=== PATIENT | male | born 1960 | race Caucasian/White ===

== ENCOUNTER 2021-10-06 16:36 | Inpatient (IN) | payer OTHER ==
[2021-10-06] MEDS ORDERED: ONDANSETRON 4 MG/2 ML VIAL ONE (22:38)
[2021-10-06] MEDS ORDERED: NA CHLORIDE 0.9% 1,000 ML ONE (22:38)
[2021-10-06] MEDS ORDERED: MORPHINE 4 MG/ML SYR ONE (22:38)
[2021-10-06 23:08] LABS: Absolute Lymphocytes (CBC) 3.1 K/uL (0.7-4.9); Hematocrit 47.7 % (39.6-49.0); Lymphocytes % 19.9 % (15.3-44.8); MPV 8.6 fL (7.6-11.3); RBC Red Blood Cell Count 5.07 M/uL (4.33-5.43)
[2021-10-06 23:13] LABS: Urine Amorphous Sediment 1+ /HPF (NONE SEEN); Urine Bacteria >50 /HPF (NONE SEEN); Urine Mucus 2+ /HPF (NONE SEEN); Urine RBC TNTC /HPF (NONE SEEN)
[2021-10-06 23:29] LABS: Bilirubin Direct 0.2 mg/dL (0-0.2); Bilirubin Total 0.8 mg/dL (0.2-1.0); Potassium 4.7 mmol/L (3.5-5.1); Protein, Total 8.5 g/dL (6.4-8.2)
--- NOTE | 2021-10-07 00:40 | ER ---
Nurse's Notes [facility] Name: Paxton Jordan Age: 61 yrs Sex: Male : 1960 Arrival Date: 10/06/2021 Time: 16:38 Bed 30 Private MD: Diagnosis: Pyelonephritis;Acute cystitis with hematuria Presentation: 10/06 18:20 Chief complaint: Patient states: pt reports blood in urine x1 days. denies pains when ackerman urinating. Coronavirus screen: Vaccine status: Patient reports receiving the 2nd dose of the covid vaccine. Ebola Screen: Patient reports travel to Ebola-affected area in the 21 days before illness onset. Patient reports having traveled to: [place]. Initial Sepsis Screen: Does the patient meet any 2 criteria? No. Patient's initial sepsis screen is negative. Does the patient have a suspected source of infection? No. Patient's initial sepsis screen is negative. Risk Assessment: Do you want to hurt yourself or someone else? Patient reports no desire to harm self or others. Onset of symptoms was October 05, 2021. 18:20 Method Of Arrival: Wheelchair ackerman 18:20 Acuity: MITESH 3 ackerman Triage Assessment: 18:23 General: Appears in no apparent distress. Behavior is calm, cooperative. Pain: ackerman Complains of pain in lumbar area, left low back and right low back. Musculoskeletal: Circulation, motion, and sensation intact. Reports pain in lumbar area, left low back and right low back. Historical: - Allergies: 18:23 No Known Allergies; ackerman - Immunization history:: Adult Immunizations up to date. - Social history:: Smoking status: Patient reports the use of cigarette tobacco products, smokes one-half pack cigarettes per day. Screenin:06 Abuse screen: Denies threats or abuse. Nutritional screening: No deficits noted. bb Tuberculosis screening: No symptoms or risk factors identified. Fall Risk None identified. Assessment: 22:06 General: Appears distressed, uncomfortable, Behavior is cooperative, anxious. Pain: bb Complains of pain in back. Neuro: Level of Consciousness is awake, alert, obeys commands, Oriented to person, place, time, situation. Cardiovascular: Capillary refill < 3 seconds Patient's skin is warm and dry. Respiratory: Respiratory effort is even, unlabored, Respiratory pattern is regular. GI: Abdomen is round. Derm: Skin is pink, warm \\T\\ dry. Musculoskeletal: Circulation, motion, and sensation intact. Reports pain in back. Vital Signs: 18:20 BP 84 / 51; Pulse 85; Resp 20; Temp 98.1(O); Pulse Ox 100% ; Weight 104.33 kg; Height 6 ackerman ft. 0 in. (182.88 cm); 18:20 Body Mass Index 31.19 (104.33 kg, 182.88 cm) ackerman ED Course: 16:38 Patient arrived in ED. as 18:23 Triage completed. ackerman 18:23 Arm band placed on right wrist. ackerman 22:06 Patient has correct armband on for positive identification. Adult w/ patient. bb 22:07 Antonio Henry NP is PHCP. pm1 22:07 Geoffrey Murcia MD is Attending Physician. pm1 23:01 Inserted saline lock: 22 gauge in left forearm, using aseptic technique. Blood ds4 collected. Missed attempt(s): 22 gauge in right wrist. Bleeding controlled, band aid applied, catheter tip intact. 23:24 Stone Protocol In Process Unspecified. EDMT 10/07 00:39 Rob Soto PA is Hospitalizing Provider. pm1 01:41 Carol Anne RN is Primary Nurse. [facility] 02:31 COVID-19 SARS RT PCR (Document "Date of Onset" if Symptomatic) Sent. [facility] Administered Medications: 10/06 23:02 Drug: morphine 4 mg Route: IVP; Site: left femoral; 10/07 01:36 Follow up: Response: No adverse reaction 10/06 23:02 Drug: Zofran (Ondansetron) 4 mg Route: IVP; Site: left forearm; 10/07 01:37 Follow up: Response: No adverse reaction 10/06 23:02 Drug: NS 0.9% 1000 ml Route: IV; Rate: 1000 ml; Site: left forearm; 10/07 02:24 Drug: Insulin Regular Human 10 units {Co-Signature: ernestina (Luna Roblero RN).} Route: sm5 IVP; Site: left forearm; 02:25 Drug: Rocephin (cefTRIAXone) 1 grams Route: IV; Rate: calculated rate; Site: left sm5 forearm; Outcome: 00:39 Decision to Hospitalize by Provider. pm1 17:13 Patient left the ED. [email or web address] Signatures: Dispatcher [employer] EDMS Michelle Gupta Brenda, RN RN Rodrigo Painter ds4 Antonio Henry NP PLANIMETER OPERATOR pm1 Shelley Amaral RN RN jl7 Carol Anne RN RN sm5 Radha Marie RN RN ackerman Luna do
--- NOTE | 2021-10-07 00:40 | EDPHYS ---
Physician Documentation [facility] Name: Paxton Jordan Age: 61 yrs Sex: Male : 1960 Arrival Date: 10/06/2021 Time: 16:38 Bed 30 Private MD: ED Physician Geoffrey Murcia HPI: 10/06 22:19 This 61 yrs old Male presents to ER via Wheelchair with complaints of Urinary Problem - pm1 blood, Back Pain. 22:19 The patient presents with urinary symptoms, Hematuria. Onset: The symptoms/episode pm1 began/occurred today. Modifying factors: The symptoms are alleviated by nothing, the symptoms are aggravated by nothing. Associated signs and symptoms: Pertinent positives: Low back pain that is different from his chronic low back pain, Pertinent negatives: constipation, diarrhea, fever, nausea, vomiting. Severity of symptoms: in the emergency department the symptoms have improved, hematuria appears to be improved. The patient has not experienced similar symptoms in the past. The patient has not recently seen a physician, and does not have an established primary care provider, just [facility]. Historical: - Allergies: 18:23 No Known Allergies; ackerman - Immunization history:: Adult Immunizations up to date. - Social history:: Smoking status: Patient reports the use of cigarette tobacco products, smokes one-half pack cigarettes per day. ROS: 22:19 Constitutional: Negative for fever, chills, and weight loss, Cardiovascular: Negative pm1 for chest pain, palpitations, and edema, Respiratory: Negative for shortness of breath, cough, wheezing, and pleuritic chest pain, Abdomen/GI: Negative for abdominal pain, nausea, vomiting, diarrhea, and constipation. 22:19 MS/Extremity: Negative for injury and deformity, Skin: Negative for injury, rash, and discoloration, Neuro: Negative for headache, weakness, numbness, tingling, and seizure. 22:19 Back: Positive for flank pain, bilaterally. 22:19 : Positive for hematuria, Negative for burning with urination, testicular pain 22:19 All other systems are negative. Exam: 22:19 Constitutional: This is a well developed, well nourished patient who is awake, alert, pm1 and in no acute distress. Head/Face: Normocephalic, atraumatic. 22:19 Skin: Warm, dry with normal turgor. Normal color with no rashes, no lesions, and no evidence of cellulitis. MS/ Extremity: Pulses equal, no cyanosis. Neurovascular intact. Full, normal range of motion. 22:19 Cardiovascular: Exam negative for acute changes, Rate: normal, Rhythm: regular, Pulses: no pulse deficits are appreciated. 22:19 Respiratory: Exam negative for acute changes, respiratory distress, shortness of breath, Breath sounds: are clear throughout. 22:19 Abdomen/GI: Inspection: obese Palpation: soft, in all quadrants, mild abdominal tenderness, in the suprapubic area. 22:19 Back: pain, that is mild, of the sacrum, left low back and right low back, vertebral tenderness, is not appreciated. 22:19 Neuro: Exam negative for acute changes, Orientation: is normal, Mentation: is normal, Motor: moves all fours. Vital Signs: 18:20 BP 84 / 51; Pulse 85; Resp 20; Temp 98.1(O); Pulse Ox 100% ; Weight 104.33 kg; Height 6 ackerman ft. 0 in. (182.88 cm); 18:20 Body Mass Index 31.19 (104.33 kg, 182.88 cm) ackerman MDM: 22:07 Patient medically screened. pm1 22:23 Data reviewed: vital signs. Data interpreted: Pulse oximetry: on room air is 100 %. pm1 Interpretation: normal. 10/07 00:36 Counseling: I had a detailed discussion with the patient and/or guardian regarding: the pm1 historical points, exam findings, and any diagnostic results supporting the discharge/admit diagnosis, lab results, radiology results, the need for further work-up and treatment in the hospital. 10/06 22:06 Order name: Basic Metabolic Panel; Complete Time: 23:57 pm1 10/06 22:06 Order name: CBC with Diff; Complete Time: 23:57 pm1 10/06 22:06 Order name: Hepatic Function; Complete Time: 23:57 pm1 10/06 22:06 Order name: Lipase; Complete Time: 23:57 pm1 10/06 22:06 Order name: Urine Microscopic Only; Complete Time: 23:57 pm1 10/06 23:14 Order name: Urine Culture EDMS 10/06 23:34 Order name: CREATININE WHOLE BLOOD; Complete Time: 23:57 EDMS 10/07 00:39 Order name: COVID-19 SARS RT PCR (Document "Date of Onset" if Symptomatic); Complete bb Time: 03:21 10/07 02:28 Order name: Glucose, Ancillary Testing; Complete Time: 03:07 EDHI 10/07 06:48 Order name: NT PRO-BNP ED[facility] 10/07 07:54 Order name: Hemoglobin A1c [facility] 10/07 08:19 Order name: Glucose, Ancillary Testing [facility] 10/07 11:48 Order name: Glucose, Ancillary Testing [facility] 10/07 16:27 Order name: Glucose, Ancillary Testing [facility] 10/06 22:06 Order name: IV Saline Lock; Complete Time: 23:01 pm1 10/06 22:06 Order name: Labs collected and sent; Complete Time: 23:01 pm1 10/06 22:06 Order name: Urine Dipstick-Ancillary (obtain specimen); Complete Time: 23:02 pm1 10/06 23:09 Order name: Stone Protocol EDHI Administered Medications: 10/06 23:02 Drug: morphine 4 mg Route: IVP; Site: left femoral; 10/07 01:36 Follow up: Response: No adverse reaction 10/06 23:02 Drug: Zofran (Ondansetron) 4 mg Route: IVP; Site: left forearm; 10/07 01:37 Follow up: Response: No adverse reaction 10/06 23:02 Drug: NS 0.9% 1000 ml Route: IV; Rate: 1000 ml; Site: left forearm; 10/07 02:24 Drug: Insulin Regular Human 10 units {Co-Signature: ernestina (Luna Roblero RN).} Route: sm5 IVP; Site: left forearm; 02:25 Drug: Rocephin (cefTRIAXone) 1 grams Route: IV; Rate: calculated rate; Site: left sm5 forearm; Disposition: 19:26 Co-signature as Attending Physician, Geoffrey Murcia MD. [email or web address] Disposition Summary: 10/07/21 00:39 Hospitalization Ordered Hospitalization Status: Inpatient Admission pm1 Provider: Rob Soto pm1 Condition: Stable pm1 Problem: new pm1 Symptoms: have improved pm1 Bed/Room Type: Standard pm1 Location: Telemetry/MedSurg (Inpatient)(10/07/21 15:26) Room Assignment: [facility](10/07/21 15:26) dw Diagnosis - Pyelonephritis pm1 - Acute cystitis with hematuria pm1 Forms: - Medication Reconciliation Form pm1 - SBAR form pm1 Signatures: Dispatcher [employer] EDMS Karrie Carter, RN Erin Aldana RN RN Luna Mendez RN RN bb Marinas, Patrick, BUSINESS ADMINISTRATION TEACHER BUSINESS ADMINISTRATION TEACHER pm1 Geoffrey Murcia MD MD 7 Carol Anne RN RN 5 Radha Marie RN RN ackerman Luna do Corrections: (The following items were deleted from the chart) 10/06 23:09 22:07 Abdomen Pelvis W Con+CT.RAD.BRZ ordered. [facility] 10/07 03:56 00:39 Telemetry/MedSurg (Inpatient) pm1 mw 03:56 00:39 pm1 mw 15:26 03:56 BR ER HOLD mw dw 15:26 03:56 ERHOLD- mw
[2021-10-07] MEDS ORDERED: INSULIN -REGULAR HUMAN 50 UNIT/0.5 ML ML ONE ×4 (02:02→16:22)
[2021-10-07] MEDS ORDERED: CEFTRIAXONE 1000 MG/VIAL ONE (02:04)
--- NOTE | 2021-10-07 02:20 | P.HP ---
Certification for Inpatient Patient admitted to: Inpatient With expected LOS: <2 Midnights Patient will require the following post-hospital care: None Practitioner: I am a practitioner with admitting privileges, knowledge of patient current condition, hospital course, and medical plan of care. Services: Services provided to patient in accordance with Admission requirements found in Title 42 Section 412.3 of the Code of Federal Regulations Patient History Date of Service: 10/07/21 Reason for admission: pyelonephritis History of Present Illness: Mr. Jordan is a 61 yo M with CAD, T2DM, CKD 4 (last baseline GFR 20), hypothyroidism and chroni back pain here today for worsening abdominal pain, lower back pain and back spasms for the past two nights. He also reports hematuria and dysuria. He has not had an appetite for the past several days. Denies nausea, vomiting, fever, frequency. CTAP concerning for pyelonephritis. UA positive for RBCs, WBCs, and bacteria. WBC 15.6 Na 127 Cl 97 HCO3 19 BUN 50 Cr 3.71 GFR 17 Glu 432. He is new to the area, moved here from [place], and does not yet have a PCP. - Past Medical/Surgical History -: DM -: CAD -: hypothyroidism -: CKD 4 -: chronic back pain -: CABG x 5 -: cardiac stents -: IVC filter -: tonsillectomy - Family History Family History: Reviewed- Non-Contributory - Social History Smoking Status: Current every day smoker Alcohol use: No CD- Drugs: No Caffeine use: Yes Place of Residence: Home Review of Systems 10-point ROS is otherwise unremarkable Gastrointestinal: Abdominal Pain Genitourinary: Dysuria, Hematuria Musculoskeletal: Back Pain Physical Examination - Physical Exam General: Alert, In no apparent distress HEENT: Atraumatic, PERRLA, Mucous membr. moist/pink, EOMI, Sclerae nonicteric Neck: Supple, 2+ carotid pulse no bruit, No LAD, Without JVD or thyroid abnormality Respiratory: Clear to auscultation bilaterally, Normal air movement Cardiovascular: Regular rate/rhythm, Normal S1 S2 Gastrointestinal: Normal bowel sounds, No ascites, No masses, No rebound, No guarding, Tenderness Musculoskeletal: No tenderness Integumentary: No rashes Neurological: Normal speech, Normal strength at 5/5 x4 extr, Normal tone, Normal affect Lymphatics: No axilla or inguinal lymphadenopathy - Studies Laboratory Data (last 24 hrs) 10/06/21 22:58: WBC 15.60 H, Hgb 15.8, Hct 47.7, Plt Count 202 10/06/21 22:58: Sodium 127 L, Potassium 4.7, BUN 50 H, Creatinine 3.71 H, Glucose 432 H*, Total Bilirubin 0.8, AST 15, ALT 33, Alkaline Phosphatase 99, Lipase 181 Assessment and Plan - Problems (Diagnosis) (1) Pyelonephritis Current Visit: Yes Status: Acute (2) CAD (coronary artery disease) Current Visit: Yes Status: Chronic Qualifiers: Coronary Disease-Associated Artery/Lesion type: bypass graft [place] vs. transplanted heart: [place] heart Associated angina: without angina Qualified Code(s): I25.810 - Atherosclerosis of coronary artery bypass graft(s) without angina pectoris (3) T2DM (type 2 diabetes mellitus) Current Visit: Yes Status: Chronic Qualifiers: Diabetes mellitus termite exterminator insulin use: with termite exterminator use Diabetes mellitus complication status: with kidney complications Diabetes mellitus complication detail: with chronic kidney disease Chronic kidney disease stage: stage 4 (severe) Qualified Code(s): E11.22 - Type 2 diabetes mellitus with diabetic chronic kidney disease; N18.4 - Chronic kidney disease, stage 4 (severe); Z79.4 - alf (current) use of insulin (4) Hypothyroid Current Visit: Yes Status: Chronic Qualifiers: Hypothyroidism type: unspecified Qualified Code(s): E03.9 - Hypothyroidism, unspecified (5) Chronic pain Current Visit: Yes Status: Chronic Qualifiers: Chronic pain type: other chronic pain Qualified Code(s): G89.29 - Other chronic pain - Plan continue IV ceftriaxone, gentle IV fluid hydration urine culture and blood culture pending reconcile and continue home medications A1c pending, aggressive sliding scale insulin pain management as needed monitor kidney function BNP pending DVT ppx Discharge Plan: Home Plan to discharge in: 48 Hours - Advance Directives Does patient have a Living Will: No Does patient have a Durable POA for Healthcare: No - Code Status/Comfort Care Code Status Assessed: Yes (full code) Critical Care: No Time Spent Managing Pts Care (In Minutes): 70
[2021-10-07] MEDS ORDERED: ACETAMINOPHEN 500 MG TAB PO PRN (03:30)
[2021-10-07] MEDS ORDERED: NA CHLORIDE 0.9% 1,000 ML IV SCH (03:30)
[2021-10-07] MEDS ORDERED: ONDANSETRON 4 MG/2 ML VIAL IV PRN (03:30)
[2021-10-07 04:49] VITALS: BMI 31.1
[2021-10-07] MEDS ORDERED: HEPARIN 5000 UNIT/ML 1 ML VIAL ONE (08:17)
[2021-10-07] MEDS ORDERED: NA CHLORIDE 0.9% 1,000 ML ONE (08:18)
[2021-10-07] MEDS: INSULIN -REGULAR HUMAN 50 UNIT/0.5 ML ML SQ SCH ×4 (08:20→20:54)
[2021-10-07] MEDS: HEPARIN 5000 UNIT/ML 1 ML VIAL SQ SCH ×2 (08:20→16:48)
[2021-10-07] MEDS: MORPHINE 2 MG/ML SYR IV PRN ×3 (10:24→21:56)
[2021-10-07] MEDS ORDERED: MORPHINE 2 MG/ML SYR ONE ×2 (10:24→16:01)
[2021-10-07] MEDS ORDERED: NITROGLYCERIN 0.4 MG/TAB SL PRN (14:03)
[2021-10-07] MEDS ORDERED: CYCLOBENZAPRINE 10 MG TAB PO PRN (14:03)
[2021-10-07] MEDS ORDERED: CALCIUM CARBONATE 470 MG PO PRN (14:03)
[2021-10-07] MEDS: CLOPIDOGREL 75 MG TABLET PO SCH (14:26)
--- NOTE | 2021-10-07 14:26 | P.PN ---
Date of Service: 10/07/21 Patient seen and examined. CT abdomen and pelvis results reviewed. Bladder wall thickening indicating of cystitis noted. Diagnosis: Acute pyelonephritis/cystitis. History of congestive heart failure. Chronic pain. Hypotension: septic shock versus dehydration Plan: Continue IV antibiotics. Follow blood culture and urine cultures. Resume home medications for CHF and chronic pain. CT abdomen pelvis shows no acute abnormality in the skeletal structures. Resume Lantus insulin. Insulin sliding scale. Renal insufficiency-I suspect CKD. Nephrology consult. Monitor renal function. Nephrology consult. Monitor CBC to follow leukocytosis.
[2021-10-07] MEDS ORDERED: FUROSEMIDE 40 MG TABLET ONE (14:27)
[2021-10-07] MEDS ORDERED: CLOPIDOGREL 75 MG TABLET ONE (14:27)
[2021-10-07] MEDS ORDERED: CALCIUM CARBONATE CHEW 500MG TAB PO PRN (14:52)
[2021-10-07] MEDS ORDERED: FUROSEMIDE 40 MG TABLET PO SCH (15:00)
--- NOTE | 2021-10-07 16:58 | P.CNS ---
Date of Consult: 10/07/21 Reason for Consult: ALESSANDRA/ CKD/ Hyponatremia Requesting Physician: colin eli Chief Complaint: Pyelonephritis History of Present Illness: 61 yo WM CAD, CKD, DM presented to the ER for two days of severe, progressive low back pain with associated abdominal pain, dysuria and hematuria. Anorexia. He states that his hematuria has resolved but reports a dark urine. No NSAIDs. He denies any urinary difficulties except for the past two days with hesitancy and a slow stream. He is feeling better with morphine. He lives in [place] but has been in this area since February. 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 Mr. Jordan is a 61 yo M with CAD, T2DM, CKD 4 (last baseline GFR 20), hypothyroidism and chroni back pain here today for worsening abdominal pain, lower back pain and back spasms for the past two nights. He also reports hematuria and dysuria. He has not had an appetite for the past several days. Denies nausea, vomiting, fever, frequency. CTAP concerning for pyelonephritis. UA positive for RBCs, WBCs, and bacteria. Allergies No Known Allergies Allergy (Unverified 10/07/21 03:29) Home medications list reviewed: Yes Home Medications: Aspirin [Aspirin EC 81 MG] 81 mg PO DAILY 10/07/21 Bupropion *Xl* [Wellbutrin XL] 300 mg PO DAILY 10/07/21 Calcium Carbonate [Tums Ultra Strength] 1,177 mg PO TID PRN 10/07/21 Carvedilol [Coreg] 12.5 mg PO BID 10/07/21 Citalopram [Celexa] 40 mg PO DAILY 10/07/21 Clopidogrel Bisulfate [Plavix] 75 mg PO DAILY 10/07/21 Cyclobenzaprine [Flexeril] 10 mg PO TID PRN 10/07/21 Docusate Sodium [Dulcolax Stool Softener] 100 mg PO DAILY 10/07/21 Esomeprazole Magnesium [Nexium 24Hr] 20 mg PO DAILY 10/07/21 Fish Oil/Dha/Epa [Fish Oil 1,200 mg Fish Oil] 2,400 mg PO DAILY 10/07/21 Furosemide 40 mg PO DAILY 10/07/21 Insulin Glargine,Hum.rec.anlog [Toujeo Solostar] 20 unit SQ DAILY 10/07/21 Insulin NPH Hum/Reg Insulin Hm [Novolin 70-30 100 Unit/ml Vial] 50 unit SQ BID 10/07/21 Levothyroxine [Synthroid] 50 mcg PO [id number] 10/07/21 Lisinopril [Zestril] 10 mg PO DAILY 10/07/21 Nitroglycerin 0.4 mg SL SEECOM PRN 10/07/21 Oxycodone HCl/Acetaminophen [Percocet 5/325 Tab] 1 tab PO Q6H PRN 10/07/21 Potassium Chloride 20 meq PO DAILY 10/07/21 Quetiapine [Seroquel] 150 mg PO DAILY 10/07/21 Simvastatin 80 mg PO BEDTIME 10/07/21 Testost Cypionate [Depo-Testosterone] 0.5 ml IM SEECOM 10/07/21 Vardenafil HCl [Levitra] 20 mg PO DAILY 10/07/21 - Past Medical/Surgical History -: DM -: CAD -: hypothyroidism -: CKD 4 -: chronic back pain -: CABG x 5 -: cardiac stents -: IVC filter -: tonsillectomy - Social History Alcohol use: No CD- Drugs: No Caffeine use: Yes Place of Residence: Home Review of Systems 10-point ROS is otherwise unremarkable General: Weakness, Malaise Cardiovascular: Edema Genitourinary: Dysuria, Retention Physical Examination Temp Pulse Resp BP Pulse Ox 97.9 F 74 16 107/57 L 95 10/07/21 15:57 10/07/21 15:57 10/07/21 15:57 10/07/21 15:57 10/07/21 04:00 General: Oriented x3, Cooperative, Mild distress HEENT: Atraumatic Neck: Supple Respiratory: Clear to auscultation bilaterally Cardiovascular: No edema, Regular rate/rhythm Gastrointestinal: Non-distended, No guarding, Tenderness Musculoskeletal: No clubbing, No contractures, Tenderness Integumentary: No rashes, No cyanosis Neurological: Normal speech Laboratory Data (last 24 hrs) 10/06/21 22:58: WBC 15.60 H, Hgb 15.8, Hct 47.7, Plt Count 202 10/06/21 22:58: Sodium 127 L, Potassium 4.7, BUN 50 H, Creatinine 3.71 H, Glucose 432 H*, Total Bilirubin 0.8, AST 15, ALT 33, Alkaline Phosphatase 99, Lipase 181 Conclusions/Impression: ALESSANDRA likely due to hypovolemia and pyelonephritis CKD IV -No NSAIDs -Continue IVF with NS Hyponatremia -Continue IVF with NS Acidosis -Start oral bicarb HTN with CKD -Continue Coreg -Continue Lisinopril LE Edema -Hold furosemide and potassium at this time DM II with CKD & Hyperglycemia -Continue Lantus -RISS BPH with LUTS? -Start Flomax BID Acute Pyelonephritis -Continue Rocephin -Follow up cultures -Continue IVF Thank you kindly for the consultation.
[2021-10-07 17:28] VITALS: O2SAT 100
--- NOTE | 2021-10-07 20:31 | RAD REPORT ---
EXAM DESCRIPTION: CT - Stone Protocol - 10/07/2021 6:46 am CLINICAL HISTORY: Hematuria;Flank pain. COMPARISON: None. TECHNIQUE: Serial axial CT images were obtained from above the diaphragm through the pubic symphysis without administration of intravenous or oral contrast. All CT scans are performed using dose optimization techniques as appropriate, including automated exp osure control and/or standardized protocols, where dose is adjusted for indication for exam and body habitus. FINDINGS: Thoracic: No significant abnormality. Hepatobiliary: No obvious concerning hepatic lesion identified in the absence of intravenous contrast . The gallbladder is unremarkable. No biliary ductal dilatation. Pancreas: Unremarkable. Spleen: Unremarkable. Gastrointestinal: No evidence of bowel obstruction or perienteric inflammation. The appendix is nonvi sualized, but there are no pericecal inflammatory changes. Adrenals: No abnormality identified in either adrenal gland. Renal: Mild bilateral perinephric fat stranding. No obvious parenchymal abnormality in either kidney in the absence of intravenous contrast. No hydronephrosis or urolithiasis. Bladder/Reproductive: Moderate diffuse bladder wall thickening with surrounding fat stranding. Mild p rostatomegaly. Vascular/Lymphatics: No lymphadenopathy identified by CT size criteria. Abdominal aorta is normal in caliber. Infrarenal IVC filter in place. Moderate calcific atherosclerosis. Musculoskeletal: No concerning osseous lesion identified. Prominent disc height loss at L5-S1. Fluid / peritoneum: No significant free fluid. No free intraperitoneal air identified. IMPRESSION: 1. Moderate diffuse bladder wall thickening with surrounding fat stranding, suggestive of cystitis. Consider follow-up imaging or direct visualization to ensure resolution and exclude und erlying malignancy. 2. Mild bilateral perinephric fat stranding, likely sequela of remote prior insult. No hydronephros is or urolithiasis. 3. Mild prostatomegaly. Electronically signed by: Lizzy Dixon MD 10/06/2021 11:56 PM PRINCIPAL PROCESS ENGINEER Due to temporary technical issues with the PACS/Fluency reporting system, reports are being signed by the in house radiologists without review as a courtesy to insure prompt reporting. The interpreting radiologist is fully responsible for the content of the report.
[2021-10-07] MEDS: carvediloL 12.5 MG TAB PO SCH (20:52)
[2021-10-07] MEDS: QUETIAPINE 100MG TAB PO SCH (20:53)
[2021-10-07] MEDS: HOME MED 1 EA UNK (Simvastatin [Simvastatin] 80 MG Tablet) PO SCH (20:55)
[2021-10-07] MEDS: TAMSULOSIN 0.4 MG SR CAP PO SCH (21:00)
[2021-10-07] MEDS ORDERED: HOME MED 1 EA UNK (Insulin Glargine,Hum.Rec.Anlog [Toujeo Solostar] 300 UNIT/ML Insuln.Pen SQ SCH (21:00)
[2021-10-07] MEDS ORDERED: HOME MED 1 EA UNK (Simvastatin [Simvastatin] 80 MG Tablet) PO SCH (21:00)
[2021-10-07] MEDS: NA CHLORIDE 0.9% 1,000 ML IV SCH (21:57)
[2021-10-08] MEDS: CEFTRIAXONE 1,000 MG in NA CHLORIDE 0.9% 50 ML IVPB SCH ×2 (01:43→08:44)
[2021-10-08] MEDS: HEPARIN 5000 UNIT/ML 1 ML VIAL SQ SCH ×3 (01:43→17:44)
[2021-10-08 04:44] LABS: Urine Appearance CLEAR (Clear); Urine Bilirubin NEGATIVE (Negative); Urine Blood NEGATIVE (Negative); Urine Color YELLOW (Yellow); Urine Glucose 2+ (Negative); Urine Protein NEGATIVE (Negative); Urine Urobilinogen 0.2 mg/dL (0.2-1.0); Urine pH 5.5 (5.0-7.0)
[2021-10-08 05:01] LABS: UR PROTEIN 10.4 mg/dL (<11.9); Urine Protein/Creatinine Ratio 0.11 ratio (<0.15)
[2021-10-08 05:03] LABS: Urine Bacteria 20-50 /HPF (NONE SEEN); Urine Mucus 1+ /HPF (NONE SEEN); Urine RBC <5 /HPF (NONE SEEN)
[2021-10-08 05:04] LABS: Urine Sperm PRESENT (NONE SEEN)
[2021-10-08] MEDS: LEVOTHYROXINE SOD 0.05 MG TABLET PO SCH (05:30)
[2021-10-08 06:07] LABS: Absolute Lymphocytes (CBC) 2.6 K/uL (0.7-4.9); Hematocrit 39.9 % (39.6-49.0); Lymphocytes % 26.4 % (15.3-44.8); MPV 8.4 fL (7.6-11.3); RBC Red Blood Cell Count 4.34 M/uL (4.33-5.43)
[2021-10-08 07:42] LABS: Albumin 3.3 g/dL (3.4-5.0); Bilirubin Total 0.5 mg/dL (0.2-1.0); Magnesium 2.5 mg/dL (1.8-2.4); Phosphorus 2.8 mg/dL (2.5-4.9); Potassium 4.5 mmol/L (3.5-5.1); Protein, Total 7.4 g/dL (6.4-8.2); Thyroid Stimulating Hormone 0.591 uIU/mL (0.360-3.740); Uric Acid 9.6 mg/dL (3.5-7.2)
[2021-10-08] MEDS: lisinopriL 10 MG TAB PO SCH (08:40)
[2021-10-08] MEDS: CLOPIDOGREL 75 MG TABLET PO SCH (08:40)
[2021-10-08] MEDS: ASPIRIN EC 81 MG TAB PO SCH (08:40)
[2021-10-08] MEDS: TAMSULOSIN 0.4 MG SR CAP PO SCH ×2 (08:41→21:50)
[2021-10-08] MEDS: carvediloL 12.5 MG TAB PO SCH ×2 (08:42→21:49)
[2021-10-08] MEDS: PANTOPRAZOLE 40MG TABLET PO SCH (08:43)
[2021-10-08] MEDS: INSULIN GLARGINE 100 UNIT/ML SQ SCH (08:43)
[2021-10-08] MEDS: INSULIN -REGULAR HUMAN 50 UNIT/0.5 ML ML SQ SCH ×4 (08:50→21:50)
[2021-10-08] MEDS: BUPROPION HCL XL 150 MG TAB PO SCH (08:50)
[2021-10-08] MEDS ORDERED: ESOMEPRAZOLE MAGNESIUM 20 MG PO SCH (09:00)
[2021-10-08] MEDS ORDERED: HOME MED 1 EA UNK (Potassium Chloride [Potassium Chloride] 20 MEQ Tablet.Er) PO SCH (09:00)
[2021-10-08] MEDS: DOCOSAHEXANOIC AC/EPA 1000 MG PO SCH (09:00)
[2021-10-08] MEDS ORDERED: QUETIAPINE 100MG TAB PO SCH (09:00)
[2021-10-08] MEDS ORDERED: HOME MED 1 EA UNK (Fish Oil/Dha/Epa [Fish Oil 1,200 Mg Fish Oil] Capsule) PO SCH (09:00)
[2021-10-08] MEDS ORDERED: POTASSIUM CL SA 10 MEQ TAB PO SCH (09:00)
[2021-10-08] MEDS ORDERED: CITALOPRAM 10 MG TABLET PO SCH (09:00)
[2021-10-08] MEDS ORDERED: DOCUSATE NA 100 MG CAP PO SCH (09:00)
[2021-10-08] MEDS: Oxycodone HCl/Acetaminophen 1 TAB TAB PO PRN ×2 (09:02→17:45)
--- NOTE | 2021-10-08 11:24 | P.PN ---
Subjective Date of Service: 10/08/21 Chief Complaint: Pyelonephritis Patient states he is doing much better. States he is making more urine. States the back pain is better. Serum creatinine trended down from yesterday. Physical Examination - Vital Signs Temperature: 97.5 F Blood Pressure: 115/58 Pulse: 75 Respirations: 17 Pulse Ox (%): 96 - Physical Exam General: Alert, In no apparent distress, Oriented x3 HEENT: Mucous membr. moist/pink Neck: JVD not distended Respiratory: Clear to auscultation bilaterally, Normal air movement Cardiovascular: No edema, Regular rate/rhythm, Normal S1 S2 Gastrointestinal: Soft and benign, Non-distended, No tenderness Musculoskeletal: No swelling, Other (No spine tenderness) Integumentary: No rashes Neurological: Normal strength at 5/5 x4 extr Assessment And Plan - Current Problems (Diagnosis) (1) Acute renal failure superimposed on stage 3 chronic kidney disease Current Visit: Yes Status: Acute (2) BPH (benign prostatic hyperplasia) Current Visit: Yes Status: Acute (3) Pyelonephritis Current Visit: Yes Status: Acute (4) T2DM (type 2 diabetes mellitus) Current Visit: Yes Status: Chronic Qualifiers: Diabetes mellitus usp insulin use: with usp use Diabetes mellitus complication status: with kidney complications Diabetes mellitus complication detail: with chronic kidney disease Chronic kidney disease stage: stage 4 (severe) Qualified Code(s): E11.22 - Type 2 diabetes mellitus with diabetic chronic kidney disease; N18.4 - Chronic kidney disease, stage 4 (severe); Z79.4 - detention (current) use of insulin - Plan Patient clinically improving. Urine culture: Mixed growth. Serum creatinine improved. Continue IV antibiotics. IV hydration for ALESSANDRA. Continue to monitor renal function. Nephrology input appreciated. CT abdomen and pelvis results reviewed. There is a report of significant loss of disc height at L5-S1. Cannot do MRI due to presence of IVC filter. Supportive measures with pain management. Patient with suspected BPH. He started on Flomax. Leukocytosis resolved. Blood cultures not taking on admission. Will obtain blood culture. Lasix is on hold due to ALESSANDRA. Continue insulin sliding scale and titrate Lantus insulin.
[2021-10-08] MEDS: NA CHLORIDE 0.9% 1,000 ML IV SCH (12:50)
[2021-10-08] MEDS ORDERED: DOCUSATE NA/SENNA CONC 1 TAB PO PRN (20:45)
[2021-10-08] MEDS: HOME MED 1 EA UNK (Simvastatin [Simvastatin] 80 MG Tablet) PO SCH (21:00)
[2021-10-08] MEDS ORDERED: LACTULOSE 20 GM/30 ML UCUP PO PRN (21:06)
[2021-10-08] MEDS: DOCUSATE NA 100 MG CAP PO SCH (21:49)
[2021-10-08] MEDS: QUETIAPINE 100MG TAB PO SCH (21:49)
[2021-10-09] MEDS: Oxycodone HCl/Acetaminophen 1 TAB TAB PO PRN (00:36)
[2021-10-09] MEDS: NA CHLORIDE 0.9% 1,000 ML IV SCH (00:36)
[2021-10-09] MEDS: HEPARIN 5000 UNIT/ML 1 ML VIAL SQ SCH ×2 (00:36→09:40)
[2021-10-09] MEDS: LEVOTHYROXINE SOD 0.05 MG TABLET PO SCH (06:41)
[2021-10-09] MEDS: INSULIN -REGULAR HUMAN 50 UNIT/0.5 ML ML SQ SCH ×2 (08:00→12:29)
[2021-10-09] MEDS ORDERED: CITALOPRAM 10 MG TABLET PO SCH (09:00)
[2021-10-09] MEDS: DOCOSAHEXANOIC AC/EPA 1000 MG PO SCH (09:00)
[2021-10-09] MEDS: ASPIRIN EC 81 MG TAB PO SCH (09:34)
[2021-10-09] MEDS: carvediloL 12.5 MG TAB PO SCH (09:34)
[2021-10-09] MEDS: PANTOPRAZOLE 40MG TABLET PO SCH (09:34)
[2021-10-09] MEDS: BUPROPION HCL XL 150 MG TAB PO SCH (09:34)
[2021-10-09] MEDS: lisinopriL 10 MG TAB PO SCH (09:34)
[2021-10-09] MEDS: TAMSULOSIN 0.4 MG SR CAP PO SCH (09:35)
[2021-10-09] MEDS: DOCUSATE NA 100 MG CAP PO SCH (09:35)
[2021-10-09] MEDS: CEFTRIAXONE 1,000 MG in NA CHLORIDE 0.9% 50 ML IVPB SCH (09:35)
[2021-10-09] MEDS: CLOPIDOGREL 75 MG TABLET PO SCH (09:35)
[2021-10-09] MEDS: INSULIN GLARGINE 100 UNIT/ML SQ SCH (09:37)
--- NOTE | 2021-10-09 10:55 | P.DS ---
Admission Date: 10/07/21 Discharge Date: 10/09/21 Disposition: ROUTINE DISCHARGE Discharge Condition: FAIR Reason for Admission: Pyelonephritis - Problems (1) Acute renal failure superimposed on stage 3 chronic kidney disease Current Visit: Yes Status: Acute (2) BPH (benign prostatic hyperplasia) Current Visit: Yes Status: Acute (3) Pyelonephritis Current Visit: Yes Status: Acute (4) T2DM (type 2 diabetes mellitus) Current Visit: Yes Status: Chronic Qualifiers: Diabetes mellitus senior care insulin use: with senior care use Diabetes mellitus complication status: with kidney complications Diabetes mellitus complication detail: with chronic kidney disease Chronic kidney disease stage: stage 4 (severe) Qualified Code(s): E11.22 - Type 2 diabetes mellitus with diabetic chronic kidney disease; N18.4 - Chronic kidney disease, stage 4 (severe); 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 Jordan is a 61 yo M with CAD, T2DM, CKD 4 (last baseline GFR 20), hypothyroidism and chronic back pain here today for worsening abdominal pain, lower back pain and back spasms for 2 days. He also reported hematuria and dysuria. CTAP done was concerning for pyelonephritis. UA positive for RBCs, WBCs, and bacteria. WBC 15.6 Na 127 Cl 97 HCO3 19 BUN 50 Cr 3.71 GFR 17 Glu 432. He is new to the area, moved here from [place], and does not yet have a PCP. Patient admitted for further management acute pyelonephritis. Hospital Course: Patient admitted to the medical floor and started on IV Rocephin. Urine culture: Mixed growth. Serum creatinine was 3.7, baseline unknown and patient has been to have acute renal failure. Of note CT abdomen and pelvis demonstrated some prostatic enlargement, no hydronephrosis. His UTI likely related to BPH with LUTS. Patient started on Flomax. Acute renal failure treated with IV hydration. Serum creatinine improved. Nephrology-Dr. Jernigan saw patient and assisted with management Patient was complaining of low back pain. CT abdomen and pelvis results reviewed. There is a report of significant loss of disc height at L5-S1. Cannot do MRI due to presence of IVC filter. Patient informed of the CT scan finding and advised to see a spine surgeon as an outpatient. 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 He had leukocytosis which resolved. Lasix is on hold due to ALESSANDRA. Holding Lasix on discharge until for renal recovery. Patient will follow with Dr. Jernigan as an outpatient Blood sugar managed with insulin sliding scale and Lantus insulin. Noted patient is on Lantus insulin and Novolin 70/30 at home Vital Signs/Physical Exam: Temp Pulse Resp BP Pulse Ox 97.6 F 74 15 121/56 L 97 10/09/21 07:59 10/09/21 07:59 10/09/21 07:59 10/09/21 07:59 10/09/21 07:59 General: Alert, In no apparent distress, Oriented x3 HEENT: Mucous membr. moist/pink Neck: JVD not distended Respiratory: Clear to auscultation bilaterally, Normal air movement Cardiovascular: No edema, Regular rate/rhythm Gastrointestinal: Soft and benign, Non-distended Musculoskeletal: No swelling Integumentary: No rashes, No erythema Neurological: Normal strength at 5/5 x4 extr Laboratory Data at Discharge: WBC 9.90 K/uL (4.3-10.9) D 10/08/21 05:53 Hgb 13.7 g/dL (13.6-17.9) 10/08/21 05:53 Hct 39.9 % (39.6-49.0) D 10/08/21 05:53 Plt Count 155 K/uL (152-406) D 10/08/21 05:53 Sodium 132 mmol/L (136-145) L 10/08/21 05:53 Potassium 4.5 mmol/L (3.5-5.1) 10/08/21 05:53 BUN 51 mg/dL (7-18) H 10/08/21 05:53 Creatinine 1.95 mg/dL (0.55-1.3) H D 10/08/21 05:53 Glucose 301 mg/dL (74-106) H 10/08/21 05:53 Uric Acid 9.6 mg/dL (3.5-7.2) H 10/08/21 05:53 Phosphorus 2.8 mg/dL (2.5-4.9) 10/08/21 05:53 Magnesium 2.5 mg/dL (1.8-2.4) H 10/08/21 05:53 Total Bilirubin 0.5 mg/dL (0.2-1.0) 10/08/21 05:53 AST 15 U/L (15-37) 10/08/21 05:53 ALT 24 U/L (12-78) 10/08/21 05:53 Alkaline Phosphatase 85 U/L (45-117) 10/08/21 05:53 Triglycerides 251 mg/dL (<150) H 10/08/21 05:53 Cholesterol 139 mg/dL (<200) 10/08/21 05:53 HDL Cholesterol 27 mg/dL (40-60) L 10/08/21 05:53 Cholesterol/HDL Ratio 5.15 10/08/21 05:53 Lipase 181 U/L (73-393) 10/06/21 22:58 Home Medications: Aspirin [Aspirin EC 81 MG] 81 mg PO DAILY 10/07/21 Bupropion *Xl* [Wellbutrin XL*] 300 mg PO DAILY 10/07/21 Calcium Carbonate [Tums Ultra Strength] 1,177 mg PO TID PRN 10/07/21 Carvedilol [Coreg] 12.5 mg PO BID 10/07/21 Citalopram [Celexa*] 40 mg PO DAILY 10/07/21 Clopidogrel Bisulfate [Plavix*] 75 mg PO DAILY 10/07/21 Cyclobenzaprine [Flexeril*] 10 mg PO TID PRN 10/07/21 Esomeprazole Magnesium [Nexium 24Hr] 20 mg PO DAILY 10/07/21 Fish Oil/Dha/Epa [Fish Oil 1,200 mg Fish Oil] 2,400 mg PO DAILY 10/07/21 Insulin Glargine,Hum.rec.anlog [Toulolitao Solostar] 20 unit SQ DAILY 10/07/21 Insulin NPH Hum/Reg Insulin Hm [Novolin 70-30 100 Unit/ml Vial] 50 unit SQ BID 10/07/21 Levothyroxine [Synthroid*] 50 mcg PO [id number] 10/07/21 Lisinopril [Zestril] 10 mg PO DAILY 10/07/21 Nitroglycerin 0.4 mg SL SEECOM PRN 10/07/21 Oxycodone HCl/Acetaminophen [Percocet 5/325 Tab*] 1 tab PO Q6H PRN 10/07/21 Quetiapine [Seroquel*] 150 mg PO DAILY 10/07/21 Simvastatin 80 mg PO BEDTIME 10/07/21 Testost Cypionate [Depo-Testosterone*] 0.5 ml IM SEECOM 10/07/21 Vardenafil HCl [Levitra] 20 mg PO DAILY 10/07/21 Docusate [Colace Cap*] 100 mg PO BID #60 cap 10/09/21 Lactobacillus Acidophilus [Acidophilus] 1 each PO TID #30 tablet 10/09/21 Magnesium Citrate [Citroma*] 300 ml PO ONCE #1 btl 10/09/21 Tamsulosin [Flomax*] 0.4 mg PO BID #60 cap 10/09/21 levoFLOXacin [Levaquin] 750 mg PO DAILY #8 tab 10/09/21 New Medications: Lactobacillus Acidophilus [Acidophilus] 1 each PO TID #30 tablet Magnesium Citrate [Citroma*] 300 ml PO ONCE #1 btl Docusate [Colace Cap*] 100 mg PO BID #60 cap Tamsulosin [Flomax*] 0.4 mg PO BID #60 cap levoFLOXacin [Levaquin] 750 mg PO DAILY #8 tab Physician Discharge Instructions: You need to follow-up with a spine surgeon regarding your low back pain. Diet: ADA Activity: Ad jaime Followup: Fie Jernigan DO [ACTIVE - CAN ADMIT] - 1-2 Weeks NONE,NONE [Primary Care Provider] - Jeovany Carlin [ACTIVE - CAN ADMIT] - 1-2 Weeks (BPH) Time spent managing pt's care (in minutes): 37
[2021-10-09 11:23] VITALS: BP 128/72; TEMP 97.9
--- NOTE | 2021-10-09 19:03 | P.PN ---
Date of Service: 10/08/21 Vital Signs Temp Pulse Resp BP Pulse Ox 97.9 F 63 15 128/72 98 10/09/21 11:22 10/09/21 11:22 10/09/21 11:22 10/09/21 11:22 10/09/21 11:22 Microbiology Results 10/06/21 22:45 Clean Catch Urine [place] Count - Final <10,000 CFU/ML. 10/06/21 22:45 Clean Catch Urine - Final MIXED EUGENIO. Assessment/ Plan: Nephrology No dyspnea No chest pain Constipation Feeling much better today with improved urine output. No acute events overnight Vitals, medications, blood work and imaging reviewed in the chart General: Oriented x3, Cooperative, Mild distress HEENT: Atraumatic Neck: Supple Respiratory: Clear to auscultation bilaterally Cardiovascular: No edema, Regular rate/rhythm Gastrointestinal: Non-distended, No guarding, Tenderness Musculoskeletal: No clubbing, No contractures, Tenderness Integumentary: No rashes, No cyanosis Neurological: Normal speech Laboratory Data (last 24 hrs) 10/06/21 22:58: WBC 15.60 H, Hgb 15.8, Hct 47.7, Plt Count 202 10/06/21 22:58: Sodium 127 L, Potassium 4.7, BUN 50 H, Creatinine 3.71 H, Glucose 432 H*, Total Bilirubin 0.8, AST 15, ALT 33, Alkaline Phosphatase 99, Lipase 181 Conclusions/Impression: ALESSANDRA likely due to hypovolemia and pyelonephritis CKD IV -No NSAIDs -Continue IVF with NS Hyponatremia -Continue IVF with NS Acidosis -Continue oral bicarb HTN with CKD -Continue Coreg -Continue Lisinopril LE Edema -Hold furosemide and potassium at this time DM II with CKD & Hyperglycemia -Continue Lantus -RISS BPH with LUTS? -Continue Flomax BID Acute Pyelonephritis -Continue Rocephin Constipation -Start Colace -Lactulose prn
== END 2021-10-09 14:30 | disposition home or self-care (01) | DRG 690 ==
LOC: ER 16:36 → ERHOLD 10-07 01:37 → 2ND 10-07 17:22
PROVIDERS: ADMIT Internal Medicine; ATTEND Internal Medicine
DX: N10 Acute pyelonephritis (principal); I25.810 Atherosclerosis of coronary artery bypass graft(s) without angina pectoris; E87.1 Hypo-osmolality and hyponatremia; E87.2 Acidosis; I13.0 Hypertensive heart and chronic kidney disease with heart failure and stage 1 through stage 4 chronic kidney disease, or unspecified chronic kidney disease; N18.4 Chronic kidney disease, stage 4 (severe); I50.9 Heart failure, unspecified; E11.22 Type 2 diabetes mellitus with diabetic chronic kidney disease; E11.65 Type 2 diabetes mellitus with hyperglycemia; E03.9 Hypothyroidism, unspecified; G89.29 Other chronic pain; N17.9 Acute kidney failure, unspecified; I95.9 Hypotension, unspecified; F17.210 Nicotine dependence, cigarettes, uncomplicated; K59.00 Constipation, unspecified; M54.9 Dorsalgia, unspecified; N40.0 Benign prostatic hyperplasia without lower urinary tract symptoms; R31.9 Hematuria, unspecified; R63.0 Anorexia; Z95.1 Presence of aortocoronary bypass graft; Z79.4 Long term (current) use of insulin; Z95.5 Presence of coronary angioplasty implant and graft; Z68.31 Body mass index [BMI] 31.0-31.9, adult; Z79.82 Long term (current) use of aspirin; Z79.899 Other long term (current) drug therapy; Z79.02 Long term (current) use of antithrombotics/antiplatelets; Z79.890 Hormone replacement therapy; Z20.822 Contact with and (suspected) exposure to COVID-19
CPT/HCPCS: 36415; 74176; 76377; 80048; 80053; 80061; 80076; 81001; 81015; 82565; 82570; 82947; 83036; 83690; 83735; 83880; 84100; 84156; 84439; 84443; 84550; 85025; 87086; 87088; 99284; J1644; J2270; J2405; J7030; U0003

== ENCOUNTER 2021-10-09 15:35 | Inpatient (IN) | payer OTHER ==
[2021-10-09 17:10] LABS: Hematocrit 42.4 % (39.6-49.0); MPV 8.8 fL (7.6-11.3); RBC Red Blood Cell Count 4.56 M/uL (4.33-5.43)
[2021-10-09 17:11] LABS: Protime INR 0.98
[2021-10-09 17:23] LABS: ALT/SGPT 29 U/L (12-78); AST/SGOT 28 U/L (15-37); Albumin 3.5 g/dL (3.4-5.0); BUN Blood Urea Nitrogen 40 mg/dL (7-18); Bicarbonate 21 mmol/L (21-32); Bilirubin Direct 0.2 mg/dL (0-0.2); Glucose Level 242 mg/dL (74-106); Magnesium 2.2 mg/dL (1.8-2.4); Potassium 4.9 mmol/L (3.5-5.1); Sodium Level 131 mmol/L (136-145)
--- NOTE | 2021-10-09 17:29 | RAD REPORT ---
EXAM DESCRIPTION: RAD - Chest Single View - 10/09/2021 4:56 pm CLINICAL HISTORY: weakness COMPARISON: No comparisons FINDINGS: Lines: None. Lungs: No evidence of edema or pneumonia. Pleural: No significant pleural effusions or pneumothorax. Cardiac: Cardiomegaly. Sternotomy. Bones: No acute fractures. Other: IMPRESSION: No acute cardiopulmonary disease.
[2021-10-09 17:30] LABS: Alkaline Phosphatase 100 U/L (45-117); Bilirubin Total 0.9 mg/dL (0.2-1.0); NT PRO-BNP 2921 pg/mL (<125); Troponin (Emerg Dept Use Only) < 0.02 ng/mL (0.0-0.045)
[2021-10-09] MEDS ORDERED: NA CHLORIDE 0.9% 1,000 ML ONE (17:38)
[2021-10-09] MEDS ORDERED: ENOXAPARIN 100 MG/ML SYR SQ ONE (17:54)
--- NOTE | 2021-10-09 18:24 | EDPHYS ---
Physician Documentation [facility] Name: Paxton Jordan Age: 61 yrs Sex: Male : 1960 Arrival Date: 10/09/2021 Time: 15:39 Bed 23 Private MD: ED Physician Clayton Spears HPI: 10/09 16:25 This 61 yrs old Male presents to ER via Wheelchair with complaints of Leg Swelling. jmm 16:25 The patient presents with pain, that is acute. The complaints affect the right jmm quadriceps, right knee and right albright. Onset: The symptoms/episode began/occurred gradually. Modifying factors: The symptoms are alleviated by nothing. the symptoms are aggravated by nothing. Is a 61-year-old male with history of CAD the presents emerged department with diffuse right leg pain which is exacerbated by standing. Patient was recently hospitalized for acute pyelonephritis and cystitis. He did have some ALESSANDRA which improved with IV fluids. Patient did admit to being without his clopidogrel for over 6 months. Patient has an IVC filter due to multiple pulmonary embolisms.. Historical: - Allergies: 16:18 No Known Allergies; iw - Immunization history:: Adult Immunizations up to date. - Social history:: Smoking status: unknown. ROS: 16:25 Constitutional: Negative for fever, chills, and weight loss, Cardiovascular: Negative jmm for chest pain, palpitations, and edema, Respiratory: Negative for shortness of breath, cough, wheezing, and pleuritic chest pain. 16:25 MS/extremity: Positive for pain. 16:25 All other systems are negative. Exam: 16:25 Constitutional: This is a well developed, well nourished patient who is awake, alert, jmm and in no acute distress. Head/Face: atraumatic. Chest/axilla: Normal chest wall appearance and motion. Cardiovascular: Regular rate and rhythm. No edema appreciated Respiratory: Normal respirations, no respiratory distress appreciated Abdomen/GI: Non distended, soft Back: Normal ROM 16:25 Eyes: EOMI, no conjunctival erythema appreciated ENT: Moist Mucus Membranes Neck: Trachea midline, Supple Skin: General appearance color normal Psych: Behavior is normal, Mood is normal, Patient is cooperative and pleasant 16:25 Musculoskeletal/extremity: Swelling appreciated to the right thigh and right calf, compartments are soft, calf is tender to palpation. 16:25 Skin: Appearance: Color: normal in color. 16:25 Neuro: Orientation: is normal, Mentation: is normal, Memory: is normal. 16:25 Psych: Behavior/mood is pleasant, cooperative. Vital Signs: 16:11 BP 91 / 58; Pulse 69; Resp 16; Temp 97.9(O); Pulse Ox 100% on R/A; Weight 104.33 kg; iw Height 6 ft. 0 in. (182.88 cm); Pain 9/10; 17:07 BP 100 / 65; Pulse 64; Resp 16; Pulse Ox 100% ; mh5 18:02 BP 106 / 68; Pulse 63; Resp 17 S; Pulse Ox 100% on R/A; jd3 20:00 BP 118 / 70; Pulse 61; Resp 18; Pulse Ox 98% on R/A; as6 10/10 00:00 BP 101 / 53; Pulse 65; Resp 26 S; Pulse Ox 98% on R/A; as6 04:00 BP 103 / 73; Pulse 58; Resp 20 S; Pulse Ox 96% on R/A; as6 10/09 16:11 Body Mass Index 31.19 (104.33 kg, 182.88 cm) iw MDM: 10/09 16:25 Patient medically screened. [facility] 18:22 Data reviewed: vital signs, nurses notes. Counseling: I had a detailed discussion with [facility] the patient and/or guardian regarding: the historical points, exam findings, and any diagnostic results supporting the discharge/admit diagnosis, lab results, the need for further work-up and treatment in the hospital. ED course: I discussed the patient with Dr. Mcallister whom accepted the patient for admission. . 10/09 16:37 Order name: Basic Metabolic Panel [facility] 10/09 16:37 Order name: CBC with Diff; Complete Time: 17:23 [facility] 10/09 16:37 Order name: LFT's; Complete Time: 17:31 [facility] 10/09 16:37 Order name: Magnesium; Complete Time: 17:31 [facility] 10/09 16:37 Order name: NT PRO-BNP; Complete Time: 17:31 [facility] 10/09 16:37 Order name: PT-INR; Complete Time: 17:23 [facility] 10/09 16:37 Order name: Troponin (emerg Dept Use Only); Complete Time: 17:31 [facility] 10/09 16:38 Order name: Basic Metabolic Panel; Complete Time: 17:31 EDMS 10/09 19:27 Order name: COVID-19 SARS RT PCR (Document "Date of Onset" if Symptomatic) 2 10/10 02:45 Order name: Glucose, Ancillary Testing EDMS 10/10 04:00 Order name: CBC with Automated Diff EDMS 10/10 04:16 Order name: Comprehensive Metabolic Panel EDMS 10/10 04:16 Order name: Phosphorus EDMS 10/10 04:16 Order name: Magnesium EDMS 10/09 16:37 Order name: US Extremity Venous W Compression Guilherme; Complete Time: 18:50 m 10/09 16:37 Order name: XRAY Chest (1 view); Complete Time: 17:31 [facility] 10/09 16:37 Order name: EKG; Complete Time: 16:38 [facility] 10/09 16:37 Order name: Cardiac monitoring; Complete Time: 16:42 [facility] 10/09 16:37 Order name: EKG - Nurse/Tech; Complete Time: 16:50 [facility] 10/09 16:37 Order name: IV Saline Lock; Complete Time: 16:42 [facility] 10/09 16:37 Order name: Labs collected and sent; Complete Time: 16:42 [facility] 10/10 07:48 Order name: Glucose, Ancillary Testing EDDE 10/10 11:10 Order name: Glucose, Ancillary Testing EDDE 10/10 15:59 Order name: Glucose, Ancillary Testing EDMS 10/09 16:37 Order name: O2 Per Protocol; Complete Time: 16:43 [facility] 10/09 16:37 Order name: O2 Sat Monitoring; Complete Time: 16:43 jmm Administered Medications: 17:52 Drug: NS 0.9% 1000 ml Route: IV; Rate: 1 bolus; Site: right hand; jd3 19:06 Follow up: Response: No adverse reaction; IV Status: Completed infusion jd3 18:01 Drug: Lovenox (enoxaparin) 1 mg/kg Route: Sub-Q; Site: abdomen; jd3 19:00 Follow up: Response: No adverse reaction jd3 19:40 Drug: Magnesium Citrate Liquid 300 ml Route: PO; as6 19:40 Drug: morphine 2 mg Route: IVP; Site: right hand; as6 21:18 Drug: morphine 2 mg Route: IVP; Site: right hand; as6 Disposition: 18:59 Co-signature as Attending Physician, Clayton Spears MD I agree with the assessment and kdr plan of care. Disposition Summary: 10/09/21 18:23 Hospitalization Ordered Hospitalization Status: Inpatient Admission [facility] Provider: Nicko Mcallister Condition: Stable [facility] Problem: an acute exacerbation jm Symptoms: have improved [facility] Bed/Room Type: Standard [facility] Location: Telemetry/MedSurg (Inpatient)(10/10/21 14:02) bd Room Assignment: 207(10/10/21 14:02) bd Diagnosis - Acute embolism and thrombosis of deep veins of lower extremity [facility] Discharge Instructions: - Discharge Summary Sheet jd3 - Pyelonephritis, Adult jd3 - Pyelonephritis, Adult, Unav-no-Mcpq jd3 Forms: - Medication Reconciliation Form jmm - SBAR form jm Signatures: Dispatcher [employer] EDMS Ivelisse Corrales Martha RN Clayton Garcia MD MD kdr Mickail, Joel, PA PA Noemy Garcia, RN Geovani Gomez RN RN Rob Fontanez PA PA ej Slawson, Ashby, RN RN as6 Corrections: (The following items were deleted from the chart) 16:39 16:23 Extremity Venous Uni Ltd+US.RAD.BRZ ordered. EDMS EDMS 18:41 16:36 Lower Extremity Arterial Bilat+US.RAD.BRZ ordered. EDDE EDMS 21:52 18:23 Telemetry/MedSurg (Inpatient) [facility] mw 21:52 18:23 [facility] mw 10/10 14:02 10/09 21:52 [facility] ER HOLD mw bd 10/10 14:02 01 21:52 ERHOLD- mw bd
--- NOTE | 2021-10-09 18:24 | ER ---
Nurse's Notes [facility] Name: Paxton Jordan Age: 61 yrs Sex: Male : 1960 Arrival Date: 10/09/2021 Time: 15:39 Bed 23 [facility] MD: Diagnosis: Acute embolism and thrombosis of deep veins of lower extremity Presentation: 10/09 16:11 Chief complaint: Patient states: SEVER PAIN IN UPPER RIGHT LEG AND RIGHT CALF, ENTIRE iw LEFT LEG WEAK AND SORE SINCE SUNDAY. DISCHARGED FROM 2ND FLOOR 2 HOURS AGO FOR KIDNEY, BLADDER AND PROSTATE INFECTION. Coronavirus screen: Vaccine status: Patient reports receiving the 2nd dose of the covid vaccine. Ebola Screen: No symptoms or risks identified at this time. Initial Sepsis Screen: Does the patient meet any 2 criteria? No. Patient's initial sepsis screen is negative. Does the patient have a suspected source of infection? No. Patient's initial sepsis screen is negative. Risk Assessment: Do you want to hurt yourself or someone else? Patient reports no desire to harm self or others. Onset of symptoms was October 06, 2021. 16:11 Method Of Arrival: Wheelchair iw 16:11 Acuity: MITESH 2 iw Triage Assessment: 16:21 General: Appears uncomfortable, Behavior is cooperative, restless. Pain: Complains of iw pain in right leg and left leg. Historical: - Allergies: 16:18 No Known Allergies; iw - Immunization history:: Adult Immunizations up to date. - Social history:: Smoking status: unknown. Screenin:13 Abuse screen: Denies threats or abuse. Nutritional screening: No deficits noted. jd3 Tuberculosis screening: No symptoms or risk factors identified. Fall Risk Ambulatory Aid- None/Bed Rest/Nurse Assist (0 pts). Gait- Normal/Bed Rest/Wheelchair (0 pts) Mental Status- Oriented to own ability (0 pts). Total Wolfe Fall Scale indicates No Risk (0-24 pts). Assessment: 17:08 General: Appears in no apparent distress. uncomfortable, Behavior is calm, cooperative, jd3 appropriate for age. Pain: Complains of pain in right lower leg Quality of pain is described as sharp, tender. Neuro: Level of Consciousness is awake, alert, obeys commands, Oriented to person, place, time, situation. Cardiovascular: Denies chest pain, Heart tones present Capillary refill < 3 seconds Patient's skin is warm and dry. Respiratory: Reports shortness of breath on exertion pt reports feeling short of breath when getting from wheelchair to ER exam bed Airway is patent Respiratory effort is even, unlabored, Respiratory pattern is regular, symmetrical, Breath sounds are clear bilaterally. GI: No signs and/or symptoms were reported involving the gastrointestinal system. : No signs and/or symptoms were reported regarding the genitourinary system. EENT: No signs and/or symptoms were reported regarding the EENT system. Derm: Skin is intact, Skin is dry, Skin is normal, Skin temperature is warm. Musculoskeletal: Circulation, motion, and sensation intact. Swelling present in right leg. 18:02 Reassessment: Patient appears in no apparent distress at this time. No changes from jd3 previously documented assessment. Patient and/or family updated on plan of care and expected duration. Pain level reassessed. Patient is alert, oriented x 3, equal unlabored respirations, skin warm/dry/pink. 20:30 Pain: Complains of pain in right leg and left leg. Cardiovascular: Edema is 3+ to right as6 leg. Cardiovascular: Edema is 2+ to left leg. Vital Signs: 16:11 BP 91 / 58; Pulse 69; Resp 16; Temp 97.9(O); Pulse Ox 100% on R/A; Weight 104.33 kg; iw Height 6 ft. 0 in. (182.88 cm); Pain 9/10; 17:07 BP 100 / 65; Pulse 64; Resp 16; Pulse Ox 100% ; mh5 18:02 BP 106 / 68; Pulse 63; Resp 17 S; Pulse Ox 100% on R/A; jd3 20:00 BP 118 / 70; Pulse 61; Resp 18; Pulse Ox 98% on R/A; as6 10/10 00:00 BP 101 / 53; Pulse 65; Resp 26 S; Pulse Ox 98% on R/A; as6 04:00 BP 103 / 73; Pulse 58; Resp 20 S; Pulse Ox 96% on R/A; as6 10/09 16:11 Body Mass Index 31.19 (104.33 kg, 182.88 cm) iw ED Course: 10/09 15:39 Patient arrived in ED. mr 16:15 Rojelio Leonard PA is PHCP. jmm 16:15 Clayton Spears MD is Attending Physician. jmm 16:18 Triage completed. iw 16:42 Geovani Funez, RN is Primary Nurse. jd3 16:47 Patient has correct armband on for positive identification. Bed in low position. Call mh5 light in reach. Side rails up X2. Warm blanket given. monitor technician on. Pulse ox on. NIBP on. 16:49 EKG done, by ED staff, reviewed by Clayton Spears MD. mh5 16:56 XRAY Chest (1 view) In Process Unspecified. EDMS 17:06 Basic Metabolic Panel Sent. mh5 17:06 CBC with Diff Sent. mh5 17:06 LFT's Sent. mh5 17:06 Magnesium Sent. mh5 17:06 NT PRO-BNP Sent. mh5 17:06 PT-INR Sent. mh5 17:06 Troponin (emerg Dept Use Only) Sent. mh5 17:07 Basic Metabolic Panel Sent. mh5 17:07 Initial lab(s) drawn, by ED staff, sent to lab. mh5 17:13 Arm band placed on. jd3 18:10 US Extremity Venous W Compression Guilherme In Process Unspecified. EDMS 18:23 Nicko Mcallister is Hospitalizing Provider. [facility] 19:12 Primary Nurse role handed off by Geovani Funez, HAO eb 19:34 Johnny Wright, HAO is Primary Nurse. as6 Administered Medications: 17:52 Drug: NS 0.9% 1000 ml Route: IV; Rate: 1 bolus; Site: right hand; jd3 19:06 Follow up: Response: No adverse reaction; IV Status: Completed infusion jd3 18:01 Drug: Lovenox (enoxaparin) 1 mg/kg Route: Sub-Q; Site: abdomen; jd3 19:00 Follow up: Response: No adverse reaction jd3 19:40 Drug: Magnesium Citrate Liquid 300 ml Route: PO; as6 19:40 Drug: morphine 2 mg Route: IVP; Site: right hand; as6 21:18 Drug: morphine 2 mg Route: IVP; Site: right hand; as6 Outcome: 18:23 Decision to Hospitalize by Provider. [facility] 10/10 16:23 Patient left the ED. iw Signatures: Dispatcher [employer] EDMS MicRojelio gallo PA PA jmm Rivera, Dacia mr Lawrence, Noemy, RN RN Miya Freeman 5 Geovani Funez, RN RN jd3 Anna Marie Oro Ashby, RN RN as6
--- NOTE | 2021-10-09 18:50 | RAD REPORT ---
EXAM DESCRIPTION: US - Extrem Venous W Compress Guilherme - 10/09/2021 6:10 pm CLINICAL HISTORY: lower extremity pain COMPARISON: No comparisons FINDINGS: Color Doppler, grayscale, and spectral analysis was performed. Incomplete compressibility of the right common femoral vein, greater saphenous vein, femoral vein, po pliteal vein consistent with the presence of occlusive thrombus. Partial compressibility of the poste rior tibial vein consistent with nonocclusive thrombus. The left common femoral vein, greater saphenous vein, femoral vein are partially compressible consist ent with nonocclusive thrombus. The popliteal vein and posterior tibial veins are compressible. IMPRESSION: Positive for bilateral deep venous thrombosis, right greater than left.
--- NOTE | 2021-10-09 19:35 | P.HP ---
Certification for Inpatient Patient admitted to: Inpatient With expected LOS: <2 Midnights Patient will require the following post-hospital care: None Practitioner: I am a practitioner with admitting privileges, knowledge of patient current condition, hospital course, and medical plan of care. Services: Services provided to patient in accordance with Admission requirements found in Title 42 Section 412.3 of the Code of Federal Regulations Patient History Date of Service: 10/09/21 Reason for admission: bilateral LE DVT History of Present Illness: Mr. Jordan is a 61 yo M with CAD, CKD, DM who was recently discharged from the hospital after treatment of UTI and ALESSANDRA who presents for bilateral pain in his legs. He says when he got home it was too painful for him to walk. He reports tightness is worse in the right leg than the left. He has had multiple PEs in his right lung in the past. He was previously on warfarin but was switched to plavix by a acidity tester last December. He has been out of Plavix since March since he was changing insurances and moving states. He has an IVC filter in place. He also reports his last BM was . He has been feeling increasingly bloated, and feels too bloated to eat. Reports improvement with magnesium citrate in the past. WBC 11.7 Na 131 BUN 40 Cr 1.91 GFR 36 Glu 242 BNP 2921 VENOUS DOPPLER IMPRESSION: Positive for bilateral deep venous thrombosis, right greater than left. Allergies No Known Allergies Allergy (Unverified 10/07/21 03:29) Home Medications: Aspirin [Aspirin EC 81 MG] 81 mg PO DAILY 10/07/21 Calcium Carbonate [Tums Ultra Strength] 1,177 mg PO TID PRN 10/07/21 Citalopram [Celexa*] 40 mg PO DAILY 10/07/21 Cyclobenzaprine [Flexeril*] 10 mg PO TID PRN 10/07/21 Esomeprazole Magnesium [Nexium 24Hr] 20 mg PO DAILY 10/07/21 Fish Oil/Dha/Epa [Fish Oil 1,200 mg Fish Oil] 2,400 mg PO DAILY 10/07/21 Insulin Glargine,Hum.rec.anlog [Amber Lr] 20 unit SQ DAILY 10/07/21 Levothyroxine [Synthroid*] 50 mcg PO [id number] 10/07/21 Lisinopril [Zestril] 10 mg PO DAILY 10/07/21 Nitroglycerin 0.4 mg SL SEECOM PRN 10/07/21 Quetiapine [Seroquel*] 150 mg PO DAILY 10/07/21 Simvastatin 80 mg PO BEDTIME 10/07/21 Testost Cypionate [Depo-Testosterone*] 0.5 ml IM SEECOM 10/07/21 Vardenafil HCl [Levitra] 20 mg PO DAILY 10/07/21 Bupropion *Xl* [Wellbutrin XL*] 300 mg PO DAILY #30 tab 10/09/21 Carvedilol [Coreg] 12.5 mg PO BID #60 10/09/21 Clopidogrel Bisulfate [Plavix*] 75 mg PO DAILY #30 10/09/21 Docusate [Colace Cap*] 100 mg PO BID #60 cap 10/09/21 Insulin NPH Hum/Reg Insulin Hm [Novolin 70-30 100 Unit/ml Vial] 50 unit SQ BID #30 ml 10/09/21 Lactobacillus Acidophilus [Acidophilus] 1 each PO TID #30 tablet 10/09/21 Magnesium Citrate [Citroma*] 300 ml PO ONCE #1 btl 10/09/21 Oxycodone HCl/Acetaminophen [Percocet 5/325 Tab*] 1 tab PO Q6H PRN #20 tab 10/09/21 Tamsulosin [Flomax*] 0.4 mg PO BID #60 cap 10/09/21 levoFLOXacin [Levaquin] 750 mg PO DAILY #8 tab 10/09/21 - Past Medical/Surgical History -: DM -: CAD -: hypothyroidism -: CKD 4 -: chronic back pain -: 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 moist/pink, EOMI, Sclerae nonicteric Neck: Supple, 2+ carotid pulse no bruit, No LAD, Without JVD or thyroid abnormality Respiratory: Clear to auscultation bilaterally, Normal air movement Cardiovascular: Regular rate/rhythm, Normal S1 S2 Gastrointestinal: Normal bowel sounds, No tenderness Musculoskeletal: Tenderness Integumentary: No rashes Neurological: Normal speech, Normal strength at 5/5 x4 extr, Normal tone, Normal affect Lymphatics: No axilla or inguinal lymphadenopathy - Studies Laboratory Data (last 24 hrs) 10/09/21 16:55: PT 11.3, INR 0.98 10/09/21 16:55: WBC 11.70 H D, Hgb 14.2, Hct 42.4, Plt Count 156 10/09/21 16:55: Sodium 131 L, Potassium 4.9, BUN 40 H, Creatinine 1.91 H, Gluc ose 242 H, Magnesium 2.2, Total Bilirubin 0.9, AST 28, ALT 29, Alkaline Phosphatase 100 Assessment and Plan - Problems (Diagnosis) (1) Constipation Current Visit: Yes Status: Acute Qualifiers: Constipation type: unspecified constipation type Qualified Code(s): K59.00 - Constipation, unspecified (2) DVT, bilateral lower limbs Current Visit: Yes Status: Acute Qualifiers: Affected thrombotic vein of extremity: unspecified vein of extremity Chronicity: acute Qualified Code(s): I82.403 - Acute embolism and thrombosis of unspecified deep veins of lower extremity, bilateral (3) BPH (benign prostatic hyperplasia) Current Visit: No Status: Chronic Qualifiers: Lower urinary tract symptom presence: unspecified whether lower urinary tract symptoms present Qualified Code(s): N40.0 - Benign prostatic hyperplasia without lower urinary tract symptoms (4) CAD (coronary artery disease) Current Visit: No Status: Chronic Qualifiers: Coronary Disease-Associated Artery/Lesion type: bypass graft [place] vs. 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 Diabetes mellitus complication status: with kidney complications Diabetes mellitus complication detail: with chronic kidney disease Chronic kidney disease stage 3 subtype: stage 3b (GFR 30-44) - Plan continue full dose lovenox BID continue IV fluid hydration, IV ceftriaxone pain management as needed continue laxatives until bowel movement sliding scale insulin and accuchecks reconcile and continue home medications Discharge Plan: Home Plan to discharge in: 48 Hours - Advance Directives Does patient have a Living Will: No Does patient have a Durable POA for Healthcare: No - Code Status/Comfort Care Code Status Assessed: Yes (full code ) Critical Care: No Time Spent Managing Pts Care (In Minutes): 70
[2021-10-09] MEDS ORDERED: MAGNESIUM CITRATE 300 ML BOT ONE (19:41)
[2021-10-09] MEDS ORDERED: MORPHINE 2 MG/ML SYR ONE ×2 (19:41→21:13)
[2021-10-10] MEDS: INSULIN 70/30 100 UNITS/ML SQ SCH ×3 (00:47→20:54)
[2021-10-10] MEDS: NA CHLORIDE 0.9% 1,000 ML IV SCH ×2 (00:47→14:07)
[2021-10-10] MEDS ORDERED: NITROGLYCERIN 0.4 MG/TAB SL PRN (00:47)
[2021-10-10] MEDS ORDERED: ACETAMINOPHEN 500 MG TAB PO PRN (00:47)
[2021-10-10] MEDS ORDERED: GLUCAGON 1 MG/VIAL IM PRN (00:47)
[2021-10-10] MEDS: DOCUSATE NA 100 MG CAP PO SCH ×3 (00:47→20:47)
[2021-10-10] MEDS ORDERED: D50W 25 GM/50 ML SYRINGE IV PRN (00:47)
[2021-10-10] MEDS: INSULIN -REGULAR HUMAN 50 UNIT/0.5 ML ML SQ SCH ×5 (00:47→20:53)
[2021-10-10] MEDS ORDERED: ONDANSETRON 4 MG/2 ML VIAL IV PRN (00:47)
[2021-10-10] MEDS: TAMSULOSIN 0.4 MG SR CAP PO SCH ×3 (00:47→20:48)
[2021-10-10] MEDS ORDERED: CALCIUM CARBONATE 500 MG TAB PO PRN (00:56)
[2021-10-10] MEDS ORDERED: TAMSULOSIN 0.4 MG SR CAP ONE ×2 (02:43→08:44)
[2021-10-10] MEDS ORDERED: INSULIN -REGULAR HUMAN 50 UNIT/0.5 ML ML ONE ×2 (02:44→08:36)
[2021-10-10] MEDS ORDERED: NA CHLORIDE 0.9% 1,000 ML ONE ×2 (02:44→15:33)
[2021-10-10] MEDS ORDERED: DOCUSATE NA 100 MG CAP PO ONE (02:46)
[2021-10-10 03:50] LABS: Hematocrit 38.7 % (39.6-49.0); Lymphocytes % 27.1 % (15.3-44.8); MPV 8.7 fL (7.6-11.3); RBC Red Blood Cell Count 4.16 M/uL (4.33-5.43)
[2021-10-10 04:10] LABS: Albumin 3.2 g/dL (3.4-5.0); Bilirubin Total 0.7 mg/dL (0.2-1.0); Magnesium 2.7 mg/dL (1.8-2.4); Phosphorus 2.6 mg/dL (2.5-4.9); Potassium 4.4 mmol/L (3.5-5.1); Protein, Total 7.3 g/dL (6.4-8.2)
[2021-10-10 04:22] VITALS: BMI 31.1
[2021-10-10] MEDS ORDERED: ENOXAPARIN 100 MG/ML SYR SQ SCH (06:00)
[2021-10-10] MEDS: LEVOTHYROXINE SOD 0.05 MG TABLET PO SCH ×2 (06:00→10:00)
[2021-10-10] MEDS ORDERED: PANTOPRAZOLE 40MG TABLET PO SCH ×2 (06:30→18:00)
[2021-10-10] MEDS ORDERED: INSULIN GLARGINE 100 UNIT/ML SQ ONE (08:36)
[2021-10-10] MEDS ORDERED: PANTOPRAZOLE 40MG TABLET PO ONE (08:43)
[2021-10-10] MEDS ORDERED: ASPIRIN EC 81 MG TAB PO ONE (08:43)
[2021-10-10] MEDS ORDERED: carvediloL 6.25 MG TAB ONE (08:43)
[2021-10-10] MEDS ORDERED: ENOXAPARIN 100 MG/ML SYR SQ ONE (08:44)
[2021-10-10] MEDS ORDERED: CLOPIDOGREL 75 MG TABLET ONE (08:44)
[2021-10-10] MEDS ORDERED: CEFTRIAXONE 1000 MG/VIAL ONE (08:44)
[2021-10-10] MEDS ORDERED: lisinopriL 10 MG TAB ONE (08:44)
[2021-10-10] MEDS ORDERED: NA CHLORIDE 0.9% 50 ML ONE (08:44)
[2021-10-10] MEDS ORDERED: MORPHINE 2 MG/ML SYR ONE (08:52)
[2021-10-10] MEDS: MORPHINE 2 MG/ML SYR IV PRN (08:55)
[2021-10-10] MEDS: ENOXAPARIN 100 MG/ML SYR SQ SCH ×2 (08:56→17:17)
[2021-10-10] MEDS: carvediloL 12.5 MG TAB PO SCH ×2 (08:57→20:49)
[2021-10-10] MEDS: CLOPIDOGREL 75 MG TABLET PO SCH (08:58)
[2021-10-10] MEDS: lisinopriL 10 MG TAB PO SCH (08:58)
[2021-10-10] MEDS: ASPIRIN EC 81 MG TAB PO SCH (08:59)
[2021-10-10] MEDS ORDERED: QUETIAPINE 100MG TAB PO SCH (09:00)
[2021-10-10] MEDS: INSULIN GLARGINE 100 UNIT/ML SQ SCH (09:00)
[2021-10-10] MEDS: VARDENAFIL HCL 20 MG PO SCH (09:00)
[2021-10-10] MEDS: LACTOBACILLUS/ACIDOPHILUS TAB PO SCH ×3 (09:00→20:47)
[2021-10-10] MEDS: CEFTRIAXONE 1,000 MG in NA CHLORIDE 0.9% 50 ML IVPB SCH (09:00)
[2021-10-10] MEDS: BUPROPION HCL XL 150 MG TAB PO SCH (09:26)
[2021-10-10] MEDS: DOCOSAHEXANOIC AC/EPA 1000 MG PO SCH (09:27)
[2021-10-10] MEDS: CITALOPRAM 10 MG TABLET PO SCH (09:27)
[2021-10-10] MEDS ORDERED: INSULIN 70/30 100 UNITS/ML SQ ONE (11:48)
--- NOTE | 2021-10-10 14:36 | P.PN ---
Subjective Date of Service: 10/10/21 Chief Complaint: bilateral LE DVT Patient has no new complaint. No recorded fever. He denies shortness of breath. Physical Examination - Vital Signs Temperature: 98.3 F Blood Pressure: 104/64 Pulse: 62 Respirations: 16 Pulse Ox (%): 95 - Physical Exam General: Alert, In no apparent distress, Oriented x3 HEENT: Mucous membr. moist/pink, Sclerae nonicteric Neck: Supple, JVD not distended Respiratory: Clear to auscultation bilaterally, Normal air movement Cardiovascular: No edema, Regular rate/rhythm, Normal S1 S2, No murmurs Gastrointestinal: Normal bowel sounds, Soft and benign, Non-distended, No tenderness Musculoskeletal: No erythema, Swelling (Right calf) Integumentary: No rashes, No cyanosis Neurological: Normal speech, Normal strength at 5/5 x4 extr, Cranial nerves 3-12 intact - Studies Laboratory Data (last 24 hrs) 10/09/21 16:55: PT 11.3, INR 0.98 10/09/21 16:55: WBC 11.70 H D, Hgb 14.2, Hct 42.4, Plt Count 156 10/09/21 16:55: Sodium 131 L, Potassium 4.9, BUN 40 H, Creatinine 1.91 H, Glucose 242 H, Magnesium 2.2, Total Bilirubin 0.9, AST 28, ALT 29, Alkaline Phosphatase 100 Assessment And Plan - Current Problems (Diagnosis) (1) Chronic kidney disease, stage III (moderate) Current Visit: Yes Status: Acute (2) DVT, bilateral lower limbs Current Visit: Yes Status: Acute Qualifiers: Affected thrombotic vein of extremity: unspecified vein of extremity Chronicity: acute Qualified Code(s): I82.403 - Acute embolism and thrombosis of unspecified deep veins of lower extremity, bilateral (3) Pyelonephritis Current Visit: No Status: Acute (4) BPH (benign prostatic hyperplasia) Current Visit: No Status: Chronic Qualifiers: Lower urinary tract symptom presence: unspecified whether lower urinary tract symptoms present Qualified Code(s): N40.0 - Benign prostatic hyperplasia without lower urinary tract symptoms (5) Chronic pain Current Visit: No Status: Chronic Qualifiers: (6) Hypothyroid Current Visit: No Status: Chronic Qualifiers: (7) T2DM (type 2 diabetes mellitus) Current Visit: No Status: Chronic Qualifiers: Diabetes mellitus alf insulin use: with alf use Diabetes mellitus complication status: with kidney complications Diabetes mellitus complication detail: with chronic kidney disease Chronic kidney disease stage 3 subtype: stage 3b (GFR 30-44) - Plan Continue IV Rocephin for history of recent pyelonephritis. Patient started on full dose Lovenox for lower extremity DVT. He has a history of pulmonary embolism and DVT, status post IVC filter. Patient stated he has been noncompliant with anticoagulation-warfarin for a couple of years now. 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 Blood pressure appears to be soft. Obtain echocardiogram. CTA thorax once his creatinine falls below 1.4. Continue home dose of opioid for chronic pain. Continue Flomax for BPH. Insulin sliding scale for glucose management. Home dose Lantus insulin and Novolin 70/30 resumed. Monitor CBC and blood chemistry.
[2021-10-10] MEDS: Oxycodone HCl/Acetaminophen 1 TAB TAB PO PRN (17:17)
[2021-10-10 17:57] LABS: Urine Appearance CLEAR (Clear); Urine Bilirubin NEGATIVE (Negative); Urine Blood TRACE (Negative); Urine Color DK YELLOW (Yellow); Urine Glucose 2+ (Negative); Urine Protein NEGATIVE (Negative); Urine Urobilinogen 0.2 mg/dL (0.2-1.0); Urine pH 5.5 (5.0-7.0)
[2021-10-10 18:06] LABS: Urine Microscopic Reflex ORDER UMIC
[2021-10-10 18:08] LABS: Urine Bacteria <20 /HPF (NONE SEEN); Urine Mucus 1+ /HPF (NONE SEEN); Urine RBC <5 /HPF (NONE SEEN)
[2021-10-10] MEDS: QUETIAPINE 100MG TAB PO SCH (20:48)
[2021-10-10] MEDS: ATORVASTATIN 40 MG TAB PO SCH (20:52)
[2021-10-11] MEDS: D5 0.9 NS 1,000 ML IV SCH ×5 (02:23→07:04)
[2021-10-11] MEDS: NA CHLORIDE 0.9% 1,000 ML IV SCH ×2 (04:33→16:36)
--- NOTE | 2021-10-11 05:59 | P.PN ---
Date of Service: 10/11/21 Subjective: Reports slight improvement have right lower extremity pain and swelling Still significant pain, unable to ambulate No shortness of breath, no chest pain Otherwise feeling slightly better ROS: 10 point ROS as noted above, otherwise negative Physical exam GEN: Alert, oriented, NAD HEENT: Normal conjunctiva, sclera anicteric CV: Regular rate and rhythm, R> L lower extremity edema, 2+ on RLE up to thigh Pulm: Non-labored respirations on room air ABD: Soft, nontender, nondistended Integumentary: No rashes Neuro: Normal speech, normal a Problem list Acute bilateral lower extremity DVT Recent pyelonephritis BPH Chronic pain Type 2 diabetes mellitus, with chronic neuropathy CKD 3 Hypothyroid Hypertension Continue IV Rocephin for history of recent pyelonephritis. Patient started on full dose Lovenox for lower extremity DVT. h/o PE and DVTs in past, s/p IVC filter was on warfarin for years, switched to ASA + plavix 12/2020, ran out of plavix ~2-3 months later, due to insurance issues/ recent move out of state will need to check cost of eliquis or xarelto. If too expensive, will need to restart coumadin Blood pressure appears to be soft. echo ordered Continue home dose of opioid for chronic pain. Continue Flomax for BPH. Insulin sliding scale for glucose management. Home dose Lantus insulin and Novolin 70/30 resumed. PT consulted Dispo: anticipate dc home in 1-2 days. once ambulating / able to transfer Time Spent Managing Pts Care (In Minutes): 35
[2021-10-11 06:02] LABS: Absolute Lymphocytes (CBC) 2.3 K/uL (0.7-4.9); Hematocrit 35.4 % (39.6-49.0); MPV 8.1 fL (7.6-11.3); RBC Red Blood Cell Count 3.77 M/uL (4.33-5.43)
[2021-10-11 06:12] LABS: Potassium 4.4 mmol/L (3.5-5.1)
[2021-10-11] MEDS: ENOXAPARIN 100 MG/ML SYR SQ SCH ×2 (06:37→17:14)
[2021-10-11] MEDS: LEVOTHYROXINE SOD 0.05 MG TABLET PO SCH (06:37)
[2021-10-11] MEDS: Oxycodone HCl/Acetaminophen 1 TAB TAB PO PRN ×2 (07:10→20:55)
[2021-10-11] MEDS: INSULIN -REGULAR HUMAN 50 UNIT/0.5 ML ML SQ SCH ×4 (07:30→21:01)
[2021-10-11] MEDS: VARDENAFIL HCL 20 MG PO SCH (08:57)
[2021-10-11] MEDS: INSULIN GLARGINE 100 UNIT/ML SQ SCH (09:00)
[2021-10-11] MEDS: lisinopriL 10 MG TAB PO SCH ×2 (09:00→20:59)
[2021-10-11] MEDS: BUPROPION HCL XL 150 MG TAB PO SCH (09:01)
[2021-10-11] MEDS: ASPIRIN EC 81 MG TAB PO SCH (09:01)
[2021-10-11] MEDS: CITALOPRAM 10 MG TABLET PO SCH (09:01)
[2021-10-11] MEDS: DOCOSAHEXANOIC AC/EPA 1000 MG PO SCH (09:01)
[2021-10-11] MEDS: TAMSULOSIN 0.4 MG SR CAP PO SCH ×2 (09:02→20:57)
[2021-10-11] MEDS: LACTOBACILLUS/ACIDOPHILUS TAB PO SCH ×3 (09:02→20:56)
[2021-10-11] MEDS: PANTOPRAZOLE 40MG TABLET PO SCH (09:02)
[2021-10-11] MEDS: DOCUSATE NA 100 MG CAP PO SCH ×2 (09:02→21:00)
[2021-10-11] MEDS: CLOPIDOGREL 75 MG TABLET PO SCH (09:02)
[2021-10-11] MEDS: carvediloL 12.5 MG TAB PO SCH ×2 (09:03→21:00)
[2021-10-11] MEDS: CEFTRIAXONE 1,000 MG in NA CHLORIDE 0.9% 50 ML IVPB SCH (09:07)
[2021-10-11] MEDS: INSULIN 70/30 100 UNITS/ML SQ SCH ×2 (09:07→21:02)
[2021-10-11] MEDS: FUROSEMIDE 40 MG TABLET PO SCH (11:38)
[2021-10-11] MEDS: MORPHINE 2 MG/ML SYR IV PRN (16:36)
[2021-10-11] MEDS: ATORVASTATIN 40 MG TAB PO SCH (20:57)
[2021-10-11] MEDS: QUETIAPINE 100MG TAB PO SCH (20:57)
[2021-10-11] MEDS ORDERED: BISACODYL 10 MG RECTAL SUPP PR ONE (23:38)
[2021-10-12] MEDS: LEVOTHYROXINE SOD 0.05 MG TABLET PO SCH (05:20)
[2021-10-12] MEDS: ENOXAPARIN 100 MG/ML SYR SQ SCH ×2 (05:20→17:07)
[2021-10-12] MEDS: NA CHLORIDE 0.9% 1,000 ML IV SCH ×2 (05:22→06:16)
--- NOTE | 2021-10-12 05:51 | P.PN ---
Date of Service: 10/12/21 Subjective: refused PT yesterday due to lower extremity pain Reports improvement in his pain slightly Reports constipation, no bowel movement in 8 days ROS: 10 point ROS as noted above, otherwise negative Physical exam GEN: Alert, oriented, NAD HEENT: Normal conjunctiva, sclera anicteric CV: Regular rate and rhythm, R> L lower extremity edema, 1+ on RLE up to thigh Pulm: Non-labored respirations on room air ABD: Soft, nontender, nondistended Integumentary: No rashes Neuro: Normal speech, normal affect Problem list Acute bilateral lower extremity DVT (R>L) Recent pyelonephritis BPH Chronic pain Type 2 diabetes mellitus, with chronic neuropathy CKD 3 Hypothyroid Hypertension Continue IV Rocephin for pyelonephritis. Patient started on full dose Lovenox for lower extremity DVT. h/o PE and DVTs in past, s/p IVC filter was on warfarin for years, switched to ASA + plavix 12/2020, ran out of plavix ~2-3 months later, due to insurance issues/ recent move out of state will need to check cost of eliquis or xarelto. If too expensive, will need to restart coumadin echo ordered - patient refused Continue home dose of opioid for chronic pain. Continue Flomax for BPH. Insulin sliding scale for glucose management. Home dose Lantus insulin and Novolin 70/30 resumed. PT consulted Dispo: anticipate dc home in ~1-2 days. once ambulating / able to transfer Time Spent Managing Pts Care (In Minutes): 35
[2021-10-12 06:42] LABS: Potassium 4.2 mmol/L (3.5-5.1)
[2021-10-12] MEDS: INSULIN -REGULAR HUMAN 50 UNIT/0.5 ML ML SQ SCH ×4 (07:30→20:12)
[2021-10-12] MEDS: PANTOPRAZOLE 40MG TABLET PO SCH (08:50)
[2021-10-12] MEDS: INSULIN GLARGINE 100 UNIT/ML SQ SCH (09:00)
[2021-10-12] MEDS: carvediloL 12.5 MG TAB PO SCH ×2 (09:00→20:45)
[2021-10-12] MEDS: VARDENAFIL HCL 20 MG PO SCH (09:00)
[2021-10-12] MEDS: INSULIN 70/30 100 UNITS/ML SQ SCH ×2 (09:00→20:45)
[2021-10-12] MEDS ORDERED: CEFTRIAXONE 1000 MG/VIAL ONE (09:48)
[2021-10-12] MEDS: CITALOPRAM 10 MG TABLET PO SCH (10:00)
[2021-10-12] MEDS: CEFTRIAXONE 1,000 MG in NA CHLORIDE 0.9% 50 ML IVPB SCH (10:00)
[2021-10-12] MEDS: BUPROPION HCL XL 150 MG TAB PO SCH (10:00)
[2021-10-12] MEDS: DOCOSAHEXANOIC AC/EPA 1000 MG PO SCH (10:00)
[2021-10-12] MEDS: FUROSEMIDE 40 MG TABLET PO SCH (10:00)
[2021-10-12] MEDS ORDERED: BISACODYL 10 MG RECTAL SUPP PR ONE (10:00)
[2021-10-12] MEDS: TAMSULOSIN 0.4 MG SR CAP PO SCH ×2 (10:00→20:47)
[2021-10-12] MEDS: LACTOBACILLUS/ACIDOPHILUS TAB PO SCH ×3 (10:00→20:47)
[2021-10-12] MEDS: DOCUSATE NA 100 MG CAP PO SCH ×2 (10:00→20:46)
[2021-10-12] MEDS: Oxycodone HCl/Acetaminophen 1 TAB TAB PO PRN (17:09)
[2021-10-12] MEDS: RIVAROXABAN 15 MG TABLET PO SCH (17:45)
[2021-10-12] MEDS: ATORVASTATIN 40 MG TAB PO SCH (20:45)
[2021-10-12] MEDS: QUETIAPINE 100MG TAB PO SCH (20:46)
[2021-10-12] MEDS: ASPIRIN EC 81 MG TAB PO SCH (20:46)
[2021-10-12] MEDS: lisinopriL 10 MG TAB PO SCH (20:47)
[2021-10-13 04:48] LABS: Absolute Lymphocytes (CBC) 2.7 K/uL (0.7-4.9); Hematocrit 33.1 % (39.6-49.0); Lymphocytes % 27.3 % (15.3-44.8); MPV 8.2 fL (7.6-11.3); RBC Red Blood Cell Count 3.55 M/uL (4.33-5.43)
[2021-10-13 05:05] LABS: Potassium 3.9 mmol/L (3.5-5.1)
--- NOTE | 2021-10-13 05:57 | P.PN ---
Date of Service: 10/13/21 Subjective: slight improvement in pain in r leg, L leg much better continues with constipation, had small hard stool yesterday x 3 not much PO intake concerned with dark urine this morning upset that he still has pain in right leg. upset he did not receive heparin drip on admission and now upset that he has been transitioned to Xarelto after having improvement of swelling and pain ROS: 10 point ROS as noted above, otherwise negative Physical exam GEN: Alert, oriented, NAD HEENT: Normal conjunctiva, sclera anicteric CV: Regular rate and rhythm, R> L lower extremity edema, 1-2+ on RLE up to thigh. RLE: warm / perfused, mild tenderness in R calf Pulm: Non-labored respirations on room air, clear to auscultation bilaterally ABD: Soft, nontender, nondistended Integumentary: No rashes, no skin lesions Neuro: Normal speech, normal affect Problem list Acute bilateral lower extremity DVT (R>L) h/o DVT and PEs in the past Recent pyelonephritis BPH Chronic pain Type 2 diabetes mellitus, with chronic neuropathy; insulin dependent CKD 3 Hypothyroid CAD, remote h/o stents/CABG Hypertension Continue IV Rocephin for recent pyelonephritis. Patient started on full dose Lovenox for lower extremity DVT on admission. transitioned to Xarelto evening of 10/12 after noted improvement in pain/swelling h/o PE and DVTs in past, s/p IVC filter was on warfarin for years, switched to ASA + plavix 12/2020, ran out of plavix ~2-3 months later, due to insurance issues/ recent move out of state checked cost of eliquis/xarelto, both affordable, patient preferred xarelto patient upset that he was switched to xarelto, stating heparin is an "elephant gun" when "lovenox and xarelto are a BB gun" for his blood clots I spoke with drier helper this morning to review patient's case, recommended to continue with Xarelto and patient will need time for pain and swelling to further improve echo ordered - patient refused refusing to work with PT Continue home dose of opioid for chronic pain. Continue Flomax for BPH. Insulin sliding scale for glucose management. Home dose Lantus insulin and Novolin 70/30 resumed. patient appears dry on exam, refused to hold lasix, urine darker now, blood pressure is low - low-normal recommend very gentle IVF, hold lasix today, strict I/Os repeat UA, r/o blood in urine renal function stable since admission, if worsening renal function will consult nephrology PT consulted Dispo: anticipate dc home in ~2 days. once ambulating / able to transfer better Time Spent Managing Pts Care (In Minutes): 35
[2021-10-13] MEDS: LEVOTHYROXINE SOD 0.05 MG TABLET PO SCH (06:08)
[2021-10-13] MEDS: Oxycodone HCl/Acetaminophen 1 TAB TAB PO PRN ×2 (06:13→21:37)
[2021-10-13] MEDS: INSULIN -REGULAR HUMAN 50 UNIT/0.5 ML ML SQ SCH ×4 (07:30→21:00)
[2021-10-13] MEDS: INSULIN GLARGINE 100 UNIT/ML SQ SCH ×2 (09:00→21:00)
[2021-10-13] MEDS ORDERED: NA CHLORIDE 0.9% 1,000 ML IV SCH ×2 (09:00→17:00)
[2021-10-13] MEDS: TAMSULOSIN 0.4 MG SR CAP PO SCH ×2 (09:00→21:00)
[2021-10-13] MEDS ORDERED: POTASSIUM CL SA 10 MEQ TAB PO ONE (09:00)
[2021-10-13] MEDS: carvediloL 12.5 MG TAB PO SCH ×2 (09:00→21:29)
[2021-10-13] MEDS: VARDENAFIL HCL 20 MG PO SCH (09:00)
[2021-10-13] MEDS: LACTOBACILLUS/ACIDOPHILUS TAB PO SCH ×3 (09:26→21:29)
[2021-10-13] MEDS: DOCOSAHEXANOIC AC/EPA 1000 MG PO SCH (09:26)
[2021-10-13] MEDS: CITALOPRAM 10 MG TABLET PO SCH (09:27)
[2021-10-13] MEDS: RIVAROXABAN 15 MG TABLET PO SCH (09:27)
[2021-10-13] MEDS: DOCUSATE NA 100 MG CAP PO SCH ×2 (09:27→21:29)
[2021-10-13] MEDS: BUPROPION HCL XL 150 MG TAB PO SCH (09:27)
[2021-10-13] MEDS: PANTOPRAZOLE 40MG TABLET PO SCH (09:28)
[2021-10-13] MEDS: INSULIN 70/30 100 UNITS/ML SQ SCH (09:30)
[2021-10-13] MEDS: CEFTRIAXONE 1,000 MG in NA CHLORIDE 0.9% 50 ML IVPB SCH (09:31)
[2021-10-13 14:52] LABS: Absolute Lymphocytes (CBC) 2.2 K/uL (0.7-4.9); Hematocrit 35.7 % (39.6-49.0); Lymphocytes % 23.8 % (15.3-44.8); MPV 8.1 fL (7.6-11.3); RBC Red Blood Cell Count 3.83 M/uL (4.33-5.43)
[2021-10-13 14:56] LABS: Protime INR 1.33
--- NOTE | 2021-10-13 14:57 | P.PN ---
Subjective Date of Service: 10/13/21 Primary Care Provider: none Chief Complaint: bilateral LE DVT Subjective: Other (I was asked to see patient as he requested another physician. Sister at bedside. At this time reports some urinary discomfort, hematuria, and suprapubic pain. Some anxiety noted. Patient with RLL DVT with pain.) Physical Examination - Vital Signs Temperature: 97.1 F Blood Pressure: 121/50 Pulse: 62 Respirations: 18 Pulse Ox (%): 97 Assessment & Plan Discharge Plan: Home Plan to discharge in: Greater than 2 days Physician Review Additional Text: COVID: COVID Venous doppler: COMPARISON: No comparisons FINDINGS: Color Doppler, grayscale, and spectral analysis was performed. Incomplete compressibility of the right common femoral vein, greater saphenous vein, femoral vein, popliteal vein consistent with the presence of occlusive thrombus. Partial compressibility of the posterior tibial vein consistent with nonocclusive thrombus. The left common femoral vein, greater saphenous vein, femoral vein are partially compressible consistent with nonocclusive thrombus. The popliteal vein and posterior tibial veins are compressible. IMPRESSION: Positive for bilateral deep venous thrombosis, right greater than left. Initial CXR: COMPARISON: No comparisons FINDINGS: Lines: None. Lungs: No evidence of edema or pneumonia. Pleural: No significant pleural effusions or pneumothorax. Cardiac: Cardiomegaly. Sternotomy. Bones: No acute fractures. IMPRESSION: No acute cardiopulmonary disease. CT scan 10/06/2021: COMPARISON: None. TECHNIQUE: Serial axial CT images were obtained from above the diaphragm through the pubic symphysis without administration of intravenous or oral contrast. All CT scans are performed using dose optimization techniques as appropriate, including automated exposure control and/or standardized protocols, where dose is adjusted for indication for exam and body habitus. FINDINGS: Thoracic: No significant abnormality. Hepatobiliary: No obvious concerning hepatic lesion identified in the absence of intravenous contrast. The gallbladder is unremarkable. No biliary ductal dilatation. Pancreas: Unremarkable. Spleen: Unremarkable. Gastrointestinal: No evidence of bowel obstruction or perienteric inflammation. The appendix is nonvisualized, but there are no pericecal inflammatory changes. Adrenals: No abnormality identified in either adrenal gland. Renal: Mild bilateral perinephric fat stranding. No obvious parenchymal abnormality in either kidney in the absence of intravenous contrast. No hydronephrosis or urolithiasis. Bladder/Reproductive: Moderate diffuse bladder wall thickening with surrounding fat stranding. Mild prostatomegaly. Vascular/Lymphatics: No lymphadenopathy identified by CT size criteria. Abdominal aorta is normal in caliber. Infrarenal IVC filter in place. Moderate calcific atherosclerosis. Musculoskeletal: No concerning osseous lesion identified. Prominent disc height loss at L5-S1. Fluid / peritoneum: No significant free fluid. No free intraperitoneal air identified. IMPRESSION: 1. Moderate diffuse bladder wall thickening with surrounding fat stranding, suggestive of cystitis. Consider follow-up imaging or direct visualization to ensure resolution and exclude underlying malignancy. 2. Mild bilateral perinephric fat stranding, likely sequela of remote prior insult. No hydronephrosis or urolithiasis. 3. Mild prostatomegaly. Physical exam GEN: Alert, oriented, NAD. Some anxiety noted HEENT: Normal conjunctiva, sclera anicteric CV: Regular rate and rhythm, R> L lower extremity edema, 1-2+ on RLE up to thigh. RLE: warm / perfused, mild tenderness in R calf Pulm: Non-labored respirations on room air, clear to auscultation bilaterally ABD: Soft, nontender, nondistended Integumentary: No rashes, no skin lesions Neuro: Normal speech, normal affect Genital: Some blood noted from urethra Impression: Acute bilateral lower extremity DVT (R>L) complicated with history of DVT/PE, prior IVC filter in place, and poor compliance Hematuria with suprapubic pain Recent hospitalization for pyelonephritis with urine culture negative BPH DM Type 2 insulin dependent Acute on chronic Renal Disease, Stage 3 Hypothyroidism CAD with history of stents/CABG Hypertension Chronic back pain with DM Neuropathy Plan: Acute bilateral lower extremity DVT (R>L) complicated with history of DVT/PE, prior IVC filter in place, and poor compliance: Case reviewed in detail with Dr. Tabares. Prior notes reviewed. Patient with history of DVT and PE along with IVC filter in the past. He had previously been on Coumadin for his DVT/PE. He is from [place]. He came to the area and did not follow-up with anybody in the area. In December 2020 prior to him coming to the area his telecom specialist took him off Coumadin. He was continued only on aspirin and Plavix at the time for his CAD. After that time he continued with aspirin and Plavix but then he was not able to get refills on his aspirin and Plavix. Around March 2021 he has been without aspirin and Plavix. New findings show extensive bilateral DVT right greater than left. Patient now on Lovenox. Patient was to be transitioned to Xarelto but patient preferred further evaluation. We will continue Lovenox for now. Will discuss with hematology in detail to discuss plan of care and recommendations. Will address hematuria below. Hematuria with suprapubic pain: Patient had some hematuria prior to last admission. Pyelonephritis was diagnosed. Urine culture was negative. Patient now with hematuria. Suprapubic tenderness noted. Case discussed at length with urology who will see the patient. Will check bladder scan to evaluate for urinary retention. If so we will have Ortiz catheter placed to evaluate if with severe hematuria. If with minimal hematuria will continue with Ortiz catheter and flushes. If with severe hematuria will consider placing three-way catheter to initiate bladder irrigation. Await further recommendations from urology. Recent hospitalization for pyelonephritis with urine culture negative: We will obtain urine culture to monitor resolution. Patient remains on IV Rocephin. BPH: Recent CT scan showed moderate diffuse bladder wall thickening suggestive of cystitis along with mild prostamegaly. Urology to review. Continue with Flomax 0.4 mg 1 pill twice daily. Continue with above plan of care. DM Type 2 insulin dependent: We will monitor Accu-Cheks and sliding scale. Will check hemoglobin A1c. Will adjust basal insulin. Acute on chronic Renal Disease, Stage 3: Patient currently on IV fluids. Will monitor closely due to history of CHF. Nephrology consulted. Await recommendations. Future medications need to be renally dosed. Recommend no further use of an ulcer anti-inflammatories. Hypothyroidism: Continue levothyroxine 50 mcg daily CAD with history of stents/CABG: Previously on aspirin and Plavix. Will consult cardiology. Cardiology recommends aspirin only if stents placed greater than [address] Tabares had mentioned stents and CABG was done many years ago. Therefore no need for Plavix at discharge. Await further recommendations from cardiology. Will obtain echocardiogram. Hypertension: Continue carvedilol 12.5 mg 1 pill twice daily. Will monitor and adjust medication. Chronic diastolic CHF: Hold Lasix at this time. Continue IV fluids. Will monitor closely. Will obtain echocardiogram. Chronic back pain with DM Neuropathy: We will provide medication for pain. Continue Flexeril as needed. Continue oxycodone as needed. Constipation: We will provide stool softener. Will provide suppository if needed. Depression with anxiety: Continue Celexa 40 mg daily, Wellbutrin 300 mg daily, and Seroquel 150 mg at bedtime GERD: Continue with Protonix 40 mg daily CODE STATUS: Full code DVT prophylaxis: Lovenox Advance care [email or web address] minutes: Home at discharge Time Spent Managing Pts Care (In Minutes): 55
[2021-10-13 15:43] LABS: Ferritin 487.4 ng/mL (26-388)
--- NOTE | 2021-10-13 16:34 | RAD REPORT ---
EXAM DESCRIPTION: US - Urinary Bladder - 10/13/2021 3:54 pm CLINICAL HISTORY: Hematuria COMPARISON: No comparisons FINDINGS: Transabdominal sonographic evaluation of the urinary bladder was performed. Patient was un able to void due to pain. Along the posterior wall of the urinary bladder there is a 2.5 cm rounded intermediate to hyperechoic mass. This was not mobile. This could be a true mass of the bladder or possible focal blood clot. No other bladder mass or abnormality. No bladder stones seen. Bladder wall overall is not thickened. IMPRESSION: Approximately 2.5 centimeter rounded mass along the posterior wall of the bladder. Bladder mass is suspected though adherent blood clot can have a similar appearance.
[2021-10-13] MEDS: MORPHINE 2 MG/ML SYR IV PRN (17:20)
[2021-10-13] MEDS ORDERED: LIDOCAINE JELLY 2% 5 ML SYRINGE TOP ONE (19:35)
[2021-10-13] MEDS ORDERED: OPIUM/BELLADONNA SUPPOS (30-16.2 MG) PR STA (20:33)
[2021-10-13] MEDS: ATORVASTATIN 40 MG TAB PO SCH (21:00)
[2021-10-13] MEDS ORDERED: ENOXAPARIN 100 MG/ML SYR SQ SCH (21:00)
[2021-10-13] MEDS ORDERED: NACL 0.9% IRR SOLN 6,000 ML IRR ONE (21:01)
[2021-10-13] MEDS: ASPIRIN EC 81 MG TAB PO SCH (21:29)
[2021-10-13] MEDS: QUETIAPINE 100MG TAB PO SCH (21:29)
--- NOTE | 2021-10-13 21:36 | P.CNS ---
Date of Consult: 10/13/21 Reason for Consult: ALESSANDRA/ CKD Requesting Physician: Naveed Flannery Primary Care Provider: none Chief Complaint: bilateral LE DVT History of Present Illness: Mr. Jordan is a 61 yo M with CAD, CKD, DM who was recently discharged from the hospital after treatment of UTI and ALESSANDRA who presents for bilateral pain in his legs. He says when he got home it was too painful for him to walk. He reports tightness is worse in the right leg than the left. He has had multiple PEs in his right lung in the past. He was previously on warfarin but was switched to plavix by a us marketing director last December. He has been out of Plavix since March since he was changing insurances and moving states. He has an IVC filter in place. He also reports his last BM was . He has been feeling increasingly bloated, and feels too bloated to eat. Reports improvement with magnesium citrate in the past. VENOUS DOPPLER IMPRESSION: Positive for bilateral deep venous thrombosis, right greater than left. 16:25 This 61 yrs old Male presents to ER via Wheelchair with complaints of Leg Swelling. [facility] 16:25 The patient presents with pain, that is acute. The complaints affect the right jmm quadriceps, right knee and right albright. Onset: The symptoms/episode began/occurred gradually. Modifying factors: The symptoms are alleviated by nothing. the symptoms are aggravated by nothing. Is a 61-year-old male with history of CAD the presents emerged department with diffuse right leg pain which is exacerbated by standing. Patient was recently hospitalized for acute pyelonephritis and cystitis. He did have some ALESSANDRA which improved with IV fluids. Patient did admit to being without his clopidogrel for over 6 months. Patient has an IVC filter due to multiple pulmonary embolisms.. Allergies No Known Allergies Allergy (Unverified 10/07/21 03:29) Home medications list reviewed: Yes Home Medications: Aspirin [Aspirin EC 81 MG] 81 mg PO BEDTIME 10/07/21 Citalopram [Celexa*] 40 mg PO DAILY 10/07/21 Cyclobenzaprine [Flexeril*] 10 mg PO TID PRN 10/07/21 Esomeprazole Magnesium [Nexium 24Hr] 20 mg PO DAILY 10/07/21 Fish Oil/Dha/Epa [Fish Oil 1,200 mg Fish Oil] 2,400 mg PO BID 10/07/21 Insulin Glargine,Hum.rec.anlog [Toujeo Solostar] 20 unit SQ DAILY 10/07/21 Levothyroxine [Synthroid*] 50 mcg PO [id number] 10/07/21 Lisinopril [Zestril] 10 mg PO BEDTIME 10/07/21 Nitroglycerin 0.4 mg SL SEECOM PRN 10/07/21 Quetiapine [Seroquel*] 150 mg PO BEDTIME 10/07/21 Simvastatin 80 mg PO BEDTIME 10/07/21 Testost Cypionate [Depo-Testosterone*] 0.5 ml IM SEECOM 10/07/21 Bupropion *Xl* [Wellbutrin XL*] 300 mg PO DAILY #30 tab 10/09/21 Carvedilol [Coreg] 12.5 mg PO BID #60 10/09/21 Clopidogrel Bisulfate [Plavix*] 75 mg PO DAILY #30 10/09/21 Insulin NPH Hum/Reg Insulin Hm [Novolin 70-30 100 Unit/ml Vial] 50 unit SQ BID #30 ml 10/09/21 Oxycodone HCl/Acetaminophen [Percocet 5/325 Tab*] 1 tab PO Q6H PRN #20 tab 10/09/21 Docusate Sodium [Dulcolax Stool Softener] 100 mg PO DAILY 10/11/21 Furosemide [Lasix*] 40 mg PO DAILY 10/11/21 Potassium Chloride 20 meq PO Q48H 10/11/21 Apixaban [Eliquis] 5 mg PO SEECOM 30 Days #1 tab.ds.pk 10/12/21 Rivaroxaban [Xarelto] 1 each PO SEECOM 30 Days #1 tab.ds.pk 10/12/21 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 -: CABG x 5 -: cardiac stents -: IVC filter -: tonsillectomy - Social History Smoking Status: Unknown if ever smoked Alcohol use: No CD- Drugs: No Caffeine use: Yes Place of Residence: Home Review of Systems 10-point ROS is otherwise unremarkable General: Weakness, Malaise Cardiovascular: Edema Genitourinary: Retention Physical Examination Temp Pulse Resp BP Pulse Ox 97.9 F 95 H 18 168/81 H 96 10/13/21 20:00 10/13/21 20:00 10/13/21 20:00 10/13/21 20:00 10/13/21 20:00 General: In no apparent distress, Oriented x3, Cooperative HEENT: Atraumatic Neck: Supple Respiratory: Clear to auscultation bilaterally Cardiovascular: Regular rate/rhythm, Edema Gastrointestinal: Hypoactive, Tenderness Musculoskeletal: No clubbing, No contractures Integumentary: No rashes, No cyanosis Neurological: Normal speech Blood work reviewed in the chart. Imagings Data: EXAM DESCRIPTION: US - Urinary Bladder - 10/13/2021 3:54 pm CLINICAL HISTORY: Hematuria COMPARISON: No comparisons FINDINGS: Transabdominal sonographic evaluation of the urinary bladder was performed. Patient was unable to void due to pain. Along the posterior wall of the urinary bladder there is a 2.5 cm rounded intermediate to hyperechoic mass. This was not mobile. This could be a true mass of the bladder or possible focal blood clot. No other bladder mass or abnormality. No bladder stones seen. Bladder wall overall is not thickened. IMPRESSION: Approximately 2.5 centimeter rounded mass along the posterior wall of the bladder. Bladder mass is suspected though adherent blood clot can have a similar appearance. EXAM DESCRIPTION: US - Extrem Venous W Compress Guilherme - 10/09/2021 6:10 pm CLINICAL HISTORY: lower extremity pain COMPARISON: No comparisons FINDINGS: Color Doppler, grayscale, and spectral analysis was performed. Incomplete compressibility of the right common femoral vein, greater saphenous vein, femoral vein, popliteal vein consistent with the presence of occlusive thrombus. Partial compressibility of the posterior tibial vein consistent with nonocclusive thrombus. The left common femoral vein, greater saphenous vein, femoral vein are partially compressible consistent with nonocclusive thrombus. The popliteal vein and posterior tibial veins are compressible. IMPRESSION: Positive for bilateral deep venous thrombosis, right greater than left. EXAM DESCRIPTION: RAD - Chest Single View - 10/09/2021 4:56 pm CLINICAL HISTORY: weakness COMPARISON: No comparisons FINDINGS: Lines: None. Lungs: No evidence of edema or pneumonia. Pleural: No significant pleural effusions or pneumothorax. Cardiac: Cardiomegaly. Sternotomy. Bones: No acute fractures. Other: IMPRESSION: No acute cardiopulmonary disease. Conclusions/Impression: ALESSANDRA, improving CKD III -No NSAIDs Hyponatremia Hypocalcemia -Start Vitamin D3 HTN with CKD -Continue Coreg LE Edema -Low sodium diet DM II with hyperglycemia -Continue Lantus -RISS Anemia in chronic illness Iron deficiency 12.2% -Monitor H&H Gross Hematuria Bladder Mass -Ortiz catheter with irrigation -Follow up with urology -Continue Flomax Thank you kindly for the consultation. Case reviewed with Dr. Flannery
[2021-10-13] MEDS: HEPARIN/D5W 25,000 UNIT/500 ML BAG IV PRN (21:40)
--- NOTE | 2021-10-13 21:44 | CON ---
Reason For Consultation: Urinary retention and gross hematuria. History Of Present Illness: Mr. Jordan is a 61-year-old gentleman, who presented to the emergency depa rtment apparently on of last week with inability to void, followed by dysuria and passage of some blood clots. The gross hematuria is what scared him and prompted his visit to the emergency de partment, but he was also experiencing severe leg pain and had leg swelling. Upon evaluation by the emergency department following apparently a discharge and return to the emergency department, the nay zelaya was diagnosed with a DVT. Of note, he has a history of pulmonary emboli and was previously amisha livan with oral anticoagulants. According to the patient, he underwent a prior hospital admission or s urgical procedure at an outside facility, and when he was discharged, he was discharged without his o ral anticoagulant. He feels this is the reason for his development of a new DVT at this time. While admitted for management of his DVT, he was observed to have gross hematuria and extreme difficulty v oiding. Eventually, they placed an 18-[place]inean urethral Ortiz catheter and drained over 700 cc of urin e. Because there was significant gross hematuria, the catheter was apparently changed to a 3-way Fol ey catheter. I then came into the circumstance at this point. Past Medical History: Significant for coronary artery disease status post percutaneous intervention and CABG x5, chronic kidney disease, type 2 diabetes, and a history of pulmonary embolism on Coumadin with an IVC filter in place. Social History: The patient is an extensive smoker, on average 1 to 1-1/2 packs per day for over 45 years. Family History: The patient had no urologic malignancy history within his family. Physical Examination: General: On examination, the patient is lying supine in the hospital bed in moderate distress. Lungs: There was no dyspnea or signs of respiratory distress. Neuro: He was alert and awake and oriented x3 and verbally jostled during the evaluation. Genitourinary: His genitalia were circumcised and an 18-[place]ine[place] 3-way Ortiz catheter was in place. T here was extensively bloody urine within the tubing of the catheter, which was questionably draining. As a result, I recommended evaluation of the catheter. Bladder Irrigation Procedure Note: Using a 60 cc catheter-tip syringe and normal saline as well as s terile water, I irrigated his bladder with over 2 L of the fluid to remove a significant burden of cl ot. I then exchanged the 18-[place]ine[place] catheter for a 22-[place]ine[place] 3-way Ortiz catheter and continued to ir rigate his bladder freeing it of a significant burden of additional formed clot likely attached to th e bladder wall. Once it completely irrigated, I connected his catheter to continuous bladder irrigat ion using normal saline and was able to initiate the saline drip at a slow rate and irrigate his blad [place] with the efflux of urine being only light pink-tinged. Of note, the patient had several bladder spasms during the procedure and even after CBI was running nicely at slow drip with no sign of obstru ction. Assessment And Recommendations: This is a 61-year-old gentleman with coronary artery disease post pe rcutaneous intervention and coronary artery bypass graft x5, chronic kidney disease, type 2 diabetes, and history of pulmonary embolism on Coumadin with an IVC filter in place, who was admitted with a l ower extremity deep venous thrombosis and significant gross hematuria causing clot retention associat ed with severe bladder spasms. I recommend titrating continuous bladder irrigation to keep the urine light pink to clear using darius l saline and ensure it remains continuous. I instructed that the nurses may irrigate the catheter manually using a 60 cc catheter-tip syringe an d normal saline should it become clogged. I recommended belladonna and opiate suppositories administered per rectum every 8 hours for the bladd er spasms and they may hold on administering the suppository for sedation. Continue antimicrobial therapy while awaiting results of urine culture hopefully sent before manual i rrigations began. The patient will require cystoscopic evaluation within the next 2-3 weeks, but when the heparin is re sumed in management of his deep venous thrombosis, the urine becomes significantly bloody and is not able to be titrated off relative to the continuous bladder irrigation, he may require more timely ope rative evaluation. Please note that I spent 2 hours in this consultation and manipulations with the patient this evening . JOANNE/LISA Voice ID: [id number] Report ID: [id number]
[2021-10-13] MEDS: CYCLOBENZAPRINE 10 MG TAB PO PRN (23:05)
[2021-10-13] MEDS: NACL 0.9% IRR SOLN 4,000 ML IRR ONE (23:06)
[2021-10-14 02:44] LABS: Absolute Lymphocytes (CBC) 2.4 K/uL (0.7-4.9); Hematocrit 33.8 % (39.6-49.0); Lymphocytes % 20.7 % (15.3-44.8); RBC Red Blood Cell Count 3.63 M/uL (4.33-5.43)
[2021-10-14 03:03] LABS: Magnesium 2.3 mg/dL (1.8-2.4); Potassium 4.5 mmol/L (3.5-5.1); Thyroid Stimulating Hormone 0.777 uIU/mL (0.360-3.740)
[2021-10-14] MEDS ORDERED: NACL 0.9% IRR SOLN 2,000 ML IRR ONE (04:30)
[2021-10-14] MEDS: LEVOTHYROXINE SOD 0.05 MG TABLET PO SCH (05:05)
--- NOTE | 2021-10-14 05:49 | P.PN ---
Subjective Date of Service: 10/14/21 Primary Care Provider: none, From [place] Chief Complaint: bilateral LE DVT Subjective: Improving, Other (Swelling to the right lower extremity improved. Bladder irrigation system in place. Urine appears pink) Physical Examination - Vital Signs Temperature: 97.5 F Blood Pressure: 119/61 Pulse: 72 Respirations: 17 Pulse Ox (%): 97 Assessment & Plan Discharge Plan: Home Plan to discharge in: Greater than 2 days Physician Review Additional Text: COVID: COVID Venous doppler: COMPARISON: No comparisons FINDINGS: Color Doppler, grayscale, and spectral analysis was performed. Incomplete compressibility of the right common femoral vein, greater saphenous vein, femoral vein, popliteal vein consistent with the presence of occlusive thrombus. Partial compressibility of the posterior tibial vein consistent with nonocclusive thrombus. The left common femoral vein, greater saphenous vein, femoral vein are partially compressible consistent with nonocclusive thrombus. The popliteal vein and posterior tibial veins are compressible. IMPRESSION: Positive for bilateral deep venous thrombosis, right greater than left. Initial CXR: COMPARISON: No comparisons FINDINGS: Lines: None. Lungs: No evidence of edema or pneumonia. Pleural: No significant pleural effusions or pneumothorax. Cardiac: Cardiomegaly. Sternotomy. Bones: No acute fractures. IMPRESSION: No acute cardiopulmonary disease. CT scan 10/06/2021: COMPARISON: None. TECHNIQUE: Serial axial CT images were obtained from above the diaphragm through the pubic symphysis without administration of intravenous or oral contrast. All CT scans are performed using dose optimization techniques as appropriate, including automated exposure control and/or standardized protocols, where dose is adjusted for indication for exam and body habitus. FINDINGS: Thoracic: No significant abnormality. Hepatobiliary: No obvious concerning hepatic lesion identified in the absence of intravenous contrast. The gallbladder is unremarkable. No biliary ductal dilatation. Pancreas: Unremarkable. Spleen: Unremarkable. Gastrointestinal: No evidence of bowel obstruction or perienteric inflammation. The appendix is nonvisualized, but there are no pericecal inflammatory changes. Adrenals: No abnormality identified in either adrenal gland. Renal: Mild bilateral perinephric fat stranding. No obvious parenchymal abnormality in either kidney in the absence of intravenous contrast. No hydronephrosis or urolithiasis. Bladder/Reproductive: Moderate diffuse bladder wall thickening with surrounding fat stranding. Mild prostatomegaly. Vascular/Lymphatics: No lymphadenopathy identified by CT size criteria. Abdominal aorta is normal in caliber. Infrarenal IVC filter in place. Moderate calcific atherosclerosis. Musculoskeletal: No concerning osseous lesion identified. Prominent disc height loss at L5-S1. Fluid / peritoneum: No significant free fluid. No free intraperitoneal air identified. IMPRESSION: 1. Moderate diffuse bladder wall thickening with surrounding fat stranding, suggestive of cystitis. Consider follow-up imaging or direct visualization to ensure resolution and exclude underlying malignancy. 2. Mild bilateral perinephric fat stranding, likely sequela of remote prior insult. No hydronephrosis or urolithiasis. 3. Mild prostatomegaly. Bladder US: COMPARISON: No comparisons FINDINGS: Transabdominal sonographic evaluation of the urinary bladder was performed. Patient was unable to void due to pain. Along the posterior wall of the urinary bladder there is a 2.5 cm rounded intermediate to hyperechoic mass. This was not mobile. This could be a true mass of the bladder or possible focal blood clot. No other bladder mass or abnormality. No bladder stones seen. Bladder wall overall is not thickened. IMPRESSION: Approximately 2.5 centimeter rounded mass along the posterior wall of the bladder. Bladder mass is suspected though adherent blood clot can have a similar appearance. Physical exam GEN: Alert oriented. No acute distress. Less anxiety noted today. HEENT: Normal conjunctiva, sclera anicteric CV: Regular rate and rhythm. Pulm: Clear to auscultation. On room air. ABD: Soft, nontender, nondistended Integumentary: Edema to the right lower extremity appears improved. Better movement noted. Neuro: Alert oriented. Genital: Three-way catheter with irrigation system in place. Urine appears pink in color Impression: Acute bilateral lower extremity DVT (R>L) complicated with history of DVT/PE, prior IVC filter in place, and poor compliance Hematuria with suprapubic pain Recent hospitalization for pyelonephritis with urine culture negative BPH DM Type 2 insulin dependent Acute on chronic Renal Disease, Stage 3 Hypothyroidism CAD with history of stents/CABG Hypertension Chronic back pain with DM Neuropathy Plan: Acute bilateral lower extremity DVT (R>L) complicated with history of DVT/PE, prior IVC filter in place, and poor compliance: Patient appears improved. Less swelling to the right lower extremity noted today. Continue with heparin drip. Case discussed in detail with nephrology, urology, cardiology, and hematology yesterday. Case reviewed in detail with patient yesterday along with sister. Patient remains on continuous bladder irrigation. Urine pink in color. An ticipate switching over from heparin drip to Xarelto tomorrow. Hematology recommends aspirin and Xarelto at discharge. Continue with physical therapy. Patient history reviewed. Patient with history of DVT, PE in 2005 after his 5 vessel CABG. Patient had been on aspirin and Coumadin since that time(2005), but his caretaker grounds in [place] in February 2021 changed his medication to aspirin and Plavix. He had been without aspirin and Plavix since March 2021 since moving to the area. At discharge patient will continue with aspirin and Xarelto at discharge as recommended by hematology. Patient will need to continue with aspirin and Xarelto indefinitely. Hematuria with suprapubic pain: Patient improved. Continue with bladder irrigation system. Continue with urology recommendations including keeping irrigation to keep urine light pink to clear. We will continue to titrate. Urology also recommended belladonna opioid suppository per rectum every 8 hours for bladder spasm. Hold if with increase sedation. Continue IV antibiotic therapy. Await urine culture results. Patient may require cystoscopy within the next 2 to 3 weeks pending improvement of his current situation. If hematuria persists cystoscopy may be required during this hospitalization. We will continue to follow urology recommendations. Recent hospitalization for pyelonephritis with urine culture negative: Urine culture obtained. Await findings. Patient remains on IV Rocephin. BPH: Recent CT scan showed moderate diffuse bladder wall thickening suggestive of cystitis along with mild prostamegaly. Continue with urology recommendations. Flomax 0.4 mg 1 pill twice daily. DM Type 2 insulin dependent: Hemoglobin A1c 9.9. Patient on basal insulin. Continue to monitor and adjust. Accu-Cheks in place. Sliding scale in place. Acute on chronic Renal Disease, Stage 3: Renal function stable. Patient consider discontinuing IV fluids today if taking good oral intake. Will discuss with nephrology. Await recommendations. Future medications need to be renally dosed. Recommend no further use of an ulcer anti-inflammatories. Hypothyroidism: TSH and free T4 are within normal range. Continue levothyroxine 50 mcg daily CAD with history of stents/CABG: Previously on aspirin and Plavix. Patient previously seen in [place] with cardiology. Patient with history of heart catheterization and stent in 2005. That same year he had 5 vessel CABG. Case discussed in detail with cardiology. Will obtain echocardiogram. No need for Plavix at discharge. Continue with above recommendations of aspirin and Xarelto at discharge. Hypertension: Continue carvedilol 12.5 mg 1 pill twice daily. Will monitor and adjust medication. Chronic diastolic CHF: Hold Lasix at this time. Continue IV fluids. Will obtain echocardiogram. Patient remains on room air. If taking good oral intake will discontinue IV fluids and restart Lasix. Chronic back pain with DM Neuropathy: Continue with medication for pain. Continue Flexeril as needed. Continue oxycodone as needed. Constipation: Stool softener provided. Depression with anxiety: Continue Celexa 40 mg daily, Wellbutrin 300 mg daily, and Seroquel 150 mg at bedtime GERD: Continue with Protonix 40 mg daily CODE STATUS: Full code DVT prophylaxis: Heparin Advance care [id number] minutes: Home at discharge Time Spent Managing Pts Care (In Minutes): 55
[2021-10-14] MEDS: INSULIN -REGULAR HUMAN 50 UNIT/0.5 ML ML SQ SCH ×4 (08:45→20:20)
[2021-10-14] MEDS: PANTOPRAZOLE 40MG TABLET PO SCH (08:50)
[2021-10-14] MEDS ORDERED: TRAMADOL HCL 50 MG TAB PO PRN (08:52)
[2021-10-14] MEDS: CEFTRIAXONE 1,000 MG in NA CHLORIDE 0.9% 50 ML IVPB SCH (09:00)
[2021-10-14] MEDS: VARDENAFIL HCL 20 MG PO SCH (09:00)
[2021-10-14] MEDS: carvediloL 12.5 MG TAB PO SCH ×2 (09:00→20:15)
[2021-10-14] MEDS ORDERED: CEFTRIAXONE 1000 MG/VIAL ONE (09:33)
[2021-10-14] MEDS ORDERED: NA CHLORIDE 0.9% 50 ML ONE (09:45)
[2021-10-14] MEDS: BUPROPION HCL XL 150 MG TAB PO SCH (09:50)
[2021-10-14] MEDS: LACTOBACILLUS/ACIDOPHILUS TAB PO SCH ×3 (09:50→20:21)
[2021-10-14] MEDS: TAMSULOSIN 0.4 MG SR CAP PO SCH ×2 (09:50→20:21)
[2021-10-14] MEDS: DOCOSAHEXANOIC AC/EPA 1000 MG PO SCH (09:50)
[2021-10-14] MEDS: DOCUSATE NA 100 MG CAP PO SCH ×2 (09:50→20:21)
[2021-10-14] MEDS: VITAMIN D 5,000 UNIT CAP PO SCH (09:50)
[2021-10-14] MEDS: INSULIN GLARGINE 100 UNIT/ML SQ SCH ×2 (09:50→20:18)
[2021-10-14] MEDS: CITALOPRAM 10 MG TABLET PO SCH (09:50)
[2021-10-14] MEDS: Oxycodone HCl/Acetaminophen 1 TAB TAB PO PRN ×2 (11:49→17:22)
[2021-10-14] MEDS: NACL 0.9% IRR SOLN 2,000 ML IRR SCH ×2 (12:45→19:16)
[2021-10-14] MEDS: HEPARIN/D5W 25,000 UNIT/500 ML BAG IV PRN (13:45)
--- NOTE | 2021-10-14 14:49 | ECHO ---
HEIGHT: 6 ft 0 in WEIGHT: 230 lb 0 oz DATE OF STUDY: 10/14/[address]: Naveed Flannery DO 2-DIMENSIONAL: YES M.MODE: YES DOPPLER: [*] COLOR FLOW: YES TDS: NO PORTABLE: NO DEFINITY: NO BUBBLE STUDY: NO DIAGNOSIS: HISTORY OF CONGESTIVE HEART FAILURE/HYPERTENSION/CORONARYARTERY DISEASE CARDIAC HISTORY: CATHERIZATION: YES SURGERY: YES PROSTHETIC VALVE: NO PACEMAKER: NO MEASUREMENTS (cm) DIASTOLIC (NORMALS) SYSTOLIC (NORMALS) IVSd 1.3 (0.6-1.2) LA Diam 5.3 (1.9-4.0) LVEF 52% LVIDd 5.6 (3.5-5.7) LVIDs 4.1 (2.0-3.5) %FS 27% LVPWd 1.3 (0.6-1.2) Ao Diam 3.3 (2.0-3.7) 2 DIMENSIONAL ASSESSMENT: RIGHT ATRIUM: NORMAL LEFT ATRIUM: NORMAL RIGHT VENTRICLE: NORMAL LEFT VENTRICLE: LEFT VENTRICULAR HYPERTROPHY TRICUSPID VALVE: NORMAL MITRAL VALVE: NORMAL PULMONIC VALVE: NORMAL AORTIC VALVE: NORMAL PERICARDIAL EFFUSION: NONE AORTIC ROOT: NORMAL LEFT VENTRICULAR WALL MOTION: DECREASED LEFT VENTRICULAR COMPLIANCE. DOPPLER/COLOR FLOW: DECREASED LEFT VENTRICULAR COMPLIANCE. MILD TRICUSPID REGURGITATION. COMMENTS: MILD TRICUSPID REGURGITATION. DECREASED LEFT VENTRICULAR COMPLIANCE. LEFT VENTRICULAR HYPERTROPHY. NORMAL EJECTION FRACTION. TECHNOLOGIST: DANIELLE KHAN
[2021-10-14] MEDS ORDERED: OPIUM/BELLADONNA SUPPOS (30-16.2 MG) PR PRN (18:55)
[2021-10-14] MEDS ORDERED: FLEET ENEMA ADULT PR PRN (19:04)
[2021-10-14] MEDS: CYCLOBENZAPRINE 10 MG TAB PO PRN (20:13)
[2021-10-14] MEDS: ATORVASTATIN 40 MG TAB PO SCH (20:13)
[2021-10-14] MEDS: ASPIRIN EC 81 MG TAB PO SCH (20:14)
[2021-10-14] MEDS: QUETIAPINE 100MG TAB PO SCH (20:18)
--- NOTE | 2021-10-14 22:29 | P.PN ---
Date of Service: 10/14/21 Vital Signs Temp Pulse Resp BP Pulse Ox 97.2 F 105 H 19 189/82 H 97 10/14/21 20:00 10/14/21 20:15 10/14/21 20:00 10/14/21 20:15 10/14/21 20:00 Medications Aspirin (Aspirin Ec 81 Mg Tab) 81 mg PO BEDTIME [facility] Last Admin: 10/14/21 20:14 Dose: 81 mg Documented by: Atorvastatin Calcium (Atorvastatin 40 Mg Tab) 40 mg PO BEDTIME [facility] Last Admin: 10/14/21 20:13 Dose: 40 mg Documented by: Belladonna Alkaloids/Opium (Opium/Belladonna Suppos (30-16.2 Mg)) 1 supp AK Q8H PRN PRN Reason: Pain scale 5-7 (Moderate) Last Admin: 10/14/21 19:37 Dose: 1 supp Documented by: Bupropion HCl (Bupropion Hcl Xl 150 Mg Tab) 300 mg PO DAILY [facility] Last Admin: 10/14/21 09:50 Dose: 300 mg Documented by: Calcium Carbonate/Glycine (Calcium Carbonate 500 Mg Tab) 1,000 mg PO TID PRN PRN Reason: INDIGESTION Carvedilol (Carvedilol 12.5 Mg Tab) 12.5 mg PO BID [facility] Last Admin: 10/14/21 20:15 Dose: 12.5 mg Documented by: Cholecalciferol (Vitamin D 5,000 Unit Cap) 5,000 unit PO DAILY [facility] Last Admin: 10/14/21 09:50 Dose: 5,000 unit Documented by: Citalopram Hydrobromide (Citalopram 10 Mg Tablet) 40 mg PO DAILY [facility] Last Admin: 10/14/21 09:50 Dose: 40 mg Documented by: Cyclobenzaprine HCl (Cyclobenzaprine 10 Mg Tab) 10 mg PO TID PRN PRN Reason: MUSCLE SPASMS Last Admin: 10/14/21 20:13 Dose: 10 mg Documented by: Dextrose (D50w 25 Gm/50 Ml Syringe) 12.5 gm IV PRN PRN; Protocol PRN Reason: HYPOGLYCEMIA Docusate Sodium (Docusate Na 100 Mg Cap) 100 mg PO BID [facility] Last Admin: 10/14/21 20:21 Dose: Not Given Documented by: Fish Oil (Docosahexanoic Ac/Epa 1000 Mg) 2,000 mg PO DAILY [facility] Last Admin: 10/14/21 09:50 Dose: 2,000 mg Documented by: Furosemide (Furosemide 40 Mg Tablet) 40 mg PO DAILY [facility] Glucagon (Glucagon 1 Mg/Vial) 1 mg IM 1X PRN; Protocol PRN Reason: HYPOGLYCEMIA Heparin Sodium (Porcine) (Heparin 1,000 Unit/Ml Vial) 0 unit IV PRN PRN PRN Reason: Heparin Re-Bolus Per Protocol Home Med (Vardenafil Hcl [Levitra]) 20 mg PO DAILY [facility] Last Admin: 10/14/21 09:00 Dose: Not Given Documented by: Ceftriaxone Sodium 1,000 mg/ (Sodium Chloride) 50 mls @ 100 mls/hr IVPB DAILY [facility]; Protocol Last Admin: 10/14/21 09:00 Dose: Not Given Documented by: Heparin Sodium/Dextrose (Heparin Drip 25,000 Units/5oo Ml Premix) 25,000 unit in 500 mls @ 36 mls/hr IV .TITRATE PRN; Protocol PRN Reason: PER PTT RESULTS Last Admin: 10/14/21 13:45 Dose: 500 mls Documented by: Sodium Chloride (Sodium Chloride Irrigation Bag) 2,000 mls @ 0 mls/hr IRR UD [facility] Last Admin: 10/14/21 19:16 Dose: 2,000 mls Documented by: Insulin Glargine (Insulin Glargine 100 Unit/Ml) 20 unit SQ BID [facility] Last Admin: 10/14/21 20:18 Dose: 20 unit Documented by: Insulin Human Regular (Insulin -Regular Human 50 Unit/0.5 Ml Ml) 0 unit SQ ACHS [facility]; Protocol Last Admin: 10/14/21 20:20 Dose: Not Given Documented by: Lactobacillus Acidoph/Bulgaricus (Lactobacillus/Acidophilus Tab) 1 tab PO TID [facility] Last Admin: 10/14/21 20:21 Dose: Not Given Documented by: Levothyroxine Sodium (Levothyroxine Sod 0.05 Mg Tablet) 0.05 mg PO [id number] [facility] Last Admin: 10/14/21 05:05 Dose: 0.05 mg Documented by: Morphine Sulfate (Morphine 2 Mg/Ml Syr) 2 mg IV Q6H PRN PRN Reason: Pain scale 8-10 (Severe) Last Admin: 10/13/21 17:20 Dose: 2 mg Documented by: Nitroglycerin (Nitroglycerin 0.4 Mg/Tab) 0.4 mg SL SEECOM PRN PRN Reason: Chest Pain Ondansetron HCl (Ondansetron 4 Mg/2 Ml Vial) 4 mg IV Q6HP PRN PRN Reason: NAUSEA / VOMITING Oxycodone/Acetaminophen (Oxycodone Hcl/Acetaminophen 1 Tab Tab) 1 tab PO Q6H PRN PRN Reason: Pain scale 5-7 (Moderate) Last Admin: 10/14/21 17:22 Dose: 1 tab Documented by: Pantoprazole Sodium (Pantoprazole 40mg Tablet) 40 mg PO ACB [facility] Last Admin: 10/14/21 08:50 Dose: 40 mg Documented by: Quetiapine Fumarate (Quetiapine 100mg Tab) 150 mg PO BEDTIME [facility] Last Admin: 10/14/21 20:18 Dose: 150 mg Documented by: Sodium Biphosphate/Sodium Phosphate (Fleet Enema Adult) 133 ml AK 1X PRN PRN Reason: CONSTIPATION Sodium Chloride (Flush Normal Saline 10 Ml) 10 ml IV BID [facility] Last Admin: 10/14/21 20:19 Dose: 10 ml Documented by: Tamsulosin HCl (Tamsulosin 0.4 Mg Sr Cap) 0.4 mg PO BID [facility] Last Admin: 10/14/21 20:21 Dose: 0.4 mg Documented by: Tramadol HCl (Tramadol Hcl 50 Mg Tab) 50 mg PO TID PRN PRN Reason: Pain scale 2-4 (Mild) Last Admin: 10/14/21 20:14 Dose: 50 mg Documented by: Assessment/ Plan: Nephrology No dyspnea No chest pain Persistent pain due to bladder spasm No acute events overnight Vitals, medications, blood work and imaging reviewed in the chart General: In no apparent distress, Oriented x3, Cooperative HEENT: Atraumatic Neck: Supple Respiratory: Clear to auscultation bilaterally Cardiovascular: Regular rate/rhythm, Edema Gastrointestinal: Hypoactive, Tenderness Musculoskeletal: No clubbing, No contractures Integumentary: No rashes, No cyanosis Neurological: Normal speech Blood work reviewed in the chart. Imagings Data: EXAM DESCRIPTION: US - Urinary Bladder - 10/13/2021 3:54 pm CLINICAL HISTORY: Hematuria COMPARISON: No comparisons FINDINGS: Transabdominal sonographic evaluation of the urinary bladder was performed. Patient was unable to void due to pain. Along the posterior wall of the urinary bladder there is a 2.5 cm rounded intermediate to hyperechoic mass. This was not mobile. This could be a true mass of the bladder or possible focal blood clot. No other bladder mass or abnormality. No bladder stones seen. Bladder wall overall is not thickened. IMPRESSION: Approximately 2.5 centimeter rounded mass along the posterior wall of the bladder. Bladder mass is suspected though adherent blood clot can have a similar appearance. EXAM DESCRIPTION: US - Extrem Venous W Compress Guilherme - 10/09/2021 6:10 pm CLINICAL HISTORY: lower extremity pain COMPARISON: No comparisons FINDINGS: Color Doppler, grayscale, and spectral analysis was performed. Incomplete compressibility of the right common femoral vein, greater saphenous vein, femoral vein, popliteal vein consistent with the presence of occlusive thrombus. Partial compressibility of the posterior tibial vein consistent with nonocclusive thrombus. The left common femoral vein, greater saphenous vein, femoral vein are partially compressible consistent with nonocclusive thrombus. The popliteal vein and posterior tibial veins are compressible. IMPRESSION: Positive for bilateral deep venous thrombosis, right greater than left. EXAM DESCRIPTION: RAD - Chest Single View - 10/09/2021 4:56 pm CLINICAL HISTORY: weakness COMPARISON: No comparisons FINDINGS: Lines: None. Lungs: No evidence of edema or pneumonia. Pleural: No significant pleural effusions or pneumothorax. Cardiac: Cardiomegaly. Sternotomy. Bones: No acute fractures. Other: IMPRESSION: No acute cardiopulmonary disease. Conclusions/Impression: ALESSANDRA, improving CKD III -No NSAIDs Hyponatremia Hypocalcemia -Continue Vitamin D3 HTN with CKD -Increase Coreg LE Edema -Low sodium diet DM II with hyperglycemia -Continue Lantus -RISS Anemia in chronic illness Iron deficiency 12.2% -Monitor H&H Gross Hematuria Bladder Mass -Ortiz catheter with irrigation -Follow up with urology -Continue Flomax Case reviewed with Dr. Flannery
[2021-10-14] MEDS ORDERED: HYDROMORPHONE HCL 1 MG/ML INJ IV ONE (22:50)
[2021-10-15] MEDS ORDERED: NACL 0.9% IRR SOLN 2,000 ML IRR ONE ×2 (00:13→06:14)
[2021-10-15] MEDS: HEPARIN/D5W 25,000 UNIT/500 ML BAG IV PRN (04:08)
--- NOTE | 2021-10-15 05:45 | P.PN ---
Subjective Date of Service: 10/15/21 Primary Care Provider: none, From [place] Chief Complaint: bilateral LE DVT Subjective: Doing well Physical Examination - Vital Signs Temperature: 96.9 F Blood Pressure: 102/59 Pulse: 65 Respirations: 16 Pulse Ox (%): 96 Assessment & Plan Discharge Plan: Home Plan to discharge in: Greater than 2 days Physician Review Additional Text: COVID: COVID Venous doppler: COMPARISON: No comparisons FINDINGS: Color Doppler, grayscale, and spectral analysis was performed. Incomplete compressibility of the right common femoral vein, greater saphenous vein, femoral vein, popliteal vein consistent with the presence of occlusive thrombus. Partial compressibility of the posterior tibial vein consistent with nonocclusive thrombus. The left common femoral vein, greater saphenous vein, femoral vein are partially compressible consistent with nonocclusive thrombus. The popliteal vein and posterior tibial veins are compressible. IMPRESSION: Positive for bilateral deep venous thrombosis, right greater than left. Initial CXR: COMPARISON: No comparisons FINDINGS: Lines: None. Lungs: No evidence of edema or pneumonia. Pleural: No significant pleural effusions or pneumothorax. Cardiac: Cardiomegaly. Sternotomy. Bones: No acute fractures. IMPRESSION: No acute cardiopulmonary disease. CT scan 10/06/2021: COMPARISON: None. TECHNIQUE: Serial axial CT images were obtained from above the diaphragm through the pubic symphysis without administration of intravenous or oral contrast. All CT scans are performed using dose optimization techniques as appropriate, including automated exposure control and/or standardized protocols, where dose is adjusted for indication for exam and body habitus. FINDINGS: Thoracic: No significant abnormality. Hepatobiliary: No obvious concerning hepatic lesion identified in the absence of intravenous contrast. The gallbladder is unremarkable. No biliary ductal dilatation. Pancreas: Unremarkable. Spleen: Unremarkable. Gastrointestinal: No evidence of bowel obstruction or perienteric inflammation. The appendix is nonvisualized, but there are no pericecal inflammatory changes. Adrenals: No abnormality identified in either adrenal gland. Renal: Mild bilateral perinephric fat stranding. No obvious parenchymal abnormality in either kidney in the absence of intravenous contrast. No hydronephrosis or urolithiasis. Bladder/Reproductive: Moderate diffuse bladder wall thickening with surrounding fat stranding. Mild prostatomegaly. Vascular/Lymphatics: No lymphadenopathy identified by CT size criteria. Abdominal aorta is normal in caliber. Infrarenal IVC filter in place. Moderate calcific atherosclerosis. Musculoskeletal: No concerning osseous lesion identified. Prominent disc height loss at L5-S1. Fluid / peritoneum: No significant free fluid. No free intraperitoneal air identified. IMPRESSION: 1. Moderate diffuse bladder wall thickening with surrounding fat stranding, suggestive of cystitis. Consider follow-up imaging or direct visualization to ensure resolution and exclude underlying malignancy. 2. Mild bilateral perinephric fat stranding, likely sequela of remote prior insult. No hydronephrosis or urolithiasis. 3. Mild prostatomegaly. Bladder US: COMPARISON: No comparisons FINDINGS: Transabdominal sonographic evaluation of the urinary bladder was performed. Patient was unable to void due to pain. Along the posterior wall of the urinary bladder there is a 2.5 cm rounded intermediate to hyperechoic mass. This was not mobile. This could be a true mass of the bladder or possible focal blood clot. No other bladder mass or abnormality. No bladder stones seen. Bladder wall overall is not thickened. IMPRESSION: Approximately 2.5 centimeter rounded mass along the posterior wall of the bladder. Bladder mass is suspected though adherent blood clot can have a similar appearance. ECHO: MEASUREMENTS (cm) DIASTOLIC (NORMALS) SYSTOLIC (NORMALS) IVSd 1.3 (0.6-1.2) LA Diam 5.3 (1.9-4.0) LVEF 52% LVIDd 5.6 (3.5-5.7) LVIDs 4.1 (2.0-3.5) %FS 27% LVPWd 1.3 (0.6-1.2) Ao Diam 3.3 (2.0-3.7) 2 DIMENSIONAL ASSESSMENT: RIGHT ATRIUM: NORMAL LEFT ATRIUM: NORMAL RIGHT VENTRICLE: NORMAL LEFT VENTRICLE: LEFT VENTRICULAR HYPERTROPHY TRICUSPID VALVE: NORMAL MITRAL VALVE: NORMAL PULMONIC VALVE: NORMAL AORTIC VALVE: NORMAL PERICARDIAL EFFUSION: NONE AORTIC ROOT: NORMAL LEFT VENTRICULAR WALL MOTION: DECREASED LEFT VENTRICULAR COMPLIANCE. DOPPLER/COLOR FLOW: DECREASED LEFT VENTRICULAR COMPLIANCE. MILD TRICUSPID REGURGITATION. COMMENTS: MILD TRICUSPID REGURGITATION. DECREASED LEFT VENTRICULAR COMPLI ANCE. LEFT VENTRICULAR HYPERTROPHY. NORMAL EJECTION FRACTION. Physical exam GEN: Alert oriented. No acute distress. Less anxiety noted today. HEENT: Normal conjunctiva, sclera anicteric CV: Regular rate and rhythm. Pulm: Clear to auscultation. On room air. ABD: Soft, nontender, nondistended Integumentary: Edema to the right lower extremity remains improved. Better mov ement noted. Neuro: Alert oriented. Genital: Three-way catheter with irrigation system in place. Urine appears pink to clear in color Impression: Acute bilateral lower extremity DVT (R>L) complicated with history of DVT/PE, prior IVC filter in place, and poor compliance Hematuria with suprapubic pain, urinary retention Recent hospitalization for pyelonephritis with urine culture negative BPH DM Type 2 insulin dependent Acute on chronic Renal Disease, Stage 3 Hypothyroidism CAD with history of stents/CABG Hypertension Chronic back pain with DM Neuropathy Plan: Acute bilateral lower extremity DVT (R>L) complicated with history of DVT/PE, prior IVC filter in place, and poor compliance: Patient remained stable and improved. Less swelling noted to the right lower extremity. Will discontinue heparin drip and transition to Eliquis 10 mg 1 pill twice daily for 7 days then 5 mg 1 pill twice daily. Continue to monitor on continuous bladder irrigation. Continue to wean off irrigation. Anticipate continued improvement. Case discussed in detail with nephrology, urology, cardiology, and hematology. Case reviewed in detail with patient yesterday along with sister. Hematology recommends aspirin and Eliquis at discharge. Continue with physical therapy. Patient history reviewed. Patient with history of DVT, PE in 2005 after his 5 vessel CABG. Patient had been on aspirin and Coumadin since that time(2005), but his behavioral health counselor in [place] in February 2021 changed his medication to aspirin and Plavix. He had been without aspirin and Plavix since March 2021 since moving to the area. At discharge patient will continue with aspirin and Eliquis at discharge as recommended by hematology. Patient will need to continue with aspirin and Eliquis indefinitely. Hematuria with suprapubic pain, urinary retention: Patient improved. Continue with bladder irrigation system. Continue to wean off irrigation. We will see how he does with Eliquis over the next 24 hours. Continue with urology recommendations including keeping irrigation to keep urine light pink to clear. Urology also recommended belladonna opioid suppository per rectum every 8 hours for bladder spasm. Hold if with increase sedation. Continue IV antibiotic therapy. Await urine culture results. Patient may require cystoscopy within the next 2 to 3 weeks pending improvement of his current situation. If hematuria persists cystoscopy may be required during this hospitalization. Patient will require Ortiz catheter at discharge. Ortiz catheter will need to be in place for at least 7 days. Recent hospitalization for pyelonephritis with urine culture negative: Urine culture obtained. Await findings. Patient remains on IV Rocephin. BPH: Recent CT scan showed moderate diffuse bladder wall thickening suggestive of cystitis along with mild prostamegaly. Continue with urology recommendations. Flomax 0.4 mg 1 pill twice daily. Patient will have Ortiz catheter for at least 7 days. DM Type 2 insulin dependent: Hemoglobin A1c 9.9. Patient on basal insulin. Continue to monitor and adjust. Accu-Cheks in place. Sliding scale in place. Acute on chronic Renal Disease, Stage 3: Renal function stable. Patient consider discontinuing IV fluids today if taking good oral intake. Will discuss with nephrology. Future medications need to be renally dosed. Recommend no further use of an ulcer anti-inflammatories. Hypothyroidism: TSH and free T4 are within normal range. Continue levothyroxine 50 mcg daily CAD with history of stents/CABG: Previously on aspirin and Plavix. Patient previously seen in [place] with cardiology. Patient with history of heart catheterization and stent in 2005. That same year he had 5 vessel CABG. Case discussed in detail with cardiology. Cardiology recommends Eliquis over Xarelto at discharge due to his chronic renal disease. Echo shows ejection fraction 52%. No need for Plavix at discharge. Continue with above recommendations of aspirin and Eliquis at discharge. Hypertension: We will decrease carvedilol to 6.25 mg 1 pill twice daily. Will monitor and adjust medication. Chronic diastolic CHF: Continue to hold Lasix at this time. Continue IV fluids. Ejection fraction 52%. Patient remains on room air. If taking good oral intake will discontinue IV fluids and restart Lasix. Chronic back pain with DM Neuropathy: Continue with medication for pain. Continue Flexeril as needed. Continue oxycodone as needed. Constipation: Stool softener provided. Depression with anxiety: Continue Celexa 40 mg daily, Wellbutrin 300 mg daily, and Seroquel 150 mg at bedtime GERD: Continue with Protonix 40 mg daily CODE STATUS: Full code DVT prophylaxis: Jason Advance care minutes: Home at discharge Time Spent Managing Pts Care (In Minutes): 55
[2021-10-15 06:16] LABS: Absolute Lymphocytes (CBC) 3.6 K/uL (0.7-4.9); Hematocrit 33.9 % (39.6-49.0); Lymphocytes % 30.5 % (15.3-44.8); MPV 8.1 fL (7.6-11.3); RBC Red Blood Cell Count 3.59 M/uL (4.33-5.43)
[2021-10-15] MEDS: LEVOTHYROXINE SOD 0.05 MG TABLET PO SCH (06:21)
[2021-10-15 06:47] LABS: Magnesium 2.5 mg/dL (1.8-2.4); Potassium 4.3 mmol/L (3.5-5.1)
[2021-10-15] MEDS: INSULIN -REGULAR HUMAN 50 UNIT/0.5 ML ML SQ SCH ×4 (07:30→21:01)
[2021-10-15] MEDS: PANTOPRAZOLE 40MG TABLET PO SCH (08:30)
[2021-10-15] MEDS: TAMSULOSIN 0.4 MG SR CAP PO SCH ×2 (09:00→20:56)
[2021-10-15] MEDS: VARDENAFIL HCL 20 MG PO SCH (09:00)
[2021-10-15] MEDS: DOCUSATE NA 100 MG CAP PO SCH ×2 (09:00→20:58)
[2021-10-15] MEDS: LACTOBACILLUS/ACIDOPHILUS TAB PO SCH ×3 (09:00→21:00)
[2021-10-15] MEDS ORDERED: carvediloL 12.5 MG TAB PO SCH (09:00)
[2021-10-15] MEDS: INSULIN GLARGINE 100 UNIT/ML SQ SCH ×2 (09:00→21:00)
[2021-10-15] MEDS: carvediloL 12.5 MG TAB PO SCH ×2 (09:00→20:59)
[2021-10-15] MEDS: NACL 0.9% IRR SOLN 2,000 ML IRR SCH ×2 (09:06→11:04)
[2021-10-15] MEDS: BUPROPION HCL XL 150 MG TAB PO SCH (09:08)
[2021-10-15] MEDS: CEFTRIAXONE 1,000 MG in NA CHLORIDE 0.9% 50 ML IVPB SCH (09:08)
[2021-10-15] MEDS: DOCOSAHEXANOIC AC/EPA 1000 MG PO SCH (09:09)
[2021-10-15] MEDS: FUROSEMIDE 40 MG TABLET PO SCH (09:09)
[2021-10-15] MEDS: CITALOPRAM 10 MG TABLET PO SCH (09:10)
[2021-10-15] MEDS: APIXABAN 5 MG TABLET PO SCH ×2 (09:10→20:55)
[2021-10-15] MEDS: VITAMIN D 5,000 UNIT CAP PO SCH (09:10)
[2021-10-15 11:40] VITALS: O2SAT 98
[2021-10-15] MEDS: NA CHLORIDE 0.9% 1,000 ML IV SCH ×3 (14:26→21:24)
[2021-10-15] MEDS: CYCLOBENZAPRINE 10 MG TAB PO PRN ×2 (14:30→21:14)
--- NOTE | 2021-10-15 16:12 | CON ---
The patient admitted to Dr. Flannery on 10/09/2021. He was admitted and I was consulted for history of CAD, CHF, and bilateral DVT. History Of Present Illness: Mr. Jordan is 61, has a history of CHF, CAD status post CABG, has a histor y of DVT with IVC filter, chronic renal disease, and hematuria. He is very stable from a cardiac sta ndpoint. He denied any chest pain, nausea, vomiting, diaphoresis, PND, orthopnea, pedal edema, palpi tation, or syncope. He is presently on aspirin, Coreg, Wellbutrin, Celexa, Nexium, Lasix, Zestril, i nsulin, and thyroid, which is very appropriate therapy for CAD and CHF. I will discuss the case furt her regarding his anticoagulation as far as Xarelto or Eliquis. He may be a better candidate for Guerline charlie in the long run with a creatinine of 1.47. Past Medical History: As stated above. Allergies: NONE. Review of Systems: Negative. Social History: Negative. Family History: Negative. Medications: Listed earlier. Physical Examination: His physical examination, which was done by Dr. Flannery and Dr. Tabares separately is noted and is unrem arkable without any evidence of acute CHF. Impression: My impression is that he has, 1.Deep vein thrombosis, status post inferior vena cava filter. 2.Chronic congestive heart failure, probably diastolic. 3.Coronary artery disease, status post coronary artery bypass graft. 4.Chronic renal disease. 5.Dyslipidemia. 6.Hematuria. 7.Gastroesophageal reflux disease. 8.Depression and anxiety. 9.Hypothyroidism. I agree with his present regimen fully. He is in appropriate therapy for CHF, CAD, dyslipidemia, and hypertension. Again, in the long run, I think he should be on low-dose Eliquis because of his renal insufficiency. He can go home whenever it is okay with Dr. Flannery. I will be happy to see him in t he office down the road. CASSIDY/LISA Voice ID: [id number] Report ID: [id number]
--- NOTE | 2021-10-15 16:57 | PN ---
Date of Progress Note: 10/15/2021 Subjective: The patient was seen and examined. He reports that his urine is doing much better. His hematuria is resolved. Physical Examination: Vital Signs: Have been reviewed and are stable. General: He appears in no acute distress. Lungs: Clear to auscultation. Abdomen: Soft and nontender. : Ortiz catheter was noted with clear urine. Laboratory Data: At this time showing sodium of 135, potassium of 4.3, chloride of 107, BUN of 26, a nd creatinine of 1.46. CBC showing WBC count of 11.7, hemoglobin of 11.3, hematocrit 33.9, and plate let count of 268. Impression: 1.Acute on chronic renal insufficiency, currently with underlying diabetic nephropathy, currently wi th stable renal function. 2.Acute bilateral lower extremity DVT complicated with history of DVT and PE. The patient is being transitioned from heparin to Eliquis. Monitor hemoglobin levels closely. 3.Hematuria with suprapubic pain and urinary retention. The patient is due to be followed by Urolog y as outpatient. His hematuria is resolving. Continuous bladder irrigation is also improving. 4.BPH, currently with Ortiz. 5.Type 2 diabetes and is insulin dependent. Continue insulin and monitor blood sugars closely. Plan: The patient's renal function is overall stable. His hematuria is resolving. He is being manjarrez sitioned off continuous bladder irrigation. Has been transitioned to Eliquis for DVT and he also already has an IVC filter in place. Plan was discussed with Dr. Flannery. NADINE/LISA Voice ID: [id number] Report ID: [id number]
[2021-10-15] MEDS: ATORVASTATIN 40 MG TAB PO SCH (20:56)
[2021-10-15] MEDS: QUETIAPINE 100MG TAB PO SCH (20:57)
[2021-10-15] MEDS: ASPIRIN EC 81 MG TAB PO SCH (20:59)
[2021-10-15] MEDS: Oxycodone HCl/Acetaminophen 1 TAB TAB PO PRN (21:14)
[2021-10-16] MEDS: NA CHLORIDE 0.9% 1,000 ML IV SCH ×9 (00:20→20:54)
--- NOTE | 2021-10-16 05:49 | P.PN ---
Subjective Date of Service: 10/16/21 Primary Care Provider: none, From [place] Chief Complaint: bilateral LE DVT Subjective: Improving, Doing well Physical Examination - Vital Signs Temperature: 97.8 F Blood Pressure: 100/50 Pulse: 65 Respirations: 18 Pulse Ox (%): 95 Assessment & Plan Discharge Plan: Home Plan to discharge in: 72 Hours Physician Review Additional Text: COVID: COVID Venous doppler: COMPARISON: No comparisons FINDINGS: Color Doppler, grayscale, and spectral analysis was performed. Incomplete compressibility of the right common femoral vein, greater saphenous vein, femoral vein, popliteal vein consistent with the presence of occlusive thrombus. Partial compressibility of the posterior tibial vein consistent with nonocclusive thrombus. The left common femoral vein, greater saphenous vein, femoral vein are partially compressible consistent with nonocclusive thrombus. The popliteal vein and posterior tibial veins are compressible. IMPRESSION: Positive for bilateral deep venous thrombosis, right greater than left. Initial CXR: COMPARISON: No comparisons FINDINGS: Lines: None. Lungs: No evidence of edema or pneumonia. Pleural: No significant pleural effusions or pneumothorax. Cardiac: Cardiomegaly. Sternotomy. Bones: No acute fractures. IMPRESSION: No acute cardiopulmonary disease. CT scan 10/06/2021: COMPARISON: None. TECHNIQUE: Serial axial CT images were obtained from above the diaphragm through the pubic symphysis without administration of intravenous or oral contrast. All CT scans are performed using dose optimization techniques as appropriate, including automated exposure control and/or standardized protocols, where dose is adjusted for indication for exam and body habitus. FINDINGS: Thoracic: No significant abnormality. Hepatobiliary: No obvious concerning hepatic lesion identified in the absence of intravenous contrast. The gallbladder is unremarkable. No biliary ductal dilatation. Pancreas: Unremarkable. Spleen: Unremarkable. Gastrointestinal: No evidence of bowel obstruction or perienteric inflammation. The appendix is nonvisualized, but there are no pericecal inflammatory changes. Adrenals: No abnormality identified in either adrenal gland. Renal: Mild bilateral perinephric fat stranding. No obvious parenchymal abnormality in either kidney in the absence of intravenous contrast. No hydronephrosis or urolithiasis. Bladder/Reproductive: Moderate diffuse bladder wall thickening with surrounding fat stranding. Mild prostatomegaly. Vascular/Lymphatics: No lymphadenopathy identified by CT size criteria. Abdominal aorta is normal in caliber. Infrarenal IVC filter in place. Moderate calcific atherosclerosis. Musculoskeletal: No concerning osseous lesion identified. Prominent disc height loss at L5-S1. Fluid / peritoneum: No significant free fluid. No free intraperitoneal air identified. IMPRESSION: 1. Moderate diffuse bladder wall thickening with surrounding fat stranding, suggestive of cystitis. Consider follow-up imaging or direct visualization to ensure resolution and exclude underlying malignancy. 2. Mild bilateral perinephric fat stranding, likely sequela of remote prior insult. No hydronephrosis or urolithiasis. 3. Mild prostatomegaly. Bladder US: COMPARISON: No comparisons FINDINGS: Transabdominal sonographic evaluation of the urinary bladder was performed. Patient was unable to void due to pain. Along the posterior wall of the urinary bladder there is a 2.5 cm rounded intermediate to hyperechoic mass. This was not mobile. This could be a true mass of the bladder or possible focal blood clot. No other bladder mass or abnormality. No bladder stones seen. Bladder wall overall is not thickened. IMPRESSION: Approximately 2.5 centimeter rounded mass along the posterior wall of the bladder. Bladder mass is suspected though adherent blood clot can have a similar appearance. ECHO: MEASUREMENTS (cm) DIASTOLIC (NORMALS) SYSTOLIC (NORMALS) IVSd 1.3 (0.6-1.2) LA Diam 5.3 (1.9-4.0) LVEF 52% LVIDd 5.6 (3.5-5.7) LVIDs 4.1 (2.0-3.5) %FS 27% LVPWd 1.3 (0.6-1.2) Ao Diam 3.3 (2.0-3.7) 2 DIMENSIONAL ASSESSMENT: RIGHT ATRIUM: NORMAL LEFT ATRIUM: NORMAL RIGHT VENTRICLE: NORMAL LEFT VENTRICLE: LEFT VENTRICULAR HYPERTROPHY TRICUSPID VALVE: NORMAL MITRAL VALVE: NORMAL PULMONIC VALVE: NORMAL AORTIC VALVE: NORMAL PERICARDIAL EFFUSION: NONE AORTIC ROOT: NORMAL LEFT VENTRICULAR WALL MOTION: DECREASED LEFT VENTRICULAR COMPLIANCE. DOPPLER/COLOR FLOW: DECREASED LEFT VENTRICULAR COMPLIANCE. MILD TRICUSPID REGURGITATION. COMMENTS: MILD TRICUSPID REGURGITATION. DECREASED LEFT VENTRICULAR COMPLI ANCE. LEFT VENTRICULAR HYPERTROPHY. NORMAL EJECTION FRACTION. Physical exam GEN: Alert oriented. No acute distress. Patient continues to improve HEENT: Normal conjunctiva, sclera anicteric CV: Regular rate and rhythm. Pulm: Clear to auscultation. On room air. ABD: Soft, nontender, nondistended Integumentary: Edema to the right lower extremity remains improved. Better movement noted. Neuro: Alert oriented. Genital: Three-way catheter with irrigation system in place. Urine appears clear. Impression: Acute bilateral lower extremity DVT (R>L) complicated with history of DVT/PE, prior IVC filter in place, and poor compliance Hematuria with suprapubic pain, urinary retention Recent hospitalization for pyelonephritis with urine culture negative BPH DM Type 2 insulin dependent Acute on chronic Renal Disease, Stage 3 Hypothyroidism CAD with history of stents/CABG Hypertension Chronic back pain with DM Neuropathy Plan: Acute bilateral lower extremity DVT (R>L) complicated with history of DVT/PE, prior IVC filter in place, and poor compliance: Patient continues to improve. Less swelling noted to the right lower extremity. Patient now on Eliquis 10 mg 1 pill twice daily. This will be transitioned to 5 mg twice daily after 6 more days. Continue to monitor on continuous bladder irrigation. Continue to wean off irrigation. As he continues three-way catheter can be switched over to a Ortiz catheter. Encourage ambulation. Anticipate continued improvement. Case discussed in detail with nephrology, urology, cardiology, and hematology. Specialists agree with aspirin and Eliquis at discharge. Anticipate likely discharge in the next 3 days. I will turn to service over to the hospitalist team tomorrow. I will go over the plan of care with him. Patient history reviewed. Patient with history of DVT, PE in 2005 after his 5 vessel CABG. 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 He had been without aspirin and Plavix since March 2021 s karri moving to the area. At discharge patient will continue with aspirin and Eliquis at discharge as recommended by team of specialists. Patient will need to continue with aspirin and Eliquis indefinitely. Hematuria with suprapubic pain, urinary retention: Patient continues to improve. Continue bladder irrigation system. Urine clear. Once irrigation titrated off then will transition to Ortiz catheter. Continue belladonna opioid suppository per rectum every 8 hours for bladder spasm. Hold if with increase sedation. Continue IV antibiotic therapy. Await urine culture results. Patient may require cystoscopy within the next 2 to 3 weeks pending improvement of his current situation. If hematuria persists cystoscopy may be required during this hospitalization. Patient will require Ortiz catheter at discharge. Ortiz catheter will need to be in place for at least 7 days. This can be followed up as an outpatient. Recent hospitalization for pyelonephritis with urine culture negative: Urine culture obtained. Await findings. Patient remains on IV Rocephin. BPH: Recent CT scan showed moderate diffuse bladder wall thickening suggestive of cystitis along with mild prostamegaly. Continue with urology recommendations. Flomax 0.4 mg 1 pill twice daily. Patient will have Ortiz catheter for at least 7 days. DM Type 2 insulin dependent: Hemoglobin A1c 9.9. Patient on basal insulin. Continue to monitor and adjust. Accu-Cheks in place. Sliding scale in place. Acute on chronic Renal Disease, Stage 3: Renal function back to baseline. Discontinue IV fluids. Continue to discuss with nephrology. Future medications need to be renally dosed. Recommend no further use of an ulcer anti- inflammatories. Hypothyroidism: TSH and free T4 are within normal range. Continue levothyroxine 50 mcg daily CAD with history of stents/CABG: Previously on aspirin and Plavix. Patient previously seen in [place] with cardiology. Patient with history of heart catheterization and stent in 2005. That same year he had 5 vessel CABG. Case discussed in detail with cardiology. Cardiology recommends Eliquis over Xarelto at discharge due to his chronic renal disease. Echo shows ejection fraction 52%. No need for Plavix at discharge. Continue with above recommendations of aspirin and Eliquis at discharge. Hypertension: We will decrease carvedilol to 6.25 mg 1 pill twice daily. Will monitor and adjust medication. Chronic diastolic CHF: Continue to hold Lasix at this time. DC IV fluids. Ejection fraction 52%. Patient remains on room air. Consider restarting Lasix in the next couple of days Chronic back pain with DM Neuropathy: Continue with medication for pain. Continue Flexeril as needed. Continue oxycodone as needed. Constipation: Stool softener provided. Depression with anxiety: Continue Celexa 40 mg daily, Wellbutrin 300 mg daily, and Seroquel 150 mg at bedtime GERD: Continue with Protonix 40 mg daily CODE STATUS: Full code DVT prophylaxis: Guerlinequpatricia Advance care [id number] minutes: Home at discharge Time Spent Managing Pts Care (In Minutes): 55
[2021-10-16] MEDS: LEVOTHYROXINE SOD 0.05 MG TABLET PO SCH (06:00)
[2021-10-16 06:21] LABS: Absolute Lymphocytes (CBC) 2.6 K/uL (0.7-4.9); Hematocrit 32.2 % (39.6-49.0); Lymphocytes % 27.3 % (15.3-44.8); MPV 7.8 fL (7.6-11.3); RBC Red Blood Cell Count 3.46 M/uL (4.33-5.43)
[2021-10-16 06:43] LABS: Magnesium 2.3 mg/dL (1.8-2.4); Potassium 3.7 mmol/L (3.5-5.1)
[2021-10-16] MEDS: PANTOPRAZOLE 40MG TABLET PO SCH (07:30)
[2021-10-16] MEDS: INSULIN -REGULAR HUMAN 50 UNIT/0.5 ML ML SQ SCH ×4 (08:37→20:49)
[2021-10-16] MEDS ORDERED: POTASSIUM CL SA 10 MEQ TAB PO ONE (09:00)
[2021-10-16] MEDS: TAMSULOSIN 0.4 MG SR CAP PO SCH ×2 (09:00→20:46)
[2021-10-16] MEDS: INSULIN GLARGINE 100 UNIT/ML SQ SCH ×2 (09:00→20:50)
[2021-10-16] MEDS: DOCUSATE NA 100 MG CAP PO SCH ×2 (09:00→20:54)
[2021-10-16] MEDS: LACTOBACILLUS/ACIDOPHILUS TAB PO SCH ×3 (09:00→20:48)
[2021-10-16] MEDS: VARDENAFIL HCL 20 MG PO SCH (09:00)
[2021-10-16] MEDS: FUROSEMIDE 40 MG TABLET PO SCH (09:29)
[2021-10-16] MEDS: CITALOPRAM 10 MG TABLET PO SCH (09:30)
[2021-10-16] MEDS: VITAMIN D 5,000 UNIT CAP PO SCH (09:30)
[2021-10-16] MEDS: APIXABAN 5 MG TABLET PO SCH ×2 (09:30→20:45)
[2021-10-16] MEDS: BUPROPION HCL XL 150 MG TAB PO SCH (09:30)
[2021-10-16] MEDS: DOCOSAHEXANOIC AC/EPA 1000 MG PO SCH (09:30)
[2021-10-16] MEDS: carvediloL 12.5 MG TAB PO SCH ×2 (09:31→20:46)
[2021-10-16] MEDS: CEFTRIAXONE 1,000 MG in NA CHLORIDE 0.9% 50 ML IVPB SCH (09:32)
[2021-10-16] MEDS ORDERED: FLEET ENEMA ADULT PR PRN (14:23)
[2021-10-16] MEDS: CYCLOBENZAPRINE 10 MG TAB PO PRN (20:43)
[2021-10-16] MEDS: QUETIAPINE 100MG TAB PO SCH (20:44)
[2021-10-16] MEDS: ATORVASTATIN 40 MG TAB PO SCH (20:45)
[2021-10-16] MEDS: Oxycodone HCl/Acetaminophen 1 TAB TAB PO PRN (20:45)
[2021-10-16] MEDS: ASPIRIN EC 81 MG TAB PO SCH (20:46)
[2021-10-17] MEDS: NA CHLORIDE 0.9% 1,000 ML IV SCH ×6 (00:07→17:27)
[2021-10-17] MEDS: LEVOTHYROXINE SOD 0.05 MG TABLET PO SCH (05:34)
[2021-10-17 06:05] LABS: Absolute Lymphocytes (CBC) 2.9 K/uL (0.7-4.9); Hematocrit 32.5 % (39.6-49.0); Lymphocytes % 25.8 % (15.3-44.8); MPV 7.6 fL (7.6-11.3); RBC Red Blood Cell Count 3.49 M/uL (4.33-5.43)
[2021-10-17 06:17] LABS: Magnesium 2.1 mg/dL (1.8-2.4); Potassium 3.7 mmol/L (3.5-5.1)
[2021-10-17] MEDS: PANTOPRAZOLE 40MG TABLET PO SCH (07:29)
[2021-10-17] MEDS: INSULIN -REGULAR HUMAN 50 UNIT/0.5 ML ML SQ SCH ×4 (07:30→20:37)
[2021-10-17] MEDS: INSULIN GLARGINE 100 UNIT/ML SQ SCH ×2 (09:00→20:36)
[2021-10-17] MEDS: LACTOBACILLUS/ACIDOPHILUS TAB PO SCH ×3 (09:00→20:40)
[2021-10-17] MEDS ORDERED: POTASSIUM CL SA 10 MEQ TAB PO ONE (09:00)
[2021-10-17] MEDS: BUPROPION HCL XL 150 MG TAB PO SCH (09:00)
[2021-10-17] MEDS: VARDENAFIL HCL 20 MG PO SCH (09:00)
[2021-10-17] MEDS: TAMSULOSIN 0.4 MG SR CAP PO SCH ×2 (09:00→20:41)
[2021-10-17] MEDS: CEFTRIAXONE 1,000 MG in NA CHLORIDE 0.9% 50 ML IVPB SCH (09:27)
[2021-10-17] MEDS: DOCOSAHEXANOIC AC/EPA 1000 MG PO SCH (09:29)
[2021-10-17] MEDS: APIXABAN 5 MG TABLET PO SCH ×2 (09:29→20:40)
[2021-10-17] MEDS: DOCUSATE NA 100 MG CAP PO SCH ×2 (09:29→20:41)
[2021-10-17] MEDS: CITALOPRAM 10 MG TABLET PO SCH (09:29)
[2021-10-17] MEDS: FUROSEMIDE 40 MG TABLET PO SCH (09:29)
[2021-10-17] MEDS: carvediloL 12.5 MG TAB PO SCH ×2 (09:30→20:37)
[2021-10-17] MEDS: VITAMIN D 5,000 UNIT CAP PO SCH (09:32)
--- NOTE | 2021-10-17 18:46 | P.PN ---
Subjective Date of Service: 10/17/21 Subjective: No new changes, No C/O voiced patient with hematuria; still on anticoagulation Review of Systems 10-point ROS is otherwise unremarkable Physical Examination - Vital Signs Temperature: 97.4 F Blood Pressure: 129/55 Pulse: 66 Respirations: 16 Pulse Ox (%): 96 - Physical Exam General: Alert, In no apparent distress HEENT: Atraumatic, PERRLA, EOMI Neck: Supple, JVD not distended Respiratory: Clear to auscultation bilaterally, Normal air movement Cardiovascular: Regular rate/rhythm, Normal S1 S2 Gastrointestinal: Normal bowel sounds, No tenderness Musculoskeletal: No tenderness Integumentary: No rashes Neurological: Normal speech, Normal tone, Normal affect Lymphatics: No axilla or inguinal lymphadenopathy - Studies Medications List Reviewed: Yes Assessment & Plan - Problems (Diagnosis) (1) Hematuria Current Visit: Yes Status: Acute (2) Chronic kidney disease, stage III (moderate) Current Visit: Yes Status: Acute (3) DVT, bilateral lower limbs Current Visit: Yes Status: Acute Qualifiers: Affected thrombotic vein of extremity: unspecified vein of extremity Chronicity: acute Qualified Code(s): I82.403 - Acute embolism and thrombosis of unspecified deep veins of lower extremity, bilateral (4) Acute renal failure superimposed on stage 3 chronic kidney disease Current Visit: No Status: Acute (5) CAD (coronary artery disease) Current Visit: No Status: Chronic Qualifiers: Coronary Disease-Associated Artery/Lesion type: bypass graft [place] vs. transplanted heart: [place] heart Associated angina: without angina Qualified Code(s): I25.810 - Atherosclerosis of coronary artery bypass graft(s) without angina pectoris (6) Hypothyroid Current Visit: No Status: Chronic Qualifiers: (7) T2DM (type 2 diabetes mellitus) Current Visit: No Status: Chronic Qualifiers: Diabetes mellitus mcfp insulin use: with mcfp use Diabetes mellitus complication status: with kidney complications Diabetes mellitus complication detail: with chronic kidney disease Chronic kidney disease stage 3 subtype: stage 3b (GFR 30-44) - Advance Directives Does patient have a Living Will: No Does patient have a Durable POA for Healthcare: No
[2021-10-17] MEDS: Oxycodone HCl/Acetaminophen 1 TAB TAB PO PRN (20:39)
[2021-10-17] MEDS: CYCLOBENZAPRINE 10 MG TAB PO PRN (20:40)
[2021-10-17] MEDS: ASPIRIN EC 81 MG TAB PO SCH (20:41)
[2021-10-17] MEDS: QUETIAPINE 100MG TAB PO SCH (20:41)
[2021-10-17] MEDS: ATORVASTATIN 40 MG TAB PO SCH (20:45)
[2021-10-17] MEDS ORDERED: LACTULOSE 20 GM/30 ML UCUP PO ONE (21:01)
--- NOTE | 2021-10-17 21:03 | P.PN ---
Date of Service: 10/17/21 Vital Signs Temp Pulse Resp BP Pulse Ox 97.4 F 64 17 133/65 96 10/17/21 20:00 10/17/21 20:37 10/17/21 20:00 10/17/21 20:37 10/17/21 20:00 Medications Apixaban (Apixaban 5 Mg Tablet) 10 mg PO BID [facility] Last Admin: 10/17/21 20:40 Dose: 10 mg Documented by: Aspirin (Aspirin Ec 81 Mg Tab) 81 mg PO BEDTIME [facility] Last Admin: 10/17/21 20:41 Dose: 81 mg Documented by: Atorvastatin Calcium (Atorvastatin 40 Mg Tab) 40 mg PO BEDTIME [facility] Last Admin: 10/17/21 20:45 Dose: 40 mg Documented by: Belladonna Alkaloids/Opium (Opium/Belladonna Suppos (30-16.2 Mg)) 1 supp ID Q8H PRN PRN Reason: Pain scale 5-7 (Moderate) Last Admin: 10/14/21 19:37 Dose: 1 supp Documented by: Bupropion HCl (Bupropion Hcl Xl 150 Mg Tab) 300 mg PO DAILY [facility] Last Admin: 10/17/21 09:00 Dose: 300 mg Documented by: Calcium Carbonate/Glycine (Calcium Carbonate 500 Mg Tab) 1,000 mg PO TID PRN PRN Reason: INDIGESTION Carvedilol (Carvedilol 12.5 Mg Tab) 6.25 mg PO BID [facility] Last Admin: 10/17/21 20:37 Dose: 6.25 mg Documented by: Cholecalciferol (Vitamin D 5,000 Unit Cap) 5,000 unit PO DAILY [facility] Last Admin: 10/17/21 09:32 Dose: 5,000 unit Documented by: Citalopram Hydrobromide (Citalopram 10 Mg Tablet) 40 mg PO DAILY [facility] Last Admin: 10/17/21 09:29 Dose: 40 mg Documented by: Cyclobenzaprine HCl (Cyclobenzaprine 10 Mg Tab) 10 mg PO TID PRN PRN Reason: MUSCLE SPASMS Last Admin: 10/17/21 20:40 Dose: 10 mg Documented by: Dextrose (D50w 25 Gm/50 Ml Syringe) 12.5 gm IV PRN PRN; Protocol PRN Reason: HYPOGLYCEMIA Docusate Sodium (Docusate Na 100 Mg Cap) 100 mg PO BID [facility] Last Admin: 10/17/21 20:41 Dose: 100 mg Documented by: Fish Oil (Docosahexanoic Ac/Epa 1000 Mg) 2,000 mg PO DAILY [facility] Last Admin: 10/17/21 09:29 Dose: 2,000 mg Documented by: Furosemide (Furosemide 40 Mg Tablet) 40 mg PO DAILY [facility] Last Admin: 10/17/21 09:29 Dose: 40 mg Documented by: Glucagon (Glucagon 1 Mg/Vial) 1 mg IM 1X PRN; Protocol PRN Reason: HYPOGLYCEMIA Home Med (Vardenafil Hcl [Levitra]) 20 mg PO DAILY [facility] Last Admin: 10/17/21 09:00 Dose: Not Given Documented by: Ceftriaxone Sodium 1,000 mg/ (Sodium Chloride) 50 mls @ 100 mls/hr IVPB DAILY [facility]; Protocol Last Admin: 10/17/21 09:27 Dose: 50 mls Documented by: Sodium Chloride (Ns 1000 Ml Ivbag) 1,000 mls @ 0 mls/hr IV UD [facility] Last Admin: 10/17/21 17:27 Dose: 1,000 mls Documented by: Insulin Glargine (Insulin Glargine 100 Unit/Ml) 20 unit SQ BID [facility] Last Admin: 10/17/21 20:36 Dose: 20 unit Documented by: Insulin Human Regular (Insulin -Regular Human 50 Unit/0.5 Ml Ml) 0 unit SQ ACHS [facility]; Protocol Last Admin: 10/17/21 20:37 Dose: 4 unit Documented by: Lactobacillus Acidoph/Bulgaricus (Lactobacillus/Acidophilus Tab) 1 tab PO TID [facility] Last Admin: 10/17/21 20:40 Dose: 1 tab Documented by: Levothyroxine Sodium (Levothyroxine Sod 0.05 Mg Tablet) 0.05 mg PO [id number] [facility] Last Admin: 10/17/21 05:34 Dose: 0.05 mg Documented by: Morphine Sulfate (Morphine 2 Mg/Ml Syr) 2 mg IV Q6H PRN PRN Reason: Pain scale 8-10 (Severe) Last Admin: 10/13/21 17:20 Dose: 2 mg Documented by: Nitroglycerin (Nitroglycerin 0.4 Mg/Tab) 0.4 mg SL SEECOM PRN PRN Reason: Chest Pain Ondansetron HCl (Ondansetron 4 Mg/2 Ml Vial) 4 mg IV Q6HP PRN PRN Reason: NAUSEA / VOMITING Oxycodone/Acetaminophen (Oxycodone Hcl/Acetaminophen 1 Tab Tab) 1 tab PO Q6H PRN PRN Reason: Pain scale 5-7 (Moderate) Last Admin: 10/17/21 20:39 Dose: 1 tab Documented by: Pantoprazole Sodium (Pantoprazole 40mg Tablet) 40 mg PO ACB [facility] Last Admin: 10/17/21 07:29 Dose: 40 mg Documented by: Quetiapine Fumarate (Quetiapine 100mg Tab) 150 mg PO BEDTIME [facility] Last Admin: 10/17/21 20:41 Dose: 150 mg Documented by: Sodium Chloride (Flush Normal Saline 10 Ml) 10 ml IV BID [facility] Last Admin: 10/17/21 20:37 Dose: 10 ml Documented by: Tamsulosin HCl (Tamsulosin 0.4 Mg Sr Cap) 0.4 mg PO BID [facility] Last Admin: 10/17/21 20:41 Dose: 0.4 mg Documented by: Tramadol HCl (Tramadol Hcl 50 Mg Tab) 50 mg PO TID PRN PRN Reason: Pain scale 5-7 (Moderate) Last Admin: 10/14/21 20:14 Dose: 50 mg Documented by: Assessment/ Plan: Nephrology No dyspnea No chest pain Feeling better. Constipated. No acute events overnight Vitals, medications, blood work and imaging reviewed in the chart General: In no apparent distress, Oriented x3, Cooperative HEENT: Atraumatic Neck: Supple Respiratory: Clear to auscultation bilaterally Cardiovascular: Regular rate/rhythm, Edema Gastrointestinal: Hypoactive, Tenderness Musculoskeletal: No clubbing, No contractures Integumentary: No rashes, No cyanosis Neurological: Normal speech Blood work reviewed in the chart. Imagings Data: EXAM DESCRIPTION: US - Urinary Bladder - 10/13/2021 3:54 pm CLINICAL HISTORY: Hematuria COMPARISON: No comparisons FINDINGS: Transabdominal sonographic evaluation of the urinary bladder was performed. Patient was unable to void due to pain. Along the posterior wall of the urinary bladder there is a 2.5 cm rounded intermediate to hyperechoic mass. This was not mobile. This could be a true mass of the bladder or possible focal blood clot. No other bladder mass or abnormality. No bladder stones seen. Bladder wall overall is not thickened. IMPRESSION: Approximately 2.5 centimeter rounded mass along the posterior wall of the bladder. Bladder mass is suspected though adherent blood clot can have a similar appearance. EXAM DESCRIPTION: US - Extrem Venous W Compress Guilherme - 10/09/2021 6:10 pm CLINICAL HISTORY: lower extremity pain COMPARISON: No comparisons FINDINGS: Color Doppler, grayscale, and spectral analysis was performed. Incomplete compressibility of the right common femoral vein, greater saphenous vein, femoral vein, popliteal vein consistent with the presence of occlusive thrombus. Partial compressibility of the posterior tibial vein consistent with nonocclusive thrombus. The left common femoral vein, greater saphenous vein, femoral vein are partially compressible consistent with nonocclusive thrombus. The popliteal vein and posterior tibial veins are compressible. IMPRESSION: Positive for bilateral deep venous thrombosis, right greater than left. EXAM DESCRIPTION: RAD - Chest Single View - 10/09/2021 4:56 pm CLINICAL HISTORY: weakness COMPARISON: No comparisons FINDINGS: Lines: None. Lungs: No evidence of edema or pneumonia. Pleural: No significant pleural effusions or pneumothorax. Cardiac: Cardiomegaly. Sternotomy. Bones: No acute fractures. Other: IMPRESSION: No acute cardiopulmonary disease. Conclusions/Impression: ALESSANDRA, improving CKD III -No NSAIDs Hyponatremia Hypocalcemia -Continue Vitamin D3 HTN with CKD -Continue Coreg LE Edema -Low sodium diet DM II with hyperglycemia -Continue Lantus -RISS Anemia in chronic illness Iron deficiency 12.2% -Monitor H&H -Consider iron deficiency Gross Hematuria Bladder Mass -Ortiz catheter with irrigation -Follow up with urology -Continue Flomax Case reviewed with Dr. Kinsey
[2021-10-18] MEDS: LEVOTHYROXINE SOD 0.05 MG TABLET PO SCH (05:03)
[2021-10-18 06:26] LABS: Absolute Lymphocytes (CBC) 2.3 K/uL (0.7-4.9); Hematocrit 32.6 % (39.6-49.0); Lymphocytes % 20.5 % (15.3-44.8); MPV 7.3 fL (7.6-11.3); RBC Red Blood Cell Count 3.53 M/uL (4.33-5.43)
[2021-10-18] MEDS: CYCLOBENZAPRINE 10 MG TAB PO PRN ×2 (06:34→22:08)
[2021-10-18] MEDS: Oxycodone HCl/Acetaminophen 1 TAB TAB PO PRN ×2 (06:34→22:08)
[2021-10-18 06:49] LABS: Protime INR 1.34
[2021-10-18 06:51] LABS: Albumin 2.4 g/dL (3.4-5.0); Bilirubin Total 0.4 mg/dL (0.2-1.0); Magnesium 1.9 mg/dL (1.8-2.4); Phosphorus 3.4 mg/dL (2.5-4.9); Potassium 3.7 mmol/L (3.5-5.1); Protein, Total 6.6 g/dL (6.4-8.2)
[2021-10-18] MEDS: INSULIN -REGULAR HUMAN 50 UNIT/0.5 ML ML SQ SCH ×4 (07:30→20:50)
[2021-10-18] MEDS: APIXABAN 5 MG TABLET PO SCH ×2 (08:39→20:45)
[2021-10-18] MEDS: FUROSEMIDE 40 MG TABLET PO SCH (08:39)
[2021-10-18] MEDS: VARDENAFIL HCL 20 MG PO SCH (08:39)
[2021-10-18] MEDS: BUPROPION HCL XL 150 MG TAB PO SCH (08:39)
[2021-10-18] MEDS: LACTOBACILLUS/ACIDOPHILUS TAB PO SCH ×3 (08:39→20:45)
[2021-10-18] MEDS: carvediloL 12.5 MG TAB PO SCH ×2 (08:40→20:48)
[2021-10-18] MEDS: TAMSULOSIN 0.4 MG SR CAP PO SCH ×2 (08:40→20:50)
[2021-10-18] MEDS: PANTOPRAZOLE 40MG TABLET PO SCH (08:41)
[2021-10-18] MEDS: DOCOSAHEXANOIC AC/EPA 1000 MG PO SCH (08:41)
[2021-10-18] MEDS: VITAMIN D 5,000 UNIT CAP PO SCH (08:42)
[2021-10-18] MEDS: CITALOPRAM 10 MG TABLET PO SCH (08:43)
[2021-10-18] MEDS: DOCUSATE NA 100 MG CAP PO SCH ×2 (08:43→20:45)
[2021-10-18] MEDS: INSULIN GLARGINE 100 UNIT/ML SQ SCH ×2 (08:44→20:51)
[2021-10-18] MEDS ORDERED: POTASSIUM CL SA 10 MEQ TAB PO ONE (09:00)
[2021-10-18] MEDS: LACTULOSE 20 GM/30 ML UCUP PO ONE ×2 (10:00→10:48)
[2021-10-18] MEDS: CEFTRIAXONE 1,000 MG in NA CHLORIDE 0.9% 50 ML IVPB SCH (10:32)
[2021-10-18] MEDS: NA CHLORIDE 0.9% 1,000 ML IV SCH (10:32)
[2021-10-18] MEDS ORDERED: FLEET ENEMA ADULT PR ONE (16:00)
[2021-10-18] MEDS: ASPIRIN EC 81 MG TAB PO SCH (20:45)
[2021-10-18] MEDS: ATORVASTATIN 40 MG TAB PO SCH (20:50)
--- NOTE | 2021-10-18 20:50 | P.PN ---
Date of Service: 10/18/21 Vital Signs Temp Pulse Resp BP Pulse Ox 97.6 F 63 18 125/60 99 10/18/21 16:00 10/18/21 16:00 10/18/21 16:00 10/18/21 16:00 10/18/21 16:00 Medications Apixaban (Apixaban 5 Mg Tablet) 10 mg PO BID [facility] Last Admin: 10/18/21 08:39 Dose: 10 mg Documented by: Aspirin (Aspirin Ec 81 Mg Tab) 81 mg PO BEDTIME [facility] Last Admin: 10/17/21 20:41 Dose: 81 mg Documented by: Atorvastatin Calcium (Atorvastatin 40 Mg Tab) 40 mg PO BEDTIME [facility] Last Admin: 10/17/21 20:45 Dose: 40 mg Documented by: Belladonna Alkaloids/Opium (Opium/Belladonna Suppos (30-16.2 Mg)) 1 supp SC Q8H PRN PRN Reason: Pain scale 5-7 (Moderate) Last Admin: 10/14/21 19:37 Dose: 1 supp Documented by: Bupropion HCl (Bupropion Hcl Xl 150 Mg Tab) 300 mg PO DAILY [facility] Last Admin: 10/18/21 08:39 Dose: 300 mg Documented by: Calcium Carbonate/Glycine (Calcium Carbonate 500 Mg Tab) 1,000 mg PO TID PRN PRN Reason: INDIGESTION Carvedilol (Carvedilol 12.5 Mg Tab) 6.25 mg PO BID [facility] Last Admin: 10/18/21 08:40 Dose: 6.25 mg Documented by: Cholecalciferol (Vitamin D 5,000 Unit Cap) 5,000 unit PO DAILY [facility] Last Admin: 10/18/21 08:42 Dose: 5,000 unit Documented by: Citalopram Hydrobromide (Citalopram 10 Mg Tablet) 40 mg PO DAILY [facility] Last Admin: 10/18/21 08:43 Dose: 40 mg Documented by: Cyclobenzaprine HCl (Cyclobenzaprine 10 Mg Tab) 10 mg PO TID PRN PRN Reason: MUSCLE SPASMS Last Admin: 10/18/21 06:34 Dose: 10 mg Documented by: Dextrose (D50w 25 Gm/50 Ml Syringe) 12.5 gm IV PRN PRN; Protocol PRN Reason: HYPOGLYCEMIA Docusate Sodium (Docusate Na 100 Mg Cap) 100 mg PO BID [facility] Last Admin: 10/18/21 08:43 Dose: 100 mg Documented by: Fish Oil (Docosahexanoic Ac/Epa 1000 Mg) 2,000 mg PO DAILY [facility] Last Admin: 10/18/21 08:41 Dose: 2,000 mg Documented by: Furosemide (Furosemide 40 Mg Tablet) 40 mg PO DAILY [facility] Last Admin: 10/18/21 08:39 Dose: 40 mg Documented by: Glucagon (Glucagon 1 Mg/Vial) 1 mg IM 1X PRN; Protocol PRN Reason: HYPOGLYCEMIA Home Med (Vardenafil Hcl [Levitra]) 20 mg PO DAILY [facility] Last Admin: 10/18/21 08:39 Dose: Not Given Documented by: Ceftriaxone Sodium 1,000 mg/ (Sodium Chloride) 50 mls @ 100 mls/hr IVPB DAILY [facility]; Protocol Last Admin: 10/18/21 10:32 Dose: 50 mls Documented by: Sodium Chloride (Ns 1000 Ml Ivbag) 1,000 mls @ 0 mls/hr IV UD [facility] Last Admin: 10/18/21 10:32 Dose: 1,000 mls Documented by: Insulin Glargine (Insulin Glargine 100 Unit/Ml) 20 unit SQ BID [facility] Last Admin: 10/18/21 08:44 Dose: 20 unit Documented by: Insulin Human Regular (Insulin -Regular Human 50 Unit/0.5 Ml Ml) 0 unit SQ ACHS [facility]; Protocol Last Admin: 10/18/21 17:19 Dose: 4 unit Documented by: Lactobacillus Acidoph/Bulgaricus (Lactobacillus/Acidophilus Tab) 1 tab PO TID [facility] Last Admin: 10/18/21 14:11 Dose: 1 tab Documented by: Levothyroxine Sodium (Levothyroxine Sod 0.05 Mg Tablet) 0.05 mg PO [id number] [facility] Last Admin: 10/18/21 05:03 Dose: 0.05 mg Documented by: Morphine Sulfate (Morphine 2 Mg/Ml Syr) 2 mg IV Q6H PRN PRN Reason: Pain scale 8-10 (Severe) Last Admin: 10/13/21 17:20 Dose: 2 mg Documented by: Nitroglycerin (Nitroglycerin 0.4 Mg/Tab) 0.4 mg SL SEECOM PRN PRN Reason: Chest Pain Ondansetron HCl (Ondansetron 4 Mg/2 Ml Vial) 4 mg IV Q6HP PRN PRN Reason: NAUSEA / VOMITING Oxycodone/Acetaminophen (Oxycodone Hcl/Acetaminophen 1 Tab Tab) 1 tab PO Q6H PRN PRN Reason: Pain scale 5-7 (Moderate) Last Admin: 10/18/21 06:34 Dose: 1 tab Documented by: Pantoprazole Sodium (Pantoprazole 40mg Tablet) 40 mg PO ACB [facility] Last Admin: 10/18/21 08:41 Dose: 40 mg Documented by: Quetiapine Fumarate (Quetiapine 100mg Tab) 150 mg PO BEDTIME [facility] Last Admin: 10/17/21 20:41 Dose: 150 mg Documented by: Sodium Chloride (Flush Normal Saline 10 Ml) 10 ml IV BID [facility] Last Admin: 10/18/21 08:44 Dose: 10 ml Documented by: Tamsulosin HCl (Tamsulosin 0.4 Mg Sr Cap) 0.4 mg PO BID [facility] Last Admin: 10/18/21 08:40 Dose: 0.4 mg Documented by: Tramadol HCl (Tramadol Hcl 50 Mg Tab) 50 mg PO TID PRN PRN Reason: Pain scale 5-7 (Moderate) Last Admin: 10/14/21 20:14 Dose: 50 mg Documented by: Assessment/ Plan: Nephrology No dyspnea No chest pain Feeling better. Constipated. No acute events overnight Vitals, medications, blood work and imaging reviewed in the chart General: In no apparent distress, Oriented x3, Cooperative HEENT: Atraumatic Neck: Supple Respiratory: Clear to auscultation bilaterally Cardiovascular: Regular rate/rhythm, Edema Gastrointestinal: Hypoactive, Tenderness Musculoskeletal: No clubbing, No contractures Integumentary: No rashes, No cyanosis Neurological: Normal speech Blood work reviewed in the chart. Imagings Data: EXAM DESCRIPTION: US - Urinary Bladder - 10/13/2021 3:54 pm CLINICAL HISTORY: Hematuria COMPARISON: No comparisons FINDINGS: Transabdominal sonographic evaluation of the urinary bladder was performed. Patient was unable to void due to pain. Along the posterior wall of the urinary bladder there is a 2.5 cm rounded intermediate to hyperechoic mass. This was not mobile. This could be a true mass of the bladder or possible focal blood clot. No other bladder mass or abnormality. No bladder stones seen. Bladder wall overall is not thickened. IMPRESSION: Approximately 2.5 centimeter rounded mass along the posterior wall of the bladder. Bladder mass is suspected though adherent blood clot can have a similar appearance. EXAM DESCRIPTION: US - Extrem Venous W Compress Guilherme - 10/09/2021 6:10 pm CLINICAL HISTORY: lower extremity pain COMPARISON: No comparisons FINDINGS: Color Doppler, grayscale, and spectral analysis was performed. Incomplete compressibility of the right common femoral vein, greater saphenous vein, femoral vein, popliteal vein consistent with the presence of occlusive thrombus. Partial compressibility of the posterior tibial vein consistent with nonocclusive thrombus. The left common femoral vein, greater saphenous vein, femoral vein are partially compressible consistent with nonocclusive thrombus. The popliteal vein and posterior tibial veins are compressible. IMPRESSION: Positive for bilateral deep venous thrombosis, right greater than left. EXAM DESCRIPTION: RAD - Chest Single View - 10/09/2021 4:56 pm CLINICAL HISTORY: weakness COMPARISON: No comparisons FINDINGS: Lines: None. Lungs: No evidence of edema or pneumonia. Pleural: No significant pleural effusions or pneumothorax. Cardiac: Cardiomegaly. Sternotomy. Bones: No acute fractures. Other: IMPRESSION: No acute cardiopulmonary disease. Conclusions/Impression: ALESSANDRA, improving CKD III -No NSAIDs Hyponatremia Hypocalcemia -Continue Vitamin D3 HTN with CKD -Continue Coreg LE Edema -Low sodium diet DM II with hyperglycemia -Continue Lantus -RISS Anemia in chronic illness Iron deficiency 12.2% -Monitor H&H -Consider iron deficiency Gross Hematuria Bladder Mass -Ortiz catheter with irrigation -Follow up with urology -Continue Flomax Constipation -Continue colace -Lactulose X1 -Agree with enema
[2021-10-18] MEDS: QUETIAPINE 100MG TAB PO SCH (20:53)
[2021-10-19] MEDS: LEVOTHYROXINE SOD 0.05 MG TABLET PO SCH (05:01)
[2021-10-19 05:47] LABS: Absolute Lymphocytes (CBC) 2.6 K/uL (0.7-4.9); Hematocrit 32.6 % (39.6-49.0); Lymphocytes % 23.3 % (15.3-44.8); MPV 7.4 fL (7.6-11.3); RBC Red Blood Cell Count 3.51 M/uL (4.33-5.43)
[2021-10-19 05:52] LABS: Potassium 3.7 mmol/L (3.5-5.1)
[2021-10-19] MEDS: INSULIN -REGULAR HUMAN 50 UNIT/0.5 ML ML SQ SCH ×4 (07:30→20:51)
[2021-10-19] MEDS: CEFTRIAXONE 1,000 MG in NA CHLORIDE 0.9% 50 ML IVPB SCH (08:50)
[2021-10-19] MEDS: APIXABAN 5 MG TABLET PO SCH ×2 (08:51→21:02)
[2021-10-19] MEDS: BUPROPION HCL XL 150 MG TAB PO SCH (08:52)
[2021-10-19] MEDS: DOCOSAHEXANOIC AC/EPA 1000 MG PO SCH (08:52)
[2021-10-19] MEDS: carvediloL 6.25 MG TAB PO SCH ×2 (08:52→21:02)
[2021-10-19] MEDS: PANTOPRAZOLE 40MG TABLET PO SCH (08:52)
[2021-10-19] MEDS: CITALOPRAM 10 MG TABLET PO SCH (08:52)
[2021-10-19] MEDS: LACTOBACILLUS/ACIDOPHILUS TAB PO SCH ×3 (08:52→21:02)
[2021-10-19] MEDS: DOCUSATE NA 100 MG CAP PO SCH ×2 (08:52→21:01)
[2021-10-19] MEDS: FUROSEMIDE 40 MG TABLET PO SCH (08:52)
[2021-10-19] MEDS: INSULIN GLARGINE 100 UNIT/ML SQ SCH ×2 (08:53→20:51)
[2021-10-19] MEDS: TAMSULOSIN 0.4 MG SR CAP PO SCH ×2 (08:53→21:00)
[2021-10-19] MEDS: VITAMIN D 5,000 UNIT CAP PO SCH (08:53)
[2021-10-19] MEDS: NA CHLORIDE 0.9% 1,000 ML IV SCH (08:54)
[2021-10-19] MEDS: VARDENAFIL HCL 20 MG PO SCH (08:54)
[2021-10-19] MEDS ORDERED: LACTULOSE 20 GM/30 ML UCUP PO ONE (10:32)
--- NOTE | 2021-10-19 11:45 | RAD REPORT ---
EXAM DESCRIPTION: RAD - Abdomen 1 View (KUB) - 10/19/2021 11:32 am CLINICAL HISTORY: f/u constipation COMPARISON: [facility] Protocol dated 10/06/2021 FINDINGS: Bowel gas pattern is non-specific. No obstruction, free air or pneumatosis. Air-filled no ndilated small bowel loops are identifiable. Patient has moderate stool volume filling but not dilati ng the colon from cecum to splenic flexure. The descending, sigmoid and rectum portions of the colon show no abnormal stool volume. IVC filter is in place. Scattered vascular calcifications are seen. No significant bony findings IMPRESSION: No obstruction, free air or emergent finding. Moderate stool volume fills the colon from cecum to splenic flexure.
[2021-10-19] MEDS: MORPHINE 2 MG/ML SYR IV PRN (13:25)
--- NOTE | 2021-10-19 20:49 | P.PN ---
Date of Service: 10/19/21 Vital Signs Temp Pulse Resp BP Pulse Ox 97.8 F 67 18 123/61 97 10/19/21 16:10 10/19/21 16:10 10/19/21 16:10 10/19/21 16:10 10/19/21 16:10 Medications Apixaban (Apixaban 5 Mg Tablet) 10 mg PO BID FORMERLY [facility], [facility] Last Admin: 10/19/21 08:51 Dose: 10 mg Documented by: Aspirin (Aspirin Ec 81 Mg Tab) 81 mg PO BEDTIME FOR[facility]LY [facility], [facility] Last Admin: 10/18/21 20:45 Dose: 81 mg Documented by: Atorvastatin Calcium (Atorvastatin 40 Mg Tab) 40 mg PO BEDTIME FOR[facility]LY [facility], [facility]1983 Last Admin: 10/18/21 20:50 Dose: 40 mg Documented by: Belladonna Alkaloids/Opium (Opium/Belladonna Suppos (30-16.2 Mg)) 1 supp OR Q8H PRN PRN Reason: Pain scale 5-7 (Moderate) Last Admin: 10/14/21 19:37 Dose: 1 supp Documented by: Bupropion HCl (Bupropion Hcl Xl 150 Mg Tab) 300 mg PO DAILY [facility], [facility] Last Admin: 10/19/21 08:52 Dose: 300 mg Documented by: Calcium Carbonate/Glycine (Calcium Carbonate 500 Mg Tab) 1,000 mg PO TID PRN PRN Reason: INDIGESTION Carvedilol (Carvedilol 6.25 Mg Tab) 6.25 mg PO BID [facility]LY [facility], [facility] Last Admin: 10/19/21 08:52 Dose: 6.25 mg Documented by: Cholecalciferol (Vitamin D 5,000 Unit Cap) 5,000 unit PO DAILY FOR[facility]LY [facility], [facility] Last Admin: 10/19/21 08:53 Dose: 5,000 unit Documented by: Citalopram Hydrobromide (Citalopram 10 Mg Tablet) 40 mg PO DAILY [facility] Last Admin: 10/19/21 08:52 Dose: 40 mg Documented by: Cyclobenzaprine HCl (Cyclobenzaprine 10 Mg Tab) 10 mg PO TID PRN PRN Reason: MUSCLE SPASMS Last Admin: 10/18/21 22:08 Dose: 10 mg Documented by: Dextrose (D50w 25 Gm/50 Ml Syringe) 12.5 gm IV PRN PRN; Protocol PRN Reason: HYPOGLYCEMIA Docusate Sodium (Docusate Na 100 Mg Cap) 100 mg PO BID [facility], [facility] Last Admin: 10/19/21 08:52 Dose: 100 mg Documented by: Fish Oil (Docosahexanoic Ac/Epa 1000 Mg) 2,000 mg PO DAILY [facility], [facility] Last Admin: 10/19/21 08:52 Dose: 2,000 mg Documented by: Furosemide (Furosemide 40 Mg Tablet) 40 mg PO DAILY [facility] Last Admin: 10/19/21 08:52 Dose: 40 mg Documented by: Glucagon (Glucagon 1 Mg/Vial) 1 mg IM 1X PRN; Protocol PRN Reason: HYPOGLYCEMIA Home Med (Vardenafil Hcl [Levitra]) 20 mg PO DAILY [facility], [facility] Last Admin: 10/19/21 08:54 Dose: Not Given Documented by: Sodium Chloride (Ns 1000 Ml Ivbag) 1,000 mls @ 0 mls/hr IV UD [facility], [facility]1983 Last Admin: 10/19/21 08:54 Dose: 1,000 mls Documented by: Insulin Glargine (Insulin Glargine 100 Unit/Ml) 20 unit SQ BID [facility], [facility] Last Admin: 10/19/21 08:53 Dose: 20 unit Documented by: Insulin Human Regular (Insulin -Regular Human 50 Unit/0.5 Ml Ml) 0 unit SQ ACHS [facility], [facility]; Protocol Last Admin: 10/19/21 17:22 Dose: 4 unit Documented by: Lactobacillus Acidoph/Bulgaricus (Lactobacillus/Acidophilus Tab) 1 tab PO TID [facility], [facility] Last Admin: 10/19/21 13:25 Dose: 1 tab Documented by: Levothyroxine Sodium (Levothyroxine Sod 0.05 Mg Tablet) 0.05 mg PO [id number] [facility], [facility] Last Admin: 10/19/21 05:01 Dose: 0.05 mg Documented by: Nitroglycerin (Nitroglycerin 0.4 Mg/Tab) 0.4 mg SL SEECOM PRN PRN Reason: Chest Pain Ondansetron HCl (Ondansetron 4 Mg/2 Ml Vial) 4 mg IV Q6HP PRN PRN Reason: NAUSEA / VOMITING Pantoprazole Sodium (Pantoprazole 40mg Tablet) 40 mg PO ACB [facility], [facility] Last Admin: 10/19/21 08:52 Dose: 40 mg Documented by: Quetiapine Fumarate (Quetiapine 100mg Tab) 150 mg PO BEDTIME [facility], [facility] Last Admin: 10/18/21 20:53 Dose: 150 mg Documented by: Sodium Chloride (Flush Normal Saline 10 Ml) 10 ml IV BID [facility], [facility] Last Admin: 10/19/21 08:53 Dose: 10 ml Documented by: Tamsulosin HCl (Tamsulosin 0.4 Mg Sr Cap) 0.4 mg PO BID [facility] Last Admin: 10/19/21 08:53 Dose: 0.4 mg Documented by: Tramadol HCl (Tramadol Hcl 50 Mg Tab) 50 mg PO TID PRN PRN Reason: Pain scale 5-7 (Moderate) Last Admin: 10/14/21 20:14 Dose: 50 mg Documented by: Assessment/ Plan: Nephrology No dyspnea No chest pain Reports worsening penile pain No acute events overnight Vitals, medications, blood work and imaging reviewed in the chart General: In no apparent distress, Oriented x3, Cooperative HEENT: Atraumatic Neck: Supple Respiratory: Clear to auscultation bilaterally Cardiovascular: Regular rate/rhythm, Edema Gastrointestinal: Hypoactive, Tenderness Musculoskeletal: No clubbing, No contractures Integumentary: No rashes, No cyanosis Neurological: Normal speech Blood work reviewed in the chart. Imagings Data: EXAM DESCRIPTION: US - Urinary Bladder - 10/13/2021 3:54 pm CLINICAL HISTORY: Hematuria COMPARISON: No comparisons FINDINGS: Transabdominal sonographic evaluation of the urinary bladder was performed. Patient was unable to void due to pain. Along the posterior wall of the urinary bladder there is a 2.5 cm rounded intermediate to hyperechoic mass. This was not mobile. This could be a true mass of the bladder or possible focal blood clot. No other bladder mass or abnormality. No bladder stones seen. Bladder wall overall is not thickened. IMPRESSION: Approximately 2.5 centimeter rounded mass along the posterior wall of the bladder. Bladder mass is suspected though adherent blood clot can have a similar appearance. EXAM DESCRIPTION: US - Extrem Venous W Compress Guilherme - 10/09/2021 6:10 pm CLINICAL HISTORY: lower extremity pain COMPARISON: No comparisons FINDINGS: Color Doppler, grayscale, and spectral analysis was performed. Incomplete compressibility of the right common femoral vein, greater saphenous vein, femoral vein, popliteal vein consistent with the presence of occlusive thrombus. Partial compressibility of the posterior tibial vein consistent with nonocclusive thrombus. The left common femoral vein, greater saphenous vein, femoral vein are partially compressible consistent with nonocclusive thrombus. The popliteal vein and posterior tibial veins are compressible. IMPRESSION: Positive for bilateral deep venous thrombosis, right greater than left. EXAM DESCRIPTION: RAD - Chest Single View - 10/09/2021 4:56 pm CLINICAL HISTORY: weakness COMPARISON: No comparisons FINDINGS: Lines: None. Lungs: No evidence of edema or pneumonia. Pleural: No significant pleural effusions or pneumothorax. Cardiac: Cardiomegaly. Sternotomy. Bones: No acute fractures. Other: IMPRESSION: No acute cardiopulmonary disease. Conclusions/Impression: ALESSANDRA, improving CKD III -No NSAIDs Hyponatremia Hypocalcemia -Continue Vitamin D3 HTN with CKD -Continue Coreg LE Edema -Low sodium diet DM II with hyperglycemia -Continue Lantus -RISS Anemia in chronic illness Iron deficiency 12.2% -Monitor H&H -Consider iron deficiency Gross Hematuria Bladder Mass -Ortiz catheter with irrigation -Follow up with urology -Continue Flomax Slow transit constipation -Continue colace -Lactulose X1
[2021-10-19] MEDS: ATORVASTATIN 40 MG TAB PO SCH (21:00)
[2021-10-19] MEDS: CYCLOBENZAPRINE 10 MG TAB PO PRN (21:01)
[2021-10-19] MEDS: ASPIRIN EC 81 MG TAB PO SCH (21:01)
[2021-10-19] MEDS: QUETIAPINE 100MG TAB PO SCH (21:02)
[2021-10-20] MEDS: LEVOTHYROXINE SOD 0.05 MG TABLET PO SCH (05:39)
[2021-10-20] MEDS: INSULIN -REGULAR HUMAN 50 UNIT/0.5 ML ML SQ SCH ×3 (08:37→15:56)
[2021-10-20] MEDS: PANTOPRAZOLE 40MG TABLET PO SCH (08:38)
[2021-10-20] MEDS: FUROSEMIDE 40 MG TABLET PO SCH (08:38)
[2021-10-20] MEDS: carvediloL 6.25 MG TAB PO SCH (08:38)
[2021-10-20] MEDS: TAMSULOSIN 0.4 MG SR CAP PO SCH (08:38)
[2021-10-20] MEDS: VITAMIN D 5,000 UNIT CAP PO SCH (08:38)
[2021-10-20] MEDS: DOCOSAHEXANOIC AC/EPA 1000 MG PO SCH (08:38)
[2021-10-20] MEDS: LACTOBACILLUS/ACIDOPHILUS TAB PO SCH ×2 (08:38→14:00)
[2021-10-20] MEDS: CITALOPRAM 10 MG TABLET PO SCH (08:38)
[2021-10-20] MEDS: BUPROPION HCL XL 150 MG TAB PO SCH (08:39)
[2021-10-20] MEDS: DOCUSATE NA 100 MG CAP PO SCH (08:39)
[2021-10-20] MEDS: VARDENAFIL HCL 20 MG PO SCH (08:39)
[2021-10-20] MEDS: INSULIN GLARGINE 100 UNIT/ML SQ SCH (08:40)
[2021-10-20] MEDS: APIXABAN 5 MG TABLET PO SCH (08:42)
[2021-10-20] MEDS ORDERED: LACTULOSE 20 GM/30 ML UCUP PO ONE (11:06)
[2021-10-20 12:23] VITALS: BP 118/59; TEMP 97.6
--- NOTE | 2021-10-20 20:31 | P.PN ---
Date of Service: 10/20/21 Vital Signs Temp Pulse Resp BP Pulse Ox 97.6 F 64 18 118/59 L 98 10/20/21 12:00 10/20/21 12:00 10/20/21 12:00 10/20/21 12:00 10/20/21 12:00 Assessment/ Plan: Nephrology No dyspnea No chest pain Persistent constipation. No acute events overnight Vitals, medications, blood work and imaging reviewed in the chart General: In no apparent distress, Oriented x3, Cooperative HEENT: Atraumatic Neck: Supple Respiratory: Clear to auscultation bilaterally Cardiovascular: Regular rate/rhythm, Edema Gastrointestinal: Hypoactive, Tenderness Musculoskeletal: No clubbing, No contractures Integumentary: No rashes, No cyanosis Neurological: Normal speech Blood work reviewed in the chart. Imagings Data: EXAM DESCRIPTION: US - Urinary Bladder - 10/13/2021 3:54 pm CLINICAL HISTORY: Hematuria COMPARISON: No comparisons FINDINGS: Transabdominal sonographic evaluation of the urinary bladder was performed. Patient was unable to void due to pain. Along the posterior wall of the urinary bladder there is a 2.5 cm rounded intermediate to hyperechoic mass. This was not mobile. This could be a true mass of the bladder or possible focal blood clot. No other bladder mass or abnormality. No bladder stones seen. Bladder wall overall is not thickened. IMPRESSION: Approximately 2.5 centimeter rounded mass along the posterior wall of the bladder. Bladder mass is suspected though adherent blood clot can have a similar appe arance. EXAM DESCRIPTION: US - Extrem Venous W Compress Guilherme - 10/09/2021 6:10 pm CLINICAL HISTORY: lower extremity pain COMPARISON: No comparisons FINDINGS: Color Doppler, grayscale, and spectral analysis was performed. Incomplete compressibility of the right common femoral vein, greater saphenous vein, femoral vein, popliteal vein consistent with the presence of occlusive thrombus. Partial compressibility of the posterior tibial vein consistent with nonocclusive thrombus. The left common femoral vein, greater saphenous vein, femoral vein are partially compressible consistent with nonocclusive thrombus. The popliteal vein and posterior tibial veins are compressible. IMPRESSION: Positive for bilateral deep venous thrombosis, right greater than left. EXAM DESCRIPTION: RAD - Chest Single View - 10/09/2021 4:56 pm CLINICAL HISTORY: weakness COMPARISON: No comparisons FINDINGS: Lines: None. Lungs: No evidence of edema or pneumonia. Pleural: No significant pleural effusions or pneumothorax. Cardiac: Cardiomegaly. Sternotomy. Bones: No acute fractures. Other: IMPRESSION: No acute cardiopulmonary disease. Conclusions/Impression: ALESSANDRA, improving CKD III -No NSAIDs Hyponatremia Hypocalcemia -Continue Vitamin D3 HTN with CKD -Continue Coreg LE Edema -Low sodium diet DM II with hyperglycemia -Continue Lantus -RISS Anemia in chronic illness Iron deficiency 12.2% -Monitor H&H -Consider iron deficiency Gross Hematuria Bladder Mass -Ortiz catheter with irrigation -Follow up with urology -Continue Flomax Slow transit constipation -Continue colace -Lactulose X1
== END 2021-10-20 16:22 | disposition home or self-care (01) | DRG 300 ==
LOC: ER 15:35 → ERHOLD 19:48 → 2ND 10-10 16:16
PROVIDERS: ADMIT Internal Medicine; ATTEND Hospitalist
DX: I82.403 Acute embolism and thrombosis of unspecified deep veins of lower extremity, bilateral (principal); I25.810 Atherosclerosis of coronary artery bypass graft(s) without angina pectoris; N10 Acute pyelonephritis; I50.32 Chronic diastolic (congestive) heart failure; I13.0 Hypertensive heart and chronic kidney disease with heart failure and stage 1 through stage 4 chronic kidney disease, or unspecified chronic kidney disease; N17.9 Acute kidney failure, unspecified; E87.1 Hypo-osmolality and hyponatremia; N18.32 Chronic kidney disease, stage 3b; E11.22 Type 2 diabetes mellitus with diabetic chronic kidney disease; E11.40 Type 2 diabetes mellitus with diabetic neuropathy, unspecified; E11.65 Type 2 diabetes mellitus with hyperglycemia; K59.00 Constipation, unspecified; F41.8 Other specified anxiety disorders; N28.9 Disorder of kidney and ureter, unspecified; G89.29 Other chronic pain; M54.9 Dorsalgia, unspecified; K21.9 Gastro-esophageal reflux disease without esophagitis; E83.51 Hypocalcemia; D63.8 Anemia in other chronic diseases classified elsewhere; F17.200 Nicotine dependence, unspecified, uncomplicated; D50.9 Iron deficiency anemia, unspecified; E03.9 Hypothyroidism, unspecified; N40.1 Benign prostatic hyperplasia with lower urinary tract symptoms; R33.8 Other retention of urine; R31.0 Gross hematuria; Z79.02 Long term (current) use of antithrombotics/antiplatelets; Z91.14 Patient's other noncompliance with medication regimen; Z79.82 Long term (current) use of aspirin; Z79.890 Hormone replacement therapy; Z86.711 Personal history of pulmonary embolism; Z91.19 Patient's noncompliance with other medical treatment and regimen; Z95.1 Presence of aortocoronary bypass graft; Z79.899 Other long term (current) drug therapy; Z86.718 Personal history of other venous thrombosis and embolism; Z95.5 Presence of coronary angioplasty implant and graft; Z20.822 Contact with and (suspected) exposure to COVID-19
CPT/HCPCS: 36415; 71045; 74018; 76857; 80048; 80053; 80076; 81003; 81015; 82607; 82728; 82947; 83036; 83540; 83735; 83880; 84100; 84439; 84443; 84466; 84484; 85025; 85044; 85610; 85730; 93005; 93306; 93970; 96361; 96372; 96374; 99284; J1170; J1644; J1650; J1815; J2270; J7030; J7042; U0003

== ENCOUNTER 2021-10-22 10:06 | Inpatient (IN) | payer OTHER ==
[2021-10-22] MEDS ORDERED: NA CHLORIDE 0.9% 1,000 ML ONE ×4 (10:34→17:29)
--- NOTE | 2021-10-22 10:55 | RAD REPORT ---
EXAM DESCRIPTION: RAD - Chest Single View - 10/22/2021 10:47 am CLINICAL HISTORY: Syncope COMPARISON: Abdomen 1 View (KUB) dated 10/19/2021; Chest Single View dated 10/09/2021 FINDINGS: Lines: None. Lungs: Diffuse prominence of the pulmonary interstitium . Pleural: No significant pleural effusions or pneumothorax. Cardiac: Cardiomegaly. Sternotomy. Bones: No acute fractures. Other: IMPRESSION: Mild interstitial edema. No consolidative airspace disease.
--- NOTE | 2021-10-22 11:07 | RAD REPORT ---
EXAM DESCRIPTION: CT - [id number] - 10/22/2021 10:52 am CLINICAL HISTORY: SYNCOPE COMPARISON: No comparisons TECHNIQUE: Axial 5 mm thick images of the head were obtained. Axial 2 mm thick images of the cervical spine were obtained with sagittal and coronal reconstruction images generated and reviewed. All CT scans are performed using dose optimization technique as appropriate and may include automated exposure control or mA/KV adjustment according to patient size. FINDINGS: CT HEAD WITHOUT CONTRAST: No acute hemorrhage, hydrocephalus or extra-axial collection is identified.No areas of brain edema or midline shift. The paranasal sinuses and mastoids are clear.The calvarium is intact. CT CERVICAL SPINE WITHOUT CONTRAST: No fracture or subluxation.No prevertebral soft tissues swelling is identified. Multilevel cervical s pondylosis with varying degrees of neural foraminal narrowing. IMPRESSION: No acute intracranial or cervical spine findings.
[2021-10-22 11:50] LABS: Absolute Lymphocytes (CBC) 1.8 K/uL (0.7-4.9); Hematocrit 39.8 % (39.6-49.0); MPV 7.6 fL (7.6-11.3)
[2021-10-22 11:51] LABS: Protime INR 1.32
[2021-10-22 12:11] LABS: Albumin 2.1 g/dL (3.4-5.0); Bilirubin Direct 0.1 mg/dL (0-0.2); Bilirubin Total 0.5 mg/dL (0.2-1.0); Magnesium 2.7 mg/dL (1.8-2.4); Potassium 4.2 mmol/L (3.5-5.1); Protein, Total 6.4 g/dL (6.4-8.2)
[2021-10-22 12:13] LABS: Troponin High Sensitivity 119.9 pg/mL (<58.9)
[2021-10-22 12:42] LABS: Ferritin 517.8 ng/mL (26-388)
[2021-10-22 12:58] LABS: Urine Blood 3+ (Negative); Urine Glucose Negative (Negative); Urine Protein 2+ (Negative); Urine Specific Gravity >=1.030 (1.005-1.030)
[2021-10-22 13:22] LABS: Urine RBC >50 /HPF (NONE SEEN); Urine Urothelial Cells <5 /HPF (NONE SEEN)
[2021-10-22 13:23] LABS: Urine Bacteria 20-50 /HPF (NONE SEEN)
[2021-10-22] MEDS ORDERED: CEFTRIAXONE 1000 MG/VIAL ONE (13:45)
[2021-10-22] MEDS ORDERED: NA CHLORIDE 0.9% 50 ML ONE (14:00)
[2021-10-22 14:58] LABS: SARS-COV-2 RT PCR NEGATIVE (NEGATIVE)
[2021-10-22] MEDS ORDERED: NA CHLORIDE 0.9% 1,000 ML IV SCH (19:00)
[2021-10-22] MEDS ORDERED: NOREPINEPHRINE 4 MG in D5W 250 ML IV SCH ×2 (19:00→19:51)
[2021-10-22] MEDS ORDERED: HYDROCORTISONE SUC 100 MG INJ IV ONE (19:51)
[2021-10-22] MEDS ORDERED: VANCOMYCIN 1 GM in NA CHLORIDE 0.9% 250 ML IVPB SCH (19:51)
[2021-10-22] MEDS ORDERED: ACETAMINOPHEN 500 MG TAB PO PRN (19:51)
[2021-10-22] MEDS ORDERED: ONDANSETRON 4 MG/2 ML VIAL IV PRN (19:51)
[2021-10-22] MEDS ORDERED: ALBUMIN HUMAN 25% 100 ML IV ONE (19:51)
[2021-10-22] MEDS ORDERED: VANCOMYCIN 1 GM/VIAL ONE (20:11)
[2021-10-22] MEDS ORDERED: HYDROCORTISONE SUC 100 MG INJ ONE (20:11)
[2021-10-22] MEDS ORDERED: NA CHLORIDE 0.9% 250 ML ONE (20:11)
[2021-10-22] MEDS ORDERED: ALBUMIN HUMAN 25% 50 ML IV ONE (20:12)
[2021-10-22] MEDS: INSULIN -REGULAR HUMAN 50 UNIT/0.5 ML ML SQ SCH (20:48)
[2021-10-22] MEDS ORDERED: ASPIRIN EC 81 MG TAB PO ONE (20:52)
[2021-10-22] MEDS ORDERED: TAMSULOSIN 0.4 MG SR CAP ONE (20:53)
[2021-10-22] MEDS ORDERED: APIXABAN 5 MG TABLET ONE (20:53)
[2021-10-22] MEDS ORDERED: SIMVASTATIN 80 MG PO SCH (21:00)
[2021-10-22] MEDS ORDERED: VANCOMYCIN 2 GM in NA CHLORIDE 0.9% 500 ML IVPB SCH (21:00)
[2021-10-22] MEDS ORDERED: APIXABAN 5 MG TABLET PO SCH (21:00)
[2021-10-22] MEDS: TAMSULOSIN 0.4 MG SR CAP PO SCH (21:00)
[2021-10-22] MEDS ORDERED: ASPIRIN EC 81 MG TAB PO SCH (21:00)
[2021-10-22] MEDS ORDERED: QUETIAPINE 100MG TAB PO SCH (21:00)
[2021-10-22] MEDS ORDERED: QUETIAPINE 100MG TAB ONE (21:02)
[2021-10-22 21:05] VITALS: BMI 31.4
--- NOTE | 2021-10-22 22:29 | P.HP ---
Certification for Inpatient Patient admitted to: Inpatient With expected LOS: >2 Midnights Patient will require the following post-hospital care: None Practitioner: I am a practitioner with admitting privileges, knowledge of patient current condition, hospital course, and medical plan of care. Services: Services provided to patient in accordance with Admission requirements found in Title 42 Section 412.3 of the Code of Federal Regulations <CharlesRob Eduardo - Last Filed: 10/22/21 22:23> Patient History Date of Service: 10/22/21 Reason for admission: urosepsis History of Present Illness: Mr. Jordan is a 61 yo M with CAD, DM, CKD4 and history of DVT/PEs who presents after near syncopal episode. He was recently discharged home after treatment of DVT and pyelonephritis. 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 He says this morning, he had a bowel movement and then he was too weak to get up from the toilet. His sister says that he turned andrews and when she checked his blood pressure it was 70/40. He also says his blood sugar was low. He still reports pain in his legs. He received 3 liters of fluid in the ED but continues to be borderline hypotensive. WBC 19.6 Na 135 BUN 30 Cr 2.18 GFR 31 Glu 152 trop 119.90 BNP 3579 Urine is positive for UTI, urine culture pending. 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 -: CABG x 5 -: cardiac stents -: IVC filter -: tonsillectomy - Social History Alcohol use: No CD- Drugs: No Caffeine use: Yes Place of Residence: Home <Rob Soto - Last Filed: 10/22/21 22:23> Date of Service: 10/22/21 <Luis Manuel Kinsey - Last Filed: 10/24/21 01:37> Allergies No Known Allergies Allergy (Unverified 10/07/21 03:29) Home Medications: Aspirin [Aspirin EC 81 MG] 81 mg PO BEDTIME 10/07/21 Citalopram [Celexa*] 40 mg PO DAILY 10/07/21 Cyclobenzaprine [Flexeril*] 10 mg PO TID PRN 10/07/21 Esomeprazole Magnesium [Nexium 24Hr] 20 mg PO DAILY 10/07/21 Fish Oil/Dha/Epa [Fish Oil 1,200 mg Fish Oil] 2,400 mg PO BID 10/07/21 Insulin Glargine,Hum.rec.anlog [Toujeo Solostar] 20 unit SQ DAILY 10/07/21 Levothyroxine [Synthroid*] 50 mcg PO [id number] 10/07/21 Lisinopril [Zestril] 10 mg PO BEDTIME 10/07/21 Nitroglycerin 0.4 mg SL SEECOM PRN 10/07/21 Quetiapine [Seroquel*] 150 mg PO BEDTIME 10/07/21 Simvastatin 80 mg PO BEDTIME 10/07/21 Testost Cypionate [Depo-Testosterone*] 0.5 ml IM SEECOM 10/07/21 Bupropion *Xl* [Wellbutrin XL*] 300 mg PO DAILY #30 tab 10/09/21 Carvedilol [Coreg] 12.5 mg PO BID #60 10/09/21 Clopidogrel Bisulfate [Plavix*] 75 mg PO DAILY #30 10/09/21 Insulin NPH Hum/Reg Insulin Hm [Novolin 70-30 100 Unit/ml Vial] 50 unit SQ BID #30 ml 10/09/21 Oxycodone HCl/Acetaminophen [Percocet 5/325 Tab*] 1 tab PO Q6H PRN #20 tab 10/09/21 Docusate Sodium [Dulcolax Stool Softener] 100 mg PO DAILY 10/11/21 Furosemide [Lasix*] 40 mg PO DAILY 10/11/21 Potassium Chloride 20 meq PO Q48H 10/11/21 Apixaban [Eliquis] 5 mg PO SEECOM 30 Days #1 tab.ds.pk 10/12/21 Pantoprazole [Protonix Tab*] 40 mg PO ACB #30 tab 10/20/21 Sulfamethoxazole/Trimethoprim [Bactrim Ds Tablet] 1 each PO DAILY #5 tablet 10/20/21 Tamsulosin [Flomax*] 0.4 mg PO BID #60 cap 10/20/21 Review of Systems 10-point ROS is otherwise unremarkable General: Unremarkable Eyes: Unremarkable ENT: Unremarkable Respiratory: Unremarkable Cardiovascular: Light Headedness Gastrointestinal: Unremarkable Genitourinary: Retention Musculoskeletal: Leg Pain Integumentary: Unremarkable Neurological: Weakness, As per HPI <Rob Soto - Last Filed: 10/22/21 22:23> Physical Examination - Physical Exam General: Alert, In no apparent distress HEENT: Atraumatic, PERRLA, Mucous membr. moist/pink, EOMI, Sclerae nonicteric Neck: Supple, 2+ carotid pulse no bruit, No LAD, Without JVD or thyroid abnormality Respiratory: Clear to auscultation bilaterally, Normal air movement Cardiovascular: No edema, Regular rate/rhythm, Normal S1 S2 Gastrointestinal: Normal bowel sounds, No tenderness Musculoskeletal: Tenderness Integumentary: No rashes Neurological: Normal speech, Normal strength at 5/5 x4 extr, Normal tone, Normal affect Lymphatics: No axilla or inguinal lymphadenopathy Urinary: Ortiz catheter - Studies Laboratory Data (last 24 hrs) 10/22/21 11:10: WBC 19.60 H D, Hgb 12.9 L, Hct 39.8 D, Plt Count 450 H D 10/22/21 11:10: Sodium 135 L, Potassium 4.2, BUN 30 H, Creatinine 2.18 H, Glucose 152 H, Magnesium 2.7 H D, Total Bilirubin 0.5, AST 30, ALT 37, Alkaline Phosphatase 121 H 10/22/21 10:35: PT 15.2 H, INR 1.32 <Rob Soto - Last Filed: 10/22/21 22:23> Assessment and Plan - Problems (Diagnosis) (1) UTI (urinary tract infection) Status: Acute Qualifiers: Urinary tract infection type: site unspecified Hematuria presence: with hematuria Qualified Code(s): N39.0 - Urinary tract infection, site not specified; R31.9 - Hematuria, unspecified (2) Acute renal failure superimposed on stage 3 chronic kidney disease Status: Acute Qualifiers: Acute renal failure type: unspecified Chronic kidney disease stage 3 subtype: stage 3b (GFR 30-44) Qualified Code(s): N17.9 - Acute kidney failure, unspecified; N18.32 - Chronic kidney disease, stage 3b (3) DVT, bilateral lower limbs Status: Acute Qualifiers: Affected thrombotic vein of extremity: unspecified vein of extremity Chronicity: acute Qualified Code(s): I82.403 - Acute embolism and thrombosis of unspecified deep veins of lower extremity, bilateral (4) BPH (benign prostatic hyperplasia) Status: Chronic Qualifiers: Lower urinary tract symptom presence: unspecified whether lower urinary tract symptoms present Qualified Code(s): N40.0 - Benign prostatic hyperplasia without lower urinary tract symptoms (5) CAD (coronary artery disease) Status: Chronic Qualifiers: Coronary Disease-Associated Artery/Lesion type: bypass graft [place] vs. transplanted heart: [place] heart Associated angina: without angina Qualified Code(s): I25.810 - Atherosclerosis of coronary artery bypass graft(s) without angina pectoris (6) Chronic pain Status: Chronic (7) Hypothyroid Status: Chronic (8) T2DM (type 2 diabetes mellitus) Status: Chronic Qualifiers: Diabetes mellitus fpc insulin use: with fpc use Diabetes mellitus complication status: with kidney complications Diabetes mellitus complication detail: with chronic kidney disease Chronic kidney disease stage 3 subtype: stage 3b (GFR 30-44) - Plan hydrocortisone and albumin given x1 in the ED if MAP <65, will start levophed drip continue IV vancomycin and cefepime urine culture pending nephrology consulted hold lasix and BP medications continue Eliquis sliding scale insulin and accuchecks trend troponins Discharge Plan: Home Plan to discharge in: Greater than 2 days - Advance Directives Does patient have a Living Will: No Does patient have a Durable POA for Healthcare: No - Code Status/Comfort Care Code Status Assessed: Yes (full code ) Critical Care: Yes Time Spent Managing Pts Care (In Minutes): 70 <Rob Soto - Last Filed: 10/22/21 22:23> Date of Service: 10/23/21 Subjective: He was felt patient had septic shock. On further evaluation patient with have an myocardial ischemia. Transfer is being arranged Physical Examination: Vitals: Afebrile vital signs are stable Physical exam: Cardiovascular: Within normal limits. Lungs: basilar crackles Abdomen: Within normal limits Neuro: Awake, alert, oriented to person place and time Assessment: Plan: 1. Continue with current plan of care and we will work on transfer <Luis Manuel Kinsey - Last Filed: 10/24/21 01:37>
--- NOTE | 2021-10-22 22:45 | ER ---
Nurse's Notes [facility] Name: Paxton Jordan Age: 61 yrs Sex: Male : 1960 Arrival Date: 10/22/2021 Time: 10:09 Bed 7 Private MD: Diagnosis: Severe sepsis with septic shock;UTI/ Urinary tract infection, site not specified Presentation: 10/22 10:00 Chief complaint: EMS states: Patient was in the bathroom \\T\\10 min, sister went to check jg9 on him when patient reported that he did not feel well but he had a bowel movement and she noticed that he was meneses. Patient BLG was low-sister fed him orange juice, toast with peanut butter, and candy-recheck was in the 130's. Patient able to know when his bgl is low. Patient had appeared to be a vagal episode-patient was lethargic, color was extremely pale, and patient was hypoxic and hypotensive when EMS arrived. Coronavirus screen: Vaccine status: Patient reports receiving the 2nd dose of the covid vaccine. Patient reports receiving the 1st dose of the Covid vaccine. Ebola Screen: Patient negative for fever greater than or equal to 101.5 degrees Fahrenheit, and additional compatible Ebola Virus Disease symptoms Patient denies exposure to infectious person. Patient denies travel to an Ebola-affected area in the 21 days before illness onset. Initial Sepsis Screen: Does the patient meet any 2 criteria? Systolic BP < 90 mmHg. Yes No. Patient's initial sepsis screen is negative. Does the patient have a suspected source of infection? No. Patient's initial sepsis screen is negative. Risk Assessment: Do you want to hurt yourself or someone else? Patient reports no desire to harm self or others. Onset of symptoms is unknown. 10:00 Method Of Arrival: EMS: [facility] jg9 10:00 Acuity: MITESH 2 jg9 Triage Assessment: 10:00 General: Appears distressed, Behavior is flat, quiet. Pain: Complains of pain in back jg9 of neck-chronic pain. EENT: No deficits noted. Neuro: No deficits noted. Cardiovascular: No deficits noted. Respiratory: No deficits noted. GI: No deficits noted. : No deficits noted. Derm: No deficits noted. Musculoskeletal: No deficits noted. Historical: - Allergies: 10:54 No Known Allergies; jg9 - Immunization history:: Client reports receiving the 2nd dose of the Covid vaccine, Client reports receiving the 1st dose of the Covid vaccine, Pneumococcal vaccine status is unknown, Flu vaccine is up to date. - Social history:: Smoking status: Patient reports the use of cigarette tobacco products, denies chronic smoking, but will smoke occasionally. Screenin:57 Abuse screen: Denies threats or abuse. Denies injuries from another. Nutritional jg9 screening: No deficits noted. Tuberculosis screening: No symptoms or risk factors identified. Fall Risk None identified. Assessment: 10:00 Derm: Skin is pale, Skin temperature is cool. Musculoskeletal: jg9 11:18 Reassessment: Patient is more alert and responsive, color has improved significantly jg9 per sister at bedside who stated, "he was andrews at the house". Patient c/o being cold and uncomfortable. Derm: Skin is pink, warm \\T\\ dry. Skin temperature is warm. 20:51 Reassessment: see paper charting starting. al4 10/23 16:51 Reassessment: transferred via [facility] to [facility]. jd3 Vital Signs: 10/22 10:00 BP 70 / 42; Pulse 67; Resp 20 S; Temp 96.8; Pulse Ox 95% ; Weight 111.13 kg (R); Height jg9 6 ft. 2 in. (187.96 cm); 10:18 BP 74 / 46 RA; Pulse 71; Resp 25 S; Pulse Ox 95% on R/A; jg9 10:32 BP 75 / 55 RA; Pulse 64; Resp 24 S; Pulse Ox 94% on R/A; jg9 10:57 BP 93 / 53 RA; Pulse 64; Resp 21 S; Pulse Ox 98% on R/A; jg9 11:00 BP 92 / 55 RA; Pulse 63; Resp 22 S; Pulse Ox 99% on R/A; jg9 11:30 BP 102 / 63 RA; Pulse 65; Resp 20 S; Pulse Ox 96% on R/A; jg9 12:15 BP 92 / 56 RA; Pulse 67; Resp 25; Pulse Ox 98% on R/A; jg9 13:00 BP 88 / 57 RA; Pulse 65; Resp 22; Pulse Ox 99% ; jg9 13:30 BP 81 / 50 RA; Pulse 68; Resp 23; Pulse Ox 97% ; jg9 14:00 BP 90 / 54 RA; Pulse 67; Resp 19; Pulse Ox 98% on R/A; jg9 14:30 BP 85 / 50 LA; Pulse 71; Resp 20 S; Pulse Ox 97% on R/A; jg9 14:45 BP 91 / 50 LA; Pulse 66; Resp 18 S; Pulse Ox 92% on R/A; jg9 10:00 Body Mass Index 31.46 (111.13 kg, 187.96 cm) jg9 ED Course: 10:00 Arm band placed on left wrist. jg9 10:09 Patient arrived in ED. iw 10:19 Antonio Henry NP is PHCP. pm1 10:19 Juan Stephens MD is Attending Physician. pm1 10:30 Inserted saline lock: 20 gauge in right wrist, using aseptic technique. Blood collected.jg9 10:32 Grace Jules, RN is Primary Nurse. jg9 10:40 Basic Metabolic Panel Sent. ww 10:47 XRAY Chest (1 view) In Process Unspecified. EDMS 10:52 Head C Spine Mpr Wo Con In Process Unspecified. EDMS 10:54 Triage completed. jg9 10:57 Patient has correct armband on for positive identification. Bed in low position. Call jg9 light in reach. Side rails up X 1. 13:57 Procalcitonin Sent. jg9 13:58 Blood Culture Adult (2) Sent. ww 13:59 Urine Microscopic Only Sent. ww 15:03 No apparent distress. Resting quietly. jg9 21:12 Luis Manuel Kinsey MD is Hospitalizing Provider. 10/23 06:14 Primary Nurse role handed off by Grace Jules, RN eb Administered Medications: 10/22 10:37 Drug: NS 0.9% 1000 ml Route: IV; Rate: 1000 ml; Site: right wrist; jg9 11:31 Follow up: IV Status: Completed infusion; IV Intake: 1000ml jg9 11:45 Follow up: IV Status: Completed infusion; IV Intake: 1000ml j9 11:27 Drug: NS 0.9% 1000 ml Route: IV; Rate: 125 ml/hr; Site: right wrist; ww 13:45 Drug: NS 0.9% 1000 ml Route: IV; Rate: 1000 ml; Site: right wrist; jg9 14:20 Drug: Rocephin (cefTRIAXone) 1 grams Route: IV; Rate: calculated rate; Site: right jg9 wrist; 14:45 Follow up: IV Status: Completed infusion; IV Intake: 50ml jg9 10/23 01:54 Drug: GI Cocktail without - (Maalox Suspension 30 ml, Lidocaine Liquid 2 % 15 as6 ml) Route: PO; Intake: 10/22 11:31 IV: 1000ml; Total: 1000ml. jg9 11:45 IV: 1000ml; Total: 2000ml. jg9 14:45 IV: 50ml; Total: 2050ml. jg9 Outcome: 21:13 Decision to Hospitalize by Provider. chema 10/23 16:52 Patient left the ED. jd3 Signatures: Dispatcher [employer] EDMS Noemy Bravo RN RN iw uJan Tovra PA PA cp Antonio Henry, SENIOR HARDWARE DESIGN ENGINEER SENIOR HARDWARE DESIGN ENGINEER pm1 Geovani Funez RN RN jd3 Anna Marie Oro Ashby, RN RN as6 Remy Smart alGrace Osborn RN RN jg9 Taylor Jalloh, RN RN ww Corrections: (The following items were deleted from the chart) 10/22 14:45 14:30 Rocephin (cefTRIAXone) 1 grams IV at calculated rate in right wrist jg9 jg9 15:03 11:00 BP 92 / 55; Pulse 63bpm; Resp 22bpm; Spontaneous; Pulse Ox 99% RA; 9 jg9 15:03 10:18 BP 74 / 46; Pulse 71bpm; Resp 25bpm; Spontaneous; Pulse Ox 95% RA; j9 jg9 15:03 10:32 BP 75 / 55; Pulse 64bpm; Resp 24bpm; Spontaneous; Pulse Ox 94% RA; j9 jg9 15:03 10:57 BP 93 / 53; Pulse 64bpm; Resp 21bpm; Spontaneous; Pulse Ox 98% RA; j9 jg9 15:03 11:30 BP 102 / 63; Pulse 65bpm; Resp 20bpm; Spontaneous; Pulse Ox 96% RA; j9 jg9 15:03 12:15 BP 92 / 56; Pulse 67bpm; Resp 25bpm; Pulse Ox 98% RA; jg9 13:30 BP 81 / 50; Pulse 68bpm; Resp 23bpm; Pulse Ox 97%; jg9 13:00 BP 88 / 57; Pulse 65bpm; Resp 22bpm; Pulse Ox 99%; jg9 14:00 BP 90 / 54; Pulse 67bpm; Resp 19bpm; Pulse Ox 98% RA; jg9
--- NOTE | 2021-10-22 22:45 | EDPHYS ---
Physician Documentation [facility] Name: Paxton Jordan Age: 61 yrs Sex: Male : 1960 Arrival Date: 10/22/2021 Time: 10:09 Bed 7 Private MD: ED Physician uJan Stephens HPI: 10/22 10:29 This 61 yrs old Male presents to ER via EMS with complaints of hypotension and syncope. pm1 10:29 The patient has experienced syncope. Onset: The symptoms/episode began/occurred just pm1 prior to arrival. Duration: This was a single episode. Context: the episode(s) was witnessed, by no one, occurred at home, occurred while the patient was defecating, Just prior to the episode the patient experienced no apparent symptoms, Patient reports large bowel movement and then felt faint and fell on the floor. Patient reports that he was unable to get off the floor. His sister checked on him when he did not come out of the restroom for 10 minutes and he told her to call the ambulance because he felt weak and was unable to get up. Associated injury: Associated injury: Head/face: headache, Neck: pain. Associated signs and symptoms: Pertinent negatives: chest pain, diarrhea, nausea, shortness of breath, vomiting. The patient has not experienced similar symptoms in the past. The patient has been recently been admitted at [facility], was discharged from the hospital October 20, 2021, bilateral lower extremity DVT and UTI. Patient was discharged home with Bactrim. He has taken only 1 dose of his Bactrim since discharge. Historical: - Allergies: 10:54 No Known Allergies; jg9 - Immunization history:: Client reports receiving the 2nd dose of the Covid vaccine, Client reports receiving the 1st dose of the Covid vaccine, Pneumococcal vaccine status is unknown, Flu vaccine is up to date. - Social history:: Smoking status: Patient reports the use of cigarette tobacco products, denies chronic smoking, but will smoke occasionally. ROS: 10:29 Constitutional: Negative for fever, chills, and weight loss, Cardiovascular: Negative pm1 for chest pain, palpitations, and edema, Respiratory: Negative for shortness of breath, cough, wheezing, and pleuritic chest pain. 10:29 Back: Negative for injury and pain, MS/Extremity: Negative for injury and deformity, Skin: Negative for injury, rash, and discoloration. 10:29 Neck: Positive for pain. 10:29 Abdomen/GI: Negative for abdominal pain, nausea, vomiting, and diarrhea, constipation. 10:29 Neuro: Positive for headache, syncope, weakness, Negative for dizziness, seizure activity. 10:29 All other systems are negative. Exam: 10:31 Back: No spinal tenderness. No costovertebral tenderness. Full range of motion. pm1 Skin: Warm, dry with normal turgor. Normal color with no rashes, no lesions, and no evidence of cellulitis. MS/ Extremity: Pulses equal, no cyanosis. Neurovascular intact. Full, normal range of motion. 10:31 Constitutional: The patient appears in no acute distress, awake, non-diaphoretic, non-toxic, well developed, well hydrated, well groomed, well nourished, obese, irritable 10:31 Head/face: Exam is negative for acute changes. 10:31 Eyes: Exam is negative for acute changes, Extraocular movements: intact throughout, Sclera: no acute changes, icterus, is not appreciated. 10:31 Cardiovascular: Rate: normal, Rhythm: regular, Pulses: no pulse deficits are appreciated. 10:31 Respiratory: Exam negative for acute changes, the patient does not display signs of respiratory distress, Respirations: no acute changes, Breath sounds: are clear throughout. 10:31 Abdomen/GI: Inspection: obese Palpation: abdomen is soft and non-tender, in all quadrants. 10:31 Neuro: Orientation: is normal, Mentation: is normal, Motor: is normal, moves all fours. Vital Signs: 10:00 BP 70 / 42; Pulse 67; Resp 20 S; Temp 96.8; Pulse Ox 95% ; Weight 111.13 kg (R); Height jg9 6 ft. 2 in. (187.96 cm); 10:18 BP 74 / 46 RA; Pulse 71; Resp 25 S; Pulse Ox 95% on R/A; jg9 10:32 BP 75 / 55 RA; Pulse 64; Resp 24 S; Pulse Ox 94% on R/A; jg9 10:57 BP 93 / 53 RA; Pulse 64; Resp 21 S; Pulse Ox 98% on R/A; jg9 11:00 BP 92 / 55 RA; Pulse 63; Resp 22 S; Pulse Ox 99% on R/A; jg9 11:30 BP 102 / 63 RA; Pulse 65; Resp 20 S; Pulse Ox 96% on R/A; jg9 12:15 BP 92 / 56 RA; Pulse 67; Resp 25; Pulse Ox 98% on R/A; jg9 13:00 BP 88 / 57 RA; Pulse 65; Resp 22; Pulse Ox 99% ; jg9 13:30 BP 81 / 50 RA; Pulse 68; Resp 23; Pulse Ox 97% ; jg9 14:00 BP 90 / 54 RA; Pulse 67; Resp 19; Pulse Ox 98% on R/A; jg9 14:30 BP 85 / 50 LA; Pulse 71; Resp 20 S; Pulse Ox 97% on R/A; jg9 14:45 BP 91 / 50 LA; Pulse 66; Resp 18 S; Pulse Ox 92% on R/A; jg9 10:00 Body Mass Index 31.46 (111.13 kg, 187.96 cm) 9 Procedures: 19:26 Central Line: the site was prepped with Betadine, in sterile fashion, a triple lumen pm1 catheter was inserted, in the left femoral vein, in 1 attempts. placement was verified, by blood return, the site was dressed with Tegaderm, using sterile technique, the patient tolerated the procedure, well, Placement to left femoral vein due to right leg swelling from DVT. MDM: 10:19 Patient medically screened. pm1 10:29 ED course: Patient with history of CHF, will give 1 liter NS and then reevaluate. pm1 11:27 ED course: Patient responded well to 1 L NS bolus, will put the patient on maintenance pm1 rate. 13:46 Counseling: I had a detailed discussion with the patient and/or guardian regarding: the pm1 historical points, exam findings, and any diagnostic results supporting the discharge/admit diagnosis, lab results, radiology results, the need for further work-up and treatment in the hospital. 15:43 Data reviewed: vital signs. pm10/22 10:29 Order name: Basic Metabolic Panel pm1 10/22 10:29 Order name: CBC with Diff; Complete Time: 11:56 pm1 10/22 10:29 Order name: LFT's; Complete Time: 12:14 pm10/22 10:29 Order name: Magnesium; Complete Time: 12:14 pm10/22 10:29 Order name: NT PRO-BNP; Complete Time: 12:14 pm10/22 10:29 Order name: PT-INR; Complete Time: 11:55 pm10/22 10:29 Order name: Troponin HS; Complete Time: 12:14 pm10/22 10:29 Order name: CPK; Complete Time: 12:14 pm10/22 10:29 Order name: Basic Metabolic Panel; Complete Time: 12:14 EDMS 10/22 11:57 Order name: Urine Microscopic Only pm10/22 11:57 Order name: Blood Culture Adult (2) pm10/22 11:57 Order name: Urine Microscopic Only; Complete Time: 13:33 EDMS 10/22 11:57 Order name: Blood Culture; Complete Time: 18:46 EDMS 10/22 12:04 Order name: Procalcitonin pm10/22 12:04 Order name: Lactate; Complete Time: 13:33 pm10/22 12:04 Order name: Procalcitonin; Complete Time: 13:33 EDMS 10/22 12:16 Order name: COVID-19/FLU A+B (Document "Date of Onset" if Symptomatic); Complete Time: pm1 15:07 10/22 12:23 Order name: CRP; Complete Time: 12:42 pm10/22 12:23 Order name: Ferritin; Complete Time: 12:42 pm10/22 12:57 Order name: Urine Dipstick-Ancillary; Complete Time: 13:17 EDMS 10/22 13:24 Order name: Urine Culture 10/22 22:40 Order name: Glucose, Ancillary Testing; Complete Time: 18:46 EDMS 10/22 22:40 Order name: Lactate Sepsis 2 HR Follow-up; Complete Time: 18:46 EDMS 10/22 22:41 Order name: Troponin High Sensitivity; Complete Time: 18:46 EDMS 10/23 01:11 Order name: Troponin High Sensitivity; Complete Time: 18:46 EDMS 10/23 03:37 Order name: CBC with Automated Diff; Complete Time: 18:46 EDMS 10/23 03:56 Order name: Comprehensive Metabolic Panel; Complete Time: 18:46 EDMS 10/23 03:56 Order name: Phosphorus; Complete Time: 18:46 EDMS 10/23 03:56 Order name: Lipid Profile; Complete Time: 18:46 EDMS 10/23 03:56 Order name: Magnesium; Complete Time: 18:46 EDMS 10/22 10:29 Order name: XRAY Chest (1 view); Complete Time: 11:03 pm10/22 10:29 Order name: EKG; Complete Time: 10:29 pm1 10/22 10:29 Order name: Cardiac monitoring; Complete Time: 10:40 pm10/22 10:29 Order name: EKG - Nurse/Tech; Complete Time: 10:40 pm10/22 10:29 Order name: IV Saline Lock; Complete Time: 10:40 pm10/22 10:29 Order name: Labs collected and sent; Complete Time: 10:40 pm10/22 10:29 Order name: O2 Per Protocol; Complete Time: 10:40 pm1 10/22 10:29 Order name: O2 Sat Monitoring; Complete Time: 10:40 pm1 10/22 10:48 Order name: Head C Spine Mpr Wo Con; Complete Time: 11:10 EDMS 10/22 10:48 Order name: Labs - recollect needed: recollect all the blood/ hemolyzed; Complete Time: eb 11:27 10/22 11:57 Order name: Urine Dipstick-Ancillary (obtain specimen); Complete Time: 13:05 pm10/22 11:57 Order name: Straight Cath - Urine; Complete Time: 13:05 pm1 10/23 04:01 Order name: D-Dimer; Complete Time: 18:46 EDMS 10/23 04:15 Order name: Troponin High Sensitivity; Complete Time: 18:46 EDMS 10/23 08:37 Order name: Glucose, Ancillary Testing; Complete Time: 18:46 EDMS 10/23 08:37 Order name: Glucose, Ancillary Testing; Complete Time: 18:46 EDMS 10/23 08:38 Order name: Glucose, Ancillary Testing; Complete Time: 18:46 EDMS 10/23 12:15 Order name: Glucose, Ancillary Testing; Complete Time: 18:46 EDMS 10/23 12:43 Order name: ABG jd3 10/23 12:43 Order name: XRAY Chest (1 view) jd3 10/23 12:47 Order name: Troponin High Sensitivity; Complete Time: 18:46 EDMS 10/23 13:24 Order name: ABG Arterial Blood Gas; Complete Time: 18:46 EDMS 10/23 14:28 Order name: RAD; Complete Time: 18:46 EDWA 10/23 14:52 Order name: PTT, Activated Partial Thromb; Complete Time: 18:46 EDMS Administered Medications: 10:37 Drug: NS 0.9% 1000 ml Route: IV; Rate: 1000 ml; Site: right wrist; jg9 11:31 Follow up: IV Status: Completed infusion; IV Intake: 1000ml jg9 11:45 Follow up: IV Status: Completed infusion; IV Intake: 1000ml jg9 11:27 Drug: NS 0.9% 1000 ml Route: IV; Rate: 125 ml/hr; Site: right wrist; 13:45 Drug: NS 0.9% 1000 ml Route: IV; Rate: 1000 ml; Site: right wrist; jg9 14:20 Drug: Rocephin (cefTRIAXone) 1 grams Route: IV; Rate: calculated rate; Site: right jg9 wrist; 14:45 Follow up: IV Status: Completed infusion; IV Intake: 50ml 9 10/23 01:54 Drug: GI Cocktail without - (Maalox Suspension 30 ml, Lidocaine Liquid 2 % 15 as6 ml) Route: PO; Disposition: 18:39 Co-signature as Attending Physician, Juan Stephens MD I agree with the assessment and elizabeth plan of care. Disposition Summary: 10/22/21 21:13 Hospitalization Ordered Hospitalization Status: Inpatient Admission cp Provider: Luis Manuel Kinsey cp Condition: Serious cp Problem: new cp Symptoms: have improved cp Bed/Room Type: Standard cp Location: [facility] ER HOLD(10/22/21 21:13) Room Assignment: ERHOLD-(10/22/21 21:13) Diagnosis - Severe sepsis with septic shock cp - UTI/ Urinary tract infection, site not specified cp Forms: - Medication Reconciliation Form cp - SBAR form cp Signatures: Dispatcher [employer] EDTori Trejo FNP-C FNP-Ckb Webb, Martha, RN RN mw Anderson, Corey, MD MD cha Page, Corey, PA PA cp Antonio Henry, IT TEACHER IT TEACHER pm1 Anna Marie Oro Ashby RN RN as6 Grace Jules, RN RN jg9 Taylor Jalloh, RN RN ww Corrections: (The following items were deleted from the chart) 10/22 10:48 10:29 Head Brain Wo Cont+CT.RAD.BRZ ordered. EDMS EDMS 21:13 Intensive Care Unit cp mw : 21: cp mw
[2021-10-22] MEDS ORDERED: NOREPINEPHRINE 4mg/D5W 250mL 4 MG/250 ML BAG IV ONE (23:53)
[2021-10-23] MEDS: ASPIRIN 81 MG CHEWABLE TABLET PO SCH ×2 (00:39→08:58)
[2021-10-23] MEDS: CALCIUM CARBONATE CHEW 500MG TAB PO SCH ×3 (00:39→11:30)
[2021-10-23] MEDS ORDERED: ASPIRIN 81 MG CHEWABLE TABLET ONE ×2 (00:45→08:33)
[2021-10-23] MEDS ORDERED: FENTANYL CITR 100 MCG/2 ML ONE ×4 (00:45→14:17)
[2021-10-23] MEDS ORDERED: CALCIUM CARBONATE CHEW 500MG TAB ONE (00:47)
[2021-10-23] MEDS: FENTANYL CITR 100 MCG/2 ML IV PRN ×2 (00:54→14:27)
[2021-10-23] MEDS ORDERED: FAMOTIDINE 20 MG/2 ML VIAL IV ONE ×2 (01:00→08:34)
[2021-10-23] MEDS ORDERED: PANTOPRAZOLE 40MG TABLET PO ONE (01:40)
[2021-10-23] MEDS ORDERED: MAGNES/ALUMIN/SIMET 30ML UCUP ONE (01:50)
[2021-10-23] MEDS ORDERED: LIDOCAINE VISCOUS 2% SOLN 15 ML UDC ONE (01:51)
[2021-10-23] MEDS ORDERED: NA CHLORIDE 0.9% 1,000 ML ONE (02:59)
[2021-10-23 03:34] LABS: Absolute Lymphocytes (CBC) 1.5 K/uL (0.7-4.9); Hematocrit 30.8 % (39.6-49.0); Lymphocytes % 11.6 % (15.3-44.8); MPV 7.4 fL (7.6-11.3); RBC Red Blood Cell Count 3.26 M/uL (4.33-5.43)
[2021-10-23 03:46] LABS: Bilirubin Total 0.5 mg/dL (0.2-1.0); Magnesium 1.5 mg/dL (1.8-2.4); Phosphorus 3.1 mg/dL (2.5-4.9); Potassium 4.4 mmol/L (3.5-5.1); Protein, Total 5.6 g/dL (6.4-8.2)
[2021-10-23] MEDS ORDERED: LEVOTHYROXINE SOD 0.05 MG TABLET PO SCH (06:00)
[2021-10-23] MEDS: INSULIN -REGULAR HUMAN 50 UNIT/0.5 ML ML SQ SCH ×2 (08:30→11:30)
[2021-10-23] MEDS ORDERED: INSULIN -REGULAR HUMAN 50 UNIT/0.5 ML ML ONE ×2 (08:31→12:16)
[2021-10-23] MEDS ORDERED: APIXABAN 5 MG TABLET ONE (08:33)
[2021-10-23] MEDS ORDERED: CEFEPIME 1 GM/VIAL ONE (08:33)
[2021-10-23] MEDS ORDERED: CLOPIDOGREL 75 MG TABLET ONE (08:34)
[2021-10-23] MEDS ORDERED: NA CHLORIDE 0.9% 100 ML ONE (08:34)
[2021-10-23] MEDS ORDERED: TAMSULOSIN 0.4 MG SR CAP ONE (08:34)
[2021-10-23] MEDS ORDERED: FENTANYL CITR 100 MCG/2 ML IV ONE (08:52)
[2021-10-23] MEDS: TAMSULOSIN 0.4 MG SR CAP PO SCH (08:58)
[2021-10-23] MEDS ORDERED: CLOPIDOGREL 75 MG TABLET PO SCH (09:00)
[2021-10-23] MEDS ORDERED: HEPARIN/D5W 25,000 UNIT/500 ML BAG IV SCH (09:00)
[2021-10-23] MEDS ORDERED: BUPROPION HCL XL 150 MG TAB PO SCH (09:00)
[2021-10-23] MEDS ORDERED: DOCUSATE NA 100 MG CAP PO SCH (09:00)
[2021-10-23] MEDS ORDERED: FAMOTIDINE 20 MG/2 ML VIAL IV SCH (09:00)
[2021-10-23] MEDS ORDERED: CEFEPIME 1 GM in NA CHLORIDE 0.9% 100 ML IV SCH (09:00)
[2021-10-23] MEDS ORDERED: INFLUENZA VACCINE (for 6+ mo) 0.5 ML DOSE IMVAC ONE (09:00)
[2021-10-23] MEDS ORDERED: INSULIN GLARGINE 100 UNIT/ML SQ SCH (09:00)
[2021-10-23] MEDS ORDERED: INSULIN GLARGINE SQ SCH (09:00)
[2021-10-23] MEDS ORDERED: [UNRECOGNIZED DRUG - OTHER] SQ SCH (09:00)
[2021-10-23] MEDS ORDERED: APIXABAN 5 MG TABLET PO SCH (09:00)
[2021-10-23] MEDS ORDERED: CITALOPRAM 10 MG TABLET PO SCH (09:00)
[2021-10-23] MEDS ORDERED: DOCUSATE NA 100 MG CAP PO ONE (09:13)
[2021-10-23] MEDS ORDERED: HEPARIN 5000 UNIT/ML 1 ML VIAL ONE (10:10)
[2021-10-23] MEDS ORDERED: NA CHLORIDE 0.9% 250 ML ONE (10:11)
[2021-10-23] MEDS ORDERED: ALPRAZOLAM 0.25 MG TABLET PO ONE (10:12)
[2021-10-23] MEDS ORDERED: NA CHLORIDE 0.9% 250 ML IV PRN (10:13)
[2021-10-23] MEDS ORDERED: HEPARIN/D5W 25,000 UNIT/500 ML BAG IV ONE (10:41)
[2021-10-23] MEDS ORDERED: VANCOMYCIN 2 GM in NA CHLORIDE 0.9% 500 ML IVPB SCH (11:00)
[2021-10-23 11:53] VITALS: O2SAT 93
[2021-10-23 13:01] LABS: Arterial Blood Carboxyhemoglob 1.1 % (0-1.5); Blood Gas Oxyhemoglobin 86.5 % (94-97); Blood O2 Saturation 88.3 % (92-98.5)
[2021-10-23] MEDS ORDERED: ALBUMIN HUMAN 25% 100 ML IV ONE ×2 (13:58→14:02)
[2021-10-23] MEDS ORDERED: FUROSEMIDE 40 MG/4 ML VIAL IV ONE (13:59)
[2021-10-23] MEDS ORDERED: FUROSEMIDE 40 MG/4 ML VIAL ONE (14:02)
--- NOTE | 2021-10-23 14:27 | RAD REPORT ---
EXAM DESCRIPTION: RAD - Chest Single View - 10/23/2021 1:55 pm CLINICAL HISTORY: DYSPNEA Chest pain. COMPARISON: Chest Single View dated 10/22/2021; Abdomen 1 View (KUB) dated 10/19/2021; Chest Single Vi ew dated 10/09/2021 FINDINGS: Portable technique limits examination quality. Moderate bilateral pulmonary opacities are noted within moderately progressed since yesterday's study . Pulmonary edema versus pneumonia would be primary differential. The heart is moderately enlarged wi th changes of a prior CABG.
[2021-10-23 16:06] VITALS: BP 119/84
--- NOTE | 2021-10-23 19:42 | CON ---
Date of Consultation: 10/23/2021 Reason For Consultation: Non-ST elevation NH. History Of Present Illness: 61-year-old with history of coronary artery disease, status post five-ve ssel bypass in 2005, chronic kidney disease, diabetes, DVT and PE, on anticoagulation, history of mazin dder mass, presented with significant shortness of breath, orthopnea, retrosternal pressure-like ches t pain that is intense and waxes and wanes, found to have also a urinary tract infection. He is pale , diaphoretic, and borderline hypotensive. Past Medical History: As outlined above in the HPI. Medications: Refer reconciliation sheet for detailed list. Allergies: NO KNOWN DRUG ALLERGIES. Past Surgical History: Coronary artery bypass surgery. IVC filter placement. Family History: No history of premature coronary artery disease or cancer. Social History: Does not smoke or drink. Does not use any drugs. Review of Systems: All systems reviewed and they were negative except for mentioned in HPI. Physical Examination: Vital Signs: Reviewed. Head and Neck: Pupils are equal, reactive to light. Intact eye movements. Positive JVD. No lympha denopathy. Neck is supple. Thyroid is not enlarged. Lungs: Rhonchi bilaterally with slight acute respiratory efforts. Heart: Regular rate and rhythm. Tachycardic. Abdomen: Soft, nontender. Bowel sounds positive. No organomegaly. No masses or hernia. No rigidi ty or rebound. Extremities: 2 to 3+ pedal edema. No clubbing, cyanosis. Intact pulses. Skin: No rash was noted. Neurologic: Alert, oriented x3. No acute focal deficits appreciated. Investigations: White blood count is 12.6, hemoglobin 10.1. Troponin is 5986. At this time, creati nine 1.96. His chest x-ray, pulmonary edema. Assessment And Recommendation: 1.Non-ST elevation myocardial infarction. Look at the EKG compared to old EKG. There are significa nt ischemic changes. Findings suggestive of triple-vessel disease versus left main disease as respon sible for this acute heart attack. Agree with IV heparin, aspirin. Patient already received Plavix. Due to low blood pressure, nitroglycerin will not be used. I recommend an immediate transfer to [facility] level of care facility to get a mechanical supportive device inserted like an Impella and do rat her emergent coronary angiogram. In the interim, his mean perfusing pressures in the mid 70s, can us e dose of Lasix 40 mg IV for symptoms relief of the congestive heart failure. 2.Acute congestive heart failure, likely due to the acute myocardial infarction. We will use Lasix very closely due to low blood pressure and attempt to transfer the patient to higher level of care du e to the concern of the impending cardiogenic shock. Critically ill patient. Discussed with primary hospitalist and the ER staff and instructed for immediate transfer to higher level of care facility. /TATIANAL Voice ID: [id number] Report ID: [id number]
[2021-10-23] MEDS ORDERED: ATORVASTATIN 40 MG TAB PO SCH (21:00)
--- NOTE | 2021-10-24 01:37 | P.DS ---
Discharge Date: 10/23/21 Disposition: [facility] Discharge Condition: FAIR Reason for Admission: urosepsis Brief History of Present Illness: Mr. Jordan is a 61 yo M with CAD, DM, CKD4 and history of DVT/PEs who presents after near syncopal episode. He was recently discharged home after treatment of DVT and pyelonephritis. 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 He says this morning, he had a bowel movement and then he was too weak to get up from the toilet. His sister says that he turned andrews and when she checked his blood pressure it was 70/40. He also says his blood sugar was low. He still reports pain in his legs. He received 3 liters of fluid in the ED but continues to be borderline hypotensive. WBC 19.6 Na 135 BUN 30 Cr 2.18 GFR 31 Glu 152 trop 119.90 BNP 3579 Urine is positive for UTI, urine culture pending. Hospital Course: Patient workup revealed acute coronary syndrome. Patient was started on IV heparin. We tried to arrange for patient to get transferred but we were not very successful initially. We called al the [facility], [facility], [facility], as well as [facility]. We also notified [facility]. However, initially no one had beds. Cardiology was consulted and they recommended transfer. We finally diet arrangement at [facility]. Patient was transferred for cardiac catheterization. Vital Signs/Physical Exam: Temp Pulse Resp BP Pulse Ox 105 H 28 H 119/84 94 10/23/21 16:00 10/23/21 16:00 10/23/21 16:00 10/23/21 16:00 General: Alert, In no apparent distress, Oriented x3 Laboratory Data at Discharge: WBC 12.60 K/uL (4.3-10.9) H D 10/23/21 03:14 Hgb 10.1 g/dL (13.6-17.9) L D 10/23/21 03:14 Hct 30.8 % (39.6-49.0) L D 10/23/21 03:14 Plt Count 406 K/uL (152-406) 10/23/21 03:14 PT 15.2 SECONDS (9.5-12.5) H 10/22/21 10:35 INR 1.32 10/22/21 10:35 APTT Cancelled 10/23/21 19:00 Sodium 138 mmol/L (136-145) 10/23/21 03:14 Potassium 4.4 mmol/L (3.5-5.1) 10/23/21 03:14 BUN 30 mg/dL (7-18) H 10/23/21 03:14 Creatinine 1.96 mg/dL (0.55-1.3) H 10/23/21 03:14 Glucose 295 mg/dL (74-106) H 10/23/21 03:14 Phosphorus 3.1 mg/dL (2.5-4.9) 10/23/21 03:14 Magnesium 1.5 mg/dL (1.8-2.4) L D 10/23/21 03:14 Total Bilirubin 0.5 mg/dL (0.2-1.0) 10/23/21 03:14 AST 23 U/L (15-37) 10/23/21 03:14 ALT 29 U/L (12-78) 10/23/21 03:14 Alkaline Phosphatase 106 U/L (45-117) 10/23/21 03:14 Triglycerides 102 mg/dL (<150) 10/23/21 03:14 Cholesterol 88 mg/dL (<200) 10/23/21 03:14 HDL Cholesterol 25 mg/dL (40-60) L 10/23/21 03:14 Cholesterol/HDL Ratio 3.52 10/23/21 03:14 Home Medications: Aspirin [Aspirin EC 81 MG] 81 mg PO BEDTIME 10/07/21 Citalopram [Celexa*] 40 mg PO DAILY 10/07/21 Cyclobenzaprine [Flexeril*] 10 mg PO TID PRN 10/07/21 Esomeprazole Magnesium [Nexium 24Hr] 20 mg PO DAILY 10/07/21 Fish Oil/Dha/Epa [Fish Oil 1,200 mg Fish Oil] 2,400 mg PO BID 10/07/21 Insulin Glargine,Hum.rec.anlog [Toujeo Solostar] 20 unit SQ DAILY 10/07/21 Levothyroxine [Synthroid*] 50 mcg PO [id number] 10/07/21 Lisinopril [Zestril] 10 mg PO BEDTIME 10/07/21 Nitroglycerin 0.4 mg SL SEECOM PRN 10/07/21 Quetiapine [Seroquel*] 150 mg PO BEDTIME 10/07/21 Simvastatin 80 mg PO BEDTIME 10/07/21 Testost Cypionate [Depo-Testosterone*] 0.5 ml IM SEECOM 10/07/21 Bupropion *Xl* [Wellbutrin XL*] 300 mg PO DAILY #30 tab 10/09/21 Carvedilol [Coreg] 12.5 mg PO BID #60 10/09/21 Clopidogrel Bisulfate [Plavix*] 75 mg PO DAILY #30 10/09/21 Insulin NPH Hum/Reg Insulin Hm [Novolin 70-30 100 Unit/ml Vial] 50 unit SQ BID #30 ml 10/09/21 Oxycodone HCl/Acetaminophen [Percocet 5/325 Tab*] 1 tab PO Q6H PRN #20 tab 10/09/21 Docusate Sodium [Dulcolax Stool Softener] 100 mg PO DAILY 10/11/21 Furosemide [Lasix*] 40 mg PO DAILY 10/11/21 Potassium Chloride 20 meq PO Q48H 10/11/21 Apixaban [Eliquis] 5 mg PO SEECOM 30 Days #1 tab.ds.pk 10/12/21 Pantoprazole [Protonix Tab*] 40 mg PO ACB #30 tab 10/20/21 Sulfamethoxazole/Trimethoprim [Bactrim Ds Tablet] 1 each PO DAILY #5 tablet 10/20/21 Tamsulosin [Flomax*] 0.4 mg PO BID #60 cap 10/20/21 Physician Discharge Instructions: Transfer to [facility] Diet: AHA Activity: Fall precautions Followup: OOTOOT [Primary Care Provider] - Time spent managing pt's care (in minutes): 60
--- NOTE | 2021-10-26 07:34 | EKG ---
Test Date: 2021-10-23 Test Time: 11:22:10 Scaffold Erector: PHUONG MEASUREMENT RESULTS: Intervals: Rate: 114 MI: QRSD: 132 QT: 376 QTc: 518 [place]: P: MI: QRS: 50 T: 181 INTERPRETIVE STATEMENTS: Wide QRS rhythm Nonspecific intraventricular block Cannot rule out Anterior infarct, age undetermined T wave abnormality, consider inferolateral ischemia Abnormal ECG Compared to ECG 10/23/2021 00:20:35 Uncertain supraventricular rhythm now present T-wave abnormality now present Possible ischemia now present Sinus rhythm no longer present ST (T wave) deviation no longer present Prolonged QT interval no longer present Myocardial infarct finding still present Electronically Signed On 10-26-21 07:27:00 MEDICAL REVIEW SPECIALIST by Murray Gastelum
--- NOTE | 2021-10-26 07:35 | EKG ---
Test Date: 2021-10-23 Test Time: 00:20:35 Skate Maker: MEASUREMENT RESULTS: Intervals: Rate: 95 KS: 184 QRSD: 116 QT: 402 QTc: 505 [place]: P: 18 KS: 184 QRS: 84 T: 144 INTERPRETIVE STATEMENTS: Normal sinus rhythm Cannot rule out Anterior infarct, age undetermined Marked ST abnormality, possible lateral subendocardial injury Prolonged QT Abnormal ECG Compared to ECG 10/22/2021 10:14:40 ST (T wave) deviation now present Prolonged QT interval now present Myocardial infarct finding still present Electronically Signed On 10-26-21 07:27:04 MECHANICAL ENGINEERING TECHNICIAN by Murray Gastelum
== END 2021-10-23 16:50 | disposition short-term general hospital (02) | DRG 281 ==
LOC: ER 10:06 → ERHOLD 19:26
PROVIDERS: ADMIT Hospitalist; ATTEND Hospitalist
DX: I21.4 Non-ST elevation (NSTEMI) myocardial infarction (principal); N39.0 Urinary tract infection, site not specified; N18.4 Chronic kidney disease, stage 4 (severe); N17.9 Acute kidney failure, unspecified; I82.403 Acute embolism and thrombosis of unspecified deep veins of lower extremity, bilateral; E11.22 Type 2 diabetes mellitus with diabetic chronic kidney disease; I25.10 Atherosclerotic heart disease of native coronary artery without angina pectoris; I50.9 Heart failure, unspecified; E03.9 Hypothyroidism, unspecified; N40.0 Benign prostatic hyperplasia without lower urinary tract symptoms; Z95.5 Presence of coronary angioplasty implant and graft; Z95.1 Presence of aortocoronary bypass graft; Z20.822 Contact with and (suspected) exposure to COVID-19
CPT/HCPCS: 0240U; 36415; 70450; 71045; 72125; 80048; 80053; 80061; 80076; 81003; 81015; 82550; 82728; 82805; 82947; 83605; 83735; 83880; 84100; 84145; 84484; 85025; 85379; 85610; 85730; 86140; 87040; 87086; 87088; 93005; 96361; 96365; 99284; J0692; J1644; J1720; J1940; J3010; J3370; J7030; J7040; J7050; P9047

== ENCOUNTER 2021-12-10 08:13 | Inpatient (IN) | payer OTHER ==
--- OUTSIDE RECORDS SUMMARY | 2021-12-10 08:16 | XMS REPORT | Clinical Summary ---
:1960 Author Organization [facility] MD [facility] Address [address] [place] [address] Care Team Providers Name Role Phone Zahira Riley MD Unavailable Murtaza Dove MD Primary Care Provider Néstor Riley MD Unavailable Allergies No known active allergies Medications Medication Sig Dispensed Refills Start Date End Date Status NOVOLIN 70/30 100 unit/mL 0 11/17/2016 Active (70-30) injection lisinopril 0 11/12/2016 Active (PRINIVIL,ZESTRIL) 10 mg tablet citalopram (CeleXA) 40 mg 0 08/31/2016 Active tablet simvastatin (ZOCOR) 80 mg 0 09/13/2016 Active tablet cyclobenzaprine (FLEXERIL) 0 10/24/2016 Active 10 mg tablet warfarin (COUMADIN) 5 mg 7.5 mg daily. 0 09/13/2016 Active tablet furosemide (LASIX) 40 mg 0 09/13/2016 Active tablet QUEtiapine (SEROquel) 100 0 10/26/2016 Active mg tablet oxyCODONE-acetaminophen 0 10/24/2016 Active (PERCOCET) 10 mg-325 mg per tablet buPROPion (WELLBUTRIN XL) 0 10/24/2016 Active 150 mg 24 hr tablet potassium chloride 0 09/13/2016 Active (K-DUR,KLOR-JANNET M) 20 mEq tablet B-complex with vitamin C 0 07/02/2016 Active tablet aspirin 81 mg chewable 0 07/02/2016 Active tablet vitamin A 0 05/08/2016 Active palmitate-vitamin D2 10,000-400 unit tab levothyroxine (SYNTHROID, 0 08/23/2016 Active LEVOTHROID) 50 mcg tablet nitroglycerin (NITROSTAT) 0 08/23/2016 Active 0.4 mg SL tablet Active Problems Problem Noted Date 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 Cancer Staging: Clinical stage from 11/24: Stage III - Signed by Vita Dove MD on 11/24/2016 Medical History Medical History Date Comments 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 Social History Tobacco Use Types Packs/Day Years Used Date Never Assessed Sex Assigned at Date Recorded Not on file Obstetrics History Last Filed Vital Signs Not on file Plan of Treatment Health Maintenance Due Date Last Done Comments COVID-19 Vaccination (1) 1965 Results Not on fileafter 12/10/2020 Insurance Payer Benefit Plan / Subscriber ID Effective Dates Phone Addre ss Type Group HUMANA HUMANA CHOICE [id number] 2014-[place] [address] [address] Medicare [place] [phone] Care Teams Risk Analyst Relationship Specialty Start Date End Date Zahira Riley MD PCP - External Follow Up Family Practice 11/13/[address] [place] [address]. [place], [place] [address] Vita Dove PCP - General Lymphoma and Myeloma 10/08/16 [place] [address] [place] [id number] Zahira Riley MD PCP - External Referring Family Practice 10/08/[address] [place] [address]. [place]IT[place] MENDEZ [id number]
--- OUTSIDE RECORDS SUMMARY | 2021-12-10 08:28 | XMS REPORT | Continuity of Care Document ---
:1960 Author Organization [facility] t Address [address] [place] [address] Care Team Providers Name Role Phone Murtaza Dove MD Primary Care Physician GC_BAHC_Seiter_S Attending Clinician Unavailable APRIL Attending Clinician Unavailable Hari PRITCHARD Attending Clinician Unavailable GC_BAHC_Seiter_S Admitting Clinician Unavailable Hari PRITCHARD Admitting Clinician Unavailable Payers Payer Name Policy Type Policy Number Effective Date Expiration Date S fifi HUMANA - GOLD PLUS [id number] (MEDICARE REPLACEMENT HMO) HUMANA MEDICARE ADV [id number] 2021 00:00:00 Problems Condition Condition Condition Status Onset Resolution Last Treating Co mments Source Name Details Category Date Date Treatment Clinician Date 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 Clinician (SIG) Name Name NOVOLIN Yes MD 70/30 100 2-10 Anderso unit/mL 00:00: n (70-30) 00 injection lisinopril Yes (PRINIVIL,Z 2-05 Anderso ESTRIL) 10 00:00: n mg tablet 00 QUEtiapine Yes MD (SEROquel) 1-19 Anderso 100 mg 00:00: n tablet 00 oxyCODONE-a Yes cetaminophe -17 Anderso n 00:00: n (PERCOCET) 00 10 mg-325 mg per tablet buPROPion Yes (WELLBUTRIN 17 Anderso XL) 150 mg 00:00: n 24 hr 00 tablet cyclobenzap Yes rine -17 Anderso (FLEXERIL) 00:00: n 10 mg 00 tablet furosemide 2015-10 Yes (LASIX) 40 2-07 Anderso mg tablet 00:00: n 00 potassium 2015-10 Yes chloride 2-07 Anderso (K-DUR,KLOR 00:00: n -CON M) 20 00 mEq tablet simvastatin 2015-10 Yes (ZOCOR) 80 2-07 Anderso mg tablet 00:00: n 00 warfarin 2015-10 Yes 7.5mg 7.5 mg MD (COUMADIN) 2-07 daily. Anderso 5 mg tablet 00:00: n 00 citalopram 2015-10 Yes (CeleXA) 40 1-24 Anderso mg tablet 00:00: n 00 levothyroxi 2015-10 Yes ne 1-16 Anderso (SYNTHROID, 00:00: n LEVOTHROID) 00 50 mcg tablet nitroglycer 2015-10 Yes MD in -16 Anderso (NITROSTAT) 00:00: n 0.4 mg SL 00 tablet B-complex Yes MD with 9-25 Anderso vitamin C 00:00: n tablet 00 aspirin 81 Yes MD mg chewable 9-25 Anderso tablet 00:00: n 00 vitamin A Yes palmitate-v 8-01 Anderso itamin D2 00:00: n 10,000-400 00 unit tab Vital Signs Vital Name Observation Time Observation Value Comments Source WEIGHT 2021-11-28 09:56:00 103.465 kg WEIGHT 2021-11-26 10:00:00 107.956 kg WEIGHT 2021-11-24 08:38:00 106.641 kg WEIGHT 2021-11-22 11:00:00 108.455 kg WEIGHT 2021-11-21 14:40:00 108.773 kg WEIGHT 2021-11-20 09:30:00 107.684 kg WEIGHT 2021-11-18 09:46:00 106.232 kg WEIGHT 2021-11-16 11:20:00 104.781 kg WEIGHT 2021-11-08 04:00:00 107.3 kg WEIGHT 2021-11-07 04:00:00 107.2 kg WEIGHT 2021-11-06 04:30:00 106.9 kg WEIGHT 2021-11-05 06:00:00 111.9 kg WEIGHT 2021-10-27 18:32:00 110 kg WEIGHT 2021-10-25 08:00:00 116.5 kg WEIGHT 2021-10-23 17:24:00 111.585 kg HEIGHT 2021-10-23 17:24:00 182.9 cm WEIGHT 2021-11-28 09:56:00 103.465 kg WEIGHT 2021-11-26 10:00:00 107.956 kg WEIGHT 2021-11-24 08:38:00 106.641 kg WEIGHT 2021-11-22 11:00:00 108.455 kg WEIGHT 2021-11-21 14:40:00 108.773 kg WEIGHT 2021-11-20 09:30:00 107.684 kg WEIGHT 2021-11-18 09:46:00 106.232 kg WEIGHT 2021-11-16 11:20:00 104.781 kg WEIGHT 2021-11-08 04:00:00 107.3 kg WEIGHT 2021-11-07 04:00:00 107.2 kg WEIGHT 2021-11-06 04:30:00 106.9 kg WEIGHT 2021-11-05 06:00:00 111.9 kg WEIGHT 2021-10-27 18:32:00 110 kg WEIGHT 2021-10-25 08:00:00 116.5 kg WEIGHT 2021-10-23 17:24:00 111.585 kg HEIGHT 2021-10-23 17:24:00 182.9 cm Procedures This patient has no known procedures. Plan of Care Planned Activity Planned Date Details Comments Source Future Scheduled Test 1965 00:00:00 COVID-19 Vaccination MD Stephens (1) [code = COVID-19 Vaccination (1)] Encounters Start End Encounter Admission Attending Care Care Encounter Source Date/Time Date/Time Type Type Clinicians Facility Department ID 2021-12-01 2021-12-01 Outpatient [facility]Sei PRIV PRIV [id number] [facility] 05:45:00 05:45:00 ter_S [id number] Medica l 2021-11-30 2021-11-30 Outpatient GC_[facility]_Sei PRIV PRIV [id number] [facility] 11:37:00 11:37:00 ter_S [id number] Medica l 2021-10-23 2021-11-28 Inpatient ER APRIL, SLE Cardiac [id number] [facility] 18:29:00 14:33:00 EM Cath 2021-10-26 2021-10-26 Outpatient BCM BCM [id number] 00:00:00 23:59:00 Rad[facility] Results Test Description Test Time Test Comments Results Result Comments Source BLOOD CULTURE 2021-11-30 19:00:46 Test Item Value Reference Range Interpretation Comme nts CULTURE (BEAKER) (test code = 1095) No growth in 5 days BLOOD [id number] 19:00:46 Test Item Value Reference Range Interpretation Comments CULTURE (BEAKER) (test No growth in 5 days code = 1095) The specimen volume collected for this blood culture was below the optimum (10 mL per bottle or 20 mL total). Use of lower volumes may adversely affect recovery and/or detection times of some organisms.POCT-GLUCOSE [id number] 12:06:41 Test Item Value Reference Range Interpretation Comments POC-GLUCOSE METER 217 mg/dL 70-110 H : TESTED A T [facility] (BEAKER) (test code = [place], 1538) [id number]: Room Attendant/Techni stephanie ID = [id number] for MARIA E LR POCT-GLUCOSE [id number] 07:55:37 Test Item Value Reference Range Interpretation Comments POC-GLUCOSE METER 197 mg/dL 70-110 H : TESTED A T [facility] 6720 (BEAKER) (test code = [place], 1538) 45976: Room Attendant/Techni stephanie ID = [id number] for MARIA E LR HEPATIC FUNCTION [id number] 06:54:14 Test Item Value Reference Range Interpretation Comments TOTAL PROTEIN (BEAKER) (test code = 6.8 gm/dL 6.0-8.3 770) ALBUMIN (BEAKER) (test code = 1145) 2.9 g/dL 3.5-5.0 L BILIRUBIN TOTAL (BEAKER) (test code 0.5 mg/dL 0.2-1.2 = 377) BILIRUBIN DIRECT (BEAKER) (test 0.3 mg/dL 0.1-0.5 code = 706) ALKALINE PHOSPHATASE (BEAKER) (test 178 U/L 40-150 H code = 346) AST (SGOT) (BEAKER) (test code = 19 U/L 5-34 353) ALT (SGPT) (BEAKER) (test code = 20 U/L 6-55 347) Room Attendant ID Doug CHERY [id number] 06:54:13 Test Item Value Reference Range Interpretation Comments PHOSPHORUS (BEAKER) (test code = 4.8 mg/dL 2.3-4.7 H 604) Room Attendant ID Doug CHERY WBASIC METABOLIC [id number] 06:54:12 Test Item Value Reference Range Interpretation Comments SODIUM (BEAKER) 136 meq/L 136-145 (test code = 381) POTASSIUM (BEAKER) 3.8 meq/L 3.5-5.1 (test code = 379) CHLORIDE (BEAKER) 99 meq/L 98-107 (test code = 382) CO2 (BEAKER) (test 28 meq/L 22-29 code = 355) BLOOD UREA NITROGEN 34 mg/dL 7-21 H (BEAKER) (test code = 354) CREATININE (BEAKER) 1.80 mg/dL 0.57-1.25 H (test code = 358) GLUCOSE RANDOM 195 mg/dL 70-105 H (BEAKER) (test code = 652) CALCIUM (BEAKER) 9.1 mg/dL 8.4-10.2 (test code = 697) EGFR (BEAKER) (test 39 mL/min/1.73 ESTIMA LIVAN GFR IS code = 1092) sq m NOT ACCURATE CREATININE CLEARANCE IN PREDICTING GLOMERULAR FILTRATION RATE . ESTIMATED GFR I S NOT APPLICABLE FOR DIALYSIS PATIEN TS. Room Attendant ID - MIRI [id number] 06:54:12 Test Item Value Reference Range Interpretation Comments MAGNESIUM (BEAKER) (test code = 2.1 mg/dL 1.6-2.6 627) Room Attendant ID - MIRI WCBC W/PLT COUNT & AUTO [id number] 06:37:29 Test Item Value Reference Range Interpretation Comments WHITE BLOOD CELL COUNT (BEAKER) 6.9 K/ L 3.5-10.5 (test code = 775) RED BLOOD CELL COUNT (BEAKER) 3.61 M/ L 4.63-6.08 L (test code = 761) HEMOGLOBIN (BEAKER) (test code = 10.9 GM/DL 13.7-17.5 L 410) HEMATOCRIT (BEAKER) (test code = 36.7 % 40.1-51.0 L 411) MEAN CORPUSCULAR VOLUME (BEAKER) 101.7 fL 79.0-92.2 H (test code = 753) MEAN CORPUSCULAR HEMOGLOBIN 30.2 pg 25.7-32.2 (BEAKER) (test code = 751) MEAN CORPUSCULAR HEMOGLOBIN CONC 29.7 GM/DL 32.3-36.5 L (BEAKER) (test code = 752) RED CELL DISTRIBUTION WIDTH 16.2 % 11.6-14.4 H (BEAKER) (test code = 412) PLATELET COUNT (BEAKER) (test 417 K/CU MM 150-450 code = 756) MEAN PLATELET VOLUME (BEAKER) 9.1 fL 9.4-12.4 L (test code = 754) NUCLEATED RED BLOOD CELLS 0 /100 WBC 0-0 (BEAKER) (test code = 413) NEUTROPHILS RELATIVE PERCENT 53 % (BEAKER) (test code = 429) LYMPHOCYTES RELATIVE PERCENT 31 % (BEAKER) (test code = 430) MONOCYTES RELATIVE PERCENT 12 % (BEAKER) (test code = 431) EOSINOPHILS RELATIVE PERCENT 3 % (BEAKER) (test code = 432) BASOPHILS RELATIVE PERCENT 1 % (BEAKER) (test code = 437) NEUTROPHILS ABSOLUTE COUNT 3.63 K/ L 1.78-5.38 (BEAKER) (test code = 670) LYMPHOCYTES ABSOLUTE COUNT 2.13 K/ L 1.32-3.57 (BEAKER) (test code = 414) MONOCYTES ABSOLUTE COUNT (BEAKER) 0.79 K/ L 0.30-0.82 (test code = 415) EOSINOPHILS ABSOLUTE COUNT 0.20 K/ L 0.04-0.54 (BEAKER) (test code = 416) BASOPHILS ABSOLUTE COUNT (BEAKER) 0.08 K/ L 0.01-0.08 (test code = 417) IMMATURE GRANULOCYTES-RELATIVE 1 % 0-1 PERCENT (BEAKER) (test code = 2801) POCT-GLUCOSE [id number] 20:43:34 Test Item Value Reference Range Interpretation Comments POC-GLUCOSE METER 115 mg/dL 70-110 H : TESTED A T [facility] 6720 (BEAKER) (test code = [facility], [facility]) [id number]: Room Attendant/Techni stephanie ID = [id number] for Re Sa frederickiry POCT-GLUCOSE [id number] 17:19:38 Test Item Value Reference Range Interpretation Comments POC-GLUCOSE METER 122 mg/dL 70-110 H : TESTED A T [facility] 6720 (BEAKER) (test code = [facility], [facility]) 69987: Room Attendant/Techni stephanie ID = [id number] for KIZHAKEKATTIL, DEBRA POCT-GLUCOSE [id number] 12:30:32 Test Item Value Reference Range Interpretation Comments POC-GLUCOSE METER 233 mg/dL 70-110 H : TESTED A T [facility] 6720 (BEAKER) (test code = [facility], 1538) 19564: Room Attendant/Techni stephanie ID = [id number] for KIZHAKEKATTIL, DEBRA POCT-GLUCOSE [id number] 08:17:18 Test Item Value Reference Range Interpretation Comments POC-GLUCOSE METER 182 mg/dL 70-110 H : TESTED A T [facility] 6720 (BEAKER) (test code = [facility], [facility]) 50496: Room Attendant/Techni stephanie ID = [id number] for DEBRA REID HEPATIC FUNCTION [id number] 08:15:38 Test Item Value Reference Range Interpretation Comments TOTAL PROTEIN (BEAKER) (test code = 6.6 gm/dL 6.0-8.3 770) ALBUMIN (BEAKER) (test code = 1145) 2.8 g/dL 3.5-5.0 L BILIRUBIN TOTAL (BEAKER) (test code 0.5 mg/dL 0.2-1.2 = 377) BILIRUBIN DIRECT (BEAKER) (test 0.3 mg/dL 0.1-0.5 code = 706) ALKALINE PHOSPHATASE (BEAKER) (test 173 U/L 40-150 H code = 346) AST (SGOT) (BEAKER) (test code = 19 U/L 5-34 353) ALT (SGPT) (BEAKER) (test code = 17 U/L 6-55 347) Room Attendant ID - PANTERA [id number] 08:15:37 Test Item Value Reference Range Interpretation Comments MAGNESIUM (BEAKER) (test code = 1.9 mg/dL 1.6-2.6 627) Room Attendant ID - PANTERA [id number] 08:15:37 Test Item Value Reference Range Interpretation Comments PHOSPHORUS (BEAKER) (test code = 4.1 mg/dL 2.3-4.7 604) Room Attendant ID - PANTERA MBASIC METABOLIC [id number] 08:15:36 Test Item Value Reference Range Interpretation Comments SODIUM (BEAKER) 136 meq/L 136-145 (test code = 381) POTASSIUM (BEAKER) 3.5 meq/L 3.5-5.1 (test code = 379) CHLORIDE (BEAKER) 102 meq/L 98-107 (test code = 382) CO2 (BEAKER) (test 26 meq/L 22-29 code = 355) BLOOD UREA NITROGEN 31 mg/dL 7-21 H (BEAKER) (test code = 354) CREATININE (BEAKER) 1.65 mg/dL 0.57-1.25 H (test code = 358) GLUCOSE RANDOM 191 mg/dL 70-105 H (BEAKER) (test code = 652) CALCIUM (BEAKER) 8.8 mg/dL 8.4-10.2 (test code = 697) EGFR (BEAKER) (test 43 mL/min/1.73 ESTIMA LIVAN GFR IS code = 1092) sq m NOT ACCURATE CREATININE CLEARANCE IN PREDICTING GLOMERULAR FILTRATION RATE . ESTIMATED GFR I S NOT APPLICABLE FOR DIALYSIS PATIEN TS. Room Attendant ID - PANTERA MCBC W/PLT COUNT & AUTO [id number] 07:57:49 Test Item Value Reference Range Interpretation Comments WHITE BLOOD CELL COUNT (BEAKER) 6.5 K/ L 3.5-10.5 (test code = 775) RED BLOOD CELL COUNT (BEAKER) 3.35 M/ L 4.63-6.08 L (test code = 761) HEMOGLOBIN (BEAKER) (test code = 10.0 GM/DL 13.7-17.5 L 410) HEMATOCRIT (BEAKER) (test code = 34.0 % 40.1-51.0 L 411) MEAN CORPUSCULAR VOLUME (BEAKER) 101.5 fL 79.0-92.2 H (test code = 753) MEAN CORPUSCULAR HEMOGLOBIN 29.9 pg 25.7-32.2 (BEAKER) (test code = 751) MEAN CORPUSCULAR HEMOGLOBIN CONC 29.4 GM/DL 32.3-36.5 L (BEAKER) (test code = 752) RED CELL DISTRIBUTION WIDTH 16.3 % 11.6-14.4 H (BEAKER) (test code = 412) PLATELET COUNT (BEAKER) (test 400 K/CU MM 150-450 code = 756) MEAN PLATELET VOLUME (BEAKER) 9.1 fL 9.4-12.4 L (test code = 754) NUCLEATED RED BLOOD CELLS 0 /100 WBC 0-0 (BEAKER) (test code = 413) NEUTROPHILS RELATIVE PERCENT 59 % (BEAKER) (test code = 429) LYMPHOCYTES RELATIVE PERCENT 25 % (BEAKER) (test code = 430) MONOCYTES RELATIVE PERCENT 12 % (BEAKER) (test code = 431) EOSINOPHILS RELATIVE PERCENT 3 % (BEAKER) (test code = 432) BASOPHILS RELATIVE PERCENT 1 % (BEAKER) (test code = 437) NEUTROPHILS ABSOLUTE COUNT 3.80 K/ L 1.78-5.38 (BEAKER) (test code = 670) LYMPHOCYTES ABSOLUTE COUNT 1.64 K/ L 1.32-3.57 (BEAKER) (test code = 414) MONOCYTES ABSOLUTE COUNT (BEAKER) 0.77 K/ L 0.30-0.82 (test code = 415) EOSINOPHILS ABSOLUTE COUNT 0.16 K/ L 0.04-0.54 (BEAKER) (test code = 416) BASOPHILS ABSOLUTE COUNT (BEAKER) 0.06 K/ L 0.01-0.08 (test code = 417) IMMATURE GRANULOCYTES-RELATIVE 1 % 0-1 PERCENT (BEAKER) (test code = 2801) POCT-GLUCOSE [id number] 21:14:48 Test Item Value Reference Range Interpretation Comments POC-GLUCOSE METER 138 mg/dL 70-110 H : TESTED A T [facility] 6720 (BEAKER) (test code = [facility], 1538) [id number]: Room Attendant/Techni stephanie ID = [id number] for Pauline Morel POCT-GLUCOSE [id number] 17:27:56 Test Item Value Reference Range Interpretation Comments POC-GLUCOSE METER 162 mg/dL 70-110 H : TESTED A T [facility] 6720 (BEAKER) (test code = [facility], 1538) 69774: Room Attendant/Techni stephanie ID = [id number] for DEBRA REID POCT-GLUCOSE [id number] 12:46:39 Test Item Value Reference Range Interpretation Comments POC-GLUCOSE METER 189 mg/dL 70-110 H : TESTED A T [facility] 6720 (BEAKER) (test code = [facility], 1538) 91370: Room Attendant/Techni stephanie ID = [id number] for DEBRA REID HEPATIC FUNCTION [id number] 07:37:51 Test Item Value Reference Range Interpretation Comments TOTAL PROTEIN (BEAKER) (test code = 6.7 gm/dL 6.0-8.3 770) ALBUMIN (BEAKER) (test code = 1145) 2.9 g/dL 3.5-5.0 L BILIRUBIN TOTAL (BEAKER) (test code 0.7 mg/dL 0.2-1.2 = 377) BILIRUBIN DIRECT (BEAKER) (test 0.3 mg/dL 0.1-0.5 code = 706) ALKALINE PHOSPHATASE (BEAKER) (test 185 U/L 40-150 H code = 346) AST (SGOT) (BEAKER) (test code = 20 U/L 5-34 353) ALT (SGPT) (BEAKER) (test code = 21 U/L 6-55 347) Room Attendant ID - PANTERA [id number] 07:37:50 Test Item Value Reference Range Interpretation Comments PHOSPHORUS (BEAKER) (test code = 3.3 mg/dL 2.3-4.7 604) Room Attendant ID - PANTERA [id number] 07:37:49 Test Item Value Reference Range Interpretation Comments MAGNESIUM (BEAKER) (test code = 1.9 mg/dL 1.6-2.6 627) Room Attendant ID - PANTERA MBASIC METABOLIC [id number] 07:37:49 Test Item Value Reference Range Interpretation Comments SODIUM (BEAKER) 135 meq/L 136-145 L (test code = 381) POTASSIUM (BEAKER) 4.2 meq/L 3.5-5.1 (test code = 379) CHLORIDE (BEAKER) 103 meq/L 98-107 (test code = 382) CO2 (BEAKER) (test 25 meq/L 22-29 code = 355) BLOOD UREA NITROGEN 29 mg/dL 7-21 H (BEAKER) (test code = 354) CREATININE (BEAKER) 1.52 mg/dL 0.57-1.25 H (test code = 358) GLUCOSE RANDOM 154 mg/dL 70-105 H (BEAKER) (test code = 652) CALCIUM (BEAKER) 8.6 mg/dL 8.4-10.2 (test code = 697) EGFR (BEAKER) (test 47 mL/min/1.73 ESTIMA LIVAN GFR IS code = 1092) sq m NOT ACCURATE CREATININE CLEARANCE IN PREDICTING GLOMERULAR FILTRATION RATE . ESTIMATED GFR I S NOT APPLICABLE FOR DIALYSIS PATIEN TS. Room Attendant ID - PANTERA MPOCT-GLUCOSE [id number] 07:19:32 Test Item Value Reference Range Interpretation Comments POC-GLUCOSE METER 169 mg/dL 70-110 H : TESTED A T [facility] (BEAKER) (test code = [place], 1538) 6[address]: Room Attendant/Techni stephanie ID = [id number] for DEBRA REID CBC W/PLT COUNT & AUTO [id number] 07:07:46 Test Item Value Reference Range Interpretation Comments WHITE BLOOD CELL COUNT (BEAKER) 9.6 K/ L 3.5-10.5 (test code = 775) RED BLOOD CELL COUNT (BEAKER) 3.30 M/ L 4.63-6.08 L (test code = 761) HEMOGLOBIN (BEAKER) (test code = 10.1 GM/DL 13.7-17.5 L 410) HEMATOCRIT (BEAKER) (test code = 32.9 % 40.1-51.0 L 411) MEAN CORPUSCULAR VOLUME (BEAKER) 99.7 fL 79.0-92.2 H (test code = 753) MEAN CORPUSCULAR HEMOGLOBIN 30.6 pg 25.7-32.2 (BEAKER) (test code = 751) MEAN CORPUSCULAR HEMOGLOBIN CONC 30.7 GM/DL 32.3-36.5 L (BEAKER) (test code = 752) RED CELL DISTRIBUTION WIDTH 16.4 % 11.6-14.4 H (BEAKER) (test code = 412) PLATELET COUNT (BEAKER) (test 412 K/CU MM 150-450 code = 756) MEAN PLATELET VOLUME (BEAKER) 9.1 fL 9.4-12.4 L (test code = 754) NUCLEATED RED BLOOD CELLS 0 /100 WBC 0-0 (BEAKER) (test code = 413) NEUTROPHILS RELATIVE PERCENT 71 % (BEAKER) (test code = 429) LYMPHOCYTES RELATIVE PERCENT 15 % (BEAKER) (test code = 430) MONOCYTES RELATIVE PERCENT 12 % (BEAKER) (test code = 431) EOSINOPHILS RELATIVE PERCENT 1 % (BEAKER) (test code = 432) BASOPHILS RELATIVE PERCENT 1 % (BEAKER) (test code = 437) NEUTROPHILS ABSOLUTE COUNT 6.78 K/ L 1.78-5.38 H (BEAKER) (test code = 670) LYMPHOCYTES ABSOLUTE COUNT 1.43 K/ L 1.32-3.57 (BEAKER) (test code = 414) MONOCYTES ABSOLUTE COUNT (BEAKER) 1.13 K/ L 0.30-0.82 H (test code = 415) EOSINOPHILS ABSOLUTE COUNT 0.13 K/ L 0.04-0.54 (BEAKER) (test code = 416) BASOPHILS ABSOLUTE COUNT (BEAKER) 0.05 K/ L 0.01-0.08 (test code = 417) IMMATURE GRANULOCYTES-RELATIVE 1 % 0-1 PERCENT (BEAKER) (test code = 2801) RAD, ABDOMEN/KUB, 1 VIEW [id number] 03:08:00Reason for exam:->abdominal painCH[facility] : 1960 Sex: MFINAL REPORT CLINICAL HISTORY: abdominal pain TECHNIQUE: RAD, ABDOMEN/KUB, 1 VIEW AP COMPARISON: Plain radiograph the abdomen dated 10/24/2021 FINDINGS: Nonobstructive bowel gas pattern without distended loops of bowel. Large stool burden throughout the large bowel. Vascularcalcifications. Postsurgical changes of a median sternotomy. IVC filter overlies the right lumbar spine. Lung bases are clear. Signed: Gris Mendiola Verified Date/Time: 11/26/2021 03:08:36 URINALYSIS W/ REFLEX URINE CULTURE 2021-11-25 21:50:21 Test Item Value Reference Range Interpretation Comments COLOR (BEAKER) (test code = 470) Yellow CLARITY (BEAKER) (test code = 469) Clear SPECIFIC GRAVITY UA (BEAKER) (test 1.014 1.001-1.035 code = 468) PH UA (BEAKER) (test code = 467) 6.0 5.0-8.0 PROTEIN UA (BEAKER) (test code = Negative Negative 464) GLUCOSE UA (BEAKER) (test code = 1000 mg/dL Negative A 365) KETONES UA (BEAKER) (test code = Negative Negative 371) BILIRUBIN UA (BEAKER) (test code = Negative Negative 462) BLOOD UA (BEAKER) (test code = Negative Negative 461) NITRITE UA (BEAKER) (test code = Negative Negative 465) LEUKOCYTE ESTERASE UA (BEAKER) Negative Negative (test code = 466) UROBILINOGEN UA (BEAKER) (test 0.2 mg/dL 0.2-1.0 code = 463) RBC UA (BEAKER) (test code = 519) < /HPF WBC UA (BEAKER) (test code = 520) 1 /HPF BACTERIA (BEAKER) (test code = Rare 517) SQUAMOUS EPITHELIAL (BEAKER) (test < /HPF code = 516) CRYSTALS, URINE (BEAKER) (test None Seen code = 1521) SOURCE(BEAKER) (test code = 2795) Room Attendant ID - [auto]Room Attendant ID - techPOCT-GLUCOSE [id number] 21:39:08 Test Item Value Reference Range Interpretation Comments POC-GLUCOSE METER 156 mg/dL 70-110 H : TESTED A T [facility] 6720 (BEAKER) (test code = [facility], 153) 33312: Room Attendant/Techni stephanie ID = [id number] for Deniz Morela POCT-GLUCOSE [id number] 17:24:17 Test Item Value Reference Range Interpretation Comments POC-GLUCOSE METER 192 mg/dL 70-110 H : TESTED A T [facility] 6720 (BEAKER) (test code = [facility], 153) 71382: Room Attendant/Techni stephanie ID = [id number] for RIRINIKOLAS ROSENCY RAD, CHEST, 1 VIEW, NON [id number] 14:59:00Reason for exam:->sobShould this be performed at the bedside?->Yes [facility] 1960 Sex: MFINAL REPORT CLINICAL HISTORY: sob TECHNIQUE: 1 view of the chest. COMPARISON: 11/08/2021 IMPRESSION: There are no focal infiltrates or effusions. The cardiomediastinal silhouette is magnified by technique with sternotomy wires. Signed: Yvette Binghameport Verified Date/Time: 11/25/2021 14:59:07 Reading Location: [facility] Radiology Reading Room POCT-GLUCOSE METER 2021-11-25 12:57:11 Test Item Value Reference Range Interpretation Comments POC-GLUCOSE METER 267 mg/dL 70-110 H : TESTED A T [facility] 6720 (BEAKER) (test code = [facility], 1538) [id number]: Room Attendant/Techni stephanie ID = [id number] for DEBRA REID POCT-GLUCOSE [id number] 08:16:53 Test Item Value Reference Range Interpretation Comments POC-GLUCOSE METER 165 mg/dL 70-110 H : TESTED A T [facility] 6720 (BEAKER) (test code = [facility], 1538) [id number]: Room Attendant/Techni stephanie ID = [id number] for DEBRA REID [id number] 04:56:21 Test Item Value Reference Range Interpretation Comments PHOSPHORUS (BEAKER) (test code = 3.9 mg/dL 2.3-4.7 604) Room Attendant ID - EFE GHEPATIC FUNCTION [id number] 04:56:21 Test Item Value Reference Range Interpretation Comments TOTAL PROTEIN (BEAKER) (test code = 6.2 gm/dL 6.0-8.3 770) ALBUMIN (BEAKER) (test code = 1145) 2.7 g/dL 3.5-5.0 L BILIRUBIN TOTAL (BEAKER) (test code 0.4 mg/dL 0.2-1.2 = 377) BILIRUBIN DIRECT (BEAKER) (test 0.2 mg/dL 0.1-0.5 code = 706) ALKALINE PHOSPHATASE (BEAKER) (test 174 U/L 40-150 H code = 346) AST (SGOT) (BEAKER) (test code = 21 U/L 5-34 353) ALT (SGPT) (BEAKER) (test code = 20 U/L 6-55 347) Room Attendant ID Doug CHOASIC METABOLIC [id number] 04:56:20 Test Item Value Reference Range Interpretation Comments SODIUM (BEAKER) 137 meq/L 136-145 (test code = 381) POTASSIUM (BEAKER) 3.9 meq/L 3.5-5.1 (test code = 379) CHLORIDE (BEAKER) 104 meq/L 98-107 (test code = 382) CO2 (BEAKER) (test 25 meq/L 22-29 code = 355) BLOOD UREA NITROGEN 25 mg/dL 7-21 H (BEAKER) (test code = 354) CREATININE (BEAKER) 1.75 mg/dL 0.57-1.25 H (test code = 358) GLUCOSE RANDOM 195 mg/dL 70-105 H (BEAKER) (test code = 652) CALCIUM (BEAKER) 8.5 mg/dL 8.4-10.2 (test code = 697) EGFR (BEAKER) (test 40 mL/min/1.73 ESTIMA LIVAN GFR IS code = 1092) sq m NOT ACCURATE CREATININE CLEARANCE IN PREDICTING GLOMERULAR FILTRATION RATE . ESTIMATED GFR I S NOT APPLICABLE FOR DIALYSIS PATIEN TS. Room Attendant ID - EFE [id number] 04:56:20 Test Item Value Reference Range Interpretation Comments MAGNESIUM (BEAKER) (test code = 1.9 mg/dL 1.6-2.6 627) Room Attendant ID - EFE GB-TYPE NATRIURETIC FACTOR (BNP)2021-11-25 04:47:51 Test Item Value Reference Range Interpretation Comments B-TYPE NATRIURETIC PEPTIDE (BEAKER) 938 pg/mL 0-100 H (test code = 700) Room Attendant ID - EFE GCBC W/PLT COUNT & AUTO [id number] 04:25:19 Test Item Value Reference Range Interpretation Comments WHITE BLOOD CELL COUNT (BEAKER) 9.7 K/ L 3.5-10.5 (test code = 775) RED BLOOD CELL COUNT (BEAKER) 3.16 M/ L 4.63-6.08 L (test code = 761) HEMOGLOBIN (BEAKER) (test code = 9.8 GM/DL 13.7-17.5 L 410) HEMATOCRIT (BEAKER) (test code = 32.7 % 40.1-51.0 L 411) MEAN CORPUSCULAR VOLUME (BEAKER) 103.5 fL 79.0-92.2 H (test code = 753) MEAN CORPUSCULAR HEMOGLOBIN 31.0 pg 25.7-32.2 (BEAKER) (test code = 751) MEAN CORPUSCULAR HEMOGLOBIN CONC 30.0 GM/DL 32.3-36.5 L (BEAKER) (test code = 752) RED CELL DISTRIBUTION WIDTH 16.8 % 11.6-14.4 H (BEAKER) (test code = 412) PLATELET COUNT (BEAKER) (test 414 K/CU MM 150-450 code = 756) MEAN PLATELET VOLUME (BEAKER) 9.3 fL 9.4-12.4 L (test code = 754) NUCLEATED RED BLOOD CELLS 0 /100 WBC 0-0 (BEAKER) (test code = 413) NEUTROPHILS RELATIVE PERCENT 62 % (BEAKER) (test code = 429) LYMPHOCYTES RELATIVE PERCENT 25 % (BEAKER) (test code = 430) MONOCYTES RELATIVE PERCENT 10 % (BEAKER) (test code = 431) EOSINOPHILS RELATIVE PERCENT 1 % (BEAKER) (test code = 432) BASOPHILS RELATIVE PERCENT 1 % (BEAKER) (test code = 437) NEUTROPHILS ABSOLUTE COUNT 6.00 K/ L 1.78-5.38 H (BEAKER) (test code = 670) LYMPHOCYTES ABSOLUTE COUNT 2.39 K/ L 1.32-3.57 (BEAKER) (test code = 414) MONOCYTES ABSOLUTE COUNT (BEAKER) 1.00 K/ L 0.30-0.82 H (test code = 415) EOSINOPHILS ABSOLUTE COUNT 0.10 K/ L 0.04-0.54 (BEAKER) (test code = 416) BASOPHILS ABSOLUTE COUNT (BEAKER) 0.07 K/ L 0.01-0.08 (test code = 417) IMMATURE GRANULOCYTES-RELATIVE 1 % 0-1 PERCENT (BEAKER) (test code = 2801) POCT-GLUCOSE [id number] 21:13:33 Test Item Value Reference Range Interpretation Comments POC-GLUCOSE METER 100 mg/dL 70-110 : TESTED A T [facility] 6720 (BEAKER) (test code = [facility], 1538) 57042: Room Attendant/Techni stephanie ID = [id number] for RO NHAN ROBBINSO POCT-GLUCOSE [id number] 17:39:46 Test Item Value Reference Range Interpretation Comments POC-GLUCOSE METER 80 mg/dL 70-110 : TESTED A T [facility] 6720 (BEAKER) (test code = [facility], 1538) 87404: Room Attendant/Techni stephanie ID = [id number] for Halie Berrya POCT-GLUCOSE [id number] 13:07:43 Test Item Value Reference Range Interpretation Comments POC-GLUCOSE METER 159 mg/dL 70-110 H : TESTED A T [facility] 6720 (BEAKER) (test code = [facility], 1538) 50273: Room Attendant/Techni stephanie ID = [id number] for Mckenzie Gardnerssa POCT-GLUCOSE [id number] 08:53:49 Test Item Value Reference Range Interpretation Comments POC-GLUCOSE METER 248 mg/dL 70-110 H : TESTED A T [facility] 6720 (BEAKER) (test code = [facility], 1538) 78671: Room Attendant/Techni stephanie ID = [id number] for Halie Gardnera [id number] 04:37:19 Test Item Value Reference Range Interpretation Comments PHOSPHORUS (BEAKER) (test code = 4.0 mg/dL 2.3-4.7 604) Room Attendant ID - BSHEPATIC FUNCTION [id number] 04:37:19 Test Item Value Reference Range Interpretation Comments TOTAL PROTEIN (BEAKER) (test code = 6.4 gm/dL 6.0-8.3 770) ALBUMIN (BEAKER) (test code = 1145) 2.9 g/dL 3.5-5.0 L BILIRUBIN TOTAL (BEAKER) (test code 0.4 mg/dL 0.2-1.2 = 377) BILIRUBIN DIRECT (BEAKER) (test 0.2 mg/dL 0.1-0.5 code = 706) ALKALINE PHOSPHATASE (BEAKER) (test 181 U/L 40-150 H code = 346) AST (SGOT) (BEAKER) (test code = 22 U/L 5-34 353) ALT (SGPT) (BEAKER) (test code = 21 U/L 6-55 347) Room Attendant ID - BSBASIC METABOLIC [id number] 04:37:18 Test Item Value Reference Range Interpretation Comments SODIUM (BEAKER) 134 meq/L 136-145 L (test code = 381) POTASSIUM (BEAKER) 4.4 meq/L 3.5-5.1 (test code = 379) CHLORIDE (BEAKER) 104 meq/L 98-107 (test code = 382) CO2 (BEAKER) (test 23 meq/L 22-29 code = 355) BLOOD UREA NITROGEN 23 mg/dL 7-21 H (BEAKER) (test code = 354) CREATININE (BEAKER) 1.72 mg/dL 0.57-1.25 H (test code = 358) GLUCOSE RANDOM 241 mg/dL 70-105 H (BEAKER) (test code = 652) CALCIUM (BEAKER) 8.4 mg/dL 8.4-10.2 (test code = 697) EGFR (BEAKER) (test 41 mL/min/1.73 ESTIMA LIVAN GFR IS code = 1092) sq m NOT ACCURATE CREATININE CLEARANCE IN PREDICTING GLOMERULAR FILTRATION RATE . ESTIMATED GFR I S NOT APPLICABLE FOR DIALYSIS PATIEN TS. Room Attendant ID - [id number] 04:37:18 Test Item Value Reference Range Interpretation Comments MAGNESIUM (BEAKER) (test code = 2.0 mg/dL 1.6-2.6 627) Room Attendant ID - BSCBC W/PLT COUNT & AUTO [id number] 03:57:41 Test Item Value Reference Range Interpretation Comments WHITE BLOOD CELL COUNT (BEAKER) 9.1 K/ L 3.5-10.5 (test code = 775) RED BLOOD CELL COUNT (BEAKER) 3.23 M/ L 4.63-6.08 L (test code = 761) HEMOGLOBIN (BEAKER) (test code = 9.9 GM/DL 13.7-17.5 L 410) HEMATOCRIT (BEAKER) (test code = 34.1 % 40.1-51.0 L 411) MEAN CORPUSCULAR VOLUME (BEAKER) 105.6 fL 79.0-92.2 H (test code = 753) MEAN CORPUSCULAR HEMOGLOBIN 30.7 pg 25.7-32.2 (BEAKER) (test code = 751) MEAN CORPUSCULAR HEMOGLOBIN CONC 29.0 GM/DL 32.3-36.5 L (BEAKER) (test code = 752) RED CELL DISTRIBUTION WIDTH 16.8 % 11.6-14.4 H (BEAKER) (test code = 412) PLATELET COUNT (BEAKER) (test 425 K/CU MM 150-450 code = 756) MEAN PLATELET VOLUME (BEAKER) 9.3 fL 9.4-12.4 L (test code = 754) NUCLEATED RED BLOOD CELLS 0 /100 WBC 0-0 (BEAKER) (test code = 413) NEUTROPHILS RELATIVE PERCENT 54 % (BEAKER) (test code = 429) LYMPHOCYTES RELATIVE PERCENT 32 % (BEAKER) (test code = 430) MONOCYTES RELATIVE PERCENT 11 % (BEAKER) (test code = 431) EOSINOPHILS RELATIVE PERCENT 2 % (BEAKER) (test code = 432) BASOPHILS RELATIVE PERCENT 1 % (BEAKER) (test code = 437) NEUTROPHILS ABSOLUTE COUNT 4.84 K/ L 1.78-5.38 (BEAKER) (test code = 670) LYMPHOCYTES ABSOLUTE COUNT 2.86 K/ L 1.32-3.57 (BEAKER) (test code = 414) MONOCYTES ABSOLUTE COUNT (BEAKER) 0.97 K/ L 0.30-0.82 H (test code = 415) EOSINOPHILS ABSOLUTE COUNT 0.18 K/ L 0.04-0.54 (BEAKER) (test code = 416) BASOPHILS ABSOLUTE COUNT (BEAKER) 0.08 K/ L 0.01-0.08 (test code = 417) IMMATURE GRANULOCYTES-RELATIVE 1 % 0-1 PERCENT (BEAKER) (test code = 2801) POCT-GLUCOSE [id number] 20:45:13 Test Item Value Reference Range Interpretation Comments POC-GLUCOSE METER 189 mg/dL 70-110 H : TESTED A T [facility] 6720 (BEAKER) (test code = [facility], 1538) 95259: Room Attendant/Techni stephanie ID = [id number] for LIBERTAD ROBBINS NEO POCT-GLUCOSE [id number] 16:52:18 Test Item Value Reference Range Interpretation Comments POC-GLUCOSE METER 223 mg/dL 70-110 H : TESTED A T [facility] 6720 (BEAKER) (test code = [facility], 1538) 72416: Room Attendant/Techni stephanie ID = [id number] for JAM MCMILLAN POCT-GLUCOSE [id number] 12:14:50 Test Item Value Reference Range Interpretation Comments POC-GLUCOSE METER 194 mg/dL 70-110 H : TESTED A T [facility] 6720 (BEAKER) (test code = [place], 1538) 71766: Room Attendant/Techni stephanie ID = [id number] for JAM MCMILLAN SARS-COV2/RT-PCR ([facility])2021-11-23 10:17:26 Test Item Value Reference Range Interpretation Comments SARS-COV2/RT-PCR (test Negative Not Detected, Negative, code = 9310985) See external report for linked test SARS-COV-2 PERFORMING LAB [facility] (test code = 4737390) Negative result for this test determines that SARS-CoV-2 RNA was not present in the specimen above the Limit of Detection (LOD). However, Negative results do not preclude SARS-CoV-2 infection and should not be used as the sole basis for treatment or patient management decisions. Negative results mustbe combined with clinical observations, patient history, and epidemiological information. A false negative result may occur if a specimen is improperly collected, transported or handled. A false negative result should be considered if patient's recent exposures or clinical presentation indicate that COVID-19 (SARS-CoV-2) is likely and diagnostic tests for other causes of illness are negative. Re-testing should be considered in cases of suspected false negatives.The limit of detection for this assay is 800 copies/mL.This SARS CoV-2 test is a real-time RT-PCR test intended for the qualitative detection of nucleic acid from SARS-CoV-2 in a nasopharyngeal swab specimen collected from individuals suspected of COVID-19 by their healthcare provider.This test has not been Food and Drug Administration (FDA) cleared or approved. This is a modified version of an approved Emergency Use Authorization (EUA) and is in the process of review by the FDA. Once authorized by the FDA, the issued EUA will be effective until the declaration that circumstances exist justifying the authorization of the emergency use of in vitro diagnostic tests for detection and/or diagnosis of COVID-19 is terminated under Section 564(b)(2) of the Act or the EUA is revoked under Section 564(g) of the Act.Fact Sheet for Healthcare Providers:https://www.[facility]/sites/default/files/product/documents/Fact_Sheaye pottsv_HW_Dgvytgnox_Fyyk_FOMV-GhX-8.pdfFact Sheet for Healthcare Patients:https://www.[facility]/sites/default/files/product/ documents/Fhab_Zwzqf_Bkiygcjf_Nsbj_OVLB-IqR-8.pdfPerforming Laboratory:[facility], [place] [address]UPSL-WKXLDJP METER 2021-11-23 08:30:53 Test Item Value Reference Range Interpretation Comments POC-GLUCOSE METER 163 mg/dL 70-110 H : TESTED Layla T [facility] 6720 (BEAKER) (test code = [facility], 1538) 52966: Room Attendant/Techni stephanie ID = [id number] for JAM MCMILLAN HEPATIC FUNCTION [id number] 05:15:32 Test Item Value Reference Range Interpretation Comments TOTAL PROTEIN (BEAKER) (test code = 6.4 gm/dL 6.0-8.3 770) ALBUMIN (BEAKER) (test code = 1145) 2.8 g/dL 3.5-5.0 L BILIRUBIN TOTAL (BEAKER) (test code 0.4 mg/dL 0.2-1.2 = 377) BILIRUBIN DIRECT (BEAKER) (test 0.2 mg/dL 0.1-0.5 code = 706) ALKALINE PHOSPHATASE (BEAKER) (test 183 U/L 40-150 H code = 346) AST (SGOT) (BEAKER) (test code = 22 U/L 5-34 353) ALT (SGPT) (BEAKER) (test code = 24 U/L 6-55 347) Room Attendant ID - PANTERA [id number] 05:15:31 Test Item Value Reference Range Interpretation Comments MAGNESIUM (BEAKER) (test code = 2.0 mg/dL 1.6-2.6 627) Room Attendant ID - PANTERA [id number] 05:15:31 Test Item Value Reference Range Interpretation Comments PHOSPHORUS (BEAKER) (test code = 3.8 mg/dL 2.3-4.7 604) Room Attendant ID - PANTERA MBASIC METABOLIC [id number] 05:15:30 Test Item Value Reference Range Interpretation Comments SODIUM (BEAKER) 136 meq/L 136-145 (test code = 381) POTASSIUM (BEAKER) 4.2 meq/L 3.5-5.1 (test code = 379) CHLORIDE (BEAKER) 104 meq/L 98-107 (test code = 382) CO2 (BEAKER) (test 25 meq/L 22-29 code = 355) BLOOD UREA NITROGEN 21 mg/dL 7-21 (BEAKER) (test code = 354) CREATININE (BEAKER) 1.51 mg/dL 0.57-1.25 H (test code = 358) GLUCOSE RANDOM 172 mg/dL 70-105 H (BEAKER) (test code = 652) CALCIUM (BEAKER) 8.4 mg/dL 8.4-10.2 (test code = 697) EGFR (BEAKER) (test 47 mL/min/1.73 ESTIMA LIVAN GFR IS code = 1092) sq m NOT ACCURATE CREATININE CLEARANCE IN PREDICTING GLOMERULAR FILTRATION RATE . ESTIMATED GFR I S NOT APPLICABLE FOR DIALYSIS PATIEN TS. Room Attendant ID - PANTERA MCBC W/PLT COUNT & AUTO [id number] 04:35:16 Test Item Value Reference Range Interpretation Comments WHITE BLOOD CELL COUNT (BEAKER) 8.4 K/ L 3.5-10.5 (test code = 775) RED BLOOD CELL COUNT (BEAKER) 3.16 M/ L 4.63-6.08 L (test code = 761) HEMOGLOBIN (BEAKER) (test code = 9.7 GM/DL 13.7-17.5 L 410) HEMATOCRIT (BEAKER) (test code = 32.7 % 40.1-51.0 L 411) MEAN CORPUSCULAR VOLUME (BEAKER) 103.5 fL 79.0-92.2 H (test code = 753) MEAN CORPUSCULAR HEMOGLOBIN 30.7 pg 25.7-32.2 (BEAKER) (test code = 751) MEAN CORPUSCULAR HEMOGLOBIN CONC 29.7 GM/DL 32.3-36.5 L (BEAKER) (test code = 752) RED CELL DISTRIBUTION WIDTH 17.0 % 11.6-14.4 H (BEAKER) (test code = 412) PLATELET COUNT (BEAKER) (test 457 K/CU MM 150-450 H code = 756) MEAN PLATELET VOLUME (BEAKER) 9.0 fL 9.4-12.4 L (test code = 754) NUCLEATED RED BLOOD CELLS 0 /100 WBC 0-0 (BEAKER) (test code = 413) NEUTROPHILS RELATIVE PERCENT 56 % (BEAKER) (test code = 429) LYMPHOCYTES RELATIVE PERCENT 29 % (BEAKER) (test code = 430) MONOCYTES RELATIVE PERCENT 11 % (BEAKER) (test code = 431) EOSINOPHILS RELATIVE PERCENT 2 % (BEAKER) (test code = 432) BASOPHILS RELATIVE PERCENT 1 % (BEAKER) (test code = 437) NEUTROPHILS ABSOLUTE COUNT 4.69 K/ L 1.78-5.38 (BEAKER) (test code = 670) LYMPHOCYTES ABSOLUTE COUNT 2.44 K/ L 1.32-3.57 (BEAKER) (test code = 414) MONOCYTES ABSOLUTE COUNT (BEAKER) 0.90 K/ L 0.30-0.82 H (test code = 415) EOSINOPHILS ABSOLUTE COUNT 0.19 K/ L 0.04-0.54 (BEAKER) (test code = 416) BASOPHILS ABSOLUTE COUNT (BEAKER) 0.08 K/ L 0.01-0.08 (test code = 417) IMMATURE GRANULOCYTES-RELATIVE 1 % 0-1 PERCENT (BEAKER) (test code = 2801) POCT-GLUCOSE [id number] 20:41:20 Test Item Value Reference Range Interpretation Comments POC-GLUCOSE METER 171 mg/dL 70-110 H : TESTED A T [facility] 6720 (BEAKER) (test code = [facility], 153) 69515: Room Attendant/Techni stephanie ID = [id number] for DAVID FISHMAN POCT-GLUCOSE [id number] 17:23:57 Test Item Value Reference Range Interpretation Comments POC-GLUCOSE METER 244 mg/dL 70-110 H : TESTED A T [facility] 6720 (BEAKER) (test code = [facility], 153) 05008: Room Attendant/Techni stephanie ID = [id number] for DEBRA REID POCT-GLUCOSE [id number] 12:28:36 Test Item Value Reference Range Interpretation Comments POC-GLUCOSE METER 298 mg/dL 70-110 H : TESTED A T [facility] 6720 (BEAKER) (test code = [facility] [place], 1538) 66[address]: Room Attendant/Techni stephanie ID = [id number] for YAMILETH TELLO (Star)RAMIRO POCT-GLUCOSE [id number] 08:32:57 Test Item Value Reference Range Interpretation Comments POC-GLUCOSE METER 177 mg/dL 70-110 H : TESTED A T [facility] 6720 (BEAKER) (test code = [facility] [place], 1538) 95573: Room Attendant/Techni stephanie ID = [id number] for DEBRA REID [id number] 04:35:23 Test Item Value Reference Range Interpretation Comments PHOSPHORUS (BEAKER) (test code = 3.5 mg/dL 2.3-4.7 604) Room Attendant ID - MIRI WHEPATIC FUNCTION [id number] 04:35:23 Test Item Value Reference Range Interpretation Comments TOTAL PROTEIN (BEAKER) (test code = 6.8 gm/dL 6.0-8.3 770) ALBUMIN (BEAKER) (test code = 1145) 3.0 g/dL 3.5-5.0 L BILIRUBIN TOTAL (BEAKER) (test code 0.4 mg/dL 0.2-1.2 = 377) BILIRUBIN DIRECT (BEAKER) (test 0.2 mg/dL 0.1-0.5 code = 706) ALKALINE PHOSPHATASE (BEAKER) (test 195 U/L 40-150 H code = 346) AST (SGOT) (BEAKER) (test code = 23 U/L 5-34 353) ALT (SGPT) (BEAKER) (test code = 24 U/L 6-55 347) Room Attendant ID - MIRI WBASIC METABOLIC [id number] 04:35:22 Test Item Value Reference Range Interpretation Comments SODIUM (BEAKER) 136 meq/L 136-145 (test code = 381) POTASSIUM (BEAKER) 4.4 meq/L 3.5-5.1 (test code = 379) CHLORIDE (BEAKER) 105 meq/L 98-107 (test code = 382) CO2 (BEAKER) (test 23 meq/L 22-29 code = 355) BLOOD UREA NITROGEN 23 mg/dL 7-21 H (BEAKER) (test code = 354) CREATININE (BEAKER) 1.50 mg/dL 0.57-1.25 H (test code = 358) GLUCOSE RANDOM 221 mg/dL 70-105 H (BEAKER) (test code = 652) CALCIUM (BEAKER) 8.8 mg/dL 8.4-10.2 (test code = 697) EGFR (BEAKER) (test 48 mL/min/1.73 ESTIMA LIVAN GFR IS code = 1092) sq m NOT ACCURATE CREATININE CLEARANCE IN PREDICTING GLOMERULAR FILTRATION RATE . ESTIMATED GFR I S NOT APPLICABLE FOR DIALYSIS PATIEN TS. Room Attendant ID - MIRI [id number] 04:35:22 Test Item Value Reference Range Interpretation Comments MAGNESIUM (BEAKER) (test code = 2.0 mg/dL 1.6-2.6 627) Room Attendant ID - MIRI WCBC W/PLT COUNT & AUTO [id number] 04:07:51 Test Item Value Reference Range Interpretation Comments WHITE BLOOD CELL COUNT (BEAKER) 9.3 K/ L 3.5-10.5 (test code = 775) RED BLOOD CELL COUNT (BEAKER) 3.10 M/ L 4.63-6.08 L (test code = 761) HEMOGLOBIN (BEAKER) (test code = 9.6 GM/DL 13.7-17.5 L 410) HEMATOCRIT (BEAKER) (test code = 32.3 % 40.1-51.0 L 411) MEAN CORPUSCULAR VOLUME (BEAKER) 104.2 fL 79.0-92.2 H (test code = 753) MEAN CORPUSCULAR HEMOGLOBIN 31.0 pg 25.7-32.2 (BEAKER) (test code = 751) MEAN CORPUSCULAR HEMOGLOBIN CONC 29.7 GM/DL 32.3-36.5 L (BEAKER) (test code = 752) RED CELL DISTRIBUTION WIDTH 17.0 % 11.6-14.4 H (BEAKER) (test code = 412) PLATELET COUNT (BEAKER) (test 481 K/CU MM 150-450 H code = 756) MEAN PLATELET VOLUME (BEAKER) 8.9 fL 9.4-12.4 L (test code = 754) NUCLEATED RED BLOOD CELLS 0 /100 WBC 0-0 (BEAKER) (test code = 413) NEUTROPHILS RELATIVE PERCENT 56 % (BEAKER) (test code = 429) LYMPHOCYTES RELATIVE PERCENT 29 % (BEAKER) (test code = 430) MONOCYTES RELATIVE PERCENT 10 % (BEAKER) (test code = 431) EOSINOPHILS RELATIVE PERCENT 2 % (BEAKER) (test code = 432) BASOPHILS RELATIVE PERCENT 1 % (BEAKER) (test code = 437) NEUTROPHILS ABSOLUTE COUNT 5.25 K/ L 1.78-5.38 (BEAKER) (test code = 670) LYMPHOCYTES ABSOLUTE COUNT 2.74 K/ L 1.32-3.57 (BEAKER) (test code = 414) MONOCYTES ABSOLUTE COUNT (BEAKER) 0.93 K/ L 0.30-0.82 H (test code = 415) EOSINOPHILS ABSOLUTE COUNT 0.21 K/ L 0.04-0.54 (BEAKER) (test code = 416) BASOPHILS ABSOLUTE COUNT (BEAKER) 0.08 K/ L 0.01-0.08 (test code = 417) IMMATURE GRANULOCYTES-RELATIVE 1 % 0-1 PERCENT (BEAKER) (test code = 2801) POCT-GLUCOSE [id number] 21:15:31 Test Item Value Reference Range Interpretation Comments POC-GLUCOSE METER 177 mg/dL 70-110 H : TESTED A T [facility] 6720 (BEAKER) (test code = [facility], [facility]8) 98684: Room Attendant/Techni stephanie ID = [id number] for Re yes, Sairy POCT-GLUCOSE [id number] 17:21:31 Test Item Value Reference Range Interpretation Comments POC-GLUCOSE METER 139 mg/dL 70-110 H : TESTED A T [facility] 6720 (BEAKER) (test code = [facility], 1538) 38261: Room Attendant/Techni stephanie ID = [id number] for KIZHAKEKATTIL, DEBRA POCT-GLUCOSE [id number] 12:56:15 Test Item Value Reference Range Interpretation Comments POC-GLUCOSE METER 208 mg/dL 70-110 H : TESTED A T [facility] 6720 (BEAKER) (test code = [facility], 1538) 00539: Room Attendant/Techni stephanie ID = [id number] for KIZHAKEKATTIL, DEBRA POCT-GLUCOSE [id number] 10:52:07 Test Item Value Reference Range Interpretation Comments POC-GLUCOSE METER 289 mg/dL 70-110 H : TESTED A T [facility] 6720 (BEAKER) (test code = [facility] [place], 1538) 55781: Room Attendant/Techni stephanie ID = [id number] for YAMILETH TELLO (Star)RAMIRO POCT-GLUCOSE [id number] 08:52:22 Test Item Value Reference Range Interpretation Comments POC-GLUCOSE METER 189 mg/dL 70-110 H : TESTED A T [facility] 6720 (BEAKER) (test code = [facility] [place], 1538) 85774: Room Attendant/Techni stephanie ID = [id number] for DEBRA REID [id number] 07:15:39 Test Item Value Reference Range Interpretation Comments PHOSPHORUS (BEAKER) (test code = 3.4 mg/dL 2.3-4.7 604) Room Attendant ID - DBHEPATIC FUNCTION [id number] 07:15:39 Test Item Value Reference Range Interpretation Comments TOTAL PROTEIN (BEAKER) (test code = 6.1 gm/dL 6.0-8.3 770) ALBUMIN (BEAKER) (test code = 1145) 2.7 g/dL 3.5-5.0 L BILIRUBIN TOTAL (BEAKER) (test code 0.5 mg/dL 0.2-1.2 = 377) BILIRUBIN DIRECT (BEAKER) (test 0.2 mg/dL 0.1-0.5 code = 706) ALKALINE PHOSPHATASE (BEAKER) (test 179 U/L 40-150 H code = 346) AST (SGOT) (BEAKER) (test code = 23 U/L 5-34 353) ALT (SGPT) (BEAKER) (test code = 22 U/L 6-55 347) Room Attendant ID - [id number] 07:15:38 Test Item Value Reference Range Interpretation Comments MAGNESIUM (BEAKER) (test code = 2.1 mg/dL 1.6-2.6 627) Room Attendant ID - DBBASIC METABOLIC [id number] 07:15:37 Test Item Value Reference Range Interpretation Comments SODIUM (BEAKER) 134 meq/L 136-145 L (test code = 381) POTASSIUM (BEAKER) 4.2 meq/L 3.5-5.1 (test code = 379) CHLORIDE (BEAKER) 106 meq/L 98-107 (test code = 382) CO2 (BEAKER) (test 24 meq/L 22-29 code = 355) BLOOD UREA NITROGEN 22 mg/dL 7-21 H (BEAKER) (test code = 354) CREATININE (BEAKER) 1.49 mg/dL 0.57-1.25 H (test code = 358) GLUCOSE RANDOM 240 mg/dL 70-105 H (BEAKER) (test code = 652) CALCIUM (BEAKER) 8.4 mg/dL 8.4-10.2 (test code = 697) EGFR (BEAKER) (test 48 mL/min/1.73 ESTIMA LIVAN GFR IS code = 1092) sq m NOT ACCURATE CREATININE CLEARANCE IN PREDICTING GLOMERULAR FILTRATION RATE . ESTIMATED GFR I S NOT APPLICABLE FOR DIALYSIS PATIEN TS. Room Attendant ID - DBCBC W/PLT COUNT & AUTO [id number] 06:52:22 Test Item Value Reference Range Interpretation Comments WHITE BLOOD CELL COUNT (BEAKER) 7.9 K/ L 3.5-10.5 (test code = 775) RED BLOOD CELL COUNT (BEAKER) 3.04 M/ L 4.63-6.08 L (test code = 761) HEMOGLOBIN (BEAKER) (test code = 9.2 GM/DL 13.7-17.5 L 410) HEMATOCRIT (BEAKER) (test code = 32.2 % 40.1-51.0 L 411) MEAN CORPUSCULAR VOLUME (BEAKER) 105.9 fL 79.0-92.2 H (test code = 753) MEAN CORPUSCULAR HEMOGLOBIN 30.3 pg 25.7-32.2 (BEAKER) (test code = 751) MEAN CORPUSCULAR HEMOGLOBIN CONC 28.6 GM/DL 32.3-36.5 L (BEAKER) (test code = 752) RED CELL DISTRIBUTION WIDTH 16.8 % 11.6-14.4 H (BEAKER) (test code = 412) PLATELET COUNT (BEAKER) (test 513 K/CU MM 150-450 H code = 756) MEAN PLATELET VOLUME (BEAKER) 9.0 fL 9.4-12.4 L (test code = 754) NUCLEATED RED BLOOD CELLS 0 /100 WBC 0-0 (BEAKER) (test code = 413) NEUTROPHILS RELATIVE PERCENT 58 % (BEAKER) (test code = 429) LYMPHOCYTES RELATIVE PERCENT 26 % (BEAKER) (test code = 430) MONOCYTES RELATIVE PERCENT 11 % (BEAKER) (test code = 431) EOSINOPHILS RELATIVE PERCENT 3 % (BEAKER) (test code = 432) BASOPHILS RELATIVE PERCENT 1 % (BEAKER) (test code = 437) NEUTROPHILS ABSOLUTE COUNT 4.56 K/ L 1.78-5.38 (BEAKER) (test code = 670) LYMPHOCYTES ABSOLUTE COUNT 2.07 K/ L 1.32-3.57 (BEAKER) (test code = 414) MONOCYTES ABSOLUTE COUNT (BEAKER) 0.83 K/ L 0.30-0.82 H (test code = 415) EOSINOPHILS ABSOLUTE COUNT 0.23 K/ L 0.04-0.54 (BEAKER) (test code = 416) BASOPHILS ABSOLUTE COUNT (BEAKER) 0.08 K/ L 0.01-0.08 (test code = 417) IMMATURE GRANULOCYTES-RELATIVE 2 % 0-1 H PERCENT (BEAKER) (test code = 2801) POCT-GLUCOSE [id number] 21:47:19 Test Item Value Reference Range Interpretation Comments POC-GLUCOSE METER 151 mg/dL 70-110 H : TESTED A T [facility] 6720 (BEAKER) (test code = [facility], 1538) [id number]: Room Attendant/Techni stephanie ID = [id number] for Co rtez, Pauline POCT-GLUCOSE [id number] 17:46:14 Test Item Value Reference Range Interpretation Comments POC-GLUCOSE METER 191 mg/dL 70-110 H : TESTED A T [facility] 6720 (BEAKER) (test code = [facility], 1538) [id number]: Room Attendant/Techni stephanie ID = [id number] for Ba rrera, Marly POCT-GLUCOSE [id number] 12:57:28 Test Item Value Reference Range Interpretation Comments POC-GLUCOSE METER 233 mg/dL 70-110 H : TESTED A T [facility] 6720 (BEAKER) (test code = [facility], 1538) 15235: Room Attendant/Techni stephanie ID = [id number] for Ba rrera, Marly POCT-GLUCOSE [id number] 09:00:53 Test Item Value Reference Range Interpretation Comments POC-GLUCOSE METER 176 mg/dL 70-110 H : TESTED A T [facility] 6720 (BEAKER) (test code = [facility] [place], 1538) [address]117: Room Attendant/Techni stephanie ID = [id number] for Marly Gardner HEPATIC FUNCTION [id number] 07:44:22 Test Item Value Reference Range Interpretation Comments TOTAL PROTEIN (BEAKER) (test code = 6.5 gm/dL 6.0-8.3 770) ALBUMIN (BEAKER) (test code = 1145) 2.8 g/dL 3.5-5.0 L BILIRUBIN TOTAL (BEAKER) (test code 0.4 mg/dL 0.2-1.2 = 377) BILIRUBIN DIRECT (BEAKER) (test 0.2 mg/dL 0.1-0.5 code = 706) ALKALINE PHOSPHATASE (BEAKER) (test 195 U/L 40-150 H code = 346) AST (SGOT) (BEAKER) (test code = 24 U/L 5-34 353) ALT (SGPT) (BEAKER) (test code = 26 U/L 6-55 347) Room Attendant ID - PONCHOALESHA Ledezmator ID - PIAYA L(CELLAVISION MANUAL DIFF)[id number] 07:43:10 Test Item Value Reference Range Interpretation Comments NEUTROPHILS - REL 72 % (CELLAVISION)(BEAKER) (test code = 2816) LYMPHOCYTES - REL 17 % (CELLAVISION)(BEAKER) (test code = 2817) MONOCYTES - REL 8 % (CELLAVISION)(BEAKER) (test code = 2818) MYELOCYTES - REL 1 % 0-0 H (CELLAVISION)(BEAKER) (test code = 2822) ATYPICAL LYMPHOCYTES - REL 2 % 0-0 H (CELLAVISION)(BEAKER) (test code = 2829) NEUTROPHILS - ABS 6.62 K/ul 1.78-5.38 H (CELLAVISION)(BEAKER) (test code = 2830) LYMPHOCYTES - ABS 1.56 K/ul 1.32-3.57 (CELLAVISION)(BEAKER) (test code = 2831) MONOCYTES - ABS 0.74 K/uL 0.30-0.82 (CELLAVISION)(BEAKER) (test code = 2832) MYELOCYTES-ABS 0.09 K/uL 0.00-0.00 H (CELLAVISION)(BEAKER) (test code = 2837) ATYPICAL LYMPHOCYTES - ABS 0.18 K/uL 0.00-0.00 H (CELLAVISION)(BEAKER) (test code = 2858) TOTAL COUNTED (BEAKER) (test code 100 = 1351) WBC MORPHOLOGY (BEAKER) (test Normal code = 487) GIANT PLATELETS (BEAKER) (test Present code = 313) POLYCHROMATOPHILLIC RBCS(BEAKER) 2+ moderate (test code = 478) ANISOCYTOSIS (BEAKER) (test code 1+ few = 961) MACROCYTES (BEAKER) (test code = 1+ few 964) ARTIFACT (CELLAVISION)(BEAKER) Present (test code = 3432) PLATELET CONCENTRATION Increased (CELLAVISION)(BEAKER) (test code = 3438) Room Attendant ID - jacob Martínez comments: Slide comments:CBC W/PLT COUNT & AUTO [id number] 07:43:04 Test Item Value Reference Range Interpretation Comments WHITE BLOOD CELL COUNT (BEAKER) 9.2 K/ L 3.5-10.5 (test code = 775) RED BLOOD CELL COUNT (BEAKER) 3.12 M/ L 4.63-6.08 L (test code = 761) HEMOGLOBIN (BEAKER) (test code = 9.5 GM/DL 13.7-17.5 L 410) HEMATOCRIT (BEAKER) (test code = 32.3 % 40.1-51.0 L 411) MEAN CORPUSCULAR VOLUME (BEAKER) 103.5 fL 79.0-92.2 H (test code = 753) MEAN CORPUSCULAR HEMOGLOBIN 30.4 pg 25.7-32.2 (BEAKER) (test code = 751) MEAN CORPUSCULAR HEMOGLOBIN CONC 29.4 GM/DL 32.3-36.5 L (BEAKER) (test code = 752) RED CELL DISTRIBUTION WIDTH 16.7 % 11.6-14.4 H (BEAKER) (test code = 412) PLATELET COUNT (BEAKER) (test 524 K/CU MM 150-450 H code = 756) MEAN PLATELET VOLUME (BEAKER) 8.9 fL 9.4-12.4 L (test code = 754) NUCLEATED RED BLOOD CELLS 0 /100 WBC 0-0 (BEAKER) (test code = 413) [id number] 07:09:33 Test Item Value Reference Range Interpretation Comments PHOSPHORUS (BEAKER) (test code = 3.6 mg/dL 2.3-4.7 604) Room Attendant ID - KEVIN LBASIC METABOLIC [id number] 07:09:32 Test Item Value Reference Range Interpretation Comments SODIUM (BEAKER) 136 meq/L 136-145 (test code = 381) POTASSIUM (BEAKER) 4.4 meq/L 3.5-5.1 (test code = 379) CHLORIDE (BEAKER) 106 meq/L 98-107 (test code = 382) CO2 (BEAKER) (test 24 meq/L 22-29 code = 355) BLOOD UREA NITROGEN 24 mg/dL 7-21 H (BEAKER) (test code = 354) CREATININE (BEAKER) 1.58 mg/dL 0.57-1.25 H (test code = 358) GLUCOSE RANDOM 188 mg/dL 70-105 H (BEAKER) (test code = 652) CALCIUM (BEAKER) 8.5 mg/dL 8.4-10.2 (test code = 697) EGFR (BEAKER) (test 45 mL/min/1.73 ESTIMA LIVAN GFR IS code = 1092) sq m NOT ACCURATE CREATININE CLEARANCE IN PREDICTING GLOMERULAR FILTRATION RATE . ESTIMATED GFR I S NOT APPLICABLE FOR DIALYSIS PATIEN TS. Room Attendant ID - KEVIN [id number] 07:09:32 Test Item Value Reference Range Interpretation Comments MAGNESIUM (BEAKER) (test code = 2.1 mg/dL 1.6-2.6 627) Room Attendant ID - KEVIN LPOCT-GLUCOSE [id number] 20:45:26 Test Item Value Reference Range Interpretation Comments POC-GLUCOSE METER 145 mg/dL 70-110 H : [facility]BE[facility]ER[facility] (test code = [place], 1538) [address]: Room Attendant/Techni stephanie ID = [id number] for Co rtez, [place] POCT-GLUCOSE [id number] 17:39:40 Test Item Value Reference Range Interpretation Comments POC-GLUCOSE METER 226 mg/dL 70-110 H : TESTED A T [facility] 6720 (BEAKER) (test code = [place], 1538) 230[address]: Room Attendant/Techni stephanie ID = [id number] for Marly Gardner POCT-GLUCOSE [id number] 12:39:23 Test Item Value Reference Range Interpretation Comments POC-GLUCOSE METER 186 mg/dL 70-110 H : TESTED A T [facility] 6720 (BEAKER) (test code = [facility], 1538) 459[address]: Room Attendant/Techni stephanie ID = [id number] for Marly Gardner CBC W/PLT COUNT & AUTO [id number] 12:02:22 Test Item Value Reference Range Interpretation Comments WHITE BLOOD CELL COUNT (BEAKER) 8.3 K/ L 3.5-10.5 (test code = 775) RED BLOOD CELL COUNT (BEAKER) 2.85 M/ L 4.63-6.08 L (test code = 761) HEMOGLOBIN (BEAKER) (test code = 8.8 GM/DL 13.7-17.5 L 410) HEMATOCRIT (BEAKER) (test code = 29.6 % 40.1-51.0 L 411) MEAN CORPUSCULAR VOLUME (BEAKER) 103.9 fL 79.0-92.2 H (test code = 753) MEAN CORPUSCULAR HEMOGLOBIN 30.9 pg 25.7-32.2 (BEAKER) (test code = 751) MEAN CORPUSCULAR HEMOGLOBIN CONC 29.7 GM/DL 32.3-36.5 L (BEAKER) (test code = 752) RED CELL DISTRIBUTION WIDTH 16.5 % 11.6-14.4 H (BEAKER) (test code = 412) PLATELET COUNT (BEAKER) (test 542 K/CU MM 150-450 H code = 756) MEAN PLATELET VOLUME (BEAKER) 9.1 fL 9.4-12.4 L (test code = 754) NUCLEATED RED BLOOD CELLS 0 /100 WBC 0-0 (BEAKER) (test code = 413) (MANUAL DIFFERENTIAL)2021-11-19 12:02:22 Test Item Value Reference Range Interpretation Comments NEUTROPHILS - REL (DIFF) (BEAKER) 54 % (test code = 1359) LYMPHOCYTES - REL (DIFF) (BEAKER) 34 % (test code = 1360) MONOCYTES - REL (DIFF) (BEAKER) 9 % (test code = 1361) EOSINOPHILS - REL (DIFF) (BEAKER) 3 % (test code = 1362) NEUTROPHILS - ABS (DIFF) (BEAKER) 4.48 K/ L 1.80-8.00 (test code = 1365) LYMPHOCYTES - ABS (DIFF) (BEAKER) 2.82 K/ L 1.48-4.50 (test code = 1366) MONOCYTES - ABS (DIFF) (BEAKER) 0.75 K/ L 0.00-1.30 (test code = 1367) EOSINOPHILS - ABS (DIFF) (BEAKER) 0.25 K/ L 0.00-0.50 (test code = 1368) TOTAL COUNTED (BEAKER) (test code = 100 1351) WBC MORPHOLOGY (BEAKER) (test code Normal = 487) PLT MORPHOLOGY (BEAKER) (test code Normal = 486) ANISOCYTOSIS (BEAKER) (test code = 1+ few 961) HYPOCHROMIA (BEAKER) (test code = 1+ few 963) MACROCYTES (BEAKER) (test code = 1+ few 964) OVALOCYTES (BEAKER) (test code = 1+ few 477) POIKILOCYTES (BEAKER) (test code = 1+ few 966) POLYCHROMATOPHILLIC RBCS(BEAKER) 1+ few (test code = 478) POCT-GLUCOSE [id number] 08:49:20 Test Item Value Reference Range Interpretation Comments POC-GLUCOSE METER 153 mg/dL 70-110 H : TESTED A T [facility] 6720 (BEAKER) (test code = [facility], 1538) 569[address]: Room Attendant/Techni stephanie ID = [id number] for Marly Gardner HEPATIC FUNCTION [id number] 07:09:03 Test Item Value Reference Range Interpretation Comments TOTAL PROTEIN (BEAKER) (test code = 6.3 gm/dL 6.0-8.3 770) ALBUMIN (BEAKER) (test code = 1145) 2.6 g/dL 3.5-5.0 L BILIRUBIN TOTAL (BEAKER) (test code 0.4 mg/dL 0.2-1.2 = 377) BILIRUBIN DIRECT (BEAKER) (test 0.2 mg/dL 0.1-0.5 code = 706) ALKALINE PHOSPHATASE (BEAKER) (test 184 U/L 40-150 H code = 346) AST (SGOT) (BEAKER) (test code = 30 U/L 5-34 353) ALT (SGPT) (BEAKER) (test code = 25 U/L 6-55 347) Room Attendant ID - PANTERA [id number] 07:09:02 Test Item Value Reference Range Interpretation Comments PHOSPHORUS (BEAKER) (test code = 3.4 mg/dL 2.3-4.7 604) Room Attendant ID - PANTERA [id number] 07:09:01 Test Item Value Reference Range Interpretation Comments MAGNESIUM (BEAKER) (test code = 2.2 mg/dL 1.6-2.6 627) Room Attendant ID - PANTERA MCOMPREHENSIVE METABOLIC [id number] 07:09:00 Test Item Value Reference Range Interpretation Comments TOTAL PROTEIN 6.3 gm/dL 6.0-8.3 (BEAKER) (test code = 770) ALBUMIN (BEAKER) 2.6 g/dL 3.5-5.0 L (test code = 1145) ALKALINE PHOSPHATASE 184 U/L 40-150 H (BEAKER) (test code = 346) BILIRUBIN TOTAL 0.4 mg/dL 0.2-1.2 (BEAKER) (test code = 377) SODIUM (BEAKER) (test 137 meq/L 136-145 code = 381) POTASSIUM (BEAKER) 4.3 meq/L 3.5-5.1 (test code = 379) CHLORIDE (BEAKER) 106 meq/L 98-107 (test code = 382) CO2 (BEAKER) (test 25 meq/L 22-29 code = 355) BLOOD UREA NITROGEN 24 mg/dL 7-21 H (BEAKER) (test code = 354) CREATININE (BEAKER) 1.47 mg/dL 0.57-1.25 H (test code = 358) GLUCOSE RANDOM 160 mg/dL 70-105 H (BEAKER) (test code = 652) CALCIUM (BEAKER) 8.4 mg/dL 8.4-10.2 (test code = 697) AST (SGOT) (BEAKER) 30 U/L 5-34 (test code = 353) ALT (SGPT) (BEAKER) 25 U/L 6-55 (test code = 347) EGFR (BEAKER) (test 49 mL/min/1.73 ESTIMA LIVAN GFR IS code = 1092) sq m NOT ACCURATE CREATININE CLEARANCE IN PREDICTING GLOMERULAR FILTRATION RATE . ESTIMATED GFR I S NOT APPLICABLE FOR DIALYSIS PATIEN TS. Room Attendant ID - PANTERA MB-TYPE NATRIURETIC FACTOR (BNP)2021-11-19 06:52:13 Test Item Value Reference Range Interpretation Comments B-TYPE NATRIURETIC PEPTIDE (BEAKER) 365 pg/mL 0-100 H (test code = 700) Room Attendant ID - PANTERA MCALCIUM, [id number] 06:28:21 Test Item Value Reference Range Interpretation Comments CALCIUM IONIZED (BEAKER) (test 1.15 mmol/L 1.12-1.27 code = 698) PH, BLOOD (AKER) (test code = 7.39 1810) POCT-GLUCOSE [id number] 20:49:23 Test Item Value Reference Range Interpretation Comments POC-GLUCOSE METER 143 mg/dL 70-110 H : TESTED A T [facility] 6720 (Wipster) (test code = [facility], 1538) 06643: Room Attendant/Techni stephanie ID = [id number] for Co rtez, [place] POCT-GLUCOSE [id number] 17:38:56 Test Item Value Reference Range Interpretation Comments POC-GLUCOSE METER 156 mg/dL 70-110 H : TESTED A T [facility] 6720 ([employer]ster) (test code = [facility] [employer] [facility], 1538) 34351: Room Attendant/Techni stephanie ID = [id number] for Ba rrera, Marly POCT-GLUCOSE [id number] 12:34:54 Test Item Value Reference Range Interpretation Comments POC-GLUCOSE METER 134 mg/dL 70-110 H : TESTED A T [facility] 6720 (Selectable MediaAKER) (test code = [facility] [employer] [facility], 1538) 99103: Room Attendant/Techni stephanie ID = [id number] for Ba rrera, Marly POCT-GLUCOSE [id number] 08:49:53 Test Item Value Reference Range Interpretation Comments POC-GLUCOSE METER 81 mg/dL 70-110 : TESTED A T [facility] 6720 (BEAKER) (test code = [place], 1538) 0[address]: Room Attendant/Techni stephanie ID = [id number] for Marly Berry (CELLAVISION MANUAL DIFF)2021-11-18 08:31:47 Test Item Value Reference Range Interpretation Comments NEUTROPHILS - REL 61 % (CELLAVISION)(BEAKER) (test code = 2816) LYMPHOCYTES - REL 29 % (CELLAVISION)(BEAKER) (test code = 2817) MONOCYTES - REL 5 % (CELLAVISION)(BEAKER) (test code = 2818) EOSINOPHILS - REL 2 % (CELLAVISION)(BEAKER) (test code = 2819) BASOPHILS - REL 1 % (CELLAVISION)(BEAKER) (test code = 2820) MYELOCYTES - REL 2 % 0-0 H (CELLAVISION)(BEAKER) (test code = 2822) NEUTROPHILS - ABS 5.19 K/ul 1.78-5.38 (CELLAVISION)(BEAKER) (test code = 2830) LYMPHOCYTES - ABS 2.47 K/ul 1.32-3.57 (CELLAVISION)(BEAKER) (test code = 2831) MONOCYTES - ABS 0.43 K/uL 0.30-0.82 (CELLAVISION)(BEAKER) (test code = 2832) EOSINOPHILS - ABS 0.17 K/uL 0.04-0.54 (CELLAVISION)(BEAKER) (test code = 2834) BASOPHILS - ABS 0.09 K/uL 0.01-0.08 H (CELLAVISION)(BEAKER) (test code = 2835) MYELOCYTES-ABS 0.17 K/uL 0.00-0.00 H (CELLAVISION)(BEAKER) (test code = 2837) TOTAL COUNTED (BEAKER) (test code = 100 1351) WBC MORPHOLOGY (BEAKER) (test code Normal = 487) GIANT PLATELETS (BEAKER) (test code Present = 313) POLYCHROMATOPHILLIC RBCS(BEAKER) 3+ many (test code = 478) ANISOCYTOSIS (BEAKER) (test code = 1+ few 961) POIKILOCYTES (BEAKER) (test code = 3+ many 966) SPHEROCYTES (BEAKER) (test code = 1+ few 768) ELLIPTOCYTES (BEAKER) (test code = 1+ few 962) SADA CELLS (BEAKER) (test code = 1+ few 474) ARTIFACT (CELLAVISION)(BEAKER) Present (test code = 3432) PLATELET CONCENTRATION Increased (CELLAVISION)(BEAKER) (test code = 3438) Room Attendant ID - jacob Martínez comments: Slide comments:CBC W/PLT COUNT & AUTO [id number] 08:31:46 Test Item Value Reference Range Interpretation Comments WHITE BLOOD CELL COUNT (BEAKER) 8.5 K/ L 3.5-10.5 (test code = 775) RED BLOOD CELL COUNT (BEAKER) 2.95 M/ L 4.63-6.08 L (test code = 761) HEMOGLOBIN (BEAKER) (test code = 8.9 GM/DL 13.7-17.5 L 410) HEMATOCRIT (BEAKER) (test code = 30.7 % 40.1-51.0 L 411) MEAN CORPUSCULAR VOLUME (BEAKER) 104.1 fL 79.0-92.2 H (test code = 753) MEAN CORPUSCULAR HEMOGLOBIN 30.2 pg 25.7-32.2 (BEAKER) (test code = 751) MEAN CORPUSCULAR HEMOGLOBIN CONC 29.0 GM/DL 32.3-36.5 L (BEAKER) (test code = 752) RED CELL DISTRIBUTION WIDTH 16.3 % 11.6-14.4 H (BEAKER) (test code = 412) PLATELET COUNT (BEAKER) (test 529 K/CU MM 150-450 H code = 756) MEAN PLATELET VOLUME (BEAKER) 9.0 fL 9.4-12.4 L (test code = 754) NUCLEATED RED BLOOD CELLS 0 /100 WBC 0-0 (BEAKER) (test code = 413) HEPATIC FUNCTION [id number] 06:54:22 Test Item Value Reference Range Interpretation Comments TOTAL PROTEIN (BEAKER) (test code = 6.2 gm/dL 6.0-8.3 770) ALBUMIN (BEAKER) (test code = 1145) 2.7 g/dL 3.5-5.0 L BILIRUBIN TOTAL (BEAKER) (test code 0.5 mg/dL 0.2-1.2 = 377) BILIRUBIN DIRECT (BEAKER) (test 0.2 mg/dL 0.1-0.5 code = 706) ALKALINE PHOSPHATASE (BEAKER) (test 190 U/L 40-150 H code = 346) AST (SGOT) (BEAKER) (test code = 25 U/L 5-34 353) ALT (SGPT) (BEAKER) (test code = 25 U/L 6-55 347) Room Attendant ID - [id number] 06:54:21 Test Item Value Reference Range Interpretation Comments PHOSPHORUS (BEAKER) (test code = 3.3 mg/dL 2.3-4.7 604) Room Attendant ID - DBBASIC METABOLIC [id number] 06:54:20 Test Item Value Reference Range Interpretation Comments SODIUM (BEAKER) 135 meq/L 136-145 L (test code = 381) POTASSIUM (BEAKER) 4.3 meq/L 3.5-5.1 (test code = 379) CHLORIDE (BEAKER) 104 meq/L 98-107 (test code = 382) CO2 (BEAKER) (test 24 meq/L 22-29 code = 355) BLOOD UREA NITROGEN 24 mg/dL 7-21 H (BEAKER) (test code = 354) CREATININE (BEAKER) 1.49 mg/dL 0.57-1.25 H (test code = 358) GLUCOSE RANDOM 103 mg/dL 70-105 (BEAKER) (test code = 652) CALCIUM (BEAKER) 8.3 mg/dL 8.4-10.2 L (test code = 697) EGFR (BEAKER) (test 48 mL/min/1.73 ESTIMA LIVAN GFR IS code = 1092) sq m NOT ACCURATE CREATININE CLEARANCE IN PREDICTING GLOMERULAR FILTRATION RATE . ESTIMATED GFR I S NOT APPLICABLE FOR DIALYSIS PATIEN TS. Room Attendant ID - [id number] 06:54:20 Test Item Value Reference Range Interpretation Comments MAGNESIUM (BEAKER) (test code = 2.2 mg/dL 1.6-2.6 627) Room Attendant ID - DBPOCT-GLUCOSE [id number] 21:15:15 Test Item Value Reference Range Interpretation Comments POC-GLUCOSE METER 134 mg/dL 70-110 H : TESTED A T [facility] 6720 (BEAKER) (test code = [facility], 1538) 77885: Room Attendant/Techni setphanie ID = [id number] for KARY VALLE SE POCT-GLUCOSE [id number] 17:25:26 Test Item Value Reference Range Interpretation Comments POC-GLUCOSE METER 150 mg/dL 70-110 H : TESTED A T [facility] 6720 (BEAKER) (test code = [facility], 1538) 89948: Room Attendant/Techni stephanie ID = [id number] for DEBRA REID POCT-GLUCOSE [id number] 12:34:58 Test Item Value Reference Range Interpretation Comments POC-GLUCOSE METER 143 mg/dL 70-110 H : TESTED A T [facility] 6720 (BEAKER) (test code = [facility], 1538) 068[address]: Room Attendant/Techni stephanie ID = [id number] for DEBRA REID BLOOD [id number] 11:50:26 Test Item Value Reference Range Interpretation Comments CULTURE (BEAKER) A From Aerobi c Bottle (test code = Only Coagulase 1095) negative Staphylococcus GRAM STAIN From aerobic RESULT (BEAKER) bottle only: (test code = gram positive 1123) cocci in clusters POCT-GLUCOSE [id number] 07:35:48 Test Item Value Reference Range Interpretation Comments POC-GLUCOSE METER 121 mg/dL 70-110 H : TESTED A T [facility] 6720 (BEAKER) (test code = [facility], 1538) 98670: Room Attendant/Techni stephanie ID = [id number] for DEBRA REID [id number] 06:38:11 Test Item Value Reference Range Interpretation Comments PHOSPHORUS (BEAKER) (test code = 3.3 mg/dL 2.3-4.7 604) Room Attendant ID - PIAYA LHEPATIC FUNCTION [id number] 06:38:11 Test Item Value Reference Range Interpretation Comments TOTAL PROTEIN (BEAKER) (test code = 6.3 gm/dL 6.0-8.3 770) ALBUMIN (BEAKER) (test code = 1145) 2.7 g/dL 3.5-5.0 L BILIRUBIN TOTAL (BEAKER) (test code 0.4 mg/dL 0.2-1.2 = 377) BILIRUBIN DIRECT (BEAKER) (test 0.3 mg/dL 0.1-0.5 code = 706) ALKALINE PHOSPHATASE (BEAKER) (test 189 U/L 40-150 H code = 346) AST (SGOT) (BEAKER) (test code = 29 U/L 5-34 353) ALT (SGPT) (BEAKER) (test code = 29 U/L 6-55 347) Room Attendant ID Doug KEVIN LBASIC METABOLIC [id number] 06:38:10 Test Item Value Reference Range Interpretation Comments SODIUM (BEAKER) 134 meq/L 136-145 L (test code = 381) POTASSIUM (BEAKER) 3.7 meq/L 3.5-5.1 (test code = 379) CHLORIDE (BEAKER) 102 meq/L 98-107 (test code = 382) CO2 (BEAKER) (test 25 meq/L 22-29 code = 355) BLOOD UREA NITROGEN 26 mg/dL 7-21 H (BEAKER) (test code = 354) CREATININE (BEAKER) 1.68 mg/dL 0.57-1.25 H (test code = 358) GLUCOSE RANDOM 161 mg/dL 70-105 H (BEAKER) (test code = 652) CALCIUM (BEAKER) 8.3 mg/dL 8.4-10.2 L (test code = 697) EGFR (BEAKER) (test 42 mL/min/1.73 ESTIMA LIVAN GFR IS code = 1092) sq m NOT ACCURATE CREATININE CLEARANCE IN PREDICTING GLOMERULAR FILTRATION RATE . ESTIMATED GFR I S NOT APPLICABLE FOR DIALYSIS PATIEN TS. Room Attendant ID - PONCHOALESHA [id number] 06:38:10 Test Item Value Reference Range Interpretation Comments MAGNESIUM (BEAKER) (test code = 2.1 mg/dL 1.6-2.6 627) Room Attendant ID - PONCHOALESHA LCBC W/PLT COUNT & AUTO [id number] 05:17:12 Test Item Value Reference Range Interpretation Comments WHITE BLOOD CELL COUNT (BEAKER) 9.0 K/ L 3.5-10.5 (test code = 775) RED BLOOD CELL COUNT (BEAKER) 2.75 M/ L 4.63-6.08 L (test code = 761) HEMOGLOBIN (BEAKER) (test code = 8.5 GM/DL 13.7-17.5 L 410) HEMATOCRIT (BEAKER) (test code = 27.9 % 40.1-51.0 L 411) MEAN CORPUSCULAR VOLUME (BEAKER) 101.5 fL 79.0-92.2 H (test code = 753) MEAN CORPUSCULAR HEMOGLOBIN 30.9 pg 25.7-32.2 (BEAKER) (test code = 751) MEAN CORPUSCULAR HEMOGLOBIN CONC 30.5 GM/DL 32.3-36.5 L (BEAKER) (test code = 752) RED CELL DISTRIBUTION WIDTH 16.3 % 11.6-14.4 H (BEAKER) (test code = 412) PLATELET COUNT (BEAKER) (test 487 K/CU MM 150-450 H code = 756) MEAN PLATELET VOLUME (BEAKER) 9.0 fL 9.4-12.4 L (test code = 754) NUCLEATED RED BLOOD CELLS 0 /100 WBC 0-0 (BEAKER) (test code = 413) NEUTROPHILS RELATIVE PERCENT 52 % (BEAKER) (test code = 429) LYMPHOCYTES RELATIVE PERCENT 32 % (BEAKER) (test code = 430) MONOCYTES RELATIVE PERCENT 12 % (BEAKER) (test code = 431) EOSINOPHILS RELATIVE PERCENT 2 % (BEAKER) (test code = 432) BASOPHILS RELATIVE PERCENT 1 % (BEAKER) (test code = 437) NEUTROPHILS ABSOLUTE COUNT 4.71 K/ L 1.78-5.38 (BEAKER) (test code = 670) LYMPHOCYTES ABSOLUTE COUNT 2.87 K/ L 1.32-3.57 (BEAKER) (test code = 414) MONOCYTES ABSOLUTE COUNT (BEAKER) 1.04 K/ L 0.30-0.82 H (test code = 415) EOSINOPHILS ABSOLUTE COUNT 0.19 K/ L 0.04-0.54 (BEAKER) (test code = 416) BASOPHILS ABSOLUTE COUNT (BEAKER) 0.06 K/ L 0.01-0.08 (test code = 417) IMMATURE GRANULOCYTES-RELATIVE 2 % 0-1 H PERCENT (BEAKER) (test code = 2801) POCT-GLUCOSE [id number] 20:39:21 Test Item Value Reference Range Interpretation Comments POC-GLUCOSE METER 212 mg/dL 70-110 H : TESTED A T [facility] 6720 (BEAKER) (test code = [facility], 1538) 51723: Room Attendant/Techni stephanie ID = [id number] for Maria Eugenia Serrano POCT-GLUCOSE [id number] 17:09:39 Test Item Value Reference Range Interpretation Comments POC-GLUCOSE METER 185 mg/dL 70-110 H : TESTED A T [facility] 6720 (BEAKER) (test code = [facility], 1538) 68493: Room Attendant/Techni stephanie ID = [id number] for DEBRA REID BLOOD [id number] 16:00:32 Test Item Value Reference Range Interpretation Comments CULTURE (BEAKER) (test No growth in 5 days code = 1095) POCT-GLUCOSE [id number] 12:51:48 Test Item Value Reference Range Interpretation Comments POC-GLUCOSE METER 185 mg/dL 70-110 H : TESTED A T [facility] 6720 (BEAKER) (test code = [facility], 1538) 66506: Room Attendant/Techni tsephanie ID = [id number] for DEBRA REID POCT-GLUCOSE [id number] 07:31:44 Test Item Value Reference Range Interpretation Comments POC-GLUCOSE METER 99 mg/dL 70-110 : TESTED A T [facility] 6720 (BEAKER) (test code = [facility], 1538) 18273: Room Attendant/Techni stephanie ID = [id number] for DEBRA REID CALCIUM, [id number] 06:33:34 Test Item Value Reference Range Interpretation Comments CALCIUM IONIZED (BEAKER) (test 1.17 mmol/L 1.12-1.27 code = 698) PH, BLOOD (BEAKER) (test code = 7.38 1810) HEPATIC FUNCTION [id number] 05:54:36 Test Item Value Reference Range Interpretation Comments TOTAL PROTEIN (BEAKER) (test code = 6.5 gm/dL 6.0-8.3 770) ALBUMIN (BEAKER) (test code = 1145) 2.8 g/dL 3.5-5.0 L BILIRUBIN TOTAL (BEAKER) (test code 0.5 mg/dL 0.2-1.2 = 377) BILIRUBIN DIRECT (BEAKER) (test 0.3 mg/dL 0.1-0.5 code = 706) ALKALINE PHOSPHATASE (BEAKER) (test 196 U/L 40-150 H code = 346) AST (SGOT) (BEAKER) (test code = 26 U/L 5-34 353) ALT (SGPT) (BEAKER) (test code = 28 U/L 6-55 347) Room Attendant ID - KEVIN [id number] 05:54:35 Test Item Value Reference Range Interpretation Comments MAGNESIUM (BEAKER) (test code = 2.2 mg/dL 1.6-2.6 627) Room Attendant ID - KEVIN [id number] 05:54:35 Test Item Value Reference Range Interpretation Comments PHOSPHORUS (BEAKER) (test code = 3.4 mg/dL 2.3-4.7 604) Room Attendant ID - KEVIN LCOMPREHENSIVE METABOLIC [id number] 05:54:34 Test Item Value Reference Range Interpretation Comments TOTAL PROTEIN 6.5 gm/dL 6.0-8.3 (BEAKER) (test code = 770) ALBUMIN (BEAKER) 2.8 g/dL 3.5-5.0 L (test code = 1145) ALKALINE PHOSPHATASE 196 U/L 40-150 H (BEAKER) (test code = 346) BILIRUBIN TOTAL 0.5 mg/dL 0.2-1.2 (BEAKER) (test code = 377) SODIUM (BEAKER) (test 134 meq/L 136-145 L code = 381) POTASSIUM (BEAKER) 3.9 meq/L 3.5-5.1 (test code = 379) CHLORIDE (BEAKER) 100 meq/L 98-107 (test code = 382) CO2 (BEAKER) (test 27 meq/L 22-29 code = 355) BLOOD UREA NITROGEN 25 mg/dL 7-21 H (BEAKER) (test code = 354) CREATININE (BEAKER) 1.78 mg/dL 0.57-1.25 H (test code = 358) GLUCOSE RANDOM 149 mg/dL 70-105 H (BEAKER) (test code = 652) CALCIUM (BEAKER) 8.4 mg/dL 8.4-10.2 (test code = 697) AST (SGOT) (BEAKER) 26 U/L 5-34 (test code = 353) ALT (SGPT) (BEAKER) 28 U/L 6-55 (test code = 347) EGFR (BEAKER) (test 39 mL/min/1.73 ESTIMA LIVAN GFR IS code = 1092) sq m NOT ACCURATE CREATININE CLEARANCE IN PREDICTING GLOMERULAR FILTRATION RATE . ESTIMATED GFR I S NOT APPLICABLE FOR DIALYSIS PATIEN TS. Room Attendant ID - PIAYA LCBC W/PLT COUNT & AUTO [id number] 05:33:32 Test Item Value Reference Range Interpretation Comments WHITE BLOOD CELL COUNT (BEAKER) 10.5 K/ L 3.5-10.5 (test code = 775) RED BLOOD CELL COUNT (BEAKER) 2.76 M/ L 4.63-6.08 L (test code = 761) HEMOGLOBIN (BEAKER) (test code = 8.5 GM/DL 13.7-17.5 L 410) HEMATOCRIT (BEAKER) (test code = 28.4 % 40.1-51.0 L 411) MEAN CORPUSCULAR VOLUME (BEAKER) 102.9 fL 79.0-92.2 H (test code = 753) MEAN CORPUSCULAR HEMOGLOBIN 30.8 pg 25.7-32.2 (BEAKER) (test code = 751) MEAN CORPUSCULAR HEMOGLOBIN CONC 29.9 GM/DL 32.3-36.5 L (BEAKER) (test code = 752) RED CELL DISTRIBUTION WIDTH 16.5 % 11.6-14.4 H (BEAKER) (test code = 412) PLATELET COUNT (BEAKER) (test 511 K/CU MM 150-450 H code = 756) MEAN PLATELET VOLUME (BEAKER) 9.1 fL 9.4-12.4 L (test code = 754) NUCLEATED RED BLOOD CELLS 0 /100 WBC 0-0 (BEAKER) (test code = 413) NEUTROPHILS RELATIVE PERCENT 57 % (BEAKER) (test code = 429) LYMPHOCYTES RELATIVE PERCENT 27 % (BEAKER) (test code = 430) MONOCYTES RELATIVE PERCENT 11 % (BEAKER) (test code = 431) EOSINOPHILS RELATIVE PERCENT 2 % (BEAKER) (test code = 432) BASOPHILS RELATIVE PERCENT 1 % (BEAKER) (test code = 437) NEUTROPHILS ABSOLUTE COUNT 6.02 K/ L 1.78-5.38 H (BEAKER) (test code = 670) LYMPHOCYTES ABSOLUTE COUNT 2.83 K/ L 1.32-3.57 (BEAKER) (test code = 414) MONOCYTES ABSOLUTE COUNT (BEAKER) 1.18 K/ L 0.30-0.82 H (test code = 415) EOSINOPHILS ABSOLUTE COUNT 0.20 K/ L 0.04-0.54 (BEAKER) (test code = 416) BASOPHILS ABSOLUTE COUNT (BEAKER) 0.09 K/ L 0.01-0.08 H (test code = 417) IMMATURE GRANULOCYTES-RELATIVE 2 % 0-1 H PERCENT (BEAKER) (test code = 2801) POCT-GLUCOSE [id number] 21:14:10 Test Item Value Reference Range Interpretation Comments POC-GLUCOSE METER 241 mg/dL 70-110 H : TESTED A T [facility] 6720 (BEAKER) (test code = [facility], 1538) [id number]: Room Attendant/Techni stephanie ID = [id number] for Do , Maryam POCT-GLUCOSE [id number] 18:06:54 Test Item Value Reference Range Interpretation Comments POC-GLUCOSE METER 294 mg/dL 70-110 H : TESTED A T [facility] 6720 (BEAKER) (test code = [facility], 1538) [id number]: Room Attendant/Techni stephanie ID = [id number] for Ba rrera, Marly POCT-GLUCOSE [id number] 12:53:39 Test Item Value Reference Range Interpretation Comments POC-GLUCOSE METER 209 mg/dL 70-110 H : TESTED A T [facility] 6720 (BEAKER) (test code = [facility], 1538) [id number]: Room Attendant/Techni stephanie ID = [id number] for Ba rrera, Marly POCT-GLUCOSE [id number] 08:33:05 Test Item Value Reference Range Interpretation Comments POC-GLUCOSE METER 98 mg/dL 70-110 : TESTED A T [facility] 6720 (BEAKER) (test code = [facility], 1538) [address]: Room Attendant/Techni stephanie ID = [id number] for Aguilar era, Marly [id number] 06:12:52 Test Item Value Reference Range Interpretation Comments MAGNESIUM (BEAKER) (test code = 2.1 mg/dL 1.6-2.6 627) Room Attendant ID - KEVIN [id number] 06:12:52 Test Item Value Reference Range Interpretation Comments PHOSPHORUS (BEAKER) (test code = 3.8 mg/dL 2.3-4.7 604) Room Attendant REID BROWN LHEPATIC FUNCTION [id number] 06:12:52 Test Item Value Reference Range Interpretation Comments TOTAL PROTEIN (BEAKER) (test code = 6.8 gm/dL 6.0-8.3 770) ALBUMIN (BEAKER) (test code = 1145) 3.0 g/dL 3.5-5.0 L BILIRUBIN TOTAL (BEAKER) (test code 0.6 mg/dL 0.2-1.2 = 377) BILIRUBIN DIRECT (BEAKER) (test 0.3 mg/dL 0.1-0.5 code = 706) ALKALINE PHOSPHATASE (BEAKER) (test 200 U/L 40-150 H code = 346) AST (SGOT) (BEAKER) (test code = 27 U/L 5-34 353) ALT (SGPT) (BEAKER) (test code = 27 U/L 6-55 347) Room Attendant ID - PIAYA LCOMPREHENSIVE METABOLIC [id number] 06:12:51 Test Item Value Reference Range Interpretation Comments TOTAL PROTEIN 6.8 gm/dL 6.0-8.3 (BEAKER) (test code = 770) ALBUMIN (BEAKER) 3.0 g/dL 3.5-5.0 L (test code = 1145) ALKALINE PHOSPHATASE 200 U/L 40-150 H (BEAKER) (test code = 346) BILIRUBIN TOTAL 0.6 mg/dL 0.2-1.2 (BEAKER) (test code = 377) SODIUM (BEAKER) (test 135 meq/L 136-145 L code = 381) POTASSIUM (BEAKER) 3.6 meq/L 3.5-5.1 (test code = 379) CHLORIDE (BEAKER) 101 meq/L 98-107 (test code = 382) CO2 (BEAKER) (test 24 meq/L 22-29 code = 355) BLOOD UREA NITROGEN 29 mg/dL 7-21 H (BEAKER) (test code = 354) CREATININE (BEAKER) 1.85 mg/dL 0.57-1.25 H (test code = 358) GLUCOSE RANDOM 126 mg/dL 70-105 H (BEAKER) (test code = 652) CALCIUM (BEAKER) 8.6 mg/dL 8.4-10.2 (test code = 697) AST (SGOT) (BEAKER) 27 U/L 5-34 (test code = 353) ALT (SGPT) (BEAKER) 27 U/L 6-55 (test code = 347) EGFR (BEAKER) (test 37 mL/min/1.73 ESTIMA LIVAN GFR IS code = 1092) sq m NOT ACCURATE CREATININE CLEARANCE IN PREDICTING GLOMERULAR FILTRATION RATE . ESTIMATED GFR I S NOT APPLICABLE FOR DIALYSIS PATIEN TS. Room Attendant ID - PIAYA LB-TYPE NATRIURETIC FACTOR (BNP)2021-11-15 06:04:24 Test Item Value Reference Range Interpretation Comments B-TYPE NATRIURETIC PEPTIDE (BEAKER) 211 pg/mL 0-100 H (test code = 700) Room Attendant ID - PONCHOAYA LCBC W/PLT COUNT & AUTO [id number] 05:38:14 Test Item Value Reference Range Interpretation Comments WHITE BLOOD CELL COUNT (BEAKER) 9.1 K/ L 3.5-10.5 (test code = 775) RED BLOOD CELL COUNT (BEAKER) 2.88 M/ L 4.63-6.08 L (test code = 761) HEMOGLOBIN (BEAKER) (test code = 8.9 GM/DL 13.7-17.5 L 410) HEMATOCRIT (BEAKER) (test code = 29.8 % 40.1-51.0 L 411) MEAN CORPUSCULAR VOLUME (BEAKER) 103.5 fL 79.0-92.2 H (test code = 753) MEAN CORPUSCULAR HEMOGLOBIN 30.9 pg 25.7-32.2 (BEAKER) (test code = 751) MEAN CORPUSCULAR HEMOGLOBIN CONC 29.9 GM/DL 32.3-36.5 L (BEAKER) (test code = 752) RED CELL DISTRIBUTION WIDTH 16.4 % 11.6-14.4 H (BEAKER) (test code = 412) PLATELET COUNT (BEAKER) (test 487 K/CU MM 150-450 H code = 756) MEAN PLATELET VOLUME (BEAKER) 9.1 fL 9.4-12.4 L (test code = 754) NUCLEATED RED BLOOD CELLS 0 /100 WBC 0-0 (BEAKER) (test code = 413) NEUTROPHILS RELATIVE PERCENT 59 % (BEAKER) (test code = 429) LYMPHOCYTES RELATIVE PERCENT 26 % (BEAKER) (test code = 430) MONOCYTES RELATIVE PERCENT 11 % (BEAKER) (test code = 431) EOSINOPHILS RELATIVE PERCENT 2 % (BEAKER) (test code = 432) BASOPHILS RELATIVE PERCENT 1 % (BEAKER) (test code = 437) NEUTROPHILS ABSOLUTE COUNT 5.36 K/ L 1.78-5.38 (BEAKER) (test code = 670) LYMPHOCYTES ABSOLUTE COUNT 2.34 K/ L 1.32-3.57 (BEAKER) (test code = 414) MONOCYTES ABSOLUTE COUNT (BEAKER) 1.03 K/ L 0.30-0.82 H (test code = 415) EOSINOPHILS ABSOLUTE COUNT 0.20 K/ L 0.04-0.54 (BEAKER) (test code = 416) BASOPHILS ABSOLUTE COUNT (BEAKER) 0.07 K/ L 0.01-0.08 (test code = 417) IMMATURE GRANULOCYTES-RELATIVE 1 % 0-1 PERCENT (BEAKER) (test code = 2801) CALCIUM, [id number] 05:37:55 Test Item Value Reference Range Interpretation Comments CALCIUM IONIZED (BEAKER) (test 1.10 mmol/L 1.12-1.27 L code = 698) PH, BLOOD (BEAKER) (test code = 7.40 1810) POCT-GLUCOSE [id number] 21:42:36 Test Item Value Reference Range Interpretation Comments POC-GLUCOSE METER 240 mg/dL 70-110 H : TESTED A T [facility] 6720 (BEAKER) (test code = [facility], 1538) 154[address]: Room Attendant/Techni stephanie ID = [id number] for [place] POCT-GLUCOSE [id number] 18:05:51 Test Item Value Reference Range Interpretation Comments POC-GLUCOSE METER 179 mg/dL 70-110 H : TESTED A T [facility] 6720 (BEAKER) (test code = [facility], 1538) 61777: Room Attendant/Techni stephanie ID = [id number] for MARIA E LR POCT-GLUCOSE [id number] 12:11:35 Test Item Value Reference Range Interpretation Comments POC-GLUCOSE METER 206 mg/dL 70-110 H : TESTED A T [facility] 6720 (BEAKER) (test code = [facility] [place], 1538) 85159: Room Attendant/Techni stephanie ID = [id number] for MARIA E LR POCT-GLUCOSE [id number] 09:39:44 Test Item Value Reference Range Interpretation Comments POC-GLUCOSE METER 126 mg/dL 70-110 H : TESTED A T [facility] 6720 (BEAKER) (test code = [facility] [place], 1538) 44231: Room Attendant/Techni stephanie ID = [id number] for MARIA E LR CALCIUM, [id number] 04:21:47 Test Item Value Reference Range Interpretation Comments CALCIUM IONIZED (BEAKER) (test 1.12 mmol/L 1.12-1.27 code = 698) PH, BLOOD (BEAKER) (test code = 7.38 1810) HEPATIC FUNCTION [id number] 04:16:11 Test Item Value Reference Range Interpretation Comments TOTAL PROTEIN (BEAKER) (test code = 6.3 gm/dL 6.0-8.3 770) ALBUMIN (BEAKER) (test code = 1145) 2.8 g/dL 3.5-5.0 L BILIRUBIN TOTAL (BEAKER) (test code 0.5 mg/dL 0.2-1.2 = 377) BILIRUBIN DIRECT (BEAKER) (test 0.3 mg/dL 0.1-0.5 code = 706) ALKALINE PHOSPHATASE (BEAKER) (test 185 U/L 40-150 H code = 346) AST (SGOT) (BEAKER) (test code = 26 U/L 5-34 353) ALT (SGPT) (BEAKER) (test code = 27 U/L 6-55 347) Room Attendant ID - EFE [id number] 04:16:10 Test Item Value Reference Range Interpretation Comments MAGNESIUM (BEAKER) (test code = 2.2 mg/dL 1.6-2.6 627) Room Attendant ID - EFE [id number] 04:16:10 Test Item Value Reference Range Interpretation Comments PHOSPHORUS (BEAKER) (test code = 3.6 mg/dL 2.3-4.7 604) Room Attendant ID - EFE GCOMPREHENSIVE METABOLIC [id number] 04:16:09 Test Item Value Reference Range Interpretation Comments TOTAL PROTEIN 6.3 gm/dL 6.0-8.3 (BEAKER) (test code = 770) ALBUMIN (BEAKER) 2.8 g/dL 3.5-5.0 L (test code = 1145) ALKALINE PHOSPHATASE 185 U/L 40-150 H (BEAKER) (test code = 346) BILIRUBIN TOTAL 0.5 mg/dL 0.2-1.2 (BEAKER) (test code = 377) SODIUM (BEAKER) (test 134 meq/L 136-145 L code = 381) POTASSIUM (BEAKER) 3.7 meq/L 3.5-5.1 (test code = 379) CHLORIDE (BEAKER) 102 meq/L 98-107 (test code = 382) CO2 (BEAKER) (test 24 meq/L 22-29 code = 355) BLOOD UREA NITROGEN 30 mg/dL 7-21 H (BEAKER) (test code = 354) CREATININE (BEAKER) 1.80 mg/dL 0.57-1.25 H (test code = 358) GLUCOSE RANDOM 164 mg/dL 70-105 H (BEAKER) (test code = 652) CALCIUM (BEAKER) 8.2 mg/dL 8.4-10.2 L (test code = 697) AST (SGOT) (BEAKER) 26 U/L 5-34 (test code = 353) ALT (SGPT) (BEAKER) 27 U/L 6-55 (test code = 347) EGFR (BEAKER) (test 39 mL/min/1.73 ESTIMA LIVAN GFR IS code = 1092) sq m NOT ACCURATE CREATININE CLEARANCE IN PREDICTING GLOMERULAR FILTRATION RATE . ESTIMATED GFR I S NOT APPLICABLE FOR DIALYSIS PATIEN TS. Room Attendant ID - EFE GCBC W/PLT COUNT & AUTO [id number] 03:55:58 Test Item Value Reference Range Interpretation Comments WHITE BLOOD CELL COUNT (BEAKER) 8.5 K/ L 3.5-10.5 (test code = 775) RED BLOOD CELL COUNT (BEAKER) 2.70 M/ L 4.63-6.08 L (test code = 761) HEMOGLOBIN (BEAKER) (test code = 8.2 GM/DL 13.7-17.5 L 410) HEMATOCRIT (BEAKER) (test code = 28.2 % 40.1-51.0 L 411) MEAN CORPUSCULAR VOLUME (BEAKER) 104.4 fL 79.0-92.2 H (test code = 753) MEAN CORPUSCULAR HEMOGLOBIN 30.4 pg 25.7-32.2 (BEAKER) (test code = 751) MEAN CORPUSCULAR HEMOGLOBIN CONC 29.1 GM/DL 32.3-36.5 L (BEAKER) (test code = 752) RED CELL DISTRIBUTION WIDTH 16.5 % 11.6-14.4 H (BEAKER) (test code = 412) PLATELET COUNT (BEAKER) (test 414 K/CU MM 150-450 code = 756) MEAN PLATELET VOLUME (BEAKER) 9.1 fL 9.4-12.4 L (test code = 754) NUCLEATED RED BLOOD CELLS 0 /100 WBC 0-0 (BEAKER) (test code = 413) NEUTROPHILS RELATIVE PERCENT 61 % (BEAKER) (test code = 429) LYMPHOCYTES RELATIVE PERCENT 24 % (BEAKER) (test code = 430) MONOCYTES RELATIVE PERCENT 12 % (BEAKER) (test code = 431) EOSINOPHILS RELATIVE PERCENT 2 % (BEAKER) (test code = 432) BASOPHILS RELATIVE PERCENT 1 % (BEAKER) (test code = 437) NEUTROPHILS ABSOLUTE COUNT 5.17 K/ L 1.78-5.38 (BEAKER) (test code = 670) LYMPHOCYTES ABSOLUTE COUNT 2.03 K/ L 1.32-3.57 (BEAKER) (test code = 414) MONOCYTES ABSOLUTE COUNT (BEAKER) 1.04 K/ L 0.30-0.82 H (test code = 415) EOSINOPHILS ABSOLUTE COUNT 0.14 K/ L 0.04-0.54 (BEAKER) (test code = 416) BASOPHILS ABSOLUTE COUNT (BEAKER) 0.05 K/ L 0.01-0.08 (test code = 417) IMMATURE GRANULOCYTES-RELATIVE 1 % 0-1 PERCENT (BEAKER) (test code = 2801) POCT-GLUCOSE [id number] 20:27:30 Test Item Value Reference Range Interpretation Comments POC-GLUCOSE METER 200 mg/dL 70-110 H : TESTED A T [facility] 6720 (BEAKER) (test code = [facility] [place], 1538) 087[address]: Room Attendant/Techni stephanie ID = [id number] for [place] alonso POCT-GLUCOSE [id number] 17:30:38 Test Item Value Reference Range Interpretation Comments POC-GLUCOSE METER 249 mg/dL 70-110 H : TESTED A T [facility] 6720 (BEAKER) (test code = [facility], 1538) 23315: Room Attendant/Techni stephanie ID = [id number] for DEBRA REID POCT-GLUCOSE [id number] 12:24:15 Test Item Value Reference Range Interpretation Comments POC-GLUCOSE METER 173 mg/dL 70-110 H : TESTED A T [facility] 6720 (BEAKER) (test code = [facility], 1538) 45659: Room Attendant/Techni stephanie ID = [id number] for DEBRA REID [id number] 08:26:43 Test Item Value Reference Range Interpretation Comments MAGNESIUM (BEAKER) (test code = 2.2 mg/dL 1.6-2.6 627) Room Attendant ID - KEVIN [id number] 08:26:43 Test Item Value Reference Range Interpretation Comments PHOSPHORUS (BEAKER) (test code = 3.6 mg/dL 2.3-4.7 604) Room Attendant ID - KEVIN LHEPATIC FUNCTION [id number] 08:26:43 Test Item Value Reference Range Interpretation Comments TOTAL PROTEIN (BEAKER) (test code = 6.1 gm/dL 6.0-8.3 770) ALBUMIN (BEAKER) (test code = 1145) 2.7 g/dL 3.5-5.0 L BILIRUBIN TOTAL (BEAKER) (test code 0.6 mg/dL 0.2-1.2 = 377) BILIRUBIN DIRECT (BEAKER) (test 0.3 mg/dL 0.1-0.5 code = 706) ALKALINE PHOSPHATASE (BEAKER) (test 178 U/L 40-150 H code = 346) AST (SGOT) (BEAKER) (test code = 32 U/L 5-34 353) ALT (SGPT) (BEAKER) (test code = 28 U/L 6-55 347) Room Attendant ID - KEVIN LBASIC METABOLIC [id number] 08:26:42 Test Item Value Reference Range Interpretation Comments SODIUM (BEAKER) 133 meq/L 136-145 L (test code = 381) POTASSIUM (BEAKER) 4.0 meq/L 3.5-5.1 (test code = 379) CHLORIDE (BEAKER) 103 meq/L 98-107 (test code = 382) CO2 (BEAKER) (test 23 meq/L 22-29 code = 355) BLOOD UREA NITROGEN 29 mg/dL 7-21 H (BEAKER) (test code = 354) CREATININE (BEAKER) 1.73 mg/dL 0.57-1.25 H (test code = 358) GLUCOSE RANDOM 145 mg/dL 70-105 H (BEAKER) (test code = 652) CALCIUM (BEAKER) 8.2 mg/dL 8.4-10.2 L (test code = 697) EGFR (BEAKER) (test 40 mL/min/1.73 ESTIMA LIVAN GFR IS code = 1092) sq m NOT ACCURATE CREATININE CLEARANCE IN PREDICTING GLOMERULAR FILTRATION RATE . ESTIMATED GFR I S NOT APPLICABLE FOR DIALYSIS PATIEN TS. Room Attendant ID - PIAYA LPOCT-GLUCOSE [id number] 07:17:31 Test Item Value Reference Range Interpretation Comments POC-GLUCOSE METER 130 mg/dL 70-110 H : TESTED A T [facility] 6720 (BEAKER) (test code = [facility] [place], 1538) 94114: Room Attendant/Techni stephanie ID = [id number] for DEBRA REID CBC W/PLT COUNT & AUTO [id number] 04:18:04 Test Item Value Reference Range Interpretation Comments WHITE BLOOD CELL COUNT (BEAKER) 10.5 K/ L 3.5-10.5 (test code = 775) RED BLOOD CELL COUNT (BEAKER) 2.52 M/ L 4.63-6.08 L (test code = 761) HEMOGLOBIN (BEAKER) (test code = 7.9 GM/DL 13.7-17.5 L 410) HEMATOCRIT (BEAKER) (test code = 25.9 % 40.1-51.0 L 411) MEAN CORPUSCULAR VOLUME (BEAKER) 102.8 fL 79.0-92.2 H (test code = 753) MEAN CORPUSCULAR HEMOGLOBIN 31.3 pg 25.7-32.2 (BEAKER) (test code = 751) MEAN CORPUSCULAR HEMOGLOBIN CONC 30.5 GM/DL 32.3-36.5 L (BEAKER) (test code = 752) RED CELL DISTRIBUTION WIDTH 17.2 % 11.6-14.4 H (BEAKER) (test code = 412) PLATELET COUNT (BEAKER) (test 415 K/CU MM 150-450 code = 756) MEAN PLATELET VOLUME (BEAKER) 9.7 fL 9.4-12.4 (test code = 754) NUCLEATED RED BLOOD CELLS 0 /100 WBC 0-0 (BEAKER) (test code = 413) NEUTROPHILS RELATIVE PERCENT 61 % (BEAKER) (test code = 429) LYMPHOCYTES RELATIVE PERCENT 23 % (BEAKER) (test code = 430) MONOCYTES RELATIVE PERCENT 12 % (BEAKER) (test code = 431) EOSINOPHILS RELATIVE PERCENT 2 % (BEAKER) (test code = 432) BASOPHILS RELATIVE PERCENT 1 % (BEAKER) (test code = 437) NEUTROPHILS ABSOLUTE COUNT 6.37 K/ L 1.78-5.38 H (BEAKER) (test code = 670) LYMPHOCYTES ABSOLUTE COUNT 2.45 K/ L 1.32-3.57 (BEAKER) (test code = 414) MONOCYTES ABSOLUTE COUNT (BEAKER) 1.30 K/ L 0.30-0.82 H (test code = 415) EOSINOPHILS ABSOLUTE COUNT 0.16 K/ L 0.04-0.54 (BEAKER) (test code = 416) BASOPHILS ABSOLUTE COUNT (BEAKER) 0.05 K/ L 0.01-0.08 (test code = 417) IMMATURE GRANULOCYTES-RELATIVE 2 % 0-1 H PERCENT (BEAKER) (test code = 2801) POCT-GLUCOSE [id number] 21:00:17 Test Item Value Reference Range Interpretation Comments POC-GLUCOSE METER 90 mg/dL 70-110 : TESTED A T [facility] 6720 (BEAKER) (test code = [facility], 1538) 39941: Room Attendant/Techni stephanie ID = [id number] for Unra ez, [place] POCT-GLUCOSE [id number] 17:15:06 Test Item Value Reference Range Interpretation Comments POC-GLUCOSE METER 157 mg/dL 70-110 H : TESTED A T [facility] 6720 (BEAKER) (test code = [facility] [employer] [facility], 1538) 67265: Room Attendant/Techni stephanie ID = [id number] for DEBRA REID BLOOD CULTURE IDENTIFICATION [id number] 13:16:36 Test Item Value Reference Interpretation Comments Range LISTERIA MONOCYTOGENES Not detected Not detected (test code = 0662298) STAPHYLOCOCCUS (test Detected Not detected A Coagula se negative code = 3578050) Staph specie s (CoNS)- methici llin resistantFirst- line therapy: Vancom ycin MecA DETECTED Possible contamination. The likelihood of pathogenicity i s increased if th e organism is observed in multiple blood cultures obtain ed from separate venipunctures. Reference Range : Not Detected STAPHYLOCOCCUS AUREUS Not detected Not detected (test code = 6912248) STREPTOCOCCUS (test code Not detected Not detected = 8151804) STREPTOCOCCUS AGALACTIAE Not detected Not detected (GROUP B) (test code = 6343772) STREPTOCOCCUS PNEUMONIAE Not detected Not detected (test code = 4832809) STREPTOCOCCUS PYOGENES Not detected Not detected (GROUP A) (test code = 1414633) ACINETOBACTER BAUMANNII Not detected Not detected (test code = 9780446) HAEMOPHILUS INFLUENZAE Not detected Not detected (test code = 4051456) NEISSERIA MENINGITIDIS Not detected Not detected (test code = 9904600) ENTEROBACTERIACEAE (test Not detected Not detected code = 0379399) ENTEROBACTER CLOACOE Not detected Not detected COMPLEX (test code = 3836805) KLEBSIELLA OXYTOCA (test Not detected Not detected code = 9991988) KLEBSIELLA PNEUMONIAE Not detected Not detected (test code = 1650) PROTEUS (test code = Not detected Not detected 2211476) SERRATIA MARCESCENS Not detected Not detected (test code = 9533688) VINEET ALBICANS (test Not detected Not detected code = 5503714) VINEET GLABRATA (test Not detected Not detected code = 3647492) VINEET KRUSEI (test Not detected Not detected code = 3790511) VINEET PARAPSILOSIS Not detected Not detected (test code = 4170090) VINEET TROPICALIS (test Not detected Not detected code = 7914995) ESCHERICHIA COLI (test Not detected Not detected code = 4863213) METHICILLIN-RESISTANCE Detected Not detected A Note: Antimicrobial GENE (test code = resistance can 5680885) occur via multi ple mechanisms. A N ot Detected result for the CallmyNameArray antimicrobial resistance gene assays does not indicate antimicrobial susceptibility. Subculturing is required for species identification and susceptibility testing of isolates. VANCOMYCIN-RESISTANCE GENE (test code = 7551048) CARBAPENEM-RESISTANCE GENE (test code = 7352238) ENTEROCOCCUS-BEAKER Not detected Not detected (test code = 0138459) PSEUDOMONAS Not detected Not detected AERUGINOSA-BEAKER (test code = 6169259) Other bacteria and resistance markers not targeted by this PCR panel cannot be excluded; therefore clinical correlation and follow up of serology, culture results, and other molecular studies is required. The results are not intended to be used as the sole means for clinical diagnosis or patient management decisions. This sample was tested at the [facility] using the EasyProve Blood Culture ID Panel. It is FDA cleared and has been verified and approved by the [facility] for clinical use. This laboratory is CLIA-certified and College ofAmerican Pathologists (CAP)-accredited to perform high complexity testing.POCT-GLUCOSE [id number] 12:33:48 Test Item Value Reference Range Interpretation Comments POC-GLUCOSE METER 116 mg/dL 70-110 H : TESTED A T [facility] 6720 (BEAKER) (test code = [facility], 1538) 58285: Room Attendant/Techni stephanie ID = [id number] for DEBRA REID POCT-GLUCOSE [id number] 08:51:57 Test Item Value Reference Range Interpretation Comments POC-GLUCOSE METER 76 mg/dL 70-110 : TESTED A T [facility] 6720 (BEAKER) (test code = [facility], 1538) 60294: Room Attendant/Techni stephanie ID = [id number] for Toshia Collins (CELLAVISION MANUAL DIFF)2021-11-12 08:39:26 Test Item Value Reference Range Interpretation Comments NEUTROPHILS - REL 74 % (CELLAVISION)(BEAKER) (test code = 2816) LYMPHOCYTES - REL 13 % (CELLAVISION)(BEAKER) (test code = 2817) MONOCYTES - REL 11 % (CELLAVISION)(BEAKER) (test code = 2818) MYELOCYTES - REL 1 % 0-0 H (CELLAVISION)(BEAKER) (test code = 2822) BANDS - REL (CELLAVISION)(BEAKER) 1 % 0-10 (test code = 2826) NEUTROPHILS - ABS 9.10 K/ul 1.78-5.38 H (CELLAVISION)(BEAKER) (test code = 2830) LYMPHOCYTES - ABS 1.60 K/ul 1.32-3.57 (CELLAVISION)(BEAKER) (test code = 2831) MONOCYTES - ABS 1.35 K/uL 0.30-0.82 H (CELLAVISION)(BEAKER) (test code = 2832) MYELOCYTES-ABS 0.12 K/uL 0.00-0.00 H (CELLAVISION)(BEAKER) (test code = 2837) BANDS - ABS (CELLAVISION)(BEAKER) 0.12 K/uL 0.00-0.80 (test code = 2840) TOTAL COUNTED (BEAKER) (test code 100 = 1351) WBC MORPHOLOGY (BEAKER) (test Normal code = 487) PLT MORPHOLOGY (BEAKER) (test Normal code = 486) POLYCHROMATOPHILLIC RBCS(BEAKER) 2+ moderate (test code = 478) ANISOCYTOSIS (BEAKER) (test code 2+ moderate = 961) MACROCYTES (BEAKER) (test code = 1+ few 964) POIKILOCYTES (BEAKER) (test code 1+ few = 966) TEAR DROP CELLS (BEAKER) (test 1+ few code = 481) ACANTHOCYTES (BEAKER) (test code 1+ few = 471) ARTIFACT (CELLAVISION)(BEAKER) Present (test code = 3432) PLATELET CONCENTRATION Adequate (CELLAVISION)(BEAKER) (test code = 3438) Room Attendant ID - Whitney Mccauley comments: Slide comments:POCT-GLUCOSE METER 2021-11-12 07:15:07 Test Item Value Reference Range Interpretation Comments POC-GLUCOSE METER 76 mg/dL 70-110 : TESTED A T [facility] 6720 (BEAKER) (test code = [place], 1538) 24886: Room Attendant/Techni stephanie ID = [id number] for DEBRA REID HEPATIC FUNCTION [id number] 05:25:21 Test Item Value Reference Range Interpretation Comments TOTAL PROTEIN (BEAKER) (test code = 6.2 gm/dL 6.0-8.3 770) ALBUMIN (BEAKER) (test code = 1145) 2.9 g/dL 3.5-5.0 L BILIRUBIN TOTAL (BEAKER) (test code 0.7 mg/dL 0.2-1.2 = 377) BILIRUBIN DIRECT (BEAKER) (test 0.4 mg/dL 0.1-0.5 code = 706) ALKALINE PHOSPHATASE (BEAKER) (test 174 U/L 40-150 H code = 346) AST (SGOT) (BEAKER) (test code = 26 U/L 5-34 353) ALT (SGPT) (BEAKER) (test code = 23 U/L 6-55 347) Room Attendant ID - PANTERA MBASIC METABOLIC [id number] 05:25:20 Test Item Value Reference Range Interpretation Comments SODIUM (BEAKER) 134 meq/L 136-145 L (test code = 381) POTASSIUM (BEAKER) 3.9 meq/L 3.5-5.1 (test code = 379) CHLORIDE (BEAKER) 102 meq/L 98-107 (test code = 382) CO2 (BEAKER) (test 23 meq/L 22-29 code = 355) BLOOD UREA NITROGEN 33 mg/dL 7-21 H (BEAKER) (test code = 354) CREATININE (BEAKER) 1.89 mg/dL 0.57-1.25 H (test code = 358) GLUCOSE RANDOM 90 mg/dL 70-105 (BEAKER) (test code = 652) CALCIUM (BEAKER) 8.1 mg/dL 8.4-10.2 L (test code = 697) EGFR (BEAKER) (test 36 mL/min/1.73 ESTIMA LIVAN GFR IS code = 1092) sq m NOT ACCURATE CREATININE CLEARANCE IN PREDICTING GLOMERULAR FILTRATION RATE . ESTIMATED GFR I S NOT APPLICABLE FOR DIALYSIS PATIEN TS. Room Attendant ID - PANTERA [id number] 05:25:20 Test Item Value Reference Range Interpretation Comments MAGNESIUM (BEAKER) (test code = 2.1 mg/dL 1.6-2.6 627) Room Attendant ID - PANTERA [id number] 05:25:20 Test Item Value Reference Range Interpretation Comments PHOSPHORUS (BEAKER) (test code = 3.4 mg/dL 2.3-4.7 604) Room Attendant ID Doug MOTT [facility] W/PLT COUNT & AUTO [id number] 05:01:30 Test Item Value Reference Range Interpretation Comments WHITE BLOOD CELL COUNT (BEAKER) 12.3 K/ L 3.5-10.5 H (test code = 775) RED BLOOD CELL COUNT (BEAKER) 2.54 M/ L 4.63-6.08 L (test code = 761) HEMOGLOBIN (BEAKER) (test code = 7.9 GM/DL 13.7-17.5 L 410) HEMATOCRIT (BEAKER) (test code = 26.0 % 40.1-51.0 L 411) MEAN CORPUSCULAR VOLUME (BEAKER) 102.4 fL 79.0-92.2 H (test code = 753) MEAN CORPUSCULAR HEMOGLOBIN 31.1 pg 25.7-32.2 (BEAKER) (test code = 751) MEAN CORPUSCULAR HEMOGLOBIN CONC 30.4 GM/DL 32.3-36.5 L (BEAKER) (test code = 752) RED CELL DISTRIBUTION WIDTH 17.4 % 11.6-14.4 H (BEAKER) (test code = 412) PLATELET COUNT (BEAKER) (test 351 K/CU MM 150-450 code = 756) MEAN PLATELET VOLUME (BEAKER) 9.8 fL 9.4-12.4 (test code = 754) NUCLEATED RED BLOOD CELLS 0 /100 WBC 0-0 (BEAKER) (test code = 413) POCT-GLUCOSE [id number] 21:11:09 Test Item Value Reference Range Interpretation Comments POC-GLUCOSE METER 148 mg/dL 70-110 H : TESTED A T [facility] 6720 (BEAKER) (test code = [facility] Muro [facility], 1538) [id number]: Room Attendant/Techni stephanie ID = [id number] for Co rtez, [place] POCT-GLUCOSE [id number] 17:11:31 Test Item Value Reference Range Interpretation Comments POC-GLUCOSE METER 154 mg/dL 70-110 H : TESTED A T [facility] 6720 (BEAKER) (test code = [facility] Bhaskar [facility], 1538) [id number]: Room Attendant/Techni stephanie ID = [id number] for DEBRA REID URINALYSIS W/ REFLEX URINE [id number] 15:39:53 Test Item Value Reference Range Interpretation Comments COLOR (BEAKER) (test code = 470) Light Yellow CLARITY (BEAKER) (test code = Clear 469) SPECIFIC GRAVITY UA (BEAKER) 1.008 1.001-1.035 (test code = 468) PH UA (BEAKER) (test code = 467) 6.0 5.0-8.0 PROTEIN UA (BEAKER) (test code = Negative Negative 464) GLUCOSE UA (BEAKER) (test code = 1000 mg/dL Negative A 365) KETONES UA (BEAKER) (test code = Negative Negative 371) BILIRUBIN UA (BEAKER) (test code Negative Negative = 462) BLOOD UA (BEAKER) (test code = Negative Negative 461) NITRITE UA (BEAKER) (test code = Negative Negative 465) LEUKOCYTE ESTERASE UA (BEAKER) Negative Negative (test code = 466) UROBILINOGEN UA (BEAKER) (test 0.2 mg/dL 0.2-1.0 code = 463) RBC UA (BEAKER) (test code = < /HPF 519) WBC UA (BEAKER) (test code = < /HPF 520) BACTERIA (BEAKER) (test code = None Seen 517) CRYSTALS, URINE (BEAKER) (test None Seen code = 1521) SOURCE(BEAKER) (test code = 2795) Room Attendant ID - [auto]Room Attendant ID - techPOCT-GLUCOSE [id number] 12:36:59 Test Item Value Reference Range Interpretation Comments POC-GLUCOSE METER 311 mg/dL 70-110 H : TESTED A T [facility] 6720 (BEAKER) (test code = [facility], 1538) 7[address]: Room Attendant/Techni stephanie ID = [id number] for DEBRA REID POCT-GLUCOSE [id number] 07:32:37 Test Item Value Reference Range Interpretation Comments POC-GLUCOSE METER 119 mg/dL 70-110 H : TESTED A T [facility] 6720 (BEAKER) (test code = [facility], 1538) 98081: Room Attendant/Techni stephanie ID = [id number] for DARVIN GUY (CELLAVISION MANUAL DIFF)2021-11-11 07:22:09 Test Item Value Reference Range Interpretation Comments NEUTROPHILS - REL 70 % (CELLAVISION)(BEAKER) (test code = 2816) LYMPHOCYTES - REL 18 % (CELLAVISION)(BEAKER) (test code = 2817) MONOCYTES - REL 5 % (CELLAVISION)(BEAKER) (test code = 2818) EOSINOPHILS - REL 1 % (CELLAVISION)(BEAKER) (test code = 2819) METAMYELOCYTES - REL 2 % 0-0 H (CELLAVISION)(BEAKER) (test code = 2821) MYELOCYTES - REL 3 % 0-0 H (CELLAVISION)(BEAKER) (test code = 2822) BANDS - REL (CELLAVISION)(BEAKER) 1 % 0-10 (test code = 2826) NEUTROPHILS - ABS 9.52 K/ul 1.78-5.38 H (CELLAVISION)(BEAKER) (test code = 2830) LYMPHOCYTES - ABS 2.45 K/ul 1.32-3.57 (CELLAVISION)(BEAKER) (test code = 2831) MONOCYTES - ABS 0.68 K/uL 0.30-0.82 (CELLAVISION)(BEAKER) (test code = 2832) EOSINOPHILS - ABS 0.14 K/uL 0.04-0.54 (CELLAVISION)(BEAKER) (test code = 2834) METAMYELOCYTES - ABS 0.27 K/uL 0.00-0.00 H (CELLAVISION)(BEAKER) (test code = 2836) MYELOCYTES-ABS 0.41 K/uL 0.00-0.00 H (CELLAVISION)(BEAKER) (test code = 2837) BANDS - ABS (CELLAVISION)(BEAKER) 0.14 K/uL 0.00-0.80 (test code = 2840) TOTAL COUNTED (BEAKER) (test code 100 = 1351) MANUAL NRBC PER 100 CELLS (BEAKER) 1 /100 WBC 0-0 H (test code = 1353) WBC MORPHOLOGY (BEAKER) (test code Normal = 487) GIANT PLATELETS (BEAKER) (test Present code = 313) POLYCHROMATOPHILLIC RBCS(BEAKER) 3+ many (test code = 478) ANISOCYTOSIS (BEAKER) (test code = 1+ few 961) MACROCYTES (BEAKER) (test code = 1+ few 964) ARTIFACT (CELLAVISION)(BEAKER) Present (test code = 3432) PLATELET CONCENTRATION Adequate (CELLAVISION)(BEAKER) (test code = 3438) Room Attendant ID - jacob Martínez comments: Slide comments:CBC W/PLT COUNT & AUTO [id number] 07:22:08 Test Item Value Reference Range Interpretation Comments WHITE BLOOD CELL COUNT (BEAKER) 13.6 K/ L 3.5-10.5 H (test code = 775) RED BLOOD CELL COUNT (BEAKER) 2.44 M/ L 4.63-6.08 L (test code = 761) HEMOGLOBIN (BEAKER) (test code = 7.7 GM/DL 13.7-17.5 L 410) HEMATOCRIT (BEAKER) (test code = 25.3 % 40.1-51.0 L 411) MEAN CORPUSCULAR VOLUME (BEAKER) 103.7 fL 79.0-92.2 H (test code = 753) MEAN CORPUSCULAR HEMOGLOBIN 31.6 pg 25.7-32.2 (BEAKER) (test code = 751) MEAN CORPUSCULAR HEMOGLOBIN CONC 30.4 GM/DL 32.3-36.5 L (BEAKER) (test code = 752) RED CELL DISTRIBUTION WIDTH 18.2 % 11.6-14.4 H (BEAKER) (test code = 412) PLATELET COUNT (BEAKER) (test 322 K/CU MM 150-450 code = 756) MEAN PLATELET VOLUME (BEAKER) 9.5 fL 9.4-12.4 (test code = 754) NUCLEATED RED BLOOD CELLS 0 /100 WBC 0-0 (BEAKER) (test code = 413) [id number] 06:17:03 Test Item Value Reference Range Interpretation Comments PHOSPHORUS (BEAKER) (test code = 4.0 mg/dL 2.3-4.7 604) Room Attendant ID - EOHEPATIC FUNCTION [id number] 06:17:03 Test Item Value Reference Range Interpretation Comments TOTAL PROTEIN (BEAKER) (test code = 6.1 gm/dL 6.0-8.3 770) ALBUMIN (BEAKER) (test code = 1145) 2.9 g/dL 3.5-5.0 L BILIRUBIN TOTAL (BEAKER) (test code 0.7 mg/dL 0.2-1.2 = 377) BILIRUBIN DIRECT (BEAKER) (test 0.4 mg/dL 0.1-0.5 code = 706) ALKALINE PHOSPHATASE (BEAKER) (test 177 U/L 40-150 H code = 346) AST (SGOT) (BEAKER) (test code = 21 U/L 5-34 353) ALT (SGPT) (BEAKER) (test code = 22 U/L 6-55 347) Room Attendant ID - EOBASIC METABOLIC [id number] 06:17:02 Test Item Value Reference Range Interpretation Comments SODIUM (BEAKER) 133 meq/L 136-145 L (test code = 381) POTASSIUM (BEAKER) 3.8 meq/L 3.5-5.1 (test code = 379) CHLORIDE (BEAKER) 102 meq/L 98-107 (test code = 382) CO2 (BEAKER) (test 22 meq/L 22-29 code = 355) BLOOD UREA NITROGEN 33 mg/dL 7-21 H (BEAKER) (test code = 354) CREATININE (BEAKER) 2.10 mg/dL 0.57-1.25 H (test code = 358) GLUCOSE RANDOM 132 mg/dL 70-105 H (BEAKER) (test code = 652) CALCIUM (BEAKER) 8.2 mg/dL 8.4-10.2 L (test code = 697) EGFR (BEAKER) (test 32 mL/min/1.73 ESTIMA LIVAN GFR IS code = 1092) sq m NOT ACCURATE CREATININE CLEARANCE IN PREDICTING GLOMERULAR FILTRATION RATE . ESTIMATED GFR I S NOT APPLICABLE FOR DIALYSIS PATIEN TS. Room Attendant ID - [id number] 06:17:02 Test Item Value Reference Range Interpretation Comments MAGNESIUM (BEAKER) (test code = 2.2 mg/dL 1.6-2.6 627) Room Attendant ID - EOPOCT-GLUCOSE [id number] 22:50:53 Test Item Value Reference Range Interpretation Comments POC-GLUCOSE METER 162 mg/dL 70-110 H : TESTED A T [facility] 6720 (BEAKER) (test code [facility], = 1538) 04143: Room Attendant/Techni stephanie ID = [id number] for Neli Cagle POCT-GLUCOSE [id number] 16:17:15 Test Item Value Reference Range Interpretation Comments POC-GLUCOSE METER 119 mg/dL 70-110 H : TESTED A T [facility] 6720 (BEAKER) (test code = [facility] [place], 1538) 809[address]: Room Attendant/Techni stephanie ID = [id number] for Taisha Hutchison POCT-GLUCOSE [id number] 11:23:14 Test Item Value Reference Range Interpretation Comments POC-GLUCOSE METER 235 mg/dL 70-110 H : TESTED A T [facility] 6720 (BEAKER) (test code = [facility] [place], 1538) 41094: Room Attendant/Techni stephanie ID = [id number] for Taisha Hutchison CBC W/PLT COUNT & AUTO [id number] 07:57:39 Test Item Value Reference Range Interpretation Comments WHITE BLOOD CELL COUNT (BEAKER) 12.8 K/ L 3.5-10.5 H (test code = 775) RED BLOOD CELL COUNT (BEAKER) 2.43 M/ L 4.63-6.08 L (test code = 761) HEMOGLOBIN (BEAKER) (test code = 7.5 GM/DL 13.7-17.5 L 410) HEMATOCRIT (BEAKER) (test code = 25.5 % 40.1-51.0 L 411) MEAN CORPUSCULAR VOLUME (BEAKER) 104.9 fL 79.0-92.2 H (test code = 753) MEAN CORPUSCULAR HEMOGLOBIN 30.9 pg 25.7-32.2 (BEAKER) (test code = 751) MEAN CORPUSCULAR HEMOGLOBIN CONC 29.4 GM/DL 32.3-36.5 L (BEAKER) (test code = 752) RED CELL DISTRIBUTION WIDTH 17.8 % 11.6-14.4 H (BEAKER) (test code = 412) PLATELET COUNT (BEAKER) (test 299 K/CU MM 150-450 code = 756) MEAN PLATELET VOLUME (BEAKER) 9.8 fL 9.4-12.4 (test code = 754) NUCLEATED RED BLOOD CELLS 2 /100 WBC 0-0 H (BEAKER) (test code = 413) (CELLAVISION MANUAL DIFF)2021-11-10 07:57:39 Test Item Value Reference Range Interpretation Comments NEUTROPHILS - REL 77 % (CELLAVISION)(BEAKER) (test code = 2816) LYMPHOCYTES - REL 8 % (CELLAVISION)(BEAKER) (test code = 2817) MONOCYTES - REL 9 % (CELLAVISION)(BEAKER) (test code = 2818) BASOPHILS - REL 1 % (CELLAVISION)(BEAKER) (test code = 2820) METAMYELOCYTES - REL 2 % 0-0 H (CELLAVISION)(BEAKER) (test code = 2821) MYELOCYTES - REL 2 % 0-0 H (CELLAVISION)(BEAKER) (test code = 2822) BANDS - REL (CELLAVISION)(BEAKER) 1 % 0-10 (test code = 2826) NEUTROPHILS - ABS 9.86 K/ul 1.78-5.38 H (CELLAVISION)(BEAKER) (test code = 2830) LYMPHOCYTES - ABS 1.02 K/ul 1.32-3.57 L (CELLAVISION)(BEAKER) (test code = 2831) MONOCYTES - ABS 1.15 K/uL 0.30-0.82 H (CELLAVISION)(BEAKER) (test code = 2832) BASOPHILS - ABS 0.13 K/uL 0.01-0.08 H (CELLAVISION)(BEAKER) (test code = 2835) METAMYELOCYTES - ABS 0.26 K/uL 0.00-0.00 H (CELLAVISION)(BEAKER) (test code = 2836) MYELOCYTES-ABS 0.26 K/uL 0.00-0.00 H (CELLAVISION)(BEAKER) (test code = 2837) BANDS - ABS (CELLAVISION)(BEAKER) 0.13 K/uL 0.00-0.80 (test code = 2840) TOTAL COUNTED (BEAKER) (test code 100 = 1351) MANUAL NRBC PER 100 CELLS 4 /100 WBC 0-0 H (BEAKER) (test code = 1353) WBC MORPHOLOGY (BEAKER) (test Normal code = 487) PLT MORPHOLOGY (BEAKER) (test Normal code = 486) POLYCHROMATOPHILLIC RBCS(BEAKER) 2+ moderate (test code = 478) ANISOCYTOSIS (BEAKER) (test code 2+ moderate = 961) MICROCYTES (BEAKER) (test code = 2+ moderate 965) ARTIFACT (CELLAVISION)(BEAKER) Present (test code = 3432) PLATELET CONCENTRATION Adequate (CELLAVISION)(BEAKER) (test code = 3438) Room Attendant ID - Akosua Grissom comments: Slide comments:POCT-GLUCOSE METER 2021-11-10 07:44:45 Test Item Value Reference Range Interpretation Comments POC-GLUCOSE METER 163 mg/dL 70-110 H : TESTED A T [facility] 6720 (BEAKER) (test code = [place], 1538) 87283: Room Attendant/Techni stephanie ID = [id number] for NEO PATTERSON [id number] 06:07:18 Test Item Value Reference Range Interpretation Comments PHOSPHORUS (BEAKER) (test code = 4.4 mg/dL 2.3-4.7 604) Room Attendant ID - KEVIN LHEPATIC FUNCTION [id number] 06:07:18 Test Item Value Reference Range Interpretation Comments TOTAL PROTEIN (BEAKER) (test code = 6.2 gm/dL 6.0-8.3 770) ALBUMIN (BEAKER) (test code = 1145) 3.0 g/dL 3.5-5.0 L BILIRUBIN TOTAL (BEAKER) (test code 0.6 mg/dL 0.2-1.2 = 377) BILIRUBIN DIRECT (BEAKER) (test 0.3 mg/dL 0.1-0.5 code = 706) ALKALINE PHOSPHATASE (BEAKER) (test 173 U/L 40-150 H code = 346) AST (SGOT) (BEAKER) (test code = 20 U/L 5-34 353) ALT (SGPT) (BEAKER) (test code = 23 U/L 6-55 347) Room Attendant ID - KEVIN LCOMPREHENSIVE METABOLIC [id number] 06:07:17 Test Item Value Reference Range Interpretation Comments TOTAL PROTEIN 6.2 gm/dL 6.0-8.3 (BEAKER) (test code = 770) ALBUMIN (BEAKER) 3.0 g/dL 3.5-5.0 L (test code = 1145) ALKALINE PHOSPHATASE 173 U/L 40-150 H (BEAKER) (test code = 346) BILIRUBIN TOTAL 0.6 mg/dL 0.2-1.2 (BEAKER) (test code = 377) SODIUM (BEAKER) (test 132 meq/L 136-145 L code = 381) POTASSIUM (BEAKER) 4.0 meq/L 3.5-5.1 (test code = 379) CHLORIDE (BEAKER) 101 meq/L 98-107 (test code = 382) CO2 (BEAKER) (test 22 meq/L 22-29 code = 355) BLOOD UREA NITROGEN 35 mg/dL 7-21 H (BEAKER) (test code = 354) CREATININE (BEAKER) 2.13 mg/dL 0.57-1.25 H (test code = 358) GLUCOSE RANDOM 191 mg/dL 70-105 H (BEAKER) (test code = 652) CALCIUM (BEAKER) 8.4 mg/dL 8.4-10.2 (test code = 697) AST (SGOT) (BEAKER) 20 U/L 5-34 (test code = 353) ALT (SGPT) (BEAKER) 23 U/L 6-55 (test code = 347) EGFR (BEAKER) (test 32 mL/min/1.73 ESTIMA LIVAN GFR IS code = 1092) sq m NOT ACCURATE CREATININE CLEARANCE IN PREDICTING GLOMERULAR FILTRATION RATE . ESTIMATED GFR I S NOT APPLICABLE FOR DIALYSIS PATIEN TS. Room Attendant ID - PIALESHA [id number] 06:07:17 Test Item Value Reference Range Interpretation Comments MAGNESIUM (BEAKER) (test code = 2.2 mg/dL 1.6-2.6 627) Room Attendant ID - KEVIN LB-TYPE NATRIURETIC FACTOR (BNP)2021-11-10 05:49:01 Test Item Value Reference Range Interpretation Comments B-TYPE NATRIURETIC PEPTIDE (BEAKER) 278 pg/mL 0-100 H (test code = 700) Room Attendant ID - PIALESHA LCALCIUM, [id number] 05:42:24 Test Item Value Reference Range Interpretation Comments CALCIUM IONIZED (BEAKER) (test 1.13 mmol/L 1.12-1.27 code = 698) PH, BLOOD (BEAKER) (test code = 7.37 1810) POCT-GLUCOSE [id number] 20:59:17 Test Item Value Reference Range Interpretation Comments POC-GLUCOSE METER 191 mg/dL 70-110 H : TESTED A T [facility] 6720 (BEAKER) (test code = [place], 1538) 366[address]: Room Attendant/Techni stephanie ID = [id number] for Maryam Fernandez SARS-COV2/RT-PCR ([facility])2021-11-09 20:44:15 Test Item Value Reference Range Interpretation Comments SARS-COV2/RT-PCR (test code = Negative Negative [id number]) Negative result for this test determines that SARS-CoV-2 RNA was not present in the specimen above the Limit of Detection (LOD). However, Negative results do not preclude SARS-CoV-2 infection and should not be used as the sole basis for treatment or patient management decisions. Negative results must be combined with clinical observations, patient history, and epidemiological information. A false negative result may occur if a specimen is improperly collected, transported, or handled. A false negative result should be considered if patient's recent exposures or clinical presentation indicate that COVID-19 (SARS-CoV-2) is likely and diagnostic tests for other causes of illness are negative. Re-testing should be considered in cases of suspected false negatives.The limit of detection for this assay is 100 copies/mL.This SARS-CoV-2 test is a real-time RT_PCR test intended for the qualitative detection of nucleic acid from SARS-CoV-2 in a nasopharyngeal swab specimen collected from individuals suspected of COVID-19 by their healthcare provider.This test has not been Food and Drug Administration (FDA) cleared or approved. This is a modified version of an approved Emergency Use Authorization (EUA) and is in the process of review by the FDA. Once authorized by the FDA, the issued EUA will be effective until the declaration that circumstances exist justifying the authorization of the emergency use of in vitro diagnostic tests for detection and/or diagnosis of COVID-19 is terminated under Section 564(b)(2) of the Act or the EUA is revoked under Section 564(g) of the Act.Testing was performedusing the [employer] SARS-CoV-2 assay.Fact Sheet for Healthcare Providers:https://www.molecular.dowling/[place]/RT SARS-CoV-2 HCP Fact Sheet 51- 760065.pdfFact Sheet for Healthcare Patients:https://www.molecular.dowling/[place]/RT SARS-CoV-2 Patient Fact Sheet EN 51-453263A5.pdfPOCT-GLUCOSE [id number] 17:26:19 Test Item Value Reference Range Interpretation Comments POC-GLUCOSE METER 273 mg/dL 70-110 H : TESTED A T [facility] 6720 (BEAKER) (test code = [facility], 1538) 9[address]: Room Attendant/Techni stephanie ID = [id number] for EDISON RENDON POCT-GLUCOSE [id number] 12:15:01 Test Item Value Reference Range Interpretation Comments POC-GLUCOSE METER 241 mg/dL 70-110 H : TESTED A T [facility] 6720 (BEAKER) (test code = [facility], 1538) 88485: Room Attendant/Techni stephanie ID = [id number] for EDISON RENDON (CELLAVISION MANUAL DIFF)2021-11-09 08:20:32 Test Item Value Reference Range Interpretation Comments NEUTROPHILS - REL 62 % (CELLAVISION)(BEAKER) (test code = 2816) LYMPHOCYTES - REL 27 % (CELLAVISION)(BEAKER) (test code = 2817) MONOCYTES - REL 6 % (CELLAVISION)(BEAKER) (test code = 2818) EOSINOPHILS - REL 1 % (CELLAVISION)(BEAKER) (test code = 2819) METAMYELOCYTES - REL 2 % 0-0 H (CELLAVISION)(BEAKER) (test code = 2821) MYELOCYTES - REL 2 % 0-0 H (CELLAVISION)(BEAKER) (test code = 2822) NEUTROPHILS - ABS 7.32 K/ul 1.78-5.38 H (CELLAVISION)(BEAKER) (test code = 2830) LYMPHOCYTES - ABS 3.19 K/ul 1.32-3.57 (CELLAVISION)(BEAKER) (test code = 2831) MONOCYTES - ABS 0.71 K/uL 0.30-0.82 (CELLAVISION)(BEAKER) (test code = 2832) EOSINOPHILS - ABS 0.12 K/uL 0.04-0.54 (CELLAVISION)(BEAKER) (test code = 2834) METAMYELOCYTES - ABS 0.24 K/uL 0.00-0.00 H (CELLAVISION)(BEAKER) (test code = 2836) MYELOCYTES-ABS 0.24 K/uL 0.00-0.00 H (CELLAVISION)(BEAKER) (test code = 2837) TOTAL COUNTED (BEAKER) (test code 100 = 1351) MANUAL NRBC PER 100 CELLS (BEAKER) 1 /100 WBC 0-0 H (test code = 1353) WBC MORPHOLOGY (BEAKER) (test code Normal = 487) GIANT PLATELETS (BEAKER) (test Present code = 313) POLYCHROMATOPHILLIC RBCS(BEAKER) 3+ many (test code = 478) ANISOCYTOSIS (BEAKER) (test code = 1+ few 961) MACROCYTES (BEAKER) (test code = 1+ few 964) POIKILOCYTES (BEAKER) (test code = 1+ few 966) ELLIPTOCYTES (BEAKER) (test code = 1+ few 962) ARTIFACT (CELLAVISION)(BEAKER) Present (test code = 3432) PLATELET CONCENTRATION Adequate (CELLAVISION)(BEAKER) (test code = 3438) Room Attendant ID - jacob Martínez comments: Slide comments:CBC W/PLT COUNT & AUTO [id number] 08:20:31 Test Item Value Reference Range Interpretation Comments WHITE BLOOD CELL COUNT (BEAKER) 11.8 K/ L 3.5-10.5 H (test code = 775) RED BLOOD CELL COUNT (BEAKER) 2.46 M/ L 4.63-6.08 L (test code = 761) HEMOGLOBIN (BEAKER) (test code = 7.8 GM/DL 13.7-17.5 L 410) HEMATOCRIT (BEAKER) (test code = 26.0 % 40.1-51.0 L 411) MEAN CORPUSCULAR VOLUME (BEAKER) 105.7 fL 79.0-92.2 H (test code = 753) MEAN CORPUSCULAR HEMOGLOBIN 31.7 pg 25.7-32.2 (BEAKER) (test code = 751) MEAN CORPUSCULAR HEMOGLOBIN CONC 30.0 GM/DL 32.3-36.5 L (BEAKER) (test code = 752) RED CELL DISTRIBUTION WIDTH 17.4 % 11.6-14.4 H (BEAKER) (test code = 412) PLATELET COUNT (BEAKER) (test 268 K/CU MM 150-450 code = 756) MEAN PLATELET VOLUME (BEAKER) 10.0 fL 9.4-12.4 (test code = 754) NUCLEATED RED BLOOD CELLS 1 /100 WBC 0-0 H (BEAKER) (test code = 413) POCT-GLUCOSE [id number] 07:41:35 Test Item Value Reference Range Interpretation Comments POC-GLUCOSE METER 198 mg/dL 70-110 H : TESTED A T [facility] 6720 (BEAKER) (test code = [facility] [place], 1538) 53[address]: Room Attendant/Techni stephanie ID = [id number] for EDISON RENDON [id number] 06:59:46 Test Item Value Reference Range Interpretation Comments FERRITIN (BEAKER) (test code = 607.92 ng/mL 5.00-275.00 H 361) Room Attendant ID Doug BROWN [id number] 06:49:25 Test Item Value Reference Range Interpretation Comments PHOSPHORUS (BEAKER) (test code = 4.7 mg/dL 2.3-4.7 604) Room Attendant ID Doug BROWN LHEPATIC FUNCTION [id number] 06:49:25 Test Item Value Reference Range Interpretation Comments TOTAL PROTEIN (BEAKER) (test code = 6.2 gm/dL 6.0-8.3 770) ALBUMIN (BEAKER) (test code = 1145) 3.0 g/dL 3.5-5.0 L BILIRUBIN TOTAL (BEAKER) (test code 0.5 mg/dL 0.2-1.2 = 377) BILIRUBIN DIRECT (BEAKER) (test 0.3 mg/dL 0.1-0.5 code = 706) ALKALINE PHOSPHATASE (BEAKER) (test 175 U/L 40-150 H code = 346) AST (SGOT) (BEAKER) (test code = 22 U/L 5-34 353) ALT (SGPT) (BEAKER) (test code = 24 U/L 6-55 347) Room Attendant ID - KEVIN LBASIC METABOLIC [id number] 06:49:24 Test Item Value Reference Range Interpretation Comments SODIUM (BEAKER) 133 meq/L 136-145 L (test code = 381) POTASSIUM (BEAKER) 4.1 meq/L 3.5-5.1 (test code = 379) CHLORIDE (BEAKER) 102 meq/L 98-107 (test code = 382) CO2 (BEAKER) (test 23 meq/L 22-29 code = 355) BLOOD UREA NITROGEN 36 mg/dL 7-21 H (BEAKER) (test code = 354) CREATININE (BEAKER) 2.01 mg/dL 0.57-1.25 H (test code = 358) GLUCOSE RANDOM 262 mg/dL 70-105 H (BEAKER) (test code = 652) CALCIUM (BEAKER) 8.7 mg/dL 8.4-10.2 (test code = 697) EGFR (BEAKER) (test 34 mL/min/1.73 ESTIMA LIVAN GFR IS code = 1092) sq m NOT ACCURATE CREATININE CLEARANCE IN PREDICTING GLOMERULAR FILTRATION RATE . ESTIMATED GFR I S NOT APPLICABLE FOR DIALYSIS PATIEN TS. Room Attendant ID - KEVIN [id number] 06:49:24 Test Item Value Reference Range Interpretation Comments MAGNESIUM (BEAKER) (test code = 2.4 mg/dL 1.6-2.6 627) Room Attendant ID - KEVIN TREVOR, TIBC, % SAT. (WITHOUT FERRITIN)2021-11-09 06:42:40 Test Item Value Reference Range Interpretation Comments IRON (BEAKER) (test code = 547) 48.0 ug/dL 40.0-160.0 TOTAL IRON BINDING CAPACITY 255 ug/dL 250-450 (BEAKER) (test code = 769) IRON % SATURATION (2) (BEAKER) 19 % 20-55 L (test code = 2590) Room Attendant ID - KEVIN LCALCIUM, [id number] 05:50:16 Test Item Value Reference Range Interpretation Comments CALCIUM IONIZED (BEAKER) (test 1.15 mmol/L 1.12-1.27 code = 698) PH, BLOOD (BEAKER) (test code = 7.38 1810) POCT-GLUCOSE [id number] 21:02:18 Test Item Value Reference Range Interpretation Comments POC-GLUCOSE METER 269 mg/dL 70-110 H : [facility] (BE[facility]ER[facility] (test code = [place], 1538) [address]: Room Attendant/Techni stephanie ID = [id number] for Do , Maryam POCT-GLUCOSE [id number] 17:50:33 Test Item Value Reference Range Interpretation Comments POC-GLUCOSE METER 265 mg/dL 70-110 H : TESTED A T [facility] 6720 (BEAKER) (test code = [facility], 1538) 19[address]: Room Attendant/Techni stephanie ID = [id number] for DEBRA REID PERIPHERAL BLOOD SMEAR - PATHOLOGIST [id number] 14:26:14 Test Item Value Reference Range Interpretation Comments PERIPHERAL SMR REVIEW No circulating blasts. (BEAKER) (test code = No significantly 2640) increased schistocytes. [id number] Randall Lui, (BEAKER) (test code = M.D.(electronic 3592) signature) (CELLAVISION MANUAL DIFF)2021-11-08 11:36:03 Test Item Value Reference Range Interpretation Comments NEUTROPHILS - REL 66 % (CELLAVISION)(BEAKER) (test code = 2816) LYMPHOCYTES - REL 18 % (CELLAVISION)(BEAKER) (test code = 2817) MONOCYTES - REL 7 % (CELLAVISION)(BEAKER) (test code = 2818) EOSINOPHILS - REL 3 % (CELLAVISION)(BEAKER) (test code = 2819) METAMYELOCYTES - REL 2 % 0-0 H (CELLAVISION)(BEAKER) (test code = 2821) MYELOCYTES - REL 1 % 0-0 H (CELLAVISION)(BEAKER) (test code = 2822) PROMYELOCYTES - REL 1 % 0-0 H (CELLAVSION)(BEAKER) (test code = 2825) BANDS - REL (CELLAVISION)(BEAKER) 1 % 0-10 (test code = 2826) ATYPICAL LYMPHOCYTES - REL 1 % 0-0 H (CELLAVISION)(BEAKER) (test code = 2829) NEUTROPHILS - ABS 9.11 K/ul 1.78-5.38 H (CELLAVISION)(BEAKER) (test code = 2830) LYMPHOCYTES - ABS 2.48 K/ul 1.32-3.57 (CELLAVISION)(BEAKER) (test code = 2831) MONOCYTES - ABS 0.97 K/uL 0.30-0.82 H (CELLAVISION)(BEAKER) (test code = 2832) EOSINOPHILS - ABS 0.41 K/uL 0.04-0.54 (CELLAVISION)(BEAKER) (test code = 2834) METAMYELOCYTES - ABS 0.28 K/uL 0.00-0.00 H (CELLAVISION)(BEAKER) (test code = 2836) MYELOCYTES-ABS 0.14 K/uL 0.00-0.00 H (CELLAVISION)(BEAKER) (test code = 2837) PROMYELOCYTES - ABS 0.14 K/uL 0.00-0.00 H (CELLAVISION)(BEAKER) (test code = 2838) BANDS - ABS (CELLAVISION)(BEAKER) 0.14 K/uL 0.00-0.80 (test code = 2840) ATYPICAL LYMPHOCYTES - ABS 0.14 K/uL 0.00-0.00 H (CELLAVISION)(BEAKER) (test code = 2858) TOTAL COUNTED (BEAKER) (test code 100 = 1351) MANUAL NRBC PER 100 CELLS 1 /100 WBC 0-0 H (BEAKER) (test code = 1353) SMUDGE CELLS (BEAKER) (test code Present = 1371) GIANT PLATELETS (BEAKER) (test Present code = 313) POLYCHROMATOPHILLIC RBCS(BEAKER) 2+ moderate (test code = 478) ANISOCYTOSIS (BEAKER) (test code 1+ few = 961) SCHISTOCYTES (BEAKER) (test code 1+ few = 765) SADA CELLS (BEAKER) (test code = 1+ few 474) PLATELET CONCENTRATION Adequate (CELLAVISION)(BEAKER) (test code = 3438) Room Attendant ID - Jose Hauser comments: Slide comments:CBC W/PLT COUNT & AUTO [id number] 11:35:51 Test Item Value Reference Range Interpretation Comments WHITE BLOOD CELL COUNT (BEAKER) 13.8 K/ L 3.5-10.5 H (test code = 775) RED BLOOD CELL COUNT (BEAKER) 2.42 M/ L 4.63-6.08 L (test code = 761) HEMOGLOBIN (BEAKER) (test code = 7.5 GM/DL 13.7-17.5 L 410) HEMATOCRIT (BEAKER) (test code = 24.5 % 40.1-51.0 L 411) MEAN CORPUSCULAR VOLUME (BEAKER) 101.2 fL 79.0-92.2 H (test code = 753) MEAN CORPUSCULAR HEMOGLOBIN 31.0 pg 25.7-32.2 (BEAKER) (test code = 751) MEAN CORPUSCULAR HEMOGLOBIN CONC 30.6 GM/DL 32.3-36.5 L (BEAKER) (test code = 752) RED CELL DISTRIBUTION WIDTH 16.8 % 11.6-14.4 H (BEAKER) (test code = 412) PLATELET COUNT (BEAKER) (test 255 K/CU MM 150-450 code = 756) MEAN PLATELET VOLUME (BEAKER) 10.0 fL 9.4-12.4 (test code = 754) NUCLEATED RED BLOOD CELLS 0 /100 WBC 0-0 (BEAKER) (test code = 413) POCT-GLUCOSE [id number] 08:51:47 Test Item Value Reference Range Interpretation Comments POC-GLUCOSE METER 196 mg/dL 70-110 H : TESTED A T [facility] 6720 (BEAKER) (test code = [place], 1538) [address]: Room Attendant/Techni stephanie ID = [id number] for ARISTIDES LAM HEPATIC FUNCTION [id number] 06:03:48 Test Item Value Reference Range Interpretation Comments TOTAL PROTEIN (BEAKER) (test code = 6.4 gm/dL 6.0-8.3 770) ALBUMIN (BEAKER) (test code = 1145) 3.2 g/dL 3.5-5.0 L BILIRUBIN TOTAL (BEAKER) (test code 0.6 mg/dL 0.2-1.2 = 377) BILIRUBIN DIRECT (BEAKER) (test 0.3 mg/dL 0.1-0.5 code = 706) ALKALINE PHOSPHATASE (BEAKER) (test 178 U/L 40-150 H code = 346) AST (SGOT) (BEAKER) (test code = 22 U/L 5-34 353) ALT (SGPT) (BEAKER) (test code = 25 U/L 6-55 347) Room Attendant ID - PIAYA LCOMPREHENSIVE METABOLIC [id number] 06:03:47 Test Item Value Reference Range Interpretation Comments TOTAL PROTEIN 6.4 gm/dL 6.0-8.3 (BEAKER) (test code = 770) ALBUMIN (BEAKER) 3.2 g/dL 3.5-5.0 L (test code = 1145) ALKALINE PHOSPHATASE 178 U/L 40-150 H (BEAKER) (test code = 346) BILIRUBIN TOTAL 0.6 mg/dL 0.2-1.2 (BEAKER) (test code = 377) SODIUM (BEAKER) (test 131 meq/L 136-145 L code = 381) POTASSIUM (BEAKER) 4.3 meq/L 3.5-5.1 (test code = 379) CHLORIDE (BEAKER) 100 meq/L 98-107 (test code = 382) CO2 (BEAKER) (test 21 meq/L 22-29 L code = 355) BLOOD UREA NITROGEN 37 mg/dL 7-21 H (BEAKER) (test code = 354) CREATININE (BEAKER) 2.08 mg/dL 0.57-1.25 H (test code = 358) GLUCOSE RANDOM 241 mg/dL 70-105 H (BEAKER) (test code = 652) CALCIUM (BEAKER) 8.5 mg/dL 8.4-10.2 (test code = 697) AST (SGOT) (BEAKER) 22 U/L 5-34 (test code = 353) ALT (SGPT) (BEAKER) 25 U/L 6-55 (test code = 347) EGFR (BEAKER) (test 33 mL/min/1.73 ESTIMA LIVAN GFR IS code = 1092) sq m NOT ACCURATE CREATININE CLEARANCE IN PREDICTING GLOMERULAR FILTRATION RATE . ESTIMATED GFR I S NOT APPLICABLE FOR DIALYSIS PATIEN TS. Room Attendant ID - PIALESHA [id number] 06:03:47 Test Item Value Reference Range Interpretation Comments MAGNESIUM (BEAKER) (test code = 2.4 mg/dL 1.6-2.6 627) Room Attendant ID - PIALESHA [id number] 06:03:47 Test Item Value Reference Range Interpretation Comments PHOSPHORUS (BEAKER) (test code = 4.7 mg/dL 2.3-4.7 604) Room Attendant ID - KEVIN LCALCIUM, [id number] 05:04:34 Test Item Value Reference Range Interpretation Comments CALCIUM IONIZED (BEAKER) (test 1.12 mmol/L 1.12-1.27 code = 698) PH, BLOOD (BEAKER) (test code = 7.37 1810) [id number] 04:56:09 Test Item Value Reference Range Interpretation Comments FIBRINOGEN LEVEL (REILLY) (test 213 mg/dl 225-434 L code = 658) RAD, CHEST, 1 VIEW, NON [id number] 02:19:00Reason for exam:->evaluate for pulmonary edemaShould this be performed at the bedside?->Yes [facility] 1960 Sex: MFINAL REPORT EXAM/TECHNIQUE: Single view frontal radiograph of the chest. INDICATION: Pulmonary edema. COMPARISON: 11/05/2021 FINDINGS: Devices/Objects: None. Lungs: No new focal consolidation or pleural fluid accumulation. Heart/Mediastinum: Similar cardiomegaly with decreased interstitial thickening. Osseous: No acute osseous process. No suspicious osseous lesion. Upper abdomen: Unremarkable. Impression: Slightly decreased pulmonary edema. Signed: Dorian Noethe [facility] Verified Date/Time: 11/08/2021 02:19:47 Electronically signed by: DORIAN NOE MD on 10/2021 02:19 AMPOCT-GLUCOSE [id number] 21:36:38 Test Item Value Reference Range Interpretation Comments POC-GLUCOSE METER 254 mg/dL 70-110 H : Notified RN/: (REILLY) (test code = TESTED AT [facility] 6720 1538) [facility], [id number]: Room Attendant/Techni stephanie ID = [id number] for Gerardo Ayalakarli CT, CHEST, WITHOUT [id number] 21:21:00Unlisted Reason for Exam - Click Yes and Enter Reason Below->YesUnlisted Reason for Exam->concern for bleedingSUTTER [facility]ADOR [facility]: [facility] : 1960 Sex: MFINAL REPORT EXAM/TECHNIQUE: CT chest without IV contrast. CT of the abdomen and pelvis without contrast. Dose modulation, iterative reconstruction, and/or weight based adjustment of the mA/kV was utilized to reduce the radiation dose to as low as reasonably achievable. INDICATION: Hypotension, bleeding. COMPARISON: CT abdomen pelvis from 10/26/2021 FINDINGS: CHEST Lower Neck: Unremarkable. Parenchyma/Pleura: Small bilateral pleural effusions. No focal consolidation. No suspicious pulmonary nodule. Airways: Unremarkable. Cardiac: Borderline cardiomegaly. Small pericardial effusion. Mediastinum/lymph nodes: No lymphadenopathy. Vessels: Unremarkable. Osseous: No acute osseous process. No suspicious osseous lesion. BODY Liver: Unremarkable. Biliary: The gallbladder and intrahepatic and extrahepatic biliary systems are unremarkable. Spleen: Unremarkable. Pancreas: Unremarkable. Adrenals: Unremarkable. Kidneys: No hydronephrosis. No urinary calculi. Bowel: Normal appearance of the colon. The appendix is not visualized, though there does not appear to be any pericecal inflammation. The small bowel and stomach are normal in appearance without findings of obstruction. Lymph nodes: No lymphadenopathy by size criteria. Mesentery: No ascites. No pneumoperitoneum. Pelvis: Prostatomegaly may represent benign prostatic hyperplasia. Seminal vesicles are unremarkable. Intravesicular air is present. Correlate for recent instrumentation. Vessels: Unremarkable. Osseous: No acute osseous process. No suspicious osseous lesions. Impression: 1.Small bilateral pleural effusions, septal thickening, and cardiomegaly are suspicious for pulmonary edema.2.Otherwise, no acute process in the chest, abdomen, or pelvis on this noncontrast exam. Signed: Dorian Noe [facility] Verified Date/Time: 11/07/2021 21:21:12 CT, [id number] 21:21:00Unlisted Reason for Exam - Click Yes and Enter Reason Below->YesUnlisted Reason for Exam- >r/o bleedIs this for enterography?->NoWill this procedure require oral contrast?->NoSUT[facility]Name: [facility] : 1960 Sex: MFINAL REPORT EXAM/TECHNIQUE: CT chest without IV contrast. CT of the abdomen and pelvis without contrast. Dose modulation, iterative reconstruction, and/or weight based adjustment of the mA/kV was utilized to reduce the radiation dose to as low as reasonably achievable. INDICATION: Hypotension, bleeding. COMPARISON: CT abdomen pelvis from 10/26/2021 FINDINGS: CHEST Lower Neck: Unremarkable. Parenchyma/Pleura: Small bilateral pleural effusions. No focal consolidation. No suspicious pulmonary nodule. Airways: Unremarkable. Cardiac: Borderline cardiomegaly. Small pericardial effusion. Mediastinum/lymph nodes: No lymphadenopathy. Vessels: Unremarkable. Osseous: No acute osseous process. No suspicious osseous lesion. BODY Liver: Unremarkable. Biliary: The gallbladder and intrahepatic and extrahepatic biliary systems are unremarkable. Spleen: Unremarkable. Pancreas: Unremarkable. Adrenals: Unremarkable. Kidneys: No hydronephrosis. No urinary calculi. Bowel: Normal appearance of the colon. The appendix is not visualized, though there does not appear to be any pericecal inflammation. The small bowel and stomach are normal in appearance without findings of obstruction. Lymph nodes: No lymphadenopathy by size criteria. Mesentery: No ascites. No pneumoperitoneum. Pelvis: Prostatomegaly may represent benign prostatic hyperplasia. Seminal vesicles are unremarkable. Intravesicular air is present. Correlate for recent instrumentation. Vessels: Unremarkable. Osseous: No acute osseous process. No suspicious osseous lesions. Impression: 1.Small bilateral pleural effusions, septal thickening, and cardiomegaly are suspicious for pulmonary edema.2.Otherwise, no acute process in the chest, abdomen, or pelvis on this noncontrast exam. Signed: Dorian Noe [facility] Verified Date/Time: 11/07/2021 21:21:12 [id number] 20:01:15 Test Item Value Reference Range Interpretation Comments FIBRINOGEN LEVEL (BEAKER) (test 197 mg/dl 225-434 L code = 658) CBC (HEMOGRAM ONLY)2021-11-07 19:49:29 Test Item Value Reference Range Interpretation Comments WHITE BLOOD CELL COUNT (BEAKER) 14.1 K/ L 3.5-10.5 H (test code = 775) RED BLOOD CELL COUNT (BEAKER) 2.32 M/ L 4.63-6.08 L (test code = 761) HEMOGLOBIN (BEAKER) (test code = 7.4 GM/DL 13.7-17.5 L 410) HEMATOCRIT (BEAKER) (test code = 23.4 % 40.1-51.0 L 411) MEAN CORPUSCULAR VOLUME (BEAKER) 100.9 fL 79.0-92.2 H (test code = 753) MEAN CORPUSCULAR HEMOGLOBIN 31.9 pg 25.7-32.2 (BEAKER) (test code = 751) MEAN CORPUSCULAR HEMOGLOBIN CONC 31.6 GM/DL 32.3-36.5 L (BEAKER) (test code = 752) RED CELL DISTRIBUTION WIDTH 16.3 % 11.6-14.4 H (BEAKER) (test code = 412) PLATELET COUNT (BEAKER) (test 242 K/CU MM 150-450 code = 756) MEAN PLATELET VOLUME (BEAKER) 10.1 fL 9.4-12.4 (test code = 754) NUCLEATED RED BLOOD CELLS 0 /100 WBC 0-0 (BEAKER) (test code = 413) POCT-GLUCOSE [id number] 16:21:02 Test Item Value Reference Range Interpretation Comments POC-GLUCOSE METER 206 mg/dL 70-110 H : TESTED A T [facility] 6720 ([facility]) (test code = [facility], 1538) [id number]: Room Attendant/Techni stephanie ID = [id number] for AG UILAR, MALU POCT-GLUCOSE [id number] 11:34:10 Test Item Value Reference Range Interpretation Comments POC-GLUCOSE METER 296 mg/dL 70-110 H : TESTED A T [facility] 6720 (BEAKER) (test code = [facility], 1538) [id number]: Room Attendant/Techni stephanie ID = [id number] for AG UILAR, MALU [id number] 10:28:26 Test Item Value Reference Range Interpretation Comments PARTIAL THROMBOPLASTIN TIME 80.4 seconds 22.5-36.0 H (BEAKER) (test code = 760) [id number] 10:27:27 Test Item Value Reference Range Interpretation Comments FIBRINOGEN LEVEL (BEAKER) (test 199 mg/dl 225-434 L code = 658) PROTHROMBIN TIME/[id number] 10:26:49 Test Item Value Reference Range Interpretation Comments PROTIME (BEAKER) 14.1 seconds 11.9-14.2 (test code = 759) INR (BEAKER) (test 1.11 See_Comment [Automat ed message] code = 370) The system [employer] generated this result transmitted ref erence range: <=5.90. The reference range was not used to int erpret this result as normal/abnormal . RECOMMENDED COUMADIN/WARFARIN INR THERAPY RANGESSTANDARD DOSE: 2.0 - 3.0 Includes: PROPHYLAXIS forvenous thrombosis, systemic embolization; TREATMENT for venous thrombosis and/or pulmonary embolus.HIGH RISK: Target INR is 2.5-3.5 for patients with mechanical heart valves.CBC W/PLT COUNT & AUTO DIFFERENTIAL 2021-11-07 10:20:06 Test Item Value Reference Range Interpretation Comments WHITE BLOOD CELL COUNT (BEAKER) 12.7 K/ L 3.5-10.5 H (test code = 775) RED BLOOD CELL COUNT (BEAKER) 2.29 M/ L 4.63-6.08 L (test code = 761) HEMOGLOBIN (BEAKER) (test code = 7.2 GM/DL 13.7-17.5 L 410) HEMATOCRIT (BEAKER) (test code = 23.4 % 40.1-51.0 L 411) MEAN CORPUSCULAR VOLUME (BEAKER) 102.2 fL 79.0-92.2 H (test code = 753) MEAN CORPUSCULAR HEMOGLOBIN 31.4 pg 25.7-32.2 (BEAKER) (test code = 751) MEAN CORPUSCULAR HEMOGLOBIN CONC 30.8 GM/DL 32.3-36.5 L (BEAKER) (test code = 752) RED CELL DISTRIBUTION WIDTH 15.9 % 11.6-14.4 H (BEAKER) (test code = 412) PLATELET COUNT (BEAKER) (test 243 K/CU MM 150-450 code = 756) MEAN PLATELET VOLUME (BEAKER) 10.1 fL 9.4-12.4 (test code = 754) NUCLEATED RED BLOOD CELLS 0 /100 WBC 0-0 (BEAKER) (test code = 413) NEUTROPHILS RELATIVE PERCENT 64 % (BEAKER) (test code = 429) LYMPHOCYTES RELATIVE PERCENT 18 % (BEAKER) (test code = 430) MONOCYTES RELATIVE PERCENT 11 % (BEAKER) (test code = 431) EOSINOPHILS RELATIVE PERCENT 1 % (BEAKER) (test code = 432) BASOPHILS RELATIVE PERCENT 1 % (BEAKER) (test code = 437) NEUTROPHILS ABSOLUTE COUNT 8.17 K/ L 1.78-5.38 H (BEAKER) (test code = 670) LYMPHOCYTES ABSOLUTE COUNT 2.24 K/ L 1.32-3.57 (BEAKER) (test code = 414) MONOCYTES ABSOLUTE COUNT (BEAKER) 1.41 K/ L 0.30-0.82 H (test code = 415) EOSINOPHILS ABSOLUTE COUNT 0.17 K/ L 0.04-0.54 (BEAKER) (test code = 416) BASOPHILS ABSOLUTE COUNT (BEAKER) 0.07 K/ L 0.01-0.08 (test code = 417) IMMATURE GRANULOCYTES-RELATIVE 5 % 0-1 H PERCENT (BEAKER) (test code = 2801) POCT-GLUCOSE [id number] 07:43:40 Test Item Value Reference Range Interpretation Comments POC-GLUCOSE METER 181 mg/dL 70-110 H : TESTED A T [facility] 6720 (BEAKER) (test code = [place], 1538) [id number]: Room Attendant/Techni stephanie ID = [id number] for MALU PEARSON HEPATIC FUNCTION [id number] 05:32:54 Test Item Value Reference Range Interpretation Comments TOTAL PROTEIN (BEAKER) (test code = 5.6 gm/dL 6.0-8.3 L 770) ALBUMIN (BEAKER) (test code = 1145) 2.8 g/dL 3.5-5.0 L BILIRUBIN TOTAL (BEAKER) (test code 0.5 mg/dL 0.2-1.2 = 377) BILIRUBIN DIRECT (BEAKER) (test 0.2 mg/dL 0.1-0.5 code = 706) ALKALINE PHOSPHATASE (BEAKER) (test 150 U/L 40-150 code = 346) AST (SGOT) (BEAKER) (test code = 19 U/L 5-34 353) ALT (SGPT) (BEAKER) (test code = 23 U/L 6-55 347) Room Attendant ID - DBBASIC METABOLIC [id number] 05:32:53 Test Item Value Reference Range Interpretation Comments SODIUM (BEAKER) 131 meq/L 136-145 L (test code = 381) POTASSIUM (BEAKER) 3.9 meq/L 3.5-5.1 (test code = 379) CHLORIDE (BEAKER) 100 meq/L 98-107 (test code = 382) CO2 (BEAKER) (test 21 meq/L 22-29 L code = 355) BLOOD UREA NITROGEN 40 mg/dL 7-21 H (BEAKER) (test code = 354) CREATININE (BEAKER) 2.08 mg/dL 0.57-1.25 H (test code = 358) GLUCOSE RANDOM 188 mg/dL 70-105 H (BEAKER) (test code = 652) CALCIUM (BEAKER) 8.0 mg/dL 8.4-10.2 L (test code = 697) EGFR (BEAKER) (test 33 mL/min/1.73 ESTIMA LIVAN GFR IS code = 1092) sq m NOT ACCURATE CREATININE CLEARANCE IN PREDICTING GLOMERULAR FILTRATION RATE . ESTIMATED GFR I S NOT APPLICABLE FOR DIALYSIS PATIEN TS. Room Attendant ID - [id number] 05:32:53 Test Item Value Reference Range Interpretation Comments MAGNESIUM (BEAKER) (test code = 2.2 mg/dL 1.6-2.6 627) Room Attendant ID - [id number] 05:27:13 Test Item Value Reference Range Interpretation Comments PARTIAL THROMBOPLASTIN TIME 87.5 seconds 22.5-36.0 H (BEAKER) (test code = 760) [id number] 05:26:09 Test Item Value Reference Range Interpretation Comments FIBRINOGEN LEVEL (BEAKER) (test 178 mg/dl 225-434 L code = 658) CBC (HEMOGRAM ONLY)2021-11-07 04:53:34 Test Item Value Reference Range Interpretation Comments WHITE BLOOD CELL COUNT (BEAKER) 13.2 K/ L 3.5-10.5 H (test code = 775) RED BLOOD CELL COUNT (BEAKER) 2.29 M/ L 4.63-6.08 L (test code = 761) HEMOGLOBIN (BEAKER) (test code = 7.2 GM/DL 13.7-17.5 L 410) HEMATOCRIT (BEAKER) (test code = 22.6 % 40.1-51.0 L 411) MEAN CORPUSCULAR VOLUME (BEAKER) 98.7 fL 79.0-92.2 H (test code = 753) MEAN CORPUSCULAR HEMOGLOBIN 31.4 pg 25.7-32.2 (BEAKER) (test code = 751) MEAN CORPUSCULAR HEMOGLOBIN CONC 31.9 GM/DL 32.3-36.5 L (BEAKER) (test code = 752) RED CELL DISTRIBUTION WIDTH 15.7 % 11.6-14.4 H (BEAKER) (test code = 412) PLATELET COUNT (BEAKER) (test 235 K/CU MM 150-450 code = 756) MEAN PLATELET VOLUME (BEAKER) 10.1 fL 9.4-12.4 (test code = 754) NUCLEATED RED BLOOD CELLS 0 /100 WBC 0-0 (BEAKER) (test code = 413) [id number] 22:53:08 Test Item Value Reference Range Interpretation Comments FIBRINOGEN LEVEL (BEAKER) (test 192 mg/dl 225-434 L code = 658) [id number] 22:49:10 Test Item Value Reference Range Interpretation Comments PARTIAL THROMBOPLASTIN TIME 72.1 seconds 22.5-36.0 H (REILLY) (test code = 760) POCT-GLUCOSE [id number] 21:45:24 Test Item Value Reference Range Interpretation Comments POC-GLUCOSE METER 213 mg/dL 70-110 H : Notified RN/MD: (REILLY) (test code = TESTED AT [facility] 6720 1538) [facility], [id number]: Room Attendant/Techni stephanie ID = [id number] for CE CALVIN MATTA MR, CARDIAC, [id number] 20:35:00Unlisted Reason for Exam - Click Yes and Enter Reason Below->No [facility] : 1960 Sex: MFINAL REPORT Cardiovascular MRI - Chest: 11/02/2021 10:43 AM. Comparison: None available. Clinical History: 61 years old Male with congestive cardiac failure and history of acute myocardial infarction. Indication: This study is performed to assess myocardial damage, viability, and to quantitate left ventricular and valvular function. Technique: Tracee Achieva 1.5 Julianne MRI scanner.* Turbo spin echo and gradient echo imaging for anatomic definition.* Dynamic cine imaging for cardiac chamber, wall-motion, and valvular analysis.* Flow quantification sequences for hemodynamics.* Navigator- gated, whole-heart coronary MRA sequence for cardiac chamber anatomy and coronaryartery origins.* T2 weighted STIR imaging (with triple IR preparation) for edema analysis.* Delayed gadolinium-enhancement analysis (inversion recovery gradient echo sequence) after injection of gadolinium-chelate (15 cc of Gadavist). RESULT: Potential study limitations: None. CHEST: The chest wall is remarkable for prior median sternotomy with magnetic susceptibility artifact. The mediastinum appears normal. No significant adenopathy is identified. This study was not optimized to assess the lungs however, limited imaging reveals no gross abnormalities. The main pulmonary artery is enlarged measuring 3.3 cm. The pericardium is unremarkable. VASCULAR:The aortic root is normal in dimension. Thesinotubular junction is preserved. The thoracic aorta and aortic arch: Normal in course and caliber. The arch vessel branching pattern is normal. There is no acute aortic pathology, such as dissection, intramural hematoma, or contained rupture. CARDIAC CHAMBERS:The cardiac chambers have normal atriov entricular and ventriculoarterial concordance, as well as normal systemic and pulmonary venous return. The cardiac chamber sizes are notable for moderate left and mild right atrial enlargement. Left Ventricle:The left ventricle is normal in size and shape, and has normal systolic function. The left ventricular myocardium is normal in thickness. Basal to apical inferior wall, basal to mid inferolateral wall and apical septum are severely hypokinetic. All of the segments have normal contractility. Quantitative left ventricular functional values are as follows:EDV = 278 cc (normal 115-198 cc); EDVi = 121 cc/m2 (normal 63-98 cc/m2).ESV = 167 cc (normal 30-75 cc); ESVi = 73 cc/m2 (normal 16-38 cc/m2).Stroke volume = 111 cc (normal 76-132 cc); SVi = 48 cc/m2 (normal 41-65 cc/m2).LVEF = 40 % (normal 55-75%).Cardiac Output = 7.2 l/min.; Cardiac Index = 3.1 l/min/m2. There is no increased myocardial signal intensity on T2 STIR imaging to suggest myocardial inflammation or edema. Delayed-enhancement imaging reveals delayed-enhancement in an ischemic pattern. Specifically, a near transmural pattern of delayed enhancement involving the mid inferior, mid inferolateral and apical inferior wall. A subendocardial pattern of delayed enhancement involving basal inferior, basal inferolateral and apicalseptal rebolledo. -In summary, mid to apical inferior and inferolateral rebolledo are not viable, all other segments are viable. No mural or apical left ventricular thrombus is identified. Scar score = 16/68 (semi-quantitative scar assessment was performed on a standard 17-segments model as follows:0 = no scar, 1 = 1-25% transmurality, 2 = 26-50% transmurality, 3 = 51-75% transmurality, 4 = greater than 75%;total scar score is generated out of a maximum of 68 points). Transmurality index = 3/17 (representsthe number of segments with greater than or equal to 51% transmurality). Right Ventricle:The right ventricle is normal in size and shape, and has normal systolic function on qualitative assessment, wher e imaged. VALVES:The mitral valve is moderately thickened (leaflet calcification is not assessed through cardiac MRI. There is moderate mitral regurgitation with a central jet of insufficiency.Integrating LV volumetric and aortic flow quantification data reveals:*Quantitative mitral regurgitant volume: 41 cc/beat*Quantitative mitral regurgitant fraction: 38 % The aortic valve is mildly thickened. There is no aortic regurgitation.Flow quantification through the ascending aorta:*Forward volume: 70 cc/beat*Reverse volume: 2 cc/beat*Net forward volume: 68 cc/beat*Aortic regurgitant fraction: 4 % The tricuspid valve is mildly thickened. There is trivial imaged tricuspid regurgitation. ABDOMEN:Limitedimaging through the upper abdomen reveals no abnormalities of the imaged organs. IMPRESSION: The constellation of findings is most suggestive of a dilated, ischemic cardiomyopathy. 1. Mildly enlarged left ventricular size with mild to moderately reduced global systolic function (LVEF: 40%, LVEDVi: 121 cc/m2). Basal to apical inferior wall, basal to mid inferolateral wall and apical septum are severely hypokinetic. All of the segments have normal contractility. - Near transmural pattern of delayed enhancement involving the mid inferior, mid inferolateral and apical inferior wall. A subendocardial pat tern of delayed enhancement involving basal inferior, basal inferolateral and apical septal rebolledo. In summary, mid to apical inferior and inferolateral rebolledo are not viable, all other segments are viable. - No mural or apical left ventricular thrombus is identified. 2. Normal right ventricular size and systolic function. 3. The mitral valve is moderately thickened (leaflet calcification is not assessed through cardiac MRI. There is moderate mitral regurgitation with a central jet of insufficiency. Quantitative mitral regurgitant volume: 41 cc/beat. Quantitative mitral regurgitant fraction: 38 %. Signed: Caesar Sidhuthe [facility] Verified Date/Time: 11/06/2021 20:35:08 BASIC METABOLIC [id number] 17:02:42 Test Item Value Reference Range Interpretation Comments SODIUM (BEAKER) 132 meq/L 136-145 L (test code = 381) POTASSIUM (BEAKER) 4.3 meq/L 3.5-5.1 (test code = 379) CHLORIDE (BEAKER) 100 meq/L 98-107 (test code = 382) CO2 (BEAKER) (test 23 meq/L 22-29 code = 355) BLOOD UREA NITROGEN 36 mg/dL 7-21 H (BEAKER) (test code = 354) CREATININE (BEAKER) 2.17 mg/dL 0.57-1.25 H (test code = 358) GLUCOSE RANDOM 207 mg/dL 70-105 H (BEAKER) (test code = 652) CALCIUM (BEAKER) 8.1 mg/dL 8.4-10.2 L (test code = 697) EGFR (BEAKER) (test 31 mL/min/1.73 ESTIMA LIVAN GFR IS code = 1092) sq m NOT ACCURATE CREATININE CLEARANCE IN PREDICTING GLOMERULAR FILTRATION RATE . ESTIMATED GFR I S NOT APPLICABLE FOR DIALYSIS PATIEN TS. Room Attendant ID - [id number] 16:47:36 Test Item Value Reference Range Interpretation Comments PARTIAL THROMBOPLASTIN TIME 76.1 seconds 22.5-36.0 H (BEAKER) (test code = 760) POCT-GLUCOSE [id number] 16:47:20 Test Item Value Reference Range Interpretation Comments POC-GLUCOSE METER 198 mg/dL 70-110 H : TESTED A T [facility] 6720 (BEAKER) (test code = [place], 1538) [id number]: Room Attendant/Techni stephanie ID = [id number] for GITA PERRY [id number] 12:50:28 Test Item Value Reference Range Interpretation Comments FIBRINOGEN LEVEL (BEAKER) (test 158 mg/dl 225-434 L code = 658) POCT-GLUCOSE [id number] 12:10:20 Test Item Value Reference Range Interpretation Comments POC-GLUCOSE METER 203 mg/dL 70-110 H : TESTED A T [facility] 6720 (BEAKER) (test code = [facility], 1538) [id number]: Room Attendant/Techni stephanie ID = [id number] for GITA PERRY CALCIUM, [id number] 12:05:36 Test Item Value Reference Range Interpretation Comments CALCIUM IONIZED (BEAKER) (test 1.11 mmol/L 1.12-1.27 L code = 698) PH, BLOOD (BEAKER) (test code = 7.40 1810) HEMOGLOBIN AND [id number] 12:04:39 Test Item Value Reference Range Interpretation Comments HEMOGLOBIN (BEAKER) (test code = 7.8 GM/DL 13.7-17.5 L 410) HEMATOCRIT (BEAKER) (test code = 24.5 % 40.1-51.0 L 411) Room Attendant ID - [id number] 08:46:33 Test Item Value Reference Range Interpretation Comments PARTIAL THROMBOPLASTIN TIME 39.7 seconds 22.5-36.0 H (BEAKER) (test code = 760) POCT-GLUCOSE [id number] 08:34:22 Test Item Value Reference Range Interpretation Comments POC-GLUCOSE METER 198 mg/dL 70-110 H : TESTED A T [facility] 6720 (BEAKER) (test code = [facility], 1538) [id number]: Room Attendant/Techni stephanie ID = [id number] for Urvashi Smith [id number] 06:07:20 Test Item Value Reference Range Interpretation Comments PARTIAL THROMBOPLASTIN TIME 112.2 seconds 22.5-36.0 H (BEAKER) (test code = 760) BASIC METABOLIC [id number] 05:40:54 Test Item Value Reference Range Interpretation Comments SODIUM (BEAKER) 133 meq/L 136-145 L (test code = 381) POTASSIUM (BEAKER) 4.2 meq/L 3.5-5.1 Specimen slightly (test code = 379) hemolyzed CHLORIDE (BEAKER) 102 meq/L 98-107 (test code = 382) CO2 (BEAKER) (test 23 meq/L 22-29 code = 355) BLOOD UREA NITROGEN 33 mg/dL 7-21 H (BEAKER) (test code = 354) CREATININE (BEAKER) 2.08 mg/dL 0.57-1.25 H Specimen slightly (test code = 358) hemolyzed GLUCOSE RANDOM 220 mg/dL 70-105 H (BEAKER) (test code = 652) CALCIUM (BEAKER) 8.1 mg/dL 8.4-10.2 L (test code = 697) EGFR (BEAKER) (test 33 mL/min/1.73 ESTIMA LIVAN GFR IS code = 1092) sq m NOT ACCURATE CREATININE CLEARANCE IN PREDICTING GLOMERULAR FILTRATION RATE . ESTIMATED GFR I S NOT APPLICABLE FOR DIALYSIS PATIEN TS. Room Attendant ID Doug CEHRY WHEPATIC FUNCTION [id number] 05:40:54 Test Item Value Reference Range Interpretation Comments TOTAL PROTEIN (BEAKER) 5.5 gm/dL 6.0-8.3 L Speci men slightly (test code = 770) hemolyzed ALBUMIN (BEAKER) (test 2.6 g/dL 3.5-5.0 L Speci men slightly code = 1145) hemolyzed BILIRUBIN TOTAL 0.6 mg/dL 0.2-1.2 Specimen sli ghtly (BEAKER) (test code = hemoly zed 377) BILIRUBIN DIRECT 0.3 mg/dL 0.1-0.5 Specimen sl ightly (BEAKER) (test code = hemoly zed 706) ALKALINE PHOSPHATASE 145 U/L 40-150 (BEAKER) (test code = 346) AST (SGOT) (BEAKER) 25 U/L 5-34 Specimen slightly (test code = 353) hemolyzed ALT (SGPT) (BEAKER) 26 U/L 6-55 Specimen slightly (test code = 347) hemolyzed Room Attendant ID - MIRI [id number] 05:40:53 Test Item Value Reference Range Interpretation Comments MAGNESIUM (BEAKER) 2.1 mg/dL 1.6-2.6 Specimen slightly (test code = 627) hemolyzed Room Attendant ID - MIRI [id number] 05:28:09 Test Item Value Reference Range Interpretation Comments FIBRINOGEN LEVEL (BEAKER) (test 160 mg/dl 225-434 L code = 658) CBC (HEMOGRAM ONLY)2021-11-06 05:17:26 Test Item Value Reference Range Interpretation Comments WHITE BLOOD CELL COUNT (BEAKER) 11.8 K/ L 3.5-10.5 H (test code = 775) RED BLOOD CELL COUNT (BEAKER) 2.48 M/ L 4.63-6.08 L (test code = 761) HEMOGLOBIN (BEAKER) (test code = 7.7 GM/DL 13.7-17.5 L 410) HEMATOCRIT (BEAKER) (test code = 24.3 % 40.1-51.0 L 411) MEAN CORPUSCULAR VOLUME (BEAKER) 98.0 fL 79.0-92.2 H (test code = 753) MEAN CORPUSCULAR HEMOGLOBIN 31.0 pg 25.7-32.2 (BEAKER) (test code = 751) MEAN CORPUSCULAR HEMOGLOBIN CONC 31.7 GM/DL 32.3-36.5 L (BEAKER) (test code = 752) RED CELL DISTRIBUTION WIDTH 14.9 % 11.6-14.4 H (BEAKER) (test code = 412) PLATELET COUNT (BEAKER) (test 243 K/CU MM 150-450 code = 756) MEAN PLATELET VOLUME (BEAKER) 10.3 fL 9.4-12.4 (test code = 754) NUCLEATED RED BLOOD CELLS 0 /100 WBC 0-0 (BEAKER) (test code = 413) [id number] 22:32:50 Test Item Value Reference Range Interpretation Comments FIBRINOGEN LEVEL (BEAKER) (test 137 mg/dl 225-434 L code = 658) [id number] 22:28:44 Test Item Value Reference Range Interpretation Comments PARTIAL THROMBOPLASTIN TIME 65.9 seconds 22.5-36.0 H (BEAKER) (test code = 760) POCT-GLUCOSE [id number] 21:26:30 Test Item Value Reference Range Interpretation Comments POC-GLUCOSE METER 276 mg/dL 70-110 H : Notified RN/MD: (BEAKER) (test code = TESTED AT [facility] 4868 6458) [facility], [address]: Room Attendant/Techni stephanie ID = [id number] for Moe Ayala [id number] 18:53:21 Test Item Value Reference Range Interpretation Comments PARTIAL THROMBOPLASTIN TIME > seconds 22.5-36.0 HH (BEAKER) (test code = 760) [id number] 18:51:49 Test Item Value Reference Range Interpretation Comments FIBRINOGEN LEVEL (BEAKER) (test 113 mg/dl 225-434 L code = 658) CBC (HEMOGRAM ONLY)2021-11-05 18:23:04 Test Item Value Reference Range Interpretation Comments WHITE BLOOD CELL COUNT (BEAKER) 13.4 K/ L 3.5-10.5 H (test code = 775) RED BLOOD CELL COUNT (BEAKER) 2.69 M/ L 4.63-6.08 L (test code = 761) HEMOGLOBIN (BEAKER) (test code = 8.3 GM/DL 13.7-17.5 L 410) HEMATOCRIT (BEAKER) (test code = 27.1 % 40.1-51.0 L 411) MEAN CORPUSCULAR VOLUME (BEAKER) 100.7 fL 79.0-92.2 H (test code = 753) MEAN CORPUSCULAR HEMOGLOBIN 30.9 pg 25.7-32.2 (BEAKER) (test code = 751) MEAN CORPUSCULAR HEMOGLOBIN CONC 30.6 GM/DL 32.3-36.5 L (BEAKER) (test code = 752) RED CELL DISTRIBUTION WIDTH 14.7 % 11.6-14.4 H (BEAKER) (test code = 412) PLATELET COUNT (BEAKER) (test 231 K/CU MM 150-450 code = 756) MEAN PLATELET VOLUME (BEAKER) 9.7 fL 9.4-12.4 (test code = 754) NUCLEATED RED BLOOD CELLS 0 /100 WBC 0-0 (BEAKER) (test code = 413) [id number] 16:06:12 Test Item Value Reference Range Interpretation Comments ACTIVATED CLOTTING TIME 249 sec : 74 -137 seconds, (BEAKER) (test code = Baseli ne: TESTED AT 441) [facility] [address] [facility] [place], [address]: Room Attendant/Techni stephanie ID = [id number] for CA RPIO, SHAHIDA [id number] 13:29:36 Test Item Value Reference Range Interpretation Comments FIBRINOGEN LEVEL (BEAKER) (test code 96 mg/dl 225-434 LL = 658) BASIC METABOLIC [id number] 13:19:53 Test Item Value Reference Range Interpretation Comments SODIUM (BEAKER) 133 meq/L 136-145 L (test code = 381) POTASSIUM (BEAKER) 4.4 meq/L 3.5-5.1 Specimen moderately (test code = 379) hemolyzed CHLORIDE (BEAKER) 101 meq/L 98-107 (test code = 382) CO2 (BEAKER) (test 23 meq/L 22-29 code = 355) BLOOD UREA NITROGEN 30 mg/dL 7-21 H (BEAKER) (test code = 354) CREATININE (BEAKER) 1.91 mg/dL 0.57-1.25 H Specimen moderately (test code = 358) hemolyzed GLUCOSE RANDOM 198 mg/dL 70-105 H (BEAKER) (test code = 652) CALCIUM (BEAKER) 8.3 mg/dL 8.4-10.2 L (test code = 697) EGFR (BEAKER) (test 36 mL/min/1.73 ESTIMA LIVAN GFR IS code = 1092) sq m NOT ACCURATE CREATININE CLEARANCE IN PREDICTING GLOMERULAR FILTRATION RATE . ESTIMATED GFR I S NOT APPLICABLE FOR DIALYSIS PATIEN TS. Room Attendant ID - DBPOCT-GLUCOSE [id number] 11:44:52 Test Item Value Reference Range Interpretation Comments POC-GLUCOSE METER 194 mg/dL 70-110 H : TESTED A T [facility] 67[address] (BEAKER) (test code = [place], 1538) [address]: Room Attendant/Techni stephanie ID = [id number] for Urvashi Smith [id number] 10:49:58 Test Item Value Reference Range Interpretation Comments FIBRINOGEN LEVEL (BEAKER) (test 101 mg/dl 225-434 L code = 658) [id number] 10:44:59 Test Item Value Reference Range Interpretation Comments PARTIAL THROMBOPLASTIN TIME 51.3 seconds 22.5-36.0 H (BEAKER) (test code = 760) RAD, CHEST, 1 VIEW, NON [id number] 09:47:00Reason for exam:->Pulmonary edemaS[facility] : 1960 Sex: MFINAL REPORT Chest, one view History: Pulmonary edema Comparison: 11/04/2021 Findings:Increasing bilateral interstitial opacities. Mild cardiomegaly. Previous CABG surgery.No pleural effusion or pneumothorax. Impression:Increasing bilateral interstitial opacities, likely interstitial edema. Signed: Oc Chicas Verified Date/Time: 11/05/2021 09:47:21 POCT-GLUCOSE [id number] 07:41:53 Test Item Value Reference Range Interpretation Comments POC-GLUCOSE METER 156 mg/dL 70-110 H : TESTED A T [facility] 67[address] (BEAKER) (test code = [place], [address]38) [address]: Room Attendant/Techni stephanie ID = [id number] for Urvashi Smith [id number] 07:32:45 Test Item Value Reference Range Interpretation Comments FIBRINOGEN LEVEL (BEAKER) (test code 85 mg/dl 225-434 LL = 658) [id number] 07:24:20 Test Item Value Reference Range Interpretation Comments PARTIAL THROMBOPLASTIN TIME 47.8 seconds 22.5-36.0 H (BEAKER) (test code = 760) BASIC METABOLIC [id number] 05:33:20 Test Item Value Reference Range Interpretation Comments SODIUM (BEAKER) 131 meq/L 136-145 L (test code = 381) POTASSIUM (BEAKER) 4.3 meq/L 3.5-5.1 Specimen slightly (test code = 379) hemolyzed CHLORIDE (BEAKER) 103 meq/L 98-107 (test code = 382) CO2 (BEAKER) (test 19 meq/L 22-29 L code = 355) BLOOD UREA NITROGEN 31 mg/dL 7-21 H (BEAKER) (test code = 354) CREATININE (BEAKER) 1.92 mg/dL 0.57-1.25 H Specimen slightly (test code = 358) hemolyzed GLUCOSE RANDOM 167 mg/dL 70-105 H (BEAKER) (test code = 652) CALCIUM (BEAKER) 7.8 mg/dL 8.4-10.2 L (test code = 697) EGFR (BEAKER) (test 36 mL/min/1.73 ESTIMA LIVAN GFR IS code = 1092) sq m NOT ACCURATE CREATININE CLEARANCE IN PREDICTING GLOMERULAR FILTRATION RATE . ESTIMATED GFR I S NOT APPLICABLE FOR DIALYSIS PATIEN TS. Room Attendant ID - [id number] 05:26:33 Test Item Value Reference Range Interpretation Comments MAGNESIUM (BEAKER) 2.2 mg/dL 1.6-2.6 Specimen slightly (test code = 627) hemolyzed Room Attendant ID - DBOperator ID - DBHEPATIC FUNCTION [id number] 05:26:33 Test Item Value Reference Range Interpretation Comments TOTAL PROTEIN (BEAKER) 6.1 gm/dL 6.0-8.3 Speci men slightly (test code = 770) hemolyzed ALBUMIN (BEAKER) (test 2.8 g/dL 3.5-5.0 L Speci men slightly code = 1145) hemolyzed BILIRUBIN TOTAL 1.0 mg/dL 0.2-1.2 Specimen sli ghtly (BEAKER) (test code = hemoly zed 377) BILIRUBIN DIRECT 0.3 mg/dL 0.1-0.5 Specimen sl ightly (BEAKER) (test code = hemoly zed 706) ALKALINE PHOSPHATASE 158 U/L 40-150 H (BEAKER) (test code = 346) AST (SGOT) (BEAKER) 33 U/L 5-34 Specimen slightly (test code = 353) hemolyzed ALT (SGPT) (BEAKER) 28 U/L 6-55 Specimen slightly (test code = 347) hemolyzed Room Attendant ID - DBCBC (HEMOGRAM ONLY)2021-11-05 04:51:04 Test Item Value Reference Range Interpretation Comments WHITE BLOOD CELL COUNT (BEAKER) 13.4 K/ L 3.5-10.5 H (test code = 775) RED BLOOD CELL COUNT (BEAKER) 2.80 M/ L 4.63-6.08 L (test code = 761) HEMOGLOBIN (BEAKER) (test code = 8.7 GM/DL 13.7-17.5 L 410) HEMATOCRIT (BEAKER) (test code = 28.3 % 40.1-51.0 L 411) MEAN CORPUSCULAR VOLUME (BEAKER) 101.1 fL 79.0-92.2 H (test code = 753) MEAN CORPUSCULAR HEMOGLOBIN 31.1 pg 25.7-32.2 (BEAKER) (test code = 751) MEAN CORPUSCULAR HEMOGLOBIN CONC 30.7 GM/DL 32.3-36.5 L (BEAKER) (test code = 752) RED CELL DISTRIBUTION WIDTH 14.6 % 11.6-14.4 H (BEAKER) (test code = 412) PLATELET COUNT (BEAKER) (test 226 K/CU MM 150-450 code = 756) MEAN PLATELET VOLUME (BEAKER) 9.8 fL 9.4-12.4 (test code = 754) NUCLEATED RED BLOOD CELLS 0 /100 WBC 0-0 (BEAKER) (test code = 413) [id number] 01:44:17 Test Item Value Reference Range Interpretation Comments FIBRINOGEN LEVEL (BEAKER) (test code 92 mg/dl 225-434 LL = 658) [id number] 01:25:41 Test Item Value Reference Range Interpretation Comments PARTIAL THROMBOPLASTIN TIME 50.5 seconds 22.5-36.0 H (BEAKER) (test code = 760) POCT-GLUCOSE [id number] 23:08:16 Test Item Value Reference Range Interpretation Comments POC-GLUCOSE METER 191 mg/dL 70-110 H : Notified RN/MD: (BEAKER) (test code = TESTED AT [facility] 8664 6926) [facility], [address]: Room Attendant/Techni stephanie ID = [id number] for THAO HERNANDEZ BASIC METABOLIC [id number] 18:50:34 Test Item Value Reference Range Interpretation Comments SODIUM (BEAKER) 130 meq/L 136-145 L (test code = 381) POTASSIUM (BEAKER) 4.6 meq/L 3.5-5.1 (test code = 379) CHLORIDE (BEAKER) 101 meq/L 98-107 (test code = 382) CO2 (BEAKER) (test 20 meq/L 22-29 L code = 355) BLOOD UREA NITROGEN 31 mg/dL 7-21 H (BEAKER) (test code = 354) CREATININE (BEAKER) 2.06 mg/dL 0.57-1.25 H (test code = 358) GLUCOSE RANDOM 237 mg/dL 70-105 H (BEAKER) (test code = 652) CALCIUM (BEAKER) 8.2 mg/dL 8.4-10.2 L (test code = 697) EGFR (BEAKER) (test 33 mL/min/1.73 ESTIMA LIVAN GFR IS code = 1092) sq m NOT ACCURATE CREATININE CLEARANCE IN PREDICTING GLOMERULAR FILTRATION RATE . ESTIMATED GFR I S NOT APPLICABLE FOR DIALYSIS PATIEN TS. Room Attendant ID - [id number] 18:48:56 Test Item Value Reference Range Interpretation Comments FIBRINOGEN LEVEL (BEAKER) (test 123 mg/dl 225-434 L code = 658) [id number] 18:38:33 Test Item Value Reference Range Interpretation Comments PARTIAL THROMBOPLASTIN TIME 77.2 seconds 22.5-36.0 H (BEAKER) (test code = 760) POCT-GLUCOSE [id number] 17:19:18 Test Item Value Reference Range Interpretation Comments POC-GLUCOSE METER 222 mg/dL 70-110 H : TESTED A T [facility] [address] (BEAKER) (test code = [facility] [place] [facility], [address]38) [address]: Room Attendant/Techni stephanie ID = [id number] for BARBARA EMANUEL B-TYPE NATRIURETIC FACTOR (BNP)2021-11-04 13:58:30 Test Item Value Reference Range Interpretation Comments B-TYPE NATRIURETIC PEPTIDE (BEAKER) 815 pg/mL 0-100 H (test code = 700) Room Attendant ID - PIAYA LRAD, CHEST, 1 VIEW, NON [id number] 13:52:00Reason for exam:->SOBShould this be performed at the bedside?->Yescath lab holding [facility] : 1960 Sex: MFINAL REPORT CLINICAL HISTORY: SOB TECHNIQUE: 1 view of the chest. COMPARISON: 11/01/2021 IMPRESSION: There are increased interstitial opacities bilaterally suggesting pulmonary edema or a nonspecific pneumonitis. There are no significant appearing effusions. The cardiomediastinal silhouette is magnified by technique with sternotomy wires. Signed: Yvette Bingham MDReport Ve rified Date/Time: 11/04/2021 13:52:14 Reading Location: [facility] Radiology Reading Room [id number] 13:49:29 Test Item Value Reference Range Interpretation Comments PHOSPHORUS (BEAKER) (test code = 4.1 mg/dL 2.3-4.7 604) Room Attendant ID - PIAYA LBASIC METABOLIC [id number] 13:49:28 Test Item Value Reference Range Interpretation Comments SODIUM (BEAKER) 132 meq/L 136-145 L (test code = 381) POTASSIUM (BEAKER) 5.0 meq/L 3.5-5.1 (test code = 379) CHLORIDE (BEAKER) 102 meq/L 98-107 (test code = 382) CO2 (BEAKER) (test 22 meq/L 22-29 code = 355) BLOOD UREA NITROGEN 30 mg/dL 7-21 H (BEAKER) (test code = 354) CREATININE (BEAKER) 2.13 mg/dL 0.57-1.25 H (test code = 358) GLUCOSE RANDOM 154 mg/dL 70-105 H (BEAKER) (test code = 652) CALCIUM (BEAKER) 8.7 mg/dL 8.4-10.2 (test code = 697) EGFR (BEAKER) (test 32 mL/min/1.73 ESTIMA LIVAN GFR IS code = 1092) sq m NOT ACCURATE CREATININE CLEARANCE IN PREDICTING GLOMERULAR FILTRATION RATE . ESTIMATED GFR I S NOT APPLICABLE FOR DIALYSIS PATIEN TS. Room Attendant ID - PIAYA [id number] 13:49:28 Test Item Value Reference Range Interpretation Comments MAGNESIUM (BEAKER) (test code = 2.5 mg/dL 1.6-2.6 627) Room Attendant ID - KEVIN LLACTIC ACID, [id number] 13:45:02 Test Item Value Reference Range Interpretation Comments LACTATE BLOOD VENOUS (2) (BEAKER) 1.35 mmol/L 0.50-2.20 (test code = 2872) Room Attendant ID - KEVIN [id number] 13:43:27 Test Item Value Reference Range Interpretation Comments FIBRINOGEN LEVEL (BEAKER) (test 512 mg/dl 225-434 H code = 658) CBC W/PLT COUNT & AUTO [id number] 13:32:32 Test Item Value Reference Range Interpretation Comments WHITE BLOOD CELL COUNT (BEAKER) 13.6 K/ L 3.5-10.5 H (test code = 775) RED BLOOD CELL COUNT (BEAKER) 3.14 M/ L 4.63-6.08 L (test code = 761) HEMOGLOBIN (BEAKER) (test code = 9.9 GM/DL 13.7-17.5 L 410) HEMATOCRIT (BEAKER) (test code = 30.6 % 40.1-51.0 L 411) MEAN CORPUSCULAR VOLUME (BEAKER) 97.5 fL 79.0-92.2 H (test code = 753) MEAN CORPUSCULAR HEMOGLOBIN 31.5 pg 25.7-32.2 (BEAKER) (test code = 751) MEAN CORPUSCULAR HEMOGLOBIN CONC 32.4 GM/DL 32.3-36.5 (BEAKER) (test code = 752) RED CELL DISTRIBUTION WIDTH 14.6 % 11.6-14.4 H (BEAKER) (test code = 412) PLATELET COUNT (BEAKER) (test 360 K/CU MM 150-450 code = 756) MEAN PLATELET VOLUME (BEAKER) 9.7 fL 9.4-12.4 (test code = 754) NUCLEATED RED BLOOD CELLS 0 /100 WBC 0-0 (BEAKER) (test code = 413) NEUTROPHILS RELATIVE PERCENT 70 % (BEAKER) (test code = 429) LYMPHOCYTES RELATIVE PERCENT 18 % (BEAKER) (test code = 430) MONOCYTES RELATIVE PERCENT 8 % (BEAKER) (test code = 431) EOSINOPHILS RELATIVE PERCENT 1 % (BEAKER) (test code = 432) BASOPHILS RELATIVE PERCENT 0 % (BEAKER) (test code = 437) NEUTROPHILS ABSOLUTE COUNT 9.44 K/ L 1.78-5.38 H (BEAKER) (test code = 670) LYMPHOCYTES ABSOLUTE COUNT 2.42 K/ L 1.32-3.57 (BEAKER) (test code = 414) MONOCYTES ABSOLUTE COUNT (BEAKER) 1.14 K/ L 0.30-0.82 H (test code = 415) EOSINOPHILS ABSOLUTE COUNT 0.18 K/ L 0.04-0.54 (BEAKER) (test code = 416) BASOPHILS ABSOLUTE COUNT (BEAKER) 0.06 K/ L 0.01-0.08 (test code = 417) IMMATURE GRANULOCYTES-RELATIVE 2 % 0-1 H PERCENT (BEAKER) (test code = 2801) POCT-GLUCOSE [id number] 12:39:59 Test Item Value Reference Range Interpretation Comments POC-GLUCOSE METER 162 mg/dL 70-110 H : TESTED A T [facility] 67[address] (BEAKER) (test code = [place], 1538) [address]: Room Attendant/Techni stephanie ID = [id number] for Miya Novak COMPLEMENT COMPONENT [id number] 02:37:30 Test Item Value Reference Range Interpretation Comments C3 COMPLEMENT (BEAKER) (test code = 161 mg/dL 82-193 393) Room Attendant ID - KEVIN LCOMPLEMENT COMPONENT [id number] 02:37:29 Test Item Value Reference Range Interpretation Comments C4 COMPLEMENT (BEAKER) (test code = 42 mg/dL 15-57 394) Room Attendant ID - KEVIN LHEPATIC FUNCTION [id number] 02:19:10 Test Item Value Reference Range Interpretation Comments TOTAL PROTEIN (BEAKER) 6.5 gm/dL 6.0-8.3 Speci men slightly (test code = 770) hemolyzed ALBUMIN (BEAKER) (test 3.0 g/dL 3.5-5.0 L Speci men slightly code = 1145) hemolyzed BILIRUBIN TOTAL 0.5 mg/dL 0.2-1.2 Specimen sli ghtly (BEAKER) (test code = hemoly zed 377) BILIRUBIN DIRECT 0.2 mg/dL 0.1-0.5 Specimen sl ightly (BEAKER) (test code = hemoly zed 706) ALKALINE PHOSPHATASE 153 U/L 40-150 H (BEAKER) (test code = 346) AST (SGOT) (BEAKER) 33 U/L 5-34 Specimen slightly (test code = 353) hemolyzed ALT (SGPT) (BEAKER) 37 U/L 6-55 Specimen slightly (test code = 347) hemolyzed Room Attendant REID CHERY [id number] 02:19:09 Test Item Value Reference Range Interpretation Comments PHOSPHORUS (BEAKER) 4.2 mg/dL 2.3-4.7 Specimen slightly (test code = 604) hemolyzed Room Attendant ID Doug CHERY WCOMPREHENSIVE METABOLIC [id number] 02:19:09 Test Item Value Reference Range Interpretation Comments TOTAL PROTEIN 6.5 gm/dL 6.0-8.3 Specimen sligh tly (BEAKER) (test code = hemoly zed 770) ALBUMIN (BEAKER) 3.0 g/dL 3.5-5.0 L Specimen sl ightly (test code = 1145) hemolyzed ALKALINE PHOSPHATASE 153 U/L 40-150 H (BEAKER) (test code = 346) BILIRUBIN TOTAL 0.5 mg/dL 0.2-1.2 Specimen sli ghtly (BEAKER) (test code = hemoly zed 377) SODIUM (BEAKER) (test 131 meq/L 136-145 L code = 381) POTASSIUM (BEAKER) 4.9 meq/L 3.5-5.1 Specimen slightly (test code = 379) hemolyzed CHLORIDE (BEAKER) 102 meq/L 98-107 (test code = 382) CO2 (BEAKER) (test 22 meq/L 22-29 code = 355) BLOOD UREA NITROGEN 32 mg/dL 7-21 H (BEAKER) (test code = 354) CREATININE (BEAKER) 2.11 mg/dL 0.57-1.25 H Specimen slightly (test code = 358) hemolyzed GLUCOSE RANDOM 155 mg/dL 70-105 H (BEAKER) (test code = 652) CALCIUM (BEAKER) 8.5 mg/dL 8.4-10.2 (test code = 697) AST (SGOT) (BEAKER) 33 U/L 5-34 Specimen slightly (test code = 353) hemolyzed ALT (SGPT) (BEAKER) 37 U/L 6-55 Specimen slightly (test code = 347) hemolyzed EGFR (BEAKER) (test 32 mL/min/1.73 ESTIMA LIVAN GFR IS code = 1092) sq m NOT ACCURATE CREATININE CLEARANCE IN PREDICTING GLOMERULAR FILTRATION RATE . ESTIMATED GFR I S NOT APPLICABLE FOR DIALYSIS PATIEN TS. Room Attendant ID - MIRI [id number] 02:19:08 Test Item Value Reference Range Interpretation Comments MAGNESIUM (BEAKER) 2.4 mg/dL 1.6-2.6 Specimen slightly (test code = 627) hemolyzed Room Attendant ID - MIRI WOperator ID - MIRI WB-TYPE NATRIURETIC FACTOR (BNP) 2021-11-04 02:15:07 Test Item Value Reference Range Interpretation Comments B-TYPE NATRIURETIC PEPTIDE (BEAKER) 716 pg/mL 0-100 H (test code = 700) Room Attendant ID - MIRI [id number] 02:14:06 Test Item Value Reference Range Interpretation Comments PARTIAL THROMBOPLASTIN TIME 93.0 seconds 22.5-36.0 H (BEAKER) (test code = 760) CBC W/PLT COUNT & AUTO [id number] 01:48:04 Test Item Value Reference Range Interpretation Comments WHITE BLOOD CELL COUNT (BEAKER) 11.9 K/ L 3.5-10.5 H (test code = 775) RED BLOOD CELL COUNT (BEAKER) 2.73 M/ L 4.63-6.08 L (test code = 761) HEMOGLOBIN (BEAKER) (test code = 8.6 GM/DL 13.7-17.5 L 410) HEMATOCRIT (BEAKER) (test code = 25.6 % 40.1-51.0 L 411) MEAN CORPUSCULAR VOLUME (BEAKER) 93.8 fL 79.0-92.2 H (test code = 753) MEAN CORPUSCULAR HEMOGLOBIN 31.5 pg 25.7-32.2 (BEAKER) (test code = 751) MEAN CORPUSCULAR HEMOGLOBIN CONC 33.6 GM/DL 32.3-36.5 (BEAKER) (test code = 752) RED CELL DISTRIBUTION WIDTH 14.6 % 11.6-14.4 H (BEAKER) (test code = 412) PLATELET COUNT (BEAKER) (test 426 K/CU MM 150-450 code = 756) MEAN PLATELET VOLUME (BEAKER) 9.9 fL 9.4-12.4 (test code = 754) NUCLEATED RED BLOOD CELLS 0 /100 WBC 0-0 (BEAKER) (test code = 413) NEUTROPHILS RELATIVE PERCENT 58 % (BEAKER) (test code = 429) LYMPHOCYTES RELATIVE PERCENT 28 % (BEAKER) (test code = 430) MONOCYTES RELATIVE PERCENT 10 % (BEAKER) (test code = 431) EOSINOPHILS RELATIVE PERCENT 2 % (BEAKER) (test code = 432) BASOPHILS RELATIVE PERCENT 0 % (BEAKER) (test code = 437) NEUTROPHILS ABSOLUTE COUNT 6.91 K/ L 1.78-5.38 H (BEAKER) (test code = 670) LYMPHOCYTES ABSOLUTE COUNT 3.30 K/ L 1.32-3.57 (BEAKER) (test code = 414) MONOCYTES ABSOLUTE COUNT (BEAKER) 1.21 K/ L 0.30-0.82 H (test code = 415) EOSINOPHILS ABSOLUTE COUNT 0.22 K/ L 0.04-0.54 (BEAKER) (test code = 416) BASOPHILS ABSOLUTE COUNT (BEAKER) 0.04 K/ L 0.01-0.08 (test code = 417) IMMATURE GRANULOCYTES-RELATIVE 2 % 0-1 H PERCENT (BEAKER) (test code = 2801) CALCIUM, [id number] 01:47:44 Test Item Value Reference Range Interpretation Comments CALCIUM IONIZED (BEAKER) (test 1.14 mmol/L 1.12-1.27 code = 698) PH, BLOOD (BEAKER) (test code = 7.38 1810) SARS-COV2/RT-PCR ([facility])2021-11-03 22:37:22 Test Item Value Reference Range Interpretation Comments SARS-COV2/RT-PCR (test Negative Not Detected, Negative, code = 8237363) See external report for linked test SARS-COV-2 PERFORMING LAB [facility] (test code = 6030044) Negative result for this test determines that SARS-CoV-2 RNA was not present in the specimen above the Limit of Detection (LOD). However, Negative results do not preclude SARS-CoV-2 infection and should not be used as the sole basis for treatment or patient management decisions. Negative results mustbe combined with clinical observations, patient history, and epidemiological information. A false negative result may occur if a specimen is improperly collected, transported or handled. A false negative result should be considered if patient's recent exposures or clinical presentation indicate that COVID-19 (SARS-CoV-2) is likely and diagnostic tests for other causes of illness are negative. Re-testing should be considered in cases of suspected false negatives.The limit of detection for this assay is 800 copies/mL.This SARS CoV-2 test is a real-time RT-PCR test intended for the qualitative detection of nucleic acid from SARS-CoV-2 in a nasopharyngeal swab specimen collected from individuals susp ected of COVID-19 by their healthcare provider.This test has not been Food and Drug Administration (FDA) cleared or approved. This is a modified version of an approved Emergency Use Authorization (EUA) and is in the process of review by the FDA. Once authorized by the FDA, the issued EUA will be effective until the declaration that circumstances exist justifying the authorization of the emergency use of in vitro diagnostic tests for detection and/or diagnosis of COVID-19 is terminated under Section 564(b)(2) of the Act or the EUA is revoked under Section 564(g) of the Act.Fact Sheet for Healthcare Providers:https://www.[employer]/sites/default/files/product/documents/Fact_Shee q_WR_Qepwodhtq_Lozy_MAMO-AuY-0.pdfFact Sheet for Healthcare Patients:https://www.[employer]/sites/default/files/product/ documents/Fyrz_Tlttt_Ugtgrchs_Bvou_CAMS-OoB-3.pdfPerforming Laboratory:[facility], [place] [address]ODDI-KCMPREI METER 2021-11-03 22:19:00 Test Item Value Reference Range Interpretation Comments POC-GLUCOSE METER 224 mg/dL 70-110 H : TESTED A T [facility] [address] (REILLY) (test code = GIO M[facility], 1538) [address]: Room Attendant/Techni stephanie ID = [id number] for [place] POCT-GLUCOSE [id number] 17:40:44 Test Item Value Reference Range Interpretation Comments POC-GLUCOSE METER 197 mg/dL 70-110 H : TESTED A T [facility] [address] (BEAKER) (test code = [facility] Bhaskar [facility], 1538) [address]: Room Attendant/Techni stephanie ID = [id number] for OR PASQUALE ISAAC [id number] 16:48:48 Test Item Value Reference Range Interpretation Comments PARTIAL THROMBOPLASTIN TIME 49.1 seconds 22.5-36.0 H (BEAKER) (test code = 760) POCT-GLUCOSE [id number] 12:34:02 Test Item Value Reference Range Interpretation Comments POC-GLUCOSE METER 166 mg/dL 70-110 H : TESTED A T [facility] [address] (BEAKER) (test code = [facility] Bhaskar [facility], 1538) [address]: Room Attendant/Techni stephanie ID = [id number] for OR PASQUALE ISAAC [id number] 09:53:04 Test Item Value Reference Range Interpretation Comments PARTIAL THROMBOPLASTIN TIME 60.2 seconds 22.5-36.0 H (BEAKER) (test code = 760) POCT-GLUCOSE [id number] 08:10:48 Test Item Value Reference Range Interpretation Comments POC-GLUCOSE METER 110 mg/dL 70-110 : TESTED A T [facility] 6720 (BEAKER) (test code = [facility], 1538) 15227: Room Attendant/Techni stephanie ID = [id number] for OR PASQUALE ISAAC COMPREHENSIVE METABOLIC [id number] 07:02:32 Test Item Value Reference Range Interpretation Comments TOTAL PROTEIN 6.0 gm/dL 6.0-8.3 (BEAKER) (test code = 770) ALBUMIN (BEAKER) 2.9 g/dL 3.5-5.0 L (test code = 1145) ALKALINE PHOSPHATASE 141 U/L 40-150 (BEAKER) (test code = 346) BILIRUBIN TOTAL 0.5 mg/dL 0.2-1.2 (BEAKER) (test code = 377) SODIUM (BEAKER) (test 133 meq/L 136-145 L code = 381) POTASSIUM (BEAKER) 4.5 meq/L 3.5-5.1 (test code = 379) CHLORIDE (BEAKER) 102 meq/L 98-107 (test code = 382) CO2 (BEAKER) (test 24 meq/L 22-29 code = 355) BLOOD UREA NITROGEN 39 mg/dL 7-21 H (BEAKER) (test code = 354) CREATININE (BEAKER) 2.34 mg/dL 0.57-1.25 H (test code = 358) GLUCOSE RANDOM 137 mg/dL 70-105 H (BEAKER) (test code = 652) CALCIUM (BEAKER) 8.5 mg/dL 8.4-10.2 (test code = 697) AST (SGOT) (BEAKER) 28 U/L 5-34 (test code = 353) ALT (SGPT) (BEAKER) 36 U/L 6-55 (test code = 347) EGFR (BEAKER) (test 28 mL/min/1.73 ESTIMA LIVAN GFR IS code = 1092) sq m NOT ACCURATE CREATININE CLEARANCE IN PREDICTING GLOMERULAR FILTRATION RATE . ESTIMATED GFR I S NOT APPLICABLE FOR DIALYSIS PATIEN TS. Room Attendant ID - PONCHOALESHA LCREATINE KINASE (CK)2021-11-03 06:51:39 Test Item Value Reference Range Interpretation Comments CREATINE KINASE TOTAL (BEAKER) (test 64 U/L 29-200 code = 380) Room Attendant ID - KEVIN LHEPATIC FUNCTION [id number] 06:51:38 Test Item Value Reference Range Interpretation Comments TOTAL PROTEIN (BEAKER) (test code = 6.0 gm/dL 6.0-8.3 770) ALBUMIN (BEAKER) (test code = 1145) 2.9 g/dL 3.5-5.0 L BILIRUBIN TOTAL (BEAKER) (test code 0.5 mg/dL 0.2-1.2 = 377) BILIRUBIN DIRECT (BEAKER) (test 0.3 mg/dL 0.1-0.5 code = 706) ALKALINE PHOSPHATASE (BEAKER) (test 141 U/L 40-150 code = 346) AST (SGOT) (BEAKER) (test code = 28 U/L 5-34 353) ALT (SGPT) (BEAKER) (test code = 36 U/L 6-55 347) Room Attendant ID - KEVIN [id number] 06:51:37 Test Item Value Reference Range Interpretation Comments MAGNESIUM (BEAKER) (test code = 2.4 mg/dL 1.6-2.6 627) Room Attendant ID - KEVIN [id number] 06:51:37 Test Item Value Reference Range Interpretation Comments PHOSPHORUS (BEAKER) (test code = 4.3 mg/dL 2.3-4.7 604) Room Attendant ID - KEVIN LCALCIUM, [id number] 06:42:48 Test Item Value Reference Range Interpretation Comments CALCIUM IONIZED (BEAKER) (test 1.15 mmol/L 1.12-1.27 code = 698) PH, BLOOD (BEAKER) (test code = 7.37 1810) TSH/FREE T4 IF [id number] 06:22:05 Test Item Value Reference Range Interpretation Comments THYROID STIMULATING HORMONE 1.658 uIU/mL 0.350-4.940 (BEAKER) (test code = 772) Room Attendant ID - KEVIN LCBC W/PLT COUNT & AUTO [id number] 06:13:56 Test Item Value Reference Range Interpretation Comments WHITE BLOOD CELL COUNT (BEAKER) 11.0 K/ L 3.5-10.5 H (test code = 775) RED BLOOD CELL COUNT (BEAKER) 2.64 M/ L 4.63-6.08 L (test code = 761) HEMOGLOBIN (BEAKER) (test code = 8.2 GM/DL 13.7-17.5 L 410) HEMATOCRIT (BEAKER) (test code = 24.6 % 40.1-51.0 L 411) MEAN CORPUSCULAR VOLUME (BEAKER) 93.2 fL 79.0-92.2 H (test code = 753) MEAN CORPUSCULAR HEMOGLOBIN 31.1 pg 25.7-32.2 (BEAKER) (test code = 751) MEAN CORPUSCULAR HEMOGLOBIN CONC 33.3 GM/DL 32.3-36.5 (BEAKER) (test code = 752) RED CELL DISTRIBUTION WIDTH 14.5 % 11.6-14.4 H (BEAKER) (test code = 412) PLATELET COUNT (BEAKER) (test 366 K/CU MM 150-450 code = 756) MEAN PLATELET VOLUME (BEAKER) 10.4 fL 9.4-12.4 (test code = 754) NUCLEATED RED BLOOD CELLS 0 /100 WBC 0-0 (BEAKER) (test code = 413) NEUTROPHILS RELATIVE PERCENT 56 % (BEAKER) (test code = 429) LYMPHOCYTES RELATIVE PERCENT 29 % (BEAKER) (test code = 430) MONOCYTES RELATIVE PERCENT 11 % (BEAKER) (test code = 431) EOSINOPHILS RELATIVE PERCENT 2 % (BEAKER) (test code = 432) BASOPHILS RELATIVE PERCENT 1 % (BEAKER) (test code = 437) NEUTROPHILS ABSOLUTE COUNT 6.14 K/ L 1.78-5.38 H (BEAKER) (test code = 670) LYMPHOCYTES ABSOLUTE COUNT 3.16 K/ L 1.32-3.57 (BEAKER) (test code = 414) MONOCYTES ABSOLUTE COUNT (BEAKER) 1.26 K/ L 0.30-0.82 H (test code = 415) EOSINOPHILS ABSOLUTE COUNT 0.23 K/ L 0.04-0.54 (BEAKER) (test code = 416) BASOPHILS ABSOLUTE COUNT (BEAKER) 0.05 K/ L 0.01-0.08 (test code = 417) IMMATURE GRANULOCYTES-RELATIVE 2 % 0-1 H PERCENT (BEAKER) (test code = 2801) [id number] 02:50:03 Test Item Value Reference Range Interpretation Comments PARTIAL THROMBOPLASTIN TIME 71.2 seconds 22.5-36.0 H (BEAKER) (test code = 760) [id number] 00:41:37 Test Item Value Reference Range Interpretation Comments PARTIAL THROMBOPLASTIN TIME 117.4 seconds 22.5-36.0 H (BEAKER) (test code = 760) POCT-GLUCOSE [id number] 22:05:35 Test Item Value Reference Range Interpretation Comments POC-GLUCOSE METER 172 mg/dL 70-110 H : TESTED A T [facility] 6720 (BEAKER) (test code = [facility], 1538) 51147: Room Attendant/Techni stephanie ID = [id number] for Do , Maryam EOSINOPHIL SMEAR, [id number] 21:14:52 Test Item Value Reference Range Interpretation Comments EOSINOPHIL SMEAR, URINE (BEAKER) No EOS seen No EOS seen (test code = 1851) PROTEIN, RANDOM [id number] 20:22:45 Test Item Value Reference Range Interpretation Comments PROTEIN, URINE (BEAKER) (test code = < mg/dL 0-14 1569) Room Attendant ID - BSSODIUM, RANDOM [id number] 20:22:25 Test Item Value Reference Range Interpretation Comments SODIUM URINE (BEAKER) (test code = 36 meq/L 243) Reference Range: No NormalsOperator ID - BSCREATININE, RANDOM [id number] 20:22:24 Test Item Value Reference Range Interpretation Comments CREATININE URINE (BEAKER) (test 70.6 mg/dL code = 375) Reference Range: No NormalsOperator ID - BSURINALYSIS W/ [id number] 20:14:57 Test Item Value Reference Range Interpretation Comments COLOR (BEAKER) (test code = 470) Light Yellow CLARITY (BEAKER) (test code = Clear 469) SPECIFIC GRAVITY UA (BEAKER) 1.023 1.001-1.035 (test code = 468) PH UA (BEAKER) (test code = 467) 6.5 5.0-8.0 PROTEIN UA (BEAKER) (test code = Negative Negative 464) GLUCOSE UA (BEAKER) (test code = >1000 mg/dL Negative A 365) KETONES UA (BEAKER) (test code = Negative Negative 371) BILIRUBIN UA (BEAKER) (test code Negative Negative = 462) BLOOD UA (BEAKER) (test code = Negative Negative 461) NITRITE UA (BEAKER) (test code = Negative Negative 465) LEUKOCYTE ESTERASE UA (BEAKER) Negative Negative (test code = 466) UROBILINOGEN UA (BEAKER) (test 0.2 mg/dL 0.2-1.0 code = 463) RBC UA (BEAKER) (test code = < /HPF 519) WBC UA (BEAKER) (test code = 1 /HPF 520) BACTERIA (BEAKER) (test code = None Seen 517) CRYSTALS, URINE (BEAKER) (test None Seen code = 1521) SOURCE(BEAKER) (test code = 2795) Room Attendant ID - [auto]Room Attendant ID - [id number] 17:57:04 Test Item Value Reference Range Interpretation Comments PARTIAL THROMBOPLASTIN TIME 77.2 seconds 22.5-36.0 H (BEAKER) (test code = 760) POCT-GLUCOSE [id number] 17:09:08 Test Item Value Reference Range Interpretation Comments POC-GLUCOSE METER 265 mg/dL 70-110 H : TESTED A T [facility] 6720 (BEAKER) (test code = [facility] [place], 1538) 04395: Room Attendant/Techni stephanie ID = [id number] for OR PASQUALE ISAAC [id number] 16:31:40 Test Item Value Reference Range Interpretation Comments PARTIAL THROMBOPLASTIN TIME 113.2 seconds 22.5-36.0 H (BEAKER) (test code = 760) [id number] 14:30:56 Test Item Value Reference Range Interpretation Comments PARTIAL THROMBOPLASTIN TIME > seconds 22.5-36.0 HH (BEAKER) (test code = 760) [id number] 12:55:43 Test Item Value Reference Range Interpretation Comments PARTIAL THROMBOPLASTIN TIME 197.1 seconds 22.5-36.0 HH (BEAKER) (test code = 760) POCT-GLUCOSE [id number] 11:28:04 Test Item Value Reference Range Interpretation Comments POC-GLUCOSE METER 252 mg/dL 70-110 H : TESTED A T [facility] 6720 (BEAKER) (test code = [facility], 1538) 84524: Room Attendant/Techni stephanie ID = [id number] for OR PASQUALE ISAAC POCT-GLUCOSE [id number] 08:08:01 Test Item Value Reference Range Interpretation Comments POC-GLUCOSE METER 227 mg/dL 70-110 H : TESTED A T [facility] 6720 (BEAKER) (test code = [facility], 1538) 75171: Room Attendant/Techni stephanie ID = [id number] for OR PASQUALE ISAAC BASIC METABOLIC [id number] 02:27:25 Test Item Value Reference Range Interpretation Comments SODIUM (BEAKER) 132 meq/L 136-145 L (test code = 381) POTASSIUM (BEAKER) 4.7 meq/L 3.5-5.1 (test code = 379) CHLORIDE (BEAKER) 97 meq/L 98-107 L (test code = 382) CO2 (BEAKER) (test 25 meq/L 22-29 code = 355) BLOOD UREA NITROGEN 41 mg/dL 7-21 H (BEAKER) (test code = 354) CREATININE (BEAKER) 2.87 mg/dL 0.57-1.25 H (test code = 358) GLUCOSE RANDOM 292 mg/dL 70-105 H (BEAKER) (test code = 652) CALCIUM (BEAKER) 9.1 mg/dL 8.4-10.2 (test code = 697) EGFR (BEAKER) (test 23 mL/min/1.73 ESTIMA LIVAN GFR IS code = 1092) sq m NOT ACCURATE CREATININE CLEARANCE IN PREDICTING GLOMERULAR FILTRATION RATE . ESTIMATED GFR I S NOT APPLICABLE FOR DIALYSIS PATIEN TS. Room Attendant ID Doug CHERY [id number] 02:24:34 Test Item Value Reference Range Interpretation Comments MAGNESIUM (BEAKER) (test code = 2.5 mg/dL 1.6-2.6 627) Room Attendant ID Doug CHERY WHEPATIC FUNCTION [id number] 02:24:34 Test Item Value Reference Range Interpretation Comments TOTAL PROTEIN (BEAKER) (test code = 7.0 gm/dL 6.0-8.3 770) ALBUMIN (BEAKER) (test code = 1145) 3.3 g/dL 3.5-5.0 L BILIRUBIN TOTAL (BEAKER) (test code 0.7 mg/dL 0.2-1.2 = 377) BILIRUBIN DIRECT (BEAKER) (test 0.3 mg/dL 0.1-0.5 code = 706) ALKALINE PHOSPHATASE (BEAKER) (test 162 U/L 40-150 H code = 346) AST (SGOT) (BEAKER) (test code = 24 U/L 5-34 353) ALT (SGPT) (BEAKER) (test code = 49 U/L 6-55 347) Room Attendant ID Doug CHERY [id number] 02:19:29 Test Item Value Reference Range Interpretation Comments PARTIAL THROMBOPLASTIN TIME 32.2 seconds 22.5-36.0 (BEAKER) (test code = 760) CBC (HEMOGRAM ONLY)2021-11-02 02:04:48 Test Item Value Reference Range Interpretation Comments WHITE BLOOD CELL COUNT (BEAKER) 10.5 K/ L 3.5-10.5 (test code = 775) RED BLOOD CELL COUNT (BEAKER) 3.02 M/ L 4.63-6.08 L (test code = 761) HEMOGLOBIN (BEAKER) (test code = 9.4 GM/DL 13.7-17.5 L 410) HEMATOCRIT (BEAKER) (test code = 28.4 % 40.1-51.0 L 411) MEAN CORPUSCULAR VOLUME (BEAKER) 94.0 fL 79.0-92.2 H (test code = 753) MEAN CORPUSCULAR HEMOGLOBIN 31.1 pg 25.7-32.2 (BEAKER) (test code = 751) MEAN CORPUSCULAR HEMOGLOBIN CONC 33.1 GM/DL 32.3-36.5 (BEAKER) (test code = 752) RED CELL DISTRIBUTION WIDTH 14.2 % 11.6-14.4 (BEAKER) (test code = 412) PLATELET COUNT (BEAKER) (test 311 K/CU MM 150-450 code = 756) MEAN PLATELET VOLUME (BEAKER) 10.6 fL 9.4-12.4 (test code = 754) NUCLEATED RED BLOOD CELLS 0 /100 WBC 0-0 (BEAKER) (test code = 413) POCT-GLUCOSE [id number] 21:27:07 Test Item Value Reference Range Interpretation Comments POC-GLUCOSE METER 238 mg/dL 70-110 H : TESTED A T [facility] 6720 (BEAKER) (test code = [facility], 1538) 19633: Room Attendant/Techni stephanie ID = [id number] for KARY VALLE SE POCT-GLUCOSE [id number] 18:44:48 Test Item Value Reference Range Interpretation Comments POC-GLUCOSE METER 319 mg/dL 70-110 H : TESTED A T [facility] 6720 (BEAKER) (test code = [facility], 1538) 38471: Room Attendant/Techni stephanie ID = [id number] for Charisma Costa RAD, CHEST, 2 [id number] 15:35:00Reason for exam:->verify sternotomy wires present for [facility] : 1960 Sex: MFINAL REPORT CLINICAL HISTORY: verify sternotomy wires present for MRI TECHNIQUE: 2 views of the chest COMPARISON: 10/30/2021 IMPRESSION: There are no focal infiltrates or effusions. The cardiomediastinal silhouette is unchanged poststernotomy. Signed: Yvette Bingham MDReportVerified Date/Time: 11/01/2021 15:35:11 Reading Location: [facility] Radiology Reading Room POCT-GLUCOSE METER 2021-11-01 13:04:17 Test Item Value Reference Range Interpretation Comments POC-GLUCOSE METER 292 mg/dL 70-110 H : TESTED A T [facility] 6720 (BEAKER) (test code = [facility], 1538) 72564: Room Attendant/Techni stephanie ID = [id number] for Charisma Costa POCT-GLUCOSE [id number] 08:18:27 Test Item Value Reference Range Interpretation Comments POC-GLUCOSE METER 198 mg/dL 70-110 H : TESTED A T [facility] 6720 (BEAKER) (test code = [facility], 1538) 54198: Room Attendant/Techni stephanie ID = [id number] for Ch carlita, Charisma BASIC METABOLIC [id number] 05:31:31 Test Item Value Reference Range Interpretation Comments SODIUM (BEAKER) 129 meq/L 136-145 L (test code = 381) POTASSIUM (BEAKER) 4.3 meq/L 3.5-5.1 (test code = 379) CHLORIDE (BEAKER) 97 meq/L 98-107 L (test code = 382) CO2 (BEAKER) (test 23 meq/L 22-29 code = 355) BLOOD UREA NITROGEN 38 mg/dL 7-21 H (BEAKER) (test code = 354) CREATININE (BEAKER) 2.39 mg/dL 0.57-1.25 H (test code = 358) GLUCOSE RANDOM 251 mg/dL 70-105 H (BEAKER) (test code = 652) CALCIUM (BEAKER) 8.8 mg/dL 8.4-10.2 (test code = 697) EGFR (BEAKER) (test 28 mL/min/1.73 ESTIMA LIVAN GFR IS code = 1092) sq m NOT ACCURATE CREATININE CLEARANCE IN PREDICTING GLOMERULAR FILTRATION RATE . ESTIMATED GFR I S NOT APPLICABLE FOR DIALYSIS PATIEN TS. Room Attendant ID - PANTERA MHEPATIC FUNCTION [id number] 05:30:02 Test Item Value Reference Range Interpretation Comments TOTAL PROTEIN (BEAKER) (test code = 6.6 gm/dL 6.0-8.3 770) ALBUMIN (BEAKER) (test code = 1145) 3.2 g/dL 3.5-5.0 L BILIRUBIN TOTAL (BEAKER) (test code 0.9 mg/dL 0.2-1.2 = 377) BILIRUBIN DIRECT (BEAKER) (test 0.4 mg/dL 0.1-0.5 code = 706) ALKALINE PHOSPHATASE (BEAKER) (test 156 U/L 40-150 H code = 346) AST (SGOT) (BEAKER) (test code = 19 U/L 5-34 353) ALT (SGPT) (BEAKER) (test code = 50 U/L 6-55 347) Room Attendant ID - PANTERA [id number] 05:30:01 Test Item Value Reference Range Interpretation Comments MAGNESIUM (BEAKER) (test code = 2.4 mg/dL 1.6-2.6 627) Room Attendant ID - PANTERA MB-TYPE NATRIURETIC FACTOR (BNP)2021-11-01 05:23:48 Test Item Value Reference Range Interpretation Comments B-TYPE NATRIURETIC PEPTIDE (BEAKER) 278 pg/mL 0-100 H (test code = 700) Room Attendant ID - PANTERA MCBC (HEMOGRAM ONLY)2021-11-01 04:52:51 Test Item Value Reference Range Interpretation Comments WHITE BLOOD CELL COUNT (BEAKER) 12.5 K/ L 3.5-10.5 H (test code = 775) RED BLOOD CELL COUNT (BEAKER) 2.93 M/ L 4.63-6.08 L (test code = 761) HEMOGLOBIN (BEAKER) (test code = 9.1 GM/DL 13.7-17.5 L 410) HEMATOCRIT (BEAKER) (test code = 28.6 % 40.1-51.0 L 411) MEAN CORPUSCULAR VOLUME (BEAKER) 97.6 fL 79.0-92.2 H (test code = 753) MEAN CORPUSCULAR HEMOGLOBIN 31.1 pg 25.7-32.2 (BEAKER) (test code = 751) MEAN CORPUSCULAR HEMOGLOBIN CONC 31.8 GM/DL 32.3-36.5 L (BEAKER) (test code = 752) RED CELL DISTRIBUTION WIDTH 14.4 % 11.6-14.4 (BEAKER) (test code = 412) PLATELET COUNT (BEAKER) (test 253 K/CU MM 150-450 code = 756) MEAN PLATELET VOLUME (BEAKER) 10.5 fL 9.4-12.4 (test code = 754) NUCLEATED RED BLOOD CELLS 0 /100 WBC 0-0 (BEAKER) (test code = 413) POCT-GLUCOSE [id number] 21:15:33 Test Item Value Reference Range Interpretation Comments POC-GLUCOSE METER 277 mg/dL 70-110 H : TESTED A T [facility] 6720 (BEAKER) (test code = [facility], [facility]8) 24575: Room Attendant/Techni stephanie ID = [id number] for Alondra carter Renee POCT-GLUCOSE [id number] 18:04:18 Test Item Value Reference Range Interpretation Comments POC-GLUCOSE METER 274 mg/dL 70-110 H : TESTED A T [facility] 6720 (BEAKER) (test code = [facility], [facility]) 49806: Room Attendant/Techni stephanie ID = [id number] for Ch eung, Charisma POCT-GLUCOSE [id number] 12:23:30 Test Item Value Reference Range Interpretation Comments POC-GLUCOSE METER 260 mg/dL 70-110 H : TESTED A T [facility] 6720 (BEAKER) (test code = [facility], 1538) 37529: Room Attendant/Techni stephanie ID = [id number] for Ch eung, Charisma POCT-GLUCOSE [id number] 08:12:43 Test Item Value Reference Range Interpretation Comments POC-GLUCOSE METER 227 mg/dL 70-110 H : TESTED A T [facility] 6720 (BEAKER) (test code = [facility], [facility]) 90538: Room Attendant/Techni stephanie ID = [id number] for Ch eung, Charisma [id number] 06:02:20 Test Item Value Reference Range Interpretation Comments MAGNESIUM (BEAKER) (test code = 2.3 mg/dL 1.6-2.6 627) Room Attendant ID Doug CHERY WHEPATIC FUNCTION [id number] 06:02:20 Test Item Value Reference Range Interpretation Comments TOTAL PROTEIN (BEAKER) (test code = 6.4 gm/dL 6.0-8.3 770) ALBUMIN (BEAKER) (test code = 1145) 3.2 g/dL 3.5-5.0 L BILIRUBIN TOTAL (BEAKER) (test code 0.8 mg/dL 0.2-1.2 = 377) BILIRUBIN DIRECT (BEAKER) (test 0.4 mg/dL 0.1-0.5 code = 706) ALKALINE PHOSPHATASE (BEAKER) (test 156 U/L 40-150 H code = 346) AST (SGOT) (BEAKER) (test code = 23 U/L 5-34 353) ALT (SGPT) (BEAKER) (test code = 68 U/L 6-55 H 347) Room Attendant ID - MIRI WBASIC METABOLIC [id number] 06:02:19 Test Item Value Reference Range Interpretation Comments SODIUM (BEAKER) 132 meq/L 136-145 L (test code = 381) POTASSIUM (BEAKER) 4.3 meq/L 3.5-5.1 (test code = 379) CHLORIDE (BEAKER) 98 meq/L 98-107 (test code = 382) CO2 (BEAKER) (test 27 meq/L 22-29 code = 355) BLOOD UREA NITROGEN 37 mg/dL 7-21 H (BEAKER) (test code = 354) CREATININE (BEAKER) 2.15 mg/dL 0.57-1.25 H (test code = 358) GLUCOSE RANDOM 250 mg/dL 70-105 H (BEAKER) (test code = 652) CALCIUM (BEAKER) 8.9 mg/dL 8.4-10.2 (test code = 697) EGFR (BEAKER) (test 31 mL/min/1.73 ESTIMA LIVAN GFR IS code = 1092) sq m NOT ACCURATE CREATININE CLEARANCE IN PREDICTING GLOMERULAR FILTRATION RATE . ESTIMATED GFR I S NOT APPLICABLE FOR DIALYSIS PATIEN TS. Room Attendant ID Doug CHERY WCBC (HEMOGRAM ONLY)2021-10-31 05:00:27 Test Item Value Reference Range Interpretation Comments WHITE BLOOD CELL COUNT (BEAKER) 11.6 K/ L 3.5-10.5 H (test code = 775) RED BLOOD CELL COUNT (BEAKER) 3.08 M/ L 4.63-6.08 L (test code = 761) HEMOGLOBIN (BEAKER) (test code = 9.6 GM/DL 13.7-17.5 L 410) HEMATOCRIT (BEAKER) (test code = 30.4 % 40.1-51.0 L 411) MEAN CORPUSCULAR VOLUME (BEAKER) 98.7 fL 79.0-92.2 H (test code = 753) MEAN CORPUSCULAR HEMOGLOBIN 31.2 pg 25.7-32.2 (BEAKER) (test code = 751) MEAN CORPUSCULAR HEMOGLOBIN CONC 31.6 GM/DL 32.3-36.5 L (BEAKER) (test code = 752) RED CELL DISTRIBUTION WIDTH 14.5 % 11.6-14.4 H (BEAKER) (test code = 412) PLATELET COUNT (BEAKER) (test 258 K/CU MM 150-450 code = 756) MEAN PLATELET VOLUME (BEAKER) 10.3 fL 9.4-12.4 (test code = 754) NUCLEATED RED BLOOD CELLS 0 /100 WBC 0-0 (BEAKER) (test code = 413) POCT-GLUCOSE [id number] 21:38:54 Test Item Value Reference Range Interpretation Comments POC-GLUCOSE METER 263 mg/dL 70-110 H : TESTED A T [facility] 6720 (BEAKER) (test code [facility], = 1538) 86755: Room Attendant/Techni stephanie ID = [id number] for SALVADOR IN (V), SHELBIE POCT-GLUCOSE [id number] 17:38:42 Test Item Value Reference Range Interpretation Comments POC-GLUCOSE METER 237 mg/dL 70-110 H : TESTED A T [facility] 6720 (BEAKER) (test code = [facility], 1538) 93436: Room Attendant/Techni stephanie ID = [id number] for OR DIANA ISAACIS POCT-GLUCOSE [id number] 12:14:16 Test Item Value Reference Range Interpretation Comments POC-GLUCOSE METER 309 mg/dL 70-110 H : TESTED A T [facility] 6720 (BEAKER) (test code = [facility], 1538) 96523: Room Attendant/Techni stephanie ID = [id number] for OR PASQUALE ISAAC POCT-GLUCOSE [id number] 07:36:38 Test Item Value Reference Range Interpretation Comments POC-GLUCOSE METER 248 mg/dL 70-110 H : TESTED A T [facility] 6720 (BEAKER) (test code = [facility], 1538) 70849: Room Attendant/Techni stephanie ID = [id number] for OR PHEY, PASQUALE RAD, CHEST, 1 VIEW, NON [id number] 06:53:00Reason for exam:->Pulmonary edemaShould this be performed at the bedside?->Yes [facility] : 1960 Sex: MFINAL REPORT RAD, CHEST, 1 VIEW, NON DEPT INDICATION: Pulmonary edema COMPARISON: Prior day's exam FINDINGS: Portable frontal view of the chest. IMPRESSION: Support Lines: Sternotomy wires Lungs and pleura: Lungs are predominantly clear. Mild basilar atelectasis. No significant pneumothorax. Heart and mediastinum: Stable contours. Additional findings: None. Signed: Carol Shirley Verified Date/Time: 10/30/2021 06:53:05 BASIC METABOLIC [id number] 05:56:24 Test Item Value Reference Range Interpretation Comments SODIUM (BEAKER) 133 meq/L 136-145 L (test code = 381) POTASSIUM (BEAKER) 4.7 meq/L 3.5-5.1 (test code = 379) CHLORIDE (BEAKER) 97 meq/L 98-107 L (test code = 382) CO2 (BEAKER) (test 27 meq/L 22-29 code = 355) BLOOD UREA NITROGEN 40 mg/dL 7-21 H (BEAKER) (test code = 354) CREATININE (BEAKER) 2.23 mg/dL 0.57-1.25 H (test code = 358) GLUCOSE RANDOM 283 mg/dL 70-105 H (BEAKER) (test code = 652) CALCIUM (BEAKER) 9.0 mg/dL 8.4-10.2 (test code = 697) EGFR (BEAKER) (test 30 mL/min/1.73 ESTIMA LIVAN GFR IS code = 1092) sq m NOT ACCURATE CREATININE CLEARANCE IN PREDICTING GLOMERULAR FILTRATION RATE . ESTIMATED GFR I S NOT APPLICABLE FOR DIALYSIS PATIEN TS. Room Attendant ID Doug BROWN [id number] 05:56:24 Test Item Value Reference Range Interpretation Comments MAGNESIUM (BEAKER) (test code = 2.2 mg/dL 1.6-2.6 627) Room Attendant REID BROWN LHEPATIC FUNCTION [id number] 05:56:24 Test Item Value Reference Range Interpretation Comments TOTAL PROTEIN (BEAKER) (test code = 6.4 gm/dL 6.0-8.3 770) ALBUMIN (BEAKER) (test code = 1145) 3.2 g/dL 3.5-5.0 L BILIRUBIN TOTAL (BEAKER) (test code 0.9 mg/dL 0.2-1.2 = 377) BILIRUBIN DIRECT (BEAKER) (test 0.4 mg/dL 0.1-0.5 code = 706) ALKALINE PHOSPHATASE (BEAKER) (test 161 U/L 40-150 H code = 346) AST (SGOT) (BEAKER) (test code = 29 U/L 5-34 353) ALT (SGPT) (BEAKER) (test code = 89 U/L 6-55 H 347) Room Attendant REID BROWN LCBC (HEMOGRAM ONLY)2021-10-30 05:18:23 Test Item Value Reference Range Interpretation Comments WHITE BLOOD CELL COUNT (BEAKER) 11.9 K/ L 3.5-10.5 H (test code = 775) RED BLOOD CELL COUNT (BEAKER) 3.15 M/ L 4.63-6.08 L (test code = 761) HEMOGLOBIN (BEAKER) (test code = 9.8 GM/DL 13.7-17.5 L 410) HEMATOCRIT (BEAKER) (test code = 30.2 % 40.1-51.0 L 411) MEAN CORPUSCULAR VOLUME (BEAKER) 95.9 fL 79.0-92.2 H (test code = 753) MEAN CORPUSCULAR HEMOGLOBIN 31.1 pg 25.7-32.2 (BEAKER) (test code = 751) MEAN CORPUSCULAR HEMOGLOBIN CONC 32.5 GM/DL 32.3-36.5 (BEAKER) (test code = 752) RED CELL DISTRIBUTION WIDTH 14.1 % 11.6-14.4 (BEAKER) (test code = 412) PLATELET COUNT (BEAKER) (test 222 K/CU MM 150-450 code = 756) MEAN PLATELET VOLUME (BEAKER) 10.3 fL 9.4-12.4 (test code = 754) NUCLEATED RED BLOOD CELLS 0 /100 WBC 0-0 (BEAKER) (test code = 413) OXYGEN SATURATION, [id number] 05:10:19 Test Item Value Reference Range Interpretation Comments O2 SATURATION (MEASURED) (BEAKER) 51.4 % (test code = 1455) POCT-GLUCOSE [id number] 21:17:21 Test Item Value Reference Range Interpretation Comments POC-GLUCOSE METER 247 mg/dL 70-110 H : TESTED A T [facility] 6720 (BEAKER) (test code = [place], 1538) [address]: Room Attendant/Techni stephanie ID = [id number] for Jackie Brown BASIC METABOLIC [id number] 19:39:22 Test Item Value Reference Range Interpretation Comments SODIUM (BEAKER) 132 meq/L 136-145 L (test code = 381) POTASSIUM (BEAKER) 4.4 meq/L 3.5-5.1 (test code = 379) CHLORIDE (BEAKER) 96 meq/L 98-107 L (test code = 382) CO2 (BEAKER) (test 22 meq/L 22-29 code = 355) BLOOD UREA NITROGEN 41 mg/dL 7-21 H (BEAKER) (test code = 354) CREATININE (BEAKER) 2.23 mg/dL 0.57-1.25 H (test code = 358) GLUCOSE RANDOM 310 mg/dL 70-105 H (BEAKER) (test code = 652) CALCIUM (BEAKER) 9.2 mg/dL 8.4-10.2 (test code = 697) EGFR (BEAKER) (test 30 mL/min/1.73 ESTIMA LIVAN GFR IS code = 1092) sq m NOT ACCURATE CREATININE CLEARANCE IN PREDICTING GLOMERULAR FILTRATION RATE . ESTIMATED GFR I S NOT APPLICABLE FOR DIALYSIS PATIEN TS. Room Attendant ID - [id number] 19:39:22 Test Item Value Reference Range Interpretation Comments MAGNESIUM (BEAKER) (test code = 2.2 mg/dL 1.6-2.6 627) Room Attendant ID - DBPOCT-GLUCOSE [id number] 17:17:12 Test Item Value Reference Range Interpretation Comments POC-GLUCOSE METER 240 mg/dL 70-110 H : TESTED A T [facility] 6720 (BEAKER) (test code = [facility], 1538) 31330: Room Attendant/Techni stephanie ID = [id number] for OR PHEY, PASQUALE POCT-GLUCOSE [id number] 12:43:45 Test Item Value Reference Range Interpretation Comments POC-GLUCOSE METER 288 mg/dL 70-110 H : TESTED A T [facility] 6720 (BEAKER) (test code = [facility], 1538) 67575: Room Attendant/Techni stephanie ID = [id number] for OR PHEY, PASQUALE POCT-GLUCOSE [id number] 08:37:19 Test Item Value Reference Range Interpretation Comments POC-GLUCOSE METER 285 mg/dL 70-110 H : TESTED A T [facility] 6720 (BEAKER) (test code = [facility], 1538) 77043: Room Attendant/Techni stephanie ID = [id number] for OR PHEY, PASQUALE RAD, CHEST, 1 VIEW, NON [id number] 07:17:00Reason for exam:->Pulmonary edemaShould this be performed at the bedside?->Yes [facility] 1960 Sex: MFINAL REPORT RAD, CHEST, 1 VIEW, NON DEPT INDICATION: Pulmonary edema COMPARISON: 11/05/2021 FINDINGS: Portable frontal view of the chest. IMPRESSION: Support Lines: Sternotomy wires Lungs and pleura: Lungs are predominantly clear. Mild basilar atelectasis. No significant pneumothorax. Heart and mediastinum: Stable contours. Additional findings: None. Signed: Carol Ramirez MDReport Verified Date/Time: 10/29/2021 07:17:53 -GLUCOSE [id number] 07:04:20 Test Item Value Reference Range Interpretation Comments POC-GLUCOSE METER 266 mg/dL 70-110 H : TESTED A T [facility] 6720 (BEAKER) (test code = [facility], 1538) 60518: Room Attendant/Techni stephanie ID = [id number] for ARISTIDES LAM [id number] 04:58:10 Test Item Value Reference Range Interpretation Comments MAGNESIUM (BEAKER) (test code = 2.1 mg/dL 1.6-2.6 627) Room Attendant ID - PANTERA MHEPATIC FUNCTION [id number] 04:58:10 Test Item Value Reference Range Interpretation Comments TOTAL PROTEIN (BEAKER) (test code = 5.9 gm/dL 6.0-8.3 L 770) ALBUMIN (BEAKER) (test code = 1145) 3.0 g/dL 3.5-5.0 L BILIRUBIN TOTAL (BEAKER) (test code 0.6 mg/dL 0.2-1.2 = 377) BILIRUBIN DIRECT (BEAKER) (test 0.3 mg/dL 0.1-0.5 code = 706) ALKALINE PHOSPHATASE (BEAKER) (test 151 U/L 40-150 H code = 346) AST (SGOT) (BEAKER) (test code = 24 U/L 5-34 353) ALT (SGPT) (BEAKER) (test code = 109 U/L 6-55 H 347) Room Attendant REID Camacho PANTERA MBASIC METABOLIC [id number] 04:58:09 Test Item Value Reference Range Interpretation Comments SODIUM (BEAKER) 133 meq/L 136-145 L (test code = 381) POTASSIUM (BEAKER) 4.7 meq/L 3.5-5.1 (test code = 379) CHLORIDE (BEAKER) 97 meq/L 98-107 L (test code = 382) CO2 (BEAKER) (test 28 meq/L 22-29 code = 355) BLOOD UREA NITROGEN 37 mg/dL 7-21 H (BEAKER) (test code = 354) CREATININE (BEAKER) 1.99 mg/dL 0.57-1.25 H (test code = 358) GLUCOSE RANDOM 313 mg/dL 70-105 H (BEAKER) (test code = 652) CALCIUM (BEAKER) 9.2 mg/dL 8.4-10.2 (test code = 697) EGFR (BEAKER) (test 34 mL/min/1.73 ESTIMA LIVAN GFR IS code = 1092) sq m NOT ACCURATE CREATININE CLEARANCE IN PREDICTING GLOMERULAR FILTRATION RATE . ESTIMATED GFR I S NOT APPLICABLE FOR DIALYSIS PATIEN TS. Room Attendant REID MOTT MLACTIC ACID, [id number] 04:41:40 Test Item Value Reference Range Interpretation Comments LACTATE BLOOD ARTERIAL (2) 2.1 mmol/L 0.5-2.2 (BEAKER) (test code = 2874) Room Attendant REID MOTT MCBC (HEMOGRAM ONLY)2021-10-29 04:35:40 Test Item Value Reference Range Interpretation Comments WHITE BLOOD CELL COUNT (BEAKER) 13.3 K/ L 3.5-10.5 H (test code = 775) RED BLOOD CELL COUNT (BEAKER) 2.92 M/ L 4.63-6.08 L (test code = 761) HEMOGLOBIN (BEAKER) (test code = 9.1 GM/DL 13.7-17.5 L 410) HEMATOCRIT (BEAKER) (test code = 27.8 % 40.1-51.0 L 411) MEAN CORPUSCULAR VOLUME (BEAKER) 95.2 fL 79.0-92.2 H (test code = 753) MEAN CORPUSCULAR HEMOGLOBIN 31.2 pg 25.7-32.2 (BEAKER) (test code = 751) MEAN CORPUSCULAR HEMOGLOBIN CONC 32.7 GM/DL 32.3-36.5 (BEAKER) (test code = 752) RED CELL DISTRIBUTION WIDTH 13.6 % 11.6-14.4 (BEAKER) (test code = 412) PLATELET COUNT (BEAKER) (test 194 K/CU MM 150-450 code = 756) MEAN PLATELET VOLUME (BEAKER) 10.3 fL 9.4-12.4 (test code = 754) NUCLEATED RED BLOOD CELLS 0 /100 WBC 0-0 (BEAKER) (test code = 413) OXYGEN SATURATION, [id number] 04:32:40 Test Item Value Reference Range Interpretation Comments O2 SATURATION (MEASURED) (BEAKER) 56.3 % (test code = 1455) POCT-GLUCOSE [id number] 00:20:02 Test Item Value Reference Range Interpretation Comments POC-GLUCOSE METER 288 mg/dL 70-110 H : [facility] ([facility] (test code = [facility] [place], 1538) 094[address]: Room Attendant/Techni stephanie ID = [id number] for Re yes, Sairy [id number] 23:26:24 Test Item Value Reference Range Interpretation Comments MAGNESIUM (BEAKER) (test code = 2.1 mg/dL 1.6-2.6 627) Room Attendant ID - DBBASIC METABOLIC [id number] 23:26:23 Test Item Value Reference Range Interpretation Comments SODIUM (BEAKER) 130 meq/L 136-145 L (test code = 381) POTASSIUM (BEAKER) 4.9 meq/L 3.5-5.1 (test code = 379) CHLORIDE (BEAKER) 96 meq/L 98-107 L (test code = 382) CO2 (BEAKER) (test 24 meq/L 22-29 code = 355) BLOOD UREA NITROGEN 37 mg/dL 7-21 H (BEAKER) (test code = 354) CREATININE (BEAKER) 2.05 mg/dL 0.57-1.25 H (test code = 358) GLUCOSE RANDOM 306 mg/dL 70-105 H (BEAKER) (test code = 652) CALCIUM (BEAKER) 9.6 mg/dL 8.4-10.2 (test code = 697) EGFR (BEAKER) (test 33 mL/min/1.73 ESTIMA LIVAN GFR IS code = 1092) sq m NOT ACCURATE CREATININE CLEARANCE IN PREDICTING GLOMERULAR FILTRATION RATE . ESTIMATED GFR I S NOT APPLICABLE FOR DIALYSIS PATIEN TS. Room Attendant ID - DBBASIC METABOLIC [id number] 11:41:42 Test Item Value Reference Range Interpretation Comments SODIUM (BEAKER) 133 meq/L 136-145 L (test code = 381) POTASSIUM (BEAKER) 5.0 meq/L 3.5-5.1 (test code = 379) CHLORIDE (BEAKER) 98 meq/L 98-107 (test code = 382) CO2 (BEAKER) (test 27 meq/L 22-29 code = 355) BLOOD UREA NITROGEN 31 mg/dL 7-21 H (BEAKER) (test code = 354) CREATININE (BEAKER) 1.52 mg/dL 0.57-1.25 H (test code = 358) GLUCOSE RANDOM 248 mg/dL 70-105 H (BEAKER) (test code = 652) CALCIUM (BEAKER) 9.6 mg/dL 8.4-10.2 (test code = 697) EGFR (BEAKER) (test 47 mL/min/1.73 ESTIMA LIVAN GFR IS code = 1092) sq m NOT ACCURATE CREATININE CLEARANCE IN PREDICTING GLOMERULAR FILTRATION RATE . ESTIMATED GFR I S NOT APPLICABLE FOR DIALYSIS PATIEN TS. Room Attendant ID - KEVIN LURINALYSIS [id number] 11:31:18 Test Item Value Reference Range Interpretation Comments RBC UA (BEAKER) (test code = 519) 6 /HPF WBC UA (BEAKER) (test code = 520) 4 /HPF BACTERIA (BEAKER) (test code = 517) Rare SQUAMOUS EPITHELIAL (BEAKER) (test < /HPF code = 516) CRYSTALS, URINE (BEAKER) (test code None Seen = 1521) Room Attendant ID - techURINALYSIS WITH MICROSCOPIC IF [id number] 11:31:12 Test Item Value Reference Range Interpretation Comments COLOR (BEAKER) (test code = 470) Light Yellow CLARITY (BEAKER) (test code = Clear 469) SPECIFIC GRAVITY UA (BEAKER) 1.007 1.001-1.035 (test code = 468) PH UA (BEAKER) (test code = 467) 6.0 5.0-8.0 PROTEIN UA (BEAKER) (test code = Negative Negative 464) GLUCOSE UA (BEAKER) (test code = Negative Negative 365) KETONES UA (BEAKER) (test code = Negative Negative 371) BILIRUBIN UA (BEAKER) (test code Negative Negative = 462) BLOOD UA (BEAKER) (test code = Small Negative A 461) NITRITE UA (BEAKER) (test code = Negative Negative 465) LEUKOCYTE ESTERASE UA (BEAKER) Small Negative A (test code = 466) UROBILINOGEN UA (BEAKER) (test 0.2 mg/dL 0.2-1.0 code = 463) SOURCE(BEAKER) (test code = 2795) Room Attendant ID - [auto]Room Attendant ID - techPOCT-GLUCOSE [id number] 10:34:32 Test Item Value Reference Range Interpretation Comments POC-GLUCOSE METER 259 mg/dL 70-110 H : TESTED A T [facility] 6720 (BEAKER) (test code = [facility] [place], 1538) 99906: Room Attendant/Techni stephanie ID = [id number] for SA KRYSTLE BARNETT RAD, CHEST, 1 VIEW, NON [id number] 08:00:00Reason for exam:->Pulmonary edemaShould this be performed at the bedside?->Yes [facility] 1960 Sex: MFINAL REPORT TECHNIQUE: Frontal view of the chest. INDICATION: Pulmonaryedema COMPARISON: 10/27/2021. FINDINGS: LINES/TUBES: Right IJ pulmonary arterial catheter terminatesover the right pulmonary artery.. LUNGS: Persistent but decreased linear opacities and basilar atelectasis are not significantly changed. HEART AND MEDIASTINUM: The cardiomediastinal silhouette is stable status post median sternotomy. Some of the sternotomy wires are fractured, unchanged.. SOFT TISSUES AND BONES: Unremarkable. IMPRESSION:Persistent trace bilateral pleural effusions with basilar atelectasis. Signed: Jhon Rocha Verified Date/Time: 10/28/2021 08:00:20 Reading Location: [facility] Radiology Reading Room POCT-GLUCOSE [id number] 07:27:58 Test Item Value Reference Range Interpretation Comments POC-GLUCOSE METER 127 mg/dL 70-110 H : TESTED A T [facility] 6720 (BEAKER) (test code = [facility], 1538) 94024: Room Attendant/Techni stephanie ID = [id number] for BE RNABE, ARISTIDES POCT-GLUCOSE [id number] 05:31:35 Test Item Value Reference Range Interpretation Comments POC-GLUCOSE METER 138 mg/dL 70-110 H : TESTED A T [facility] 6720 (BEAKER) (test code = [facility], 1538) 98508: Room Attendant/Techni stephanie ID = [id number] for JABIER ESCOBARA POCT-GLUCOSE [id number] 05:31:33 Test Item Value Reference Range Interpretation Comments POC-GLUCOSE METER 141 mg/dL 70-110 H : TESTED A T [facility] 6720 (BEAKER) (test code = [facility], 1538) 85251: Room Attendant/Techni stephanie ID = [id number] for CALVIN MUNIZ [id number] 04:26:54 Test Item Value Reference Range Interpretation Comments MAGNESIUM (BEAKER) (test code = 2.1 mg/dL 1.6-2.6 627) Room Attendant ID - DBHEPATIC FUNCTION [id number] 04:26:54 Test Item Value Reference Range Interpretation Comments TOTAL PROTEIN (BEAKER) (test code = 6.0 gm/dL 6.0-8.3 770) ALBUMIN (BEAKER) (test code = 1145) 3.1 g/dL 3.5-5.0 L BILIRUBIN TOTAL (BEAKER) (test code 0.7 mg/dL 0.2-1.2 = 377) BILIRUBIN DIRECT (BEAKER) (test 0.3 mg/dL 0.1-0.5 code = 706) ALKALINE PHOSPHATASE (BEAKER) (test 138 U/L 40-150 code = 346) AST (SGOT) (BEAKER) (test code = 36 U/L 5-34 H 353) ALT (SGPT) (BEAKER) (test code = 148 U/L 6-55 H 347) Room Attendant ID - DBBASIC METABOLIC [id number] 04:26:53 Test Item Value Reference Range Interpretation Comments SODIUM (BEAKER) 135 meq/L 136-145 L (test code = 381) POTASSIUM (BEAKER) 4.4 meq/L 3.5-5.1 (test code = 379) CHLORIDE (BEAKER) 102 meq/L 98-107 (test code = 382) CO2 (BEAKER) (test 25 meq/L 22-29 code = 355) BLOOD UREA NITROGEN 32 mg/dL 7-21 H (BEAKER) (test code = 354) CREATININE (BEAKER) 1.43 mg/dL 0.57-1.25 H (test code = 358) GLUCOSE RANDOM 133 mg/dL 70-105 H (BEAKER) (test code = 652) CALCIUM (BEAKER) 9.4 mg/dL 8.4-10.2 (test code = 697) EGFR (BEAKER) (test 50 mL/min/1.73 ESTIMA LIVAN GFR IS code = 1092) sq m NOT ACCURATE CREATININE CLEARANCE IN PREDICTING GLOMERULAR FILTRATION RATE . ESTIMATED GFR I S NOT APPLICABLE FOR DIALYSIS PATIEN TS. Room Attendant ID - DBLACTIC ACID, [id number] 04:15:41 Test Item Value Reference Range Interpretation Comments LACTATE BLOOD 1.1 mmol/L 0.5-2.2 Specimen sligh tly ARTERIAL (2) (BEAKER) hemoly zed (test code = 2874) Room Attendant ID - DBCBC (HEMOGRAM ONLY)2021-10-28 04:09:40 Test Item Value Reference Range Interpretation Comments WHITE BLOOD CELL COUNT (BEAKER) 12.9 K/ L 3.5-10.5 H (test code = 775) RED BLOOD CELL COUNT (BEAKER) 2.85 M/ L 4.63-6.08 L (test code = 761) HEMOGLOBIN (BEAKER) (test code = 9.0 GM/DL 13.7-17.5 L 410) HEMATOCRIT (BEAKER) (test code = 26.3 % 40.1-51.0 L 411) MEAN CORPUSCULAR VOLUME (BEAKER) 92.3 fL 79.0-92.2 H (test code = 753) MEAN CORPUSCULAR HEMOGLOBIN 31.6 pg 25.7-32.2 (BEAKER) (test code = 751) MEAN CORPUSCULAR HEMOGLOBIN CONC 34.2 GM/DL 32.3-36.5 (BEAKER) (test code = 752) RED CELL DISTRIBUTION WIDTH 13.2 % 11.6-14.4 (BEAKER) (test code = 412) PLATELET COUNT (BEAKER) (test 203 K/CU MM 150-450 code = 756) MEAN PLATELET VOLUME (BEAKER) 10.3 fL 9.4-12.4 (test code = 754) NUCLEATED RED BLOOD CELLS 0 /100 WBC 0-0 (BEAKER) (test code = 413) BLOOD GAS, [id number] 04:03:54 Test Item Value Reference Range Interpretation Comments PH ARTERIAL (BEAKER) (test code = 7.46 7.35-7.45 H 383) PCO2 ARTERIAL (BEAKER) (test code 40 mm Hg 35-45 = 384) PO2 ARTERIAL (BEAKER) (test code = 132 mm Hg 80-90 H 385) O2 SATURATION ARTERIAL (BEAKER) 98.8 % 96.0-97.0 H (test code = 386) HCO3 ARTERIAL (BEAKER) (test code 27 mmol/L 21-29 = 388) BASE EXCESS ARTERIAL (BEAKER) 3.2 mmol/L -2.0-3.0 H (test code = 387) PATIENT TEMPERATURE (BEAKER) (test 37.0 code = 1818) FIO2 (BEAKER) (test code = 1819) 21.0 OXYGEN SATURATION, [id number] 04:02:16 Test Item Value Reference Range Interpretation Comments O2 SATURATION (MEASURED) (BEAKER) 77.5 % (test code = 1455) POCT-GLUCOSE [id number] 02:29:28 Test Item Value Reference Range Interpretation Comments POC-GLUCOSE METER 144 mg/dL 70-110 H : TESTED A T [facility] 6720 (BEAKER) (test code = [facility], 1538) 95693: Room Attendant/Techni stephnaie ID = [id number] for CALVIN MUNIZ POCT-GLUCOSE [id number] 01:50:48 Test Item Value Reference Range Interpretation Comments POC-GLUCOSE METER 158 mg/dL 70-110 H : TESTED A T [facility] 6720 (BEAKER) (test code = [facility], [facility]8) 87283: Room Attendant/Techni stephanie ID = [id number] for Pa rnell (pca2), Meikole POCT-GLUCOSE [id number] 23:47:40 Test Item Value Reference Range Interpretation Comments POC-GLUCOSE METER 229 mg/dL 70-110 H : TESTED A T [facility] 6720 (BEAKER) (test code = [facility], [facility]) 53283: Room Attendant/Techni stephanie ID = [id number] for Pa rnell (pca2), Meikole POCT-GLUCOSE [id number] 22:43:20 Test Item Value Reference Range Interpretation Comments POC-GLUCOSE METER 211 mg/dL 70-110 H : TESTED A T [facility] 6720 (BEAKER) (test code = [facility], [facility]) 55600: Room Attendant/Techni stephanie ID = [id number] for Pa rnell (pca2), Meikole BASIC METABOLIC [id number] 22:01:27 Test Item Value Reference Range Interpretation Comments SODIUM (BEAKER) 133 meq/L 136-145 L (test code = 381) POTASSIUM (BEAKER) 4.4 meq/L 3.5-5.1 (test code = 379) CHLORIDE (BEAKER) 99 meq/L 98-107 (test code = 382) CO2 (BEAKER) (test 24 meq/L 22-29 code = 355) BLOOD UREA NITROGEN 32 mg/dL 7-21 H (BEAKER) (test code = 354) CREATININE (BEAKER) 1.53 mg/dL 0.57-1.25 H (test code = 358) GLUCOSE RANDOM 237 mg/dL 70-105 H (BEAKER) (test code = 652) CALCIUM (BEAKER) 9.2 mg/dL 8.4-10.2 (test code = 697) EGFR (BEAKER) (test 47 mL/min/1.73 ESTIMA LIVAN GFR IS code = 1092) sq m NOT ACCURATE CREATININE CLEARANCE IN PREDICTING GLOMERULAR FILTRATION RATE . ESTIMATED GFR I S NOT APPLICABLE FOR DIALYSIS PATIEN TS. Room Attendant ID - DBPOCT-GLUCOSE [id number] 21:44:11 Test Item Value Reference Range Interpretation Comments POC-GLUCOSE METER 234 mg/dL 70-110 H : TESTED A T [facility] 6720 (BEAKER) (test code = [facility], 1538) 21033: Room Attendant/Techni stephanie ID = [id number] for JABIER ESCOBARA POCT-GLUCOSE [id number] 20:48:05 Test Item Value Reference Range Interpretation Comments POC-GLUCOSE METER 225 mg/dL 70-110 H : TESTED A T [facility] 6720 (BEAKER) (test code = [facility], 1538) 51628: Room Attendant/Techni stephanie ID = [id number] for Pa rnell (pca2), Meikole POCT-GLUCOSE [id number] 19:48:15 Test Item Value Reference Range Interpretation Comments POC-GLUCOSE METER 243 mg/dL 70-110 H : TESTED A T [facility] 6720 (BEAKER) (test code = [facility], 1538) 42282: Room Attendant/Techni stephanie ID = [id number] for Pa rnell (pca2), Meikole POCT-GLUCOSE [id number] 18:29:02 Test Item Value Reference Range Interpretation Comments POC-GLUCOSE METER 218 mg/dL 70-110 H : TESTED A T [facility] 6720 (BEAKER) (test code [facility], = 1538) 67143: Room Attendant/Techni stephanie ID = [id number] for RODDY NOSA, CHRISTIE POCT-GLUCOSE [id number] 18:17:30 Test Item Value Reference Range Interpretation Comments POC-GLUCOSE METER 213 mg/dL 70-110 H : TESTED A T [facility] 6720 (BEAKER) (test code [facility], = 1538) 34092: Room Attendant/Techni stephanie ID = [id number] for RODDY NOSA, CHRISTIE POCT-GLUCOSE [id number] 16:33:09 Test Item Value Reference Range Interpretation Comments POC-GLUCOSE METER 238 mg/dL 70-110 H : TESTED A T [facility] 6720 (BEAKER) (test code [facility], = 1538) 80292: Room Attendant/Techni stephanie ID = [id number] for RODDY NOSA, CHRISTIE ELISEO TITER AND [id number] 13:54:14 Test Item Value Reference Range Interpretation Comments ELISEO TITER (BEAKER) (test code = :40 1541) ELISEO PATTERN (BEAKER) (test code = Homogeneous 1781) ANTI-NUCLEAR ANTIBODY (ELISEO)2021-10-27 13:54:03 Test Item Value Reference Range Interpretation Comments ANTI-NUCLEAR ANTIBODY (ELISEO) (BEAKER) Positive Negative A (test code = 418) Test performed by IFA method.POCT-GLUCOSE [id number] 13:06:27 Test Item Value Reference Range Interpretation Comments POC-GLUCOSE METER 200 mg/dL 70-110 H : TESTED A T [facility] 6720 (BEAKER) (test code = [facility], 1538) 62789: Room Attendant/Techni stephanie ID = [id number] for Tori Min BASIC METABOLIC [id number] 12:53:59 Test Item Value Reference Range Interpretation Comments SODIUM (BEAKER) 133 meq/L 136-145 L (test code = 381) POTASSIUM (BEAKER) 4.9 meq/L 3.5-5.1 (test code = 379) CHLORIDE (BEAKER) 100 meq/L 98-107 (test code = 382) CO2 (BEAKER) (test 25 meq/L 22-29 code = 355) BLOOD UREA NITROGEN 31 mg/dL 7-21 H (BEAKER) (test code = 354) CREATININE (BEAKER) 1.45 mg/dL 0.57-1.25 H (test code = 358) GLUCOSE RANDOM 207 mg/dL 70-105 H (BEAKER) (test code = 652) CALCIUM (BEAKER) 8.9 mg/dL 8.4-10.2 (test code = 697) EGFR (BEAKER) (test 49 mL/min/1.73 ESTIMA LIVAN GFR IS code = 1092) sq m NOT ACCURATE CREATININE CLEARANCE IN PREDICTING GLOMERULAR FILTRATION RATE . ESTIMATED GFR I S NOT APPLICABLE FOR DIALYSIS PATIEN TS. Room Attendant ID - BSRAD, CHEST, 1 VIEW, NON [id number] 10:04:00Reason for exam:- >Pulmonary edemaShould this be performed at the bedside?->Yes [facility] 1960 Sex: MFINAL REPORT AP view of the chest dated 10/27/2021 COMPARISON: 2CLINICAL INFORMATION: Pulmonary edema Comment: Heart is normal in size. Pulmonary vasculature is unremarkable. Subsegmental atelectasis is seen in the right lower lobe but. The rest of the lungs are clear. 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 No pulmonary infiltrate or pleural effusion is present. [place] catheter and intra-aortic pump device remain place. Impression: Interval resolution of previously noted pulmonary edema. Signed: Jose Eduardo Garza Verified Date/Time: 10/27/2021 10:04:53 Reading Location: [facility] Radiology Reading Room [id number] 09:26:22 Test Item Value Reference Range Interpretation Comments FIBRINOGEN LEVEL (SAVAGEAKER) (test 451 mg/dl 225-434 H code = 658) [id number] 09:26:22 Test Item Value Reference Range Interpretation Comments PARTIAL THROMBOPLASTIN TIME 26.6 seconds 22.5-36.0 (BEAKER) (test code = 760) PROTHROMBIN [id number] 09:25:42 Test Item Value Reference Range Interpretation Comments PROTIME (BEAKER) 13.5 seconds 11.9-14.2 (test code = 759) INR (BEAKER) (test 1.05 See_Comment [Automat ed message] code = 370) The system [employer] generated this result transmitted ref erence range: <=5.90. The reference range was not used to int erpret this result as normal/abnormal . RECOMMENDED COUMADIN/WARFARIN INR THERAPY RANGESSTANDARD DOSE: 2.0 - 3.0 Includes: PROPHYLAXIS forvenous thrombosis, systemic embolization; TREATMENT for venous thrombosis and/or pulmonary embolus.HIGH RISK: Target INR is 2.5-3.5 for patients with mechanical heart valves.PLASMA FREE [id number] 08:02:57 Test Item Value Reference Range Interpretation Comments HEMOGLOBIN PLASMA (BEAKER) (test 30.0 mg/dl 0.0-30.0 code = 1054) LACTATE DEHYDROGENASE (LDH)2021-10-27 07:41:38 Test Item Value Reference Range Interpretation Comments LACTATE DEHYDROGENASE (BEAKER) (test 706 U/L 125-220 H code = 635) Room Attendant ID - BSCBC (HEMOGRAM ONLY)2021-10-27 07:41:16 Test Item Value Reference Range Interpretation Comments WHITE BLOOD CELL COUNT (BEAKER) 10.4 K/ L 3.5-10.5 (test code = 775) RED BLOOD CELL COUNT (BEAKER) 2.92 M/ L 4.63-6.08 L (test code = 761) HEMOGLOBIN (BEAKER) (test code = 9.0 GM/DL 13.7-17.5 L 410) HEMATOCRIT (BEAKER) (test code = 27.7 % 40.1-51.0 L 411) MEAN CORPUSCULAR VOLUME (BEAKER) 94.9 fL 79.0-92.2 H (test code = 753) MEAN CORPUSCULAR HEMOGLOBIN 30.8 pg 25.7-32.2 (BEAKER) (test code = 751) MEAN CORPUSCULAR HEMOGLOBIN CONC 32.5 GM/DL 32.3-36.5 (BEAKER) (test code = 752) RED CELL DISTRIBUTION WIDTH 13.0 % 11.6-14.4 (BEAKER) (test code = 412) PLATELET COUNT (BEAKER) (test 225 K/CU MM 150-450 code = 756) MEAN PLATELET VOLUME (BEAKER) 10.0 fL 9.4-12.4 (test code = 754) NUCLEATED RED BLOOD CELLS 0 /100 WBC 0-0 (BEAKER) (test code = 413) EBV ANTIBODY, [id number] 07:16:06 Test Item Value Reference Range Interpretation Comments MIKEY AGUILAR VIRAL CAPSID Positive Negative, Equivocal A ANTIGEN IGG (BEAKER) (test code = 3415) Mikey Aguilar Viral Capsid Antigen IgG Result Interpretation: </= 0.8 Al Negative 0.9-1.0 Al Equivocal >/= 1.1 Al PositiveEBV ANTIBODY, IGM 2021-10-27 07:16:06 Test Item Value Reference Range Interpretation Comments MIKEY AGUILAR VIRAL CAPSID Negative Negative, Equivocal ANTIGEN IGM (BEAKER) (test code = 3418) Mikey Aguilar Viral Capsid Antigen IgM Result Interpretation: </= 0.8 Al Negative 0.9-1.0 Al Equivocal >/= 1.1 Al PositiveCYTOMEGALOVIRUS ANTIBODY, [id number] 07:16:05 Test Item Value Reference Range Interpretation Comments CYTOMEGALOVIRUS, IGG (BEAKER) Negative Negative, Equivocal (test code = 3429) CMV IgG Result Interpretation: </= 0.8 Al Negative 0.9-1.0 Al Equivocal >/=1.1 Al PositivePOCT-GLUCOSE [id number] 06:44:33 Test Item Value Reference Range Interpretation Comments POC-GLUCOSE METER 159 mg/dL 70-110 H : TESTED A T [facility] 6720 (BEAKER) (test code = [place], 1538) [address]: Room Attendant/Techni stephanie ID = [id number] for SAW [facility] FUNCTION [id number] 05:21:03 Test Item Value Reference Range Interpretation Comments TOTAL PROTEIN (BEAKER) (test code = 5.4 gm/dL 6.0-8.3 L 770) ALBUMIN (BEAKER) (test code = 1145) 2.8 g/dL 3.5-5.0 L BILIRUBIN TOTAL (BEAKER) (test code 0.6 mg/dL 0.2-1.2 = 377) BILIRUBIN DIRECT (BEAKER) (test 0.3 mg/dL 0.1-0.5 code = 706) ALKALINE PHOSPHATASE (BEAKER) (test 115 U/L 40-150 code = 346) AST (SGOT) (BEAKER) (test code = 67 U/L 5-34 H 353) ALT (SGPT) (BEAKER) (test code = 209 U/L 6-55 H 347) Room Attendant ID - PANTERA MBASIC METABOLIC [id number] 05:21:02 Test Item Value Reference Range Interpretation Comments SODIUM (BEAKER) 134 meq/L 136-145 L (test code = 381) POTASSIUM (BEAKER) 3.7 meq/L 3.5-5.1 (test code = 379) CHLORIDE (BEAKER) 102 meq/L 98-107 (test code = 382) CO2 (BEAKER) (test 26 meq/L 22-29 code = 355) BLOOD UREA NITROGEN 31 mg/dL 7-21 H (BEAKER) (test code = 354) CREATININE (BEAKER) 1.43 mg/dL 0.57-1.25 H (test code = 358) GLUCOSE RANDOM 160 mg/dL 70-105 H (BEAKER) (test code = 652) CALCIUM (BEAKER) 8.1 mg/dL 8.4-10.2 L (test code = 697) EGFR (BEAKER) (test 50 mL/min/1.73 ESTIMA LIVAN GFR IS code = 1092) sq m NOT ACCURATE CREATININE CLEARANCE IN PREDICTING GLOMERULAR FILTRATION RATE . ESTIMATED GFR I S NOT APPLICABLE FOR DIALYSIS PATIEN TS. Room Attendant ID - PANTERA [id number] 05:21:02 Test Item Value Reference Range Interpretation Comments MAGNESIUM (BEAKER) (test code = 2.0 mg/dL 1.6-2.6 627) Room Attendant ID - PANTERA MLACTIC ACID, [id number] 04:58:45 Test Item Value Reference Range Interpretation Comments LACTATE BLOOD 1.2 mmol/L 0.5-2.2 Specimen moder ately ARTERIAL (2) (BEAKER) hemoly zed (test code = 2874) Room Attendant ID - BSSpecimen slightly lipemicPOCT-GLUCOSE [id number] 03:52:27 Test Item Value Reference Range Interpretation Comments POC-GLUCOSE METER 52 mg/dL 70-110 L : TESTED A T [facility] 6720 (BEAKER) (test code = [place], 1538) [address]: Room Attendant/Techni stephanie ID = [id number] for CARLOS ORTEZ POCT-GLUCOSE [id number] 02:11:20 Test Item Value Reference Range Interpretation Comments POC-GLUCOSE METER 112 mg/dL 70-110 H : TESTED A T [facility] 6720 (BEAKER) (test code = DEYSINM Bhaskar [facility], 1538) [address]: Room Attendant/Techni stephanie ID = [id number] for SAW ALCANTARA BASIC METABOLIC [id number] 21:02:54 Test Item Value Reference Range Interpretation Comments SODIUM (BEAKER) 134 meq/L 136-145 L (test code = 381) POTASSIUM (BEAKER) 4.4 meq/L 3.5-5.1 Specimen slightly (test code = 379) hemolyzed CHLORIDE (BEAKER) 99 meq/L 98-107 (test code = 382) CO2 (BEAKER) (test 28 meq/L 22-29 code = 355) BLOOD UREA NITROGEN 32 mg/dL 7-21 H (BEAKER) (test code = 354) CREATININE (BEAKER) 1.58 mg/dL 0.57-1.25 H Specimen slightly (test code = 358) hemolyzed GLUCOSE RANDOM 191 mg/dL 70-105 H (BEAKER) (test code = 652) CALCIUM (BEAKER) 8.9 mg/dL 8.4-10.2 (test code = 697) EGFR (BEAKER) (test 45 mL/min/1.73 ESTIMA LIVAN GFR IS code = 1092) sq m NOT ACCURATE CREATININE CLEARANCE IN PREDICTING GLOMERULAR FILTRATION RATE . ESTIMATED GFR I S NOT APPLICABLE FOR DIALYSIS PATIEN TS. Room Attendant ID - BSBLOOD GAS, [id number] 20:57:19 Test Item Value Reference Range Interpretation Comments PH ARTERIAL (BEAKER) (test code = 7.49 7.35-7.45 H 383) PCO2 ARTERIAL (BEAKER) (test code 39 mm Hg 35-45 = 384) PO2 ARTERIAL (BEAKER) (test code = 93 mm Hg 80-90 H 385) O2 SATURATION ARTERIAL (BEAKER) 97.5 % 96.0-97.0 H (test code = 386) HCO3 ARTERIAL (BEAKER) (test code 29 mmol/L 21-29 = 388) BASE EXCESS ARTERIAL (BEAKER) 5.6 mmol/L -2.0-3.0 H (test code = 387) PATIENT TEMPERATURE (BEAKER) (test 37.3 code = 1818) FIO2 (BEAKER) (test code = 1819) 21.0 OXYGEN SATURATION, [id number] 20:47:50 Test Item Value Reference Range Interpretation Comments O2 SATURATION (MEASURED) (BEAKER) 55.2 % (test code = 1455) LACTIC ACID, [id number] 20:46:31 Test Item Value Reference Range Interpretation Comments LACTATE BLOOD 1.5 mmol/L 0.5-2.2 Specimen sligh tly ARTERIAL (2) (BEAKER) hemoly zed (test code = 2874) Room Attendant ID - BSPOCT-GLUCOSE [id number] 18:41:27 Test Item Value Reference Range Interpretation Comments POC-GLUCOSE METER 174 mg/dL 70-110 H : TESTED A T [facility] 6720 (BEAKER) (test code = [place], 1538) [address]: Room Attendant/Techni stephanie ID = [id number] for UY , RANGEL [id number] 16:42:23 Test Item Value Reference Range Interpretation Comments MAGNESIUM (BEAKER) 2.0 mg/dL 1.6-2.6 Specimen moderately (test code = 627) hemolyzed Room Attendant ID - BSBASIC METABOLIC [id number] 16:42:23 Test Item Value Reference Range Interpretation Comments SODIUM (BEAKER) 134 meq/L 136-145 L (test code = 381) POTASSIUM (BEAKER) 4.7 meq/L 3.5-5.1 Specimen moderately (test code = 379) hemolyzed CHLORIDE (BEAKER) 100 meq/L 98-107 (test code = 382) CO2 (BEAKER) (test 27 meq/L 22-29 code = 355) BLOOD UREA NITROGEN 31 mg/dL 7-21 H (BEAKER) (test code = 354) CREATININE (BEAKER) 1.53 mg/dL 0.57-1.25 H Specimen moderately (test code = 358) hemolyzed GLUCOSE RANDOM 164 mg/dL 70-105 H (BEAKER) (test code = 652) CALCIUM (BEAKER) 8.5 mg/dL 8.4-10.2 (test code = 697) EGFR (BEAKER) (test 47 mL/min/1.73 ESTIMA LIVAN GFR IS code = 1092) sq m NOT ACCURATE CREATININE CLEARANCE IN PREDICTING GLOMERULAR FILTRATION RATE . ESTIMATED GFR I S NOT APPLICABLE FOR DIALYSIS PATIEN TS. Room Attendant ID - BSPOCT-GLUCOSE [id number] 16:29:32 Test Item Value Reference Range Interpretation Comments POC-GLUCOSE METER 168 mg/dL 70-110 H : TESTED A T [facility] 6720 ([employer]) (test code = [facility], 1538) [address]: Room Attendant/Techni stephanie ID = [id number] for UY , RANGEL POCT-GLUCOSE [id number] 15:48:56 Test Item Value Reference Range Interpretation Comments POC-GLUCOSE METER 149 mg/dL 70-110 H : TESTED A T [facility] 6720 ([employer]) (test code = [facility], 1538) [address]: Room Attendant/Techni stephanie ID = [id number] for UY , RANGEL VARICELLA ZOSTER ANTIBODY, [id number] 15:13:27 Test Item Value Reference Range Interpretation Comments VARICELLA ZOSTER IGG (AL) (AKER) 6.8 (test code = 3197) VARICELLA ZOSTER RESULT INTERPRETATIONS: <=0.8 Al Nonreactive: Presumed non-immune to VZV 0.9-1.0 Al Equivocal >=1.1 Al Reactive: Presumed immune to VZVHERPES VIRUS ANTIBODY, [id number] 15:12:09 Test Item Value Reference Range Interpretation Comments HERPES VIRUS IGG ([employer]) (test code Positive = 1807) HSV 1 IGG = POSITIVEHSV 2 IGG = NEGATIVECREATININE [id number] 14:38:44 Test Item Value Reference Range Interpretation Comments CREATININE CLEARANCE (Selectable MediaAKER) 61.2 mL/min 70.0-140.0 L (test code = 357) VOLUME, TOTAL (BEAKER) (test code 4450 ml = 1457) CREATININE URINE (Selectable MediaAKER) (test 42.3 mg/dL code = 375) Room Attendant ID - PANTERA MTOXOPLASMA GONDII ANTIBODY, [id number] 14:18:31 Test Item Value Reference Range Interpretation Comments TOXOPLASMA GONDII IGG QUANTITATIVE < IU/mL <10.0 ([facility]) (test code = 3428) Toxoplasma Gondii IgG Result Interpretation: </= 9.9 IU/mL Normal 10-11 IU/mL Equivocal >/= 12 IU/mL PositiveCT, CHEST, WITHOUT CONTRAST 2021-10-26 12:43:00Unlisted Reason for Exam - Click Yes and Enter Reason Below- >YesUnlisted Reason for Exam->Transplant/VAD Evaluation [facility] : 1960 Sex: MFINAL REPORT CT of the chest and abdomen, without contrast Clinical History: Unlisted Reason for ExamTransplant/VAD Evaluation Technique: CT of the chest and abdomen is performed without intravenous contrast administration. This exam was performed according to our departmental dose optimization program which includes automated exposure control, adjustment of the mA and/or kV according to patient's size and/or use of iterative reconstructive technique. Comparison Film: None Discussion: Visualized thyroid gland is normal. No supraclavicular, axillary, mediastinal or hilar lymphadenopathy. There is a right-sided [place]-Cheli catheter, and an Impella device. Heart is normalin size. No pericardial effusion. There is a small left effusion, and a moderate size right effusion, with relaxation atelectasis of the lower lobes. No mass or consolidation identified in the aerated portion of the lung. No liver lesion is identified on this noncontrast exam. No biliary ductal dilatation, gallbladder is normal. The spleen, pancreas, and adrenal glands are normal. Kidneys demonstrateno hydronephrosis, contour deforming lesion, or radiopaque stone. Visualized bowel is unremarkable, no evidence of obstruction. There is an IVC filter. No adenopathy. No ascites. There is mild anasarca. Bony structures demonstrate mild degenerative changes. Status post median sternotomy. Impression: Small left, moderate right pleural effusions. Mild anasarca. Signed: Anitha Parekh MDReport Verified Date/Time: 10/26/2021 12:43:09 Reading Location: [facility] B1 C013X Ortho Consult Reading Room CT, ABDOMEN, WITHOUT [id number] 12:43:00Unlisted Reason for Exam - Click Yes and Enter Reason Below->YesUnlisted Reason for Exam->Transplant/VAD EvaluationWill this procedure require oral contrast?->NoSUTTER [facility] : 1960 Sex: MFINAL REPORT CT of the chest and abdomen, without contrast Clinical History: Unlisted Reason for ExamTransplant/VAD Evaluation Technique: CT of the chest and abdomen is performed without intravenous contrast administration. This exam was performed according to our departmental dose optimization program which includes automated exposure control, adjustment of the mA and/or kV according to patient's size and/or use of iterative reconstructive technique. Comparison Film: None Discussion: Visualized thyroid gland is normal. No supraclavicular, axillary, mediastinal or hilar lymphadenopathy. There is a right-sided [place]-Cheli catheter, and an Impella device. Heart is normalin size. No pericardial effusion. There is a small left effusion, and a moderate size right effusion, with relaxation atelectasis of the lower lobes. No mass or consolidation identified in the aerated portion of the lung. No liver lesion is identified on this noncontrast exam. No biliary ductal dilatation, gallbladder is normal. The spleen, pancreas, and adrenal glands are normal. Kidneys demonstrateno hydronephrosis, contour deforming lesion, or radiopaque stone. Visualized bowel is unremarkable, no evidence of obstruction. There is an IVC filter. No adenopathy. No ascites. There is mild anasarca. Bony structures demonstrate mild degenerative changes. Status post median sternotomy. Impression: Small left, moderate right pleural effusions. Mild anasarca. Signed: Anitha Parekheport Verified Date/Time: 10/26/2021 12:43:09 Reading Location: [facility] C013X Ortho Consult Reading Room POCT-GLUCOSE [id number] 12:21:52 Test Item Value Reference Range Interpretation Comments POC-GLUCOSE METER 193 mg/dL 70-110 H : TESTED A T [facility] 6720 ([facility] (test code = [place], 1538) [address]: Room Attendant/Techni stephanie ID = [id number] for UY , RANGEL [id number] 12:05:12 Test Item Value Reference Range Interpretation Comments [facility] SCREEN ([facility]) (test code = Nonreactive Nonreactive 420) CT, BRAIN, WITHOUT [id number] 10:13:00Unlisted Reason for Exam - Click Yes and Enter Reason Below->YesUnlisted Reason for Exam->Transplant/VAD EvaluationSUTTER [facility]ADOR [facility]ITALName: [facility]CTOR : 1960 Sex: MFINAL REPORT CT, BRAIN, WITHOUT CONTRAST CLINICAL INDICATION: Unlisted Reason for ExamTransplant/VAD Evaluation COMPARISON: None TECHNIQUE: Noncontrast axial CT imaging ofthe brain and skull. DOSE REDUCTION: Dose modulation, iterative reconstruction, and/or weight-basedadjustment of the mA/kV was utilized to reduce the radiation dose to as low as reasonably achievable. FINDINGS:No intracranial hemorrhage, midline shift or mass effect. Midline structures are normallydeveloped. Scattered foci of hypoattenuation are present throughout the periventricular and subcortical white matter, and, although nonspecific by imaging, statistically represent mild chronic microvascular ischemic changes in this age group.No hydrocephalus. Orbits are within normal limits. No obstructive paranasal sinus disease. IMPRESSION: No acute intracranial findings If there is persistent clinical concern for intracranial pathology, MR examination is recommended for further characterization. Signed: Carol Ramirez MDReport Verified Date/Time: 10/26/2021 10:13:28 Reading Location: [facility] C013 Neuro Reading Room (CELLAVISION MANUAL DIFF)2021-10-26 09:55:44 Test Item Value Reference Range Interpretation Comments NEUTROPHILS - REL 75 % (CELLAVISION)(BEAKER) (test code = 2816) LYMPHOCYTES - REL 18 % (CELLAVISION)(BEAKER) (test code = 2817) MONOCYTES - REL 4 % (CELLAVISION)(BEAKER) (test code = 2818) EOSINOPHILS - REL 1 % (CELLAVISION)(BEAKER) (test code = 2819) METAMYELOCYTES - REL 1 % 0-0 H (CELLAVISION)(BEAKER) (test code = 2821) BANDS - REL (CELLAVISION)(BEAKER) 1 % 0-10 (test code = 2826) NEUTROPHILS - ABS 11.55 K/ul 1.78-5.38 H (CELLAVISION)(BEAKER) (test code = 2830) LYMPHOCYTES - ABS 2.77 K/ul 1.32-3.57 (CELLAVISION)(BEAKER) (test code = 2831) MONOCYTES - ABS 0.62 K/uL 0.30-0.82 (CELLAVISION)(BEAKER) (test code = 2832) EOSINOPHILS - ABS 0.15 K/uL 0.04-0.54 (CELLAVISION)(BEAKER) (test code = 2834) METAMYELOCYTES - ABS 0.15 K/uL 0.00-0.00 H (CELLAVISION)(BEAKER) (test code = 2836) BANDS - ABS (CELLAVISION)(BEAKER) 0.15 K/uL 0.00-0.80 (test code = 2840) TOTAL COUNTED (BEAKER) (test code 100 = 1351) MANUAL NRBC PER 100 CELLS (BEAKER) 1 /100 WBC 0-0 H (test code = 1353) PLT MORPHOLOGY (BEAKER) (test code Normal = 486) SMUDGE CELLS (BEAKER) (test code = Present 1371) POLYCHROMATOPHILLIC RBCS(BEAKER) 1+ few (test code = 478) SPHEROCYTES (BEAKER) (test code = 1+ few 768) TEAR DROP CELLS (BEAKER) (test 1+ few code = 481) ACANTHOCYTES (BEAKER) (test code = 1+ few 471) ARTIFACT (CELLAVISION)(BEAKER) Present (test code = 3432) PLATELET CONCENTRATION Adequate (CELLAVISION)(BEAKER) (test code = 3438) Room Attendant ID - Whitney Mccauley comments: Slide comments:CBC W/PLT COUNT & AUTO [id number] 09:55:43 Test Item Value Reference Range Interpretation Comments WHITE BLOOD CELL COUNT (BEAKER) 15.4 K/ L 3.5-10.5 H (test code = 775) RED BLOOD CELL COUNT (BEAKER) 3.02 M/ L 4.63-6.08 L (test code = 761) HEMOGLOBIN (BEAKER) (test code = 9.3 GM/DL 13.7-17.5 L 410) HEMATOCRIT (BEAKER) (test code = 28.4 % 40.1-51.0 L 411) MEAN CORPUSCULAR VOLUME (BEAKER) 94.0 fL 79.0-92.2 H (test code = 753) MEAN CORPUSCULAR HEMOGLOBIN 30.8 pg 25.7-32.2 (BEAKER) (test code = 751) MEAN CORPUSCULAR HEMOGLOBIN CONC 32.7 GM/DL 32.3-36.5 (BEAKER) (test code = 752) RED CELL DISTRIBUTION WIDTH 12.8 % 11.6-14.4 (BEAKER) (test code = 412) PLATELET COUNT (BEAKER) (test 266 K/CU MM 150-450 code = 756) MEAN PLATELET VOLUME (BEAKER) 10.2 fL 9.4-12.4 (test code = 754) NUCLEATED RED BLOOD CELLS 0 /100 WBC 0-0 (BEAKER) (test code = 413) BASIC METABOLIC [id number] 09:48:42 Test Item Value Reference Range Interpretation Comments SODIUM (BEAKER) 134 meq/L 136-145 L (test code = 381) POTASSIUM (BEAKER) 3.8 meq/L 3.5-5.1 (test code = 379) CHLORIDE (BEAKER) 101 meq/L 98-107 (test code = 382) CO2 (BEAKER) (test 26 meq/L 22-29 code = 355) BLOOD UREA NITROGEN 32 mg/dL 7-21 H (BEAKER) (test code = 354) CREATININE (BEAKER) 1.52 mg/dL 0.57-1.25 H (test code = 358) GLUCOSE RANDOM 180 mg/dL 70-105 H (BEAKER) (test code = 652) CALCIUM (BEAKER) 8.6 mg/dL 8.4-10.2 (test code = 697) EGFR (BEAKER) (test 47 mL/min/1.73 ESTIMA LIVAN GFR IS code = 1092) sq m NOT ACCURATE CREATININE CLEARANCE IN PREDICTING GLOMERULAR FILTRATION RATE . ESTIMATED GFR I S NOT APPLICABLE FOR DIALYSIS PATIEN TS. Room Attendant ID - PANTERA MPOCT-GLUCOSE [id number] 08:12:22 Test Item Value Reference Range Interpretation Comments POC-GLUCOSE METER 187 mg/dL 70-110 H : TESTED A T [facility] 6720 ([employer]) (test code = [place], 1538) [address]: Room Attendant/Techni stephanie ID = [id number] for UY , RANGEL PLASMA FREE [id number] 08:05:48 Test Item Value Reference Range Interpretation Comments HEMOGLOBIN PLASMA (BEAKER) (test 60.0 mg/dl 0.0-30.0 H code = 1054) POCT-GLUCOSE [id number] 06:19:38 Test Item Value Reference Range Interpretation Comments POC-GLUCOSE METER 126 mg/dL 70-110 H : TESTED A T [facility] 6720 (BEAKER) (test code = [place], 1538) 24[address]: Room Attendant/Techni stephanie ID = [id number] for BR OWN, LELE POCT-GLUCOSE [id number] 05:15:38 Test Item Value Reference Range Interpretation Comments POC-GLUCOSE METER 104 mg/dL 70-110 : TESTED A T [facility] 6720 (REILLY) (test code = [place], 1538) 828[address]: Room Attendant/Techni stephanie ID = [id number] for BR OWN, LELE OXYGEN SATURATION, [id number] 05:11:03 Test Item Value Reference Range Interpretation Comments O2 SATURATION (MEASURED) (REILLY) 58.3 % (test code = 1455) RAD, CHEST, 1 VIEW, NON [id number] 04:31:00Reason for exam:- >ImpellaShould this be performed at the bedside?->Yes [facility] : 1960 Sex: MFINAL REPORT RAD, CHEST, 1 VIEW, NON DEPT INDICATION: Impella COMPARISON: October 25, 2021 FINDINGS: Portable frontal view of the chest. IMPRESSION: Support Lines: Right IJ Springfield-Cheli catheter tip overlies the right pulmonary artery. Impella device is stable. Lungs and pleura: Increased bilateral pulmonary opacities suggestive of pulmonary edema. No pneumothorax.Heart and mediastinum: Stable contours. Additional findings: None. Signed: Benny Velasquez Verified Date/Time: 10/26/2021 04:31:37 POCT- GLUCOSE [id number] 04:22:22 Test Item Value Reference Range Interpretation Comments POC-GLUCOSE METER 125 mg/dL 70-110 H : TESTED A T [facility] 6720 (BEAKER) (test code = [facility], 1538) [address]: Room Attendant/Techni stephanie ID = [id number] for BR OWNDOMINGOLELE LACTIC ACID, [id number] 03:18:30 Test Item Value Reference Range Interpretation Comments LACTATE BLOOD ARTERIAL (2) 0.9 mmol/L 0.5-2.2 (BEAKER) (test code = 2874) Room Attendant ID - PANTERA MBLOOD GAS, [id number] 03:11:46 Test Item Value Reference Range Interpretation Comments PH ARTERIAL (BEAKER) (test code = 7.48 7.35-7.45 H 383) PCO2 ARTERIAL (BEAKER) (test code 40 mm Hg 35-45 = 384) PO2 ARTERIAL (BEAKER) (test code = 77 mm Hg 80-90 L 385) O2 SATURATION ARTERIAL (BEAKER) 96.2 % 96.0-97.0 (test code = 386) HCO3 ARTERIAL (BEAKER) (test code 29 mmol/L 21-29 = 388) BASE EXCESS ARTERIAL (BEAKER) 4.9 mmol/L -2.0-3.0 H (test code = 387) PATIENT TEMPERATURE (BEAKER) (test 36.9 code = 1818) FIO2 (BEAKER) (test code = 1819) 21.0 POCT-GLUCOSE [id number] 03:07:35 Test Item Value Reference Range Interpretation Comments POC-GLUCOSE METER 157 mg/dL 70-110 H : TESTED A T [facility] 6720 (BEAKER) (test code = GIO Muro [facility], 1538) 7[address]: Room Attendant/Techni stephanie ID = [id number] for BR OWN, LELE LACTATE DEHYDROGENASE (LDH)2021-10-26 02:38:03 Test Item Value Reference Range Interpretation Comments LACTATE DEHYDROGENASE (BEAKER) (test 1030 U/L 125-220 H code = 635) Room Attendant ID - MIRI WCOMPREHENSIVE METABOLIC [id number] 02:38:02 Test Item Value Reference Range Interpretation Comments TOTAL PROTEIN 6.1 gm/dL 6.0-8.3 (BEAKER) (test code = 770) ALBUMIN (BEAKER) 3.2 g/dL 3.5-5.0 L (test code = 1145) ALKALINE PHOSPHATASE 128 U/L 40-150 (BEAKER) (test code = 346) BILIRUBIN TOTAL 0.7 mg/dL 0.2-1.2 (BEAKER) (test code = 377) SODIUM (BEAKER) (test 134 meq/L 136-145 L code = 381) POTASSIUM (BEAKER) 3.8 meq/L 3.5-5.1 (test code = 379) CHLORIDE (BEAKER) 99 meq/L 98-107 (test code = 382) CO2 (BEAKER) (test 28 meq/L 22-29 code = 355) BLOOD UREA NITROGEN 31 mg/dL 7-21 H (BEAKER) (test code = 354) CREATININE (BEAKER) 1.53 mg/dL 0.57-1.25 H (test code = 358) GLUCOSE RANDOM 135 mg/dL 70-105 H (BEAKER) (test code = 652) CALCIUM (BEAKER) 8.5 mg/dL 8.4-10.2 (test code = 697) AST (SGOT) (BEAKER) 182 U/L 5-34 H (test code = 353) ALT (SGPT) (BEAKER) 348 U/L 6-55 H (test code = 347) EGFR (BEAKER) (test 47 mL/min/1.73 ESTIMA LIVAN GFR IS code = 1092) sq m NOT ACCURATE CREATININE CLEARANCE IN PREDICTING GLOMERULAR FILTRATION RATE . ESTIMATED GFR I S NOT APPLICABLE FOR DIALYSIS PATIEN TS. Room Attendant ID - MIRI [id number] 02:26:36 Test Item Value Reference Range Interpretation Comments PARTIAL THROMBOPLASTIN TIME 75.9 seconds 22.5-36.0 H (BEAKER) (test code = 760) PROTHROMBIN TIME/[id number] 02:24:57 Test Item Value Reference Range Interpretation Comments PROTIME (BEAKER) 14.8 seconds 11.9-14.2 H (test code = 759) INR (BEAKER) (test 1.18 See_Comment [Automat ed message] code = 370) The system [employer] generated this result transmitted ref erence range: <=5.90. The reference range was not used to int erpret this result as normal/abnormal . RECOMMENDED COUMADIN/WARFARIN INR THERAPY RANGESSTANDARD DOSE: 2.0 - 3.0 Includes: PROPHYLAXIS forvenous thrombosis, systemic embolization; TREATMENT for venous thrombosis and/or pulmonary embolus.HIGH RISK: Target INR is 2.5-3.5 for patients with mechanical heart valves.POCT-GLUCOSE [id number] 02:14:06 Test Item Value Reference Range Interpretation Comments POC-GLUCOSE METER 135 mg/dL 70-110 H : TESTED A T [facility] 6720 (BEAKER) (test code = [facility] [employer] [facility], 1538) [address]: Room Attendant/Techni stephanie ID = [id number] for LELE ROY OXYGEN SATURATION, [id number] 02:11:57 Test Item Value Reference Range Interpretation Comments O2 SATURATION (MEASURED) (BEAKER) 52.9 % (test code = 1455) POCT-GLUCOSE [id number] 01:24:51 Test Item Value Reference Range Interpretation Comments POC-GLUCOSE METER 97 mg/dL 70-110 : TESTED A T [facility] 6720 (BEAKER) (test code = [facility] [employer] [facility], 1538) 76[address]: Room Attendant/Techni stephanie ID = [id number] for LELE AGGARWAL POCT-GLUCOSE [id number] 00:26:51 Test Item Value Reference Range Interpretation Comments POC-GLUCOSE METER 121 mg/dL 70-110 H : TESTED A T [facility] 6720 (BEAKER) (test code = [facility] [employer] [facility], 1538) 118[address]: Room Attendant/Techni stephanie ID = [id number] for ERIKA OWNLELE BASIC METABOLIC [id number] 23:48:39 Test Item Value Reference Range Interpretation Comments SODIUM (BEAKER) 135 meq/L 136-145 L (test code = 381) POTASSIUM (BEAKER) 4.0 meq/L 3.5-5.1 Specimen moderately (test code = 379) hemolyzed CHLORIDE (BEAKER) 100 meq/L 98-107 (test code = 382) CO2 (BEAKER) (test 27 meq/L 22-29 code = 355) BLOOD UREA NITROGEN 32 mg/dL 7-21 H (BEAKER) (test code = 354) CREATININE (BEAKER) 1.55 mg/dL 0.57-1.25 H Specimen moderately (test code = 358) hemolyzed GLUCOSE RANDOM 138 mg/dL 70-105 H (BEAKER) (test code = 652) CALCIUM (BEAKER) 8.7 mg/dL 8.4-10.2 (test code = 697) EGFR (BEAKER) (test 46 mL/min/1.73 ESTIMA LIVAN GFR IS code = 1092) sq m NOT ACCURATE CREATININE CLEARANCE IN PREDICTING GLOMERULAR FILTRATION RATE . ESTIMATED GFR I S NOT APPLICABLE FOR DIALYSIS PATIEN TS. Room Attendant ID - BSPOCT-GLUCOSE [id number] 23:33:57 Test Item Value Reference Range Interpretation Comments POC-GLUCOSE METER 138 mg/dL 70-110 H : TESTED A T [facility] 6720 (BEAKER) (test code = [facility], 1538) 96[address]: Room Attendant/Techni stephanie ID = [id number] for BR OWN, LELE POCT-GLUCOSE [id number] 22:40:22 Test Item Value Reference Range Interpretation Comments POC-GLUCOSE METER 166 mg/dL 70-110 H : TESTED A T [facility] 6720 (BEAKER) (test code = [facility] [employer] [facility], 1538) 569[address]: Room Attendant/Techni stephanie ID = [id number] for BR OWN, LELE LACTIC ACID, [id number] 21:43:37 Test Item Value Reference Range Interpretation Comments LACTATE BLOOD ARTERIAL (2) 1.8 mmol/L 0.5-2.2 (BEAKER) (test code = 2874) Room Attendant ID - BSHGB/HCT (H&H) - STAT [id number] 21:36:18 Test Item Value Reference Range Interpretation Comments HEMOGLOBIN (BEAKER) (test code = 9.9 GM/DL 13.0-16.8 L 410) HEMATOCRIT (BEAKER) (test code = 29.0 % 40.0-50.0 L 411) BLOOD GAS, [id number] 21:36:17 Test Item Value Reference Range Interpretation Comments PH ARTERIAL (BEAKER) (test code = 7.53 7.35-7.45 H 383) PCO2 ARTERIAL (BEAKER) (test code 34 mm Hg 35-45 L = 384) PO2 ARTERIAL (BEAKER) (test code = 92 mm Hg 80-90 H 385) O2 SATURATION ARTERIAL (BEAKER) 97.7 % 96.0-97.0 H (test code = 386) HCO3 ARTERIAL (BEAKER) (test code 28 mmol/L 29 = 388) BASE EXCESS ARTERIAL (BEAKER) 5.4 mmol/L -2.0-3.0 H (test code = 387) PATIENT TEMPERATURE (BEAKER) (test 37.5 code = 1818) FIO2 (BEAKER) (test code = 1819) 21.0 SODIUM NA-STAT [id number] 21:36:17 Test Item Value Reference Range Interpretation Comments SODIUM (BEAKER) (test code = 381) 133 meq/L 136-145 L GLUCOSE-STAT [id number] 21:36:17 Test Item Value Reference Range Interpretation Comments GLUCOSE RANDOM (BEAKER) (test code 185 mg/dL 70-110 H = 652) OXYGEN SATURATION, [id number] 21:35:34 Test Item Value Reference Range Interpretation Comments O2 SATURATION (MEASURED) (BEAKER) 55.6 % (test code = 1455) POTASSIUM-STAT [id number] 21:35:13 Test Item Value Reference Range Interpretation Comments POTASSIUM (BEAKER) (test code = 3.6 meq/L 3.6-5.5 379) POCT-GLUCOSE [id number] 21:30:02 Test Item Value Reference Range Interpretation Comments POC-GLUCOSE METER 198 mg/dL 70-110 H : TESTED A T [facility] 6720 (BEAKER) (test code = [facility], 1538) [address]: Room Attendant/Techni stephanie ID = [id number] for BR OWN, LELE [id number] 20:37:42 Test Item Value Reference Range Interpretation Comments PARTIAL THROMBOPLASTIN TIME 68.3 seconds 22.5-36.0 H (BEAKER) (test code = 760) POCT-GLUCOSE [id number] 20:26:31 Test Item Value Reference Range Interpretation Comments POC-GLUCOSE METER 232 mg/dL 70-110 H : TESTED A T [facility] 6720 (BEAKER) (test code = [facility], 153) 00[address]: Room Attendant/Techni stephanie ID = [id number] for BR OWN LELE OXYGEN SATURATION, [id number] 20:21:01 Test Item Value Reference Range Interpretation Comments O2 SATURATION (MEASURED) (BEAKER) 43.2 % (test code = 1455) POCT-GLUCOSE [id number] 19:16:23 Test Item Value Reference Range Interpretation Comments POC-GLUCOSE METER 274 mg/dL 70-110 H : TESTED A T [facility] 6720 (BEAKER) (test code = [facility], 1538) 613[address]: Room Attendant/Techni stephanie ID = [id number] for LELE ROY POCT-GLUCOSE [id number] 17:42:54 Test Item Value Reference Range Interpretation Comments POC-GLUCOSE METER 255 mg/dL 70-110 H : TESTED A T [facility] 6720 (BEAKER) (test code = [facility], 1538) 55[address]: Room Attendant/Techni stephanie ID = [id number] for LILI JOHNSON [id number] 16:30:33 Test Item Value Reference Range Interpretation Comments MAGNESIUM (BEAKER) 2.1 mg/dL 1.6-2.6 Specimen slightly (test code = 627) hemolyzed Room Attendant ID - BSBASIC METABOLIC [id number] 16:30:33 Test Item Value Reference Range Interpretation Comments SODIUM (BEAKER) 132 meq/L 136-145 L (test code = 381) POTASSIUM (BEAKER) 4.5 meq/L 3.5-5.1 Specimen slightly (test code = 379) hemolyzed CHLORIDE (BEAKER) 100 meq/L 98-107 (test code = 382) CO2 (BEAKER) (test 25 meq/L 22-29 code = 355) BLOOD UREA NITROGEN 32 mg/dL 7-21 H (BEAKER) (test code = 354) CREATININE (BEAKER) 1.68 mg/dL 0.57-1.25 H Specimen slightly (test code = 358) hemolyzed GLUCOSE RANDOM 287 mg/dL 70-105 H (BEAKER) (test code = 652) CALCIUM (BEAKER) 8.6 mg/dL 8.4-10.2 (test code = 697) EGFR (BEAKER) (test 42 mL/min/1.73 ESTIMA LIVAN GFR IS code = 1092) sq m NOT ACCURATE CREATININE CLEARANCE IN PREDICTING GLOMERULAR FILTRATION RATE . ESTIMATED GFR I S NOT APPLICABLE FOR DIALYSIS PATIEN TS. Room Attendant ID - BSPROTEIN ELECTROPHORESIS, SERUM WITH REFLEX TO IMMUNOTYPING 2021-10-25 15:35:28 Test Item Value Reference Range Interpretation Comments ALBUMIN FRACTION 3.4 gm/dL 3.5-5.5 L (BEAKER) (test code = 405) ALPHA 1 FRACTION 0.4 gm/dL 0.2-0.4 (BEAKER) (test code = 389) ALPHA 2 FRACTION 0.6 gm/dL 0.4-1.0 (BEAKER) (test code = 390) BETA FRACTION 0.7 gm/dL 0.5-1.1 (BEAKER) (test code = 392) GAMMA GLOBULIN 1.0 gm/dL 0.7-1.6 FRACTION (BEAKER) (test code = 391) INTERPRETATION-119 Albumin minimally (BEAKER) (test code = decreased. This february 2615) indicate protein malnutrition or a protein losing state. [id number] Dimple Blas M.D. ([facility]) (test code = 2616) PROTEIN TOTAL SERUM, 6.2 gm/dL 6.0-8.3 SPEP (BEAKER) (test code = 2660) Room Attendant ID - KEVIN Simms ID - [id number] 14:58:59 Test Item Value Reference Range Interpretation Comments FERRITIN (BEAKER) (test code = 2875.27 ng/mL 5.00-275.00 H 361) Room Attendant ID - EFE GOperator ID - EFE GHEMOGLOBIN [id number] 14:38:11 Test Item Value Reference Range Interpretation Comments HEMOGLOBIN A1C 9.8 % See_Comment H [Automated m essage] ELECTROPHORESIS ([facility]) The system which (test code = 3811) generated this result transmitted ref erence range: <=5.6%. The reference range was not used to int erpret this result as normal/abnormal . "The A1c is measured using a NGSP-certified method. HbA1c value equal to or greater than 6.5% as thediagnosis cutoff for diabetes. An HbA1c value of 5.7- 6.4% indicates increased risk for diabetes (prediabetes)."Room Attendant ID - ADM OXYGEN SATURATION, [id number] 14:26:42 Test Item Value Reference Range Interpretation Comments O2 SATURATION (MEASURED) (BEAKER) 62.5 % (test code = 1455) HEPATITIS A ANTIBODY, [id number] 13:56:34 Test Item Value Reference Range Interpretation Comments HEPATITIS A IGG ANTIBODY (BEAKER) Nonreactive Nonreactive (test code = 2797) Room Attendant ID - KEVIN ESCOBAREPATITIS B CORE ANTIBODY, [id number] 13:56:33 Test Item Value Reference Range Interpretation Comments HEPATITIS B CORE TOTAL ANTIBODY Nonreactive Nonreactive (BEAKER) (test code = 497) Room Attendant ID Doug ESCOBAREPATITIS PANEL, [id number] 13:56:33 Test Item Value Reference Range Interpretation Comments HEPATITIS A IGM ANTIBODY (BEAKER) Nonreactive Nonreactive (test code = 498) HEPATITIS B CORE IGM ANTIBODY Nonreactive Nonreactive (BEAKER) (test code = 645) HEPATITIS C ANTIBODY (BEAKER) Nonreactive Nonreactive (test code = 367) HEPATITIS B SURFACE ANTIGEN (2) Nonreactive Nonreactive (BEAKER) (test code = 2585) Room Attendant ID Doug ESCOBARIV-1 ANTIGEN WITH HIV-1/2 [id number] 13:56:33 Test Item Value Reference Range Interpretation Comments HIV-1 ANTIGEN WITH HIV 1\\T\\2 Nonreactive Nonreactive ANTIBODY (2) (BEAKER) (test code = 2586) Room Attendant ID Doug BROWN L(CELLAVISION MANUAL DIFF)2021-10-25 13:42:14 Test Item Value Reference Range Interpretation Comments NEUTROPHILS - REL 83 % (CELLAVISION)(BEAKER) (test code = 2816) LYMPHOCYTES - REL 11 % (CELLAVISION)(BEAKER) (test code = 2817) MONOCYTES - REL 6 % (CELLAVISION)(BEAKER) (test code = 2818) NEUTROPHILS - ABS 14.28 K/ul 1.78-5.38 H (CELLAVISION)(BEAKER) (test code = 2830) LYMPHOCYTES - ABS 1.89 K/ul 1.32-3.57 (CELLAVISION)(BEAKER) (test code = 2831) MONOCYTES - ABS 1.03 K/uL 0.30-0.82 H (CELLAVISION)(BEAKER) (test code = 2832) TOTAL COUNTED (BEAKER) (test code 100 = 1351) MANUAL NRBC PER 100 CELLS (BEAKER) 1 /100 WBC 0-0 H (test code = 1353) WBC MORPHOLOGY (BEAKER) (test code Normal = 487) PLT MORPHOLOGY (BEAKER) (test code Normal = 486) ANISOCYTOSIS (BEAKER) (test code = 1+ few 961) MICROCYTES (BEAKER) (test code = 1+ few 965) ARTIFACT (CELLAVISION)(BEAKER) Present (test code = 3432) PLATELET CONCENTRATION Adequate (CELLAVISION)(BEAKER) (test code = 3438) Room Attendant ID - Akosua Grissom comments: Slide comments:CBC W/PLT COUNT & AUTO [id number] 13:42:13 Test Item Value Reference Range Interpretation Comments WHITE BLOOD CELL COUNT (BEAKER) 17.2 K/ L 3.5-10.5 H (test code = 775) RED BLOOD CELL COUNT (BEAKER) 3.25 M/ L 4.63-6.08 L (test code = 761) HEMOGLOBIN (BEAKER) (test code = 10.1 GM/DL 13.7-17.5 L 410) HEMATOCRIT (BEAKER) (test code = 31.3 % 40.1-51.0 L 411) MEAN CORPUSCULAR VOLUME (BEAKER) 96.3 fL 79.0-92.2 H (test code = 753) MEAN CORPUSCULAR HEMOGLOBIN 31.1 pg 25.7-32.2 (BEAKER) (test code = 751) MEAN CORPUSCULAR HEMOGLOBIN CONC 32.3 GM/DL 32.3-36.5 (BEAKER) (test code = 752) RED CELL DISTRIBUTION WIDTH 12.8 % 11.6-14.4 (BEAKER) (test code = 412) PLATELET COUNT (BEAKER) (test 302 K/CU MM 150-450 code = 756) MEAN PLATELET VOLUME (BEAKER) 10.0 fL 9.4-12.4 (test code = 754) NUCLEATED RED BLOOD CELLS 0 /100 WBC 0-0 (BEAKER) (test code = 413) VITAMIN D, [id number] 13:27:21 Test Item Value Reference Range Interpretation Comments VITAMIN D 25-OH (BEAKER) (test 35.9 ng/mL 6.6-49.9 code = 2764) Effective 07/18/2017: Reference Range ChangeNew: 6.6-49.9 ng/mL Previous: 13.0-47.8 ng/mLRecommended Vitamin D Target Range: 30.0-40.0 ng/mLOperator ID - KEVIN [id number] 13:27:10 Test Item Value Reference Range Interpretation Comments THYROID STIMULATING HORMONE 1.260 uIU/mL 0.350-4.940 (BEAKER) (test code = 772) Room Attendant ID - KEVIN LT4, [id number] 13:27:09 Test Item Value Reference Range Interpretation Comments FREE T4 (SAVAGEAKER) (test code = 655) 1.21 ng/dL 0.70-1.48 Room Attendant ID - KEVIN [id number] 13:27:09 Test Item Value Reference Range Interpretation Comments PROSTATE SPECIFIC ANTIGEN (SAVAGEAKER) 7.3 ng/mL 0.0-4.0 H (test code = 844) Room Attendant ID - KEVIN STEFANIA/S, RENAL, [id number] 13:14:00Reason for exam:- >transplantVAD evalShould this be performed at the bedside?->Yes [facility] 1960 Sex: MFINAL REPORT TECHNIQUE: Grayscale ultrasound of the kidneys and bladder.INDICATION: transplant LVAD eval. COMPARISON: None. FINDINGS: RIGHT KIDNEY: The right kidney measures 10.8 x 6.2 x 5.8 cm with a cortical thickness of 1.1 cm. No solid mass lesions. No hydronephrosis.Renal artery and vein are patent. LEFT KIDNEY: The left kidney measures 11.9 x 4.9 x 4.5 cm with a co rtical thickness of 1 cm. No solid mass lesions. No hydronephrosis. Renal artery and vein are patent. BLADDER: Unremarkable. IMPRESSION: This is a normal renal ultrasound. Signed: Abner Perdomo MDReport Verified Date/Time: 10/25/2021 13:14:23 [id number] 13:11:35 Test Item Value Reference Range Interpretation Comments TRANSFERRIN (BEAKER) (test code = 200 mg/dL 174-382 541) Room Attendant ID - KEVIN [id number] 13:11:18 Test Item Value Reference Range Interpretation Comments PREALBUMIN (BEAKER) (test code = 12 mg/dL 14-45 L 586) Room Attendant ID - KEVIN TREVOR, [id number] 13:11:18 Test Item Value Reference Range Interpretation Comments IRON (BEAKER) (test code = 547) 58.0 ug/dL 40.0-160.0 Room Attendant ID - KEVIN LB-TYPE NATRIURETIC FACTOR (BNP)2021-10-25 13:03:53 Test Item Value Reference Range Interpretation Comments B-TYPE NATRIURETIC PEPTIDE (BEAKER) 552 pg/mL 0-100 H (test code = 700) Room Attendant ID - EFE [id number] 12:39:49 Test Item Value Reference Range Interpretation Comments PARTIAL THROMBOPLASTIN TIME 78.3 seconds 22.5-36.0 H (BEAKER) (test code = 760) PROTHROMBIN TIME/[id number] 12:38:09 Test Item Value Reference Range Interpretation Comments PROTIME (BEAKER) 15.6 seconds 11.9-14.2 H (test code = 759) INR (BEAKER) (test 1.26 See_Comment [Automat ed message] code = 370) The system Zane Prep generated this result transmitted ref erence range: <=5.90. The reference range was not used to int erpret this result as normal/abnormal . RECOMMENDED COUMADIN/WARFARIN INR THERAPY RANGESSTANDARD DOSE: 2.0 - 3.0 Includes: PROPHYLAXIS forvenous thrombosis, systemic embolization; TREATMENT for venous thrombosis and/or pulmonary embolus.HIGH RISK: Target INR is 2.5-3.5 for patients with mechanical heart valves.POCT-GLUCOSE [id number] 12:32:48 Test Item Value Reference Range Interpretation Comments POC-GLUCOSE METER 161 mg/dL 70-110 H : TESTED A T [facility] 6720 (BEAKER) (test code = [facility] [place], 1538) [address]: Room Attendant/Techni stephanie ID = [id number] for LILI JOHNSON LACTATE DEHYDROGENASE (LDH)2021-10-25 11:48:54 Test Item Value Reference Range Interpretation Comments LACTATE DEHYDROGENASE (BEAKER) (test 1278 U/L 125-220 H code = 635) Room Attendant ID - KEVIN [id number] 11:48:54 Test Item Value Reference Range Interpretation Comments LIPASE (BEAKER) (test code = 749) 79 U/L 8-78 H Room Attendant ID - PIALESHA [id number] 11:48:53 Test Item Value Reference Range Interpretation Comments AMYLASE (BEAKER) (test code = 349) 37 U/L 25-125 Room Attendant ID - PONCHOALESHA LGAMMA GLUTAMYL TRANSFERASE (GGT)2021-10-25 11:48:53 Test Item Value Reference Range Interpretation Comments GAMMA GLUTAMYL TRANSFERASE (BEAKER) 18 U/L 9-64 (test code = 364) Room Attendant ID - KEVIN [id number] 11:48:52 Test Item Value Reference Range Interpretation Comments MAGNESIUM (BEAKER) (test code = 2.1 mg/dL 1.6-2.6 627) Room Attendant ID - KEVIN [id number] 11:48:52 Test Item Value Reference Range Interpretation Comments PHOSPHORUS (BEAKER) (test code = 2.0 mg/dL 2.3-4.7 L 604) Room Attendant ID - KEVIN LURIC [id number] 11:48:52 Test Item Value Reference Range Interpretation Comments URIC ACID (BEAKER) (test code = 9.7 mg/dL 2.6-7.2 H 773) Room Attendant ID - PIALESHA LHEPATIC FUNCTION [id number] 11:48:51 Test Item Value Reference Range Interpretation Comments TOTAL PROTEIN (BEAKER) (test code = 6.2 gm/dL 6.0-8.3 770) ALBUMIN (BEAKER) (test code = 1145) 3.3 g/dL 3.5-5.0 L BILIRUBIN TOTAL (BEAKER) (test code 0.9 mg/dL 0.2-1.2 = 377) BILIRUBIN DIRECT (BEAKER) (test 0.4 mg/dL 0.1-0.5 code = 706) ALKALINE PHOSPHATASE (BEAKER) (test 122 U/L 40-150 code = 346) AST (SGOT) (BEAKER) (test code = 280 U/L 5-34 H 353) ALT (SGPT) (BEAKER) (test code = 356 U/L 6-55 H 347) Room Attendant ID - PIAYA LLIPID [id number] 11:48:51 Test Item Value Reference Range Interpretation Comments TRIGLYCERIDES (BEAKER) (test code = 126 mg/dL 540) CHOLESTEROL (BEAKER) (test code = 116 mg/dL 631) HDL CHOLESTEROL (BEAKER) (test code 25 mg/dL = 976) LDL CHOLESTEROL CALCULATED (BEAKER) 66 mg/dL (test code = 633) Triglyceride Reference Range: Low Risk <150 Borderline 150-199 High Risk 200-499 Very High Risk >=500Cholesterol Reference Range: Low Risk <200 Borderline 200-239 High Risk >240HDL Cholesterol Reference Range: Low Risk >=60 High Risk <40LDL Cholesterol Reference Range: Optimal <100 Near Optimal 100-129 Borderline 130-159 High 160-189 Very High >=190 Room Attendant ID - PIAYALRETICULOCYTE [id number] 11:25:05 Test Item Value Reference Range Interpretation Comments RETICULOCYTE COUNT PCT (BEAKER) (test 2.7 % 0.5-1.8 H code = 575) Room Attendant ID - [id number] comments: Slide comments:PLASMA FREE [id number] 09:52:22 Test Item Value Reference Range Interpretation Comments HEMOGLOBIN PLASMA (BEAKER) (test 40.0 mg/dl 0.0-30.0 H code = 1054) BASIC METABOLIC [id number] 09:34:08 Test Item Value Reference Range Interpretation Comments SODIUM (BEAKER) 134 meq/L 136-145 L (test code = 381) POTASSIUM (BEAKER) 3.6 meq/L 3.5-5.1 (test code = 379) CHLORIDE (BEAKER) 102 meq/L 98-107 (test code = 382) CO2 (BEAKER) (test 24 meq/L 22-29 code = 355) BLOOD UREA NITROGEN 33 mg/dL 7-21 H (BEAKER) (test code = 354) CREATININE (BEAKER) 1.59 mg/dL 0.57-1.25 H (test code = 358) GLUCOSE RANDOM 195 mg/dL 70-105 H (BEAKER) (test code = 652) CALCIUM (BEAKER) 8.6 mg/dL 8.4-10.2 (test code = 697) EGFR (BEAKER) (test 44 mL/min/1.73 ESTIMA LIVAN GFR IS code = 1092) sq m NOT ACCURATE CREATININE CLEARANCE IN PREDICTING GLOMERULAR FILTRATION RATE . ESTIMATED GFR I S NOT APPLICABLE FOR DIALYSIS PATIEN TS. Room Attendant ID - PIAYA LPOCT-GLUCOSE [id number] 09:24:20 Test Item Value Reference Range Interpretation Comments POC-GLUCOSE METER 183 mg/dL 70-110 H : TESTED A T [facility] 6720 (BEAKER) (test code = [place], 1538) [address]: Room Attendant/Techni stephanie ID = [id number] for LILI JOHNSON, CHEST, 1 VIEW, NON [id number] 07:59:00Reason for exam:- >ImpellaShould this be performed at the bedside?->Yes [facility] : 1960 Sex: MFINAL REPORT AP view of the chest dated 10/25/2021 COMPARISON: 2CLINICAL INFORMATION: Impella Comment: Heart is in upper limits of normal in size. Pulmonary vasculature is unremarkable. There is interval improvement of atelectatic changes in the right mid lobe. The rest of the lungs are clear. No pulmonary infiltrate or pleural effusion is present. [place]-Cheli catheter and intra-aortic prepump device are present. Signed: Jose Eduardo Garza MDReport Verified Date/Time: 10/25/2021 07:59:15 Reading Location: [facility] Radiology Reading Room Electronically signedby: JOSE EDUARDO GARZA M.D. on 10/25/2021 07:59 AM(CELLAVISION MANUAL DIFF)2021-10-25 07:41:17 Test Item Value Reference Range Interpretation Comments NEUTROPHILS - REL 78 % (CELLAVISION)(BEAKER) (test code = 2816) LYMPHOCYTES - REL 15 % (CELLAVISION)(BEAKER) (test code = 2817) MONOCYTES - REL 4 % (CELLAVISION)(BEAKER) (test code = 2818) EOSINOPHILS - REL 2 % (CELLAVISION)(BEAKER) (test code = 2819) BASOPHILS - REL 1 % (CELLAVISION)(BEAKER) (test code = 2820) NEUTROPHILS - ABS 11.70 K/ul 1.78-5.38 H (CELLAVISION)(BEAKER) (test code = 2830) LYMPHOCYTES - ABS 2.25 K/ul 1.32-3.57 (CELLAVISION)(BEAKER) (test code = 2831) MONOCYTES - ABS 0.60 K/uL 0.30-0.82 (CELLAVISION)(BEAKER) (test code = 2832) EOSINOPHILS - ABS 0.30 K/uL 0.04-0.54 (CELLAVISION)(BEAKER) (test code = 2834) BASOPHILS - ABS 0.15 K/uL 0.01-0.08 H (CELLAVISION)(BEAKER) (test code = 2835) TOTAL COUNTED (BEAKER) (test code 100 = 1351) WBC MORPHOLOGY (BEAKER) (test code Normal = 487) PLT MORPHOLOGY (BEAKER) (test code Normal = 486) POLYCHROMATOPHILLIC RBCS(BEAKER) 1+ few (test code = 478) ARTIFACT (CELLAVISION)(BEAKER) Present (test code = 3432) PLATELET CONCENTRATION Adequate (CELLAVISION)(BEAKER) (test code = 3438) Room Attendant ID - Akosua Grissom comments: Slide comments:CBC W/PLT COUNT & AUTO [id number] 07:41:16 Test Item Value Reference Range Interpretation Comments WHITE BLOOD CELL COUNT (BEAKER) 15.0 K/ L 3.5-10.5 H (test code = 775) RED BLOOD CELL COUNT (BEAKER) 3.07 M/ L 4.63-6.08 L (test code = 761) HEMOGLOBIN (BEAKER) (test code = 9.6 GM/DL 13.7-17.5 L 410) HEMATOCRIT (BEAKER) (test code = 28.8 % 40.1-51.0 L 411) MEAN CORPUSCULAR VOLUME (BEAKER) 93.8 fL 79.0-92.2 H (test code = 753) MEAN CORPUSCULAR HEMOGLOBIN 31.3 pg 25.7-32.2 (BEAKER) (test code = 751) MEAN CORPUSCULAR HEMOGLOBIN CONC 33.3 GM/DL 32.3-36.5 (BEAKER) (test code = 752) RED CELL DISTRIBUTION WIDTH 12.9 % 11.6-14.4 (BEAKER) (test code = 412) PLATELET COUNT (BEAKER) (test 319 K/CU MM 150-450 code = 756) MEAN PLATELET VOLUME (BEAKER) 9.8 fL 9.4-12.4 (test code = 754) NUCLEATED RED BLOOD CELLS 0 /100 WBC 0-0 (BEAKER) (test code = 413) POCT-GLUCOSE [id number] 07:17:46 Test Item Value Reference Range Interpretation Comments POC-GLUCOSE METER 157 mg/dL 70-110 H : TESTED A T [facility] 6720 (BEAKER) (test code = [place], 1538) [id number]: Room Attendant/Techni stephanie ID = [id number] for JEROD WERNER VANCOMYCIN LEVEL, [id number] 07:00:42 Test Item Value Reference Range Interpretation Comments VANCOMYCIN TROUGH (BEAKER) (test 14.1 ug/mL 10.0-20.0 code = 522) Room Attendant ID - [id number] 06:52:03 Test Item Value Reference Range Interpretation Comments MAGNESIUM (BEAKER) (test code = 2.1 mg/dL 1.6-2.6 627) Room Attendant ID - eoPOCT-GLUCOSE [id number] 05:36:32 Test Item Value Reference Range Interpretation Comments POC-GLUCOSE METER 191 mg/dL 70-110 H : TESTED A T [facility] 6720 (BEAKER) (test code = [facility], 1538) [address]: Room Attendant/Techni stephanie ID = [id number] for JEROD WERNER POCT-GLUCOSE [id number] 04:34:06 Test Item Value Reference Range Interpretation Comments POC-GLUCOSE METER 171 mg/dL 70-110 H : TESTED A T [facility] 6720 (BEAKER) (test code = [facility], 1538) [address]: Room Attendant/Techni stephanie ID = [id number] for JEROD WERNER COMPREHENSIVE METABOLIC [id number] 04:31:30 Test Item Value Reference Range Interpretation Comments TOTAL PROTEIN 6.2 gm/dL 6.0-8.3 (BEAKER) (test code = 770) ALBUMIN (BEAKER) 3.2 g/dL 3.5-5.0 L (test code = 1145) ALKALINE PHOSPHATASE 130 U/L 40-150 (BEAKER) (test code = 346) BILIRUBIN TOTAL 0.9 mg/dL 0.2-1.2 (BEAKER) (test code = 377) SODIUM (BEAKER) (test 137 meq/L 136-145 code = 381) POTASSIUM (BEAKER) 3.3 meq/L 3.5-5.1 L (test code = 379) CHLORIDE (BEAKER) 103 meq/L 98-107 (test code = 382) CO2 (BEAKER) (test 26 meq/L 22-29 code = 355) BLOOD UREA NITROGEN 35 mg/dL 7-21 H (BEAKER) (test code = 354) CREATININE (BEAKER) 1.66 mg/dL 0.57-1.25 H (test code = 358) GLUCOSE RANDOM 183 mg/dL 70-105 H (BEAKER) (test code = 652) CALCIUM (BEAKER) 8.2 mg/dL 8.4-10.2 L (test code = 697) AST (SGOT) (BEAKER) 344 U/L 5-34 H (test code = 353) ALT (SGPT) (BEAKER) 364 U/L 6-55 H (test code = 347) EGFR (BEAKER) (test 42 mL/min/1.73 ESTIMA LIVAN GFR IS code = 1092) sq m NOT ACCURATE CREATININE CLEARANCE IN PREDICTING GLOMERULAR FILTRATION RATE . ESTIMATED GFR I S NOT APPLICABLE FOR DIALYSIS PATIEN TS. Room Attendant ID - EFE GLACTATE DEHYDROGENASE (LDH)2021-10-25 04:31:30 Test Item Value Reference Range Interpretation Comments LACTATE DEHYDROGENASE (BEAKER) (test 1414 U/L 125-220 H code = 635) Room Attendant ID - EFE GCALCIUM, [id number] 04:18:59 Test Item Value Reference Range Interpretation Comments CALCIUM IONIZED (BEAKER) (test 1.04 mmol/L 1.12-1.27 L code = 698) PH, BLOOD (BEAKER) (test code = 7.48 1810) BLOOD GAS, [id number] 04:18:35 Test Item Value Reference Range Interpretation Comments PH ARTERIAL (BEAKER) (test code = 7.48 7.35-7.45 H 383) PCO2 ARTERIAL (BEAKER) (test code 35 mm Hg 35-45 = 384) PO2 ARTERIAL (BEAKER) (test code = 115 mm Hg 80-90 H 385) O2 SATURATION ARTERIAL (BEAKER) 98.4 % 96.0-97.0 H (test code = 386) HCO3 ARTERIAL (BEAKER) (test code 25 mmol/L 21-29 = 388) BASE EXCESS ARTERIAL (BEAKER) 1.8 mmol/L -2.0-3.0 (test code = 387) PATIENT TEMPERATURE (BEAKER) (test 37.2 code = 1818) FIO2 (BEAKER) (test code = 1819) 36.0 OXYGEN SATURATION, [id number] 04:15:03 Test Item Value Reference Range Interpretation Comments O2 SATURATION (MEASURED) (BEAKER) 65.3 % (test code = 1455) [id number] 04:12:44 Test Item Value Reference Range Interpretation Comments PARTIAL THROMBOPLASTIN TIME 80.5 seconds 22.5-36.0 H (BEAKER) (test code = 760) PROTHROMBIN TIME/[id number] 04:11:02 Test Item Value Reference Range Interpretation Comments PROTIME (BEAKER) 16.7 seconds 11.9-14.2 H (test code = 759) INR (BEAKER) (test 1.38 See_Comment [Automat ed message] code = 370) The system [employer] generated this result transmitted ref erence range: <=5.90. The reference range was not used to int erpret this result as normal/abnormal . RECOMMENDED COUMADIN/WARFARIN INR THERAPY RANGESSTANDARD DOSE: 2.0 - 3.0 Includes: PROPHYLAXIS forvenous thrombosis, systemic embolization; TREATMENT for venous thrombosis and/or pulmonary embolus.HIGH RISK: Target INR is 2.5-3.5 for patients with mechanical heart valves.POCT-GLUCOSE [id number] 02:13:43 Test Item Value Reference Range Interpretation Comments POC-GLUCOSE METER 208 mg/dL 70-110 H : TESTED A T [facility] 6720 (BEAKER) (test code = [place], 1538) [address]: Room Attendant/Techni stephanei ID = [id number] for JEROD WERNER [id number] 23:50:56 Test Item Value Reference Range Interpretation Comments MAGNESIUM (BEAKER) 1.9 mg/dL 1.6-2.6 Specimen moderately (test code = 627) hemolyzed Room Attendant ID - KEVIN L-Patient is on Impella, which may hemolyze the blood.Room Attendant ID - KEVIN LBASIC METABOLIC [id number] 23:50:56 Test Item Value Reference Range Interpretation Comments SODIUM (BEAKER) 134 meq/L 136-145 L (test code = 381) POTASSIUM (BEAKER) 4.0 meq/L 3.5-5.1 Specimen moderately (test code = 379) hemolyzed CHLORIDE (BEAKER) 102 meq/L 98-107 (test code = 382) CO2 (BEAKER) (test 20 meq/L 22-29 L code = 355) BLOOD UREA NITROGEN 38 mg/dL 7-21 H (BEAKER) (test code = 354) CREATININE (BEAKER) 1.90 mg/dL 0.57-1.25 H Specimen moderately (test code = 358) hemolyzed GLUCOSE RANDOM 300 mg/dL 70-105 H (BEAKER) (test code = 652) CALCIUM (BEAKER) 8.4 mg/dL 8.4-10.2 (test code = 697) EGFR (BEAKER) (test 36 mL/min/1.73 ESTIMA LIVAN GFR IS code = 1092) sq m NOT ACCURATE CREATININE CLEARANCE IN PREDICTING GLOMERULAR FILTRATION RATE . ESTIMATED GFR I S NOT APPLICABLE FOR DIALYSIS PATIEN TS. Patient is on Impella, which may hemolyze the blood.Room Attendant ID - KEVIN LLACTIC ACID, [id number] 23:24:13 Test Item Value Reference Range Interpretation Comments LACTATE BLOOD 2.2 mmol/L 0.5-2.2 Specimen moder ately ARTERIAL (2) (BEAKER) hemoly zed (test code = 2874) Room Attendant ID - KEVIN LHGB/HCT (H&H) - STAT [id number] 23:00:36 Test Item Value Reference Range Interpretation Comments HEMOGLOBIN (BEAKER) (test code = 10.6 GM/DL 13.0-16.8 L 410) HEMATOCRIT (BEAKER) (test code = 31.0 % 40.0-50.0 L 411) GLUCOSE-STAT [id number] 23:00:35 Test Item Value Reference Range Interpretation Comments GLUCOSE RANDOM (BEAKER) (test code 301 mg/dL 70-110 H = 652) BLOOD GAS, [id number] 23:00:19 Test Item Value Reference Range Interpretation Comments PH ARTERIAL (BEAKER) (test code = 7.52 7.35-7.45 H 383) PCO2 ARTERIAL (BEAKER) (test code 31 mm Hg 35-45 L = 384) PO2 ARTERIAL (BEAKER) (test code = 101 mm Hg 80-90 H 385) O2 SATURATION ARTERIAL (BEAKER) 98.2 % 96.0-97.0 H (test code = 386) HCO3 ARTERIAL (BEAKER) (test code 25 mmol/L 21-29 = 388) BASE EXCESS ARTERIAL (BEAKER) 2.2 mmol/L -2.0-3.0 (test code = 387) PATIENT TEMPERATURE (BEAKER) (test 36.9 code = 1818) FIO2 (BEAKER) (test code = 1819) 36.0 SODIUM NA-STAT [id number] 22:58:51 Test Item Value Reference Range Interpretation Comments SODIUM (BEAKER) (test code = 381) 137 meq/L 136-145 POTASSIUM-STAT [id number] 22:58:51 Test Item Value Reference Range Interpretation Comments POTASSIUM (BEAKER) (test code = 3.5 meq/L 3.6-5.5 L 379) SARS-COV2/RT-PCR ([facility])2021-10-24 21:55:27 Test Item Value Reference Range Interpretation Comments SARS-COV2/RT-PCR (test code = Negative Negative [id number]) Negative result for this test determines that SARS-CoV-2 RNA was not present in the specimen above the Limit of Detection (LOD). However, Negative results do not preclude SARS-CoV-2 infection and should not be used as the sole basis for treatment or patient management decisions. Negative results must be combined with clinical observations, patient history, and epidemiological information. A false negative result may occur if a specimen is improperly collected, transported, or handled. A false negative result should be considered if patient's recent exposures or clinical presentation indicate that COVID-19 (SARS-CoV-2) is likely and diagnostic tests for other causes of illness are negative. Re-testing should be considered in cases of suspected false negatives.The limit of detection for this assay is 100 copies/mL.This SARS-CoV-2 test is a real-time RT_PCR test intended for the qualitative detection of nucleic acid from SARS-CoV-2 in a nasopharyngeal swab specimen collected from individuals suspected of COVID-19 by their healthcare provider.This test has not been Food and Drug Administration (FDA) cleared or approved. This is a modified version of an approved Emergency Use Authorization (EUA) and is in the process of review by the FDA. Once authorized by the FDA, the issued EUA will be e ffective until the declaration that circumstances exist justifying the authorization of the emergency use of in vitro diagnostic tests for detection and/or diagnosis of COVID-19 is terminated under Section 564(b)(2) of the Act or the EUA is revoked under Section 564(g) of the Act.Testing was performedusing the [employer] SARS-CoV-2 assay.Fact Sheet for Healthcare Providers:https://www.molecular.dowling/lorena/RT SARS-CoV-2 HCP Fact Sheet 51- 586029.pdfFact Sheet for Healthcare Patients:https://www.molecular.dowling/lorena/RT SARS-CoV-2 Patient Fact Sheet EN 51-671119I0.pdfPOCT-GLUCOSE [id number] 20:56:21 Test Item Value Reference Range Interpretation Comments POC-GLUCOSE METER 297 mg/dL 70-110 H : TESTED A T [facility] 6720 (BEAKER) (test code = [place], 1538) [address]: Room Attendant/Techni stephanie ID = [id number] for JEROD WERNER POCT-GLUCOSE [id number] 16:52:57 Test Item Value Reference Range Interpretation Comments POC-GLUCOSE METER 297 mg/dL 70-110 H : TESTED A T [facility] 6720 (BEAKER) (test code = [place], 1538) [address]: Room Attendant/Techni stephanie ID = [id number] for Shivam Lacy BASIC METABOLIC [id number] 16:16:24 Test Item Value Reference Range Interpretation Comments SODIUM (BEAKER) 135 meq/L 136-145 L (test code = 381) POTASSIUM (BEAKER) 3.7 meq/L 3.5-5.1 (test code = 379) CHLORIDE (BEAKER) 103 meq/L 98-107 (test code = 382) CO2 (BEAKER) (test 21 meq/L 22-29 L code = 355) BLOOD UREA NITROGEN 36 mg/dL 7-21 H (BEAKER) (test code = 354) CREATININE (BEAKER) 1.98 mg/dL 0.57-1.25 H (test code = 358) GLUCOSE RANDOM 347 mg/dL 70-105 H (BEAKER) (test code = 652) CALCIUM (BEAKER) 8.3 mg/dL 8.4-10.2 L (test code = 697) EGFR (BEAKER) (test 35 mL/min/1.73 ESTIMA LIVAN GFR IS code = 1092) sq m NOT ACCURATE CREATININE CLEARANCE IN PREDICTING GLOMERULAR FILTRATION RATE . ESTIMATED GFR I S NOT APPLICABLE FOR DIALYSIS PATIEN TS. Room Attendant ID - [id number] 16:09:19 Test Item Value Reference Range Interpretation Comments PARTIAL THROMBOPLASTIN TIME 72.0 seconds 22.5-36.0 H (BEAKER) (test code = 760) OXYGEN SATURATION, [id number] 15:32:10 Test Item Value Reference Range Interpretation Comments O2 SATURATION (MEASURED) (BEAKER) 63.0 % (test code = 1455) POCT-GLUCOSE [id number] 14:04:21 Test Item Value Reference Range Interpretation Comments POC-GLUCOSE METER 320 mg/dL 70-110 H : TESTED A T [facility] 6720 (BEAKER) (test code = [place], 1538) [address]: Room Attendant/Techni stephanie ID = [id number] for Shivam Lacy PLASMA FREE [id number] 11:01:04 Test Item Value Reference Range Interpretation Comments HEMOGLOBIN PLASMA (BEAKER) (test 90.0 mg/dl 0.0-30.0 H code = 1054) COMPREHENSIVE METABOLIC [id number] 11:00:48 Test Item Value Reference Range Interpretation Comments TOTAL PROTEIN 6.4 gm/dL 6.0-8.3 Specimen sligh tly (BEAKER) (test code = hemoly zed 770) ALBUMIN (BEAKER) 3.3 g/dL 3.5-5.0 L Specimen sl ightly (test code = 1145) hemolyzed ALKALINE PHOSPHATASE 134 U/L 40-150 (BEAKER) (test code = 346) BILIRUBIN TOTAL 1.1 mg/dL 0.2-1.2 Specimen sli ghtly (BEAKER) (test code = hemoly zed 377) SODIUM (BEAKER) (test 137 meq/L 136-145 code = 381) POTASSIUM (BEAKER) 4.2 meq/L 3.5-5.1 Specimen slightly (test code = 379) hemolyzed CHLORIDE (BEAKER) 107 meq/L 98-107 (test code = 382) CO2 (BEAKER) (test 20 meq/L 22-29 L code = 355) BLOOD UREA NITROGEN 36 mg/dL 7-21 H (BEAKER) (test code = 354) CREATININE (BEAKER) 2.03 mg/dL 0.57-1.25 H Specimen slightly (test code = 358) hemolyzed GLUCOSE RANDOM 370 mg/dL 70-105 H (BEAKER) (test code = 652) CALCIUM (BEAKER) 8.1 mg/dL 8.4-10.2 L (test code = 697) AST (SGOT) (BEAKER) 490 U/L 5-34 H Specimen slightly (test code = 353) hemolyzed ALT (SGPT) (BEAKER) 235 U/L 6-55 H Specimen slightly (test code = 347) hemolyzed EGFR (BEAKER) (test 34 mL/min/1.73 ESTIMA LIVAN GFR IS code = 1092) sq m NOT ACCURATE CREATININE CLEARANCE IN PREDICTING GLOMERULAR FILTRATION RATE . ESTIMATED GFR I S NOT APPLICABLE FOR DIALYSIS PATIEN TS. Room Attendant ID - KEVIN LBASIC METABOLIC [id number] 11:00:47 Test Item Value Reference Range Interpretation Comments SODIUM (BEAKER) 137 meq/L 136-145 (test code = 381) POTASSIUM (BEAKER) 4.2 meq/L 3.5-5.1 Specimen slightly (test code = 379) hemolyzed CHLORIDE (BEAKER) 107 meq/L 98-107 (test code = 382) CO2 (BEAKER) (test 20 meq/L 22-29 L code = 355) BLOOD UREA NITROGEN 36 mg/dL 7-21 H (BEAKER) (test code = 354) CREATININE (BEAKER) 2.03 mg/dL 0.57-1.25 H Specimen slightly (test code = 358) hemolyzed GLUCOSE RANDOM 370 mg/dL 70-105 H (BEAKER) (test code = 652) CALCIUM (BEAKER) 8.1 mg/dL 8.4-10.2 L (test code = 697) EGFR (BEAKER) (test 34 mL/min/1.73 ESTIMA LIVAN GFR IS code = 1092) sq m NOT ACCURATE CREATININE CLEARANCE IN PREDICTING GLOMERULAR FILTRATION RATE . ESTIMATED GFR I S NOT APPLICABLE FOR DIALYSIS PATIEN TS. OXYGEN SATURATION, [id number] 10:45:01 Test Item Value Reference Range Interpretation Comments O2 SATURATION (MEASURED) (BEAKER) 44.2 % (test code = 1455) [id number] 10:43:24 Test Item Value Reference Range Interpretation Comments PARTIAL THROMBOPLASTIN TIME 70.6 seconds 22.5-36.0 H (BEAKER) (test code = 760) [id number] 10:41:03 Test Item Value Reference Range Interpretation Comments MAGNESIUM (BEAKER) 1.8 mg/dL 1.6-2.6 Specimen slightly (test code = 627) hemolyzed Room Attendant ID - KEVIN LRAD, CHEST, 1 VIEW, NON [id number] 10:35:00Reason for exam:->ImpellaShould this be performed at the bedside?->Yes [facility] 1960 Sex: MFINAL REPORT Chest, one view. HISTORY: Impella COMPARISON: Radiograph from yesterday IMPRESSION: The support lines and tubes are unchanged in position. Specifically, the implant device is unchanged in position with the proximal portion over the descending thoracic aorta and distal portion of the left ventricle. The lungs are clear. No pleural effusion or pneumothorax. The cardiac silhouette is unchanged in size. No acute bone abnormality. Prior median sternotomy. The superiormost sternotomy wire is fractured. Signed: Abner Perdomo MDReport Verified Date/Time: 10/24/2021 10:35:24 Reading Location: [facility] Radiology Reading Room LACTIC ACID, [id number] 10:31:59 Test Item Value Reference Range Interpretation Comments LACTATE BLOOD 2.1 mmol/L 0.5-2.2 Specimen sligh tly ARTERIAL (2) (Wipster) hemoly zed (test code = 2874) Room Attendant ID - PIAYA LHEMOGLOBIN [id number] 10:15:54 Test Item Value Reference Range Interpretation Comments HEMOGLOBIN A1C 10.0 % See_Comment H [Automated m essage] ELECTROPHORESIS (Selectable MediaQUINN) The system which (test code = 3811) generated this result transmitted ref erence range: <=5.6%. The reference range was not used to int erpret this result as normal/abnormal . "The A1c is measured using a NGSP-certified method. HbA1c value equal to or greater than 6.5% as thediagnosis cutoff for diabetes. An HbA1c value of 5.7- 6.4% indicates increased risk for diabetes (prediabetes)."Room Attendant ID - ADMPOCT- GLUCOSE [id number] 08:00:55 Test Item Value Reference Range Interpretation Comments POC-GLUCOSE METER 323 mg/dL 70-110 H : TESTED Layla Potts [facility] 6720 (BEAKER) (test code = [place], 1538) [address]: Room Attendant/Techni stephanie ID = [id number] for Shivam Lacy (CELLAVISION MANUAL DIFF)2021-10-24 07:42:28 Test Item Value Reference Range Interpretation Comments NEUTROPHILS - REL 86 % (CELLAVISION)(BEAKER) (test code = 2816) LYMPHOCYTES - REL 5 % (CELLAVISION)(BEAKER) (test code = 2817) MONOCYTES - REL 8 % (CELLAVISION)(BEAKER) (test code = 2818) MYELOCYTES - REL 1 % 0-0 H (CELLAVISION)(BEAKER) (test code = 2822) NEUTROPHILS - ABS 15.82 K/ul 1.78-5.38 H (CELLAVISION)(BEAKER) (test code = 2830) LYMPHOCYTES - ABS 0.92 K/ul 1.32-3.57 L (CELLAVISION)(BEAKER) (test code = 2831) MONOCYTES - ABS 1.47 K/uL 0.30-0.82 H (CELLAVISION)(BEAKER) (test code = 2832) MYELOCYTES-ABS 0.18 K/uL 0.00-0.00 H (CELLAVISION)(BEAKER) (test code = 2837) TOTAL COUNTED (BEAKER) (test code 100 = 1351) WBC MORPHOLOGY (BEAKER) (test Normal code = 487) GIANT PLATELETS (BEAKER) (test Present code = 313) POIKILOCYTES (BEAKER) (test code 2+ moderate = 966) SPHEROCYTES (BEAKER) (test code = 1+ few 768) ELLIPTOCYTES (BEAKER) (test code 1+ few = 962) ARTIFACT (CELLAVISION)(BEAKER) Present (test code = 3432) PLATELET CONCENTRATION Increased (CELLAVISION)(BEAKER) (test code = 3438) Room Attendant ID - jacob Martínez comments: Slide comments:CBC W/PLT COUNT & AUTO [id number] 07:42:27 Test Item Value Reference Range Interpretation Comments WHITE BLOOD CELL COUNT (BEAKER) 18.4 K/ L 3.5-10.5 H (test code = 775) RED BLOOD CELL COUNT (BEAKER) 3.03 M/ L 4.63-6.08 L (test code = 761) HEMOGLOBIN (BEAKER) (test code = 9.4 GM/DL 13.7-17.5 L 410) HEMATOCRIT (BEAKER) (test code = 28.8 % 40.1-51.0 L 411) MEAN CORPUSCULAR VOLUME (BEAKER) 95.0 fL 79.0-92.2 H (test code = 753) MEAN CORPUSCULAR HEMOGLOBIN 31.0 pg 25.7-32.2 (BEAKER) (test code = 751) MEAN CORPUSCULAR HEMOGLOBIN CONC 32.6 GM/DL 32.3-36.5 (BEAKER) (test code = 752) RED CELL DISTRIBUTION WIDTH 13.1 % 11.6-14.4 (BEAKER) (test code = 412) PLATELET COUNT (BEAKER) (test 490 K/CU MM 150-450 H code = 756) MEAN PLATELET VOLUME (BEAKER) 10.4 fL 9.4-12.4 (test code = 754) NUCLEATED RED BLOOD CELLS 0 /100 WBC 0-0 (BEAKER) (test code = 413) RAD, ABDOMEN/KUB, 1 VIEW [id number] 06:50:00Reason for exam:->r/o ileus [facility] 1960 Sex: MFINAL REPORT RAD, ABDOMEN/KUB, 1 VIEW AP CLINICAL HISTORY: r/o ileus TECHNIQUE: RAD, ABDOMEN/KUB, 1 VIEW AP COMPARISON: None IMPRESSION:Moderate gaseous distention of the stomach possibly representing gastroparesis or less likely gastric outlet obstruction. Remainder of bowel gas pattern is nonobstructive and nonspecific. No free air identified. IVC filter noted Signed: Benny Velasquez MDReport Verified Date/Time: 10/24/2021 06:50:47 REHENSIVE METABOLIC [id number] 05:58:21 Test Item Value Reference Range Interpretation Comments TOTAL PROTEIN 7.2 gm/dL 6.0-8.3 Specimen marke dly (BEAKER) (test code = hemoly zed 770) ALBUMIN (BEAKER) 3.4 g/dL 3.5-5.0 L Specimen ma rkedly (test code = 1145) hemolyzed ALKALINE PHOSPHATASE 119 U/L 40-150 (BEAKER) (test code = 346) BILIRUBIN TOTAL 0.8 mg/dL 0.2-1.2 Specimen mar kedly (BEAKER) (test code = hemoly zed 377) SODIUM (BEAKER) (test 135 meq/L 136-145 L code = 381) POTASSIUM (BEAKER) 5.2 meq/L 3.5-5.1 H Specimen markedly (test code = 379) hemolyzed CHLORIDE (BEAKER) 107 meq/L 98-107 (test code = 382) CO2 (BEAKER) (test 18 meq/L 22-29 L code = 355) BLOOD UREA NITROGEN 37 mg/dL 7-21 H (BEAKER) (test code = 354) CREATININE (BEAKER) 2.31 mg/dL 0.57-1.25 H Specimen markedly (test code = 358) hemolyzed GLUCOSE RANDOM 365 mg/dL 70-105 H (BEAKER) (test code = 652) CALCIUM (BEAKER) 8.2 mg/dL 8.4-10.2 L (test code = 697) AST (SGOT) (BEAKER) 363 U/L 5-34 H Specimen markedly (test code = 353) hemolyzed ALT (SGPT) (BEAKER) 177 U/L 6-55 H Specimen markedly (test code = 347) hemolyzed EGFR (BEAKER) (test 29 mL/min/1.73 ESTIMA LIVAN GFR IS code = 1092) sq m NOT ACCURATE CREATININE CLEARANCE IN PREDICTING GLOMERULAR FILTRATION RATE . ESTIMATED GFR I S NOT APPLICABLE FOR DIALYSIS PATIEN TS. Patient on Impella device per [id number] PomariaseyOperator ID - KEVIN Walker has impella device as per rn b#[id number] DEHYDROGENASE (LDH)2021-10-24 05:58:09 Test Item Value Reference Range Interpretation Comments LACTATE DEHYDROGENASE 1448 U/L 125-220 H Specim en markedly (BEAKER) (test code = hemoly zed 635) Room Attendant ID - KEVIN Walker has impella device as per rn b#[id number] 05:39:54 Test Item Value Reference Range Interpretation Comments PARTIAL THROMBOPLASTIN TIME 56.9 seconds 22.5-36.0 H (BEAKER) (test code = 760) PROTHROMBIN [id number] 05:38:49 Test Item Value Reference Range Interpretation Comments PROTIME (BEAKER) 20.3 seconds 11.9-14.2 H (test code = 759) INR (BEAKER) (test 1.76 See_Comment [Automat ed message] code = 370) The system Zane Prep generated this result transmitted ref erence range: <=5.90. The reference range was not used to int erpret this result as normal/abnormal . RECOMMENDED COUMADIN/WARFARIN INR THERAPY RANGESSTANDARD DOSE: 2.0 - 3.0 Includes: PROPHYLAXIS forvenous thrombosis, systemic embolization; TREATMENT for venous thrombosis and/or pulmonary embolus.HIGH RISK: Target INR is 2.5-3.5 for patients with mechanical heart valves.[id number] 03:00:52 Test Item Value Reference Range Interpretation Comments PARTIAL THROMBOPLASTIN TIME 52.7 seconds 22.5-36.0 H (BEAKER) (test code = 760) BLOOD GAS, [id number] 02:50:07 Test Item Value Reference Range Interpretation Comments PH ARTERIAL (BEAKER) (test code = 7.42 7.35-7.45 383) PCO2 ARTERIAL (BEAKER) (test code 28 mm Hg 35-45 L = 384) PO2 ARTERIAL (BEAKER) (test code 96 mm Hg 80-90 H = 385) O2 SATURATION ARTERIAL (BEAKER) 97.7 % 96.0-97.0 H (test code = 386) HCO3 ARTERIAL (BEAKER) (test code 18 mmol/L 21-29 L = 388) BASE EXCESS ARTERIAL (BEAKER) -5.8 mmol/L -2.0-3.0 L (test code = 387) PATIENT TEMPERATURE (BEAKER) 36.2 (test code = 1818) FIO2 (BEAKER) (test code = 1819) 21.0 PLATELET [id number] 02:43:48 Test Item Value Reference Range Interpretation Comments PLATELET COUNT (BEAKER) (test 436 K/CU MM 150-450 code = 756) Room Attendant ID - 6000POCT-GLUCOSE [id number] 00:04:48 Test Item Value Reference Range Interpretation Comments POC-GLUCOSE METER 322 mg/dL 70-110 H : TESTED A T [facility] 6720 (BEAKER) (test code = [place], 1538) [address]: Room Attendant/Techni stephanie ID = [id number] for Am eulalio, [place] PT/[id number] 22:54:13 Test Item Value Reference Range Interpretation Comments PROTIME (BEAKER) (test 23.4 seconds 11.9-14.2 H code = 759) INR (BEAKER) (test 2.11 See_Comment [Automat ed code = 370) message] The system which generated this result transmit livan reference range : <=5.90. The reference range was not used to interpret this result as normal/abnormal . PARTIAL THROMBOPLASTIN 164.4 seconds 22.5-36.0 HH TIME (BEAKER) (test code = 760) RECOMMENDED COUMADIN/WARFARIN INR THERAPY RANGESSTANDARD DOSE: 2.0 - 3.0 Includes: PROPHYLAXIS forvenous thrombosis, systemic embolization; TREATMENT for venous thrombosis and/or pulmonary embolus.HIGH RISK: Target INR is 2.5-3.5 for patients with mechanical heart valves.BASIC METABOLIC [id number] 22:23:25 Test Item Value Reference Range Interpretation Comments SODIUM (BEAKER) 130 meq/L 136-145 L (test code = 381) POTASSIUM (BEAKER) 5.3 meq/L 3.5-5.1 H Specimen slightly (test code = 379) hemolyzed CHLORIDE (BEAKER) 106 meq/L 98-107 (test code = 382) CO2 (BEAKER) (test 15 meq/L 22-29 L code = 355) BLOOD UREA NITROGEN 38 mg/dL 7-21 H (BEAKER) (test code = 354) CREATININE (BEAKER) 2.38 mg/dL 0.57-1.25 H Specimen slightly (test code = 358) hemolyzed GLUCOSE RANDOM 345 mg/dL 70-105 H (BEAKER) (test code = 652) CALCIUM (BEAKER) 8.0 mg/dL 8.4-10.2 L (test code = 697) EGFR (BEAKER) (test 28 mL/min/1.73 ESTIMA LIVAN GFR IS code = 1092) sq m NOT ACCURATE CREATININE CLEARANCE IN PREDICTING GLOMERULAR FILTRATION RATE . ESTIMATED GFR I S NOT APPLICABLE FOR DIALYSIS PATIEN TS. Room Attendant ID - DB(CELLAVISION MANUAL DIFF)2021-10-23 22:22:08 Test Item Value Reference Range Interpretation Comments NEUTROPHILS - REL 87 % (CELLAVISION)(BEAKER) (test code = 2816) LYMPHOCYTES - REL 3 % (CELLAVISION)(BEAKER) (test code = 2817) MONOCYTES - REL 7 % (CELLAVISION)(BEAKER) (test code = 2818) BANDS - REL (CELLAVISION)(BEAKER) 3 % 0-10 (test code = 2826) NEUTROPHILS - ABS 16.62 K/ul 1.78-5.38 H (CELLAVISION)(BEAKER) (test code = 2830) LYMPHOCYTES - ABS 0.57 K/ul 1.32-3.57 L (CELLAVISION)(BEAKER) (test code = 2831) MONOCYTES - ABS 1.34 K/uL 0.30-0.82 H (CELLAVISION)(BEAKER) (test code = 2832) BANDS - ABS (CELLAVISION)(BEAKER) 0.57 K/uL 0.00-0.80 (test code = 2840) TOTAL COUNTED (BEAKER) (test code 100 = 1351) SMUDGE CELLS (BEAKER) (test code Present = 1371) GIANT PLATELETS (BEAKER) (test Present code = 313) POIKILOCYTES (BEAKER) (test code 2+ moderate = 966) PLATELET CONCENTRATION Adequate (CELLAVISION)(BEAKER) (test code = 3438) Room Attendant ID - dionte Campbell comments: Slide comments:[id number] 22:21:15 Test Item Value Reference Range Interpretation Comments MAGNESIUM (BEAKER) 1.9 mg/dL 1.6-2.6 Specimen slightly (test code = 627) hemolyzed Room Attendant ID - [id number] 22:21:15 Test Item Value Reference Range Interpretation Comments PHOSPHORUS (BEAKER) 4.2 mg/dL 2.3-4.7 Specimen slightly (test code = 604) hemolyzed Room Attendant ID - DBLACTIC ACID, [id number] 22:17:32 Test Item Value Reference Range Interpretation Comments LACTATE BLOOD 2.0 mmol/L 0.5-2.2 Specimen sligh tly ARTERIAL (2) (BEAKER) hemoly zed (test code = 2874) Room Attendant ID - DBOXYGEN SATURATION, [id number] 21:59:28 Test Item Value Reference Range Interpretation Comments O2 SATURATION (MEASURED) (BEAKER) 60.0 % (test code = 1455) BLOOD GAS, [id number] 21:59:23 Test Item Value Reference Range Interpretation Comments PH ARTERIAL (BEAKER) (test code = 7.37 7.35-7.45 383) PCO2 ARTERIAL (BEAKER) (test code 29 mm Hg 35-45 L = 384) PO2 ARTERIAL (BEAKER) (test code 103 mm Hg 80-90 H = 385) O2 SATURATION ARTERIAL (BEAKER) 97.9 % 96.0-97.0 H (test code = 386) HCO3 ARTERIAL (BEAKER) (test code 16 mmol/L 21-29 L = 388) BASE EXCESS ARTERIAL (BEAKER) -8.2 mmol/L -2.0-3.0 L (test code = 387) PATIENT TEMPERATURE (BEAKER) 35.6 (test code = 1818) FIO2 (BEAKER) (test code = 1819) 21.0 RAD, CHEST, 1 VIEW, NON [id number] 21:59:00Reason for exam:- >impellaswanShould this be performed at the bedside?->Yes [facility] : 1960 Sex: MFINAL REPORT RAD, CHEST, 1 VIEW, NON DEPT INDICATION: impellaswan COMPARISON: None FINDINGS: Portable frontal view of the chest. IMPRESSION: Support Lines: Right IJ [place]li catheter tip overlies the right pulmonary artery. Impella device present. Lungs and pleura: There are diffuse pulmonary opacities compatible with pulmonary edema, atelectasis or infection. No pneumo thorax. No large effusion.Heart and mediastinum: Magnified by technique with suggestion of cardiomegaly. Additional findings: None. Signed: Benny Velasquez MDReport Verified Date/Time: 10/23/2021 21:59:50 CBC W/PLT COUNT & AUTO [id number] 21:57:59 Test Item Value Reference Range Interpretation Comments WHITE BLOOD CELL COUNT (BEAKER) 19.1 K/ L 3.5-10.5 H (test code = 775) RED BLOOD CELL COUNT (BEAKER) 3.30 M/ L 4.63-6.08 L (test code = 761) HEMOGLOBIN (BEAKER) (test code = 10.4 GM/DL 13.7-17.5 L 410) HEMATOCRIT (BEAKER) (test code = 31.9 % 40.1-51.0 L 411) MEAN CORPUSCULAR VOLUME (BEAKER) 96.7 fL 79.0-92.2 H (test code = 753) MEAN CORPUSCULAR HEMOGLOBIN 31.5 pg 25.7-32.2 (BEAKER) (test code = 751) MEAN CORPUSCULAR HEMOGLOBIN CONC 32.6 GM/DL 32.3-36.5 (BEAKER) (test code = 752) RED CELL DISTRIBUTION WIDTH 13.0 % 11.6-14.4 (BEAKER) (test code = 412) PLATELET COUNT (BEAKER) (test 449 K/CU MM 150-450 code = 756) MEAN PLATELET VOLUME (BEAKER) 9.6 fL 9.4-12.4 (test code = 754) NUCLEATED RED BLOOD CELLS 0 /100 WBC 0-0 (BEAKER) (test code = 413) NEUTROPHILS RELATIVE PERCENT 80 % (BEAKER) (test code = 429) LYMPHOCYTES RELATIVE PERCENT 9 % (BEAKER) (test code = 430) MONOCYTES RELATIVE PERCENT 9 % (BEAKER) (test code = 431) EOSINOPHILS RELATIVE PERCENT 0 % (BEAKER) (test code = 432) BASOPHILS RELATIVE PERCENT 0 % (BEAKER) (test code = 437) NEUTROPHILS ABSOLUTE COUNT 15.24 K/ L 1.78-5.38 H (BEAKER) (test code = 670) LYMPHOCYTES ABSOLUTE COUNT 1.66 K/ L 1.32-3.57 (BEAKER) (test code = 414) MONOCYTES ABSOLUTE COUNT (BEAKER) 1.72 K/ L 0.30-0.82 H (test code = 415) EOSINOPHILS ABSOLUTE COUNT 0.01 K/ L 0.04-0.54 L (BEAKER) (test code = 416) BASOPHILS ABSOLUTE COUNT (BEAKER) 0.06 K/ L 0.01-0.08 (test code = 417) IMMATURE GRANULOCYTES-RELATIVE 2 % 0-1 H PERCENT (BEAKER) (test code = 2801) BLOOD GAS, [id number] 20:26:48 Test Item Value Reference Range Interpretation Comments PH ARTERIAL (BEAKER) (test code = 7.34 7.35-7.45 L 383) PCO2 ARTERIAL (BEAKER) (test code 33 mm Hg 35-45 L = 384) PO2 ARTERIAL (BEAKER) (test code 80 mm Hg 80-90 = 385) O2 SATURATION ARTERIAL (BEAKER) 95.9 % 96.0-97.0 L (test code = 386) HCO3 ARTERIAL (BEAKER) (test code 17 mmol/L 21-29 L = 388) BASE EXCESS ARTERIAL (BEAKER) -7.9 mmol/L -2.0-3.0 L (test code = 387) PATIENT TEMPERATURE (BEAKER) 36.0 (test code = 1818) FIO2 (BEAKER) (test code = 1819) 28.0 LACTATE DEHYDROGENASE (LDH)2021-10-23 19:53:11 Test Item Value Reference Range Interpretation Comments LACTATE DEHYDROGENASE (BEAKER) (test 434 U/L 125-220 H code = 635) Room Attendant ID - DBBLOOD GAS, [id number] 19:52:03 Test Item Value Reference Range Interpretation Comments PH ARTERIAL (BEAKER) (test code = 7.32 7.35-7.45 L 383) PCO2 ARTERIAL (BEAKER) (test code 34 mm Hg 35-45 L = 384) PO2 ARTERIAL (BEAKER) (test code 209 mm Hg 80-90 H = 385) O2 SATURATION ARTERIAL (BEAKER) 99.3 % 96.0-97.0 H (test code = 386) HCO3 ARTERIAL (BEAKER) (test code 17 mmol/L 21-29 L = 388) BASE EXCESS ARTERIAL (BEAKER) -8.4 mmol/L -2.0-3.0 L (test code = 387) PATIENT TEMPERATURE (BEAKER) 37.0 (test code = 1818) FIO2 (BEAKER) (test code = 1819) 100.0 STAT-LAB IONIZED [id number] 19:50:53 Test Item Value Reference Range Interpretation Comments FILTER IONIZED CALCIUM (BEAKER) 1.05 nnol/L (test code = 1854) Reference Range: No NormalsPROTHROMBIN [id number] 19:24:07 Test Item Value Reference Range Interpretation Comments PROTIME (BEAKER) 22.4 seconds 11.9-14.2 H (test code = 759) INR (BEAKER) (test 1.99 See_Comment [Automat ed message] code = 370) The system [employer] generated this result transmitted ref erence range: <=5.90. The reference range was not used to int erpret this result as normal/abnormal . RECOMMENDED COUMADIN/WARFARIN INR THERAPY RANGESSTANDARD DOSE: 2.0 - 3.0 Includes: PROPHYLAXIS forvenous thrombosis, systemic embolization; TREATMENT for venous thrombosis and/or pulmonary embolus.HIGH RISK: Target INR is 2.5-3.5 for patients with mechanical heart valves.B-TYPE NATRIURETIC FACTOR (BNP)2021-10-23 19:20:08 Test Item Value Reference Range Interpretation Comments B-TYPE NATRIURETIC PEPTIDE (BEAKER) 345 pg/mL 0-100 H (test code = 700) Room Attendant ID - DBCOMPREHENSIVE METABOLIC [id number] 19:16:09 Test Item Value Reference Range Interpretation Comments TOTAL PROTEIN 6.1 gm/dL 6.0-8.3 (BEAKER) (test code = 770) ALBUMIN (BEAKER) 3.2 g/dL 3.5-5.0 L (test code = 1145) ALKALINE PHOSPHATASE 108 U/L 40-150 (BEAKER) (test code = 346) BILIRUBIN TOTAL 0.6 mg/dL 0.2-1.2 (BEAKER) (test code = 377) SODIUM (BEAKER) (test 132 meq/L 136-145 L code = 381) POTASSIUM (BEAKER) 5.4 meq/L 3.5-5.1 H (test code = 379) CHLORIDE (BEAKER) 104 meq/L 98-107 (test code = 382) CO2 (BEAKER) (test 17 meq/L 22-29 L code = 355) BLOOD UREA NITROGEN 36 mg/dL 7-21 H (BEAKER) (test code = 354) CREATININE (BEAKER) 2.60 mg/dL 0.57-1.25 H (test code = 358) GLUCOSE RANDOM 339 mg/dL 70-105 H (BEAKER) (test code = 652) CALCIUM (BEAKER) 7.9 mg/dL 8.4-10.2 L (test code = 697) AST (SGOT) (BEAKER) 84 U/L 5-34 H (test code = 353) ALT (SGPT) (BEAKER) 60 U/L 6-55 H (test code = 347) EGFR (BEAKER) (test 25 mL/min/1.73 ESTIMA LIVAN GFR IS code = 1092) sq m NOT ACCURATE CREATININE CLEARANCE IN PREDICTING GLOMERULAR FILTRATION RATE . ESTIMATED GFR I S NOT APPLICABLE FOR DIALYSIS PATIEN TS. Room Attendant ID - DBCBC W/PLT COUNT & AUTO [id number] 19:14:01 Test Item Value Reference Range Interpretation Comments WHITE BLOOD CELL COUNT (BEAKER) 10.8 K/ L 3.5-10.5 H (test code = 775) RED BLOOD CELL COUNT (BEAKER) 4.76 M/ L 4.63-6.08 (test code = 761) HEMOGLOBIN (BEAKER) (test code = 14.8 GM/DL 13.7-17.5 410) HEMATOCRIT (BEAKER) (test code = 46.9 % 40.1-51.0 411) MEAN CORPUSCULAR VOLUME (BEAKER) 98.5 fL 79.0-92.2 H (test code = 753) MEAN CORPUSCULAR HEMOGLOBIN 31.1 pg 25.7-32.2 (BEAKER) (test code = 751) MEAN CORPUSCULAR HEMOGLOBIN CONC 31.6 GM/DL 32.3-36.5 L (BEAKER) (test code = 752) RED CELL DISTRIBUTION WIDTH 13.0 % 11.6-14.4 (BEAKER) (test code = 412) PLATELET COUNT (BEAKER) (test 311 K/CU MM 150-450 code = 756) MEAN PLATELET VOLUME (BEAKER) 9.8 fL 9.4-12.4 (test code = 754) NUCLEATED RED BLOOD CELLS 0 /100 WBC 0-0 (BEAKER) (test code = 413) NEUTROPHILS RELATIVE PERCENT 81 % (BEAKER) (test code = 429) LYMPHOCYTES RELATIVE PERCENT 8 % (BEAKER) (test code = 430) MONOCYTES RELATIVE PERCENT 9 % (BEAKER) (test code = 431) EOSINOPHILS RELATIVE PERCENT 0 % (BEAKER) (test code = 432) BASOPHILS RELATIVE PERCENT 1 % (BEAKER) (test code = 437) NEUTROPHILS ABSOLUTE COUNT 8.79 K/ L 1.78-5.38 H (BEAKER) (test code = 670) LYMPHOCYTES ABSOLUTE COUNT 0.85 K/ L 1.32-3.57 L (BEAKER) (test code = 414) MONOCYTES ABSOLUTE COUNT (BEAKER) 0.93 K/ L 0.30-0.82 H (test code = 415) EOSINOPHILS ABSOLUTE COUNT 0.01 K/ L 0.04-0.54 L (BEAKER) (test code = 416) BASOPHILS ABSOLUTE COUNT (BEAKER) 0.05 K/ L 0.01-0.08 (test code = 417) IMMATURE GRANULOCYTES-RELATIVE 2 % 0-1 H PERCENT (BEAKER) (test code = 2801) [id number] 19:08:07 Test Item Value Reference Range Interpretation Comments ACTIVATED CLOTTING TIME 243 sec : 74 -137 seconds, (BEAKER) (test code = Norm ne: TESTED AT 441) [facility] [address], [address]: Room Attendant/Techni stephanie ID = [id number] for DARLINE KEITA
[2021-12-10 09:17] LABS: Absolute Lymphocytes (CBC) 1.8 K/uL (0.7-4.9); Hematocrit 36.7 % (39.6-49.0); Lymphocytes % 19.7 % (15.3-44.8); MPV 8.1 fL (7.6-11.3); RBC Red Blood Cell Count 3.95 M/uL (4.33-5.43)
[2021-12-10 09:21] LABS: Protime INR 1.33
--- NOTE | 2021-12-10 09:32 | RAD REPORT ---
EXAM DESCRIPTION: RAD - Chest Single View - 12/10/2021 9:20 am CLINICAL HISTORY: DYSPNEA COMPARISON: <Comparisons> FINDINGS: Lines: None. Lungs: Widespread pulmonary opacities. Pleural: No significant pleural effusions or pneumothorax. Cardiac: Cardiomegaly Bones: No acute fractures. Sternotomy with fractured sternotomy wires. Other: IMPRESSION: Widespread pulmonary opacities likely reflecting pulmonary edema.
[2021-12-10 09:35] LABS: SARS-COV-2 RT PCR NEGATIVE (NEGATIVE)
[2021-12-10] MEDS ORDERED: FUROSEMIDE 40 MG/4 ML VIAL ONE (10:03)
[2021-12-10 10:07] LABS: Albumin 2.8 g/dL (3.4-5.0); Bilirubin Direct 0.1 mg/dL (0-0.2); Bilirubin Total 0.3 mg/dL (0.2-1.0); Protein, Total 7.5 g/dL (6.4-8.2); Troponin High Sensitivity 48.5 pg/mL (<58.9)
[2021-12-10 10:22] LABS: Potassium 3.8 mmol/L (3.5-5.1)
--- NOTE | 2021-12-10 10:50 | RAD REPORT ---
EXAM DESCRIPTION: CT - Chest For Pe Angio - 12/10/2021 10:42 am CLINICAL HISTORY: dyspnea, + DVT COMPARISON: No comparisons FINDINGS: Chest Wall: No suspicious thyroid nodules or pathologic lymphadenopathy. Lungs: Bilateral interlobular septal thickening and ground-glass opacities . Pleura: Moderate right and small left pleural effusion. Mediastinum/anuja: No pathologic lymphadenopathy. Pulmonary arteries/Aorta: No filling defect identified. No aortic aneurysm. Heart: No significant pericardial effusion. Cardiomegaly. Multi-vessel coronary artery disease. Upper abdomen: No acute abnormality. Bones: No acute abnormality. Sternotomy with mild sternal dehiscence. All CT scans are performed using dose optimization technique as appropriate and may include automated exposure control or mA/KV adjustment according to patient size. IMPRESSION: Negative for pulmonary embolism. Pulmonary edema with moderate right and small left pleu ral effusions . .
--- NOTE | 2021-12-10 11:09 | EDPHYS ---
Physician Documentation [facility] Name: Paxton Jordan Age: 61 yrs Sex: Male : 1960 Arrival Date: 12/10/2021 Time: 08:14 Bed 6 Private MD: ED Physician Rodolfo Tabares HPI: 12/10 08:39 This 61 yrs old Male presents to ER via Wheelchair with complaints of Shortness Of rn Breath. 08:39 The patient has shortness of breath at rest, with light activity. Onset: The rn symptoms/episode began/occurred this morning, 4 hour(s) ago. Duration: The symptoms are continuous. The patient's shortness of breath is aggravated by exertion, light activity, supine position, talking, walking, is alleviated by sitting up. Associated signs and symptoms: Pertinent negatives: chest pain, productive cough, fever, hemoptysis. Severity of symptoms: At their worst the symptoms were moderate in the emergency department the symptoms are unchanged. The patient has experienced similar episodes in the past. The patient has been recently seen by a physician:. Pt reports sob for about 4 hours, states has hx of DVT, takes eliquis, also with hx of CHF. + recent admission at [facility] for similar presentation. Has IVC filter but told "all used up". Denies hx of PE in past. NO trauma. No chest pain. . Historical: - Allergies: 08:23 No Known Allergies; jd3 - Home Meds: 17:43 apixaban oral [Active]; Bumetanide Oral [Active]; citalopram oral [Active]; Metoprolol vg1 Tartrate Oral [Active]; polyethylene glycol 3350 oral [Active]; tramadol Oral [Active]; Aspirin Oral [Active]; Bupropion Oral [Active]; Cyclobenzaprine Oral [Active]; docusate sodium Oral [Active]; Insulin: Humulin 70/30 Sub-Q [Active]; levothyroxine oral [Active]; Oxycodone-Acetaminophen Oral [Active]; pantoprazole oral [Active]; Potassium Chloride Oral [Active]; quetiapine oral [Active]; Simvastatin Oral [Active]; tamsulosin oral [Active]; testosterone cypionate [Active]; - PMHx: 17:43 Diabetes mellitus; Congestive heart failure; blood clots; vg1 - PSHx: 17:43 Stented artery; Coronary artery bypass graft; vg1 - Immunization history:: Adult Immunizations up to date, Client reports receiving the 2nd dose of the Covid vaccine. - Social history:: Smoking status: Patient/guardian denies using tobacco, but has a distant history of tobacco abuse. - Family history:: not pertinent. - Hospitalizations: : No recent hospitalization is reported. ROS: 08:39 Constitutional: Negative for fever, chills, and weight loss, Eyes: Negative for injury, rn pain, redness, and discharge, Neck: Negative for injury, pain, and swelling, Cardiovascular: Negative for chest pain, + edema Respiratory: + sob Abdomen/GI: Negative for abdominal pain, nausea, vomiting, diarrhea, and constipation, : Negative for injury, bleeding, discharge, and swelling, MS/Extremity: Negative for injury and deformity, Skin: Negative for injury, rash, and discoloration, Neuro: Negative for headache, weakness, numbness, tingling, and seizure. Exam: 08:39 Constitutional: This is a well developed, well nourished patient who is awake, alert, rn + moderate tachypnea Head/Face: Normocephalic, atraumatic. ENT: NO stridor Cardiovascular: Regular rate, irregular rhythm. No pulse deficits. Respiratory: + moderate tachypnea, + diminished breath sounds at bases. Abdomen/GI: soft, non-tender Skin: Warm, dry, no cyanosis MS/ Extremity: Pulses equal, no cyanosis. Neurovascular intact. Full, normal range of motion. Equal circumference. 2+ pitting edema bilateral lower ext Neuro: Awake and alert, GCS 15 Vital Signs: 08:23 BP 103 / 74; Pulse 79; Resp 19 S; Temp 97.5(TE); Pulse Ox 100% on R/A; Weight 106.59 kg jd3 (R); Height 6 ft. 0 in. (182.88 cm) (R); Pain 2/10; 08:38 BP 102 / 70; Pulse 82; Resp 27; Pulse Ox 97% on R/A; vg1 09:00 BP 110 / 75; Pulse 81; Resp 25; Pulse Ox 100% on R/A; vg1 09:46 BP 112 / 78; Pulse 82; Resp 24; Pulse Ox 100% on 2 lpm NC; Pain 0/10; jh6 11:00 BP 98 / 73; Pulse 84; Resp 24; Pulse Ox 100% on BiPAP; Pain 0/10; jh6 12:00 BP 110 / 83; Pulse 80; Resp 26; Pulse Ox 100% on BiPAP; Pain 0/10; jh6 08:23 Body Mass Index 31.87 (106.59 kg, 182.88 cm) jd3 MDM: 08:22 Patient medically screened. rn 08:43 ED course: Sister kraig has been weighing patient and no significant weight gain. rn Compliant with diuretics. Compliant with anticoagulants. . 11:00 Differential diagnosis: CHF exacerbation, Myocardial Infarction pneumonia, Pneumothorax rn pulmonary edema, Pulmonary Embolism. Data reviewed: vital signs, nurses notes, lab test result(s), EKG, radiologic studies, CT scan, plain films, and as a result, I will admit patient. Counseling: I had a detailed discussion with the patient and/or guardian regarding: the historical points, exam findings, and any diagnostic results supporting the discharge/admit diagnosis, lab results, radiology results, the need for further work-up and treatment in the hospital. Response to treatment: There is no appreciated change of the patient's symptoms at this time, and as a result, I will admit patient. Admission orders: after a detailed discussion of the patient's condition and case, the admit orders are written by me. 11:44 ED course: Dr. Torres requests ICU admission. rn 12/10 08:36 Order name: BMP rn 12/10 08:36 Order name: Blood Culture Adult (2) rn 12/10 08:36 Order name: CBC with Diff; Complete Time: 09:51 rn 12/10 08:36 Order name: Hepatic Function; Complete Time: 10:42 12/10 08:36 Order name: NT PRO-BNP; Complete Time: 10:42 12/10 08:36 Order name: PT-INR; Complete Time: 09:51 rn 12/10 08:36 Order name: Ptt, Activated; Complete Time: 09:51 rn 12/10 08:36 Order name: COVID-19/FLU A+B (Document "Date of Onset" if Symptomatic); Complete Time: rn 12/10 08:36 Order name: Procalcitonin rn 12/10 08:36 Order name: Troponin High Sensitivity; Complete Time: 10:42 rn 12/10 08:37 Order name: Basic Metabolic Panel; Complete Time: 10:42 EDWI 12/10 08:37 Order name: Blood Culture EDWI 12/10 13:30 Order name: Glucose, Ancillary Testing EDWI 12/10 16:18 Order name: Magnesium EDWI 12/10 08:36 Order name: CT Chest For PE Angio; Complete Time: 10:52 rn 12/10 08:36 Order name: XRAY CXR (1 view); Complete Time: 09:51 rn 12/10 08:36 Order name: EKG; Complete Time: 08:37 rn 12/10 08:36 Order name: Cardiac monitoring; Complete Time: 08:43 rn 12/10 08:36 Order name: EKG - Nurse/Tech; Complete Time: 08:43 rn 12/10 08:36 Order name: IV Saline Lock; Complete Time: 08:43 rn 12/10 08:36 Order name: Labs collected and sent; Complete Time: 08:43 rn 12/10 08:36 Order name: O2 Per Protocol; Complete Time: 08:43 rn 12/10 08:36 Order name: O2 Sat Monitoring; Complete Time: 08:43 rn 12/10 11:00 Order name: BIPAP rn Administered Medications: 10:03 Drug: Lasix (furosemide) 20 mg Route: IVP; Site: right forearm; 6 11:09 Follow up: Response: No adverse reaction vg1 Disposition Summary: 12/10/21 11:09 Hospitalization Ordered Hospitalization Status: Inpatient Admission rn Provider: Prince Brian rn Condition: Stable rn Problem: an ongoing problem rn Symptoms: have improved rn Bed/Room Type: Standard rn Location: Telemetry/MedSurg (Inpatient)(12/10/21 19:20) cg Room Assignment: [facility](12/10/21 19:22) cg Diagnosis - Systolic (congestive) heart failure rn - Pleural effusion, not elsewhere classified rn - Dyspnea, unspecified rn - Hypoxemia rn Forms: - Medication Reconciliation Form rn - SBAR form rn Signatures: Dispatcher [employer] EDMS Rodolfo Tabares MD MD rn Garcia, Cindy RN Geovani Howell RN RN Jose Daniel Proctor, RN RN Anna Marie Christine Victoria, RN RN dale1 Deborah Huber cs9 Grace Sandoval RN RN jh6 Corrections: (The following items were deleted from the chart) 11:44 11:09 Telemetry/MedSurg (Inpatient) rn rn 11:44 11:09 rn rn 14:47 11:44 Intensive Care Unit rn jacobo 14:47 11:44 rn jacobo 18:20 14:47 [facility] ER HOLD eb cs9 18:20 14:47 ERHOLD- eb cs9 18:41 18:20 213 cs9 ja1 18:53 18:20 Telemetry/MedSurg (Inpatient) cs9 cs9 18:53 18:41 ja1 cs9 19:20 18:53 [facility] ER HOLD cs9 cg 19:20 18:53 ERHOLD- cs9 cg 19:22 19:20 cg cg
--- NOTE | 2021-12-10 11:09 | ER ---
Nurse's Notes [facility] Name: Paxton Jordan Age: 61 yrs Sex: Male : 1960 Arrival Date: 12/10/2021 Time: 08:14 Bed 6 Private MD: Diagnosis: Systolic (congestive) heart failure;Pleural effusion, not elsewhere classified;Dyspnea, unspecified;Hypoxemia Presentation: 12/10 08:21 Chief complaint: Patient states: "I woke up at 0420 and was short of breath." sister: " jd3 he was just discharged from [place] after bonnie anamaria flighted to [place] with lower ejection fractures and blood clots in his legs.". Coronavirus screen: At this time, the client does not indicate any symptoms associated with coronavirus-19. Ebola Screen: No symptoms or risks identified at this time. Initial Sepsis Screen: Does the patient meet any 2 criteria? No. Patient's initial sepsis screen is negative. Does the patient have a suspected source of infection? No. Patient's initial sepsis screen is negative. Risk Assessment: Do you want to hurt yourself or someone else? Patient reports no desire to harm self or others. Onset of symptoms was December 10, 2021. 08:21 Method Of Arrival: Wheelchair jd3 08:21 Acuity: MITESH 2 jd3 Historical: - Allergies: 08:23 No Known Allergies; jd3 - Home Meds: 17:43 apixaban oral [Active]; Bumetanide Oral [Active]; citalopram oral [Active]; Metoprolol vg1 Tartrate Oral [Active]; polyethylene glycol 3350 oral [Active]; tramadol Oral [Active]; Aspirin Oral [Active]; Bupropion Oral [Active]; Cyclobenzaprine Oral [Active]; docusate sodium Oral [Active]; Insulin: Humulin 70/30 Sub-Q [Active]; levothyroxine oral [Active]; Oxycodone-Acetaminophen Oral [Active]; pantoprazole oral [Active]; Potassium Chloride Oral [Active]; quetiapine oral [Active]; Simvastatin Oral [Active]; tamsulosin oral [Active]; testosterone cypionate [Active]; - PMHx: 17:43 Diabetes mellitus; Congestive heart failure; blood clots; vg1 - PSHx: 17:43 Stented artery; Coronary artery bypass graft; vg1 - Immunization history:: Adult Immunizations up to date, Client reports receiving the 2nd dose of the Covid vaccine. - Social history:: Smoking status: Patient/guardian denies using tobacco, but has a distant history of tobacco abuse. - Family history:: not pertinent. - Hospitalizations: : No recent hospitalization is reported. Screenin:38 Abuse screen: Denies threats or abuse. Nutritional screening: No deficits noted. vg1 Tuberculosis screening: No symptoms or risk factors identified. Fall Risk No fall in past 12 months (0 pts). No secondary diagnosis (0 pts). IV access (20 points). Ambulatory Aid- None/Bed Rest/Nurse Assist (0 pts). Gait- Normal/Bed Rest/Wheelchair (0 pts) Mental Status- Oriented to own ability (0 pts). Total Wolfe Fall Scale indicates No Risk (0-24 pts). Assessment: 08:36 General: Appears in no apparent distress. uncomfortable, Behavior is calm, cooperative. vg1 Pain: Complains of pain in Mid back and lower back Pain currently is 3 out of 10 on a pain scale. Neuro: Level of Consciousness is awake, alert, obeys commands, Oriented to person, place, time, situation. Cardiovascular: Denies chest pain, Patient's skin is warm and dry. Edema pitting to left foot and right foot. Respiratory: Reports shortness of breath at rest on exertion Airway is patent Respiratory effort is even, labored, Respiratory pattern is tachypnea Breath sounds are clear bilaterally. GI: Patient currently denies nausea, vomiting. : No signs and/or symptoms were reported regarding the genitourinary system. EENT: No signs and/or symptoms were reported regarding the EENT system. Derm: Skin is intact, Skin is pink, warm \\T\\ dry. Musculoskeletal: Circulation, motion, and sensation intact. 09:47 Reassessment: No changes from previously documented assessment. Patient is alert, jh6 oriented x 3, equal unlabored respirations, skin warm/dry/pink. Patient denies pain at this time. 10:45 Reassessment: Patient appears in no apparent distress at this time. No changes from vg1 previously documented assessment. Patient and/or family updated on plan of care and expected duration. Pain level reassessed. Patient is alert, oriented x 3, equal unlabored respirations, skin warm/dry/pink. 11:45 Reassessment: Patient and/or family updated on plan of care and expected duration. Pain jh6 level reassessed. Patient is alert, oriented x 3, equal unlabored respirations, skin warm/dry/pink. PT ON BIPAP AND STATES THAT IT HAS HELPED A LITTLE ON BEING ABLE TO TAKE A DEEP BREATH. SISTER AT BEDSIDE. Patient denies pain at this time. Vital Signs: 08:23 BP 103 / 74; Pulse 79; Resp 19 S; Temp 97.5(TE); Pulse Ox 100% on R/A; Weight 106.59 kg jd3 (R); Height 6 ft. 0 in. (182.88 cm) (R); Pain 2/10; 08:38 BP 102 / 70; Pulse 82; Resp 27; Pulse Ox 97% on R/A; vg1 09:00 BP 110 / 75; Pulse 81; Resp 25; Pulse Ox 100% on R/A; vg1 09:46 BP 112 / 78; Pulse 82; Resp 24; Pulse Ox 100% on 2 lpm NC; Pain 0/10; jh6 11:00 BP 98 / 73; Pulse 84; Resp 24; Pulse Ox 100% on BiPAP; Pain 0/10; jh6 12:00 BP 110 / 83; Pulse 80; Resp 26; Pulse Ox 100% on BiPAP; Pain 0/10; jh6 08:23 Body Mass Index 31.87 (106.59 kg, 182.88 cm) jd3 ED Course: 08:14 Patient arrived in ED. as 08:22 Rodolfo Tabares MD is Attending Physician. rn 08:23 Triage completed. jd3 08:24 Arm band placed on. jd3 08:27 Silvia Alex RN is Primary Nurse. vg1 08:38 Patient has correct armband on for positive identification. Bed in low position. Call vg1 light in reach. Side rails up X 1. Adult w/ patient. 09:14 Inserted saline lock: 22 gauge in right forearm, using aseptic technique. ,using vg1 aseptic technique. Completed by Janeen BUI Blood collected. 09:20 XRAY CXR (1 view) In Process Unspecified. EDMS 10:[address] jh6 10:41 CT Chest For PE Angio In Process Unspecified. EDMS 11:08 Prince Torres MD is Hospitalizing Provider. rn 13:19 No provider procedures requiring assistance completed. Patient admitted, IV remains in vg1 place. 19:02 Primary Nurse role handed off by Silvia Alex, RN cs9 Administered Medications: 10:03 Drug: Lasix (furosemide) 20 mg Route: IVP; Site: right forearm; 6 11:09 Follow up: Response: No adverse reaction vg1 Output: 12:12 Urine: 600ml (Voided); Total: 600ml. jh6 Outcome: 11:09 Decision to Hospitalize by Provider. rn 13:19 Admitted to ER Hold. Please see [facility] for further documentation. vg1 13:19 Condition: good 13:19 Instructed on the need for admit. 20:40 Patient left the ED. as6 Signatures: Dispatcher [employer] EDMS Michelle Gupta Roman, MD MD rn Davies, Jonathon, RN RN jd3 Silvia Alex, RN RN vg1 Deborah Huber9 Johnny Wright RN RN as6 Grace Sandoval RN RN jh6
--- NOTE | 2021-12-10 12:03 | P.HP ---
Certification for Inpatient Patient admitted to: Inpatient With expected LOS: >2 Midnights Practitioner: I am a practitioner with admitting privileges, knowledge of patient current condition, hospital course, and medical plan of care. Services: Services provided to patient in accordance with Admission requirements found in Title 42 Section 412.3 of the Code of Federal Regulations Patient History Date of Service: 12/10/21 Reason for admission: Shortness of breath History of Present Illness: Patient is a 61-year-old male with a known past medical history of hypertension, chronic systolic CHF and DVTs currently on Eliquis. He presented to the ER complaining of an acute onset of shortness of breath which started the morning of admission. Patient has been in and out of hospital since October 07. Was recently seen here 2 weeks ago in this ER when she had to be life flighted to [facility] in [place] for higher level of care. As per chart review, he was found to have and his EKG was concerning for ischemic changes suggestive of triple-vessel disease versus left main disease. Sister, who is also a former nurse, states that patient required Impella device during his hospitalization. His ejection fraction at the time was approximately 35%. Since his discharge, his mobility status and functional status have not improved despite being compliant with his CHF regimen and having home health. There was a concern for low blood pressure. Therefore, his diuresis was carried out gently. He is taking Bumex 1 mg twice daily. On the morning of admission, he woke up feeling short of breath. He called his home health agency and was instructed to present to the ER. In the emergency department his BNP was roughly 11,000. He has evidence of pulmonary edema on chest imaging. Allergies No Known Allergies Allergy (Unverified 10/07/21 03:29) Home Medications: Aspirin [Aspirin EC 81 MG] 81 mg PO BEDTIME 10/07/21 Citalopram [Celexa*] 40 mg PO DAILY 10/07/21 Cyclobenzaprine [Flexeril*] 10 mg PO TID PRN 10/07/21 Esomeprazole Magnesium [Nexium 24Hr] 20 mg PO DAILY 10/07/21 Fish Oil/Dha/Epa [Fish Oil 1,200 mg Fish Oil] 2,400 mg PO BID 10/07/21 Insulin Glargine,Hum.rec.anlog [Toujeo Solostar] 20 unit SQ DAILY 10/07/21 Levothyroxine [Synthroid*] 50 mcg PO [id number] 10/07/21 Lisinopril [Zestril] 10 mg PO BEDTIME 10/07/21 Nitroglycerin 0.4 mg SL SEECOM PRN 10/07/21 Quetiapine [Seroquel*] 150 mg PO BEDTIME 10/07/21 Simvastatin 80 mg PO BEDTIME 10/07/21 Testost Cypionate [Depo-Testosterone*] 0.5 ml IM SEECOM 10/07/21 Bupropion *Xl* [Wellbutrin XL*] 300 mg PO DAILY #30 tab 10/09/21 Carvedilol [Coreg] 12.5 mg PO BID #60 10/09/21 Clopidogrel Bisulfate [Plavix*] 75 mg PO DAILY #30 10/09/21 Insulin NPH Hum/Reg Insulin Hm [Novolin 70-30 100 Unit/ml Vial] 50 unit SQ BID #30 ml 10/09/21 Oxycodone HCl/Acetaminophen [Percocet 5/325 Tab*] 1 tab PO Q6H PRN #20 tab 10/09/21 Docusate Sodium [Dulcolax Stool Softener] 100 mg PO DAILY 10/11/21 Furosemide [Lasix*] 40 mg PO DAILY 10/11/21 Potassium Chloride 20 meq PO Q48H 10/11/21 Apixaban [Eliquis] 5 mg PO SEECOM 30 Days #1 tab.ds.pk 10/12/21 Pantoprazole [Protonix Tab*] 40 mg PO ACB #30 tab 10/20/21 Sulfamethoxazole/Trimethoprim [Bactrim Ds Tablet] 1 each PO DAILY #5 tablet 10/20/21 Tamsulosin [Flomax*] 0.4 mg PO BID #60 cap 10/20/21 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 -: CABG x 5 -: cardiac stents -: IVC filter -: tonsillectomy - Social History Alcohol use: No CD- Drugs: No Caffeine use: Yes Physical Examination - Physical Exam General: Cooperative, Obese, Other (Fatigued) HEENT: Atraumatic, Normocephalic Respiratory: Other (Noninvasively ventilated) Cardiovascular: Regular rate/rhythm, Normal S1 S2, Edema (2+ pitting edema in both lower extremities) Gastrointestinal: Soft and benign, Non-distended - Studies Laboratory Data (last 24 hrs) 12/10/21 08:45: PT 15.3 H, INR 1.33, APTT 29.1 12/10/21 08:45: WBC 8.90, Hgb 12.0 L, Hct 36.7 L, Plt Count 335 12/10/21 08:36: Sodium 139, Potassium 3.8, BUN 24 H, Creatinine 1.46 H, Glucose 131 H, Total Bilirubin 0.3, AST 25, ALT 27, Alkaline Phosphatase 155 H Assessment and Plan - Problems (Diagnosis) (1) Acute on chronic systolic CHF (congestive heart failure) Current Visit: Yes Status: Acute (2) Acute hypoxemic respiratory failure Current Visit: Yes Status: Acute (3) Acute renal failure superimposed on stage 3 chronic kidney disease Current Visit: No Status: Acute Qualifiers: (4) DVT, bilateral lower limbs Current Visit: No Status: Acute Qualifiers: (5) BPH (benign prostatic hyperplasia) Current Visit: No Status: Chronic Qualifiers: (6) CAD (coronary artery disease) Current Visit: No Status: Chronic Qualifiers: (7) T2DM (type 2 diabetes mellitus) Current Visit: No Status: Chronic - Advance Directives Does patient have a Living Will: No Does patient have a Durable POA for Healthcare: No Physician Review Additional Text: Assessment Patient is a 61-year-old male with a known past medical history of coronary disease, hypertension and congestive heart failure and DVTs. He returns to the hospital complaining of acute shortness of breath. Pulmonary embolism was ruled out with a CT angio. He is being admitted for acute on chronic CHF exacerbation. He is currently on BiPAP but still tachypneic. Acute hypoxemic respiratory failure Acute on chronic systolic CHF exacerbation Coronary artery disease Chronic kidney disease Bilateral DVTs of the lower extremities Morbid obesity Plan: Admit to the ICU for continuous BiPAP I will start patient on Bumex 1 mg IV twice daily due to soft BP Resumed home dose of beta blockers, hold ACEi- due to ALESSANDRA Monitor I/O Trend BNP I will place a cardiology and Nephrology consult Resume apixaban GI ppx
[2021-12-10] MEDS ORDERED: NITROGLYCERIN 0.4 MG/TAB SL PRN (13:20)
--- NOTE | 2021-12-10 15:09 | P.CNS ---
Date of Consult: 12/10/21 Reason for Consult: ELEVATED CREATININE Requesting Physician: Prince Layla Torres Chief Complaint: Shortness of breath History of Present Illness: 61-year-old male with past medical history of hypertension, diabetes mellitus, CAD status post recent triple-vessel disease, ischemic cardiomyopathy with recent EF of less than 35%/systolic CHF, chronic hypotension recently discharged after recent hospital stay on low-dose diuretic with low-dose blood pressure regimen presented because of worsening shortness of breath. Noted with pulmonary edema on chest x-ray. CTA done in the emergency room shows no PE. Patient has been started on IV Bumex diuretic now. His blood pressure is borderline with systolic in the low 100s. He was noted on presentation with elevated creatinine of 1.46. Renal consulted for azotemia. He denies any prior history of dialysis use or CKD. No personal family history of kidney problems. No recent NSAID use. Allergies No Known Allergies Allergy (Unverified 10/07/21 03:29) Home Medications: Aspirin [Aspirin EC 81 MG] 81 mg PO BEDTIME 10/07/21 Citalopram [Celexa*] 40 mg PO DAILY 10/07/21 Cyclobenzaprine [Flexeril*] 10 mg PO TID PRN 10/07/21 Esomeprazole Magnesium [Nexium 24Hr] 20 mg PO DAILY 10/07/21 Fish Oil/Dha/Epa [Fish Oil 1,200 mg Fish Oil] 2,400 mg PO BID 10/07/21 Insulin Glargine,Hum.rec.anlog [Toulolitao Solostar] 20 unit SQ DAILY 10/07/21 Levothyroxine [Synthroid*] 50 mcg PO [id number] 10/07/21 Lisinopril [Zestril] 10 mg PO BEDTIME 10/07/21 Nitroglycerin 0.4 mg SL SEECOM PRN 10/07/21 Quetiapine [Seroquel*] 150 mg PO BEDTIME 10/07/21 Simvastatin 80 mg PO BEDTIME 10/07/21 Testost Cypionate [Depo-Testosterone*] 0.5 ml IM SEECOM 10/07/21 Bupropion *Xl* [Wellbutrin XL*] 300 mg PO DAILY #30 tab 10/09/21 Carvedilol [Coreg] 12.5 mg PO BID #60 10/09/21 Clopidogrel Bisulfate [Plavix*] 75 mg PO DAILY #30 10/09/21 Insulin NPH Hum/Reg Insulin Hm [Novolin 70-30 100 Unit/ml Vial] 50 unit SQ BID #30 ml 10/09/21 Oxycodone HCl/Acetaminophen [Percocet 5/325 Tab*] 1 tab PO Q6H PRN #20 tab 10/09/21 Docusate Sodium [Dulcolax Stool Softener] 100 mg PO DAILY 10/11/21 Furosemide [Lasix*] 40 mg PO DAILY 10/11/21 Potassium Chloride 20 meq PO Q48H 10/11/21 Apixaban [Eliquis] 5 mg PO SEECOM 30 Days #1 tab.ds.pk 10/12/21 Pantoprazole [Protonix Tab*] 40 mg PO ACB #30 tab 10/20/21 Sulfamethoxazole/Trimethoprim [Bactrim Ds Tablet] 1 each PO DAILY #5 tablet 10/20/21 Tamsulosin [Flomax*] 0.4 mg PO BID #60 cap 10/20/21 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 -: CABG x 5 -: cardiac stents -: IVC filter -: tonsillectomy - Social History Smoking Status: Current some day smoker Alcohol use: No CD- Drugs: No Caffeine use: Yes Review of Systems 10-point ROS is otherwise unremarkable Physical Examination Laboratory Data (last 24 hrs) 12/10/21 08:45: PT 15.3 H, INR 1.33, APTT 29.1 12/10/21 08:45: WBC 8.90, Hgb 12.0 L, Hct 36.7 L, Plt Count 335 12/10/21 08:36: Sodium 139, Potassium 3.8, BUN 24 H, Creatinine 1.46 H, Glucose 131 H, Total Bilirubin 0.3, AST 25, ALT 27, Alkaline Phosphatase 155 H - Problems (1) CAD (coronary artery disease) Current Visit: No Status: Chronic Qualifiers: (2) T2DM (type 2 diabetes mellitus) Current Visit: No Status: Chronic (3) Acute renal failure superimposed on stage 3 chronic kidney disease Current Visit: No Status: Acute Qualifiers: (4) BPH (benign prostatic hyperplasia) Current Visit: No Status: Chronic Qualifiers: (5) Chronic kidney disease, stage III (moderate) Current Visit: No Status: Acute (6) Acute on chronic systolic CHF (congestive heart failure) Current Visit: Yes Status: Acute Physician Review: Patient Assessed, Agree with Above Assessment and Plan Physician Review Additional Text: Physical examination Generalmiddle-aged male, chronically ill looking, on nasal cannula O2 HEENTPERRLA/EOMI Neckno JVD no carotid bruit Respiratorymoderate bibasilar crepitations, no chest wall tenderness CardiovascularS1-S2 rate and regular GIfull soft bowel sounds positive no organomegaly Extremities2+ pedal edema, no calf tenderness Neuroalert oriented cranial 2-12 grossly intact Labsreviewed Impression #Acute kidney injury on CKD stage IIIbaseline creatinine of 1.3-1.7, currently at 1.46 Status post contrast exposure today Monitor for contrast nephropathy Avoid nephrotoxins Continue to hold MILES/lisinopril Keep MAP optimize -Presumed underlying the cardiorenal syndrome type IV #Acute systolic CHF exacerbationagree with Bumex 1 mg every 12 Switch to Bumex 2 mg p.o. twice daily at discharge May need to add metolazone if low urine output overnight Avoid hypotension Add midodrine 5 mg twice daily to optimize blood pressure to allow for diuresis - may need do trial of Entresto while inpatient but hold for now since contrast exposure today Start fluid restriction to less than 1.2 L/day -Follow intake and output as well as daily weight #Diabetes mellitusstrict glycemic control #Chronic anticoagulationon Xarelto Thank you Dr. Torres for for this consult, will follow along
[2021-12-10] MEDS: METOLAZONE 5 MG TABLET PO SCH (15:30)
[2021-12-10] MEDS: MIDODRINE HCL 5 MG TABLET PO SCH (16:00)
[2021-12-10] MEDS: BUMETANIDE 1 MG/4 ML VIAL IV SCH (17:00)
[2021-12-10] MEDS ORDERED: carvediloL 6.25 MG TAB PO SCH ×2 (21:00)
[2021-12-10] MEDS: TAMSULOSIN 0.4 MG SR CAP PO SCH (21:00)
[2021-12-10 21:11] VITALS: BMI 32.5
[2021-12-10] MEDS: CYCLOBENZAPRINE 10 MG TAB PO PRN (22:35)
[2021-12-10] MEDS: QUETIAPINE 100MG TAB PO SCH (22:37)
[2021-12-10] MEDS: ATORVASTATIN 40 MG TAB PO SCH (22:37)
[2021-12-10] MEDS: ASPIRIN EC 81 MG TAB PO SCH (22:37)
[2021-12-10] MEDS: DOCOSAHEXANOIC AC/EPA 1000 MG PO SCH (22:38)
[2021-12-10] MEDS: APIXABAN 5 MG TABLET PO SCH (22:40)
[2021-12-11] MEDS: MIDODRINE HCL 5 MG TABLET PO SCH ×3 (00:06→16:39)
[2021-12-11 06:39] LABS: Albumin 2.7 g/dL (3.4-5.0); Bilirubin Total 0.6 mg/dL (0.2-1.0); Potassium 3.3 mmol/L (3.5-5.1); Protein, Total 6.9 g/dL (6.4-8.2)
[2021-12-11] MEDS: LEVOTHYROXINE SOD 0.05 MG TABLET PO SCH (06:51)
[2021-12-11] MEDS: METOLAZONE 5 MG TABLET PO SCH (08:26)
[2021-12-11] MEDS: DOCOSAHEXANOIC AC/EPA 1000 MG PO SCH ×2 (08:27→21:57)
[2021-12-11] MEDS: CITALOPRAM 10 MG TABLET PO SCH (08:27)
[2021-12-11] MEDS: DOCUSATE NA 100 MG CAP PO SCH (08:27)
[2021-12-11] MEDS: CLOPIDOGREL 75 MG TABLET PO SCH (08:27)
[2021-12-11] MEDS: TAMSULOSIN 0.4 MG SR CAP PO SCH ×2 (08:27→21:57)
[2021-12-11] MEDS: PANTOPRAZOLE 40MG TABLET PO SCH (08:27)
[2021-12-11] MEDS: BUPROPION HCL XL 150 MG TAB PO SCH (08:27)
[2021-12-11] MEDS: APIXABAN 5 MG TABLET PO SCH ×2 (08:27→21:57)
[2021-12-11] MEDS: carvediloL 3.125 MG TAB PO SCH ×2 (08:28→21:57)
[2021-12-11] MEDS: BUMETANIDE 1 MG/4 ML VIAL IV SCH (08:40)
[2021-12-11] MEDS ORDERED: ESOMEPRAZOLE MAGNESIUM 20 MG PO SCH (09:00)
--- NOTE | 2021-12-11 09:25 | EKG ---
Test Date: 2021-12-10 Test Time: 08:35:33 Staking Engineer: PHUONG MEASUREMENT RESULTS: Intervals: Rate: 82 WV: 240 QRSD: 114 QT: 410 QTc: 479 [place]: P: 91 WV: 240 QRS: 134 T: 8 INTERPRETIVE STATEMENTS: Sinus rhythm with 1st degree AV block with premature atrial complexes Right axis deviation Pulmonary disease pattern Possible Right ventricular hypertrophy ST & T wave abnormality, consider inferolateral ischemia Prolonged QT Abnormal ECG Compared to ECG 10/23/2021 11:22:10 Atrial premature complex(es) now present Electronically Signed On 12-11-21 09:24:07 SOUND PRINTER by Murray Gastelum
--- NOTE | 2021-12-11 11:31 | P.PN ---
Subjective Date of Service: 12/11/21 Chief Complaint: Shortness of breath Subjective: Improving (Patient is diuresing well. Requiring BIPAP at bedtime) Physical Examination - Vital Signs Temperature: 97.4 F Blood Pressure: 100/66 Pulse: 71 Respirations: 28 Pulse Ox (%): 96 - Physical Exam General: In no apparent distress, Cooperative, Obese HEENT: Atraumatic, Normocephalic Respiratory: Other (Breathing unlaboured BIPAP) Cardiovascular: Regular rate/rhythm, Normal S1 S2, Edema Neurological: Normal speech, Normal affect - Studies Laboratory Data (last 24 hrs) 12/10/21 08:45: Magnesium 1.8 Microbiology Data (last 24 hrs): 12/10/21 08:50 Blood - Blood Anaerobic Blood Culture - Final Assessment And Plan - Current Problems (Diagnosis) (1) Acute on chronic systolic CHF (congestive heart failure) Current Visit: Yes Status: Acute (2) Acute hypoxemic respiratory failure Current Visit: Yes Status: Acute (3) Acute renal failure superimposed on stage 3 chronic kidney disease Current Visit: No Status: Acute Qualifiers: (4) DVT, bilateral lower limbs Current Visit: No Status: Acute Qualifiers: (5) BPH (benign prostatic hyperplasia) Current Visit: No Status: Chronic Qualifiers: (6) CAD (coronary artery disease) Current Visit: No Status: Chronic Qualifiers: (7) T2DM (type 2 diabetes mellitus) Current Visit: No Status: Chronic Physician Review: Patient Assessed, Agree with Above Assessment and Plan Physician Review Additional Text: Assessment Patient is a 61-year-old male with a known past medical history of coronary disease, hypertension and congestive heart failure and DVTs. He returns to the hospital complaining of acute shortness of breath. Pulmonary e mbolism was ruled out with a CT angio. He is being admitted for acute on chronic CHF exacerbation. He is currently on BiPAP but still tachypneic. Acute hypoxemic respiratory failure Acute on chronic systolic CHF exacerbation - Coronary artery disease Chronic kidney disease Bilateral DVTs of the lower extremities Morbid obesity Plan: Patient is improving Continue supplemental O2, alternate with BIPAP Continue Bumex 1 mg IV BID and metolazone Net (-). Continue monitoring I/O Continue metoprolol Continue apixaban GI ppx Patient will need follow up with his textile knitter Dr. Michaels for AICD. Last LVEF reportedly 35%, sudden change from a few months ago when TTE showed a normal LVEF.
--- NOTE | 2021-12-11 12:00 | P.PN ---
Subjective Date of Service: 12/11/21 Chief Complaint: Shortness of breath Subjective: No new changes, No C/O voiced (feels better , still needed bipap overnight voiding well > 2 L) Physical Examination - Vital Signs Temperature: 97.4 F Blood Pressure: 100/66 Pulse: 71 Respirations: 28 Pulse Ox (%): 96 - Studies Laboratory Data (last 24 hrs) 12/10/21 08:45: Magnesium 1.8 Microbiology Data (last 24 hrs): 12/10/21 08:50 Blood - Blood Anaerobic Blood Culture - Final Assessment And Plan - Current Problems (Diagnosis) (1) CAD (coronary artery disease) Current Visit: No Status: Chronic Qualifiers: (2) T2DM (type 2 diabetes mellitus) Current Visit: No Status: Chronic (3) Acute renal failure superimposed on stage 3 chronic kidney disease Current Visit: No Status: Acute Qualifiers: (4) BPH (benign prostatic hyperplasia) Current Visit: No Status: Chronic Qualifiers: (5) Chronic kidney disease, stage III (moderate) Current Visit: No Status: Acute (6) Acute on chronic systolic CHF (congestive heart failure) Current Visit: Yes Status: Acute Physician Review: Patient Assessed, Agree with Above Assessment and Plan Physician Review Additional Text: 12/11/21 12:00 Physical examination Generalmiddle-aged male, chronically ill looking, on nasal cannula O2 HEENTPERRLA/EOMI Neckno JVD no carotid bruit Respiratorymoderate bibasilar crepitations, no chest wall tenderness CardiovascularS1-S2 rate and regular GIfull soft bowel sounds positive no organomegaly Extremitiesimproving + pedal edema, no calf tenderness Neuroalert oriented cranial 2-12 grossly intact Labsreviewed Impression #Acute kidney injury on CKD stage IIIbaseline creatinine of 1.3-1.7, currently at 1.42 -volume status improving - start kcl repletion - cr around baseline now c/w to monitor for risk of contrast AIN Continue to hold MILES/lisinopril Keep MAP optimize -Presumed underlying the cardiorenal syndrome type IV #Acute systolic CHF exacerbationc/w Bumex 1 mg every 12 and metolazone Switch to Bumex 2 mg p.o. twice daily at discharge -Improved BP , c/w midodrine 5 mg twice daily - may need do trial of Entresto while inpatient but hold for now since contrast exposure today c/w fluid restriction to less than 1.2 L/day #Diabetes mellitusstrict glycemic control #Chronic anticoagulationon Xarelto # Hypokalemia - start kcl 20 meq daily
[2021-12-11] MEDS: POTASSIUM 25 MEQ EFFERV TAB PO SCH (13:06)
[2021-12-11] MEDS ORDERED: BUMETANIDE 1 MG/4 ML VIAL IV SCH (17:00)
[2021-12-11] MEDS: ATORVASTATIN 40 MG TAB PO SCH (21:57)
[2021-12-11] MEDS: QUETIAPINE 100MG TAB PO SCH (21:58)
[2021-12-11] MEDS: ASPIRIN EC 81 MG TAB PO SCH (21:58)
[2021-12-11] MEDS: CYCLOBENZAPRINE 10 MG TAB PO PRN (22:14)
[2021-12-12] MEDS: MIDODRINE HCL 5 MG TABLET PO SCH ×3 (01:02→18:01)
[2021-12-12 04:45] LABS: Albumin 2.7 g/dL (3.4-5.0); Bilirubin Total 0.5 mg/dL (0.2-1.0); Potassium 3.6 mmol/L (3.5-5.1)
[2021-12-12] MEDS: LEVOTHYROXINE SOD 0.05 MG TABLET PO SCH (05:10)
--- NOTE | 2021-12-12 07:42 | CON ---
Date of Consultation: 12/11/2021 Reason For Consultation: Congestive heart failure. History Of Present Illness: Mr. Jordan is 61. He was in the hospital here in October of 2021. His ej ection fraction appeared to be normal with some diastolic congestive heart failure. Apparently since then, he had gone to [place] and seen Dr. Michaels in the congestive heart failure service and his eje ction fraction was 30%. He is now wearing a LifeVest. He has had a history of CABG and has had atri al fibrillation, hypertension, diabetes, hypothyroidism, comes in with congestive heart failure. Den ied any chest pain or syncope or fever or chills. Past Medical History: As stated above. Allergies: NONE. Review of Systems: Positive for having a LifeVest. Social History: Negative. Family History: Noncontributory. Medications: Include aspirin, Eliquis, Coreg, Wellbutrin, Celexa, insulin, Plavix, Lasix, Synthroid, Zestril, Protonix, Zocor, and potassium. Physical Examination: Vital Signs: Stable. Afebrile. General: Appeared to be in moderate distress, sinus rhythm. HEENT: Negative. Neck: Supple with no bruit. Chest: Revealed rales both bases. Cardiac: Revealed a regular rhythm and rate with an S4 gallop. No murmurs or rubs. Abdomen: Benign. Extremities: Revealed 1+ edema. Laboratory Data: His creatinine was 1.6. BNP was 10,504. Glucose was 146. Chest x-ray showed CHF. CTA showed bilateral pleural effusions. Impression And Plan: [id number] systolic congestive heart failure. The patient is on midodrin e for orthostatic hypotension. He is on Bumex now IV. I would recommend increasing the Coreg. His creatinine is 1.46. I am surprised he has a LifeVest, but he is not on Entresto. He is, however, on Zestril, Lasix, and carvedilol at home, which is adequate therapy. I will continue his present joanie men for now. I will contact Dr. Michaels in the morning and see if he would be a candidate for defibri llator pacemaker according to their ejection fraction. He will follow up with Dr. Michaels after disch arge. His other problems including dyslipidemia, diabetes, hypothyroidism, gastroesophageal reflux d isease seem to be stable. He is on Eliquis for paroxysmal atrial fibrillation, but he is in sinus [facility] now. He has had a CABG before. We will follow him as needed. JOSE Voice ID: [id number] Report ID: [id number]
--- NOTE | 2021-12-12 08:18 | P.PN ---
Subjective Date of Service: 12/12/21 Chief Complaint: Shortness of breath Subjective: No new changes Physical Examination - Vital Signs Temperature: 98.6 F Blood Pressure: 120/65 Pulse: 60 Respirations: 16 Pulse Ox (%): 96 - Studies Microbiology Data (last 24 hrs): 12/10/21 08:50 Blood - Blood Anaerobic Blood Culture - Final Assessment And Plan - Current Problems (Diagnosis) (1) CAD (coronary artery disease) Current Visit: No Status: Chronic Qualifiers: (2) T2DM (type 2 diabetes mellitus) Current Visit: No Status: Chronic (3) Acute renal failure superimposed on stage 3 chronic kidney disease Current Visit: No Status: Acute Qualifiers: (4) BPH (benign prostatic hyperplasia) Current Visit: No Status: Chronic Qualifiers: (5) Chronic kidney disease, stage III (moderate) Current Visit: No Status: Acute (6) Acute on chronic systolic CHF (congestive heart failure) Current Visit: Yes Status: Acute Physician Review: Patient Assessed, Agree with Above Assessment and Plan Physician Review Additional Text: 12/11/21 12:00 Physical examination Generalmiddle-aged male, chronically ill looking, on nasal cannula O2 HEENTPERRLA/EOMI Neckno JVD no carotid bruit Respiratorymoderate bibasilar crepitations, no chest wall tenderness CardiovascularS1-S2 rate and regular GIfull soft bowel sounds positive no organomegaly Extremitiesimproving + pedal edema, no calf tenderness Neuroalert oriented cranial 2-12 grossly intact Labsreviewed Impression #Acute kidney injury on CKD stage IIIbaseline creatinine of 1.3-1.7,, worsen to 1.7 now -Reduce oral intake advised - keep to fluid restriction to < 1.5 L/day - increase Bumex doses and follow -c/w to monitor for risk of contrast AIN Continue to hold MILES/lisinopril Keep MAP optimize -Presumed underlying the cardiorenal syndrome type IV #Acute systolic CHF exacerbationIncrease Bumex 1 mg every q8h to increase urine output -increase metolazone to 10 mg qd Switch to Bumex 2 mg p.o. twice daily at discharge -Improved BP , c/w midodrine 5 mg twice daily - may need do trial of Entresto while inpatient but hold for now since contrast exposure today c/w fluid restriction to less than 1.2 L/day #Diabetes mellitusstrict glycemic control #Chronic anticoagulationon Xarelto # Hypokalemia -controlled, c/w kcl 20 meq daily 12/12/21 08:17
[2021-12-12] MEDS ORDERED: POTASSIUM CL SA 10 MEQ TAB PO ONE (09:00)
[2021-12-12] MEDS: carvediloL 3.125 MG TAB PO SCH ×2 (09:00→19:50)
[2021-12-12] MEDS: METOLAZONE 5 MG TABLET PO SCH ×2 (09:00→20:15)
[2021-12-12] MEDS ORDERED: BUMETANIDE 1 MG/4 ML VIAL IV SCH (09:00)
[2021-12-12] MEDS: CITALOPRAM 10 MG TABLET PO SCH (09:01)
[2021-12-12] MEDS: BUPROPION HCL XL 150 MG TAB PO SCH (09:01)
[2021-12-12] MEDS: DOCUSATE NA 100 MG CAP PO SCH (09:02)
[2021-12-12] MEDS: DOCOSAHEXANOIC AC/EPA 1000 MG PO SCH ×2 (09:02→20:18)
[2021-12-12] MEDS: APIXABAN 5 MG TABLET PO SCH ×2 (09:02→20:15)
[2021-12-12] MEDS: CLOPIDOGREL 75 MG TABLET PO SCH (09:03)
[2021-12-12] MEDS: POTASSIUM 25 MEQ EFFERV TAB PO SCH (09:03)
[2021-12-12] MEDS: TAMSULOSIN 0.4 MG SR CAP PO SCH ×2 (09:03→20:16)
[2021-12-12] MEDS: PANTOPRAZOLE 40MG TABLET PO SCH (09:03)
--- NOTE | 2021-12-12 14:26 | ECHO ---
HEIGHT: 6 ft 0 in WEIGHT: 239 lb 12.8 oz DATE OF STUDY: 12/12/[address]: Prince Layla Torres MD 2-DIMENSIONAL: YES M.MODE: YES DOPPLER: YES COLOR FLOW: YES TDS: NO PORTABLE: NO DEFINITY: NO BUBBLE STUDY: NO DIAGNOSIS: CARDIAC HISTORY: CATHERIZATION:YES SURGERY: YES PROSTHETIC VALVE: NO PACEMAKER: NO MEASUREMENTS (cm) DIASTOLIC (NORMALS) SYSTOLIC (NORMALS) IVSd 1.1 (0.6-1.2) LA Diam 3.6 (1.9-4.0) LVEF 52% LVIDd 6.8 (3.5-5.7) LVIDs 4.9 (2.0-3.5) %FS 27% LVPWd 1.3 (0.6-1.2) Ao Diam 3.0 (2.0-3.7) 2 DIMENSIONAL ASSESSMENT: RIGHT ATRIUM: NORMAL LEFT ATRIUM: NORMAL RIGHT VENTRICLE: NORMAL LEFT VENTRICLE: NORMAL TRICUSPID VALVE: MITRAL VALVE: PULMONIC VALVE: AORTIC VALVE: PERICARDIAL EFFUSION: NONE AORTIC ROOT: NORMAL LEFT VENTRICULAR WALL MOTION: LOW NORMAL DOPPLER/COLOR FLOW: SEE BELOW COMMENTS: LOW NORMAL LEFT VENTRICULAR EJECTION FRACTION 50-55%. MODERATELY DILATED LEFT VENTRICLE. MILD TRICUSPID, PULMONARY AND AORTIC REGURGITATION. LIKELY SEVERE MITRAL REGURGITATION. RECOMMEND [place] AND CT SURGERY EVALUATION. SEVERE PULMONARY HYPERTENSION WITH RIGHT VENTRICULAR SYSTOLIC PRESSURE > 60 mmHg. TECHNOLOGIST: Pipo ESCOBAR
[2021-12-12] MEDS ORDERED: HUMALOG MIX 75/25 100 UNITS/ML SQ ONE (18:00)
[2021-12-12] MEDS: FUROSEMIDE 40 MG/4 ML VIAL IV SCH (18:00)
[2021-12-12] MEDS ORDERED: GLUCAGON 1 MG/VIAL IM PRN (19:45)
[2021-12-12] MEDS ORDERED: D50W 25 GM/50 ML SYRINGE IV PRN (19:45)
[2021-12-12] MEDS: INSULIN -REGULAR HUMAN 50 UNIT/0.5 ML ML SQ SCH (20:14)
[2021-12-12] MEDS: ASPIRIN EC 81 MG TAB PO SCH (20:15)
[2021-12-12] MEDS: CYCLOBENZAPRINE 10 MG TAB PO PRN (20:15)
[2021-12-12] MEDS: QUETIAPINE 100MG TAB PO SCH (20:16)
[2021-12-12] MEDS: ATORVASTATIN 40 MG TAB PO SCH (20:17)
[2021-12-13] MEDS: FUROSEMIDE 40 MG/4 ML VIAL IV SCH ×2 (01:00→09:25)
[2021-12-13] MEDS: MIDODRINE HCL 5 MG TABLET PO SCH ×4 (01:42→23:52)
[2021-12-13 04:32] LABS: Albumin 2.8 g/dL (3.4-5.0); Bilirubin Total 0.6 mg/dL (0.2-1.0); Potassium 3.1 mmol/L (3.5-5.1); Protein, Total 7.3 g/dL (6.4-8.2)
[2021-12-13] MEDS: LEVOTHYROXINE SOD 0.05 MG TABLET PO SCH (05:21)
[2021-12-13] MEDS: INSULIN -REGULAR HUMAN 50 UNIT/0.5 ML ML SQ SCH ×4 (07:30→20:10)
[2021-12-13] MEDS ORDERED: POTASSIUM CL SA 10 MEQ TAB PO ONE (07:49)
[2021-12-13] MEDS: METOLAZONE 5 MG TABLET PO SCH ×2 (09:00→20:12)
[2021-12-13] MEDS: DOCOSAHEXANOIC AC/EPA 1000 MG PO SCH ×2 (09:24→20:13)
[2021-12-13] MEDS: CLOPIDOGREL 75 MG TABLET PO SCH (09:24)
[2021-12-13] MEDS: carvediloL 3.125 MG TAB PO SCH ×2 (09:24→20:13)
[2021-12-13] MEDS: CITALOPRAM 10 MG TABLET PO SCH (09:24)
[2021-12-13] MEDS: APIXABAN 5 MG TABLET PO SCH ×2 (09:24→20:11)
[2021-12-13] MEDS: PANTOPRAZOLE 40MG TABLET PO SCH (09:24)
[2021-12-13] MEDS: DOCUSATE NA 100 MG CAP PO SCH (09:25)
[2021-12-13] MEDS: BUPROPION HCL XL 150 MG TAB PO SCH (09:25)
[2021-12-13] MEDS: TAMSULOSIN 0.4 MG SR CAP PO SCH ×2 (09:25→20:11)
[2021-12-13] MEDS: POTASSIUM 25 MEQ EFFERV TAB PO SCH (09:25)
--- NOTE | 2021-12-13 14:11 | P.PN ---
Subjective Date of Service: 12/13/21 Chief Complaint: Shortness of breath Subjective: No new changes, No C/O voiced Physical Examination - Vital Signs Temperature: 97.1 F Blood Pressure: 107/64 Pulse: 88 Respirations: 18 Pulse Ox (%): 98 Assessment And Plan - Current Problems (Diagnosis) (1) CAD (coronary artery disease) Current Visit: No Status: Chronic Qualifiers: (2) T2DM (type 2 diabetes mellitus) Current Visit: No Status: Chronic (3) Acute renal failure superimposed on stage 3 chronic kidney disease Current Visit: No Status: Acute Qualifiers: (4) BPH (benign prostatic hyperplasia) Current Visit: No Status: Chronic Qualifiers: (5) Chronic kidney disease, stage III (moderate) Current Visit: No Status: Acute (6) Acute on chronic systolic CHF (congestive heart failure) Current Visit: Yes Status: Acute Physician Review: Patient Assessed, Agree with Above Assessment and Plan Physician Review Additional Text: Physical examination Generalmiddle-aged male, chronically ill looking, on RA HEENTPERRLA/EOMI Neckno JVD no carotid bruit Respiratoryimproved bibasilar crepitations, no chest wall tenderness CardiovascularS1-S2 rate and regular GIfull soft bowel sounds positive no organomegaly Extremitiesimproving trace pedal edema, no calf tenderness Neuroalert oriented cranial 2-12 grossly intact Labsreviewed Impression #Acute kidney injury on CKD stage IIIbaseline creatinine of 1.3-1.7, -stable at 1.67 -volume improving -likley due to CRS type II on DM nephropathy -Continue to hold MILES/lisinopril #Acute systolic CHF exacerbationimproving -swithc to Bumex 2 mg bid po -good outpt with added metoazone use Chronic Hypotension -Improved BP , c/w midodrine 5 mg twice daily - may need do trial of Entresto in the future c/w fluid restriction to less than 1.2 L/day #Diabetes mellitusstrict glycemic control #Chronic anticoagulationon Xarelto # Hypokalemia -recurrent , replete with 60 mew today , start kcl 20 meq daily -follow with PCP or me in renal clinic in 1 week
[2021-12-13] MEDS ORDERED: POTASSIUM 25 MEQ EFFERV TAB PO ONE (14:12)
[2021-12-13] MEDS: ATORVASTATIN 40 MG TAB PO SCH (20:11)
[2021-12-13] MEDS: CYCLOBENZAPRINE 10 MG TAB PO PRN (20:11)
[2021-12-13] MEDS: QUETIAPINE 100MG TAB PO SCH (20:11)
[2021-12-13] MEDS: ASPIRIN EC 81 MG TAB PO SCH (20:11)
[2021-12-13] MEDS: BUMETANIDE 1 MG TABLET PO SCH (20:13)
[2021-12-14 04:30] LABS: Albumin 2.9 g/dL (3.4-5.0); Bilirubin Total 0.4 mg/dL (0.2-1.0); Potassium 3.6 mmol/L (3.5-5.1); Protein, Total 7.5 g/dL (6.4-8.2)
[2021-12-14] MEDS: LEVOTHYROXINE SOD 0.05 MG TABLET PO SCH (05:31)
[2021-12-14] MEDS: POTASSIUM 25 MEQ EFFERV TAB PO SCH (09:00)
[2021-12-14] MEDS ORDERED: POTASSIUM 25 MEQ EFFERV TAB PO ONE (09:00)
[2021-12-14] MEDS: carvediloL 3.125 MG TAB PO SCH ×2 (09:23→20:33)
[2021-12-14] MEDS: APIXABAN 5 MG TABLET PO SCH ×2 (09:24→20:33)
[2021-12-14] MEDS: METOLAZONE 5 MG TABLET PO SCH ×2 (09:24→20:32)
[2021-12-14] MEDS: CITALOPRAM 10 MG TABLET PO SCH (09:24)
[2021-12-14] MEDS: CLOPIDOGREL 75 MG TABLET PO SCH (09:24)
[2021-12-14] MEDS: BUMETANIDE 1 MG TABLET PO SCH ×2 (09:24→20:33)
[2021-12-14] MEDS: BUPROPION HCL XL 150 MG TAB PO SCH (09:24)
[2021-12-14] MEDS: MIDODRINE HCL 5 MG TABLET PO SCH ×3 (09:25→23:10)
[2021-12-14] MEDS: TAMSULOSIN 0.4 MG SR CAP PO SCH ×2 (09:25→20:31)
[2021-12-14] MEDS: DOCOSAHEXANOIC AC/EPA 1000 MG PO SCH ×2 (09:25→20:32)
[2021-12-14] MEDS: PANTOPRAZOLE 40MG TABLET PO SCH (09:25)
[2021-12-14] MEDS: INSULIN -REGULAR HUMAN 50 UNIT/0.5 ML ML SQ SCH ×4 (09:25→20:31)
[2021-12-14] MEDS: DOCUSATE NA 100 MG CAP PO SCH (09:29)
--- NOTE | 2021-12-14 13:11 | P.PN ---
Subjective Date of Service: 12/14/21 Chief Complaint: Shortness of breath Subjective: No new changes, No C/O voiced Physical Examination - Vital Signs Temperature: 96.4 F Blood Pressure: 119/74 Pulse: 82 Respirations: 20 Pulse Ox (%): 100 Assessment And Plan - Current Problems (Diagnosis) (1) CAD (coronary artery disease) Current Visit: No Status: Chronic Qualifiers: (2) T2DM (type 2 diabetes mellitus) Current Visit: No Status: Chronic (3) Acute renal failure superimposed on stage 3 chronic kidney disease Current Visit: No Status: Acute Qualifiers: (4) BPH (benign prostatic hyperplasia) Current Visit: No Status: Chronic Qualifiers: (5) Chronic kidney disease, stage III (moderate) Current Visit: No Status: Acute (6) Acute on chronic systolic CHF (congestive heart failure) Current Visit: Yes Status: Acute Physician Review: Patient Assessed, Agree with Above Assessment and Plan Physician Review Additional Text: 12/11/21 12:00 Physical examination Generalmiddle-aged male, chronically ill looking, on nasal cannula O2 HEENTPERRLA/EOMI Neckno JVD no carotid bruit Respiratorymoderate bibasilar crepitations, no chest wall tenderness CardiovascularS1-S2 rate and regular GIfull soft bowel sounds positive no organomegaly Extremitiesimproving + pedal edema, no calf tenderness Neuroalert oriented cranial 2-12 grossly intact Labsreviewed Impression #Acute kidney injury on CKD stage IIIbaseline creatinine of 1.3-1.7,-Improving to 1.58 -making urine well , with negative 2.6 L -c/w oral Bumex , c/w metolaozne for now -c/w fluid restriction to < 1.5 L/day -Continue to hold MILES/lisinopril Keep MAP optimize -Presumed underlying the cardiorenal syndrome type IV #Acute systolic CHF exacerbationc/w Bumex 2 mg p.o. twice daily at discharge # Chronic Hypotension -controlled BP , c/w midodrine 5 mg twice daily - may need do trial of Entresto while inpatient but hold for now since contrast exposure today c/w fluid restriction to less than 1.2 L/day #Diabetes mellitusstrict glycemic control #Chronic anticoagulationon Xarelto # Hypokalemia -controlled, c/w kcl 20 meq daily
[2021-12-14] MEDS: CYCLOBENZAPRINE 10 MG TAB PO PRN (20:32)
[2021-12-14] MEDS: ASPIRIN EC 81 MG TAB PO SCH (20:33)
[2021-12-14] MEDS: ATORVASTATIN 40 MG TAB PO SCH (20:33)
[2021-12-14] MEDS: QUETIAPINE 100MG TAB PO SCH (20:33)
[2021-12-15] MEDS: LEVOTHYROXINE SOD 0.05 MG TABLET PO SCH (05:11)
[2021-12-15] MEDS: POTASSIUM 25 MEQ EFFERV TAB PO SCH (08:50)
[2021-12-15] MEDS: BUPROPION HCL XL 150 MG TAB PO SCH (08:50)
[2021-12-15] MEDS: CITALOPRAM 10 MG TABLET PO SCH (08:51)
[2021-12-15] MEDS: DOCUSATE NA 100 MG CAP PO SCH (08:51)
[2021-12-15] MEDS: CLOPIDOGREL 75 MG TABLET PO SCH (08:51)
[2021-12-15] MEDS: PANTOPRAZOLE 40MG TABLET PO SCH (08:51)
[2021-12-15] MEDS: BUMETANIDE 1 MG TABLET PO SCH ×2 (08:51→21:54)
[2021-12-15] MEDS: TAMSULOSIN 0.4 MG SR CAP PO SCH ×2 (08:52→21:50)
[2021-12-15] MEDS: DOCOSAHEXANOIC AC/EPA 1000 MG PO SCH ×2 (08:52→21:51)
[2021-12-15] MEDS: carvediloL 3.125 MG TAB PO SCH ×2 (08:52→21:52)
[2021-12-15] MEDS: APIXABAN 5 MG TABLET PO SCH ×2 (08:52→21:51)
[2021-12-15] MEDS: METOLAZONE 5 MG TABLET PO SCH (08:52)
[2021-12-15] MEDS: INSULIN -REGULAR HUMAN 50 UNIT/0.5 ML ML SQ SCH ×4 (08:53→21:52)
[2021-12-15] MEDS: MIDODRINE HCL 5 MG TABLET PO SCH ×2 (08:54→17:00)
[2021-12-15] MEDS ORDERED: POTASSIUM CL SA 10 MEQ TAB PO ONE ×2 (09:00→17:00)
--- NOTE | 2021-12-15 11:58 | P.PN ---
Date of Service: 12/12/21 Subjective Subjective: Patient diuresing affectively Physical Examination - Vital Signs reviewed - Physical Exam General: In no apparent distress, Cooperative, Obese HEENT: WNL Respiratory: Clear bilaterally; Cardiovascular: Regular rate/rhythm, Normal S1 S2, Edema Abdomen: soft NT/ND BS positive Neurological: Normal speech, Normal affect Assessment And Plan - Current Problems (Diagnosis) (1) Acute on chronic systolic CHF (congestive heart failure) Current Visit: Yes Status: Acute (2) Acute hypoxemic respiratory failure Current Visit: Yes Status: Acute (3) Acute renal failure superimposed on stage 3 chronic kidney disease Current Visit: No Status: Acute Qualifiers: (4) DVT, bilateral lower limbs Current Visit: No Status: Acute Qualifiers: (5) BPH (benign prostatic hyperplasia) Current Visit: No Status: Chronic Qualifiers: (6) CAD (coronary artery disease) Current Visit: No Status: Chronic Qualifiers: (7) T2DM (type 2 diabetes mellitus) Current Visit: No Status: Chronic Physician Review: Patient Assessed, Agree with Above Assessment and Plan Physician Review Additional Text: Plan: -Continue supplemental O2, alternate with BIPAP -Continue Bumex 1 mg IV BID and metolazone -Continue monitoring I/O -Continue metoprolol -Continue apixaban -GI ppx - Patient will need follow up with his driver operator Dr. Michaels for AICD. Last LVEF reportedly 35%, sudden change from a few months ago when TTE showed a normal LVEF.
--- NOTE | 2021-12-15 12:04 | P.PN ---
Date of Service: 12/13/21 Subjective Subjective: Patient continues to improve with no new complaints Physical Examination - Vital Signs reviewed - Physical Exam General: In no apparent distress, Cooperative, Obese HEENT: WNL Respiratory: Clear bilaterally; Cardiovascular: Regular rate/rhythm, Normal S1 S2, Edema Abdomen: soft NT/ND BS positive Neurological: Normal speech, Normal affect Assessment And Plan - Current Problems (Diagnosis) (1) Acute on chronic systolic CHF (congestive heart failure) Current Visit: Yes Status: Acute (2) Acute hypoxemic respiratory failure Current Visit: Yes Status: Acute (3) Acute renal failure superimposed on stage 3 chronic kidney disease Current Visit: No Status: Acute Qualifiers: (4) DVT, bilateral lower limbs Current Visit: No Status: Acute Qualifiers: (5) BPH (benign prostatic hyperplasia) Current Visit: No Status: Chronic Qualifiers: (6) CAD (coronary artery disease) Current Visit: No Status: Chronic Qualifiers: (7) T2DM (type 2 diabetes mellitus) Current Visit: No Status: Chronic Physician Review: Patient Assessed, Agree with Above Assessment and Plan Physician Review Additional Text: Plan: -Continue supplemental O2; wean off BIPAP -Continue Bumex 1 mg IV BID and metolazone -Continue monitoring I/O -Continue metoprolol -Continue apixaban -GI prophylaxis - Patient will need follow up with his dental practice manager Dr. Michaels for AICD. Last LVEF reportedly 35%, sudden change from a few months ago when TTE showed a normal LVEF.
--- NOTE | 2021-12-15 12:05 | P.PN ---
Date of Service: 12/14/21 Subjective Subjective: Patient awaiting for acceptance to [facility] Physical Examination - Vital Signs reviewed - Physical Exam General: In no apparent distress, Cooperative, Obese HEENT: WNL Respiratory: Clear bilaterally; Cardiovascular: Regular rate/rhythm, Normal S1 S2, Edema Abdomen: soft NT/ND BS positive Neurological: Normal speech, Normal affect Assessment And Plan - Current Problems (Diagnosis) (1) Acute on chronic systolic CHF (congestive heart failure) Current Visit: Yes Status: Acute (2) Acute hypoxemic respiratory failure Current Visit: Yes Status: Acute (3) Acute renal failure superimposed on stage 3 chronic kidney disease Current Visit: No Status: Acute Qualifiers: (4) DVT, bilateral lower limbs Current Visit: No Status: Acute Qualifiers: (5) BPH (benign prostatic hyperplasia) Current Visit: No Status: Chronic Qualifiers: (6) CAD (coronary artery disease) Current Visit: No Status: Chronic Qualifiers: (7) T2DM (type 2 diabetes mellitus) Current Visit: No Status: Chronic Physician Review: Patient Assessed, Agree with Above Assessment and Plan Physician Review Additional Text: Plan: Continue with POC as mentioned below: -BIPAP at night -Change to oral meds -Continue monitoring I/O -Continue metoprolol -Continue apixaban -GI prophylaxis - Patient will need follow up with his medical services coordinator Dr. Michaels for AICD. Last LVEF reportedly 35%, sudden change from a few months ago when TTE showed a normal LVEF.
--- NOTE | 2021-12-15 12:06 | P.PN ---
Date of Service: 12/15/21 Subjective Subjective: Patient continues to improve; awaiting for transfer to SNF once accepted Physical Examination - Vital Signs reviewed - Physical Exam General: In no apparent distress, Cooperative, Obese HEENT: WNL Respiratory: Clear bilaterally; Cardiovascular: Regular rate/rhythm, Normal S1 S2, Edema Abdomen: soft NT/ND BS positive Neurological: Normal speech, Normal affect Assessment And Plan - Current Problems (Diagnosis) (1) Acute on chronic systolic CHF (congestive heart failure) Current Visit: Yes Status: Acute (2) Acute hypoxemic respiratory failure Current Visit: Yes Status: Acute (3) Acute renal failure superimposed on stage 3 chronic kidney disease Current Visit: No Status: Acute Qualifiers: (4) DVT, bilateral lower limbs Current Visit: No Status: Acute Qualifiers: (5) BPH (benign prostatic hyperplasia) Current Visit: No Status: Chronic Qualifiers: (6) CAD (coronary artery disease) Current Visit: No Status: Chronic Qualifiers: (7) T2DM (type 2 diabetes mellitus) Current Visit: No Status: Chronic Physician Review: Patient Assessed, Agree with Above Assessment and Plan Physician Review Additional Text: Plan: Continue with POC as mentioned below: -Transfer to SNF, [facility], once accepted -BIPAP at night -Change to oral meds -Continue monitoring I/O -Continue metoprolol -Continue apixaban -GI prophylaxis - Patient will need follow up with his typist Dr. Michaels for AICD. Last LVEF reportedly 35%, sudden change from a few months ago when TTE showed a normal LVEF.
--- NOTE | 2021-12-15 16:54 | P.PN ---
Subjective Date of Service: 12/15/21 Chief Complaint: Shortness of breath Subjective: No new changes, Tolerating diet (improving volume status awaiting rehab) Physical Examination - Vital Signs Temperature: 97.0 F Blood Pressure: 109/68 Pulse: 85 Respirations: 16 Pulse Ox (%): 93 - Studies Microbiology Data (last 24 hrs): 12/10/21 08:50 Blood - Blood Aerobic Blood Culture - Final No growth in 5 days. 12/10/21 08:50 Blood - Blood Anaerobic Blood Culture - Final Assessment And Plan - Current Problems (Diagnosis) (1) CAD (coronary artery disease) Current Visit: No Status: Chronic Qualifiers: (2) T2DM (type 2 diabetes mellitus) Current Visit: No Status: Chronic (3) Acute renal failure superimposed on stage 3 chronic kidney disease Current Visit: No Status: Acute Qualifiers: (4) BPH (benign prostatic hyperplasia) Current Visit: No Status: Chronic Qualifiers: (5) Chronic kidney disease, stage III (moderate) Current Visit: No Status: Acute (6) Acute on chronic systolic CHF (congestive heart failure) Current Visit: Yes Status: Acute Physician Review: Patient Assessed, Agree with Above Assessment and Plan Physician Review Additional Text: 12/11/21 12:00 Physical examination Generalmiddle-aged male, chronically ill looking, on nasal cannula O2 HEENTPERRLA/EOMI Neckno JVD no carotid bruit Respiratorymoderate bibasilar crepitations, no chest wall tenderness CardiovascularS1-S2 rate and regular GIfull soft bowel sounds positive no organomegaly Extremitiesimproving + pedal edema, no calf tenderness Neuroalert oriented cranial 2-12 grossly intact Labsreviewed Impression #Acute kidney injury on CKD stage IIIbaseline creatinine of 1.3-1.7,- follow repeat in am - low k , repleted -fiollow k and mg in am - prior creatinine Improving to 1.58 -making urine well -c/w oral Bumex/ metolaozne for now -c/w fluid restriction to < 1.5 L/day -Continue to hold MILES/lisinopril Keep MAP optimize -Presumed underlying the cardiorenal syndrome type IV #Acute systolic CHF exacerbationc/w Bumex 2 mg p.o. twice daily at discharge dc metolazone now since large urine outpt of > 7l - new low EF at 35% # Chronic Hypotension -controlled BP , c/w midodrine 5 mg twice daily - start trial of Entresto while inpatient now c/w fluid restriction to less than 1.2 L/day #Diabetes mellitusstrict glycemic control #Chronic anticoagulationon Xarelto # Hypokalemia -repleted, c/w kcl 20 meq daily 12/15/21 16:54
[2021-12-15 17:22] LABS: Potassium 3.5 mmol/L (3.5-5.1)
[2021-12-15] MEDS: ASPIRIN EC 81 MG TAB PO SCH (21:50)
[2021-12-15] MEDS: ATORVASTATIN 40 MG TAB PO SCH (21:51)
[2021-12-15] MEDS: QUETIAPINE 100MG TAB PO SCH (21:51)
[2021-12-15] MEDS: SACUBITRIL/VALSARTAN 24/26 MG TAB PO SCH (21:57)
[2021-12-16] MEDS: MIDODRINE HCL 5 MG TABLET PO SCH ×4 (00:37→23:32)
[2021-12-16] MEDS: LEVOTHYROXINE SOD 0.05 MG TABLET PO SCH (05:34)
[2021-12-16 06:26] LABS: Albumin 3.1 g/dL (3.4-5.0); Bilirubin Total 0.5 mg/dL (0.2-1.0); Potassium 3.4 mmol/L (3.5-5.1); Protein, Total 7.7 g/dL (6.4-8.2)
[2021-12-16] MEDS: INSULIN -REGULAR HUMAN 50 UNIT/0.5 ML ML SQ SCH ×4 (07:53→21:00)
[2021-12-16] MEDS: INSULIN GLARGINE 100 UNIT/ML SQ SCH (07:53)
[2021-12-16] MEDS: PANTOPRAZOLE 40MG TABLET PO SCH (07:54)
[2021-12-16] MEDS: BUPROPION HCL XL 150 MG TAB PO SCH (07:54)
[2021-12-16] MEDS: APIXABAN 5 MG TABLET PO SCH ×2 (07:54→21:47)
[2021-12-16] MEDS: SACUBITRIL/VALSARTAN 24/26 MG TAB PO SCH (07:54)
[2021-12-16] MEDS: DOCOSAHEXANOIC AC/EPA 1000 MG PO SCH (07:55)
[2021-12-16] MEDS: DOCUSATE NA 100 MG CAP PO SCH (07:55)
[2021-12-16] MEDS: CITALOPRAM 10 MG TABLET PO SCH (07:55)
[2021-12-16] MEDS: TAMSULOSIN 0.4 MG SR CAP PO SCH ×3 (07:55→21:47)
[2021-12-16] MEDS: carvediloL 3.125 MG TAB PO SCH (07:56)
[2021-12-16] MEDS: CLOPIDOGREL 75 MG TABLET PO SCH (07:56)
[2021-12-16] MEDS: BUMETANIDE 1 MG TABLET PO SCH (07:57)
[2021-12-16] MEDS ORDERED: POTASSIUM 25 MEQ EFFERV TAB PO ONE (09:00)
[2021-12-16] MEDS ORDERED: D50W 25 GM/50 ML SYRINGE IV PRN (10:53)
[2021-12-16] MEDS ORDERED: GLUCAGON 1 MG/VIAL IM PRN (10:53)
[2021-12-16] MEDS: INSULIN 70/30 100 UNITS/ML SQ SCH ×2 (11:52→16:32)
[2021-12-16] MEDS ORDERED: POTASSIUM CL SA 10 MEQ TAB PO ONE (16:00)
[2021-12-16] MEDS ORDERED: ONDANSETRON 4 MG/2 ML VIAL IV PRN (18:24)
[2021-12-16] MEDS ORDERED: NA CHLORIDE 0.9% 1,000 ML IV ONE (19:00)
[2021-12-16] MEDS ORDERED: TRAMADOL HCL 50 MG TAB PO PRN (21:35)
[2021-12-16] MEDS: QUETIAPINE 100MG TAB PO SCH (21:47)
[2021-12-16] MEDS: ASPIRIN EC 81 MG TAB PO SCH (21:47)
[2021-12-16] MEDS ORDERED: HYDROCODONE/APAP 7.5/325 MG TAB PO PRN (21:47)
[2021-12-16] MEDS: CYCLOBENZAPRINE 10 MG TAB PO PRN (21:48)
[2021-12-16] MEDS: ATORVASTATIN 40 MG TAB PO SCH (21:50)
[2021-12-17 05:53] LABS: Bilirubin Total 0.3 mg/dL (0.2-1.0); Potassium 3.2 mmol/L (3.5-5.1); Protein, Total 7.7 g/dL (6.4-8.2)
[2021-12-17] MEDS: LEVOTHYROXINE SOD 0.05 MG TABLET PO SCH (06:13)
[2021-12-17] MEDS: INSULIN -REGULAR HUMAN 50 UNIT/0.5 ML ML SQ SCH ×4 (07:30→21:00)
[2021-12-17] MEDS: DOCUSATE NA 100 MG CAP PO SCH (08:36)
[2021-12-17] MEDS: CITALOPRAM 10 MG TABLET PO SCH (08:36)
[2021-12-17] MEDS: CLOPIDOGREL 75 MG TABLET PO SCH (08:36)
[2021-12-17] MEDS: PANTOPRAZOLE 40MG TABLET PO SCH (08:36)
[2021-12-17] MEDS: INSULIN GLARGINE 100 UNIT/ML SQ SCH (08:39)
[2021-12-17] MEDS: INSULIN 70/30 100 UNITS/ML SQ SCH ×3 (08:40→21:43)
[2021-12-17] MEDS: TAMSULOSIN 0.4 MG SR CAP PO SCH ×2 (08:40→21:38)
[2021-12-17] MEDS: DOCOSAHEXANOIC AC/EPA 1000 MG PO SCH ×2 (08:41→21:39)
[2021-12-17] MEDS: MIDODRINE HCL 5 MG TABLET PO SCH ×2 (08:41→16:46)
[2021-12-17] MEDS: BUPROPION HCL XL 150 MG TAB PO SCH (08:41)
[2021-12-17] MEDS: APIXABAN 5 MG TABLET PO SCH ×2 (08:41→21:00)
[2021-12-17] MEDS: CYCLOBENZAPRINE 10 MG TAB PO PRN ×2 (08:48→21:42)
[2021-12-17] MEDS ORDERED: POTASSIUM CL SA 10 MEQ TAB PO ONE ×3 (09:00→17:43)
[2021-12-17] MEDS ORDERED: ALBUMIN HUMAN 25% 100 ML IV ONE (10:16)
[2021-12-17] MEDS ORDERED: NA CHLORIDE 0.9% 500 ML IV ONE (10:16)
[2021-12-17] MEDS ORDERED: NA CHLORIDE 0.9% 1,000 ML IV SCH (11:00)
[2021-12-17 16:58] LABS: Absolute Lymphocytes (CBC) 1.9 K/uL (0.7-4.9); Hematocrit 39.5 % (39.6-49.0); Lymphocytes % 30.5 % (15.3-44.8); MPV 8.2 fL (7.6-11.3); RBC Red Blood Cell Count 4.28 M/uL (4.33-5.43)
[2021-12-17 17:14] LABS: Albumin 3.2 g/dL (3.4-5.0); Bilirubin Total 0.3 mg/dL (0.2-1.0); Potassium 3.2 mmol/L (3.5-5.1); Protein, Total 7.8 g/dL (6.4-8.2)
[2021-12-17] MEDS: ASPIRIN EC 81 MG TAB PO SCH (21:38)
[2021-12-17] MEDS: ATORVASTATIN 40 MG TAB PO SCH (21:39)
[2021-12-17] MEDS: QUETIAPINE 100MG TAB PO SCH (21:39)
[2021-12-18 05:55] LABS: Albumin 2.9 g/dL (3.4-5.0); Bilirubin Total 0.3 mg/dL (0.2-1.0); Potassium 3.3 mmol/L (3.5-5.1); Protein, Total 6.9 g/dL (6.4-8.2)
[2021-12-18] MEDS ORDERED: POTASSIUM CL SA 10 MEQ TAB PO ONE (06:27)
[2021-12-18] MEDS: LEVOTHYROXINE SOD 0.05 MG TABLET PO SCH (06:56)
[2021-12-18] MEDS: INSULIN 70/30 100 UNITS/ML SQ SCH ×2 (07:30→09:31)
[2021-12-18] MEDS: INSULIN -REGULAR HUMAN 50 UNIT/0.5 ML ML SQ SCH ×3 (07:30→16:30)
[2021-12-18] MEDS: MIDODRINE HCL 5 MG TABLET PO SCH ×4 (08:00→17:21)
[2021-12-18] MEDS: INSULIN GLARGINE 100 UNIT/ML SQ SCH (09:00)
[2021-12-18] MEDS: CLOPIDOGREL 75 MG TABLET PO SCH (09:00)
[2021-12-18] MEDS ORDERED: BUMETANIDE 1 MG TABLET PO SCH (09:18)
[2021-12-18] MEDS: PANTOPRAZOLE 40MG TABLET PO SCH (09:31)
[2021-12-18] MEDS: APIXABAN 5 MG TABLET PO SCH (09:31)
[2021-12-18] MEDS: BUPROPION HCL XL 150 MG TAB PO SCH (09:32)
[2021-12-18] MEDS: DOCUSATE NA 100 MG CAP PO SCH (09:32)
[2021-12-18] MEDS: CITALOPRAM 10 MG TABLET PO SCH (09:36)
[2021-12-18] MEDS: DOCOSAHEXANOIC AC/EPA 1000 MG PO SCH (09:38)
[2021-12-18] MEDS: TAMSULOSIN 0.4 MG SR CAP PO SCH (09:39)
[2021-12-18 14:07] VITALS: O2SAT 95
[2021-12-18 17:14] VITALS: BP 103/63; TEMP 97.6
== END 2021-12-18 17:39 | disposition home or self-care (01) | DRG 291 ==
LOC: ER 08:13 → ERHOLD 11:50 → 2ND 19:29
PROVIDERS: ADMIT Internal Medicine; ATTEND Hospitalist
PROC: 5A09557 Assistance with Respiratory Ventilation, Greater than 96 Consecutive Hours, Continuous Positive Airway Pressure (ICD-10-PCS; principal; 2021-12-11)
DX: I13.0 Hypertensive heart and chronic kidney disease with heart failure and stage 1 through stage 4 chronic kidney disease, or unspecified chronic kidney disease (principal); I50.23 Acute on chronic systolic (congestive) heart failure; J96.01 Acute respiratory failure with hypoxia; N17.9 Acute kidney failure, unspecified; N18.30 Chronic kidney disease, stage 3 unspecified; E11.22 Type 2 diabetes mellitus with diabetic chronic kidney disease; E66.01 Morbid (severe) obesity due to excess calories; N40.0 Benign prostatic hyperplasia without lower urinary tract symptoms; I95.1 Orthostatic hypotension; I25.10 Atherosclerotic heart disease of native coronary artery without angina pectoris; I48.0 Paroxysmal atrial fibrillation; E03.9 Hypothyroidism, unspecified; E87.6 Hypokalemia; F17.200 Nicotine dependence, unspecified, uncomplicated; Z68.32 Body mass index [BMI] 32.0-32.9, adult; Z86.718 Personal history of other venous thrombosis and embolism; Z79.01 Long term (current) use of anticoagulants; Z79.82 Long term (current) use of aspirin; Z79.4 Long term (current) use of insulin; Z79.899 Other long term (current) drug therapy; Z95.5 Presence of coronary angioplasty implant and graft; Z95.1 Presence of aortocoronary bypass graft; Z79.890 Hormone replacement therapy; Z79.02 Long term (current) use of antithrombotics/antiplatelets; Z20.822 Contact with and (suspected) exposure to COVID-19
CPT/HCPCS: 0240U; 36415; 71045; 71275; 80048; 80053; 80076; 82570; 82947; 83735; 83880; 84132; 84145; 84300; 84484; 85025; 85610; 85730; 87040; 93005; 93306; 94660; 94760; 96374; 97116; 97161; 97530; 99285; J1815; J1940; J2405; J7030; J7040; P9047; Q9967

== ENCOUNTER 2022-01-10 11:34 | Emergency (ER) | payer OTHER ==
--- OUTSIDE RECORDS SUMMARY | 2022-01-10 11:39 | XMS REPORT | Clinical Summary ---
:1960 Author Organization [facility] Address [address] [place] [address] Care Team Providers Name Role Phone Zahira [...] Vaccination (1) 1965 Results Not on fileafter 01/10/2021 Insurance Payer Benefit Plan / Subscriber ID Effective Dates Phone Addre ss Type Group HUMANA HUMANA CHOICE [id number] 2014-Presen [address] [address] Medicare MEDIC[place] [phone] Care Teams Telephone Answerer Relationship Specialty Start Date End Date Zahira Riley MD PCP - External Follow Up Family Practice 11/13/[address] [place] [address]. [place], [place] [id number] Vita Dove PCP - General Lymphoma and Myeloma 10/08/16 MD [facility] [address] [place] [id number] Zahira Riley MD PCP - External Referring Family Practice 10/08/[address] [place] [address]. CAITLYN MENDEZ [id number]
--- OUTSIDE RECORDS SUMMARY | 2022-01-10 11:47 | XMS REPORT | Continuity of Care Document ---
:[address] [facility] t Address [address] [place] [address] Care Team Providers Name Role Phone Murtaza Dove MD Primary Care Physician GC_[facility]_Seiter_S Attending Clinician Unavailable Juan Pacheco Attending Clinician [phone] APRIL Attending Clinician Unavailable Hari PRITCHARD Attending Clinician Unavailable GC_[facility]HC_Seiter_S Admitting Clinician Unavailable Hari PRITCHARD Admitting Clinician Unavailable Payers Payer Name Policy Type Policy Number Effective Date Expiration Date S ource HU[employer] - GOLD PLUS [id number] (MEDICARE REPLACEMENT HMO) HU[employer]NA MEDICARE ADV [id number] 2021 00:00:00 Problems Condition Condition Condition Status Onset Resolution Last Treating Co mments Source Name Details Category Date Date Treatment Clinician Date 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 Clinician (SIG) Name Name NOVOLIN Yes MD 70/30 100 2-10 Anderso unit/mL 00:00: n (70-30) 00 injection lisinopril Yes (PRINIVIL,Z 2-05 Anderso ESTRIL) 10 00:00: n mg tablet 00 QUEtiapine Yes (SEROquel) 1-19 Anderso 100 mg 00:00: n tablet 00 oxyCODONE-a Yes cetaminophe 1-17 Anderso n 00:00: n (PERCOCET) 00 10 mg-325 mg per tablet buPROPion Yes (WELLBUTRIN -17 Anderso XL) 150 mg 00:00: n 24 [...] 00:00: n 00 vitamin A Yes palmitate-v 8- Anderso itamin D2 00:00: n 10,000-400 00 [...] Date/Time Type Type Clinicians Facility Department ID 2022-01-03 2022-01-03 Outpatient [facility] PRIV PRIV [id number] [facility] 02:50:00 02:50:00 ter_S [id number] Medica l 2022-01-02 2022-01-02 Outpatient GC_[facility]_Sei PRIV PRIV [id number] [facility] 01:02:00 01:02:00 ter_S [id number] Medica l 2021-12-01 2021-12-01 Outpatient GC_[facility]HC_Sei PRIV PRIV [id number] [facility] 05:45:00 05:45:00 ter_S [id number] Medica l 2021-12-01 2021-12-01 Outpatient Seiter, PRIV PRIV [id number] 00:00:00 00:00:00 Laureano Juan [id number] 2021-12-01 2021-12-01 Outpatient Seiter, PRIV PRIV [id number] 00:00:00 00:00:00 Laureano Martinez [id number] 2021-11-30 2021-11-30 Outpatient [facility] PRIV PRIV [id number] [facility] 11:37:00 11:37:00 ter_S [id number] Medica l 2021-10-23 2021-11-28 Inpatient ER APRIL, [facility] Cardiac [id number] [facility] 18:29:00 14:33:00 EM Cath 2021-10-26 2021-10-26 Outpatient [facility] [id number] [facility] 00:00:00 23:59:00 [facility] Results Test Description Test Time Test Comments Results Result Comments Source BLOOD CULTURE 2021-11-30 19:00:46 Test Item Value Reference Range Interpretation Comme nts CULTURE (BEAKER) (test code = 1095) No growth in 5 days BLOOD [id number] 19:00:46 Test Item Value Reference Range Interpretation Comments CULTURE (BEAKER) (test No growth in 5 days code = 1095) The specimen volume collected for this blood culture was below the optimum (10 mL per bottle or 20 mL total). Use of lower volumes may adversely affect recovery and/or detection times of some organisms.POCT-GLUCOSE [id number] 12:06:41 Test Item Value Reference Range Interpretation Comments POC-GLUCOSE METER 217 mg/dL 70-110 H : TESTED A T [facility] 6720 (BEAKER) (test code = [facility], 1538) 51304: Shaper Setter/Techni stephanie ID = [id number] for GUTHRIEMARIA E GARCIA POCT-GLUCOSE [id number] 07:55:37 Test Item Value Reference Range Interpretation Comments POC-GLUCOSE METER 197 mg/dL 70-110 H : TESTED A T [facility] 6720 (BEAKER) (test code = [facility], 1538) 50477: Shaper Setter/Techni stephanie ID = [id number] for JERRIMARIA E GARCIA HEPATIC FUNCTION [id number] 06:54:14 Test Item Value Reference Range Interpretation [...] (test code = 20 U/L 6-55 347) Shaper Setter ID - MIRI [id number] 06:54:13 Test Item Value Reference Range Interpretation Comments PHOSPHORUS (BEAKER) (test code = 4.8 mg/dL 2.3-4.7 H 604) Shaper Setter REID CHERY WBASIC METABOLIC [id number] 06:54:12 Test Item Value Reference Range Interpretation [...] S NOT APPLICABLE FOR DIALYSIS PATIEN TS. Shaper Setter REID CHERY [id number] 06:54:12 Test Item Value Reference Range Interpretation Comments MAGNESIUM (BEAKER) (test code = 2.1 mg/dL 1.6-2.6 627) Shaper Setter REID CHERY WCBC W/PLT COUNT & AUTO [id number] 06:37:29 Test Item Value Reference Range Interpretation [...] PERCENT (BEAKER) (test code = 2801) POCT-GLUCOSE [id number] 20:43:34 Test Item Value Reference Range Interpretation Comments POC-GLUCOSE METER 115 mg/dL 70-110 H : TESTED A T [facility] 67[facility] (BEAKER) (test code = [place], 1538) 58940: Shaper Setter/Techni stephanie ID = [id number] for Re yes, Sairy POCT-GLUCOSE [id number] 17:19:38 Test Item Value Reference Range Interpretation Comments POC-GLUCOSE METER 122 mg/dL 70-110 H : TESTED A T [facility] 6720 (BEAKER) (test code = [facility], 1538) 24029: Shaper Setter/Techni stephanie ID = [id number] for DEBRA REID POCT-GLUCOSE [id number] 12:30:32 Test Item Value Reference Range Interpretation Comments POC-GLUCOSE METER 233 mg/dL 70-110 H : TESTED A T [facility] 6720 (BEAKER) (test code = [facility], 1538) 38058: Shaper Setter/Techni stephanie ID = [id number] for DEBRA REID POCT-GLUCOSE [id number] 08:17:18 Test Item Value Reference Range Interpretation Comments POC-GLUCOSE METER 182 mg/dL 70-110 H : TESTED A T [facility] 6720 (BEAKER) (test code = [facility], 1538) 06926: Shaper Setter/Techni stephanie ID = [id number] for DEBRA REID HEPATIC FUNCTION [id number] 08:15:38 Test Item Value Reference Range Interpretation [...] (test code = 17 U/L 6-55 347) Shaper Setter ID - PANTERA [id number] 08:15:37 Test Item Value Reference Range Interpretation Comments MAGNESIUM (BEAKER) (test code = 1.9 mg/dL 1.6-2.6 627) Shaper Setter ID - PANTERA [id number] 08:15:37 Test Item Value Reference Range Interpretation Comments PHOSPHORUS (BEAKER) (test code = 4.1 mg/dL 2.3-4.7 604) Shaper Setter ID - PANTERA MBASIC METABOLIC [id number] 08:15:36 Test Item Value Reference Range Interpretation [...] S NOT APPLICABLE FOR DIALYSIS PATIEN TS. Shaper Setter ID - PANTERA MCBC W/PLT COUNT & AUTO [id number] 07:57:49 Test Item Value Reference Range Interpretation [...] PERCENT (BEAKER) (test code = 2801) POCT-GLUCOSE [id number] 21:14:48 Test Item Value Reference Range Interpretation Comments POC-GLUCOSE METER 138 mg/dL 70-110 H : TESTED A T [facility] 6720 (BEAKER) (test code = [facility], 153) 12153: Shaper Setter/Techni stephanie ID = [id number] for Co rtez, Pauline POCT-GLUCOSE [id number] 17:27:56 Test Item Value Reference Range Interpretation Comments POC-GLUCOSE METER 162 mg/dL 70-110 H : TESTED A T [facility] 6720 (BEAKER) (test code = [facility], 1538) 44073: Shaper Setter/Techni stephanie ID = [id number] for FELIBERTONIKOLAS REYESCY POCT-GLUCOSE [id number] 12:46:39 Test Item Value Reference Range Interpretation Comments POC-GLUCOSE METER 189 mg/dL 70-110 H : TESTED A T [facility] (BEAKER) (test code = [facility] [place], 1538) 75376: Shaper Setter/Techni stephanie ID = [id number] for DEBRA REID HEPATIC FUNCTION [id number] 07:37:51 Test Item Value Reference Range Interpretation [...] (test code = 21 U/L 6-55 347) Shaper Setter ID - PANTERA [id number] 07:37:50 Test Item Value Reference Range Interpretation Comments PHOSPHORUS (BEAKER) (test code = 3.3 mg/dL 2.3-4.7 604) Shaper Setter ID - PANTERA [id number] 07:37:49 Test Item Value Reference Range Interpretation Comments MAGNESIUM (BEAKER) (test code = 1.9 mg/dL 1.6-2.6 627) Shaper Setter ID - PANTERA MBASIC METABOLIC [id number] 07:37:49 Test Item Value Reference Range Interpretation [...] S NOT APPLICABLE FOR DIALYSIS PATIEN TS. Shaper Setter ID - PANTERA MPOCT-GLUCOSE [id number] 07:19:32 Test Item Value Reference Range Interpretation Comments POC-GLUCOSE METER 169 mg/dL 70-110 H : TESTED A T [facility] (BEAKER) (test code = [facility] [place], 1538) 84333: Shaper Setter/Techni stephanie ID = [id number] for DEBRA REID CBC W/PLT COUNT & AUTO [id number] 07:07:46 Test Item Value Reference Range Interpretation [...] code = 2801) RAD, ABDOMEN/KUB, 1 VIEW [id number] 03:08:00Reason for exam:->abdominal painL[facility] VICTOR : 1960 Sex: MFINAL REPORT CLINICAL HISTORY: abdominal pain TECHNIQUE: RAD, ABDOMEN/KUB, 1 VIEW AP COMPARISON: Plain radiograph the abdomen dated 10/24/2021 FINDINGS: Nonobstructive bowel gas pattern without distended loops of bowel. Large stool burden throughout the large bowel. Vascularcalcifications. Postsurgical changes of a median sternotomy. IVC filter overlies the right lumbar spine. Lung bases are clear. Signed: Gris Mendiola MDReport Verified Date/Time: 11/26/2021 03:08:36 URINALYSIS W/ REFLEX [...] = 1521) SOURCE(BEAKER) (test code = 2795) Shaper Setter ID - [auto]Shaper Setter ID - techPOCT-GLUCOSE [id number] 21:39:08 Test Item Value Reference Range Interpretation Comments POC-GLUCOSE METER 156 mg/dL 70-110 H : TESTED A T [facility] 6720 (BEAKER) (test code = [facility] [place], 1538) 55233: Shaper Setter/Techni stephanie ID = [id number] for Co rtez, Pauline POCT-GLUCOSE [id number] 17:24:17 Test Item Value Reference Range Interpretation Comments POC-GLUCOSE METER 192 mg/dL 70-110 H : TESTED A T [facility] 6720 (REILLY) (test code = [facility], 1538) 55489: Shaper Setter/Techni stephanie ID = [id number] for DEBRA REID RAD, CHEST, 1 VIEW, NON [id number] 14:59:00Reason for exam:->sobShould this be performed at the bedside?->Yes [facility] VICTOR : 1960 Sex: MFINAL REPORT CLINICAL HISTORY: sob TECHNIQUE: 1 view of the chest. COMPARISON: 11/08/2021 IMPRESSION: There are no focal infiltrates or effusions. The cardiomediastinal silhouette is magnified by technique with sternotomy wires. Signed: Yvette Bingham Verified Date/Time: 11/25/2021 14:59:07 Reading Location: [facility] Radiology Reading Room POCT-GLUCOSE METER 2021-11-25 12:57:11 Test Item Value Reference Range Interpretation Comments POC-GLUCOSE METER 267 mg/dL 70-110 H : TESTED A T [facility]20 (BEAKER) (test code = [facility], 1538) 01345: Shaper Setter/Techni stephanie ID = [id number] for DEBRA REID POCT-GLUCOSE [id number] 08:16:53 Test Item Value Reference Range Interpretation Comments POC-GLUCOSE METER 165 mg/dL 70-110 H : TESTED A T [facility] 6720 (REILLY) (test code = [facility], 1538) 23451: Shaper Setter/Techni stephanie ID = [id number] for DEBRA REID [id number] 04:56:21 Test Item Value Reference Range Interpretation Comments PHOSPHORUS (BEAKER) (test code = 3.9 mg/dL 2.3-4.7 604) Shaper Setter ID - EFE GHEPATIC FUNCTION [id number] 04:56:21 Test Item Value Reference Range Interpretation [...] (test code = 20 U/L 6-55 347) Shaper Setter ID - EFE GBASIC METABOLIC [id number] 04:56:20 Test Item Value Reference Range Interpretation [...] S NOT APPLICABLE FOR DIALYSIS PATIEN TS. Shaper Setter ID - EFE [id number] 04:56:20 Test Item Value Reference Range Interpretation Comments MAGNESIUM (BEAKER) (test code = 1.9 mg/dL 1.6-2.6 627) Shaper Setter ID - EFE GB-TYPE NATRIURETIC FACTOR (BNP)2021-11-25 04:47:51 Test Item Value Reference Range Interpretation Comments B-TYPE NATRIURETIC PEPTIDE (BEAKER) 938 pg/mL 0-100 H (test code = 700) Shaper Setter ID - EFE GCBC W/PLT COUNT & AUTO [id number] 04:25:19 Test Item Value Reference Range Interpretation [...] PERCENT (BEAKER) (test code = 2801) POCT-GLUCOSE [id number] 21:13:33 Test Item Value Reference Range Interpretation Comments POC-GLUCOSE METER 100 mg/dL 70-110 : TESTED A T [facility] 6720 ([facility]) (test code = [facility], [facility]8) 66000: Shaper Setter/Techni stephanie ID = [id number] for RO NHAN ROBBINSO POCT-GLUCOSE [id number] 17:39:46 Test Item Value Reference Range Interpretation Comments POC-GLUCOSE METER 80 mg/dL 70-110 : TESTED A T [facility] 6720 (BEAKER) (test code = [facility], [facility]) 59515: Shaper Setter/Techni stephanie ID = [id number] for Aguilar era, Marly POCT-GLUCOSE [id number] 13:07:43 Test Item Value Reference Range Interpretation Comments POC-GLUCOSE METER 159 mg/dL 70-110 H : TESTED A T [facility] 6720 (BEAKER) (test code = [facility], 1538) 93302: Shaper Setter/Techni stephanie ID = [id number] for Ba rrera, Marly POCT-GLUCOSE [id number] 08:53:49 Test Item Value Reference Range Interpretation Comments POC-GLUCOSE METER 248 mg/dL 70-110 H : TESTED A T [facility] 6720 (BEAKER) (test code = [facility], 1538) 34018: Shaper Setter/Techni stephanie ID = [id number] for Ba rrera, Marly [id number] 04:37:19 Test Item Value Reference Range Interpretation Comments PHOSPHORUS (BEAKER) (test code = 4.0 mg/dL 2.3-4.7 604) Shaper Setter ID - BSHEPATIC FUNCTION [id number] 04:37:19 Test Item Value Reference Range Interpretation [...] (test code = 21 U/L 6-55 347) Shaper Setter ID - BSBASIC METABOLIC [id number] 04:37:18 Test Item Value Reference Range Interpretation [...] S NOT APPLICABLE FOR DIALYSIS PATIEN TS. Shaper Setter ID - [id number] 04:37:18 Test Item Value Reference Range Interpretation Comments MAGNESIUM (BEAKER) (test code = 2.0 mg/dL 1.6-2.6 627) Shaper Setter ID - BSCBC W/PLT COUNT & AUTO [id number] 03:57:41 Test Item Value Reference Range Interpretation [...] PERCENT (BEAKER) (test code = 2801) POCT-GLUCOSE [id number] 20:45:13 Test Item Value Reference Range Interpretation Comments POC-GLUCOSE METER 189 mg/dL 70-110 H : TESTED A T [facility] 6720 (BEAKER) (test code = [facility], 1538) 88484: Shaper Setter/Techni stephanie ID = [id number] for RO ROSENDO, NEO POCT-GLUCOSE [id number] 16:52:18 Test Item Value Reference Range Interpretation Comments POC-GLUCOSE METER 223 mg/dL 70-110 H : TESTED A T [facility] 6720 (BEAKER) (test code = [facility], 1538) 80312: Shaper Setter/Techni stephanie ID = [id number] for AG BLET, JAM POCT-GLUCOSE [id number] 12:14:50 Test Item Value Reference Range Interpretation Comments POC-GLUCOSE METER 194 mg/dL 70-110 H : TESTED A T [facility] 6720 (BEAKER) (test code = [facility], 1538) 14535: Shaper Setter/Techni stephanie ID = [id number] for AG BLET, JAM SARS-COV2/RT-PCR ([facility])2021-11-23 10:17:26 Test Item Value Reference Range Interpretation Comments SARS-COV2/RT-PCR (test Negative Not Detected, Negative, code = 9699924) See external report for linked test SARS-COV-[address] [facility] (test code = 4890365) Negative result for this test determines that [...] 564(g) of the Act.Fact Sheet for Healthcare Providers:https://www.[employer]/sites/default/files/product/documents/Fact_Shee n_WJ_Ztbfdqgxj_Ukcc_SXGU-HmC-6.pdfFact Sheet for Healthcare Patients:https://www.[employer]/sites/default/files/product/ documents/Wffo_Heyhr_Kbpeahtj_Itng_NQSJ-OtU-5.pdfPerforming Laboratory:[facility], [place] [address]-OERGRLQ METER 2021-11-23 08:30:53 Test Item Value Reference Range Interpretation Comments POC-GLUCOSE METER 163 mg/dL 70-110 H : TESTED A T [facility] 67[address] (BEAKER) (test code = [facility], 1538) 69192: Shaper Setter/Techni stephanie ID = [id number] for JAM MCMILLAN HEPATIC FUNCTION [id number] 05:15:32 Test Item Value Reference Range Interpretation [...] (test code = 24 U/L 6-55 347) Shaper Setter ID - PANTERA [id number] 05:15:31 Test Item Value Reference Range Interpretation Comments MAGNESIUM (BEAKER) (test code = 2.0 mg/dL 1.6-2.6 627) Shaper Setter ID - PANTERA [id number] 05:15:31 Test Item Value Reference Range Interpretation Comments PHOSPHORUS (BEAKER) (test code = 3.8 mg/dL 2.3-4.7 604) Shaper Setter ID - PANTERA MBASIC METABOLIC [id number] 05:15:30 Test Item Value Reference Range Interpretation [...] S NOT APPLICABLE FOR DIALYSIS PATIEN TS. Shaper Setter ID - PANTERA MCBC W/PLT COUNT & AUTO [id number] 04:35:16 Test Item Value Reference Range Interpretation [...] PERCENT (BEAKER) (test code = 2801) POCT-GLUCOSE [id number] 20:41:20 Test Item Value Reference Range Interpretation Comments POC-GLUCOSE METER 171 mg/dL 70-110 H : TESTED A T [facility] 6720 (BEAKER) (test code = [facility], 1538) 19677: Shaper Setter/Techni stephanie ID = [id number] for DAVID FISHMAN POCT-GLUCOSE [id number] 17:23:57 Test Item Value Reference Range Interpretation Comments POC-GLUCOSE METER 244 mg/dL 70-110 H : TESTED A T [facility] 6720 (BEAKER) (test code = [facility], 1538) 70362: Shaper Setter/Techni stephanie ID = [id number] for DEBRA REID POCT-GLUCOSE [id number] 12:28:36 Test Item Value Reference Range Interpretation Comments POC-GLUCOSE METER 298 mg/dL 70-110 H : TESTED A T [facility] 6720 (BEAKER) (test code = [facility], 1538) 62966: Shaper Setter/Techni stephanie ID = [id number] for FL ORES (V), RAMIRO POCT-GLUCOSE [id number] 08:32:57 Test Item Value Reference Range Interpretation Comments POC-GLUCOSE METER 177 mg/dL 70-110 H : TESTED A T [facility] 6720 (BEAKER) (test code = [facility], 1538) 24509: Shaper Setter/Techni stephanie ID = [id number] for DEBRA REID [id number] 04:35:23 Test Item Value Reference Range Interpretation Comments PHOSPHORUS (BEAKER) (test code = 3.5 mg/dL 2.3-4.7 604) Shaper Setter ID - MIRI WHEPATIC FUNCTION [id number] 04:35:23 Test Item Value Reference Range Interpretation [...] (test code = 24 U/L 6-55 347) Shaper Setter ID Doug CHERY WBASIC METABOLIC [id number] 04:35:22 Test Item Value Reference Range Interpretation [...] S NOT APPLICABLE FOR DIALYSIS PATIEN TS. Shaper Setter ID Doug CHERY [id number] 04:35:22 Test Item Value Reference Range Interpretation Comments MAGNESIUM (BEAKER) (test code = 2.0 mg/dL 1.6-2.6 627) Shaper Setter ID Doug CHERY WCBC W/PLT COUNT & AUTO [id number] 04:07:51 Test Item Value Reference Range Interpretation [...] PERCENT (BEAKER) (test code = 2801) POCT-GLUCOSE [id number] 21:15:31 Test Item Value Reference Range Interpretation Comments POC-GLUCOSE METER 177 mg/dL 70-110 H : TESTED A T [facility] (BEAKER) (test code = [place], 1538) 88965: Shaper Setter/Techni stephanie ID = [id number] for Maria Eugenia Serrano POCT-GLUCOSE [id number] 17:21:31 Test Item Value Reference Range Interpretation Comments POC-GLUCOSE METER 139 mg/dL 70-110 H : TESTED A T [facility] 6720 (BEAKER) (test code = [facility], [facility]) 94123: Shaper Setter/Techni stephanie ID = [id number] for DEBRA REID POCT-GLUCOSE [id number] 12:56:15 Test Item Value Reference Range Interpretation Comments POC-GLUCOSE METER 208 mg/dL 70-110 H : TESTED A T [facility] 6720 (BEAKER) (test code = [facility], [facility]) 85253: Shaper Setter/Techni stephanie ID = [id number] for DEBRA REID POCT-GLUCOSE [id number] 10:52:07 Test Item Value Reference Range Interpretation Comments POC-GLUCOSE METER 289 mg/dL 70-110 H : TESTED A T [facility] 6720 (BEAKER) (test code = [facility], [facility]) 87333: Shaper Setter/Techni stephanie ID = [id number] for FL ORES (V), RAMIRO POCT-GLUCOSE [id number] 08:52:22 Test Item Value Reference Range Interpretation Comments POC-GLUCOSE METER 189 mg/dL 70-110 H : TESTED A T [facility] 6720 (BEAKER) (test code = [facility], [facility]) 19580: Shaper Setter/Techni stephanie ID = [id number] for DEBRA REID [id number] 07:15:39 Test Item Value Reference Range Interpretation Comments PHOSPHORUS (BEAKER) (test code = 3.4 mg/dL 2.3-4.7 604) Shaper Setter ID - DBHEPATIC FUNCTION [id number] 07:15:39 Test Item Value Reference Range Interpretation [...] (test code = 22 U/L 6-55 347) Shaper Setter ID - [id number] 07:15:38 Test Item Value Reference Range Interpretation Comments MAGNESIUM (BEAKER) (test code = 2.1 mg/dL 1.6-2.6 627) Shaper Setter ID - DBBASIC METABOLIC [id number] 07:15:37 Test Item Value Reference Range Interpretation [...] S NOT APPLICABLE FOR DIALYSIS PATIEN TS. Shaper Setter ID - DBCBC W/PLT COUNT & AUTO [id number] 06:52:22 Test Item Value Reference Range Interpretation [...] PERCENT (BEAKER) (test code = 2801) POCT-GLUCOSE [id number] 21:47:19 Test Item Value Reference Range Interpretation Comments POC-GLUCOSE METER 151 mg/dL 70-110 H : TESTED A T [facility] (BEAKER) (test code = [facility], 1538) 11876: Shaper Setter/Techni stephanie ID = [id number] for Co rtez, Pauline POCT-GLUCOSE [id number] 17:46:14 Test Item Value Reference Range Interpretation Comments POC-GLUCOSE METER 191 mg/dL 70-110 H : TESTED A T [facility] 6720 (BEAKER) (test code = [facility], 1538) 25210: Shaper Setter/Techni stephanie ID = [id number] for Ba rrera, Marly POCT-GLUCOSE [id number] 12:57:28 Test Item Value Reference Range Interpretation Comments POC-GLUCOSE METER 233 mg/dL 70-110 H : TESTED A T [facility] 6720 (BEAKER) (test code = [facility], 1538) 28973: Shaper Setter/Techni stephanie ID = [id number] for Ba rrera, Marly POCT-GLUCOSE [id number] 09:00:53 Test Item Value Reference Range Interpretation Comments POC-GLUCOSE METER 176 mg/dL 70-110 H : TESTED A T [facility] 6720 (BEAKER) (test code = [facility], 1538) 98898: Shaper Setter/Techni stephanie ID = [id number] for Ba rrera, Marly HEPATIC FUNCTION [id number] 07:44:22 Test Item Value Reference Range Interpretation [...] (test code = 26 U/L 6-55 347) Shaper Setter ID - KEVIN LOperator ID - PIAYA L(CELLAVISION MANUAL DIFF)2021-11-20 07:43:10 [...] CONCENTRATION Increased (CELLAVISION)(BEAKER) (test code = 3438) Shaper Setter ID - jacob Martínez comments: Slide comments:CBC W/PLT COUNT & AUTO [id number] 07:43:04 Test Item Value Reference Range Interpretation [...] WBC 0-0 (BEAKER) (test code = 413) [id number] 07:09:33 Test Item Value Reference Range Interpretation Comments PHOSPHORUS (BEAKER) (test code = 3.6 mg/dL 2.3-4.7 604) Shaper Setter ID - PIAYA LBASIC METABOLIC [id number] 07:09:32 Test Item Value Reference Range Interpretation [...] S NOT APPLICABLE FOR DIALYSIS PATIEN TS. Shaper Setter ID - PONCHOALESHA [id number] 07:09:32 Test Item Value Reference Range Interpretation Comments MAGNESIUM (BEAKER) (test code = 2.1 mg/dL 1.6-2.6 627) Shaper Setter ID - PONCHOALESHA LPOCT-GLUCOSE [id number] 20:45:26 Test Item Value Reference Range Interpretation Comments POC-GLUCOSE METER 145 mg/dL 70-110 H : TESTED A T [facility] 6720 (BEAKER) (test code = [facility], 1538) [address]196: Shaper Setter/Techni stephanie ID = [id number] for Co rtez, Pauline POCT-GLUCOSE [id number] 17:39:40 Test Item Value Reference Range Interpretation Comments POC-GLUCOSE METER 226 mg/dL 70-110 H : TESTED A T [facility] 6720 (BEAKER) (test code = [facility], 1538) 25134: Shaper Setter/Techni stephanie ID = [id number] for Ba rrera, Marly POCT-GLUCOSE [id number] 12:39:23 Test Item Value Reference Range Interpretation Comments POC-GLUCOSE METER 186 mg/dL 70-110 H : TESTED A T [facility] 6720 (BEAKER) (test code = [facility], 1538) 16934: Shaper Setter/Techni stephanie ID = [id number] for Ba rrera, Marly CBC W/PLT COUNT & AUTO [id number] 12:02:22 Test Item Value Reference Range Interpretation [...] 1+ few (test code = 478) POCT-GLUCOSE [id number] 08:49:20 Test Item Value Reference Range Interpretation Comments POC-GLUCOSE METER 153 mg/dL 70-110 H : TESTED A T [facility] 6720 (BEAKER) (test code = [place], 1538) 528[address]: Shaper Setter/Techni stephanie ID = [id number] for Marly Gardner HEPATIC FUNCTION [id number] 07:09:03 Test Item Value Reference Range Interpretation [...] (test code = 25 U/L 6-55 347) Shaper Setter ID - PANTERA [id number] 07:09:02 Test Item Value Reference Range Interpretation Comments PHOSPHORUS (BEAKER) (test code = 3.4 mg/dL 2.3-4.7 604) Shaper Setter ID - PANTERA [id number] 07:09:01 Test Item Value Reference Range Interpretation Comments MAGNESIUM (BEAKER) (test code = 2.2 mg/dL 1.6-2.6 627) Shaper Setter ID - PANTERA MCOMPREHENSIVE METABOLIC [id number] 07:09:00 Test Item Value Reference Range Interpretation [...] S NOT APPLICABLE FOR DIALYSIS PATIEN TS. Shaper Setter ID - PANTERA MB-TYPE NATRIURETIC FACTOR (BNP)2021-11-19 06:52:13 Test Item Value Reference Range Interpretation Comments B-TYPE NATRIURETIC PEPTIDE (BEAKER) 365 pg/mL 0-100 H (test code = 700) Shaper Setter ID - PANTERA MCALCIUM, [id number] 06:28:21 Test Item Value Reference Range Interpretation Comments CALCIUM IONIZED (BEAKER) (test 1.15 mmol/L 1.12-1.27 code = 698) PH, BLOOD (BEAKER) (test code = 7.39 1810) POCT-GLUCOSE [id number] 20:49:23 Test Item Value Reference Range Interpretation Comments POC-GLUCOSE METER 143 mg/dL 70-110 H : [facility] [place] (test code = [place], 1538) [address]: Shaper Setter/Techni stephanie ID = [id number] for Co rtez, Pauline POCT-GLUCOSE [id number] 17:38:56 Test Item Value Reference Range Interpretation Comments POC-GLUCOSE METER 156 mg/dL 70-110 H : TESTED A T [facility] 6720 (BEAKER) (test code = [facility], 1538) 71560: Shaper Setter/Techni stephanie ID = [id number] for Ba arelis, Marly POCT-GLUCOSE [id number] 12:34:54 Test Item Value Reference Range Interpretation Comments POC-GLUCOSE METER 134 mg/dL 70-110 H : TESTED A T [facility] 6720 (BEAKER) (test code = [facility], 1538) 83714: Shaper Setter/Techni stephanie ID = [id number] for Ba rrera, Marly POCT-GLUCOSE [id number] 08:49:53 Test Item Value Reference Range Interpretation Comments POC-GLUCOSE METER 81 mg/dL 70-110 : TESTED A T [facility] 6720 (BEAKER) (test code = [facility], 1538) 85247: Shaper Setter/Techni stephanie ID = [id number] for Aguilar karina, Marly (CELLAVISION MANUAL DIFF)2021-11-18 08:31:47 Test Item Value [...] CONCENTRATION Increased (CELLAVISION)(BEAKER) (test code = 3438) Shaper Setter ID - jacob Martínez comments: Slide comments:CBC W/PLT COUNT & AUTO [id number] 08:31:46 Test Item Value Reference Range Interpretation [...] (BEAKER) (test code = 413) HEPATIC FUNCTION [id number] 06:54:22 Test Item Value Reference Range Interpretation [...] (test code = 25 U/L 6-55 347) Shaper Setter ID - [id number] 06:54:21 Test Item Value Reference Range Interpretation Comments PHOSPHORUS (BEAKER) (test code = 3.3 mg/dL 2.3-4.7 604) Shaper Setter ID - DBBASIC METABOLIC [id number] 06:54:20 Test Item Value Reference Range Interpretation [...] S NOT APPLICABLE FOR DIALYSIS PATIEN TS. Shaper Setter ID - [id number] 06:54:20 Test Item Value Reference Range Interpretation Comments MAGNESIUM (BEAKER) (test code = 2.2 mg/dL 1.6-2.6 627) Shaper Setter ID - DBPOCT-GLUCOSE [id number] 21:15:15 Test Item Value Reference Range Interpretation Comments POC-GLUCOSE METER 134 mg/dL 70-110 H : TESTED A T [facility] 6720 (BEAKER) (test code = [facility], 1538) 58557: Shaper Setter/Techni stephanie ID = [id number] for KARY VALLE SE POCT-GLUCOSE [id number] 17:25:26 Test Item Value Reference Range Interpretation Comments POC-GLUCOSE METER 150 mg/dL 70-110 H : TESTED A T [facility] 6720 (BEAKER) (test code = [facility], 1538) 52150: Shaper Setter/Techni stephanie ID = [id number] for DEBRA REID POCT-GLUCOSE [id number] 12:34:58 Test Item Value Reference Range Interpretation Comments POC-GLUCOSE METER 143 mg/dL 70-110 H : TESTED A T [facility] 6720 (BEAKER) (test code = [facility], 1538) 99403: Shaper Setter/Techni stephanie ID = [id number] for DEBRA REID BLOOD [id number] 11:50:26 Test Item Value Reference Range Interpretation Comments CULTURE (BEAKER) A From Aerobi c Bottle (test code = Only Coagulase 1095) negative Staphylococcus GRAM STAIN From aerobic RESULT (BEAKER) bottle only: (test code = gram positive 1123) cocci in clusters POCT-GLUCOSE [id number] 07:35:48 Test Item Value Reference Range Interpretation Comments POC-GLUCOSE METER 121 mg/dL 70-110 H : TESTED A T [facility] 6720 (BEAKER) (test code = [place], 1538) 44354: Shaper Setter/Techni stephanie ID = [id number] for DEBRA REID [id number] 06:38:11 Test Item Value Reference Range Interpretation Comments PHOSPHORUS (BEAKER) (test code = 3.3 mg/dL 2.3-4.7 604) Shaper Setter ID - PONCHOALESHA LHEPATIC FUNCTION [id number] 06:38:11 Test Item Value Reference Range Interpretation [...] (test code = 29 U/L 6-55 347) Shaper Setter ID - KEVIN LBASIC METABOLIC [id number] 06:38:10 Test Item Value Reference Range Interpretation [...] S NOT APPLICABLE FOR DIALYSIS PATIEN TS. Shaper Setter ID - KEVIN [id number] 06:38:10 Test Item Value Reference Range Interpretation Comments MAGNESIUM (BEAKER) (test code = 2.1 mg/dL 1.6-2.6 627) Shaper Setter ID - KEVIN LCBC W/PLT COUNT & AUTO [id number] 05:17:12 Test Item Value Reference Range Interpretation [...] PERCENT (BEAKER) (test code = 2801) POCT-GLUCOSE [id number] 20:39:21 Test Item Value Reference Range Interpretation Comments POC-GLUCOSE METER 212 mg/dL 70-110 H : TESTED A T [facility] 6720 (BEAKER) (test code = [facility], 1538) 29882: Shaper Setter/Techni stephanie ID = [id number] for Maria Eugenia Serrano POCT-GLUCOSE [id number] 17:09:39 Test Item Value Reference Range Interpretation Comments POC-GLUCOSE METER 185 mg/dL 70-110 H : TESTED A T [facility] 6720 (BEAKER) (test code = [facility], 1538) 51061: Shaper Setter/Techni stephanie ID = [id number] for DEBRA REID BLOOD [id number] 16:00:32 Test Item Value Reference Range Interpretation Comments CULTURE (BEAKER) (test No growth in 5 days code = 1095) POCT-GLUCOSE [id number] 12:51:48 Test Item Value Reference Range Interpretation Comments POC-GLUCOSE METER 185 mg/dL 70-110 H : TESTED A T [facility] 6720 (BEAKER) (test code = [facility], 1538) 38433: Shaper Setter/Techni stephanie ID = [id number] for DEBRA REID POCT-GLUCOSE [id number] 07:31:44 Test Item Value Reference Range Interpretation Comments POC-GLUCOSE METER 99 mg/dL 70-110 : TESTED A T [facility] 6720 (BEAKER) (test code = [facility], 1538) 38345: Shaper Setter/Techni stephanie ID = [id number] for DEBRA REID CALCIUM, [id number] 06:33:34 Test Item Value Reference Range Interpretation Comments CALCIUM IONIZED (BEAKER) (test 1.17 mmol/L 1.12-1.27 code = 698) PH, BLOOD (BEAKER) (test code = 7.38 1810) HEPATIC FUNCTION [id number] 05:54:36 Test Item Value Reference Range Interpretation [...] (test code = 28 U/L 6-55 347) Shaper Setter ID - KEVIN [id number] 05:54:35 Test Item Value Reference Range Interpretation Comments MAGNESIUM (BEAKER) (test code = 2.2 mg/dL 1.6-2.6 627) Shaper Setter ID - KEVIN [id number] 05:54:35 Test Item Value Reference Range Interpretation Comments PHOSPHORUS (BEAKER) (test code = 3.4 mg/dL 2.3-4.7 604) Shaper Setter ID - KEVIN LCOMPREHENSIVE METABOLIC [id number] 05:54:34 Test Item Value Reference Range Interpretation [...] S NOT APPLICABLE FOR DIALYSIS PATIEN TS. Shaper Setter ID - PIAYA LCBC W/PLT COUNT & AUTO [id number] 05:33:32 Test Item Value Reference Range Interpretation [...] PERCENT (BEAKER) (test code = 2801) POCT-GLUCOSE [id number] 21:14:10 Test Item Value Reference Range Interpretation Comments POC-GLUCOSE METER 241 mg/dL 70-110 H : TESTED A T [facility] 6720 (BEAKER) (test code = [facility], 1538) 56384: Shaper Setter/Techni stephanie ID = [id number] for Do , Maryam POCT-GLUCOSE [id number] 18:06:54 Test Item Value Reference Range Interpretation Comments POC-GLUCOSE METER 294 mg/dL 70-110 H : TESTED A T [facility] 6720 (BEAKER) (test code = [facility], 1538) 26935: Shaper Setter/Techni stephanie ID = [id number] for Ba rrera, Marly POCT-GLUCOSE [id number] 12:53:39 Test Item Value Reference Range Interpretation Comments POC-GLUCOSE METER 209 mg/dL 70-110 H : TESTED A T [facility] 6720 (BEAKER) (test code = [facility], 1538) 04828: Shaper Setter/Techni stephanie ID = [id number] for Marly Gardner POCT-GLUCOSE [id number] 08:33:05 Test Item Value Reference Range Interpretation Comments POC-GLUCOSE METER 98 mg/dL 70-110 : TESTED A T [facility] 6720 (BEAKER) (test code = [facility], 1538) 04910: Shaper Setter/Techni stephanie ID = [id number] for Marly Berry [id number] 06:12:52 Test Item Value Reference Range Interpretation Comments MAGNESIUM (BEAKER) (test code = 2.1 mg/dL 1.6-2.6 627) Shaper Setter ID - KEVIN [id number] 06:12:52 Test Item Value Reference Range Interpretation Comments PHOSPHORUS (BEAKER) (test code = 3.8 mg/dL 2.3-4.7 604) Shaper Setter ID - KEVIN LHEPATIC FUNCTION [id number] 06:12:52 Test Item Value Reference Range Interpretation [...] (test code = 27 U/L 6-55 347) Shaper Setter ID - KEVIN LCOMPREHENSIVE METABOLIC [id number] 06:12:51 Test Item Value Reference Range Interpretation [...] S NOT APPLICABLE FOR DIALYSIS PATIEN TS. Shaper Setter ID Doug BROWN LB-TYPE NATRIURETIC FACTOR (BNP)2021-11-15 06:04:24 Test Item Value Reference Range Interpretation Comments B-TYPE NATRIURETIC PEPTIDE (BEAKER) 211 pg/mL 0-100 H (test code = 700) Shaper Setter ID - KEVIN LCBC W/PLT COUNT & AUTO [id number] 05:38:14 Test Item Value Reference Range Interpretation [...] PERCENT (BEAKER) (test code = 2801) CALCIUM, [id number] 05:37:55 Test Item Value Reference Range Interpretation Comments CALCIUM IONIZED (BEAKER) (test 1.10 mmol/L 1.12-1.27 L code = 698) PH, BLOOD (BEAKER) (test code = 7.40 1810) POCT-GLUCOSE [id number] 21:42:36 Test Item Value Reference Range Interpretation Comments POC-GLUCOSE METER 240 mg/dL 70-110 H : TESTED A T [facility] 6720 (BEAKER) (test code = [facility], 1538) 27497: Shaper Setter/Techni stephanie ID = [id number] for [place] POCT-GLUCOSE [id number] 18:05:51 Test Item Value Reference Range Interpretation Comments POC-GLUCOSE METER 179 mg/dL 70-110 H : TESTED A T [facility] 6720 (BEAKER) (test code = [facility], 1538) 58212: Shaper Setter/Techni stephanie ID = [id number] for ADELINE MARIA E POCT-GLUCOSE [id number] 12:11:35 Test Item Value Reference Range Interpretation Comments POC-GLUCOSE METER 206 mg/dL 70-110 H : TESTED A T [facility] 6720 (BEAKER) (test code = [facility], 1538) 70862: Shaper Setter/Techni stephanie ID = [id number] for ADELINE MARIA E POCT-GLUCOSE [id number] 09:39:44 Test Item Value Reference Range Interpretation Comments POC-GLUCOSE METER 126 mg/dL 70-110 H : TESTED A T [facility] 6720 (BEAKER) (test code = [facility], [facility]) 01468: Shaper Setter/Techni stephanie ID = [id number] for DELIOJABIER MARIA E CALCIUM, [id number] 04:21:47 Test Item Value Reference Range Interpretation Comments CALCIUM IONIZED (BEAKER) (test 1.12 mmol/L 1.12-1.27 code = 698) PH, BLOOD (BEAKER) (test code = 7.38 1810) HEPATIC FUNCTION [id number] 04:16:11 Test Item Value Reference Range Interpretation [...] (test code = 27 U/L 6-55 347) Shaper Setter ID - EFE [id number] 04:16:10 Test Item Value Reference Range Interpretation Comments MAGNESIUM (BEAKER) (test code = 2.2 mg/dL 1.6-2.6 627) Shaper Setter ID - EFE [id number] 04:16:10 Test Item Value Reference Range Interpretation Comments PHOSPHORUS (BEAKER) (test code = 3.6 mg/dL 2.3-4.7 604) Shaper Setter ID - EFE GCOMPREHENSIVE METABOLIC [id number] 04:16:09 Test Item Value Reference Range Interpretation [...] S NOT APPLICABLE FOR DIALYSIS PATIEN TS. Shaper Setter ID - EFE GCBC W/PLT COUNT & AUTO [id number] 03:55:58 Test Item Value Reference Range Interpretation [...] PERCENT (BEAKER) (test code = 2801) POCT-GLUCOSE [id number] 20:27:30 Test Item Value Reference Range Interpretation Comments POC-GLUCOSE METER 200 mg/dL 70-110 H : TESTED A T [facility] 6720 (BEAKER) (test code = [facility], 1538) 49519: Shaper Setter/Techni stephanie ID = [id number] for Co rtez, [place] POCT-GLUCOSE [id number] 17:30:38 Test Item Value Reference Range Interpretation Comments POC-GLUCOSE METER 249 mg/dL 70-110 H : TESTED A T [facility] 6720 (BEAKER) (test code = [facility], 1538) 91270: Shaper Setter/Techni stephanie ID = [id number] for DEBRA REID POCT-GLUCOSE [id number] 12:24:15 Test Item Value Reference Range Interpretation Comments POC-GLUCOSE METER 173 mg/dL 70-110 H : TESTED A T [facility] 6720 (BEAKER) (test code = [facility], 1538) 71715: Shaper Setter/Techni stephanie ID = [id number] for DEBRA REID [id number] 08:26:43 Test Item Value Reference Range Interpretation Comments MAGNESIUM (BEAKER) (test code = 2.2 mg/dL 1.6-2.6 627) Shaper Setter ID - KEVIN [id number] 08:26:43 Test Item Value Reference Range Interpretation Comments PHOSPHORUS (BEAKER) (test code = 3.6 mg/dL 2.3-4.7 604) Shaper Setter ID - KEVIN LHEPATIC FUNCTION [id number] 08:26:43 Test Item Value Reference Range Interpretation [...] (test code = 28 U/L 6-55 347) Shaper Setter ID - PIAYA LBASIC METABOLIC [id number] 08:26:42 Test Item Value Reference Range Interpretation [...] S NOT APPLICABLE FOR DIALYSIS PATIEN TS. Shaper Setter ID - PIAYA LPOCT-GLUCOSE [id number] 07:17:31 Test Item Value Reference Range Interpretation Comments POC-GLUCOSE METER 130 mg/dL 70-110 H : TESTED A T [facility] 6720 (BEAKER) (test code = [place], 1538) 89179: Shaper Setter/Techni stephanie ID = [id number] for DEBRA REID CBC W/PLT COUNT & AUTO [id number] 04:18:04 Test Item Value Reference Range Interpretation [...] PERCENT (BEAKER) (test code = 2801) POCT-GLUCOSE [id number] 21:00:17 Test Item Value Reference Range Interpretation Comments POC-GLUCOSE METER 90 mg/dL 70-110 : TESTED A T [facility] 6720 (BEAKER) (test code = [facility], 1538) 08958: Shaper Setter/Techni stephanie ID = [id number] for Pauline Read POCT-GLUCOSE [id number] 17:15:06 Test Item Value Reference Range Interpretation Comments POC-GLUCOSE METER 157 mg/dL 70-110 H : TESTED A T [facility] 6720 (BEAKER) (test code = [facility], 1538) 85081: Shaper Setter/Techni stephanie ID = [id number] for DEBRA REID BLOOD CULTURE IDENTIFICATION [id number] 13:16:36 Test Item Value Reference Interpretation Comments Range LISTERIA MONOCYTOGENES Not detected Not detected (test code = 20160710) STAPHYLOCOCCUS (test Detected Not detected A Coagula se negative code = 20160912) Staph specie s (CoNS)- methici llin resistantFirst- line therapy: Vancom ycin MecA DETECTED Possible contamination. The likelihood of pathogenicity i s increased if th e organism is observed in multiple blood cultures obtain ed from separate venipunctures. Reference Range : Not Detected STAPHYLOCOCCUS AUREUS Not detected Not detected (test code = 2645742) STREPTOCOCCUS (test code Not detected Not detected = 5855054) STREPTOCOCCUS AGALACTIAE Not detected Not detected (GROUP B) (test code = 1361947) STREPTOCOCCUS PNEUMONIAE Not detected Not detected (test code = 0233747) STREPTOCOCCUS PYOGENES Not detected Not detected (GROUP A) (test code = 6992675) ACINETOBACTER BAUMANNII Not detected Not detected (test code = 3445124) HAEMOPHILUS INFLUENZAE Not detected Not detected (test code = 9279422) NEISSERIA MENINGITIDIS Not detected Not detected (test code = 9153974) ENTEROBACTERIACEAE (test Not detected Not detected code = 9898128) ENTEROBACTER CLOACOE Not detected Not detected COMPLEX (test code = 8624419) KLEBSIELLA OXYTOCA (test Not detected Not detected code = 2540232) KLEBSIELLA PNEUMONIAE Not detected Not detected (test code = 1650) PROTEUS (test code = Not detected Not detected 8290393) SERRATIA MARCESCENS Not detected Not detected (test code = 4013156) VINEET ALBICANS (test Not detected Not detected code = 5829026) VINEET GLABRATA (test Not detected Not detected code = 0401354) VINEET KRUSEI (test Not detected Not detected code = 5613155) VINEET PARAPSILOSIS Not detected Not detected (test code = 9344211) VINEET TROPICALIS (test Not detected Not detected code = 6628319) ESCHERICHIA COLI (test Not detected Not detected code = 4678313) METHICILLIN-RESISTANCE Detected Not detected A Note: Antimicrobial GENE (test code = resistance can 9200785) occur via multi ple mechanisms. A N ot Detected result for the [employer] antimicrobial resistance gene assays does not indicate antimicrobial susceptibility. Subculturing is required for species identification and susceptibility testing of isolates. VANCOMYCIN-RESISTANCE GENE (test code = 3060452) CARBAPENEM-RESISTANCE GENE (test code = 5857870) ENTEROCOCCUS-BEAKER Not detected Not detected (test code = 9529183) PSEUDOMONAS Not detected Not detected AERUGINOSA-BEAKER (test code = 6598800) Other bacteria and resistance markers not targeted by this PCR panel cannot be excluded; therefore clinical correlation and follow up of serology, culture results, and other molecular studies is required. The results are not intended to be used as the sole means for clinical diagnosis or patient management decisions. This sample was tested at the [facility] using the [employer] FilmArray Blood Culture ID Panel. It is FDA cleared and has been verified and approved by the [facility] for clinical use. This laboratory is CLIA-certified and College ofAmerican Pathologists (CAP)-accredited to perform high complexity testing.POCT-GLUCOSE [id number] 12:33:48 Test Item Value Reference Range Interpretation Comments POC-GLUCOSE METER 116 mg/dL 70-110 H : [facility]ED [facility] T [facility] (Adwanted) (test code = [facility], 1538) 78587: Shaper Setter/Techni stephanie ID = [id number] for DEBRA REID POCT-GLUCOSE [id number] 08:51:57 Test Item Value Reference Range Interpretation Comments POC-GLUCOSE METER 76 mg/dL 70-110 : [facility] (Adwanted) (test code = [facility], 1538) 81480: Shaper Setter/Techni stephanie ID = [id number] for Toshia Collins (CELLAVISION MANUAL DIFF)2021-11-12 08:39:26 [...] CONCENTRATION Adequate (CELLAVISION)(BEAKER) (test code = 3438) Shaper Setter ID - Whitney Mccauley comments: Slide comments:POCT-GLUCOSE METER 2021-11-12 07:15:07 Test Item Value Reference Range Interpretation Comments POC-GLUCOSE METER 76 mg/dL 70-110 : TESTED A T [facility] 6720 (BEAKER) (test code = [place], 1538) 47330: Shaper Setter/Techni stephanie ID = [id number] for DEBRA REID HEPATIC FUNCTION [id number] 05:25:21 Test Item Value Reference Range Interpretation [...] (test code = 23 U/L 6-55 347) Shaper Setter ID - PANTERA MBASIC METABOLIC [id number] 05:25:20 Test Item Value Reference Range Interpretation [...] S NOT APPLICABLE FOR DIALYSIS PATIEN TS. Shaper Setter ID - PANTERA [id number] 05:25:20 Test Item Value Reference Range Interpretation Comments MAGNESIUM (BEAKER) (test code = 2.1 mg/dL 1.6-2.6 627) Shaper Setter ID - PANTERA [id number] 05:25:20 Test Item Value Reference Range Interpretation Comments PHOSPHORUS (BEAKER) (test code = 3.4 mg/dL 2.3-4.7 604) Shaper Setter ID - PANTERA MCBC W/PLT COUNT & AUTO [id number] 05:01:30 Test Item Value Reference Range Interpretation [...] 0-0 (BEAKER) (test code = 413) POCT-GLUCOSE [id number] 21:11:09 Test Item Value Reference Range Interpretation Comments POC-GLUCOSE METER 148 mg/dL 70-110 H : TESTED A T [facility] 6720 (BEAKER) (test code = [facility], 1538) 32588: Shaper Setter/Techni stephanie ID = [id number] for Pauline Morel POCT-GLUCOSE [id number] 17:11:31 Test Item Value Reference Range Interpretation Comments POC-GLUCOSE METER 154 mg/dL 70-110 H : TESTED A T [facility] 6720 (BEAKER) (test code = [facility], 1538) 66211: Shaper Setter/Techni stephanie ID = [id number] for DEBRA REID URINALYSIS W/ REFLEX URINE [id number] 15:39:53 Test Item Value Reference Range Interpretation [...] = 1521) SOURCE(BEAKER) (test code = 2795) Shaper Setter ID - [auto]Shaper Setter ID - techPOCT-GLUCOSE [id number] 12:36:59 Test Item Value Reference Range Interpretation Comments POC-GLUCOSE METER 311 mg/dL 70-110 H : TESTED A T [facility] 6720 (BEAKER) (test code = [place], 1538) 75436: Shaper Setter/Techni stephanie ID = [id number] for DEBRA REID POCT-GLUCOSE [id number] 07:32:37 Test Item Value Reference Range Interpretation Comments POC-GLUCOSE METER 119 mg/dL 70-110 H : TESTED A T [facility] 6720 (BEAKER) (test code = [place], 1538) 02660: Shaper Setter/Techni stephanie ID = [id number] for DARVIN GUY (CELLAVISION MANUAL DIFF)2021-11-11 07:22:09 [...] CONCENTRATION Adequate (CELLAVISION)(BEAKER) (test code = 3438) Shaper Setter ID - jacob Martníez comments: Slide comments:CBC W/PLT COUNT & AUTO [id number] 07:22:08 Test Item Value Reference Range Interpretation [...] WBC 0-0 (BEAKER) (test code = 413) [id number] 06:17:03 Test Item Value Reference Range Interpretation Comments PHOSPHORUS (BEAKER) (test code = 4.0 mg/dL 2.3-4.7 604) Shaper Setter ID - EOHEPATIC FUNCTION [id number] 06:17:03 Test Item Value Reference Range Interpretation [...] (test code = 22 U/L 6-55 347) Shaper Setter ID - EOBASIC METABOLIC [id number] 06:17:02 Test Item Value Reference Range Interpretation [...] S NOT APPLICABLE FOR DIALYSIS PATIEN TS. Shaper Setter ID - [id number] 06:17:02 Test Item Value Reference Range Interpretation Comments MAGNESIUM (BEAKER) (test code = 2.2 mg/dL 1.6-2.6 627) Shaper Setter ID - EOPOCT-GLUCOSE [id number] 22:50:53 Test Item Value Reference Range Interpretation Comments POC-GLUCOSE METER 162 mg/dL 70-110 H : TESTED A T [facility] 6720 (BEAKER) (test code [facility], = 1538) 02151: Shaper Setter/Techni stephanie ID = [id number] for Neli Cagle POCT-GLUCOSE [id number] 16:17:15 Test Item Value Reference Range Interpretation Comments POC-GLUCOSE METER 119 mg/dL 70-110 H : TESTED A T [facility] 6720 (BEAKER) (test code = [facility], 1538) 13848: Shaper Setter/Techni stephanie ID = [id number] for Taisha Hutchison POCT-GLUCOSE [id number] 11:23:14 Test Item Value Reference Range Interpretation Comments POC-GLUCOSE METER 235 mg/dL 70-110 H : TESTED A T [facility] 6720 (BEAKER) (test code = [facility], 1538) 35765: Shaper Setter/Techni stephanie ID = [id number] for Taisha Hutchison CBC W/PLT COUNT & AUTO [id number] 07:57:39 Test Item Value Reference Range Interpretation [...] CONCENTRATION Adequate (CELLAVISION)(BEAKER) (test code = 3438) Shaper Setter ID - Akosua Grissom comments: Slide comments:POCT-GLUCOSE METER 2021-11-10 07:44:45 Test Item Value Reference Range Interpretation Comments POC-GLUCOSE METER 163 mg/dL 70-110 H : [facility] (BE[facility]ER[facility] (test code = [facility] [place], 1538) 148[address]: Shaper Setter/Techni stephanie ID = [id number] for RO NHAN ROBBINSO [id number] 06:07:18 Test Item Value Reference Range Interpretation Comments PHOSPHORUS (BEAKER) (test code = 4.4 mg/dL 2.3-4.7 604) Shaper Setter ID - KEVIN LHEPATIC FUNCTION [id number] 06:07:18 Test Item Value Reference Range Interpretation [...] (test code = 23 U/L 6-55 347) Shaper Setter ID - PIAYA LCOMPREHENSIVE METABOLIC [id number] 06:07:17 Test Item Value Reference Range Interpretation [...] S NOT APPLICABLE FOR DIALYSIS PATIEN TS. Shaper Setter ID - PIAYA [id number] 06:07:17 Test Item Value Reference Range Interpretation Comments MAGNESIUM (BEAKER) (test code = 2.2 mg/dL 1.6-2.6 627) Shaper Setter ID - KEVIN LB-TYPE NATRIURETIC FACTOR (BNP)2021-11-10 05:49:01 Test Item Value Reference Range Interpretation Comments B-TYPE NATRIURETIC PEPTIDE (REILLY) 278 pg/mL 0-100 H (test code = 700) Shaper Setter ID - KEVIN LCALCIUM, [id number] 05:42:24 Test Item Value Reference Range Interpretation Comments CALCIUM IONIZED (REILLY) (test 1.13 mmol/L 1.12-1.27 code = 698) PH, BLOOD (REILLY) (test code = 7.37 1810) POCT-GLUCOSE [id number] 20:59:17 Test Item Value Reference Range Interpretation Comments POC-GLUCOSE METER 191 mg/dL 70-110 H : TESTED A T [facility] 67[facility] (REILLY) (test code = [place], 1538) [address]: Shaper Setter/Techni stephanie ID = [id number] for Maryam Fernandez SARS-COV2/RT-PCR ([facility])2021-11-09 20:44:15 Test Item Value Reference Range Interpretation Comments SARS-COV2/RT-PCR (test code = Negative Negative [id number]) Negative result for this test determines that [...] Healthcare Providers:https://www.molecular.dowling/lorena/RT SARS-CoV-2 HCP Fact Sheet 51- 774963.pdfFact Sheet for Healthcare Patients:https://www.tocario.[employer]/lorena/RT SARS-CoV-2 Patient Fact Sheet EN [id number].pdfPOCT-GLUCOSE [id number] 17:26:19 Test Item Value Reference Range Interpretation Comments POC-GLUCOSE METER 273 mg/dL 70-110 H : TESTED A T [facility] 6720 (BEAKER) (test code = [facility], 1538) [address]: Shaper Setter/Techni setphanie ID = [id number] for EDISON RENDON POCT-GLUCOSE [id number] 12:15:01 Test Item Value Reference Range Interpretation Comments POC-GLUCOSE METER 241 mg/dL 70-110 H : TESTED A T [facility] 6720 (BEAKER) (test code = [facility], 1538) [address]: Shaper Setter/Techni stephanie ID = [id number] for EDISON RENDON (CELLAVISION MANUAL DIFF)2021-11-09 08:20:32 [...] CONCENTRATION Adequate (CELLAVISION)(BEAKER) (test code = 3438) Shaper Setter ID - jacob Martínez comments: Slide comments:CBC W/PLT COUNT & AUTO [id number] 08:20:31 Test Item Value Reference Range Interpretation [...] H (BEAKER) (test code = 413) POCT-GLUCOSE [id number] 07:41:35 Test Item Value Reference Range Interpretation Comments POC-GLUCOSE METER 198 mg/dL 70-110 H : TESTED A T [facility] 6720 (BEAKER) (test code = [place], 1538) [address]: Shaper Setter/Techni stephanie ID = [id number] for EDISON RENDON [id number] 06:59:46 Test Item Value Reference Range Interpretation Comments FERRITIN (BEAKER) (test code = 607.92 ng/mL 5.00-275.00 H 361) Shaper Setter ID - KEVIN [id number] 06:49:25 Test Item Value Reference Range Interpretation Comments PHOSPHORUS (BEAKER) (test code = 4.7 mg/dL 2.3-4.7 604) Shaper Setter ID - KEVIN LHEPATIC FUNCTION [id number] 06:49:25 Test Item Value Reference Range Interpretation [...] (test code = 24 U/L 6-55 347) Shaper Setter ID - KEVIN LBASIC METABOLIC [id number] 06:49:24 Test Item Value Reference Range Interpretation [...] S NOT APPLICABLE FOR DIALYSIS PATIEN TS. Shaper Setter ID - KEVIN [id number] 06:49:24 Test Item Value Reference Range Interpretation Comments MAGNESIUM (BEAKER) (test code = 2.4 mg/dL 1.6-2.6 627) Shaper Setter ID Doug MURRAY, TIBC, % SAT. (WITHOUT FERRITIN)2021-11-09 06:42:40 Test Item Value Reference Range Interpretation Comments IRON (BEAKER) (test code = 547) 48.0 ug/dL 40.0-160.0 TOTAL IRON BINDING CAPACITY 255 ug/dL 250-450 (BEAKER) (test code = 769) IRON % SATURATION (2) (BEAKER) 19 % 20-55 L (test code = 2590) Shaper Setter ID - KEVIN LARKINLCIUM, [id number] 05:50:16 Test Item Value Reference Range Interpretation Comments CALCIUM IONIZED (BEAKER) (test 1.15 mmol/L 1.12-1.27 code = 698) PH, BLOOD (BEAKER) (test code = 7.38 1810) POCT-GLUCOSE [id number] 21:02:18 Test Item Value Reference Range Interpretation Comments POC-GLUCOSE METER 269 mg/dL 70-110 H : TESTED A T [facility] 6720 (BEAKER) (test code = [facility], 1538) [address]: Shaper Setter/Techni stephanie ID = [id number] for Maryam Fernandez POCT-GLUCOSE [id number] 17:50:33 Test Item Value Reference Range Interpretation Comments POC-GLUCOSE METER 265 mg/dL 70-110 H : TESTED A T [facility] 6720 (BEAKER) (test code = [facility], 1538) [address]: Shaper Setter/Techni stephanie ID = [id number] for DEBRA REID PERIPHERAL BLOOD SMEAR - PATHOLOGIST [id number] 14:26:14 Test Item Value Reference Range Interpretation Comments PERIPHERAL SMR REVIEW No circulating blasts. (BEAKER) (test code = No significantly 2640) increased schistocytes. [id number] Randall Lui, (BEAKER) (test code = M.D.(electronic 2951) signature) (CELLAVISION MANUAL DIFF)2021-11-08 11:36:03 Test Item [...] CONCENTRATION Adequate (CELLAVISION)(BEAKER) (test code = 3438) Shaper Setter ID - Jose Hauser comments: Slide comments:CBC W/PLT COUNT & AUTO [id number] 11:35:51 Test Item Value Reference Range Interpretation [...] 0-0 (BEAKER) (test code = 413) POCT-GLUCOSE [id number] 08:51:47 Test Item Value Reference Range Interpretation Comments POC-GLUCOSE METER 196 mg/dL 70-110 H : [facility] ([facility]ER[facility] (test code = [place], 1538) [address]: Shaper Setter/Techni stephanie ID = [id number] for SAVAGE STRATTONBE, ARISTIDES HEPATIC FUNCTION [id number] 06:03:48 Test Item Value Reference Range Interpretation [...] (test code = 25 U/L 6-55 347) Shaper Setter ID - PIAYA OMPREHENSIVE METABOLIC [id number] 06:03:47 Test Item Value Reference Range Interpretation [...] S NOT APPLICABLE FOR DIALYSIS PATIEN TS. Shaper Setter ID - KEVIN [id number] 06:03:47 Test Item Value Reference Range Interpretation Comments MAGNESIUM (BEAKER) (test code = 2.4 mg/dL 1.6-2.6 627) Shaper Setter ID - KEVIN [id number] 06:03:47 Test Item Value Reference Range Interpretation Comments PHOSPHORUS (BEAKER) (test code = 4.7 mg/dL 2.3-4.7 604) Shaper Setter ID - PIALESHA LCALCIUM, [id number] 05:04:34 Test Item Value Reference Range Interpretation Comments CALCIUM IONIZED (BEAKER) (test 1.12 mmol/L 1.12-1.27 code = 698) PH, BLOOD (BEAKER) (test code = 7.37 1810) [id number] 04:56:09 Test Item Value Reference Range Interpretation Comments FIBRINOGEN LEVEL (BEAKER) (test 213 mg/dl 225-434 L code = 658) RAD, CHEST, 1 VIEW, NON [id number] 02:19:00Reason for exam:->evaluate for pulmonary edemaShould this be performed at the bedside?->Yes [facility] : 1960 Sex: MFINAL REPORT EXAM/TECHNIQUE: Single view frontal radiograph of the chest. INDICATION: Pulmonary edema. COMPARISON: 11/05/2021 FINDINGS: Devices/Objects: None. Lungs: No new focal consolidation or pleural fluid accumulation. Heart/Mediastinum: Similar cardiomegaly with decreased interstitial thickening. Osseous: No acute osseous process. No suspicious osseous lesion. Upper abdomen: Unremarkable. Impression: Slightly decreased pulmonary edema. Signed: Dorian Noe MDReport Verified Date/Time: 11/08/2021 02:19:47 Electronically signed by: DORIAN NOE MD on 10/2021 02:19 AMPOCT-GLUCOSE [id number] 21:36:38 Test Item Value Reference Range Interpretation Comments POC-GLUCOSE METER 254 mg/dL 70-110 H : Notified RN/MD: (REILLY) (test code = TESTED AT [facility] 6720 1538) [facility], [address]: Shaper Setter/Techni stephanie ID = [id number] for Moe Ayala CT, CHEST, WITHOUT [id number] 21:21:00Unlisted Reason for Exam - Click Yes and Enter Reason Below->YesUnlisted Reason for Exam->concern for bleedingL[facility] VICTOR : 1960 Sex: MFINAL [...] on this noncontrast exam. Signed: Dorian Noe [facility] Verified Date/Time: 11/07/2021 21:21:12 [place], [id number] 21:21:00Unlisted Reason for Exam - Click Yes and Enter Reason Below->YesUnlisted Reason for Exam- >r/o bleedIs this for enterography?->NoWill this procedure require oral contrast?->No[facility] VICTOR : 1960 Sex: MFINAL [...] on this noncontrast exam. Signed: Dorian Noe [facility] Verified Date/Time: 11/07/2021 21:21:12 [id number] 20:01:15 Test Item Value Reference Range Interpretation [...] 0-0 (BEAKER) (test code = 413) POCT-GLUCOSE [id number] 16:21:02 Test Item Value Reference Range Interpretation Comments POC-GLUCOSE METER 206 mg/dL 70-110 H : TESTED A T [facility] 6720 ([facility]) (test code = [facility], 153) [address]: Shaper Setter/Techni stephanie ID = [id number] for AG UILAR, MALU POCT-GLUCOSE [id number] 11:34:10 Test Item Value Reference Range Interpretation Comments POC-GLUCOSE METER 296 mg/dL 70-110 H : TESTED A T [facility] 6720 ([facility]) (test code = [facility], 153) [address]: Shaper Setter/Techni stephanie ID = [id number] for AG UILAR, MALU [id number] 10:28:26 Test Item Value Reference Range Interpretation Comments PARTIAL THROMBOPLASTIN TIME 80.4 seconds 22.5-36.0 H (BEAKER) (test code = 760) [id number] 10:27:27 Test Item Value Reference Range Interpretation Comments FIBRINOGEN LEVEL (BEAKER) (test 199 mg/dl 225-434 L code = 658) PROTHROMBIN TIME/[id number] 10:26:49 Test Item Value Reference Range Interpretation Comments PROTIME (BEAKER) 14.1 seconds 11.9-14.2 (test code = 759) INR (BEAKER) (test 1.11 See_Comment [Automat ed message] code = 370) The system Intelli[employer] generated this result transmitted ref erence range: [...] PERCENT (BEAKER) (test code = 2801) POCT-GLUCOSE [id number] 07:43:40 Test Item Value Reference Range Interpretation Comments POC-GLUCOSE METER 181 mg/dL 70-110 H : TESTED A T [facility] (BEAKER) (test code = [facility], 1538) [address]: Shaper Setter/Techni stephanie ID = [id number] for AG MALU ESCOBAR HEPATIC FUNCTION [id number] 05:32:54 Test Item Value Reference Range Interpretation [...] (test code = 23 U/L 6-55 347) Shaper Setter ID - DBBASIC METABOLIC [id number] 05:32:53 Test Item Value Reference Range Interpretation [...] S NOT APPLICABLE FOR DIALYSIS PATIEN TS. Shaper Setter ID - [id number] 05:32:53 Test Item Value Reference Range Interpretation Comments MAGNESIUM (BEAKER) (test code = 2.2 mg/dL 1.6-2.6 627) Shaper Setter ID - [id number] 05:27:13 Test Item Value Reference Range Interpretation Comments PARTIAL THROMBOPLASTIN TIME 87.5 seconds 22.5-36.0 H (BEAKER) (test code = 760) [id number] 05:26:09 Test Item Value Reference Range Interpretation [...] WBC 0-0 (BEAKER) (test code = 413) [id number] 22:53:08 Test Item Value Reference Range Interpretation Comments FIBRINOGEN LEVEL (BEAKER) (test 192 mg/dl 225-434 L code = 658) [id number] 22:49:10 Test Item Value Reference Range Interpretation Comments PARTIAL THROMBOPLASTIN TIME 72.1 seconds 22.5-36.0 H (BEAKER) (test code = 760) POCT-GLUCOSE [id number] 21:45:24 Test Item Value Reference Range Interpretation Comments POC-GLUCOSE METER 213 mg/dL 70-110 H : Notified RN/MD: ([facility]) (test code = TESTED AT [facility] 2686 8627) [facility], [address]: Shaper Setter/Techni stephanie ID = [id number] for CALVIN MUNIZ MR, CARDIAC, [id number] 20:35:00Unlisted Reason for Exam - Click Yes and Enter Reason Below->No [facility] VALENTEJOSE EDUARDO JUAN : 1960 Sex: MFINAL REPORT Cardiovascular MRI [...] mitral regurgitant fraction: 38 %. Signed: Caesar Sidhu MDReport Verified Date/Time: 11/06/2021 20:35:08 BASI METABOLIC [id number] 17:02:42 Test Item Value Reference Range Interpretation [...] S NOT APPLICABLE FOR DIALYSIS PATIEN TS. Shaper Setter ID - [id number] 16:47:36 Test Item Value Reference Range Interpretation Comments PARTIAL THROMBOPLASTIN TIME 76.1 seconds 22.5-36.0 H (BEAKER) (test code = 760) POCT-GLUCOSE [id number] 16:47:20 Test Item Value Reference Range Interpretation Comments POC-GLUCOSE METER 198 mg/dL 70-110 H : TESTED A T [facility] 6720 (BEAKER) (test code = [facility], 1538) [address]: Shaper Setter/Techni stephanie ID = [id number] for GITA PERRY [id number] 12:50:28 Test Item Value Reference Range Interpretation Comments FIBRINOGEN LEVEL (BEAKER) (test 158 mg/dl 225-434 L code = 658) POCT-GLUCOSE [id number] 12:10:20 Test Item Value Reference Range Interpretation Comments POC-GLUCOSE METER 203 mg/dL 70-110 H : TESTED A T [facility] 6720 (BEAKER) (test code = [facility], 1538) [address]: Shaper Setter/Techni stephanie ID = [id number] for GITA PERRY CALCIUM, [id number] 12:05:36 Test Item Value Reference Range Interpretation Comments CALCIUM IONIZED (BEAKER) (test 1.11 mmol/L 1.12-1.27 L code = 698) PH, BLOOD (BEAKER) (test code = 7.40 1810) HEMOGLOBIN AND [id number] 12:04:39 Test Item Value Reference Range Interpretation Comments HEMOGLOBIN (BEAKER) (test code = 7.8 GM/DL 13.7-17.5 L 410) HEMATOCRIT (BEAKER) (test code = 24.5 % 40.1-51.0 L 411) Shaper Setter ID - [id number] 08:46:33 Test Item Value Reference Range Interpretation Comments PARTIAL THROMBOPLASTIN TIME 39.7 seconds 22.5-36.0 H (BEAKER) (test code = 760) POCT-GLUCOSE [id number] 08:34:22 Test Item Value Reference Range Interpretation Comments POC-GLUCOSE METER 198 mg/dL 70-110 H : TESTED A T [facility] 6720 (BEAKER) (test code = [facility], 1538) [address]: Shaper Setter/Techni stephanie ID = [id number] for Urvashi Smith [id number] 06:07:20 Test Item Value Reference Range Interpretation Comments PARTIAL THROMBOPLASTIN TIME 112.2 seconds 22.5-36.0 H (BEAKER) (test code = 760) BASIC METABOLIC [id number] 05:40:54 Test Item Value Reference Range Interpretation [...] S NOT APPLICABLE FOR DIALYSIS PATIEN TS. Shaper Setter ID - MIRI WHEPATIC FUNCTION [id number] 05:40:54 Test Item Value Reference Range Interpretation [...] Specimen slightly (test code = 347) hemolyzed Shaper Setter ID Doug CHERY [id number] 05:40:53 Test Item Value Reference Range Interpretation Comments MAGNESIUM (BEAKER) 2.1 mg/dL 1.6-2.6 Specimen slightly (test code = 627) hemolyzed Shaper Setter ID Doug CHERY [id number] 05:28:09 Test Item Value Reference Range Interpretation [...] WBC 0-0 (BEAKER) (test code = 413) [id number] 22:32:50 Test Item Value Reference Range Interpretation Comments FIBRINOGEN LEVEL (BEAKER) (test 137 mg/dl 225-434 L code = 658) [id number] 22:28:44 Test Item Value Reference Range Interpretation Comments PARTIAL THROMBOPLASTIN TIME 65.9 seconds 22.5-36.0 H (BEAKER) (test code = 760) POCT-GLUCOSE [id number] 21:26:30 Test Item Value Reference Range Interpretation Comments POC-GLUCOSE METER 276 mg/dL 70-110 H : Notified RN/MD: (BEAKER) (test code = TESTED AT [facility] 0811 4943) [place] [facility], [address]: Shaper Setter/Techni stephanie ID = [id number] for Moe Ayala [id number] 18:53:21 Test Item Value Reference Range Interpretation Comments PARTIAL THROMBOPLASTIN TIME > seconds 22.5-36.0 HH (BEAKER) (test code = 760) [id number] 18:51:49 Test Item Value Reference Range Interpretation [...] WBC 0-0 (BEAKER) (test code = 413) [id number] 16:06:12 Test Item Value Reference Range Interpretation Comments ACTIVATED CLOTTING TIME 249 sec : 74 -137 seconds, (BEAKER) (test code = [place] ne: TESTED AT 441) [facility] [place], [address]: Shaper Setter/Techni stephanie ID = [id number] for CA SHAHIDA CADENA [id number] 13:29:36 Test Item Value Reference Range Interpretation Comments FIBRINOGEN LEVEL (BEAKER) (test code 96 mg/dl 225-434 LL = 658) BASIC METABOLIC [id number] 13:19:53 Test Item Value Reference Range Interpretation [...] S NOT APPLICABLE FOR DIALYSIS PATIEN TS. Shaper Setter ID - DBPOCT-GLUCOSE [id number] 11:44:52 Test Item Value Reference Range Interpretation Comments POC-GLUCOSE METER 194 mg/dL 70-110 H : TESTED A T [facility] 6720 (BEAKER) (test code = [facility] [place], 1538) [address]: Shaper Setter/Techni setphanie ID = [id number] for Gi Urvashi rodrigues [id number] 10:49:58 Test Item Value Reference Range Interpretation Comments FIBRINOGEN LEVEL (BEAKER) (test 101 mg/dl 225-434 L code = 658) [id number] 10:44:59 Test Item Value Reference Range Interpretation Comments PARTIAL THROMBOPLASTIN TIME 51.3 seconds 22.5-36.0 H (SAVAGEAKER) (test code = 760) RAD, CHEST, 1 VIEW, NON [id number] 09:47:00Reason for exam:->[facility] : 1960 Sex: MFINAL REPORT Chest, one view History: Pulmonary edema Comparison: 11/04/2021 Findings:Increasing bilateral interstitial opacities. Mild cardiomegaly. Previous CABG surgery.No pleural effusion or pneumothorax. Impression:Increasing bilateral interstitial opacities, likely interstitial edema. Signed: Oc Chicas MDRepst. [facility]is [facility] Verified Date/Time: 11/05/2021 09:47:21 POCT-GLUCOSE [id number] 07:41:53 Test Item Value Reference Range Interpretation Comments POC-GLUCOSE METER 156 mg/dL 70-110 H : TESTED A T [facility] 6720 (BEAKER) (test code = [place], 1538) [address]: Shaper Setter/Techni stephanie ID = [id number] for Urvashi Smith [id number] 07:32:45 Test Item Value Reference Range Interpretation Comments FIBRINOGEN LEVEL (BEAKER) (test code 85 mg/dl 225-434 LL = 658) [id number] 07:24:20 Test Item Value Reference Range Interpretation Comments PARTIAL THROMBOPLASTIN TIME 47.8 seconds 22.5-36.0 H (BEAKER) (test code = 760) BASIC METABOLIC [id number] 05:33:20 Test Item Value Reference Range Interpretation [...] S NOT APPLICABLE FOR DIALYSIS PATIEN TS. Shaper Setter ID - [id number] 05:26:33 Test Item Value Reference Range Interpretation Comments MAGNESIUM (BEAKER) 2.2 mg/dL 1.6-2.6 Specimen slightly (test code = 627) hemolyzed Shaper Setter ID - DBOperator ID - DBHEPATIC FUNCTION [id number] 05:26:33 Test Item Value Reference Range Interpretation [...] Specimen slightly (test code = 347) hemolyzed Shaper Setter ID - DBCBC (HEMOGRAM ONLY)2021-11-05 04:51:04 Test [...] WBC 0-0 (BEAKER) (test code = 413) [id number] 01:44:17 Test Item Value Reference Range Interpretation Comments FIBRINOGEN LEVEL (BEAKER) (test code 92 mg/dl 225-434 LL = 658) [id number] 01:25:41 Test Item Value Reference Range Interpretation Comments PARTIAL THROMBOPLASTIN TIME 50.5 seconds 22.5-36.0 H (BEAKER) (test code = 760) POCT-GLUCOSE [id number] 23:08:16 Test Item Value Reference Range Interpretation Comments POC-GLUCOSE METER 191 mg/dL 70-110 H : Notified RN/MD: ([facility]) (test code = TESTED AT [facility] 6720 1538) [place], [address]: Shaper Setter/Techni stephanie ID = [id number] for THAO HERNANDEZ BASIC METABOLIC [id number] 18:50:34 Test Item Value Reference Range Interpretation [...] S NOT APPLICABLE FOR DIALYSIS PATIEN TS. Shaper Setter ID - [id number] 18:48:56 Test Item Value Reference Range Interpretation Comments FIBRINOGEN LEVEL (BEAKER) (test 123 mg/dl 225-434 L code = 658) [id number] 18:38:33 Test Item Value Reference Range Interpretation Comments PARTIAL THROMBOPLASTIN TIME 77.2 seconds 22.5-36.0 H (BEAKER) (test code = 760) POCT-GLUCOSE [id number] 17:19:18 Test Item Value Reference Range Interpretation Comments POC-GLUCOSE METER 222 mg/dL 70-110 H : TESTED A T [facility] 6720 ([facility]) (test code = [facility], 1538) [address]: Shaper Setter/Techni stephanie ID = [id number] for BARBARA EMANUEL B-TYPE NATRIURETIC FACTOR (BNP)2021-11-04 13:58:30 Test Item Value Reference Range Interpretation Comments B-TYPE NATRIURETIC PEPTIDE (BEAKER) 815 pg/mL 0-100 H (test code = 700) Shaper Setter ID - KEVIN LRAD, CHEST, 1 VIEW, NON [id number] 13:52:00Reason for exam:->SOBShould this be performed at the bedside?->Yescath lab holding [facility] : 1960 Sex: MFINAL REPORT CLINICAL HISTORY: SOB TECHNIQUE: 1 view of the chest. COMPARISON: 11/01/2021 IMPRESSION: There are increased interstitial opacities bilaterally suggesting pulmonary edema or a nonspecific pneumonitis. There are no significant appearing effusions. The cardiomediastinal silhouette is magnified by technique with sternotomy wires. Signed: Yvette Bingham rifshania Date/Time: 11/04/2021 13:52:14 Reading Location: [facility] Radiology Reading Room [id number] 13:49:29 Test Item Value Reference Range Interpretation Comments PHOSPHORUS (BEAKER) (test code = 4.1 mg/dL 2.3-4.7 604) Shaper Setter ID - KEVIN LBASIC METABOLIC [id number] 13:49:28 Test Item Value Reference Range Interpretation [...] S NOT APPLICABLE FOR DIALYSIS PATIEN TS. Shaper Setter ID - PONCHOALESHA [id number] 13:49:28 Test Item Value Reference Range Interpretation Comments MAGNESIUM (BEAKER) (test code = 2.5 mg/dL 1.6-2.6 627) Shaper Setter ID - PONCHOALESHA LLACTIC ACID, [id number] 13:45:02 Test Item Value Reference Range Interpretation Comments LACTATE BLOOD VENOUS (2) (BEAKER) 1.35 mmol/L 0.50-2.20 (test code = 2872) Shaper Setter ID - PONCHOALESHA [id number] 13:43:27 Test Item Value Reference Range Interpretation Comments FIBRINOGEN LEVEL (BEAKER) (test 512 mg/dl 225-434 H code = 658) CBC W/PLT COUNT & AUTO [id number] 13:32:32 Test Item Value Reference Range Interpretation [...] PERCENT (BEAKER) (test code = 2801) POCT-GLUCOSE [id number] 12:39:59 Test Item Value Reference Range Interpretation Comments POC-GLUCOSE METER 162 mg/dL 70-110 H : TESTED A T [facility] 6720 (BEAKER) (test code = [place], 1538) [address]: Shaper Setter/Techni stephanie ID = [id number] for Miya Novak COMPLEMENT COMPONENT [id number] 02:37:30 Test Item Value Reference Range Interpretation Comments C3 COMPLEMENT (BEAKER) (test code = 161 mg/dL 82-193 393) Shaper Setter ID Doug BROWN LCOMPLEMENT COMPONENT [id number] 02:37:29 Test Item Value Reference Range Interpretation Comments C4 COMPLEMENT (BEAKER) (test code = 42 mg/dL 15-57 394) Shaper Setter ID oDug BROWN LHEPATIC FUNCTION [id number] 02:19:10 Test Item Value Reference Range Interpretation [...] Specimen slightly (test code = 347) hemolyzed Shaper Setter ID Doug CHERY [id number] 02:19:09 Test Item Value Reference Range Interpretation Comments PHOSPHORUS (BEAKER) 4.2 mg/dL 2.3-4.7 Specimen slightly (test code = 604) hemolyzed Shaper Setter ID Doug CHERY WCOMPREHENSIVE METABOLIC [id number] 02:19:09 Test Item Value Reference Range Interpretation [...] S NOT APPLICABLE FOR DIALYSIS PATIEN TS. Shaper Setter ID - MIRI [id number] 02:19:08 Test Item Value Reference Range Interpretation Comments MAGNESIUM (BEAKER) 2.4 mg/dL 1.6-2.6 Specimen slightly (test code = 627) hemolyzed Shaper Setter ID - MIRI WOperator ID Doug CHERY WB-TYPE NATRIURETIC FACTOR (BNP) 2021-11-04 02:15:07 Test Item Value Reference Range Interpretation Comments B-TYPE NATRIURETIC PEPTIDE (BEAKER) 716 pg/mL 0-100 H (test code = 700) Shaper Setter ID - MIRI [id number] 02:14:06 Test Item Value Reference Range Interpretation Comments PARTIAL THROMBOPLASTIN TIME 93.0 seconds 22.5-36.0 H (BEAKER) (test code = 760) CBC W/PLT COUNT & AUTO [id number] 01:48:04 Test Item Value Reference Range Interpretation [...] PERCENT (BEAKER) (test code = 2801) CALCIUM, [id number] 01:47:44 Test Item Value Reference Range Interpretation Comments CALCIUM IONIZED (BEAKER) (test 1.14 mmol/L 1.12-1.27 code = 698) PH, BLOOD (BEAKER) (test code = 7.38 1810) SARS-COV2/RT-PCR ([facility])2021-11-03 22:37:22 Test Item Value Reference Range Interpretation Comments SARS-COV2/RT-PCR (test Negative Not Detected, Negative, code = 7401782) See external report for linked test SARS-COV-[address] [facility] (test code = 2218513) Negative result for this test determines that [...] 564(g) of the Act.Fact Sheet for Healthcare Providers:[email or web address]/[email or web address]/product/documents/Fact_Shee h_AK_Rxjauphka_Jbmn_ZMEE-JrZ-3.pdfFact Sheet for Healthcare Patients:[email or web address] Laboratory:[facility], [place] [id number] METER 2021-11-03 22:19:00 Test Item Value Reference Range Interpretation Comments POC-GLUCOSE METER 224 mg/dL 70-110 H : TESTED A T [facility] 6720 (BEAKER) (test code = [facility], 153) 75335: Shaper Setter/Techni stephanie ID = [id number] for [place] POCT-GLUCOSE [id number] 17:40:44 Test Item Value Reference Range Interpretation Comments POC-GLUCOSE METER 197 mg/dL 70-110 H : TESTED A T [facility] 6720 (BEAKER) (test code = [facility], 153) 34805: Shaper Setter/Techni stephanie ID = [id number] for OR PASQUALE ISAAC [id number] 16:48:48 Test Item Value Reference Range Interpretation Comments PARTIAL THROMBOPLASTIN TIME 49.1 seconds 22.5-36.0 H (BEAKER) (test code = 760) POCT-GLUCOSE [id number] 12:34:02 Test Item Value Reference Range Interpretation Comments POC-GLUCOSE METER 166 mg/dL 70-110 H : TESTED A T [facility] 6720 (BEAKER) (test code = [facility], 153) 62197: Shaper Setter/Techni stephanie ID = [id number] for OR PASQUALE ISAAC [id number] 09:53:04 Test Item Value Reference Range Interpretation Comments PARTIAL THROMBOPLASTIN TIME 60.2 seconds 22.5-36.0 H (BEAKER) (test code = 760) POCT-GLUCOSE [id number] 08:10:48 Test Item Value Reference Range Interpretation Comments POC-GLUCOSE METER 110 mg/dL 70-110 : TESTED A T [facility] 6720 (BEAKER) (test code = [facility], 153) 84600: Shaper Setter/Techni stephanie ID = [id number] for OR PASQUALE ISAAC COMPREHENSIVE METABOLIC [id number] 07:02:32 Test Item Value Reference Range Interpretation [...] S NOT APPLICABLE FOR DIALYSIS PATIEN TS. Shaper Setter ID - PIAYA LCREATINE KINASE (CK)2021-11-03 06:51:39 Test Item Value Reference Range Interpretation Comments CREATINE KINASE TOTAL (BEAKER) (test 64 U/L 29-200 code = 380) Shaper Setter ID - PIAYA LHEPATIC FUNCTION [id number] 06:51:38 Test Item Value Reference Range Interpretation [...] (test code = 36 U/L 6-55 347) Shaper Setter ID - KEVIN [id number] 06:51:37 Test Item Value Reference Range Interpretation Comments MAGNESIUM (BEAKER) (test code = 2.4 mg/dL 1.6-2.6 627) Shaper Setter ID - KEVIN [id number] 06:51:37 Test Item Value Reference Range Interpretation Comments PHOSPHORUS (BEAKER) (test code = 4.3 mg/dL 2.3-4.7 604) Shaper Setter ID - KEVIN LCALCIUM, [id number] 06:42:48 Test Item Value Reference Range Interpretation Comments CALCIUM IONIZED (BEAKER) (test 1.15 mmol/L 1.12-1.27 code = 698) PH, BLOOD (BEAKER) (test code = 7.37 1810) TSH/FREE T4 IF [id number] 06:22:05 Test Item Value Reference Range Interpretation Comments THYROID STIMULATING HORMONE 1.658 uIU/mL 0.350-4.940 (BEAKER) (test code = 772) Shaper Setter ID - KEVIN LCBC W/PLT COUNT & AUTO [id number] 06:13:56 Test Item Value Reference Range Interpretation [...] 0-1 H PERCENT (BEAKER) (test code = 2803) [id number] 02:50:03 Test Item Value Reference Range Interpretation Comments PARTIAL THROMBOPLASTIN TIME 71.2 seconds 22.5-36.0 H (BEAKER) (test code = 760) [id number] 00:41:37 Test Item Value Reference Range Interpretation Comments PARTIAL THROMBOPLASTIN TIME 117.4 seconds 22.5-36.0 H (BEAKER) (test code = 760) POCT-GLUCOSE [id number] 22:05:35 Test Item Value Reference Range Interpretation Comments POC-GLUCOSE METER 172 mg/dL 70-110 H : TESTED A T [facility] 6720 (BEAKER) (test code = [place], 1538) 13269: Shaper Setter/Techni stephanie ID = [id number] for Do , Maryam EOSINOPHIL SMEAR, [id number] 21:14:52 Test Item Value Reference Range Interpretation Comments EOSINOPHIL SMEAR, URINE (BEAKER) No EOS seen No EOS seen (test code = 1851) PROTEIN, RANDOM [id number] 20:22:45 Test Item Value Reference Range Interpretation Comments PROTEIN, URINE (BEAKER) (test code = < mg/dL 0-14 1569) Shaper Setter ID - BSSODIUM, RANDOM [id number] 20:22:25 Test Item Value Reference Range Interpretation Comments SODIUM URINE (BEAKER) (test code = 36 meq/L 243) Reference Range: No NormalsOperator ID - BSCREATININE, RANDOM [id number] 20:22:24 Test Item Value Reference Range Interpretation Comments CREATININE URINE (BEAKER) (test 70.6 mg/dL code = 375) Reference Range: No NormalsOperator ID - BSURINALYSIS W/ [id number] 20:14:57 Test Item Value Reference Range Interpretation [...] = 1521) SOURCE(BEAKER) (test code = 2795) Shaper Setter ID - [auto]Shaper Setter ID - [id number] 17:57:04 Test Item Value Reference Range Interpretation Comments PARTIAL THROMBOPLASTIN TIME 77.2 seconds 22.5-36.0 H (BEAKER) (test code = 760) POCT-GLUCOSE [id number] 17:09:08 Test Item Value Reference Range Interpretation Comments POC-GLUCOSE METER 265 mg/dL 70-110 H : TESTED A T [facility] 6720 (BEAKER) (test code = [facility], 1538) 90869: Shaper Setter/Techni stephanie ID = [id number] for OR MARLIN PASQUALE [id number] 16:31:40 Test Item Value Reference Range Interpretation Comments PARTIAL THROMBOPLASTIN TIME 113.2 seconds 22.5-36.0 H (BEAKER) (test code = 760) [id number] 14:30:56 Test Item Value Reference Range Interpretation Comments PARTIAL THROMBOPLASTIN TIME > seconds 22.5-36.0 HH (BEAKER) (test code = 760) [id number] 12:55:43 Test Item Value Reference Range Interpretation Comments PARTIAL THROMBOPLASTIN TIME 197.1 seconds 22.5-36.0 HH (BEAKER) (test code = 760) POCT-GLUCOSE [id number] 11:28:04 Test Item Value Reference Range Interpretation Comments POC-GLUCOSE METER 252 mg/dL 70-110 H : TESTED A T [facility] 6720 (BEAKER) (test code = [facility], 1538) 34048: Shaper Setter/Techni stephanie ID = [id number] for OR PHEY, PASQUALE POCT-GLUCOSE [id number] 08:08:01 Test Item Value Reference Range Interpretation Comments POC-GLUCOSE METER 227 mg/dL 70-110 H : TESTED A T [facility] 6720 (BEAKER) (test code = [facility], 1538) 69213: Shaper Setter/Techni stephanie ID = [id number] for OR PASQUALE ISAAC BASIC METABOLIC [id number] 02:27:25 Test Item Value Reference Range Interpretation [...] S NOT APPLICABLE FOR DIALYSIS PATIEN TS. Shaper Setter ID - MIRI [id number] 02:24:34 Test Item Value Reference Range Interpretation Comments MAGNESIUM (BEAKER) (test code = 2.5 mg/dL 1.6-2.6 627) Shaper Setter ID - MIRI WHEPATIC FUNCTION [id number] 02:24:34 Test Item Value Reference Range Interpretation [...] (test code = 49 U/L 6-55 347) Shaper Setter ID - MIRI [id number] 02:19:29 Test Item Value Reference Range Interpretation [...] 0-0 (BEAKER) (test code = 413) POCT-GLUCOSE [id number] 21:27:07 Test Item Value Reference Range Interpretation Comments POC-GLUCOSE METER 238 mg/dL 70-110 H : TESTED A T [facility] 6720 (BEAKER) (test code = [facility] [place], 1538) 41755: Shaper Setter/Techni stephanie ID = [id number] for KARY VALLE SE POCT-GLUCOSE [id number] 18:44:48 Test Item Value Reference Range Interpretation Comments POC-GLUCOSE METER 319 mg/dL 70-110 H : TEST[facility] A T [facility] 6720 [facility] (test code = [facility], 1538) 77006: Shaper Setter/Techni stephanie ID = [id number] for [place], Charisma RAD, CHEST, 2 [id number] 15:35:00Reason for exam:->verify sternotomy wires present for MRI [facility] : 1960 Sex: MFINAL REPORT CLINICAL HISTORY: verify sternotomy wires present for MRI TECHNIQUE: 2 views of the chest COMPARISON: 10/30/2021 IMPRESSION: There are no focal infiltrates or effusions. The cardiomediastinal silhouette is unchanged poststernotomy. Signed: Yvette Bingham MDReportVerified Date/Time: 11/01/2021 15:35:11 Reading Location: [facility] Radiology Reading Room POCT-GLUCOSE METER 2021-11-01 13:04:17 Test Item Value Reference Range Interpretation Comments POC-GLUCOSE METER 292 mg/dL 70-110 H : [facility] (test code = [facility], 1538) 06276: Shaper Setter/Techni stephanie ID = [id number] for [place] e[place], Charisma POCT-GLUCOSE [id number] 08:18:27 Test Item Value Reference Range Interpretation Comments POC-GLUCOSE METER 198 mg/dL 70-110 H : [facility] (test code = [facility], 1538) 88825: Shaper Setter/Techni stephanie ID = [id number] for [place] e[place], Charisma BASIC METABOLIC [id number] 05:31:31 Test Item Value Reference Range Interpretation [...] S NOT APPLICABLE FOR DIALYSIS PATIEN TS. Shaper Setter ID - PANTERA MHEPATIC FUNCTION [id number] 05:30:02 Test Item Value Reference Range Interpretation [...] (test code = 50 U/L 6-55 347) Shaper Setter ID - PANTERA [id number] 05:30:01 Test Item Value Reference Range Interpretation Comments MAGNESIUM (BEAKER) (test code = 2.4 mg/dL 1.6-2.6 627) Shaper Setter ID - PANTERA MB-TYPE NATRIURETIC FACTOR (BNP)2021-11-01 05:23:48 Test Item Value Reference Range Interpretation Comments B-TYPE NATRIURETIC PEPTIDE (BEAKER) 278 pg/mL 0-100 H (test code = 700) Shaper Setter ID - PANTERA CORTESBC (HEMOGRAM ONLY)2021-11-01 04:52:51 Test Item Value Reference [...] 0-0 (BEAKER) (test code = 413) POCT-GLUCOSE [id number] 21:15:33 Test Item Value Reference Range Interpretation Comments POC-GLUCOSE METER 277 mg/dL 70-110 H : TESTED A T [facility] 6720 (BEAKER) (test code = [facility], 1538) 74259: Shaper Setter/Techni stephanie ID = [id number] for Renee Clement POCT-GLUCOSE [id number] 18:04:18 Test Item Value Reference Range Interpretation Comments POC-GLUCOSE METER 274 mg/dL 70-110 H : TESTED A T [facility] 6720 (BEAKER) (test code = [facility], 1538) 03932: Shaper Setter/Techni stephanie ID = [id number] for Charisma Costa POCT-GLUCOSE [id number] 12:23:30 Test Item Value Reference Range Interpretation Comments POC-GLUCOSE METER 260 mg/dL 70-110 H : TESTED A T [facility] 6720 (BEAKER) (test code = [facility], 1538) 68721: Shaper Setter/Techni stephanie ID = [id number] for Chelsie zazueta Charisma POCT-GLUCOSE [id number] 08:12:43 Test Item Value Reference Range Interpretation Comments POC-GLUCOSE METER 227 mg/dL 70-110 H : TESTED A T [facility] 6720 (BEAKER) (test code = [facility], 1538) 42253: Shaper Setter/Techni stephanie ID = [id number] for Charisma Costa [id number] 06:02:20 Test Item Value Reference Range Interpretation Comments MAGNESIUM (BEAKER) (test code = 2.3 mg/dL 1.6-2.6 627) Shaper Setter ID - MIRI WHEPATIC FUNCTION [id number] 06:02:20 Test Item Value Reference Range Interpretation [...] code = 68 U/L 6-55 H 347) Shaper Setter ID - MIRI WBASIC METABOLIC [id number] 06:02:19 Test Item Value Reference Range Interpretation [...] S NOT APPLICABLE FOR DIALYSIS PATIEN TS. Shaper Setter ID - MIRI WCBC (HEMOGRAM ONLY)2021-10-31 05:00:27 Test Item Value [...] 0-0 (BEAKER) (test code = 413) POCT-GLUCOSE [id number] 21:38:54 Test Item Value Reference Range Interpretation Comments POC-GLUCOSE METER 263 mg/dL 70-110 H : TESTED A T [facility] 6720 (BEAKER) (test code [facility], = 1538) 38880: Shaper Setter/Techni stephanie ID = [id number] for SALVADOR IN (V), SHELBIE POCT-GLUCOSE [id number] 17:38:42 Test Item Value Reference Range Interpretation Comments POC-GLUCOSE METER 237 mg/dL 70-110 H : TESTED A T [facility] 6720 (BEAKER) (test code = [facility], 1538) 69925: Shaper Setter/Techni stephanie ID = [id number] for OR PHEY, PASQUALE POCT-GLUCOSE [id number] 12:14:16 Test Item Value Reference Range Interpretation Comments POC-GLUCOSE METER 309 mg/dL 70-110 H : [facility] T [facility] 6720 [facility] (test code = [facility], 1538) 93636: Shaper Setter/Techni stephanie ID = [id number] for OR PHEY, PASQUALE POCT-GLUCOSE [id number] 07:36:38 Test Item Value Reference Range Interpretation Comments POC-GLUCOSE METER 248 mg/dL 70-110 H : TESTED A T [facility] 6720 (BEAKER) (test code = [facility], 1538) 41532: Shaper Setter/Techni stephanie ID = [id number] for OR PHEY, PASQUALE RAD, CHEST, 1 VIEW, NON [id number] 06:53:00Reason for exam:->Pulmonary edemaShould this be performed at the bedside?->Yes [facility] : 1960 Sex: MFINAL REPORT RAD, CHEST, 1 VIEW, NON DEPT INDICATION: Pulmonary edema COMPARISON: Prior day's exam FINDINGS: Portable frontal view of the chest. IMPRESSION: Support Lines: Sternotomy wires Lungs and pleura: Lungs are predominantly clear. Mild basilar atelectasis. No significant pneumothorax. Heart and mediastinum: Stable contours. Additional findings: None. Signed: Carol Shirleyeport Verified Date/Time: 10/30/2021 06:53:05 BASIC METABOLIC [id number] 05:56:24 Test Item Value Reference Range Interpretation [...] S NOT APPLICABLE FOR DIALYSIS PATIEN TS. Shaper Setter ID - PIAYA [id number] 05:56:24 Test Item Value Reference Range Interpretation Comments MAGNESIUM (BEAKER) (test code = 2.2 mg/dL 1.6-2.6 627) Shaper Setter ID - PIAYA LHEPATIC FUNCTION [id number] 05:56:24 Test Item Value Reference Range Interpretation [...] code = 89 U/L 6-55 H 347) Shaper Setter ID - KEVIN LCBC (HEMOGRAM ONLY)2021-10-30 05:18:23 Test Item Value [...] (BEAKER) (test code = 413) OXYGEN SATURATION, [id number] 05:10:19 Test Item Value Reference Range Interpretation Comments O2 SATURATION (MEASURED) (BEAKER) 51.4 % (test code = 1455) POCT-GLUCOSE [id number] 21:17:21 Test Item Value Reference Range Interpretation Comments POC-GLUCOSE METER 247 mg/dL 70-110 H : TESTED A T [facility] 6720 (BEAKER) (test code = [facility], 1538) 68497: Shaper Setter/Techni stephanie ID = [id number] for Jackie Brown BASIC METABOLIC [id number] 19:39:22 Test Item Value Reference Range Interpretation [...] S NOT APPLICABLE FOR DIALYSIS PATIEN TS. Shaper Setter ID - [id number] 19:39:22 Test Item Value Reference Range Interpretation Comments MAGNESIUM (BEAKER) (test code = 2.2 mg/dL 1.6-2.6 627) Shaper Setter ID - DBPOCT-GLUCOSE [id number] 17:17:12 Test Item Value Reference Range Interpretation Comments POC-GLUCOSE METER 240 mg/dL 70-110 H : TESTED A T [facility] 6720 (BEAKER) (test code = [facility], 1538) 15483: Shaper Setter/Techni stephanie ID = [id number] for OR PASQUALE ISAAC POCT-GLUCOSE [id number] 12:43:45 Test Item Value Reference Range Interpretation Comments POC-GLUCOSE METER 288 mg/dL 70-110 H : TESTED A T [facility] 6720 ([place]) (test code = [facility] [place], 1538) 22786: Shaper Setter/Techni stephanie ID = [id number] for OR PASQUALE ISAAC POCT-GLUCOSE [id number] 08:37:19 Test Item Value Reference Range Interpretation Comments POC-GLUCOSE METER 285 mg/dL 70-110 H : TESTED A T [facility] 6720 (REILLY) (test code = [facility], 1538) 32609: Shaper Setter/Techni stephanie ID = [id number] for OR DIANA ISAACIS RAD, CHEST, 1 VIEW, NON [id number] 07:17:00Reason for exam:->Pulmonary edemaShould this be performed at the bedside?->Yes [facility] : 1960 Sex: MFINAL REPORT RAD, CHEST, 1 VIEW, NON DEPT INDICATION: Pulmonary edema COMPARISON: 11/05/2021 FINDINGS: Portable frontal view of the chest. IMPRESSION: Support Lines: Sternotomy wires Lungs and pleura: Lungs are predominantly clear. Mild basilar atelectasis. No significant pneumothorax. Heart and mediastinum: Stable contours. Additional findings: None. Signed: Carol Ramirez Verified Date/Time: 10/29/2021 07:17:53 -GLUCOSE [id number] 07:04:20 Test Item Value Reference Range Interpretation Comments POC-GLUCOSE METER 266 mg/dL 70-110 H : TESTED A T [facility] 6720 (BEAKER) (test code = [facility], 1538) 20882: Shaper Setter/Techni stephanie ID = [id number] for ARISTIDES LAM [id number] 04:58:10 Test Item Value Reference Range Interpretation Comments MAGNESIUM (BEAKER) (test code = 2.1 mg/dL 1.6-2.6 627) Shaper Setter ID - PANTERA MHEPATIC FUNCTION [id number] 04:58:10 Test Item Value Reference Range Interpretation [...] code = 109 U/L 6-55 H 347) Shaper Setter ID - PANTERA MBASIC METABOLIC [id number] 04:58:09 Test Item Value Reference Range Interpretation [...] S NOT APPLICABLE FOR DIALYSIS PATIEN TS. Shaper Setter ID - PANTERA MLACTIC ACID, [id number] 04:41:40 Test Item Value Reference Range Interpretation Comments LACTATE BLOOD ARTERIAL (2) 2.1 mmol/L 0.5-2.2 (BEAKER) (test code = 2874) Shaper Setter ID - PANTERA MCBC (HEMOGRAM ONLY)2021-10-29 04:35:40 Test Item Value [...] (BEAKER) (test code = 413) OXYGEN SATURATION, [id number] 04:32:40 Test Item Value Reference Range Interpretation Comments O2 SATURATION (MEASURED) (BEAKER) 56.3 % (test code = 1455) POCT-GLUCOSE [id number] 00:20:02 Test Item Value Reference Range Interpretation Comments POC-GLUCOSE METER 288 mg/dL 70-110 H : TESTED A T [facility] 6720 (BEAKER) (test code = [facility], 8663) 65067: Shaper Setter/Techni stephanie ID = [id number] for Re yes, Sairy [id number] 23:26:24 Test Item Value Reference Range Interpretation Comments MAGNESIUM (BEAKER) (test code = 2.1 mg/dL 1.6-2.6 627) Shaper Setter ID - DBBASIC METABOLIC [id number] 23:26:23 Test Item Value Reference Range Interpretation [...] S NOT APPLICABLE FOR DIALYSIS PATIEN TS. Shaper Setter ID - DBBASIC METABOLIC [id number] 11:41:42 Test Item Value Reference Range Interpretation [...] S NOT APPLICABLE FOR DIALYSIS PATIEN TS. Shaper Setter ID - KEVIN LURINALYSIS [id number] 11:31:18 Test Item Value Reference Range Interpretation Comments RBC UA (BEAKER) (test code = 519) 6 /HPF WBC UA (BEAKER) (test code = 520) 4 /HPF BACTERIA (BEAKER) (test code = 517) Rare SQUAMOUS EPITHELIAL (BEAKER) (test < /HPF code = 516) CRYSTALS, URINE (BEAKER) (test code None Seen = 1521) Shaper Setter ID - techURINALYSIS WITH MICROSCOPIC IF [id number] 11:31:12 Test Item Value Reference Range Interpretation [...] = 463) SOURCE(BEAKER) (test code = 2795) Shaper Setter ID - [auto]Shaper Setter ID - techPOCT-GLUCOSE [id number] 10:34:32 Test Item Value Reference Range Interpretation Comments POC-GLUCOSE METER 259 mg/dL 70-110 H : TESTED A T [facility] (BEAKER) (test code = [facility] [place], 1538) 25831: Shaper Setter/Techni stephanie ID = [id number] for SA NCHEZ, KRYSTLE RAD, CHEST, 1 VIEW, NON [id number] 08:00:00Reason for exam:->Pulmonary edemaShould this be performed at the bedside?->Yes [facility] : 1960 Sex: MFINAL [...] effusions with basilar atelectasis. Signed: Jhon Rocha MDReport Verified Date/Time: 10/28/2021 08:00:20 Reading Location: [facility] Radiology Reading Room POCT-GLUCOSE [id number] 07:27:58 Test Item Value Reference Range Interpretation Comments POC-GLUCOSE METER 127 mg/dL 70-110 H : TESTED A T [facility] 6720 (REILLY) (test code = [place], 1538) 14842: Shaper Setter/Techni stephanie ID = [id number] for ARISTIDES LAM POCT-GLUCOSE [id number] 05:31:35 Test Item Value Reference Range Interpretation Comments POC-GLUCOSE METER 138 mg/dL 70-110 H : TESTED A T [facility] 6720 (BEAKER) (test code = [place], 1538) 69281: Shaper Setter/Techni stephanie ID = [id number] for ALMAS ESCOBAR POCT-GLUCOSE [id number] 05:31:33 Test Item Value Reference Range Interpretation Comments POC-GLUCOSE METER 141 mg/dL 70-110 H : TESTED A T [facility] 6720 (BEAKER) (test code = [facility] [place], 1538) 75336: Shaper Setter/Techni stephanie ID = [id number] for CALVIN MUNIZ [id number] 04:26:54 Test Item Value Reference Range Interpretation Comments MAGNESIUM (BEAKER) (test code = 2.1 mg/dL 1.6-2.6 627) Shaper Setter ID - DBHEPATIC FUNCTION [id number] 04:26:54 Test Item Value Reference Range Interpretation [...] code = 148 U/L 6-55 H 347) Shaper Setter ID - DBBASIC METABOLIC [id number] 04:26:53 Test Item Value Reference Range Interpretation [...] S NOT APPLICABLE FOR DIALYSIS PATIEN TS. Shaper Setter ID - DBLACTIC ACID, [id number] 04:15:41 Test Item Value Reference Range Interpretation Comments LACTATE BLOOD 1.1 mmol/L 0.5-2.2 Specimen sligh tly ARTERIAL (2) (BEAKER) hemoly zed (test code = 2874) Shaper Setter ID - DBCBC (HEMOGRAM ONLY)2021-10-28 04:09:40 Test [...] (BEAKER) (test code = 413) BLOOD GAS, [id number] 04:03:54 Test Item Value Reference Range Interpretation [...] (test code = 1819) 21.0 OXYGEN SATURATION, [id number] 04:02:16 Test Item Value Reference Range Interpretation Comments O2 SATURATION (MEASURED) (BEAKER) 77.5 % (test code = 1455) POCT-GLUCOSE [id number] 02:29:28 Test Item Value Reference Range Interpretation Comments POC-GLUCOSE METER 144 mg/dL 70-110 H : TESTED A T [facility] 6720 (BEAKER) (test code = [facility], 1538) 27372: Shaper Setter/Techni stephanie ID = [id number] for CALVIN MUNIZ POCT-GLUCOSE [id number] 01:50:48 Test Item Value Reference Range Interpretation Comments POC-GLUCOSE METER 158 mg/dL 70-110 H : TESTED A T [facility] 6720 (BEAKER) (test code = [facility], 1538) 54810: Shaper Setter/Techni stephanie ID = [id number] for Pa rnell (pca2), Meikole POCT-GLUCOSE [id number] 23:47:40 Test Item Value Reference Range Interpretation Comments POC-GLUCOSE METER 229 mg/dL 70-110 H : TESTED A T [facility] 6720 (BEAKER) (test code = [facility], 1538) 55000: Shaper Setter/Techni stephanie ID = [id number] for Pa rnell (pca2), Meikole POCT-GLUCOSE [id number] 22:43:20 Test Item Value Reference Range Interpretation Comments POC-GLUCOSE METER 211 mg/dL 70-110 H : TESTED A T [facility] 6720 (BEAKER) (test code = [facility], 1538) 65740: Shaper Setter/Techni stephanie ID = [id number] for Yohannes kerns (pca2), Meikole BASIC METABOLIC [id number] 22:01:27 Test Item Value Reference Range Interpretation [...] S NOT APPLICABLE FOR DIALYSIS PATIEN TS. Shaper Setter ID - DBPOCT-GLUCOSE [id number] 21:44:11 Test Item Value Reference Range Interpretation Comments POC-GLUCOSE METER 234 mg/dL 70-110 H : TESTED A T [facility] 6720 (BEAKER) (test code = [facility], 1538) 53439: Shaper Setter/Techni stephanie ID = [id number] for ALMAS ESCOBAR POCT-GLUCOSE [id number] 20:48:05 Test Item Value Reference Range Interpretation Comments POC-GLUCOSE METER 225 mg/dL 70-110 H : TESTED A T [facility] 6720 (BEAKER) (test code = [facility], 1538) 37264: Shaper Setter/Techni stephanie ID = [id number] for Yohannes kerns (pca2), Meikole POCT-GLUCOSE [id number] 19:48:15 Test Item Value Reference Range Interpretation Comments POC-GLUCOSE METER 243 mg/dL 70-110 H : TESTED A T [facility] 6720 (BEAKER) (test code = [facility], 1538) [id number]: Shaper Setter/Techni stephanie ID = [id number] for Yohannes kerns (pca2), Axel POCT-GLUCOSE [id number] 18:29:02 Test Item Value Reference Range Interpretation Comments POC-GLUCOSE METER 218 mg/dL 70-110 H : TESTED A T [facility] 6720 (BEAKER) (test code [facility], = 1538) 93193: Shaper Setter/Techni stephanie ID = [id number] for RODDY NOSA, CHRISTIE POCT-GLUCOSE [id number] 18:17:30 Test Item Value Reference Range Interpretation Comments POC-GLUCOSE METER 213 mg/dL 70-110 H : TESTED A T [facility] 6720 (BEAKER) (test code [facility], = 1538) 07784: Shaper Setter/Techni stephanie ID = [id number] for RODDY NOSA, CHRISTIE POCT-GLUCOSE [id number] 16:33:09 Test Item Value Reference Range Interpretation Comments POC-GLUCOSE METER 238 mg/dL 70-110 H : TESTED A T [facility] 6720 (BEAKER) (test code [facility], = 1538) 56672: Shaper Setter/Techni stephanie ID = [id number] for RODDY NOSA, CHRISTIE ELISEO TITER AND [id number] 13:54:14 Test Item Value Reference Range Interpretation Comments ELISEO TITER (BEAKER) (test code = :40 1541) ELISEO PATTERN (BEAKER) (test code = Homogeneous 1781) ANTI-NUCLEAR ANTIBODY (ELISEO)2021-10-27 13:54:03 Test Item Value Reference Range Interpretation Comments ANTI-NUCLEAR ANTIBODY (ELISEO) (BEAKER) Positive Negative A (test code = 418) Test performed by IFA method.POCT-GLUCOSE [id number] 13:06:27 Test Item Value Reference Range Interpretation Comments POC-GLUCOSE METER 200 mg/dL 70-110 H : TESTED A T [facility] 6720 (BEAKER) (test code = [facility], 1538) 28922: Shaper Setter/Techni stephanie ID = [id number] for Tori Min BASIC METABOLIC [id number] 12:53:59 Test Item Value Reference Range Interpretation [...] S NOT APPLICABLE FOR DIALYSIS PATIEN TS. Shaper Setter ID - BSRAD, CHEST, 1 VIEW, NON [id number] 10:04:00Reason for exam:- >Pulmonary edemaShould this be performed at the bedside?->Yes [facility] : 1960 Sex: MFINAL REPORT AP view of the chest dated 10/27/2021 COMPARISON: 2CLINICAL INFORMATION: Pulmonary edema Comment: Heart is normal in size. Pulmonary vasculature is unremarkable. Subsegmental atelectasis is seen in the right lower lobe but. The rest of the lungs are clear. 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 No pulmonary infiltrate or pleural effusion is present. [place]-Cheli catheter and intra-aortic pump device remain place. Impression: Interval resolution of previously noted pulmonary edema. Signed: Jose Eduardo Garza MDReport Verified Date/Time: 10/27/2021 10:04:53 Reading Location: [facility] Radiology Reading Room [id number] 09:26:22 Test Item Value Reference Range Interpretation Comments FIBRINOGEN LEVEL (BEAKER) (test 451 mg/dl 225-434 H code = 658) [id number] 09:26:22 Test Item Value Reference Range Interpretation Comments PARTIAL THROMBOPLASTIN TIME 26.6 seconds 22.5-36.0 (BEAKER) (test code = 760) PROTHROMBIN TIME/[id number] 09:25:42 Test Item Value Reference Range Interpretation Comments PROTIME (BEAKER) 13.5 seconds 11.9-14.2 (test code = 759) INR (BEAKER) (test 1.05 See_Comment [Automat ed message] code = 370) The system Intelliworks generated this result transmitted ref erence range: <=5.90. The reference range was not used to int erpret this result as normal/abnormal . RECOMMENDED COUMADIN/WARFARIN INR THERAPY RANGESSTANDARD DOSE: 2.0 - 3.0 Includes: PROPHYLAXIS forvenous thrombosis, systemic embolization; TREATMENT for venous thrombosis and/or pulmonary embolus.HIGH RISK: Target INR is 2.5-3.5 for patients with mechanical heart valves.PLASMA FREE [id number] 08:02:57 Test Item Value Reference Range Interpretation Comments HEMOGLOBIN PLASMA (BEAKER) (test 30.0 mg/dl 0.0-30.0 code = 1054) LACTATE DEHYDROGENASE (LDH)2021-10-27 07:41:38 Test Item Value Reference Range Interpretation Comments LACTATE DEHYDROGENASE (BEAKER) (test 706 U/L 125-220 H code = 635) Shaper Setter ID - BSCBC (HEMOGRAM ONLY)2021-10-27 07:41:16 Test [...] (BEAKER) (test code = 413) EBV ANTIBODY, [id number] 07:16:06 Test Item Value Reference Range Interpretation [...] Al Equivocal >/= 1.1 Al PositiveCYTOMEGALOVIRUS ANTIBODY, [id number] 07:16:05 Test Item Value Reference Range Interpretation Comments CYTOMEGALOVIRUS, IGG (BEAKER) Negative Negative, Equivocal (test code = 3429) CMV IgG Result Interpretation: </= 0.8 Al Negative 0.9-1.0 Al Equivocal >/=1.1 Al PositivePOCT-GLUCOSE [id number] 06:44:33 Test Item Value Reference Range Interpretation Comments POC-GLUCOSE METER 159 mg/dL 70-110 H : TESTED A T [facility] 6720 (BEAKER) (test code = [facility] [place], 1538) 880[address]: Shaper Setter/Techni stephanie ID = [id number] for SAW ALCANTARA HEPATIC FUNCTION [id number] 05:21:03 Test Item Value Reference Range Interpretation [...] code = 209 U/L 6-55 H 347) Shaper Setter ID - PANTERA MBASIC METABOLIC [id number] 05:21:02 Test Item Value Reference Range Interpretation [...] S NOT APPLICABLE FOR DIALYSIS PATIEN TS. Shaper Setter ID - PANTERA [id number] 05:21:02 Test Item Value Reference Range Interpretation Comments MAGNESIUM (BEAKER) (test code = 2.0 mg/dL 1.6-2.6 627) Shaper Setter ID - PANTERA MLACTIC ACID, [id number] 04:58:45 Test Item Value Reference Range Interpretation Comments LACTATE BLOOD 1.2 mmol/L 0.5-2.2 Specimen moder ately ARTERIAL (2) (BEAKER) hemoly zed (test code = 2874) Shaper Setter ID - BSSpecimen slightly lipemicPOCT-GLUCOSE [id number] 03:52:27 Test Item Value Reference Range Interpretation Comments POC-GLUCOSE METER 52 mg/dL 70-110 L : TESTED A T [facility] 6720 (BEAKER) (test code = [facility], 1538) 95784: Shaper Setter/Techni stephanie ID = [id number] for CARLOS ORTEZ POCT-GLUCOSE [id number] 02:11:20 Test Item Value Reference Range Interpretation Comments POC-GLUCOSE METER 112 mg/dL 70-110 H : TESTED A T [facility] 6720 (BEAKER) (test code = [facility], 1538) 33800: Shaper Setter/Techni stephanie ID = [id number] for SAW ALCANTARA BASIC METABOLIC [id number] 21:02:54 Test Item Value Reference Range Interpretation [...] S NOT APPLICABLE FOR DIALYSIS PATIEN TS. Shaper Setter ID - BSBLOOD GAS, [id number] 20:57:19 Test Item Value Reference Range Interpretation [...] (test code = 1819) 21.0 OXYGEN SATURATION, [id number] 20:47:50 Test Item Value Reference Range Interpretation Comments O2 SATURATION (MEASURED) (BEAKER) 55.2 % (test code = 1455) LACTIC ACID, [id number] 20:46:31 Test Item Value Reference Range Interpretation Comments LACTATE BLOOD 1.5 mmol/L 0.5-2.2 Specimen sligh tly ARTERIAL (2) (BEAKER) hemoly zed (test code = 2874) Shaper Setter ID - BSPOCT-GLUCOSE [id number] 18:41:27 Test Item Value Reference Range Interpretation Comments POC-GLUCOSE METER 174 mg/dL 70-110 H : TESTED A T [facility] 6720 (BEAKER) (test code = [facility] [place], 1538) 31358: Shaper Setter/Techni stephanie ID = [id number] for UY , RANGEL [id number] 16:42:23 Test Item Value Reference Range Interpretation Comments MAGNESIUM (BEAKER) 2.0 mg/dL 1.6-2.6 Specimen moderately (test code = 627) hemolyzed Shaper Setter ID - BSBASIC METABOLIC [id number] 16:42:23 Test Item Value Reference Range Interpretation [...] S NOT APPLICABLE FOR DIALYSIS PATIEN TS. Shaper Setter ID - BSPOCT-GLUCOSE [id number] 16:29:32 Test Item Value Reference Range Interpretation Comments POC-GLUCOSE METER 168 mg/dL 70-110 H : TESTED A T [facility] 6720 (BEAKER) (test code = [facility], 1538) 10455: Shaper Setter/Techni stephanie ID = [id number] for UY , RANGEL POCT-GLUCOSE [id number] 15:48:56 Test Item Value Reference Range Interpretation Comments POC-GLUCOSE METER 149 mg/dL 70-110 H : TESTED A T [facility] 6720 (BEAKER) (test code = [facility], 1538) 20405: Shaper Setter/Techni stephanie ID = [id number] for UY , RANGEL VARICELLA ZOSTER ANTIBODY, [id number] 15:13:27 Test Item Value Reference Range Interpretation Comments VARICELLA ZOSTER IGG (AL) (BEAKER) 6.8 (test code = 3197) VARICELLA ZOSTER RESULT INTERPRETATIONS: <=0.8 Al Nonreactive: Presumed non-immune to VZV 0.9-1.0 Al Equivocal >=1.1 Al Reactive: Presumed immune to VZVHERPES VIRUS ANTIBODY, [id number] 15:12:09 Test Item Value Reference Range Interpretation Comments HERPES VIRUS IGG (BEAKER) (test code Positive = 1807) HSV 1 IGG = POSITIVEHSV 2 IGG = NEGATIVECREATININE [id number] 14:38:44 Test Item Value Reference Range Interpretation Comments CREATININE CLEARANCE (BEAKER) 61.2 mL/min 70.0-140.0 L (test code = 357) VOLUME, TOTAL (BEAKER) (test code 4450 ml = 1457) CREATININE URINE (BEAKER) (test 42.3 mg/dL code = 375) Shaper Setter ID - PANTERA MTOXOPLASMA GONDII ANTIBODY, [id number] 14:18:31 Test Item Value Reference Range Interpretation Comments TOXOPLASMA GONDII IGG QUANTITATIVE < IU/mL <10.0 (BEAKER) (test code = 3428) Toxoplasma Gondii IgG Result Interpretation: </= 9.9 IU/mL Normal 10-11 IU/mL Equivocal >/= 12 IU/mL PositiveCT, CHEST, WITHOUT CONTRAST 2021-10-26 12:43:00Unlisted Reason for Exam - Click Yes and Enter Reason Below- >YesUnlisted Reason for Exam->Transplant/VAD Evaluation [facility] VICTOR JUAN : 1960 Sex: MFINAL REPORT CT of [...] or hilar lymphadenopathy. There is a right-sided [place] catheter, and an Impella device. Heart is [...] right pleural effusions. Mild anasarca. Signed: Anitha Parekhort Verified Date/Time: 10/26/2021 12:43:09 Reading Location: [address] Ortho Consult Reading Room CT, ABDOMEN, WITHOUT [id number] 12:43:00Unlisted Reason for Exam - Click Yes and Enter Reason Below->YesUnlisted Reason for Exam->Transplant/VAD EvaluationWill this procedure require oral contrast?->[facility] ED[facility] VICTOR JUAN : 1960 Sex: MFINAL REPORT CT of [...] or hilar lymphadenopathy. There is a right-sided [place] catheter, and an Impella device. Heart is [...] pleural effusions. Mild anasarca. Signed: Anitha Parekh Verified Date/Time: 10/26/2021 12:43:09 Reading Location: [address] Ortho Consult Reading Room POCT-GLUCOSE [id number] 12:21:52 Test Item Value Reference Range Interpretation Comments POC-GLUCOSE METER 193 mg/dL 70-110 H : TESTED A T [facility] 67[facility] (Adwanted) (test code = [facility] [place], 1538) 09163: Shaper Setter/Techni stephanie ID = [id number] for RANGEL CHAVARRIA [id number] 12:05:12 Test Item Value Reference Range Interpretation Comments RPR SCREEN (Adwanted) (test code = Nonreactive Nonreactive 420) CT, BRAIN, WITHOUT [id number] 10:13:00Unlisted Reason for Exam - Click Yes and Enter Reason Below->YesUnlisted Reason for Exam->Transplant/[facility]AD [facility] : 1960 Sex: [...] MDReport Verified Date/Time: 10/26/2021 10:13:28 Reading Location: [address] Neuro Reading Room (CELLAVISION MANUAL DIFF)2021-10-26 09:55:44 [...] CONCENTRATION Adequate (CELLAVISION)(BEAKER) (test code = 3438) Shaper Setter ID - Whitney Mccauley comments: Slide comments:CBC W/PLT COUNT & AUTO [id number] 09:55:43 Test Item Value Reference Range Interpretation [...] (BEAKER) (test code = 413) BASIC METABOLIC [id number] 09:48:42 Test Item Value Reference Range Interpretation [...] S NOT APPLICABLE FOR DIALYSIS PATIEN TS. Shaper Setter ID - PANTERA MPOCT-GLUCOSE [id number] 08:12:22 Test Item Value Reference Range Interpretation Comments POC-GLUCOSE METER 187 mg/dL 70-110 H : TESTED A T [facility] 6720 (BEAKER) (test code = [facility], 1538) 10889: Shaper Setter/Techni stephanie ID = [id number] for UY , RANGEL PLASMA FREE [id number] 08:05:48 Test Item Value Reference Range Interpretation Comments HEMOGLOBIN PLASMA (BEAKER) (test 60.0 mg/dl 0.0-30.0 H code = 1054) POCT-GLUCOSE [id number] 06:19:38 Test Item Value Reference Range Interpretation Comments POC-GLUCOSE METER 126 mg/dL 70-110 H : TESTED A T [facility] 6720 (BEAKER) (test code = [facility], 1538) 04612: Shaper Setter/Techni stephanie ID = [id number] for BR OWN, LELE POCT-GLUCOSE [id number] 05:15:38 Test Item Value Reference Range Interpretation Comments POC-GLUCOSE METER 104 mg/dL 70-110 : TESTED A T [facility] 6720 (BEAKER) (test code = [facility] [employer] [facility], 1538) 85770: Shaper Setter/Techni stephanie ID = [id number] for BR OWN, LELE OXYGEN SATURATION, [id number] 05:11:03 Test Item Value Reference Range Interpretation Comments O2 SATURATION (MEASURED) (BEAKER) 58.3 % (test code = 1455) RAD, CHEST, 1 VIEW, NON [id number] 04:31:00Reason for exam:- >ImpellaShould this be performed at the bedside?->Yes [facility] : 1960 Sex: MFINAL REPORT RAD, CHEST, 1 VIEW, NON DEPT INDICATION: Impella COMPARISON: October 25, 2021 FINDINGS: Portable frontal view of the chest. IMPRESSION: Support Lines: Right IJ [place]li catheter tip overlies the right pulmonary artery. Impella device is stable. Lungs and pleura: Increased bilateral pulmonary opacities suggestive of pulmonary edema. No pneumothorax.Heart and mediastinum: Stable contours. Additional findings: None. Signed: Benny Velasquez Verified Date/Time: 10/26/2021 04:31:37 POCT- GLUCOSE [id number] 04:22:22 Test Item Value Reference Range Interpretation Comments POC-GLUCOSE METER 125 mg/dL 70-110 H : TESTED A T [facility] (BEAKER) (test code = DEYSIMINESH [facility], 1538) 25914: Shaper Setter/Techni stephanie ID = [id number] for LELE ROY LACTIC ACID, [id number] 03:18:30 Test Item Value Reference Range Interpretation Comments LACTATE BLOOD ARTERIAL (2) 0.9 mmol/L 0.5-2.2 (BEAKER) (test code = 2874) Shaper Setter ID - PANTERA MBLOOD GAS, [id number] 03:11:46 Test Item Value Reference Range Interpretation [...] (BEAKER) (test code = 1819) 21.0 POCT-GLUCOSE [id number] 03:07:35 Test Item Value Reference Range Interpretation Comments POC-GLUCOSE METER 157 mg/dL 70-110 H : TESTED A T [facility] 67[facility] (BEAKER) (test code = [facility] [place], 1538) 45277: Shaper Setter/Techni stephanie ID = [id number] for LELE ROY LACTATE DEHYDROGENASE (LDH)2021-10-26 02:38:03 Test Item Value Reference Range Interpretation Comments LACTATE DEHYDROGENASE (BEAKER) (test 1030 U/L 125-220 H code = 635) Shaper Setter ID - MIRI WCOMPREHENSIVE METABOLIC [id number] 02:38:02 Test Item Value Reference Range Interpretation [...] S NOT APPLICABLE FOR DIALYSIS PATIEN TS. Shaper Setter ID - MIRI [id number] 02:26:36 Test Item Value Reference Range Interpretation Comments PARTIAL THROMBOPLASTIN TIME 75.9 seconds 22.5-36.0 H (BEAKER) (test code = 760) PROTHROMBIN [id number] 02:24:57 Test Item Value Reference Range Interpretation Comments PROTIME (BEAKER) 14.8 seconds 11.9-14.2 H (test code = 759) INR (BEAKER) (test 1.18 See_Comment [Automat ed message] code = 370) The system Intelliworks generated this result transmitted ref erence range: <=5.90. The reference range was not used to int erpret this result as normal/abnormal . RECOMMENDED COUMADIN/WARFARIN INR THERAPY RANGESSTANDARD DOSE: 2.0 - 3.0 Includes: PROPHYLAXIS forvenous thrombosis, systemic embolization; TREATMENT for venous thrombosis and/or pulmonary embolus.HIGH RISK: Target INR is 2.5-3.5 for patients with mechanical heart valves.POCT-GLUCOSE [id number] 02:14:06 Test Item Value Reference Range Interpretation Comments POC-GLUCOSE METER 135 mg/dL 70-110 H : TESTED A T [facility] 6720 (Adwanted) (test code = [facility], 1538) 64657: Shaper Setter/Techni stephanie ID = [id number] for LELE ROY OXYGEN SATURATION, [id number] 02:11:57 Test Item Value Reference Range Interpretation Comments O2 SATURATION (MEASURED) (Adwanted) 52.9 % (test code = 1455) POCT-GLUCOSE [id number] 01:24:51 Test Item Value Reference Range Interpretation Comments POC-GLUCOSE METER 97 mg/dL 70-110 : TESTED A T [facility] 6720 (Adwanted) (test code = [facility] Chip[facility]ESH R [facility], 1538) 71027: Shaper Setter/Techni stephanie ID = [id number] for LUIS F Silva LELE POCT-GLUCOSE [id number] 00:26:51 Test Item Value Reference Range Interpretation Comments POC-GLUCOSE METER 121 mg/dL 70-110 H : TESTED A T [facility] 6720 (BEAKER) (test code = [facility], 1538) 09097: Shaper Setter/Techni stephanie ID = [id number] for BR OWN, LELE BASIC METABOLIC [id number] 23:48:39 Test Item Value Reference Range Interpretation [...] S NOT APPLICABLE FOR DIALYSIS PATIEN TS. Shaper Setter ID - BSPOCT-GLUCOSE [id number] 23:33:57 Test Item Value Reference Range Interpretation Comments POC-GLUCOSE METER 138 mg/dL 70-110 H : TESTED A T [facility] 6720 (BEAKER) (test code = [facility], 1538) 86268: Shaper Setter/Techni stephanie ID = [id number] for BR OWN, LELE POCT-GLUCOSE [id number] 22:40:22 Test Item Value Reference Range Interpretation Comments POC-GLUCOSE METER 166 mg/dL 70-110 H : TESTED A T [facility] 6720 (BEAKER) (test code = [facility], 1538) 83861: Shaper Setter/Techni stephanie ID = [id number] for BR OWN, LELE LACTIC ACID, [id number] 21:43:37 Test Item Value Reference Range Interpretation Comments LACTATE BLOOD ARTERIAL (2) 1.8 mmol/L 0.5-2.2 (BEAKER) (test code = 2874) Shaper Setter ID - BSHGB/HCT (H&H) - STAT [id number] 21:36:18 Test Item Value Reference Range Interpretation Comments HEMOGLOBIN (BEAKER) (test code = 9.9 GM/DL 13.0-16.8 L 410) HEMATOCRIT (BEAKER) (test code = 29.0 % 40.0-50.0 L 411) BLOOD GAS, [id number] 21:36:17 Test Item Value Reference Range Interpretation Comments PH ARTERIAL (BEAKER) (test code = 7.53 7.35-7.45 H 383) PCO2 ARTERIAL (BEAKER) (test code 34 mm Hg 35-45 L = 384) PO2 ARTERIAL (BEAKER) (test code = 92 mm Hg 80-90 H 385) O2 SATURATION ARTERIAL (BEAKER) 97.7 % 96.0-97.0 H (test code = 386) HCO3 ARTERIAL (BEAKER) (test code 28 mmol/L 21-29 = 388) BASE EXCESS ARTERIAL (BEAKER) 5.4 mmol/L -2.0-3.0 H (test code = 387) PATIENT TEMPERATURE (BEAKER) (test 37.5 code = 1818) FIO2 (BEAKER) (test code = 1819) 21.0 SODIUM NA-STAT [id number] 21:36:17 Test Item Value Reference Range Interpretation Comments SODIUM (BEAKER) (test code = 381) 133 meq/L 136-145 L GLUCOSE-STAT [id number] 21:36:17 Test Item Value Reference Range Interpretation Comments GLUCOSE RANDOM (BEAKER) (test code 185 mg/dL 70-110 H = 652) OXYGEN SATURATION, [id number] 21:35:34 Test Item Value Reference Range Interpretation Comments O2 SATURATION (MEASURED) (BEAKER) 55.6 % (test code = 1455) POTASSIUM-STAT [id number] 21:35:13 Test Item Value Reference Range Interpretation Comments POTASSIUM (BEAKER) (test code = 3.6 meq/L 3.6-5.5 379) POCT-GLUCOSE [id number] 21:30:02 Test Item Value Reference Range Interpretation Comments POC-GLUCOSE METER 198 mg/dL 70-110 H : TESTED A T [facility] 67[facility] (BEAKER) (test code = [facility] Bhaskar [facility], 1538) 81342: Shaper Setter/Techni stephanie ID = [id number] for LELE ROY [id number] 20:37:42 Test Item Value Reference Range Interpretation Comments PARTIAL THROMBOPLASTIN TIME 68.3 seconds 22.5-36.0 H (BEAKER) (test code = 760) POCT-GLUCOSE [id number] 20:26:31 Test Item Value Reference Range Interpretation Comments POC-GLUCOSE METER 232 mg/dL 70-110 H : TESTED A T [facility] 6720 (BEAKER) (test code = [facility] Bhaskar [facility], 1538) 19458: Shaper Setter/Techni stephanie ID = [id number] for LELE ROY OXYGEN SATURATION, [id number] 20:21:01 Test Item Value Reference Range Interpretation Comments O2 SATURATION (MEASURED) (BEAKER) 43.2 % (test code = 1455) POCT-GLUCOSE [id number] 19:16:23 Test Item Value Reference Range Interpretation Comments POC-GLUCOSE METER 274 mg/dL 70-110 H : TESTED A T [facility] 6720 (BEAKER) (test code = [facility], 1538) 17377: Shaper Setter/Techni stephanie ID = [id number] for LELE ROY POCT-GLUCOSE [id number] 17:42:54 Test Item Value Reference Range Interpretation Comments POC-GLUCOSE METER 255 mg/dL 70-110 H : TESTED A T [facility] 6720 (BEAKER) (test code = [facility] Bhaskar [facility], 1538) 98552: Shaper Setter/Techni stephanie ID = [id number] for LILI JOHNSON [id number] 16:30:33 Test Item Value Reference Range Interpretation Comments MAGNESIUM (BEAKER) 2.1 mg/dL 1.6-2.6 Specimen slightly (test code = 627) hemolyzed Shaper Setter ID - BSBASIC METABOLIC [id number] 16:30:33 Test Item Value Reference Range Interpretation [...] S NOT APPLICABLE FOR DIALYSIS PATIEN TS. Shaper Setter ID - BSPROTEIN ELECTROPHORESIS, SERUM WITH REFLEX [...] protein malnutrition or a protein losing state. [id number] Dimple Blas M.D. (BEAKER) (test code = 2616) PROTEIN TOTAL SERUM, 6.2 gm/dL 6.0-8.3 SPEP (BEAKER) (test code = 2660) Shaper Setter ID - KEVIN LOperator ID - [id number] 14:58:59 Test Item Value Reference Range Interpretation Comments FERRITIN (BEAKER) (test code = 2875.27 ng/mL 5.00-275.00 H 361) Shaper Setter ID - EFE GOperator ID - EFE GHEMOGLOBIN [id number] 14:38:11 Test Item Value Reference Range Interpretation Comments HEMOGLOBIN A1C 9.8 % See_Comment H [Automated m essage] ELECTROPHORESIS (BEAKER) The system which (test code = 3811) generated this result transmitted ref erence range: <=5.6%. The reference range was not used to int erpret this result as normal/abnormal . "The A1c is measured using a [facility]-certified method. HbA1c value equal to or greater than 6.5% as thediagnosis cutoff for diabetes. An HbA1c value of 5.7- 6.4% indicates increased risk for diabetes (prediabetes)."Shaper Setter ID - ADM OXYGEN SATURATION, [id number] 14:26:42 Test Item Value Reference Range Interpretation Comments O2 SATURATION (MEASURED) (BEAKER) 62.5 % (test code = 1455) HEPATITIS A ANTIBODY, [id number] 13:56:34 Test Item Value Reference Range Interpretation Comments HEPATITIS A IGG ANTIBODY (BEAKER) Nonreactive Nonreactive (test code = 2797) Shaper Setter ID - KEVIN ESCOBAREPATITIS B CORE ANTIBODY, [id number] 13:56:33 Test Item Value Reference Range Interpretation Comments HEPATITIS B CORE TOTAL ANTIBODY Nonreactive Nonreactive (BEAKER) (test code = 497) Shaper Setter ID - KEVIN ESCOBAREPATITIS PANEL, [id number] 13:56:33 Test Item Value Reference Range Interpretation Comments HEPATITIS A IGM ANTIBODY (BEAKER) Nonreactive Nonreactive (test code = 498) HEPATITIS B CORE IGM ANTIBODY Nonreactive Nonreactive (BEAKER) (test code = 645) HEPATITIS C ANTIBODY (BEAKER) Nonreactive Nonreactive (test code = 367) HEPATITIS B SURFACE ANTIGEN (2) Nonreactive Nonreactive (BEAKER) (test code = 2585) Shaper Setter ID - KEVIN LHIV-1 ANTIGEN WITH HIV-1/2 [id number] 13:56:33 Test Item Value Reference Range Interpretation Comments HIV-1 ANTIGEN WITH HIV 1\\T\\2 Nonreactive Nonreactive ANTIBODY (2) (BEAKER) (test code = 2586) Shaper Setter ID - PONCHOAYA L(CELLAVISION MANUAL DIFF)2021-10-25 13:42:14 Test Item Value [...] CONCENTRATION Adequate (CELLAVISION)(BEAKER) (test code = 3438) Shaper Setter ID - Akosua Grissom comments: Slide comments:CBC W/PLT COUNT & AUTO [id number] 13:42:13 Test Item Value Reference Range Interpretation [...] (BEAKER) (test code = 413) VITAMIN D, [id number] 13:27:21 Test Item Value Reference Range Interpretation Comments VITAMIN D 25-OH (BEAKER) (test 35.9 ng/mL 6.6-49.9 code = 2764) Effective 07/18/2017: Reference Range ChangeNew: 6.6-49.9 ng/mL Previous: 13.0-47.8 ng/mLRecommended Vitamin D Target Range: 30.0-40.0 ng/mLOperator ID - KEVIN [id number] 13:27:10 Test Item Value Reference Range Interpretation Comments THYROID STIMULATING HORMONE 1.260 uIU/mL 0.350-4.940 (BEAKER) (test code = 772) Shaper Setter ID - PONCHOALESHA [id number] 13:27:09 Test Item Value Reference Range Interpretation Comments PROSTATE SPECIFIC ANTIGEN (BEAKER) 7.3 ng/mL 0.0-4.0 H (test code = 844) Shaper Setter ID - KEVIN LT4, [id number] 13:27:09 Test Item Value Reference Range Interpretation Comments FREE T4 (BEAKER) (test code = 655) 1.21 ng/dL 0.70-1.48 Shaper Setter ID - KEVIN STEFANIA/S, RENAL, [id number] 13:14:00Reason for exam:- >transplantVAD evalShould this be performed at the bedside?->Yes [facility] : 1960 Sex: MFINAL [...] Abner Perdomo MDReport Verified Date/Time: 10/25/2021 13:14:23 [id number] 13:11:35 Test Item Value Reference Range Interpretation Comments TRANSFERRIN (BEAKER) (test code = 200 mg/dL 174-382 541) Shaper Setter ID - KEVIN [id number] 13:11:18 Test Item Value Reference Range Interpretation Comments PREALBUMIN (BEAKER) (test code = 12 mg/dL 14-45 L 586) Shaper Setter ID - KEVIN TREVOR, [id number] 13:11:18 Test Item Value Reference Range Interpretation Comments IRON (BEAKER) (test code = 547) 58.0 ug/dL 40.0-160.0 Shaper Setter ID - KEVIN LB-TYPE NATRIURETIC FACTOR (BNP)2021-10-25 13:03:53 Test Item Value Reference Range Interpretation Comments B-TYPE NATRIURETIC PEPTIDE (BEAKER) 552 pg/mL 0-100 H (test code = 700) Shaper Setter ID - EFE [id number] 12:39:49 Test Item Value Reference Range Interpretation Comments PARTIAL THROMBOPLASTIN TIME 78.3 seconds 22.5-36.0 H (BEAKER) (test code = 760) PROTHROMBIN TIME/[id number] 12:38:09 Test Item Value Reference Range Interpretation Comments PROTIME (BEAKER) 15.6 seconds 11.9-14.2 H (test code = 759) INR (BEAKER) (test 1.26 See_Comment [Automat ed message] code = 370) The system [employer] generated this result transmitted ref erence range: <=5.90. The reference range was not used to int erpret this result as normal/abnormal . RECOMMENDED COUMADIN/WARFARIN INR THERAPY RANGESSTANDARD DOSE: 2.0 - 3.0 Includes: PROPHYLAXIS forvenous thrombosis, systemic embolization; TREATMENT for venous thrombosis and/or pulmonary embolus.HIGH RISK: Target INR is 2.5-3.5 for patients with mechanical heart valves.POCT-GLUCOSE [id number] 12:32:48 Test Item Value Reference Range Interpretation Comments POC-GLUCOSE METER 161 mg/dL 70-110 H : TESTED A T [facility] (BEAKER) (test code = [facility], 1538) [address]: Shaper Setter/Techni stephanie ID = [id number] for LILI JOHNSON LACTATE DEHYDROGENASE (LDH)2021-10-25 11:48:54 Test Item Value Reference Range Interpretation Comments LACTATE DEHYDROGENASE (BEAKER) (test 1278 U/L 125-220 H code = 635) Shaper Setter ID - PONCHOALESHA [id number] 11:48:54 Test Item Value Reference Range Interpretation Comments LIPASE (BEAKER) (test code = 749) 79 U/L 8-78 H Shaper Setter ID - KEVIN [id number] 11:48:53 Test Item Value Reference Range Interpretation Comments AMYLASE (BEAKER) (test code = 349) 37 U/L 25-125 Shaper Setter ID - KEVIN LGAMMA GLUTAMYL TRANSFERASE (GGT)2021-10-25 11:48:53 Test Item Value Reference Range Interpretation Comments GAMMA GLUTAMYL TRANSFERASE (BEAKER) 18 U/L 9-64 (test code = 364) Shaper Setter ID - KEVIN [id number] 11:48:52 Test Item Value Reference Range Interpretation Comments MAGNESIUM (BEAKER) (test code = 2.1 mg/dL 1.6-2.6 627) Shaper Setter ID - KEVIN [id number] 11:48:52 Test Item Value Reference Range Interpretation Comments PHOSPHORUS (BEAKER) (test code = 2.0 mg/dL 2.3-4.7 L 604) Shaper Setter ID - KEVIN LURIC [id number] 11:48:52 Test Item Value Reference Range Interpretation Comments URIC ACID (BEAKER) (test code = 9.7 mg/dL 2.6-7.2 H 773) Shaper Setter ID - KEVIN LHEPATIC FUNCTION [id number] 11:48:51 Test Item Value Reference Range Interpretation [...] code = 356 U/L 6-55 H 347) Shaper Setter ID - KEVIN LLIPID [id number] 11:48:51 Test Item Value Reference Range Interpretation [...] Borderline 130-159 High 160-189 Very High >=190 Shaper Setter ID - KEVINLRETICULOCYTE [id number] 11:25:05 Test Item Value Reference Range Interpretation Comments RETICULOCYTE COUNT PCT (BEAKER) (test 2.7 % 0.5-1.8 H code = 575) Shaper Setter ID - [id number] comments: Slide comments:PLASMA FREE [id number] 09:52:22 Test Item Value Reference Range Interpretation Comments HEMOGLOBIN PLASMA (BEAKER) (test 40.0 mg/dl 0.0-30.0 H code = 1054) BASIC METABOLIC [id number] 09:34:08 Test Item Value Reference Range Interpretation [...] S NOT APPLICABLE FOR DIALYSIS PATIEN TS. Shaper Setter ID - PIAYA LPOCT-GLUCOSE [id number] 09:24:20 Test Item Value Reference Range Interpretation Comments POC-GLUCOSE METER 183 mg/dL 70-110 H : TESTED A T [facility] (BEAKER) (test code = [place], 1538) [address]: Shaper Setter/Techni stephanie ID = [id number] for LILI JOHNSON RAD, CHEST, 1 VIEW, NON [id number] 07:59:00Reason for exam:- >ImpellaShould this be performed at the bedside?->Yes [facility] : 1960 Sex: MFINAL REPORT AP view of the chest dated 10/25/2021 COMPARISON: 10/24/2021LINICAL INFORMATION: Impella Comment: Heart is in upper limits of normal in size. Pulmonary vasculature is unremarkable. There is interval improvement of atelectatic changes in the right mid lobe. The rest of the lungs are clear. No pulmonary infiltrate or pleural effusion is present. [place]-Cheli catheter and intra-aortic prepump device are present. Signed: Jose Eduardo Garza MDReport Verified Date/Time: 10/25/2021 07:59:15 Reading Location: [facility] Radiology Reading Room Electronically signedby: JOSE [...] CONCENTRATION Adequate (CELLAVISION)(BEAKER) (test code = 3438) Shaper Setter ID - Akosua Grissom comments: Slide comments:CBC W/PLT COUNT & AUTO [id number] 07:41:16 Test Item Value Reference Range Interpretation [...] 0-0 (BEAKER) (test code = 413) POCT-GLUCOSE [id number] 07:17:46 Test Item Value Reference Range Interpretation Comments POC-GLUCOSE METER 157 mg/dL 70-110 H : TESTED A T [facility] 6720 (BEAKER) (test code = [facility], 1538) [address]: Shaper Setter/Techni stephanie ID = [id number] for JEROD WERNER VANCOMYCIN LEVEL, [id number] 07:00:42 Test Item Value Reference Range Interpretation Comments VANCOMYCIN TROUGH (BEAKER) (test 14.1 ug/mL 10.0-20.0 code = 522) Shaper Setter ID - [id number] 06:52:03 Test Item Value Reference Range Interpretation Comments MAGNESIUM (BEAKER) (test code = 2.1 mg/dL 1.6-2.6 627) Shaper Setter ID - eoPOCT-GLUCOSE [id number] 05:36:32 Test Item Value Reference Range Interpretation Comments POC-GLUCOSE METER 191 mg/dL 70-110 H : TEST[facility] A T [facility] 6720 ([facility] (test code = [facility], 1538) [address]: Shaper Setter/Techni stephanie ID = [id number] for JEROD WERNER POCT-GLUCOSE [id number] 04:34:06 Test Item Value Reference Range Interpretation Comments POC-GLUCOSE METER 171 mg/dL 70-110 H : TESTED A T [facility] 6720 ([facility]) (test code = [facility], 1538) [address]: Shaper Setter/Techni stephanie ID = [id number] for JEROD WERNER COMPREHENSIVE METABOLIC [id number] 04:31:30 Test Item Value Reference Range Interpretation [...] S NOT APPLICABLE FOR DIALYSIS PATIEN TS. Shaper Setter ID - EFE GLACTATE DEHYDROGENASE (LDH)2021-10-25 04:31:30 Test Item Value Reference Range Interpretation Comments LACTATE DEHYDROGENASE (BEAKER) (test 1414 U/L 125-220 H code = 635) Shaper Setter ID - EFE GCALCIUM, [id number] 04:18:59 Test Item Value Reference Range Interpretation Comments CALCIUM IONIZED (BEAKER) (test 1.04 mmol/L 1.12-1.27 L code = 698) PH, BLOOD (BEAKER) (test code = 7.48 1810) BLOOD GAS, [id number] 04:18:35 Test Item Value Reference Range Interpretation [...] (test code = 1819) 36.0 OXYGEN SATURATION, [id number] 04:15:03 Test Item Value Reference Range Interpretation Comments O2 SATURATION (MEASURED) (BEAKER) 65.3 % (test code = 1455) [id number] 04:12:44 Test Item Value Reference Range Interpretation Comments PARTIAL THROMBOPLASTIN TIME 80.5 seconds 22.5-36.0 H (BEAKER) (test code = 760) PROTHROMBIN [id number] 04:11:02 Test Item Value Reference Range Interpretation Comments PROTIME (BEAKER) 16.7 seconds 11.9-14.2 H (test code = 759) INR (BEAKER) (test 1.38 See_Comment [Automat ed message] code = 370) The system [employer]elli[employer] generated this result transmitted ref erence range: <=5.90. The reference range was not used to int erpret this result as normal/abnormal . RECOMMENDED COUMADIN/WARFARIN INR THERAPY RANGESSTANDARD DOSE: 2.0 - 3.0 Includes: PROPHYLAXIS forvenous thrombosis, systemic embolization; TREATMENT for venous thrombosis and/or pulmonary embolus.HIGH RISK: Target INR is 2.5-3.5 for patients with mechanical heart valves.POCT-GLUCOSE [id number] 02:13:43 Test Item Value Reference Range Interpretation Comments POC-GLUCOSE METER 208 mg/dL 70-110 H : TESTED A T [facility] (BEAKER) (test code = [facility], 1538) [address]: Shaper Setter/Techni stephanie ID = [id number] for JEROD WERNER [id number] 23:50:56 Test Item Value Reference Range Interpretation Comments MAGNESIUM (BEAKER) 1.9 mg/dL 1.6-2.6 Specimen moderately (test code = 627) hemolyzed Shaper Setter ID Doug BROWN L-Patient is on Impella, which may hemolyze the blood.Shaper Setter ID Doug BROWN LBASIC METABOLIC [id number] 23:50:56 Test Item Value Reference Range Interpretation [...] is on Impella, which may hemolyze the blood.Shaper Setter ID - PIAYA LLACTIC ACID, [id number] 23:24:13 Test Item Value Reference Range Interpretation Comments LACTATE BLOOD 2.2 mmol/L 0.5-2.2 Specimen moder ately ARTERIAL (2) (BEAKER) hemoly zed (test code = 2874) Shaper Setter ID - PIAYA LHGB/HCT (H&H) - STAT [id number] 23:00:36 Test Item Value Reference Range Interpretation Comments HEMOGLOBIN (BEAKER) (test code = 10.6 GM/DL 13.0-16.8 L 410) HEMATOCRIT (BEAKER) (test code = 31.0 % 40.0-50.0 L 411) GLUCOSE-STAT [id number] 23:00:35 Test Item Value Reference Range Interpretation Comments GLUCOSE RANDOM (BEAKER) (test code 301 mg/dL 70-110 H = 652) BLOOD GAS, [id number] 23:00:19 Test Item Value Reference Range Interpretation [...] (test code = 1819) 36.0 SODIUM NA-STAT [id number] 22:58:51 Test Item Value Reference Range Interpretation Comments SODIUM (BEAKER) (test code = 381) 137 meq/L 136-145 POTASSIUM-STAT [id number] 22:58:51 Test Item Value Reference Range Interpretation Comments POTASSIUM (BEAKER) (test code = 3.5 meq/L 3.6-5.5 L 379) SARS-COV2/RT-PCR ([facility])2021-10-24 21:55:27 Test Item Value Reference Range Interpretation Comments SARS-COV2/RT-PCR (test code = Negative Negative [id number]) Negative result for this test determines that [...] the [place] SARS-CoV-2 assay.Fact Sheet for Healthcare Providers:https://www.tocario.[employer]/lorena/RT SARS-CoV-2 HCP Fact Sheet 51- 029474.pdfFact Sheet for Healthcare Patients:https://www.tocario.[employer]/lorena/RT SARS-CoV-2 Patient Fact Sheet EN 51-909413S6.pdfPOCT-GLUCOSE [id number] 20:56:21 Test Item Value Reference Range Interpretation Comments POC-GLUCOSE METER 297 mg/dL 70-110 H : TESTED A T [facility] 6720 (BEAKER) (test code = [facility], 1538) [address]: Shaper Setter/Techni stephanie ID = [id number] for JEROD WERNER POCT-GLUCOSE [id number] 16:52:57 Test Item Value Reference Range Interpretation Comments POC-GLUCOSE METER 297 mg/dL 70-110 H : TESTED A T [facility] 6720 (BEAKER) (test code = [facility], 1538) [address]372: Shaper Setter/Techni stephanie ID = [id number] for Shivam Lacy BASIC METABOLIC [id number] 16:16:24 Test Item Value Reference Range Interpretation [...] S NOT APPLICABLE FOR DIALYSIS PATIEN TS. Shaper Setter ID - [id number] 16:09:19 Test Item Value Reference Range Interpretation Comments PARTIAL THROMBOPLASTIN TIME 72.0 seconds 22.5-36.0 H (BEAKER) (test code = 760) OXYGEN SATURATION, [id number] 15:32:10 Test Item Value Reference Range Interpretation Comments O2 SATURATION (MEASURED) (BEAKER) 63.0 % (test code = 1455) POCT-GLUCOSE [id number] 14:04:21 Test Item Value Reference Range Interpretation Comments POC-GLUCOSE METER 320 mg/dL 70-110 H : TESTED A T [facility] (BEAKER) (test code = [facility], 1538) [address]: Shaper Setter/Techni stephanie ID = [id number] for Shivam Lacy PLASMA FREE [id number] 11:01:04 Test Item Value Reference Range Interpretation Comments HEMOGLOBIN PLASMA (BEAKER) (test 90.0 mg/dl 0.0-30.0 H code = 1054) COMPREHENSIVE METABOLIC [id number] 11:00:48 Test Item Value Reference Range Interpretation [...] S NOT APPLICABLE FOR DIALYSIS PATIEN TS. Shaper Setter ID - PIAYA [facility] METABOLIC [id number] 11:00:47 Test Item Value Reference Range Interpretation [...] APPLICABLE FOR DIALYSIS PATIEN TS. OXYGEN SATURATION, [id number] 10:45:01 Test Item Value Reference Range Interpretation Comments O2 SATURATION (MEASURED) (BEAKER) 44.2 % (test code = 1455) [id number] 10:43:24 Test Item Value Reference Range Interpretation Comments PARTIAL THROMBOPLASTIN TIME 70.6 seconds 22.5-36.0 H (BEAKER) (test code = 760) [id number] 10:41:03 Test Item Value Reference Range Interpretation Comments MAGNESIUM (BEAKER) 1.8 mg/dL 1.6-2.6 Specimen slightly (test code = 627) hemolyzed Shaper Setter ID - PIAYA LRAD, CHEST, 1 VIEW, NON [id number] 10:35:00Reason for exam:->ImpellaShould this be performed at the bedside?->Yes [facility] : 1960 Sex: MFINAL [...] MDReport Verified Date/Time: 10/24/2021 10:35:24 Reading Location: [facility] Radiology Reading Room LACTIC ACID, [id number] 10:31:59 Test Item Value Reference Range Interpretation Comments LACTATE BLOOD 2.1 mmol/L 0.5-2.2 Specimen sligh tly ARTERIAL (2) (BEAKER) hemoly zed (test code = 2874) Shaper Setter ID - KEVIN LHEMOGLOBIN [id number] 10:15:54 Test Item Value Reference Range Interpretation Comments HEMOGLOBIN A1C 10.0 % See_Comment H [Automated m essage] ELECTROPHORESIS (BEAKER) The system which (test code = 3811) generated this result transmitted ref erence range: <=5.6%. The reference range was not used to int erpret this result as normal/abnormal . "The A1c is measured using a [facility]-certified method. HbA1c value equal to or greater than 6.5% as thediagnosis cutoff for diabetes. An HbA1c value of 5.7- 6.4% indicates increased risk for diabetes (prediabetes)."Shaper Setter ID - ADMPOCT- GLUCOSE [id number] 08:00:55 Test Item Value Reference Range Interpretation Comments POC-GLUCOSE METER 323 mg/dL 70-110 H : TESTED A T [facility] (BEAKER) (test code = [place], 1538) [address]: Shaper Setter/Techni stephanie ID = [id number] for Shivam Lacy (CELLAVISION MANUAL DIFF)2021-10-24 07:42:28 [...] CONCENTRATION Increased (CELLAVISION)(BEAKER) (test code = 3438) Shaper Setter ID - jacob Martínez comments: Slide comments:CBC W/PLT COUNT & AUTO [id number] 07:42:27 Test Item Value Reference Range Interpretation [...] code = 413) RAD, ABDOMEN/KUB, 1 VIEW [id number] 06:50:00Reason for exam:->r/o ileus [facility] : 1960 Sex: [...] MDReport Verified Date/Time: 10/24/2021 06:50:47 REHENSIVE METABOLIC [id number] 05:58:21 Test Item Value Reference Range Interpretation [...] PATIEN TS. Patient on Impella device per [id number] [place] ID - KEVIN Walker has impella device as per rn b#[id number] DEHYDROGENASE (LDH)2021-10-24 05:58:09 Test Item Value Reference Range Interpretation Comments LACTATE DEHYDROGENASE 1448 U/L 125-220 H Specim en markedly (BEAKER) (test code = hemoly zed 635) Shaper Setter ID - KEVIN Walker has impella device as per rn b#[id number] 05:39:54 Test Item Value Reference Range Interpretation Comments PARTIAL THROMBOPLASTIN TIME 56.9 seconds 22.5-36.0 H (BEAKER) (test code = 760) PROTHROMBIN TIME/[id number] 05:38:49 Test Item Value Reference Range Interpretation Comments PROTIME (BEAKER) 20.3 seconds 11.9-14.2 H (test code = 759) INR (BEAKER) (test 1.76 See_Comment [Automat ed message] code = 370) The system whic h generated this result transmitted ref erence range: <=5.90. The reference range was not used to int erpret this result as normal/abnormal . RECOMMENDED COUMADIN/WARFARIN INR THERAPY RANGESSTANDARD DOSE: 2.0 - 3.0 Includes: PROPHYLAXIS forvenous thrombosis, systemic embolization; TREATMENT for venous thrombosis and/or pulmonary embolus.HIGH RISK: Target INR is 2.5-3.5 for patients with mechanical heart valves.[id number] 03:00:52 Test Item Value Reference Range Interpretation Comments PARTIAL THROMBOPLASTIN TIME 52.7 seconds 22.5-36.0 H (BEAKER) (test code = 760) BLOOD GAS, [id number] 02:50:07 Test Item Value Reference Range Interpretation [...] (BEAKER) (test code = 1819) 21.0 PLATELET [id number] 02:43:48 Test Item Value Reference Range Interpretation Comments PLATELET COUNT (BEAKER) (test 436 K/CU MM 150-450 code = 756) Shaper Setter ID - 6000POCT-GLUCOSE [id number] 00:04:48 Test Item Value Reference Range Interpretation Comments POC-GLUCOSE METER 322 mg/dL 70-110 H : TESTED A T [facility] (BEAKER) (test code = [place], 1538) [address]: Shaper Setter/Techni stephanie ID = [id number] for Am eulalioDestin PT/[id number] 22:54:13 Test Item Value Reference Range Interpretation [...] for patients with mechanical heart valves.BASIC METABOLIC [id number] 22:23:25 Test Item Value Reference Range Interpretation [...] S NOT APPLICABLE FOR DIALYSIS PATIEN TS. Shaper Setter ID - DB(CELLAVISION MANUAL DIFF)2021-10-23 22:22:08 Test [...] CONCENTRATION Adequate (CELLAVISION)(BEAKER) (test code = 3438) Shaper Setter ID - dionte Campbell comments: Slide comments:[id number] 22:21:15 Test Item Value Reference Range Interpretation Comments MAGNESIUM (BEAKER) 1.9 mg/dL 1.6-2.6 Specimen slightly (test code = 627) hemolyzed Shaper Setter ID - [id number] 22:21:15 Test Item Value Reference Range Interpretation Comments PHOSPHORUS (BEAKER) 4.2 mg/dL 2.3-4.7 Specimen slightly (test code = 604) hemolyzed Shaper Setter ID - DBLACTIC ACID, [id number] 22:17:32 Test Item Value Reference Range Interpretation Comments LACTATE BLOOD 2.0 mmol/L 0.5-2.2 Specimen sligh tly ARTERIAL (2) (BEAKER) hemoly zed (test code = 2874) Shaper Setter ID - DBOXYGEN SATURATION, [id number] 21:59:28 Test Item Value Reference Range Interpretation Comments O2 SATURATION (MEASURED) (BEAKER) 60.0 % (test code = 1455) BLOOD GAS, [id number] 21:59:23 Test Item Value Reference Range Interpretation [...] 1819) 21.0 RAD, CHEST, 1 VIEW, NON [id number] 21:59:00Reason for exam:- >impellaswanShould this be performed at the bedside?->Yes [facility] : 1960 Sex: MFINAL REPORT RAD, CHEST, 1 VIEW, NON DEPT INDICATION: impellaswan COMPARISON: None FINDINGS: Portable frontal view of the chest. IMPRESSION: Support Lines: Right IJ [place]li catheter tip overlies the right pulmonary artery. Impella device present. Lungs and pleura: There are diffuse pulmonary opacities compatible with pulmonary edema, atelectasis or infection. No pneumo thorax. No large effusion.Heart and mediastinum: Magnified by technique with suggestion of cardiomegaly. Additional findings: None. Signed: Benny Velasquez MDReport Verified Date/Time: 10/23/2021 21:59:50 CBC W/PLT COUNT & AUTO [id number] 21:57:59 Test Item Value Reference Range Interpretation [...] (BEAKER) (test code = 2801) BLOOD GAS, [id number] 20:26:48 Test Item Value Reference Range Interpretation [...] 434 U/L 125-220 H code = 635) Shaper Setter ID - DBBLOOD GAS, [id number] 19:52:03 Test Item Value Reference Range Interpretation [...] (test code = 1819) 100.0 STAT-LAB IONIZED [id number] 19:50:53 Test Item Value Reference Range Interpretation Comments FILTER IONIZED CALCIUM (BEAKER) 1.05 nnol/L (test code = 1854) Reference Range: No NormalsPROTHROMBIN TIME/[id number] 19:24:07 Test Item Value Reference Range Interpretation Comments PROTIME (BEAKER) 22.4 seconds 11.9-14.2 H (test code = 759) INR (BEAKER) (test 1.99 See_Comment [Automat ed message] code = 370) The system Intelliworks generated this result transmitted ref erence range: [...] pg/mL 0-100 H (test code = 700) Shaper Setter ID - DBCOMPREHENSIVE METABOLIC [id number] 19:16:09 Test Item Value Reference Range Interpretation [...] S NOT APPLICABLE FOR DIALYSIS PATIEN TS. Shaper Setter ID - DBCBC W/PLT COUNT & AUTO [id number] 19:14:01 Test Item Value Reference Range Interpretation [...] H PERCENT (BEAKER) (test code = 2801) [id number] 19:08:07 Test Item Value Reference Range Interpretation Comments ACTIVATED CLOTTING TIME 243 sec : 74 -137 seconds, (BEAKER) (test code = Baseli ne: TESTED AT [address]) [facility] [address] [facility] [place], [address]: Shaper Setter/Techni stephanie ID = [id number] for DARLINE KEITA
[2022-01-10 12:54] LABS: Absolute Lymphocytes (CBC) 1.8 K/uL (0.7-4.9); Hematocrit 37.8 % (39.6-49.0); Lymphocytes % 22.7 % (15.3-44.8); MPV 8.4 fL (7.6-11.3); RBC Red Blood Cell Count 4.14 M/uL (4.33-5.43)
[2022-01-10 12:58] LABS: Protime INR 1.89
[2022-01-10 13:13] LABS: Albumin 3.2 g/dL (3.4-5.0); Bilirubin Direct 0.2 mg/dL (0-0.2); Bilirubin Total 0.4 mg/dL (0.2-1.0); Magnesium 1.9 mg/dL (1.8-2.4); Potassium 3.3 mmol/L (3.5-5.1); Protein, Total 7.4 g/dL (6.4-8.2); Troponin High Sensitivity 45.1 pg/mL (<58.9)
--- NOTE | 2022-01-10 13:33 | RAD REPORT ---
EXAM DESCRIPTION: RAD - Chest Single View - 01/10/2022 1:06 pm CLINICAL HISTORY: SOB Chest pain. COMPARISON: Chest Single View dated 12/10/2021; Chest Single View dated 10/23/2021; Chest Single View d ated 10/22/2021; Abdomen 1 View (KUB) dated 10/19/2021 FINDINGS: Portable technique limits examination quality. Mild pulmonary edema. The heart is moderately enlarged size. Changes of a prior CABG noted. IMPRESSION: Mild to moderate CHF.
[2022-01-10] MEDS ORDERED: FUROSEMIDE 40 MG/4 ML VIAL ONE (13:53)
--- NOTE | 2022-01-10 16:29 | EDPHYS ---
Physician Documentation [facility] Name: Paxton Jordan Age: 61 yrs Sex: Male : 1960 Arrival Date: 01/10/2022 Time: 11:35 Bed 18 Private MD: out of town, doctor ED Physician Toni Villatoro HPI: 01/10 12:36 This 61 yrs old Male presents to ER via Wheelchair with complaints of Shortness Of pm1 Breath. 12:36 The patient has shortness of breath at rest. pm1 12:36 Onset: The symptoms/episode began/occurred 3 day(s) ago. Duration: The symptoms are pm1 continuous. The patient's shortness of breath is aggravated by exertion, is alleviated by nothing. Associated signs and symptoms: Pertinent negatives: chest pain, non-productive cough, productive cough, diaphoresis, fever, vomiting. Severity of symptoms: in the emergency department the symptoms are worse. 12:36 The patient has experienced similar episodes in the past, several times. The patient pm1 has been recently seen by a physician: with similar presenting complaints, His rough rice tender recently placed him on Bumex and Lasix. She visited with the patient virtually today and recommended evaluation in the ER. Historical: - Allergies: 11:53 No Known Allergies; ap3 - Home Meds: 12:30 apixaban Oral [Active]; Aspirin Oral [Active]; Bumetanide Oral [Active]; Bupropion Oral ackerman [Active]; citalopram oral [Active]; Cyclobenzaprine Oral [Active]; Docusate Sodium Oral [Active]; Insulin: Humulin 70/30 Sub-Q [Active]; levothyroxine oral [Active]; Metoprolol Tartrate Oral [Active]; Oxycodone-Acetaminophen Oral [Active]; pantoprazole Oral [Active]; polyethylene glycol 3350 Oral [Active]; Potassium Chloride Oral [Active]; quetiapine Oral [Active]; Simvastatin Oral [Active]; tamsulosin Oral [Active]; testosterone cypionate [Active]; Tramadol Oral [Active]; - PMHx: 11:48 blood clots; Congestive heart failure; diabetes mellitus; ap3 - PSHx: 11:48 Coronary artery bypass graft; Stented artery; ap3 - Immunization history:: Client reports having NOT received the Covid vaccine. Flu vaccine status is unknown. - Social history:: Smoking status: Patient denies any tobacco usage or history of. Patient uses street drugs, marijuana. ROS: 12:36 Constitutional: Negative for fever, chills, and weight loss, Cardiovascular: Negative pm1 for chest pain, palpitations, and edema. 12:36 Abdomen/GI: Negative for abdominal pain, nausea, vomiting, diarrhea, and constipation, Back: Negative for injury and pain, MS/Extremity: Negative for injury and deformity, Skin: Negative for injury, rash, and discoloration, Neuro: Negative for headache, weakness, numbness, tingling, and seizure. 12:36 Respiratory: Positive for dyspnea on exertion, shortness of breath, Negative for cough. 12:36 All other systems are negative. Exam: 12:36 Constitutional: This is a well developed, well nourished patient who is awake, alert, pm1 and in no acute distress. Head/Face: Normocephalic, atraumatic. 12:36 Back: No spinal tenderness. No costovertebral tenderness. Full range of motion. Skin: Warm, dry with normal turgor. Normal color with no rashes, no lesions, and no evidence of cellulitis. MS/ Extremity: Pulses equal, no cyanosis. Neurovascular intact. Full, normal range of motion. 12:36 Cardiovascular: Exam negative for acute changes, Rate: normal, Rhythm: regular, Pulses: no pulse deficits are appreciated, Heart sounds: normal. 12:36 Respiratory: the patient does not display signs of respiratory distress, Respirations: normal, Breath sounds: decreased breath sounds, are located in both bases. 12:36 Abdomen/GI: Exam negative for acute changes, Inspection: abdomen appears normal, Palpation: abdomen is soft and non-tender, in all quadrants. 12:36 Neuro: Exam negative for acute changes, Orientation: is normal, Mentation: is normal, Motor: is normal, moves all fours. Vital Signs: 11:45 BP 98 / 66; Pulse 71; Resp 22; Temp 97.9; Pulse Ox 100% ; Weight 109.32 kg; Height 6 ap3 ft. (182.88 cm); 12:37 BP 101 / 67; Pulse 70; Resp 20; Pulse Ox 100% ; ackerman 13:34 BP 108 / 71; Pulse 70; Resp 20; Pulse Ox 94% on R/A; ackerman 15:57 BP 117 / 81; Pulse 71; Resp 17; Pulse Ox 93% ; ackerman 17:42 BP 104 / 60; Pulse 68; Resp 18; Pulse Ox 96% on R/A; ackerman 18:30 BP 118 / 71; Pulse 72; Resp 17; Pulse Ox 95% on R/A; ackerman 19:25 BP 110 / 72; Pulse 69; Resp 19; Pulse Ox 95% on R/A; kd3 11:45 Body Mass Index 32.69 (109.32 kg, 182.88 cm) ap3 MDM: 12:20 Patient medically screened. pm1 14:06 Data reviewed: vital signs. Data interpreted: Pulse oximetry: on room air is 94 %. pm1 Interpretation: normal. 14:06 ED course: Patient reported last PE in 2005. Patient has green filter and is currently pm1 taking eliquis. No right heart strain on EKG. Patient clinically presenting with 15-20 pounds weight gain over the past 3-4 weeks and chest xray shows mild to moderate CHF. Likely cause for his shortness of breath is CHF. 16:23 ED course: Discussed with patient options for plan of care. Patient's vital signs pm1 stable with ambulation but reports dyspnea. Patient wants to admitted to the hospital for diuresis versus going home with increased diuretics. 18:46 Physician consultation: Marce CHU regarding admission, patient's condition, and pm1 will see patient in ED. 19:10 Refusal of service: The patient/guardian displays adequate decision making capability pm1 and despite a detailed discussion of alternatives, benefits, risks, and consequences refuses: Admission to the hospital for further work-up and treatment, Patient decided that he wants to go home and take the medications at his pharmacy from his agency sales representative instead. he reports that his agency sales representative and rough rice tender are working together to manage his CHF and kidneys. Informed the patient that he is signing out against advice and can return to the ER for admission at anytime. 01/10 12:32 Order name: Basic Metabolic Panel; Complete Time: 13:22 pm1 01/10 12:32 Order name: CBC with Diff; Complete Time: 13:22 pm1 01/10 12:32 Order name: LFT's; Complete Time: 13:22 pm1 01/10 12:32 Order name: Magnesium; Complete Time: 13:22 pm1 01/10 12:32 Order name: NT PRO-BNP; Complete Time: 13:22 pm1 01/10 12:32 Order name: PT-INR; Complete Time: 13:22 pm1 01/10 12:32 Order name: Troponin HS; Complete Time: 13:22 pm1 01/10 12:32 Order name: XRAY Chest (1 view); Complete Time: 13:42 pm1 01/10 12:32 Order name: EKG; Complete Time: 12:33 pm1 01/10 12:32 Order name: Cardiac monitoring; Complete Time: 12:51 pm1 01/10 12:32 Order name: EKG - Nurse/Tech; Complete Time: 13:30 pm1 01/10 12:32 Order name: IV Saline Lock; Complete Time: 12:51 pm1 01/10 12:32 Order name: COVID-19 SARS RT PCR (Document "Date of Onset" if Symptomatic); Complete pm1 Time: 14:10 01/10 12:32 Order name: Labs collected and sent; Complete Time: 12:51 pm1 01/10 12:32 Order name: O2 Per Protocol; Complete Time: 12:51 pm1 01/10 12:32 Order name: O2 Sat Monitoring; Complete Time: 12:51 pm1 Administered Medications: 13:52 Drug: Lasix (furosemide) 40 mg Route: IVP; Site: left forearm; ackerman 13:52 Follow up: Response: No adverse reaction ackerman Disposition Summary: 01/10/22 19:14 Discharge Ordered Location: Home(01/10/22 19:14) pm1 Problem: new(01/10/22 19:14) pm1 Symptoms: have improved(01/10/22 19:14) pm1 Condition: Undetermined(01/10/22 19:14) pm1 Diagnosis - Acute on chronic systolic (congestive) heart failure(01/10/22 19:14) pm1 - Dyspnea pm1 Followup: pm1 - With: Emergency Department - When: As needed - Reason: Worsening of condition Followup: pm1 - With: Private Physician - When: 2 - 3 days - Reason: Recheck today's complaints, Continuance of care, Re-evaluation by your physician Discharge Instructions: - Discharge Summary Sheet pm1 - Heart Failure, Diagnosis pm1 Forms: - Medication Reconciliation Form pm1 - Thank You Letter pm1 - Antibiotic Education pm1 - Prescription Opioid Use pm1 Signatures: Dispatcher [employer] EDAntonio Mckoy NP METAL WINDOW SCREEN ASSEMBLER pm1 Charisma Rosen RN RN ap3 Radha Marie RN RN ackerman Corrections: (The following items were deleted from the chart) 19:14 16:28 Inpatient Admission pm1 pm1 19:14 16:28 Nicko Mcallister pm1 pm1 19:14 16:28 Telemetry/MedSurg (Inpatient) pm1 pm1 19:14 16:28 Stable pm1 pm1 19:14 16:28 new pm1 pm1 19:14 16:28 are unchanged pm1 pm1 19:14 16:28 Standard pm1 pm1 19:14 16:28 pm1 pm1 19:14 16:28 Acute on chronic systolic (congestive) heart failure pm1 pm1
--- NOTE | 2022-01-10 16:29 | ER ---
Nurse's Notes [facility] Name: Paxton Jordan Age: 61 yrs Sex: Male : 1960 Arrival Date: 01/10/2022 Time: 11:35 Bed 18 Private MD: out of town, doctor Diagnosis: Acute on chronic systolic (congestive) heart failure;Dyspnea Presentation: 01/10 11:45 Chief complaint: Patient states: he feels short of breath which began over the last ap3 couple of days. Patient states when he lays down, he also feels a tightness in his neck. Coronavirus screen: At this time, the client does not indicate any symptoms associated with coronavirus-19. Ebola Screen: No symptoms or risks identified at this time. Initial Sepsis Screen: Does the patient meet any 2 criteria? No. Patient's initial sepsis screen is negative. Does the patient have a suspected source of infection? No. Patient's initial sepsis screen is negative. Risk Assessment: Do you want to hurt yourself or someone else? Patient reports no desire to harm self or others. Onset of symptoms was January 08, 2022. 11:45 Method Of Arrival: Wheelchair ap3 11:53 Acuity: MITESH 2 ap3 Triage Assessment: 11:49 General: Appears uncomfortable, Behavior is calm, cooperative. Pain: Denies pain. ap3 Neuro: Level of Consciousness is awake, alert, obeys commands, Oriented to person, place, time, situation, Appropriate for age Speech is normal. Cardiovascular: Patient's skin is warm and dry. patient wearing life vest. Respiratory: Reports shortness of breath Airway is patent Respiratory effort is even, unlabored, Onset: The symptoms/episode began/occurred over the last couple of days. 12:34 Respiratory: the patient has mild shortness of breath. ackerman Historical: - Allergies: 11:53 No Known Allergies; ap3 - Home Meds: 12:30 apixaban Oral [Active]; Aspirin Oral [Active]; Bumetanide Oral [Active]; Bupropion Oral ackerman [Active]; citalopram oral [Active]; Cyclobenzaprine Oral [Active]; Docusate Sodium Oral [Active]; Insulin: Humulin 70/30 Sub-Q [Active]; levothyroxine oral [Active]; Metoprolol Tartrate Oral [Active]; Oxycodone-Acetaminophen Oral [Active]; pantoprazole Oral [Active]; polyethylene glycol 3350 Oral [Active]; Potassium Chloride Oral [Active]; quetiapine Oral [Active]; Simvastatin Oral [Active]; tamsulosin Oral [Active]; testosterone cypionate [Active]; Tramadol Oral [Active]; - PMHx: 11:48 blood clots; Congestive heart failure; diabetes mellitus; ap3 - PSHx: 11:48 Coronary artery bypass graft; Stented artery; ap3 - Immunization history:: Client reports having NOT received the Covid vaccine. Flu vaccine status is unknown. - Social history:: Smoking status: Patient denies any tobacco usage or history of. Patient uses street drugs, marijuana. Screenin:50 Abuse screen: Denies threats or abuse. Nutritional screening: No deficits noted. ap3 Tuberculosis screening: No symptoms or risk factors identified. 12:29 Fall Risk None identified. ackerman Assessment: 12:29 Cardiovascular: Rhythm is regular. Respiratory: Airway is patent Breath sounds are ackerman diminished bilaterally. 16:22 Reassessment: prior to ambulating PT , pt was resting on his side sating at 93%. pt ackerman ambulated and sats went up to 98-99%. 19:23 Reassessment: Patient and/or family updated on plan of care and expected duration. Pain kd3 level reassessed. Patient is alert, oriented x 3, equal unlabored respirations, skin warm/dry/pink. pt would not like to be admitted. pt requesting to be discharged. provider notified. General: Appears in no apparent distress. Behavior is calm, cooperative. Neuro: Level of Consciousness is awake, alert, obeys commands, Oriented to person, place, time, situation. Respiratory: Airway is patent Trachea midline Respiratory effort is even, unlabored. Vital Signs: 11:45 BP 98 / 66; Pulse 71; Resp 22; Temp 97.9; Pulse Ox 100% ; Weight 109.32 kg; Height 6 ap3 ft. (182.88 cm); 12:37 BP 101 / 67; Pulse 70; Resp 20; Pulse Ox 100% ; ackerman 13:34 BP 108 / 71; Pulse 70; Resp 20; Pulse Ox 94% on R/A; ackerman 15:57 BP 117 / 81; Pulse 71; Resp 17; Pulse Ox 93% ; ackerman 17:42 BP 104 / 60; Pulse 68; Resp 18; Pulse Ox 96% on R/A; ackerman 18:30 BP 118 / 71; Pulse 72; Resp 17; Pulse Ox 95% on R/A; ackerman 19:25 BP 110 / 72; Pulse 69; Resp 19; Pulse Ox 95% on R/A; kd3 11:45 Body Mass Index 32.69 (109.32 kg, 182.88 cm) ap3 ED Course: 11:35 Patient arrived in ED. ds1 11:35 out of town, doctor is Private Physician. ds1 11:48 Triage completed. ap3 11:50 Arm band placed on right wrist. ap3 12:20 Antonio Henry NP is PHCP. pm1 12:20 Toni Villatoro MD is Attending Physician. pm1 12:29 Radha Marie, HAO is Primary Nurse. ackerman 12:29 Patient has correct armband on for positive identification. Bed in low position. ackerman 12:29 No provider procedures requiring assistance completed. ackerman 12:51 COVID-19 SARS RT PCR (Document "Date of Onset" if Symptomatic) Sent. ackerman 13:08 XRAY Chest (1 view) In Process Unspecified. EDMS 16:27 Nicko Mcallister is Hospitalizing Provider. pm1 19:19 Primary Nurse role handed off by Radha Marie, HAO mw2 19:23 Emeli Fortune, HAO is Primary Nurse. kd3 19:24 IV discontinued, intact, bleeding controlled, No redness/swelling at site. Pressure kd3 dressing applied. Administered Medications: 13:52 Drug: Lasix (furosemide) 40 mg Route: IVP; Site: left forearm; ackerman 13:52 Follow up: Response: No adverse reaction ackerman Outcome: 16:28 Decision to Hospitalize by Provider. pm1 19:14 Discharge ordered by . pm1 19:24 Discharged to home ambulatory. kd3 19:24 Condition: stable 19:24 Discharge instructions given to patient, Instructed on discharge instructions, follow up and referral plans. Demonstrated understanding of instructions, follow-up care. 19:43 Patient left the ED. kd3 Signatures: Dispatcher [employer] EDIL Evangelina Avila ds1 Antonio Henry NP MARSHMALLOW MACHINE OPERATOR pm1 Charisma Rosen RN RN ap3 Kimmy Salazar mw2 Emeli Fortune RN RN kd3 Radha Marie RN RN ackerman Corrections: (The following items were deleted from the chart) 11:53 11:45 Acuity: MITESH 3 ap3 ap3
--- NOTE | 2022-01-11 07:13 | EKG ---
Test Date: 2022-01-10 Test Time: 13:28:38 Towel Stretcher: ERIC MEASUREMENT RESULTS: Intervals: Rate: 70 RI: 256 QRSD: 144 QT: 480 QTc: 518 [place]: P: 22 RI: 256 QRS: 92 T: -67 INTERPRETIVE STATEMENTS: Sinus rhythm with 1st degree AV block Rightward axis Nonspecific intraventricular block Cannot rule out Anterior infarct, age undetermined T wave abnormality, consider inferior ischemia Abnormal ECG Compared to ECG 12/10/2021 08:35:33 Myocardial infarct finding now present T-wave abnormality now present Atrial premature complex(es) no longer present ST (T wave) deviation no longer present Prolonged QT interval no longer present Possible ischemia still present Electronically Signed On 01-11-22 07:09:41 CDT by Murray Gastelum
[2022-01-11 10:20] VITALS: TEMP 97.9
[2022-01-11 10:27] VITALS: O2SAT 95
[2022-01-11 10:28] VITALS: BP 110/72
--- NOTE | 2022-01-11 16:40 | EKG ---
Test Date: 2022-01-10 Test Time: 13:29:16 Manager Bar: DAVIUS MEASUREMENT RESULTS: Intervals: Rate: 69 WV: 254 QRSD: 144 QT: 434 QTc: 465 [place]: P: 31 WV: 254 QRS: 99 T: 102 INTERPRETIVE STATEMENTS: Sinus rhythm with 1st degree AV block Rightward axis Nonspecific intraventricular block Cannot rule out Anterior infarct, age undetermined Abnormal ECG Compared to ECG 01/10/2022 13:28:38 T-wave abnormality no longer present Possible ischemia no longer present Myocardial infarct finding still present Electronically Signed On 01-11-22 16:40:11 CDT by Murray Gastelum
== END 2022-01-10 19:43 | disposition home or self-care (01) ==
LOC: ER 11:34
DX: I50.23 Acute on chronic systolic (congestive) heart failure (principal); E11.9 Type 2 diabetes mellitus without complications; Z95.1 Presence of aortocoronary bypass graft; Z20.822 Contact with and (suspected) exposure to COVID-19; Z79.4 Long term (current) use of insulin; Z79.82 Long term (current) use of aspirin
CPT/HCPCS: 36415; 71045; 80048; 80076; 83735; 83880; 84484; 85025; 85610; 93005; 96374; 99284; J1940; U0003